=== PATIENT | male | born 1950 | race Caucasian/White ===

== ENCOUNTER 2021-05-08 11:34 | Outpatient (REF) | payer MEDICARE, SELFPAY ==
--- NOTE | ~2021-05-08 | XR_ITS ---
EXAMINATION: XR CHEST CLINICAL INFORMATION: COPD COMPARISON: None TECHNIQUE: 2 views of the chest were obtained. FINDINGS: The lungs are hypoexpanded with bandlike atelectasis in both midlungs. No acute pneumonic process seen. The heart size and pulmonary vascularity is normal. No gross bony abnormality seen. XR/XR chest 2V IMPRESSION: Bilateral bandlike atelectasis in both midlung regions.
== END 2021-05-08 11:35 | disposition home or self-care (01) ==
LOC: HO.HMGCX 11:34
PROVIDERS: PCP Internal Medicine; Visit Provider Internal Medicine
DX: J44.9 Chronic obstructive pulmonary disease, unspecified (principal)
CPT/HCPCS: 71046

== ENCOUNTER 2021-05-10 18:28 | Emergency (ER) | payer MEDICARE, SELFPAY ==
--- NOTE | ~2021-05-10 | XR_ITS ---
EXAMINATION: PORTABLE CHEST 1 VIEW CLINICAL INFORMATION: cough . COMPARISON: 05/08/2021. TECHNIQUE: Portable frontal view of the chest was obtained. FINDINGS: The lungs are well expanded. Minimal dependent atelectasis but no superimposed focal infiltrate, effusion, edema, or pneumothorax. Cardiac and mediastinal silhouettes are within normal limits for technique. No acute bony abnormality seen. XR/XR chest 1V IMPRESSION: Minimal atelectasis improved from the prior study.
[2021-05-10 19:08] VITALS: BP 122/78; PULSE 65; RESP 18; TEMP 36.8; O2SAT 89; BMI 34.8
[2021-05-10 19:39] LABS: MANUAL DIFF FLAG NO
[2021-05-10 19:40] LABS: Basophils Absolute Auto 0.1 X10*3/uL (0.0-0.2); Basophils Percent Auto 0.8 % (0-2); Eosinophils Absolute Auto 0.6 X10*3/uL (0.0-0.4); Hematocrit 49.2 % (42-52); Hemoglobin 16.2 g/dl (14.0-18.0); Imm Gran Abs Auto 0.02 X10*3/uL (0.00-0.03); Imm Gran Pct Auto 0.2 % (0.0-0.4); Lymphocytes Absolute Auto 3.2 X10*3/uL (1.2-4.9); Lymphocytes Percent Auto 31.8 % (20-40); Mean Corpuscular HGB Conc 32.9 g/dl (31.0-36.0); Mean Corpuscular Hemoglobin 29.3 pg (27.0-33.0); Mean Platelet Volume 9.4 fL (9.4-12.4); Monocytes Absolute Auto 1.1 X10*3/uL (0.1-1.2); Monocytes Percent Auto 10.3 % (2-11); Neutrophils Absolute Auto 5.2 X10*3/uL (2.0-8.3); Neutrophils Percent Auto 50.9 % (45-73); Platelet Count 360 X10*3/uL (160-400); Red Blood Count 5.53 X10*6/uL (4.60-5.80); Red Cell Distribution Width 17.1 % (11.0-16.0); White Blood Count 10.2 X10*3/uL (4.8-10.8)
[2021-05-10 19:55] LABS: COVID-19 Test Negative (Negative)
[2021-05-10 19:56] LABS: Alanine Aminotransferase 23 U/L (0-40); Albumin Level 4.1 g/dL (3.5-5.0); Alkaline Phosphatase 96 U/L (39-117); Anion Gap 14 (12-20); Aspartate Amino Transferase 18 U/L (5-37); Bilirubin Total 0.4 mg/dL (0.0-1.0); Blood Urea Nitrogen 28 mg/dL (9-16); Calcium 9.3 mg/dL (8.4-10.2); Carbon Dioxide 27 mmol/L (22-29); Chloride 107 mmol/L (96-108); Creatinine Clr Calc Pharmacy 73.1; Estimated Glomerular Filt Rate 59; Glucose Random 180 mg/dL (60-115); Potassium 4.5 mmol/L (3.3-5.1); Sodium 143 mmol/L (135-145); Total Protein 7.2 g/dL (6.5-8.0)
[2021-05-10] MEDS: Albuterol Sulfate (0.083%) 2.5 MG/3 ML VIAL.NEB 10 MG INHALE (22:01)
--- NOTE | 2021-05-10 22:18 | ED.SOB ---
HPI - SOB/Dyspnea General Chief Complaint: Dyspnea Stated Complaint: pneumonia? Time Seen by Provider: 05/10/21 21:34 Source: patient Mode of arrival: ambulatory Limitations: no limitations History of Present Illness HPI Narrative: Patient comes to emergency room complaining of shortness of breath. Patient states that he went to urgent care 2 days ago, diagnosed with bronchitis, sent home with Bactrim. Patient states that he still have dyspnea and cough. Patient has history of both, asthma and COPD. Patient denies fever chills, occasional dry cough. Patient denies chest pain, abdominal pain, nausea vomiting. Related Data Home Medications Medication Instructions Recorded Confirmed albuterol sulfate mg INHALATION Q6H PRN 06/23/20 04/30/21 albuterol sulfate 90 mcg/actuation INHALATION 06/23/20 04/30/21 aerosol inhaler aspirin 81 mg tablet,delayed 81 mg PO DAILY 06/23/20 04/30/21 release (Adult Low Dose Aspirin) docusate sodium 100 mg capsule 100 mg PO DAILY 06/23/20 04/30/21 (Stool Softener) fluticasone propionate 50 1 spray INTRANASAL DAILY 06/23/20 04/30/21 mcg/actuation nasal spray,suspension metoprolol succinate 50 mg 50 mg PO DAILY 06/23/20 04/30/21 tablet,extended release 24 hr oxybutynin chloride 10 mg 20 mg PO QAM 06/23/20 04/30/21 tablet,extended release 24 hr polyethylene glycol 3350 17 17 g PO DAILY 06/23/20 04/30/21 gram/dose oral powder (Miralax) revefenacin 175 mcg/3 mL solution mcg INHALATION 06/23/20 04/30/21 for nebulization valsartan 40 mg tablet 40 mg PO BID 06/23/20 04/30/21 amiodarone 200 mg tablet 200 mg PO BID 03/28/21 04/30/21 Previous Rx's Medication Instructions Recorded furosemide 40 mg tablet 40 mg PO QAM #90 tab 09/15/20 omeprazole 40 mg capsule,delayed 40 mg PO DAILY #90 cap 03/16/21 release sulfamethoxazole 800 1 tab PO BID 7 Days #14 tab 05/08/21 mg-trimethoprim 160 mg tablet (Bactrim DS) cefuroxime axetil 250 mg tablet 250 mg PO BID #14 tab 05/11/21 prednisone 50 mg tablet 50 mg PO DAILY #5 tab 05/11/21 Allergies Allergy/AdvReac Type Severity Reaction Status Date / Time fish derived [FISH] Allergy Unknown ANGIOEDEMA Verified 05/10/21 19:07 tamsulosin [Flomax] Allergy Unknown Unknown Verified 05/10/21 19:07 Review of Systems Review of Systems: Constitutional : No Weight loss, No Fever, No Chills, No Night Sweats, No Fatigue, No Malaise ENT/Mouth : No Hearing loss, No Ear Pain, No Nasal Congestion, No Sinus Pain, No Hoarseness, No sore throat, No Rhinorrhea, No Swallowing Difficulty Eyes: No Eye Pain, No Swelling, No Redness, No Foreign Body, No Discharge, No Vision Changes Cardiovascular : No Chest Pain, complaining of chest tightness, No SOB, No Dyspnea on Exertion, No Orthopnea, No Edema, No Palpitations Respiratory : Patient complaining of dry No Sputum, complaining of wheezing and dyspnea Gastrointestinal : No Nausea, No Vomiting, No Diarrhea, No Constipation, No abdominal Pain, No Hematochezia, No Melena Genitourinary : no irregular bleeding, No Dysuria, No Urinary Frequency, No Hematuria, No Urinary Incontinence, No Urgency, No Flank Pain, No Urinary Flow Changes, No Hesitancy Musculoskeletal : No joint pain, No Myalgias, No Joint Swelling Skin : No Skin Lesions, No rash Neuro : No Weakness, No Numbness, No Paresthesias, No Loss of Consciousness, No Dizziness, No Headache Psych : No Anxiety/Panic, No Depression, No SI/HI/AH/VH, No Social Issues, Heme/Lymph: No Bruising, No Bleeding,No Lymphadenopathy Endocrine : No Polyuria, No Polydipsia, No Temperature Intolerance [facility] Past Medical History Medical History Asthma Cardiomyopathy COVID-19 Hypertension Obesity Surgical History History of colonoscopy History of cystoscopy History of eye surgery History of surgery History of tonsillectomy History of transurethral resection of prostate Status post orchiopexy Family History Family History Father Heart disease Mother Colon cancer Brother No problems noted. Brother No problems noted. Sister No problems noted. Social History Social History Housing: House Alcohol intake: current Alcohol intake frequency: holidays/special occasions only Patient Tobacco Use Status: Former Tobacco user Tobacco use type: Cigarette Years Smoked: 50 e-Cigarette/Vaping Use: Never Used Second Hand Smoke Exposure: Yes Advance Directives: No Advance Directives Information Provided: No service: No Current occupational status: employed and retired Physical Exam Vital Signs: Vital Signs: Last Vital Signs Temp 98.3 F 05/10/21 19:08 Pulse 57 05/10/21 22:41 Resp 16 05/10/21 22:41 BP 129/70 05/10/21 22:41 Pulse Ox 96 05/10/21 22:41 Body Mass Index 34.8 Const: Other: Appearance: Alert. Oriented X3. Mild respiratory distress Eyes: Pupils equal, round and reactive to light. ENT: Pharynx normal. Neck: Normal inspection. Neck supple. No lymph nodes noted. No crepitus CVS: Normal heart rate and rhythm. Pulses normal. Normal S1 and S2 Respiratory: Patient has mild respiratory distress, decreased air movement, wheezing, no crackles. Abdomen: Soft and nontender. No rigidity. No distention. Skin: Skin warm and dry. Normal skin color. Normal skin turgor. Extremities: No lower extremity edema. No lower extremity edema. No Lacerations. No Rash Neuro: Oriented X 3. No motor deficit. No sensory deficit. Moving all extermities. No slurred speech. Course Course Course Narrative: Patient has history of both, COPD and asthma. At this time, patient has significant wheezing, dry cough, no increased sputum production, chest x-ray does not show any infiltrates. Sepsis is not suspected at this time, patient is likely having an asthma exacerbation rather than a COPD exacerbation. However, given his history patient will be treated empirically with antibiotics. Patient was given a Zithromax, ceftriaxone, magnesium, Solu-Medrol, and an hour long albuterol treatment. Patient is COVID negative Patient's white blood cell count 10.2, lactic within normal limits, no fever, sepsis not suspected. After the above-mentioned treatment, patient states that he feels much better, breathing at baseline. Ambulation trial was done, patient was asymptomatic. Patient's oxygen saturation dropped to 89%. I discussed with the patient that ideally he should be admitted. Patient declined, states he feels really well, states his baseline is 90%. Patient sat down on his oxygen improved to 92%. Patient wants to go home, declined admission Patient states he has enough albuterol for his breathing treatments and albuterol palms, declined additional prescription MDM - SOB/Dyspnea Lab Data Result diagrams: 05/10/21 19:32 05/10/21 19:32 Labs: Lab Results 05/10/21 05/10/21 05/10/21 Range/Units 19:32 19:32 19:32 WBC 10.2 (4.8-10.8) X10*3/uL RBC 5.53 (4.60-5.80) X10*6/uL Hgb 16.2 (14.0-18.0) g/dl Hct 49.2 (42-52) % MCV 89.0 (80-98) fL MCH 29.3 (27.0-33.0) pg MCHC 32.9 (31.0-36.0) g/dl RDW 17.1 H (11.0-16.0) % Plt Count 360 (160-400) X10*3/uL MPV 9.4 (9.4-12.4) fL Immature Gran % (Auto) 0.2 (0.0-0.4) % Neut % (Auto) 50.9 (45-73) % Lymph % (Auto) 31.8 (20-40) % [place] % (Auto) 10.3 (2-11) % Eos % (Auto) 6.0 H (0-4) % Baso % (Auto) 0.8 (0-2) % Lymph # (Auto) 3.2 (1.2-4.9) X10*3/uL [place] # (Auto) 1.1 (0.1-1.2) X10*3/uL Eos # (Auto) 0.6 H (0.0-0.4) X10*3/uL Baso # (Auto) 0.1 (0.0-0.2) X10*3/uL Abs Immat Gran (auto) 0.02 (0.00-0.03) X10*3/uL Absolute Neuts (auto) 5.2 (2.0-8.3) X10*3/uL Absolute Nucleated RBC 0.000 (0.0-0.012) X10*3/uL Nucleated RBC % (auto) 0.0 (0.0-0.2) /100WBC Sodium 143 (135-145) mmol/L Potassium 4.5 (3.3-5.1) mmol/L Chloride 107 (96-108) mmol/L Carbon Dioxide 27 (22-29) mmol/L Anion Gap 14 (12-20) BUN 28 H (9-16) mg/dL Creatinine 1.22 (0.5-1.4) mg/dL Estim Creat Clear Calc 73.1 Estimated GFR 59 Random Glucose 180 H (60-115) mg/dL Lactic Acid (0.5-2.0) mmol/L Calcium 9.3 (8.4-10.2) mg/dL Total Bilirubin 0.4 (0.0-1.0) mg/dL AST 18 (5-37) U/L ALT 23 (0-40) U/L Alkaline Phosphatase 96 (39-117) U/L Troponin I High Sens (<3.5-35.0) ng/L Total Protein 7.2 (6.5-8.0) g/dL Albumin 4.1 (3.5-5.0) g/dL COVID-19 (ROSIE) Negative (Negative) COVID-19 Clin Com See Note 05/10/21 05/10/21 Range/Units 19:32 22:55 WBC (4.8-10.8) X10*3/uL RBC (4.60-5.80) X10*6/uL Hgb (14.0-18.0) g/dl Hct (42-52) % MCV (80-98) fL MCH (27.0-33.0) pg MCHC (31.0-36.0) g/dl RDW (11.0-16.0) % Plt Count (160-400) X10*3/uL MPV (9.4-12.4) fL Immature Gran % (Auto) (0.0-0.4) % Neut % (Auto) (45-73) % Lymph % (Auto) (20-40) % [place] % (Auto) (2-11) % Eos % (Auto) (0-4) % Baso % (Auto) (0-2) % Lymph # (Auto) (1.2-4.9) X10*3/uL [place] # (Auto) (0.1-1.2) X10*3/uL Eos # (Auto) (0.0-0.4) X10*3/uL Baso # (Auto) (0.0-0.2) X10*3/uL Abs Immat Gran (auto) (0.00-0.03) X10*3/uL Absolute Neuts (auto) (2.0-8.3) X10*3/uL Absolute Nucleated RBC (0.0-0.012) X10*3/uL Nucleated RBC % (auto) (0.0-0.2) /100WBC Sodium (135-145) mmol/L Potassium (3.3-5.1) mmol/L Chloride (96-108) mmol/L Carbon Dioxide (22-29) mmol/L Anion Gap (12-20) BUN (9-16) mg/dL Creatinine (0.5-1.4) mg/dL Estim Creat Clear Calc Estimated GFR Random Glucose (60-115) mg/dL Lactic Acid 1.6 (0.5-2.0) mmol/L Calcium (8.4-10.2) mg/dL Total Bilirubin (0.0-1.0) mg/dL AST (5-37) U/L ALT (0-40) U/L Alkaline Phosphatase (39-117) U/L Troponin I High Sens 4.9 (<3.5-35.0) ng/L Total Protein (6.5-8.0) g/dL Albumin (3.5-5.0) g/dL COVID-19 (ROSIE) (Negative) COVID-19 Clin Com Discharge Plan Discharge Clinical Impression: COPD (chronic obstructive pulmonary disease) Qualifiers: COPD type: unspecified COPD Qualified Code(s): J44.9 - Chronic obstructive pulmonary disease, unspecified Patient Disposition: Home, Self-Care Instructions: COPD (Chronic Obstructive Pulmonary Disease) (ED) Additional Instructions: Please follow-up with your primary care physician tomorrow. If you have any worsening or new symptoms, please return to the emergency room or call 911 Prescriptions: New cefuroxime axetil 250 mg tablet 250 mg PO BID Qty: 14 RF: 0 prednisone 50 mg tablet 50 mg PO DAILY Qty: 5 RF: 0 No Action furosemide 40 mg tablet 40 mg PO QAM Qty: 90 RF: 8 omeprazole 40 mg capsule,delayed release(DR/EC) 40 mg PO DAILY Qty: 90 RF: 8 albuterol sulfate 90 mcg/actuation HFA aerosol inhaler inhalation RF: 0 metoprolol succinate 50 mg tablet extended release 24 hr 50 mg PO DAILY RF: 0 albuterol sulfate 2.5 mg /3 mL (0.083 %) solution for nebulization inhalation Q6H PRN (Reason: wheezing) RF: 0 oxybutynin chloride 10 mg tablet extended release 24hr 20 mg PO QAM RF: 0 fluticasone propionate 50 mcg/actuation spray,suspension 1 spray intranasal DAILY RF: 0 valsartan 40 mg tablet 40 mg PO BID RF: 0 Yupelri 175 mcg/3 mL solution for nebulization inhalation RF: 0 aspirin [Adult Low Dose Aspirin] 81 mg tablet,delayed release (DR/EC) 81 mg PO DAILY RF: 0 docusate sodium [Stool Softener] 100 mg capsule 100 mg PO DAILY RF: 0 polyethylene glycol 3350 [Miralax] 17 gram/dose powder 17 g PO DAILY RF: 0 amiodarone 200 mg tablet 200 mg PO BID RF: 0 sulfamethoxazole-trimethoprim [Bactrim DS] 800-160 mg tablet 1 tab PO BID 7 Days Qty: 14 RF: 0
--- NOTE | 2021-05-10 22:21 | ECG_ITS ---
Test Reason : SOB Blood Pressure : / mmHG Vent. Rate : 056 BPM Atrial Rate : 056 BPM P-R Int : 180 ms QRS Dur : 150 ms QT Int : 506 ms P-R-T Axes : 054 006 124 degrees QTc Int : 488 ms Sinus bradycardia Left bundle branch block Abnormal ECG When compared with ECG of 17-SEP-2018 02:07, Premature supraventricular complexes are no longer Present Vent. rate has decreased BY 46 BPM Left bundle branch block is now Present Referred By: Janett Hart Electronically Signed By:HOMERO RICHARDSON MD
[2021-05-10 22:41] VITALS: BP 129/70; PULSE 57; RESP 16; O2SAT 96
[2021-05-10 22:49] LABS: Troponin-I High Sensitivity 4.9 ng/L (<3.5-35.0)
[2021-05-10] MEDS: methylPREDNISolone Sod Succ 125 MG/2 ML VIAL IVPUSH (22:59)
[2021-05-10] MEDS: Magnesium Sulfate/H2O 2 GM/50 ML PIGGYBACK IV (23:00)
[2021-05-10 23:14] LABS: Lactic Acid 1.6 mmol/L (0.5-2.0)
[2021-05-10] MEDS: Azithromycin 500 MG in 0.9 % Sodium Chloride 250 ML 125 MG IV (23:31)
[2021-05-11] VITALS: BP 122/77; PULSE 81; RESP 17; O2SAT 91
--- NOTE | 2021-05-11 00:32 | PC.NURSE ---
ambulatory pulse ox lowest was 89% on room air with a pulse of 86, steady gait
== END 2021-05-11 01:30 | disposition home or self-care (01) ==
PROVIDERS: Emergency Provider Emergency Medicine; PCP Internal Medicine
DX: J44.9 Chronic obstructive pulmonary disease, unspecified (principal); I10 Essential (primary) hypertension; Z20.822 Contact with and (suspected) exposure to COVID-19
CPT/HCPCS: 36415; 71045; 80053; 83605; 84484; 85025; 87040; 87635; 93005; 96365; 96366; 96367; 96375; 99284; J0456; J0696; J2930; J3475

== ENCOUNTER 2021-10-26 15:03 | Outpatient (REF) | payer MEDICARE, OTHER, SELFPAY ==
[2021-10-26 16:34] LABS: INTERNATIONAL NORM RATIO 2.5 (0.9-1.1); Prothrombin Time 28.9 SEC (9.9-13.0)
== END 2021-10-26 15:04 | disposition home or self-care (01) ==
LOC: HO.LAB 15:03
PROVIDERS: PCP Internal Medicine; Visit Provider Internal Medicine
DX: I26.99 Other pulmonary embolism without acute cor pulmonale (principal)
CPT/HCPCS: 36415; 85610

== ENCOUNTER → 2021-11-01 09:51 | Outpatient (BNVA) | payer MEDICARE, OTHER, SELFPAY | PROVIDERS: PCP Internal Medicine; Visit Provider Internal Medicine | DX: I26.99 Other pulmonary embolism without acute cor pulmonale (principal); Z51.81 Encounter for therapeutic drug level monitoring; Z79.01 Long term (current) use of anticoagulants | CPT/HCPCS: 85610; 99202 ==

== ENCOUNTER → 2021-11-08 09:36 | Outpatient (BNVA) | payer MEDICARE, OTHER, SELFPAY | PROVIDERS: PCP Internal Medicine; Visit Provider Internal Medicine | DX: I26.99 Other pulmonary embolism without acute cor pulmonale (principal); Z51.81 Encounter for therapeutic drug level monitoring; Z79.01 Long term (current) use of anticoagulants | CPT/HCPCS: 85610; 99211 ==

== ENCOUNTER → 2021-11-15 09:47 | Outpatient (BNVA) | payer MEDICARE, OTHER, SELFPAY | PROVIDERS: PCP Internal Medicine; Visit Provider Internal Medicine | DX: I26.99 Other pulmonary embolism without acute cor pulmonale (principal); Z79.01 Long term (current) use of anticoagulants; Z51.81 Encounter for therapeutic drug level monitoring | CPT/HCPCS: 85610; 99211 ==

== ENCOUNTER → 2021-11-22 09:50 | Outpatient (BNVA) | payer MEDICARE, OTHER, SELFPAY | PROVIDERS: PCP Internal Medicine; Visit Provider Internal Medicine | DX: I26.99 Other pulmonary embolism without acute cor pulmonale (principal); Z79.01 Long term (current) use of anticoagulants; Z51.81 Encounter for therapeutic drug level monitoring | CPT/HCPCS: 85610; 99211 ==

== ENCOUNTER → 2021-12-03 13:21 | Outpatient (BNVA) | payer MEDICARE, OTHER, SELFPAY | PROVIDERS: PCP Internal Medicine; Visit Provider Internal Medicine | DX: I26.99 Other pulmonary embolism without acute cor pulmonale (principal); Z79.01 Long term (current) use of anticoagulants; Z51.81 Encounter for therapeutic drug level monitoring | CPT/HCPCS: 85610; 99211 ==

== ENCOUNTER → 2021-12-13 09:44 | Outpatient (BNVA) | payer MEDICARE, OTHER, SELFPAY | PROVIDERS: PCP Internal Medicine; Visit Provider Internal Medicine | DX: I26.99 Other pulmonary embolism without acute cor pulmonale (principal); Z79.01 Long term (current) use of anticoagulants; Z51.81 Encounter for therapeutic drug level monitoring | CPT/HCPCS: 85610; 99211 ==

== ENCOUNTER 2021-12-14 06:08 | Outpatient (REF) | payer MEDICARE, OTHER, SELFPAY ==
[2021-12-14 06:19] LABS: MANUAL DIFF FLAG NO
[2021-12-14 07:22] LABS: Basophils Absolute Auto 0.1 X10*3/uL (0.0-0.2); Eosinophils Absolute Auto 0.4 X10*3/uL (0.0-0.4); Eosinophils Percent Auto 3.2 % (0-4); Hematocrit 48.1 % (42.0-52.0); Hemoglobin 15.7 g/dl (14.0-18.0); Imm Gran Abs Auto 0.03 X10*3/uL (0.00-0.03); Imm Gran Pct Auto 0.3 % (0.0-0.4); Lymphocytes Absolute Auto 4.7 X10*3/uL (1.2-4.9); Lymphocytes Percent Auto 41.9 % (20-40); Mean Corpuscular HGB Conc 32.6 g/dl (31.0-36.0); Mean Corpuscular Hemoglobin 29.7 pg (27.0-33.0); Mean Corpuscular Volume 90.9 fL (80.0-98.0); Mean Platelet Volume 9.3 fL (9.4-12.4); Monocytes Absolute Auto 1.4 X10*3/uL (0.1-1.2); Monocytes Percent Auto 12.3 % (2-11); Neutrophils Absolute Auto 4.6 x10*3/uL (2.0-8.3); Neutrophils Percent Auto 41.3 % (45-73); Platelet Count 489 X10*3/uL (160-400); Red Blood Count 5.29 X10*6/uL (4.60-5.80); Red Cell Distribution Width 15.7 % (11.0-16.0); White Blood Count 11.1 X10*3/uL (4.8-10.8)
[2021-12-14 07:31] LABS: Estimated Average Glucose 169 mg/dL; Hemoglobin A1c % 7.5 %
[2021-12-14 07:37] LABS: Alanine Aminotransferase 17 U/L (0-40); Albumin Level 3.9 g/dL (3.5-5.0); Alkaline Phosphatase 94 U/L (39-117); Anion Gap 14 (12-20); Aspartate Amino Transferase 15 U/L (5-37); Bilirubin Total 0.6 mg/dL (0.0-1.0); Blood Urea Nitrogen 27 mg/dL (9-16); Calcium 9.5 mg/dL (8.4-10.2); Carbon Dioxide 25 mmol/L (22-29); Chloride 108 mmol/L (96-108); Cholesterol 183 mg/dL; Estimated Glomerular Filt Rate > 60; Glucose Fasting 98 mg/dL (60-99); HDL Cholesterol 37 mg/dL; LDL Cholesterol Calculated 131 mg/dl; Potassium 4.7 mmol/L (3.3-5.1); Sodium 142 mmol/L (135-145); Total Protein 7.2 g/dL (6.5-8.0); Triglycerides 78 mg/dL
== END 2021-12-14 06:09 | disposition home or self-care (01) ==
LOC: HO.LAB 06:08
PROVIDERS: PCP Internal Medicine; Visit Provider Internal Medicine
DX: Z00.00 Encounter for general adult medical examination without abnormal findings (principal); E11.65 Type 2 diabetes mellitus with hyperglycemia; Z13.220 Encounter for screening for lipoid disorders
CPT/HCPCS: 36415; 80053; 80061; 83036; 85025

== ENCOUNTER → 2021-12-27 09:45 | Outpatient (BNVA) | payer MEDICARE, OTHER, SELFPAY | PROVIDERS: PCP Internal Medicine; Visit Provider Internal Medicine | DX: I26.99 Other pulmonary embolism without acute cor pulmonale (principal); Z79.01 Long term (current) use of anticoagulants; Z51.81 Encounter for therapeutic drug level monitoring | CPT/HCPCS: 85610; 99211 ==

== ENCOUNTER → 2022-01-10 09:47 | Outpatient (BNVA) | payer MEDICARE, OTHER, SELFPAY | PROVIDERS: PCP Internal Medicine; Visit Provider Internal Medicine | DX: I26.99 Other pulmonary embolism without acute cor pulmonale (principal); Z79.01 Long term (current) use of anticoagulants; Z51.81 Encounter for therapeutic drug level monitoring | CPT/HCPCS: 85610; 99211 ==

== ENCOUNTER → 2022-01-18 09:51 | Outpatient (BNVA) | payer MEDICARE, OTHER, SELFPAY | PROVIDERS: PCP Internal Medicine; Visit Provider Internal Medicine | DX: I26.99 Other pulmonary embolism without acute cor pulmonale (principal); Z79.01 Long term (current) use of anticoagulants; Z51.81 Encounter for therapeutic drug level monitoring | CPT/HCPCS: 85610; 99211 ==

== ENCOUNTER → 2022-01-31 13:13 | Outpatient (BNVA) | payer MEDICARE, OTHER, SELFPAY | PROVIDERS: PCP Internal Medicine; Visit Provider Internal Medicine | DX: I26.99 Other pulmonary embolism without acute cor pulmonale (principal); Z51.81 Encounter for therapeutic drug level monitoring; Z79.01 Long term (current) use of anticoagulants | CPT/HCPCS: 85610; 99211 ==

== ENCOUNTER → 2022-02-14 10:15 | Outpatient (BNVA) | payer MEDICARE, OTHER, SELFPAY | PROVIDERS: PCP Internal Medicine; Visit Provider Internal Medicine | DX: I26.99 Other pulmonary embolism without acute cor pulmonale (principal); Z51.81 Encounter for therapeutic drug level monitoring; Z79.01 Long term (current) use of anticoagulants | CPT/HCPCS: 85610; 99211 ==

== ENCOUNTER → 2022-02-28 13:05 | Outpatient (BNVA) | payer MEDICARE, OTHER, SELFPAY | PROVIDERS: PCP Internal Medicine; Visit Provider Internal Medicine | DX: I26.99 Other pulmonary embolism without acute cor pulmonale (principal); Z79.01 Long term (current) use of anticoagulants; Z51.81 Encounter for therapeutic drug level monitoring | CPT/HCPCS: 85610; 99211 ==

== ENCOUNTER → 2022-03-04 08:38 | Outpatient (BNVA) | payer MEDICARE, OTHER, SELFPAY | PROVIDERS: PCP Internal Medicine; Visit Provider Internal Medicine | DX: I26.99 Other pulmonary embolism without acute cor pulmonale (principal); Z79.01 Long term (current) use of anticoagulants; Z51.81 Encounter for therapeutic drug level monitoring | CPT/HCPCS: 85610; 99211 ==

== ENCOUNTER → 2022-03-18 09:46 | Outpatient (BNVA) | payer MEDICARE, OTHER, SELFPAY | PROVIDERS: PCP Internal Medicine; Visit Provider Internal Medicine | DX: I26.99 Other pulmonary embolism without acute cor pulmonale (principal); Z79.01 Long term (current) use of anticoagulants; Z51.81 Encounter for therapeutic drug level monitoring | CPT/HCPCS: 85610; 99211 ==

== ENCOUNTER → 2022-03-26 15:28 | Outpatient (BNVA) | payer MEDICARE, OTHER, SELFPAY | PROVIDERS: PCP Internal Medicine; Visit Provider Internal Medicine | DX: I26.99 Other pulmonary embolism without acute cor pulmonale (principal); Z51.81 Encounter for therapeutic drug level monitoring; Z79.01 Long term (current) use of anticoagulants | CPT/HCPCS: 85610; 99211 ==

== ENCOUNTER 2022-03-27 10:36 | Emergency (ER) | payer MEDICARE, OTHER, SELFPAY ==
--- NOTE | ~2022-03-27 | CT_ITS ---
EXAMINATION: CT ABDOMEN AND PELVIS WITHOUT CONTRAST CLINICAL INFORMATION: Left lower quadrant abdominal pain and hematuria. COMPARISON: None TECHNIQUE: Multidetector volumetric imaging was performed from the superior aspect of the liver through the pubic symphysis. Sagittal and coronal reformatted images were obtained on the technologist's workstation. This CT examination was performed using dose optimization techniques as appropriate, variously including the following: *Automated exposure control *Adjustment of mA and/or kV according to patient size (this includes techniques or standardized protocols for targeted exams where dose is matched to indication/reason for exam; i.e. extremities or head) *Use of iterative reconstruction technique DLP: 772 mGy-cm FINDINGS: LUNG BASES: There are a few linear streaks of atelectasis in the visualized lung bases. No pulmonary consolidation or pleural effusion. LIVER: The liver has lobulated contour and normal parenchymal attenuation. No liver masses are identified on this noncontrast examination. GALLBLADDER AND BILIARY TREE: Gallbladder is surgically absent. Pneumobilia is present. Query if there is history of sphincterotomy. No dilated bile ducts. PANCREAS: No acute findings within the atrophied pancreas. SPLEEN: There are splenules in the left upper quadrant. ADRENAL GLANDS: Normal. RIGHT KIDNEY AND URETER: The kidney has normal size and cortical attenuation. Small simple-appearing cortical cyst of the mid right kidney. No renal imaging follow-up is recommended for a simple cyst. 0.5 cm calyceal stone of the upper pole and 0.3 cm calyceal stone of the lower pole. No ureteral stones. No hydroureteronephrosis. LEFT KIDNEY AND URETER: Mild hydronephrosis, proximal hydroureter and small volume perinephric fluid/edema are caused by a stone that measures up to 0.4 cm maximum dimension at the L4 level of the ureter. The distal ureter is unremarkable. BLADDER: Normal. No calculi or wall thickening. BOWEL AND PERITONEUM: No dilated bowel loops. Prior surgery along the gastrointestinal tract with suture seen along the distal stomach, intact proximal small bowel anastomosis, and partial right hemicolectomy. The sigmoid colon has an elongated, redundant appearance. Large amount of fecal material is present in the nondilated colon. Findings are suggestive of constipation. No focal bowel wall thickening. No abdominal free fluid or free air. ABDOMINAL WALL: Large body habitus. There is diastases of rectus abdominis muscles. A small, shallow fat-containing ventral abdominal wall hernia is present in the epigastric region. There is mild protrusion of bowel between the diastatic muscles in the periumbilical region. There is a fat-containing right inguinal hernia. VASCULATURE: Atherosclerotic calcification of the abdominal aorta and iliac arteries without aneurysm. LYMPH NODES: No pathologic sized lymph nodes in the abdomen or pelvis. No inguinal lymphadenopathy. PELVIC VISCERA: Mildly enlarged prostate gland. No pelvic free fluid. A somewhat U-shaped density in the midline of the lower pelvis travels around the rectosigmoid junction; this could represent a remotely placed sling. SKELETAL: No acute findings in the degenerated thoracolumbar spine. Mild vacuum disc degenerative change at L2-L3 and L5-S1. Bone island of the posterior right iliac bone. CT/CT abdomen pelvis wo con IMPRESSION: * Mild left hydronephrosis and perinephric edema are caused by a stone at the L4 level of the left ureter. * There are nonobstructing stones of the right kidney. No right-sided hydronephrosis. * Large amount fecal material material is present in the nondilated colon; this suggests presence of constipation. * Chronic diastases of rectus abdominis muscles, mild protrusion of small bowel between diastatic muscles, and shallow fat-containing ventral abdominal wall hernia. Fat-containing right inguinal hernia is noted, as well. * The finding of pneumobilia is likely secondary to a remote sphincterotomy. No dilated bile ducts.
[2022-03-27 10:40] VITALS: BP 164/102; PULSE 75; RESP 18; TEMP 36.9; O2SAT 94; BMI 35.2
--- NOTE | 2022-03-27 10:45 | ECG_ITS ---
Test Reason : sob Blood Pressure : / mmHG Vent. Rate : 069 BPM Atrial Rate : 069 BPM P-R Int : 172 ms QRS Dur : 142 ms QT Int : 458 ms P-R-T Axes : 075 -05 097 degrees QTc Int : 490 ms Normal sinus rhythm with sinus arrhythmia Left bundle branch block Abnormal ECG When compared with ECG of 10-MAY-2021 22:47, No significant change was found Referred By: Generic ED Physician Electronically Signed By:KAYLYNN HOLT
[2022-03-27 11:14] LABS: MANUAL DIFF FLAG NO
[2022-03-27 11:20] LABS: Appearance Urine Clear; Color Urine Yellow; Glucose Urine UA Negative (Negative); Leukocyte Esterase Urine Negative (Negative); Nitrite Urine Negative (Negative); PH 5.5 (5.0-8.0); Urine Blood Large (3+) (Negative); Urine Ketones Trace mg/dL (Negative); Urine Protein Trace mg/dL (Neg-Trace)
[2022-03-27 11:21] LABS: Basophils Absolute Auto 0.1 X10*3/uL (0.0-0.2); Basophils Percent Auto 0.5 % (0-2); Eosinophils Percent Auto 0.1 % (0-4); Hematocrit 48.5 % (42.0-52.0); Hemoglobin 16.1 g/dl (14.0-18.0); Imm Gran Abs Auto 0.08 X10*3/uL (0.00-0.03); Imm Gran Pct Auto 0.5 % (0.0-0.4); Lymphocytes Absolute Auto 1.9 X10*3/uL (1.2-4.9); Lymphocytes Percent Auto 11.8 % (20-40); Mean Corpuscular HGB Conc 33.2 g/dl (31.0-36.0); Mean Corpuscular Hemoglobin 29.5 pg (27.0-33.0); Mean Platelet Volume 9.3 fL (9.4-12.4); Monocytes Absolute Auto 1.5 X10*3/uL (0.1-1.2); Neutrophils Absolute Auto 12.8 x10*3/uL (2.0-8.3); Neutrophils Percent Auto 78.1 % (45-73); Platelet Count 408 X10*3/uL (160-400); Red Blood Count 5.45 X10*6/uL (4.60-5.80); Red Cell Distribution Width 16.2 % (11.0-16.0); White Blood Count 16.4 X10*3/uL (4.8-10.8)
[2022-03-27 11:22] LABS: INTERNATIONAL NORM RATIO 1.5 (0.9-1.1); Prothrombin Time 17.3 SEC (10.0-13.1)
[2022-03-27 11:23] LABS: Bacteria Urine None Seen (None Seen); Hyaline Casts Urine 0-2 /LPF (0-2); RBC Urine >20 /HPF (0-2); Squamous Epithelial Cell Urine 0-2 /HPF (0-2); WBC Urine 0-5 /HPF (0-5)
[2022-03-27 11:28] LABS: Anion Gap 17 (12-20); Blood Urea Nitrogen 29 mg/dL (9-16); Calcium 8.8 mg/dL (8.4-10.2); Carbon Dioxide 20 mmol/L (22-29); Chloride 108 mmol/L (96-108); Creatinine Clr Calc Pharmacy 80.1; Estimated Glomerular Filt Rate > 60; Glucose Random 124 mg/dL (60-115); Potassium 4.2 mmol/L (3.3-5.1); Sodium 141 mmol/L (135-145)
[2022-03-27] MEDS: Ondansetron ODT 4 MG TAB.RAPDIS TRANSLINGU (12:04)
== END 2022-03-27 19:35 | disposition left against medical advice (07) ==
PROVIDERS: Emergency Provider Emergency Medicine; PCP Internal Medicine
DX: R06.02 Shortness of breath (principal); R10.32 Left lower quadrant pain; Z79.899 Other long term (current) drug therapy
CPT/HCPCS: 36415; 74176; 80048; 81001; 85025; 85610; 93005; 99282; 99284

== ENCOUNTER 2022-03-28 06:56 | Emergency (ER) | payer MEDICARE, OTHER, SELFPAY ==
--- NOTE | ~2022-03-28 | US_ITS ---
EXAMINATION: US RENAL LEFT CLINICAL INFORMATION: New acute renal insufficiency. Evaluate hydronephrosis.. COMPARISON: Abdomen CT from 03/27/2022. TECHNIQUE: Abdomen CT from 03/27/2022. FINDINGS: Left kidney has normal cortical thickness and cortical echotexture. The kidney measures 13.4 x 6.8 x 6.5 cm (sag x AP x trans dimension). A focal parenchymal lesion. No evidence of renal stone. There is mild caliectasis without pelviectasis. This represents improvement in the hydronephrosis observed on CT exam of 03/27/2022. At the urinary bladder, a left ureteral jet is visualized. No bladder wall thickening or bladder calculus. US/US renal LT IMPRESSION: Interval improvement compared to 03/27/2022. There is mild residual caliectasis without pelviectasis of the left kidney, and a left ureteral jet is visualized. The improvement suggests possibility that there has been decreased obstructive effect or passage of the previously observed ureteral stone.
--- NOTE | ~2022-03-28 | XR_ITS ---
EXAMINATION: XR CHEST CLINICAL INFORMATION: Hypoxia COMPARISON: Chest radiograph from 05/10/2021 TECHNIQUE: 2 views of the chest were obtained. FINDINGS: Chronic interstitial lung markings. Increased prominence of the pulmonary vasculature. Bibasilar atelectasis versus scarring. No pneumothorax. Trachea is midline. Cardiomediastinal silhouette is stable. Aorta demonstrates tortuosity. No large pleural effusion. Degenerative changes of the thoracolumbar spine. Soft tissues are unremarkable. XR/XR chest 2V IMPRESSION: 1. Chronic interstitial lung markings. 2. Increased prominence of the pulmonary vasculature. 3. Bibasilar atelectasis versus scarring.
[2022-03-28 07:13] VITALS: BP 147/89; PULSE 65; RESP 18; TEMP 36.9; O2SAT 92; BMI 35.2
[2022-03-28] MEDS: Ondansetron ODT 4 MG TAB.RAPDIS TRANSLINGU (07:17)
[2022-03-28 11:23] LABS: MANUAL DIFF FLAG NO
[2022-03-28 11:25] LABS: Basophils Absolute Auto 0.1 X10*3/uL (0.0-0.2); Basophils Percent Auto 0.4 % (0-2); Eosinophils Percent Auto 0.1 % (0-4); Hematocrit 50.7 % (42.0-52.0); Hemoglobin 16.8 g/dl (14.0-18.0); Imm Gran Abs Auto 0.06 X10*3/uL (0.00-0.03); Imm Gran Pct Auto 0.4 % (0.0-0.4); Lymphocytes Percent Auto 12.4 % (20-40); Mean Corpuscular HGB Conc 33.1 g/dl (31.0-36.0); Mean Corpuscular Hemoglobin 29.8 pg (27.0-33.0); Mean Corpuscular Volume 89.9 fL (80.0-98.0); Monocytes Absolute Auto 1.3 X10*3/uL (0.1-1.2); Monocytes Percent Auto 8.3 % (2-11); Neutrophils Absolute Auto 12.4 x10*3/uL (2.0-8.3); Neutrophils Percent Auto 78.4 % (45-73); Platelet Count 405 X10*3/uL (160-400); Red Blood Count 5.64 X10*6/uL (4.60-5.80); Red Cell Distribution Width 16.3 % (11.0-16.0); White Blood Count 15.7 X10*3/uL (4.8-10.8)
[2022-03-28 11:28] VITALS: BP 158/94; PULSE 71; RESP 18; TEMP 37.1; O2SAT 90
--- NOTE | 2022-03-28 11:28 | ED.ABDPAIN ---
HPI - Abdominal Pain General Chief Complaint: Abdominal Pain Stated Complaint: abd pain Time Seen by Provider: 03/28/22 11:07 Source: patient Mode of arrival: ambulatory Limitations: no limitations History of Present Illness HPI narrative: 71-year-old male with history of CHF, COPD, GERD, obesity, history of PE in October 2021 in the setting of COVID-19, on Coumadin who presents to the ER for evaluation of left lower quadrant pain that started yesterday. He reports the pain started out of nowhere in is severe, sharp in nature. It is constant. He has had dry heaving and is unable to tolerate p.o.. He reports increased urinary frequency but denies any blood in his urine or dysuria. He denies any fever or chills. He denies any back pain. He denies any history of kidney stones in the past. Patient came to the ER yesterday when the pain started however he had to leave after his workup was complete, prior to seeing a provider because he was unable to drive in the dark. Pain persisted and he was dry heaving this morning, prompting re-evaluation this morning. MD elicited complaint: abdominal pain Pertinent past history: none Onset (ago): day(s) (1) Pain Consistency: constant Location: LLQ Severity: severe Quality: stabbing Radiation: none Migration to: no migration Exacerbating factors: movement Relieving factors: nothing Associated symptoms: nausea and vomiting Related Data Home Medications Medication Instructions Recorded Confirmed albuterol sulfate 2.5 mg/3 mL mg inhalation Q6H PRN wheezing 06/23/20 03/26/22 (0.083 %) solution for nebulization albuterol sulfate 90 mcg/actuation inhalation 06/23/20 03/26/22 aerosol inhaler aspirin 81 mg tablet,delayed 81 mg PO DAILY 06/23/20 03/26/22 release (Adult Low Dose Aspirin) docusate sodium 100 mg capsule 100 mg PO DAILY 06/23/20 03/26/22 (Stool Softener) metoprolol succinate 50 mg 50 mg PO DAILY 06/23/20 03/26/22 tablet,extended release 24 hr oxybutynin chloride 10 mg 20 mg PO QAM 06/23/20 03/26/22 tablet,extended release 24 hr polyethylene glycol 3350 17 17 g PO DAILY 11/20/20 08/23/22 gram/dose oral powder (Miralax) valsartan 40 mg tablet 40 mg PO BID 06/23/20 03/26/22 fluticasone fur. 100 mcg-umeclid 1 ea inhalation DAILY 11/22/21 03/26/22 62.5 mcg-vilant 25 mcg inhalat.powder (Trelegy Ellipta) blood sugar diagnostic (FreeStyle #10 ea 11/27/21 03/26/22 Lite Strips) blood-glucose meter (FreeStyle #1 ea 11/27/21 03/26/22 [place] Lite kit) lancets 28 gauge (FreeStyle #100 ea 11/27/21 03/26/22 Lancets) triamcinolone acetonide 0.1 % 1 appl topical BID-TID 12/13/21 03/26/22 topical cream hydrocortisone 2.5 % topical cream appl topical 01/18/22 03/26/22 Previous Rx's Medication Instructions Recorded omeprazole 40 mg capsule,delayed 40 mg PO DAILY #90 caps 03/16/21 release furosemide 40 mg tablet 40 mg PO QAM #90 tabs 10/23/21 warfarin 7.5 mg tablet 7.5 mg PO DAILY #90 tabs 11/08/21 metformin 1,000 mg tablet 1,000 mg PO BID #180 tabs 11/15/21 fluticasone propionate 50 1 spray intranasal DAILY #16 grams 12/10/21 mcg/actuation nasal spray,suspension glimepiride 1 mg tablet 1 mg PO DAILY #90 tabs 12/10/21 ondansetron 4 mg disintegrating 4 mg PO Q8H PRN nausea and 03/28/22 tablet vomiting #6 tabs oxycodone 5 mg tablet 5 mg PO Q8H PRN severe pain (scale 03/28/22 score 7-10) #5 tabs prednisone 50 mg tablet 50 mg PO DAILY #5 tabs 03/28/22 Allergies Allergy/AdvReac Type Severity Reaction Status Date / Time nicotine Allergy Intermediate Rash Verified 03/26/22 15:28 fish derived [FISH] Allergy Unknown ANGIOEDEMA Verified 03/26/22 15:28 tamsulosin [Flomax] AdvReac Intermediate nightmares Verified 03/26/22 15:28 Review of Systems Review of Systems Constitutional: No Fever, No Chills ENT/Mouth: No sore throat, No Rhinorrhea, No Swallowing Difficulty Eyes: No Eye Pain, No Swelling, No Redness Cardiovascular: No Chest Pain, No SOB, No Orthopnea, No Edema Respiratory: No Cough, No Sputum, No Wheezing, No dyspnea Gastrointestinal: + Nausea, + Vomiting, No Diarrhea, + abdominal Pain, No Hematochezia, No Melena Genitourinary: No Dysuria, + Urinary Frequency, No Hematuria Musculoskeletal: No joint pain, No Myalgias Skin: No Skin Lesions, No rash Neuro: + Weakness, No Numbness, No Dizziness, No Headache Psych: No Anxiety/Panic, No Depression Heme/Lymph: No Bruising, No Lymphadenopathy Endocrine: No Polyuria, No Polydipsia [facility] Past Medical History Medical History Asthma Cardiomyopathy COVID-19 Hypertension Obesity Surgical History History of colonoscopy History of cystoscopy History of eye surgery History of surgery History of tonsillectomy History of transurethral resection of prostate Status post orchiopexy Family History Family History Father Heart disease Mother Colon cancer Brother No problems noted. Brother No problems noted. Sister No problems noted. Social History Social History Housing: House Alcohol intake: current Alcohol intake frequency: holidays/special occasions only Patient Tobacco Use Status: Former Tobacco user Tobacco use type: Cigarette Years Smoked: 50 e-Cigarette/Vaping Use: Never Used Second Hand Smoke Exposure: Yes Advance Directives: Yes Advance Directives Information Provided: No Advance Directives on File: No service: No Current occupational status: employed and retired Current occupation: retired Cognitive needs: No Hearing needs: No Vision needs: Yes Physical Exam ED Vital Signs: Vital Signs - 24 hr 03/28/22 07:13 03/28/22 11:28 03/28/22 11:34 Temperature 98.4 F 98.8 F Pulse Rate 65 71 Respiratory Rate 18 18 18 Blood Pressure 147/89 H 158/94 H Pulse Oximetry 92 90 L Oxygen Delivery Method Room Air Room Air 03/28/22 14:15 Temperature 98.3 F Pulse Rate 78 Respiratory Rate 18 Blood Pressure 135/80 Pulse Oximetry 89 L Oxygen Delivery Method Room Air BMI result Body Mass Index 35.2 Appearance: Alert. Oriented X3. No acute distress. Eyes: Pupils equal, round and reactive to light. ENT: Pharynx normal. Neck: Normal inspection. Neck supple. CVS: Normal heart rate and rhythm. Pulses normal. Respiratory: No respiratory distress. Breath sounds normal. Abdomen: Rotund, obese, Soft with LLQ tenderness with rebound. normal +BS x4. No CVA tenderness Skin: Skin warm and dry. Normal skin color. Normal skin turgor. No rashes. Extremities: No lower extremity edema. Neuro: Oriented X 3. No motor deficit. No sensory deficit. Course Course Course Narrative: 71-year-old male with a history of CHF, COPD, GERD, PE on Coumadin who presents to the ER for evaluation of left lower quadrant pain, nausea, vomiting that started yesterday. He also has urinary frequency. He came to the ER yesterday for evaluation but ended up leaving without being seen because he could not drive at night. His labs yesterday showed a leukocytosis with white blood cell count [id number]. He also had a CT scan of his abdomen that is showing left-sided hydronephrosis with a 4 mm kidney stone. His urinalysis showed blood but no infection. On arrival to the ER today patient is uncomfortable appearing. He has tenderness in his left lower quadrant. No CVA tenderness. He is afebrile, but saturating 90% on room air. He reports this is his baseline because he has a history of COPD. He is not short of breath. Will plan to repeat his lab workup today, repeat UA. Will start an IV, give him IV fluids, pain control. Hopefully he can pass the stone on his own, he is on Coumadin. Will need to check INR. Patient updated on plan of care. Disposition pending results and improvement. Reevaluation(s) Reevaluation #1: Patient found to be hypoxic to 82% on room air, good +waveform. He is not short of breath or symptomatic. Placed on 2 L nasal cannula, will get chest x-ray and BNP for further evaluation. Reevaluation #2: Labs showing white blood cell count improved slightly to 15.7. He has a new TONY with creatinine of 1.61 from 1.07 yesterday. Will get ultrasound of the left kidney to see if there is worsening hydronephrosis on that side. Pain is improved with morphine and steroids. IV fluids infusing. Patient maintaining saturation 88% and sleeping comfortably on 2 L nasal cannula. Reevaluation #3: Patient has been weaned off of oxygen. He is saturating 90%. He is asymptomatic and reports this is his baseline. Repeat urinalysis today showing blood, no evidence of infection. Renal ultrasound done showing improvement in hydronephrosis. He is feeling much better. He is tolerating p.o.. At this time comfortable with discharge home, plan to give him a course of steroids for ureteral swelling to allow passage of the stone. He does not tolerate Flomax due to nightmares, listed as an allergy. Will also give Zofran and oxycodone for severe pain. Unable to do NSAIDs because he is on Coumadin. He has urologist in [place] he will follow up with. He was given strict return precautions and is stable for discharge home with outpatient follow-up. MDM - Abdominal Pain Lab Data Result diagrams: 03/28/22 11:19 03/28/22 11:19 Labs: Lab Results 03/28/22 03/28/22 03/28/22 Range/Units 11:19 11:19 11:19 WBC 15.7 H (4.8-10.8) X10*3/uL RBC 5.64 (4.60-5.80) X10*6/uL Hgb 16.8 (14.0-18.0) g/dl Hct 50.7 (42.0-52.0) % MCV 89.9 (80.0-98.0) fL MCH 29.8 (27.0-33.0) pg MCHC 33.1 (31.0-36.0) g/dl RDW 16.3 H (11.0-16.0) % Plt Count 405 H (160-400) X10*3/uL MPV 9.0 L (9.4-12.4) fL Immature Gran % (Auto) 0.4 (0.0-0.4) % Neut % (Auto) 78.4 H (45-73) % Lymph % (Auto) 12.4 L (20-40) % [place] % (Auto) 8.3 (2-11) % Eos % (Auto) 0.1 (0-4) % Baso % (Auto) 0.4 (0-2) % Lymph # (Auto) 2.0 (1.2-4.9) X10*3/uL [place] # (Auto) 1.3 H (0.1-1.2) X10*3/uL Eos # (Auto) 0.0 (0.0-0.4) X10*3/uL Baso # (Auto) 0.1 (0.0-0.2) X10*3/uL Abs Immat Gran (auto) 0.06 H (0.00-0.03) X10*3/uL Absolute Neuts (auto) 12.4 H (2.0-8.3) x10*3/uL Absolute Nucleated RBC 0.000 (0.0-0.012) X10*3/uL Nucleated RBC % (auto) 0.0 (0.0-0.2) /100WBC PT 25.8 H (10.0-13.1) SEC INR 2.2 H (0.9-1.1) Sodium 142 (135-145) mmol/L Potassium 4.3 (3.3-5.1) mmol/L Chloride 104 (96-108) mmol/L Carbon Dioxide 25 (22-29) mmol/L Anion Gap 17 (12-20) BUN 31 H (9-16) mg/dL Creatinine 1.61 H (0.5-1.4) mg/dL Estim Creat Clear Calc 53.2 Estimated GFR 43 Random Glucose 116 H (60-115) mg/dL Calcium 8.7 (8.4-10.2) mg/dL B-Natriuretic Peptide (<100) pg/mL Urine Color Urine Appearance Urine pH (5.0-8.0) Ur Specific [place] (1.005-1.025) Urine Protein (Neg-Trace) mg/dL Urine Glucose (UA) (Negative) mg/dL Urine Ketones (Negative) mg/dL Urine Blood (Negative) Urine Nitrite (Negative) Ur Leukocyte Esterase (Negative) Urine RBC (0-2) /HPF Urine WBC (0-5) /HPF Ur Squamous Epith Cells (0-2) /HPF Urine Bacteria (None Seen) Hyaline Casts 03/28/22 03/28/22 Range/Units 11:19 14:21 WBC (4.8-10.8) X10*3/uL RBC (4.60-5.80) X10*6/uL Hgb (14.0-18.0) g/dl Hct (42.0-52.0) % MCV (80.0-98.0) fL MCH (27.0-33.0) pg MCHC (31.0-36.0) g/dl RDW (11.0-16.0) % Plt Count (160-400) X10*3/uL MPV (9.4-12.4) fL Immature Gran % (Auto) (0.0-0.4) % Neut % (Auto) (45-73) % Lymph % (Auto) (20-40) % [place] % (Auto) (2-11) % Eos % (Auto) (0-4) % Baso % (Auto) (0-2) % Lymph # (Auto) (1.2-4.9) X10*3/uL [place] # (Auto) (0.1-1.2) X10*3/uL Eos # (Auto) (0.0-0.4) X10*3/uL Baso # (Auto) (0.0-0.2) X10*3/uL Abs Immat Gran (auto) (0.00-0.03) X10*3/uL Absolute Neuts (auto) (2.0-8.3) x10*3/uL Absolute Nucleated RBC (0.0-0.012) X10*3/uL Nucleated RBC % (auto) (0.0-0.2) /100WBC PT (10.0-13.1) SEC INR (0.9-1.1) Sodium (135-145) mmol/L Potassium (3.3-5.1) mmol/L Chloride (96-108) mmol/L Carbon Dioxide (22-29) mmol/L Anion Gap (12-20) BUN (9-16) mg/dL Creatinine (0.5-1.4) mg/dL Estim Creat Clear Calc Estimated GFR Random Glucose (60-115) mg/dL Calcium (8.4-10.2) mg/dL B-Natriuretic Peptide 375 H (<100) pg/mL Urine Color Yellow Urine Appearance Clear Urine pH 5.5 (5.0-8.0) Ur Specific [place] 1.020 (1.005-1.025) Urine Protein Negative (Neg-Trace) mg/dL Urine Glucose (UA) Negative (Negative) mg/dL Urine Ketones Negative (Negative) mg/dL Urine Blood Moderate (2+) H (Negative) Urine Nitrite Negative (Negative) Ur Leukocyte Esterase Negative (Negative) Urine RBC 11-20 H (0-2) /HPF Urine WBC 0-5 (0-5) /HPF Ur Squamous Epith Cells 0-2 (0-2) /HPF Urine Bacteria None Seen (None Seen) Hyaline Casts Not Reportable Critical Care Time Critical Care Time Critical Care Time: Yes Total Critical Care Time: 35 Attestation: I have personally provided critical care time exclusive of time spent on separately billable procedures. Time includes review of lab data, radiology results, frequent bedside reassessments, and monitoring for potential decompensation. Intervention performed as documented. Discharge Plan Discharge Clinical Impression: Kidney stone on left side, TONY (acute kidney injury) Patient Disposition: Home, Self-Care Instructions: Kidney Stones (ED), How to Strain Your Urine (ED), Hydronephrosis (ED) Additional Instructions: Your lab workup today showed evidence of mild dehydration. Make sure you are drinking of plenty of fluids. Your ultrasound showed that dilation of your kidney is improved, this means that your passing the kidney stone and the level of obstruction is improving. Take all the medications as prescribed. Recommend following up with your urologist for follow-up. If you develop new or worsening symptoms call 911 or come back to the ER for further evaluation. Prescriptions: New ondansetron 4 mg tablet,disintegrating 4 mg PO Q8H PRN (Reason: nausea and vomiting) Qty: 6 0RF prednisone 50 mg tablet 50 mg PO DAILY Qty: 5 0RF oxycodone 5 mg tablet 5 mg PO Q8H PRN (Reason: severe pain (scale score 7-10)) Qty: 5 0RF Rx Instructions: Partial Fill upon patient request. No Action omeprazole 40 mg capsule,delayed release(DR/EC) 40 mg PO DAILY Qty: 90 8RF furosemide 40 mg tablet 40 mg PO QAM Qty: 90 8RF warfarin 7.5 mg tablet 7.5 mg PO DAILY Qty: 90 8RF Protocol: Dose Management Condition: Friday (Week One) Dose/Route: 11.25 mg Instruction: 1.5 x 7.5 mg tablets Condition: Friday Dose/Route: 7.5 mg Instruction: 1 x 7.5 mg tablet Condition: Friday Dose/Route: 15 mg Instruction: 2 x 7.5 mg tablets Condition: Friday Dose/Route: 11.25 mg Instruction: 1.5 x 7.5 mg tablets Condition: Dose/Route: 7.5 mg Instruction: 1 x 7.5 mg tablet Condition: Friday Dose/Route: 11.25 mg Instruction: 1.5 x 7.5 mg tablets Condition: Friday Dose/Route: 7.5 mg Instruction: 1 x 7.5 mg tablet Condition: Friday (Week Two) Dose/Route: 11.25 mg Instruction: 1.5 x 7.5 mg tablets Condition: Friday Dose/Route: 7.5 mg Instruction: 1 x 7.5 mg tablet Condition: Friday Dose/Route: 11.25 mg Instruction: 1.5 x 7.5 mg tablets Condition: Friday Dose/Route: 7.5 mg Instruction: 1 x 7.5 mg tablet Condition: Dose/Route: 11.25 mg Instruction: 1.5 x 7.5 mg tablets Condition: Friday Dose/Route: 7.5 mg Instruction: 1 x 7.5 mg tablet Condition: Friday Dose/Route: 11.25 mg Instruction: 1.5 x 7.5 mg tablets Protocol Text: Adjustment Start Date: Friday03/26/22 INR Value: 1.5 INR Date: 03/26/22 Recheck Date: 03/29/22 Additional Instructions: avoid greens today and tomorrow metformin 1,000 mg tablet 1,000 mg PO BID Qty: 180 8RF fluticasone propionate 50 mcg/actuation spray,suspension 1 spray intranasal DAILY Qty: 16 8RF glimepiride 1 mg tablet 1 mg PO DAILY Qty: 90 0RF albuterol sulfate 90 mcg/actuation HFA aerosol inhaler inhalation metoprolol succinate 50 mg tablet extended release 24 hr 50 mg PO DAILY albuterol sulfate 2.5 mg /3 mL (0.083 %) solution for nebulization inhalation Q6H PRN (Reason: wheezing) oxybutynin chloride 10 mg tablet extended release 24hr 20 mg PO QAM valsartan 40 mg tablet 40 mg PO BID aspirin [Adult Low Dose Aspirin] 81 mg tablet,delayed release (DR/EC) 81 mg PO DAILY docusate sodium [Stool Softener] 100 mg capsule 100 mg PO DAILY polyethylene glycol 3350 [Miralax] 17 gram/dose powder 17 g PO DAILY (DME) blood-glucose meter [FreeStyle [place] Lite] Kit See Rx Instructions .ROUTE DAILY Qty: 1 Rx Instructions: As directed (DME) lancets [FreeStyle Lancets] 28 gauge misc See Rx Instructions .ROUTE DAILY Qty: 100 Rx Instructions: As directed (DME) FreeStyle Lite Strips Strip See Rx Instructions .ROUTE DAILY Qty: 10 Rx Instructions: As directed Trelegy Ellipta 100-62.5-25 mcg blister with device 1 ea inhalation DAILY triamcinolone acetonide 0.1 % cream 1 appl topical BID-TID hydrocortisone 2.5 % cream topical
--- NOTE | 2022-03-28 11:32 | PC.NURSE ---
Addendum entered by Tam Burdick 03/28/22 11:56: Patient refused flomax Original Note: Provider ordered to give tamsulosin despite on allergy list
[2022-03-28 11:34] VITALS: RESP 18
[2022-03-28] MEDS: Morphine Sulfate 4 MG/ML CARTRIDGE IVPUSH (11:34)
[2022-03-28] MEDS: ondansetron HCL 4 MG/2 ML VIAL IVPUSH (11:34)
[2022-03-28] MEDS: dexAMETHasone sod phosphate 10 MG/ML VIAL 8 MG IVPUSH (11:34)
[2022-03-28] MEDS: 0.9 % Sodium Chloride 1,000 ML 999 ML IVCONT (11:35)
[2022-03-28 11:36] LABS: INTERNATIONAL NORM RATIO 2.2 (0.9-1.1); Prothrombin Time 25.8 SEC (10.0-13.1)
[2022-03-28 11:45] LABS: Anion Gap 17 (12-20); Blood Urea Nitrogen 31 mg/dL (9-16); Calcium 8.7 mg/dL (8.4-10.2); Carbon Dioxide 25 mmol/L (22-29); Chloride 104 mmol/L (96-108); Creatinine Clr Calc Pharmacy 53.2; Estimated Glomerular Filt Rate 43; Glucose Random 116 mg/dL (60-115); Potassium 4.3 mmol/L (3.3-5.1); Sodium 142 mmol/L (135-145)
--- NOTE | 2022-03-28 11:56 | PC.NURSE ---
Patient sating in mid 80s. Provider made aware. Ordered to put on 2L Nasal cannula.
[2022-03-28 12:27] LABS: B Type Natriuretic Peptide 375 pg/mL (<100)
[2022-03-28 14:15] VITALS: BP 135/80; PULSE 78; RESP 18; TEMP 36.8; O2SAT 89
[2022-03-28 14:39] LABS: Appearance Urine Clear; Color Urine Yellow; Glucose Urine UA Negative (Negative); Leukocyte Esterase Urine Negative (Negative); Nitrite Urine Negative (Negative); PH 5.5 (5.0-8.0); Urine Blood Moderate (2+) (Negative); Urine Ketones Negative (Negative); Urine Protein Negative (Neg-Trace)
[2022-03-28 15:06] LABS: Bacteria Urine None Seen (None Seen); Squamous Epithelial Cell Urine 0-2 /HPF (0-2); WBC Urine 0-5 /HPF (0-5)
[2022-03-28 16:21] VITALS: O2SAT 90
== END 2022-03-28 16:54 | disposition home or self-care (01) ==
PROVIDERS: Physician Assistant; Emergency Provider Emergency Medicine Emergency Medical Services; PCP Internal Medicine
DX: N17.9 Acute kidney failure, unspecified (principal); N20.0 Calculus of kidney; R10.32 Left lower quadrant pain; R09.02 Hypoxemia; I11.0 Hypertensive heart disease with heart failure; I50.9 Heart failure, unspecified; E66.01 Morbid (severe) obesity due to excess calories; Z68.35 Body mass index [BMI] 35.0-35.9, adult; Z86.711 Personal history of pulmonary embolism; Z79.01 Long term (current) use of anticoagulants
CPT/HCPCS: 36415; 71046; 76775; 80048; 81001; 83880; 85025; 85610; 96361; 96374; 96375; 99283; 99284; J1100; J2270; J2405

== ENCOUNTER → 2022-03-29 15:20 | Outpatient (BNVA) | payer MEDICARE, OTHER, SELFPAY | PROVIDERS: PCP Internal Medicine; Visit Provider Internal Medicine | DX: I26.99 Other pulmonary embolism without acute cor pulmonale (principal); Z51.81 Encounter for therapeutic drug level monitoring; Z79.01 Long term (current) use of anticoagulants | CPT/HCPCS: 85610; 99211 ==

== ENCOUNTER → 2022-04-05 15:20 | Outpatient (BNVA) | payer MEDICARE, OTHER, SELFPAY | PROVIDERS: PCP Internal Medicine; Visit Provider Internal Medicine | DX: I26.99 Other pulmonary embolism without acute cor pulmonale (principal); Z79.01 Long term (current) use of anticoagulants; Z51.81 Encounter for therapeutic drug level monitoring | CPT/HCPCS: 85610; 99211 ==

== ENCOUNTER → 2022-04-12 15:26 | Outpatient (BNVA) | payer MEDICARE, OTHER, SELFPAY | PROVIDERS: PCP Internal Medicine; Visit Provider Internal Medicine | DX: I26.99 Other pulmonary embolism without acute cor pulmonale (principal); Z79.01 Long term (current) use of anticoagulants; Z51.81 Encounter for therapeutic drug level monitoring | CPT/HCPCS: 85610; 99211 ==

== ENCOUNTER → 2022-04-19 15:26 | Outpatient (BNVA) | payer MEDICARE, OTHER, SELFPAY | PROVIDERS: PCP Internal Medicine; Visit Provider Internal Medicine | DX: I26.99 Other pulmonary embolism without acute cor pulmonale (principal); Z79.01 Long term (current) use of anticoagulants; Z51.81 Encounter for therapeutic drug level monitoring | CPT/HCPCS: 85610; 99211 ==

== ENCOUNTER 2022-04-20 07:19 | Outpatient (REF) | payer MEDICARE, OTHER, SELFPAY ==
[2022-04-20 08:35] LABS: Estimated Average Glucose 123 mg/dL; Hemoglobin A1c % 5.9 %
[2022-04-20 08:39] LABS: Alanine Aminotransferase 18 U/L (0-40); Albumin Level 4.1 g/dL (3.5-5.0); Alkaline Phosphatase 86 U/L (39-117); Anion Gap 16 (12-20); Aspartate Amino Transferase 15 U/L (5-37); Bilirubin Total 0.5 mg/dL (0.0-1.0); Blood Urea Nitrogen 28 mg/dL (9-16); Calcium 9.5 mg/dL (8.4-10.2); Carbon Dioxide 27 mmol/L (22-29); Chloride 105 mmol/L (96-108); Cholesterol 191 mg/dL; Estimated Glomerular Filt Rate > 60; Glucose Fasting 110 mg/dL (60-99); HDL Cholesterol 42 mg/dL; LDL Cholesterol Calculated 136 mg/dl; Potassium 4.5 mmol/L (3.3-5.1); Sodium 143 mmol/L (135-145); Total Protein 7.1 g/dL (6.5-8.0); Triglycerides 65 mg/dL
== END 2022-04-20 07:20 | disposition home or self-care (01) ==
LOC: HO.LAB 07:19
PROVIDERS: PCP Internal Medicine; Visit Provider Internal Medicine
DX: I10 Essential (primary) hypertension (principal); E78.5 Hyperlipidemia, unspecified; E11.9 Type 2 diabetes mellitus without complications
CPT/HCPCS: 36415; 80053; 80061; 83036

== ENCOUNTER → 2022-05-03 15:19 | Outpatient (BNVA) | payer MEDICARE, OTHER, SELFPAY | PROVIDERS: PCP Internal Medicine; Visit Provider Internal Medicine | DX: I26.99 Other pulmonary embolism without acute cor pulmonale (principal); Z79.01 Long term (current) use of anticoagulants; Z51.81 Encounter for therapeutic drug level monitoring | CPT/HCPCS: 85610; 99211 ==

== ENCOUNTER → 2022-05-17 15:17 | Outpatient (BNVA) | payer MEDICARE, OTHER, SELFPAY | PROVIDERS: PCP Internal Medicine; Visit Provider Internal Medicine | DX: I26.99 Other pulmonary embolism without acute cor pulmonale (principal); Z79.01 Long term (current) use of anticoagulants; Z51.81 Encounter for therapeutic drug level monitoring | CPT/HCPCS: 85610; 99211 ==

== ENCOUNTER → 2022-05-31 15:17 | Outpatient (BNVA) | payer MEDICARE, OTHER, SELFPAY | PROVIDERS: PCP Internal Medicine; Visit Provider Internal Medicine | DX: I26.99 Other pulmonary embolism without acute cor pulmonale (principal); Z79.01 Long term (current) use of anticoagulants; Z51.81 Encounter for therapeutic drug level monitoring | CPT/HCPCS: 85610; 99211 ==

== ENCOUNTER → 2022-06-21 15:26 | Outpatient (BNVA) | payer MEDICARE, OTHER, SELFPAY | PROVIDERS: PCP Internal Medicine; Visit Provider Internal Medicine | DX: I26.99 Other pulmonary embolism without acute cor pulmonale (principal); Z79.01 Long term (current) use of anticoagulants; Z51.81 Encounter for therapeutic drug level monitoring | CPT/HCPCS: 85610; 99211 ==

== ENCOUNTER → 2022-06-26 09:14 | Outpatient (BNVA) | payer MEDICARE, OTHER, SELFPAY | PROVIDERS: PCP Internal Medicine; Visit Provider Internal Medicine | DX: I26.99 Other pulmonary embolism without acute cor pulmonale (principal); Z79.01 Long term (current) use of anticoagulants; Z51.81 Encounter for therapeutic drug level monitoring | CPT/HCPCS: 85610; 99211 ==

== ENCOUNTER → 2022-07-04 08:48 | Outpatient (BNVA) | payer MEDICARE, OTHER, SELFPAY | PROVIDERS: PCP Internal Medicine; Visit Provider Internal Medicine | DX: I26.99 Other pulmonary embolism without acute cor pulmonale (principal); Z79.01 Long term (current) use of anticoagulants; Z51.81 Encounter for therapeutic drug level monitoring | CPT/HCPCS: 85610; 99211 ==

== ENCOUNTER → 2022-07-19 08:50 | Outpatient (BNVA) | payer MEDICARE, OTHER, SELFPAY | PROVIDERS: PCP Internal Medicine; Visit Provider Internal Medicine | DX: I26.99 Other pulmonary embolism without acute cor pulmonale (principal); Z79.01 Long term (current) use of anticoagulants; Z51.81 Encounter for therapeutic drug level monitoring | CPT/HCPCS: 85610; 99211 ==

== ENCOUNTER → 2022-08-02 09:02 | Outpatient (BNVA) | payer MEDICARE, OTHER, SELFPAY | PROVIDERS: PCP Internal Medicine; Visit Provider Internal Medicine | DX: I26.99 Other pulmonary embolism without acute cor pulmonale (principal); Z79.01 Long term (current) use of anticoagulants; Z51.81 Encounter for therapeutic drug level monitoring | CPT/HCPCS: 85610; 99211 ==

== ENCOUNTER → 2022-08-16 08:48 | Outpatient (BNVA) | payer MEDICARE, OTHER, SELFPAY | PROVIDERS: PCP Internal Medicine; Visit Provider Internal Medicine | DX: I26.99 Other pulmonary embolism without acute cor pulmonale (principal); Z79.01 Long term (current) use of anticoagulants; Z51.81 Encounter for therapeutic drug level monitoring | CPT/HCPCS: 85610; 99211 ==

== ENCOUNTER → 2022-09-06 08:48 | Outpatient (BNVA) | payer MEDICARE, OTHER, SELFPAY | PROVIDERS: PCP Internal Medicine; Visit Provider Internal Medicine | DX: I26.99 Other pulmonary embolism without acute cor pulmonale (principal); Z79.01 Long term (current) use of anticoagulants; Z51.81 Encounter for therapeutic drug level monitoring | CPT/HCPCS: 85610; 99211 ==

== ENCOUNTER → 2022-09-27 08:44 | Outpatient (BNVA) | payer MEDICARE, OTHER, SELFPAY | PROVIDERS: PCP Internal Medicine; Visit Provider Internal Medicine | DX: I26.99 Other pulmonary embolism without acute cor pulmonale (principal); Z79.01 Long term (current) use of anticoagulants; Z51.81 Encounter for therapeutic drug level monitoring | CPT/HCPCS: 85610; 99211 ==

== ENCOUNTER 2022-10-02 06:45 | Outpatient (REF) | payer MEDICARE, OTHER, SELFPAY ==
[2022-10-02 06:52] LABS: MANUAL DIFF FLAG NO
[2022-10-02 07:35] LABS: Basophils Absolute Auto 0.1 X10*3/uL (0.0-0.2); Basophils Percent Auto 1.1 % (0-2); Eosinophils Absolute Auto 0.3 X10*3/uL (0.0-0.4); Eosinophils Percent Auto 2.8 % (0-4); Hematocrit 47.8 % (42.0-52.0); Hemoglobin 15.5 g/dl (14.0-18.0); Imm Gran Abs Auto 0.02 X10*3/uL (0.00-0.03); Imm Gran Pct Auto 0.2 % (0.0-0.4); Lymphocytes Absolute Auto 4.5 X10*3/uL (1.2-4.9); Lymphocytes Percent Auto 44.9 % (20-40); Mean Corpuscular HGB Conc 32.4 g/dl (31.0-36.0); Mean Corpuscular Hemoglobin 29.2 pg (27.0-33.0); Mean Platelet Volume 9.5 fL (9.4-12.4); Monocytes Absolute Auto 1.1 X10*3/uL (0.1-1.2); Monocytes Percent Auto 11.2 % (2-11); Neutrophils Percent Auto 39.8 % (45-73); Platelet Count 399 X10*3/uL (160-400); Red Blood Count 5.31 X10*6/uL (4.60-5.80); Red Cell Distribution Width 15.9 % (11.0-16.0); White Blood Count 10.1 X10*3/uL (4.8-10.8)
[2022-10-02 07:46] LABS: Estimated Average Glucose 128 mg/dL; Hemoglobin A1c % 6.1 %
[2022-10-02 08:11] LABS: Alanine Aminotransferase 28 U/L (0-40); Alkaline Phosphatase 99 U/L (39-117); Anion Gap 13 (12-20); Aspartate Amino Transferase 22 U/L (5-37); Bilirubin Total 0.8 mg/dL (0.0-1.0); Blood Urea Nitrogen 32 mg/dL (9-16); Calcium 9.3 mg/dL (8.4-10.2); Carbon Dioxide 26 mmol/L (22-29); Chloride 111 mmol/L (96-108); Cholesterol 190 mg/dL; Estimated Glomerular Filt Rate > 60; Glucose Fasting 104 mg/dL (60-99); HDL Cholesterol 42 mg/dL; LDL Cholesterol Calculated 136 mg/dl; Potassium 4.5 mmol/L (3.3-5.1); Sodium 145 mmol/L (135-145); Triglycerides 60 mg/dL
[2022-10-02 08:39] LABS: Folate 15.8 ng/mL (> or = 4.0); Vitamin B12 779 pg/mL (200-900)
== END 2022-10-02 06:46 | disposition home or self-care (01) ==
LOC: HO.LAB 06:45
PROVIDERS: PCP Internal Medicine; Visit Provider Internal Medicine
DX: I10 Essential (primary) hypertension (principal); E11.9 Type 2 diabetes mellitus without complications; E78.5 Hyperlipidemia, unspecified; E53.8 Deficiency of other specified B group vitamins; Z13.0 Encounter for screening for diseases of the blood and blood-forming organs and certain disorders involving the immune mechanism
CPT/HCPCS: 36415; 80053; 80061; 82607; 82746; 83036; 85025

== ENCOUNTER → 2022-10-11 15:25 | Outpatient (BNVA) | payer MEDICARE, OTHER, SELFPAY | PROVIDERS: PCP Internal Medicine; Visit Provider Internal Medicine | DX: I26.99 Other pulmonary embolism without acute cor pulmonale (principal); Z79.01 Long term (current) use of anticoagulants; Z51.81 Encounter for therapeutic drug level monitoring | CPT/HCPCS: 85610; 99211 ==

== ENCOUNTER → 2022-11-06 15:17 | Outpatient (BNVA) | payer MEDICARE, OTHER, SELFPAY | PROVIDERS: PCP Internal Medicine; Visit Provider Internal Medicine | DX: I26.99 Other pulmonary embolism without acute cor pulmonale (principal); Z79.01 Long term (current) use of anticoagulants; Z51.81 Encounter for therapeutic drug level monitoring | CPT/HCPCS: 85610; 99211 ==

== ENCOUNTER → 2022-11-15 16:00 | Outpatient (BNVA) | payer MEDICARE, OTHER, SELFPAY | PROVIDERS: PCP Internal Medicine; Visit Provider Internal Medicine | DX: I26.99 Other pulmonary embolism without acute cor pulmonale (principal); Z79.01 Long term (current) use of anticoagulants; Z51.81 Encounter for therapeutic drug level monitoring | CPT/HCPCS: 85610; 99212 ==

== ENCOUNTER 2022-11-18 09:07 | Outpatient (REF) | payer MEDICARE, OTHER, SELFPAY ==
[2022-11-18 10:46] LABS: Estimated Average Glucose 123 mg/dL; Hemoglobin A1c % 5.9 %
[2022-11-18 11:06] LABS: Cholesterol 202 mg/dL; Glucose Fasting 102 mg/dL (60-99); HDL Cholesterol 42 mg/dL; LDL Cholesterol Calculated 141 mg/dl; Triglycerides 96 mg/dL
== END 2022-11-18 09:08 | disposition home or self-care (01) ==
LOC: HO.LAB 09:07
PROVIDERS: PCP Internal Medicine; Visit Provider Internal Medicine
DX: E78.5 Hyperlipidemia, unspecified (principal); R73.9 Hyperglycemia, unspecified
CPT/HCPCS: 36415; 80061; 82947; 83036

== ENCOUNTER → 2022-11-20 15:21 | Outpatient (BNVA) | payer MEDICARE, OTHER, SELFPAY | PROVIDERS: PCP Internal Medicine; Visit Provider Internal Medicine | DX: I26.99 Other pulmonary embolism without acute cor pulmonale (principal); Z79.01 Long term (current) use of anticoagulants; Z51.81 Encounter for therapeutic drug level monitoring | CPT/HCPCS: 85610; 99211 ==

== ENCOUNTER → 2022-11-25 15:18 | Outpatient (BNVA) | payer MEDICARE, OTHER, SELFPAY | PROVIDERS: PCP Internal Medicine; Visit Provider Internal Medicine | DX: I26.99 Other pulmonary embolism without acute cor pulmonale (principal); Z79.01 Long term (current) use of anticoagulants; Z51.81 Encounter for therapeutic drug level monitoring | CPT/HCPCS: 85610; 99211 ==

== ENCOUNTER → 2022-11-29 15:25 | Outpatient (BNVA) | payer MEDICARE, OTHER, SELFPAY | PROVIDERS: PCP Internal Medicine; Visit Provider Internal Medicine | DX: I26.99 Other pulmonary embolism without acute cor pulmonale (principal); Z79.01 Long term (current) use of anticoagulants; Z51.81 Encounter for therapeutic drug level monitoring | CPT/HCPCS: 85610; 99211 ==

== ENCOUNTER → 2022-12-06 15:21 | Outpatient (BNVA) | payer MEDICARE, OTHER, SELFPAY | PROVIDERS: PCP Internal Medicine; Visit Provider Internal Medicine | DX: I26.99 Other pulmonary embolism without acute cor pulmonale (principal); Z79.01 Long term (current) use of anticoagulants; Z51.81 Encounter for therapeutic drug level monitoring | CPT/HCPCS: 85610; 99211 ==

== ENCOUNTER → 2022-12-20 15:29 | Outpatient (BNVA) | payer MEDICARE, OTHER, SELFPAY | PROVIDERS: PCP Internal Medicine; Visit Provider Internal Medicine | DX: I26.99 Other pulmonary embolism without acute cor pulmonale (principal); Z79.01 Long term (current) use of anticoagulants; Z51.81 Encounter for therapeutic drug level monitoring | CPT/HCPCS: 85610; 99211 ==

== ENCOUNTER → 2022-12-26 15:17 | Outpatient (BNVA) | payer MEDICARE, OTHER, SELFPAY | PROVIDERS: PCP Internal Medicine; Visit Provider Internal Medicine | DX: I26.99 Other pulmonary embolism without acute cor pulmonale (principal); Z79.01 Long term (current) use of anticoagulants; Z51.81 Encounter for therapeutic drug level monitoring | CPT/HCPCS: 85610; 99211 ==

== ENCOUNTER → 2023-01-07 15:20 | Outpatient (BNVA) | payer MEDICARE, OTHER, SELFPAY | PROVIDERS: PCP Internal Medicine; Visit Provider Internal Medicine | DX: I26.99 Other pulmonary embolism without acute cor pulmonale (principal); Z79.01 Long term (current) use of anticoagulants; Z51.81 Encounter for therapeutic drug level monitoring | CPT/HCPCS: 85610; 99211 ==

== ENCOUNTER → 2023-01-16 15:18 | Outpatient (BNVA) | payer MEDICARE, OTHER, SELFPAY | PROVIDERS: PCP Internal Medicine; Visit Provider Internal Medicine | DX: I26.99 Other pulmonary embolism without acute cor pulmonale (principal); Z79.01 Long term (current) use of anticoagulants; Z51.81 Encounter for therapeutic drug level monitoring | CPT/HCPCS: 85610; 99211 ==

== ENCOUNTER → 2023-01-22 15:20 | Outpatient (BNVA) | payer MEDICARE, OTHER, SELFPAY | PROVIDERS: PCP Internal Medicine; Visit Provider Internal Medicine | DX: I26.99 Other pulmonary embolism without acute cor pulmonale (principal); Z79.01 Long term (current) use of anticoagulants; Z51.81 Encounter for therapeutic drug level monitoring | CPT/HCPCS: 85610; 99211 ==

== ENCOUNTER → 2023-01-29 15:18 | Outpatient (BNVA) | payer MEDICARE, OTHER, SELFPAY | PROVIDERS: PCP Internal Medicine; Visit Provider Internal Medicine | DX: I26.99 Other pulmonary embolism without acute cor pulmonale (principal); Z79.01 Long term (current) use of anticoagulants; Z51.81 Encounter for therapeutic drug level monitoring | CPT/HCPCS: 85610; 99211 ==

== ENCOUNTER 2023-02-10 06:24 | Outpatient (REF) | payer MEDICARE, OTHER, SELFPAY | END 2023-02-10 06:25 | disposition home or self-care (01) | LOC: HO.LAB 06:24 | PROVIDERS: PCP Internal Medicine; Visit Provider Internal Medicine | DX: N28.9 Disorder of kidney and ureter, unspecified (principal); R73.9 Hyperglycemia, unspecified; E78.5 Hyperlipidemia, unspecified | CPT/HCPCS: 36415; 80053; 80061; 83036 ==

== ENCOUNTER 2023-02-11 15:20 | Outpatient (AMB) | payer MEDICARE, OTHER, SELFPAY ==
--- NOTE | 2023-02-11 15:26 | MHC.OFFVISCO ---
Intake Intake Visit Reasons: Anticoagulation Allergies nicotine Allergy (Intermediate, Verified 02/11/23 15:22) Rash fish derived [FISH] Allergy (Unknown, Verified 02/11/23 15:22) ANGIOEDEMA tamsulosin [Flomax] Adverse Reaction (Intermediate, Verified 02/11/23 15:22) nightmares Medication List - Last Reconciled 02/11/23 by Olimpia Enriquez RN albuterol sulfate mg inhalation Q6H PRN albuterol sulfate 90 mcg/actuation inhalation blood sugar diagnostic (FreeStyle Lite Strips) daily blood-glucose meter (FreeStyle [place] Lite kit) As directed [custom heat molded multidensity innersoles wear 3 pairs of custom heat molded multidensity innersoles wear] docusate sodium (Stool Softener) 100 mg PO DAILY [extra depth orthopedic shoes with 3 pairs of custom heat molded multidensity innersoles wear] fluticasone propionate 50 mcg/actuation 1 spray intranasal DAILY kvnsdpohrfe-axiddtltt-thcnfhkz 100-62.5-25 mcg (Trelegy Ellipta) 1 ea inhalation DAILY furosemide 40 mg PO QAM glimepiride 1 mg PO DAILY hydrocortisone 2.5% appl topical lancets (FreeStyle Lancets) test daily metformin 1,000 mg PO BID metoprolol succinate ER 50 mg PO DAILY omeprazole 40 mg PO DAILY oxybutynin chloride ER 20 mg PO QAM polyethylene glycol 3350 (Miralax) 17 grams PO DAILY triamcinolone acetonide 0.1% 1 appl topical BID-TID valsartan 40 mg PO BID vitamins A,C,U-iqqv-nfdrjo 2,148 mcg-113 mg-45 mg-17.4mg (PreserVision AREDS) 1 tab PO BID warfarin 7.5 mg See Protocol PO DAILY MDD 1.5 tablets daily Nursing Note INR 1.8- out of therapeutic range- denies missed dose Medications and supplements reviewed Patient status: no c.o Medications or supplements: no changes Diet: appetite is fair Denies any signs and symptoms of bleeding or clotting or unusual bruising Bleeding, bruising, clotting discussed Nutritional guidance given: no greens for 2 days, eat reds to raise Dose: increase tomm dose to 11.25 then cont reg 7.5mg x 2, 11.25mg x 5 F/U INR Date : 2 weeks?? Patient verbalizing understanding of instructions given. Anti-Coag Initial Assessment Social Hx Patient Tobacco Use Status: Former Tobacco user Tobacco use type: Cigarette alcohol intake: current Alcohol intake frequency: holidays/special occasions only Cardiovascular Hx: HTN, CHF and Cardiomyopathy Lung Disease HX: Asthma, COPD and DVT/PE Endocrine Hx: Diabetes Blood Disorder Hx: Other GI Hx: Other Cancer HX: No Coding Level of Care Code Est Patient Level 1 Diagnoses Current use of anticoagulant therapy Z79.01 Results AMB INR Fingerstick AMB INR Fingerstick 1.8 Last Edit by Olimpia Enriquez RN on 02/11/23 15:28 Assessment & Plan Assessment & Plan (1) Current use of anticoagulant therapy: Code(s): Z79.01 - senior living (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
[2023-02-11 15:40] LABS: Prothrombin Time Whole Bld POC 21.7 sec (11.1-13.5); ~PT, ~INR - Anti Coag Clinic 1.8 (0.9-1.1)
== END 2023-02-11 15:35 | disposition home or self-care (01) ==
LOC: HO.ACS 15:20
PROVIDERS: PCP Internal Medicine; Visit Provider Internal Medicine
DX: Z79.01 Long term (current) use of anticoagulants (principal)

== ENCOUNTER → 2023-02-11 15:20 | Outpatient (BNVA) | payer MEDICARE, OTHER, SELFPAY | PROVIDERS: PCP Internal Medicine; Visit Provider Internal Medicine | DX: I26.99 Other pulmonary embolism without acute cor pulmonale (principal); Z79.01 Long term (current) use of anticoagulants; Z51.81 Encounter for therapeutic drug level monitoring | CPT/HCPCS: 85610; 99211 ==

== ENCOUNTER 2023-02-25 15:19 | Outpatient (AMB) | payer MEDICARE, OTHER, SELFPAY ==
--- NOTE | 2023-02-25 15:26 | MHC.OFFVISCO ---
Intake Intake Visit Reasons: Anticoagulation Allergies nicotine Allergy (Intermediate, Verified 02/25/23 15:22) Rash fish derived [FISH] Allergy (Unknown, Verified 02/25/23 15:22) ANGIOEDEMA tamsulosin [Flomax] Adverse Reaction (Intermediate, Verified 02/25/23 15:22) nightmares Medication List - Last Reconciled 02/25/23 by Olimpia Enriquez RN albuterol sulfate mg inhalation Q6H PRN albuterol sulfate 90 mcg/actuation inhalation blood sugar diagnostic (FreeStyle Lite Strips) daily blood-glucose meter (FreeStyle [place] Lite kit) As directed [custom heat molded multidensity innersoles wear 3 pairs of custom heat molded multidensity innersoles wear] docusate sodium (Stool Softener) 100 mg PO DAILY [extra depth orthopedic shoes with 3 pairs of custom heat molded multidensity innersoles wear] fluticasone propionate 50 mcg/actuation 1 spray intranasal DAILY buogswvcczk-ffnfsbwst-bldihgaw 100-62.5-25 mcg (Trelegy Ellipta) 1 ea inhalation DAILY furosemide 40 mg PO QAM glimepiride 1 mg PO DAILY hydrocortisone 2.5% appl topical lancets (FreeStyle Lancets) test daily metformin 1,000 mg PO BID metoprolol succinate ER 50 mg PO DAILY omeprazole 40 mg PO DAILY oxybutynin chloride ER 20 mg PO QAM polyethylene glycol 3350 (Miralax) 17 grams PO DAILY triamcinolone acetonide 0.1% 1 appl topical BID-TID valsartan 40 mg PO BID vitamins A,C,F-trae-jidgie 2,148 mcg-113 mg-45 mg-17.4mg (PreserVision AREDS) 1 tab PO BID warfarin 7.5 mg See Protocol PO DAILY MDD 1.5 tablets daily Nursing Note INR: 2.4- in therapeutic range Medications and supplements reviewed- no changes No changes in health, diet, medications, or supplements, Denies any signs and symptoms of bleeding or bruising or clotting. Bleeding, bruising, clotting discussed Nutritional guidance given Dose: 7.5mg x 2, 11.25mg x 5 F/U INR: 2 weeks Patient verbalizes understanding of instructions given Anti-Coag Initial Assessment Social Hx Patient Tobacco Use Status: Former Tobacco user Tobacco use type: Cigarette alcohol intake: current Alcohol intake frequency: holidays/special occasions only Cardiovascular Hx: HTN, CHF and Cardiomyopathy Lung Disease HX: Asthma, COPD and DVT/PE Endocrine Hx: Diabetes Blood Disorder Hx: Other GI Hx: Other Cancer HX: No Coding Level of Care Code Est Patient Level 1 Diagnoses Current use of anticoagulant therapy Z79.01 Results AMB INR Fingerstick AMB INR Fingerstick 2.4 Last Edit by Olimpia Enriquez RN on 02/25/23 15:28 Assessment & Plan Assessment & Plan (1) Current use of anticoagulant therapy: Code(s): Z79.01 - [facility] (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
[2023-02-25 15:28] LABS: Prothrombin Time Whole Bld POC 28.7 sec (11.1-13.5); ~PT, ~INR - Anti Coag Clinic 2.4 (0.9-1.1)
== END 2023-02-25 15:32 | disposition home or self-care (01) ==
LOC: HO.ACS 15:19
PROVIDERS: PCP Internal Medicine; Visit Provider Internal Medicine
DX: Z79.01 Long term (current) use of anticoagulants (principal)

== ENCOUNTER → 2023-02-25 15:19 | Outpatient (BNVA) | payer MEDICARE, OTHER, SELFPAY | PROVIDERS: PCP Internal Medicine; Visit Provider Internal Medicine | DX: I26.99 Other pulmonary embolism without acute cor pulmonale (principal); Z79.01 Long term (current) use of anticoagulants; Z51.81 Encounter for therapeutic drug level monitoring | CPT/HCPCS: 85610; 99211 ==

== ENCOUNTER 2023-03-11 15:19 | Outpatient (AMB) | payer MEDICARE, OTHER, SELFPAY ==
--- NOTE | 2023-03-11 15:25 | MHC.OFFVISCO ---
Intake Intake Visit Reasons: Anticoagulation Allergies nicotine Allergy (Intermediate, Verified 03/11/23 15:20) Rash fish derived [FISH] Allergy (Unknown, Verified 03/11/23 15:20) ANGIOEDEMA tamsulosin [Flomax] Adverse Reaction (Intermediate, Verified 03/11/23 15:20) nightmares Medication List - Last Reconciled 03/11/23 by Olimpia Enriquez RN albuterol sulfate mg inhalation Q6H PRN albuterol sulfate 90 mcg/actuation inhalation blood sugar diagnostic (FreeStyle Lite Strips) daily blood-glucose meter (FreeStyle [place] Lite kit) As directed [custom heat molded multidensity innersoles wear 3 pairs of custom heat molded multidensity innersoles wear] docusate sodium (Stool Softener) 100 mg PO DAILY [extra depth orthopedic shoes with 3 pairs of custom heat molded multidensity innersoles wear] fluticasone propionate 50 mcg/actuation 1 spray intranasal DAILY posydeapngj-hzopvwsiv-ezrxgxfg 100-62.5-25 mcg (Trelegy Ellipta) 1 ea inhalation DAILY furosemide 40 mg PO QAM glimepiride 1 mg PO DAILY hydrocortisone 2.5% appl topical lancets (FreeStyle Lancets) test daily metformin 1,000 mg PO BID metoprolol succinate ER 50 mg PO DAILY omeprazole 40 mg PO DAILY oxybutynin chloride ER 20 mg PO QAM polyethylene glycol 3350 (Miralax) 17 grams PO DAILY triamcinolone acetonide 0.1% 1 appl topical BID-TID valsartan 40 mg PO BID vitamins A,C,I-gree-okxfac 2,148 mcg-113 mg-45 mg-17.4mg (PreserVision AREDS) 1 tab PO BID warfarin 7.5 mg See Protocol PO DAILY MDD 1.5 tablets daily Nursing Note INR: 2.4- in therapeutic range Medications and supplements reviewed No changes in health, diet, medications, or supplements, Denies any signs and symptoms of bleeding or bruising or clotting. Bleeding, bruising, clotting discussed- occ small bruising on arms Nutritional guidance given Dose: 7.5mg x 2, 11.25mg x 5 F/U INR: 3 weeks Patient verbalizes understanding of instructions given Anti-Coag Initial Assessment Social Hx Patient Tobacco Use Status: Former Tobacco user Tobacco use type: Cigarette alcohol intake: current Alcohol intake frequency: holidays/special occasions only Cardiovascular Hx: HTN, CHF and Cardiomyopathy Lung Disease HX: Asthma, COPD and DVT/PE Endocrine Hx: Diabetes Blood Disorder Hx: Other GI Hx: Other Cancer HX: No Coding Level of Care Code Est Patient Level 1 Diagnoses Current use of anticoagulant therapy Z79.01 Assessment & Plan Assessment & Plan (1) Current use of anticoagulant therapy: Code(s): Z79.01 - skilled nursing (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
[2023-03-11 15:26] LABS: Prothrombin Time Whole Bld POC 29.2 sec (11.1-13.5); ~PT, ~INR - Anti Coag Clinic 2.4 (0.9-1.1)
== END 2023-03-11 15:42 | disposition home or self-care (01) ==
LOC: HO.ACS 15:19
PROVIDERS: PCP Internal Medicine; Visit Provider Internal Medicine
DX: Z79.01 Long term (current) use of anticoagulants (principal)

== ENCOUNTER → 2023-03-11 15:19 | Outpatient (BNVA) | payer MEDICARE, OTHER, SELFPAY | PROVIDERS: PCP Internal Medicine; Visit Provider Internal Medicine | DX: I26.99 Other pulmonary embolism without acute cor pulmonale (principal); Z79.01 Long term (current) use of anticoagulants; Z51.81 Encounter for therapeutic drug level monitoring | CPT/HCPCS: 85610; 99211 ==

== ENCOUNTER 2023-04-01 15:15 | Outpatient (AMB) | payer MEDICARE, OTHER, SELFPAY ==
--- NOTE | 2023-04-01 15:20 | MHC.OFFVISCO ---
Intake Intake Visit Reasons: Anticoagulation Allergies nicotine Allergy (Intermediate, Verified 04/01/23 15:16) Rash fish derived [FISH] Allergy (Unknown, Verified 04/01/23 15:16) ANGIOEDEMA tamsulosin [Flomax] Adverse Reaction (Intermediate, Verified 04/01/23 15:16) nightmares Medication List - Last Reconciled 04/01/23 by Olimpia Enriquez RN albuterol sulfate mg inhalation Q6H PRN albuterol sulfate 90 mcg/actuation inhalation blood sugar diagnostic (FreeStyle Lite Strips) daily blood-glucose meter (FreeStyle [place] Lite kit) As directed [custom heat molded multidensity innersoles wear 3 pairs of custom heat molded multidensity innersoles wear] docusate sodium (Stool Softener) 100 mg PO DAILY [extra depth orthopedic shoes with 3 pairs of custom heat molded multidensity innersoles wear] fluticasone propionate 50 mcg/actuation 1 spray intranasal DAILY jssenxousdr-lpcsyrnwr-qjerxkqz 100-62.5-25 mcg (Trelegy Ellipta) 1 ea inhalation DAILY furosemide 40 mg PO QAM glimepiride 1 mg PO DAILY hydrocortisone 2.5% appl topical lancets (FreeStyle Lancets) test daily metformin 1,000 mg PO BID metoprolol succinate ER 50 mg PO DAILY omeprazole 40 mg PO DAILY oxybutynin chloride ER 20 mg PO QAM polyethylene glycol 3350 (Miralax) 17 grams PO DAILY triamcinolone acetonide 0.1% 1 appl topical BID-TID valsartan 40 mg PO BID vitamins A,C,T-lgvl-ckcgps 2,148 mcg-113 mg-45 mg-17.4mg (PreserVision AREDS) 1 tab PO BID warfarin 7.5 mg See Protocol PO DAILY MDD 1.5 tablets daily Nursing Note INR: 2.9- in therapeutic range Medications and supplements reviewed No changes in health, diet, medications, or supplements, Denies any signs and symptoms of bleeding or bruising or clotting. Bleeding, bruising, clotting discussed Nutritional guidance given Dose: 7.5mg x 2, 11.25mg x 5 F/U INR: 3 weeks Patient verbalizes understanding of instructions given pt states multiple bee stings while painting his porch on friday. 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
[2023-04-01 15:21] LABS: Prothrombin Time Whole Bld POC 34.6 sec (11.1-13.5); ~PT, ~INR - Anti Coag Clinic 2.9 (0.9-1.1)
== END 2023-04-01 15:26 | disposition home or self-care (01) ==
LOC: HO.ACS 15:15
PROVIDERS: PCP Internal Medicine; Visit Provider Internal Medicine
DX: Z79.01 Long term (current) use of anticoagulants (principal)

== ENCOUNTER → 2023-04-01 15:15 | Outpatient (BNVA) | payer MEDICARE, OTHER, SELFPAY | PROVIDERS: PCP Internal Medicine; Visit Provider Internal Medicine | DX: I26.99 Other pulmonary embolism without acute cor pulmonale (principal); Z79.01 Long term (current) use of anticoagulants; Z51.81 Encounter for therapeutic drug level monitoring | CPT/HCPCS: 85610; 99211 ==

== ENCOUNTER 2023-04-02 08:23 | Outpatient (AMB) | payer MEDICARE, OTHER, SELFPAY ==
[2023-04-02 08:39] VITALS: BP 110/60; PULSE 63; O2SAT 98; BMI 35.2
--- NOTE | 2023-04-02 08:39 | MHC.PC.OV ---
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 Allergies nicotine Allergy (Intermediate, Verified 04/02/23 08:40) Rash fish derived [FISH] Allergy (Unknown, Verified 04/02/23 08:40) ANGIOEDEMA tamsulosin [Flomax] Adverse Reaction (Intermediate, Verified 04/02/23 08:40) nightmares Medication List - Last Reconciled 04/02/23 by Jonathan Campoverde MD albuterol sulfate mg inhalation Q6H PRN albuterol sulfate 90 mcg/actuation inhalation blood sugar diagnostic (FreeStyle Lite Strips) daily blood-glucose meter (FreeStyle [place] Lite kit) As directed [custom heat molded multidensity innersoles wear 3 pairs of custom heat molded multidensity innersoles wear] docusate sodium (Stool Softener) 100 mg PO DAILY [extra depth orthopedic shoes with 3 pairs of custom heat molded multidensity innersoles wear] fluticasone propionate 50 mcg/actuation 1 spray intranasal DAILY hkpwzkufrgf-gcgmvnkau-refgblxc 100-62.5-25 mcg (Trelegy Ellipta) 1 ea inhalation DAILY furosemide 40 mg PO QAM glimepiride 1 mg PO DAILY hydrocortisone 2.5% appl topical lancets (FreeStyle Lancets) test daily metformin 1,000 mg PO BID metoprolol succinate ER 50 mg PO DAILY omeprazole 40 mg PO DAILY oxybutynin chloride ER 20 mg PO QAM polyethylene glycol 3350 (Miralax) 17 grams PO DAILY triamcinolone acetonide 0.1% 1 appl topical BID-TID valsartan 40 mg PO BID vitamins A,C,U-bykv-tjfdok 2,148 mcg-113 mg-45 mg-17.4mg (PreserVision AREDS) 1 tab PO BID warfarin 7.5 mg See Protocol PO DAILY MDD 1.5 tablets daily Tobacco use date assessed: 10/11/22 Fall risk assessment: No Falls in past year Dental Screening Dental Screen Date: 04/02/23 Did you have a dental visit in the last 12 months?: No Did you have a dental problem in the last 6 months where you did not have access to dental care?: No Was dental information given to patient?: Patient has dentist HPI Swelling of left foot/SOB HPI Details stung by bees both legs 3 days ago; swelling both lower legs PFSH Medical History Asthma Cardiomyopathy COVID-19 Hypertension Obesity Screening for diabetes mellitus Severe obesity (BMI 35.0-35.9 with comorbidity) Surgical History History of colonoscopy History of cystoscopy History of eye surgery History of surgery History of tonsillectomy History of transurethral resection of prostate Status post orchiopexy Family History Father Heart disease Mother Colon cancer Brother No problems noted. Brother No problems noted. Sister No problems noted. Social History Housing: House Alcohol intake: current Alcohol intake frequency: holidays/special occasions only Patient Tobacco Use Status: Former Tobacco user Tobacco use type: Cigarette Years Smoked: 50 e-Cigarette/Vaping Use: Never Used Second Hand Smoke Exposure: Yes service: No Current occupational status: employed and retired Current occupation: retired Cognitive needs: No Hearing needs: No Vision needs: Yes Questionnaire PHQ-9 Over the last 2 weeks, how often have you been bothered by any of the following problems? 1. Little interest or pleasure in doing things: not at all 2. Feeling down, depressed, or hopeless: not at all 3. Trouble falling or staying asleep, or sleeping too much: not at all 4. Feeling tired or having little energy: not at all 5. Poor appetite or overeating: not at all 6. Feeling bad about yourself - or that you are a failure or have let yourself or your family down: not at all 7. Trouble concentrating on things, such as reading the newspaper or watching television: not at all 8. Moving or speaking so slowly that other people could have noticed. Or the opposite - being so fidgety or restless that you have been moving around a lot more than usual: not at all 9. Thoughts that you would be better off or of hurting yourself in some way: not at all Total score: 0 Depression Screening Interpretation: Negative Source: Developed by Drs. Arnoldo Sarah, Julita Uriostegui, Vega Miller and colleagues, with an educational marisa from [employer]. Thrive Questionnaire Date Thrive assessed: 10/11/22 AUDIT C Alcohol Use Questionnaire (AUDIT-C) 1. How often do you have a drink containing alcohol?: Monthly or less 2. How many drinks containing alcohol do you have on a typical day when you are drinking?: 1 or 2 3. How often do you have six or more drinks on one occasion?: Never Total Score: 1 Score Reviewed/Action Taken: No CAYDEN-7 AMB Questionnaire CAYDEN-7 Date CAYDEN - 7 assessed: 10/11/22 Source: Developed by Drs. Arnoldo Sarah, Julita Uriostegui, Vega iMller and colleagues, with an educational marisa from [employer]. Review of Systems Const Denies chills, Denies headache(s) and Denies weight loss ENT Denies headache(s) Card Denies chest pain, Denies syncope, Denies irregular heart rhythm and Denies dyspnea Resp Denies chest congestion, Denies cough and Denies dyspnea GI Denies abdominal pain, Denies change in stool character, Denies nausea and Denies vomiting Musc Denies deformity and Denies joint swelling Neuro Denies syncope and Denies headache(s) Physical exam (Primary Care) Vital Signs: Last Vital Signs Pulse 63 04/02/23 08:39 BP 110/60 04/02/23 08:39 Pulse Ox 98 04/02/23 08:39 Oxygen Delivery Method Room Air 04/02/23 08:39 BMI result Body Mass Index 35.2 Tobacco/Smoking Status: Tobacco use Status Tobacco use date assessed 10/11/22 04/02/23 08:46 Patient Tobacco Use Status Former Tobacco user 04/02/23 08:46 Tobacco use type Cigarette 04/02/23 08:46 e-Cigarette/Vaping Use Never Used 04/02/23 08:46 PHQ-9: PHQ-9 Score PHQ-9: Total score 0 04/02/23 09:00 Depression Screening Interpretation: Negative Thrive Assessment: Date of Thrive Assessment Date Thrive assessed 10/11/22 04/02/23 08:46 Const General: cooperative, comfortable and no acute distress HENMT Head: Yes normal to inspection Resp Effort & Inspection: normal respiratory effort Auscultation: clear to auscultation bilaterally Percussion: percussion normal Cardio Jugular venous distension: no JVD Rate: regular rate Rhythm: regular rhythm Extrem Other: 1-2+ edema both lower legs Assessment and Plan Assessment & Plan (1) Bee sting reaction: Code(s): T63.441A - Toxic effect of venom of bees, accidental (unintentional), initial encounter Plan: increase Lasix to 2/d for 3 days Coding Level of Care Code Est Pt Level 3 (29146) Diagnoses Bee sting reaction T63.441A
== END 2023-04-02 09:40 | disposition home or self-care (01) ==
PROVIDERS: PCP Internal Medicine; Visit Provider Internal Medicine
DX: T63.441A Toxic effect of venom of bees, accidental (unintentional), initial encounter (principal)
CPT/HCPCS: 99213

== ENCOUNTER 2023-04-22 15:22 | Outpatient (AMB) | payer MEDICARE, OTHER, SELFPAY ==
--- NOTE | 2023-04-22 15:28 | MHC.OFFVISCO ---
Intake Intake Visit Reasons: Anticoagulation Allergies nicotine Allergy (Intermediate, Verified 04/22/23 15:23) Rash fish derived [FISH] Allergy (Unknown, Verified 04/22/23 15:23) ANGIOEDEMA tamsulosin [Flomax] Adverse Reaction (Intermediate, Verified 04/22/23 15:23) nightmares Medication List - Last Reconciled 04/22/23 by Olimpia Enriquez RN albuterol sulfate mg inhalation Q6H PRN albuterol sulfate 90 mcg/actuation inhalation blood sugar diagnostic (FreeStyle Lite Strips) daily blood-glucose meter (FreeStyle [place] Lite kit) As directed [custom heat molded multidensity innersoles wear 3 pairs of custom heat molded multidensity innersoles wear] docusate sodium (Stool Softener) 100 mg PO DAILY [extra depth orthopedic shoes with 3 pairs of custom heat molded multidensity innersoles wear] fluticasone propionate 50 mcg/actuation 1 spray intranasal DAILY pqzeskpkhwg-celbicsos-iwvcdxgm 100-62.5-25 mcg (Trelegy Ellipta) 1 ea inhalation DAILY furosemide 40 mg PO QAM glimepiride 1 mg PO DAILY hydrocortisone 2.5% appl topical lancets (FreeStyle Lancets) test daily metformin 1,000 mg PO BID metoprolol succinate ER 50 mg PO DAILY omeprazole 40 mg PO DAILY oxybutynin chloride ER 20 mg PO QAM polyethylene glycol 3350 (Miralax) 17 grams PO DAILY triamcinolone acetonide 0.1% 1 appl topical BID-TID valsartan 40 mg PO BID vitamins A,C,E-lupj-mnpmcr 2,148 mcg-113 mg-45 mg-17.4mg (PreserVision AREDS) 1 tab PO BID warfarin 7.5 mg See Protocol PO DAILY MDD 1.5 tablets daily Nursing Note INR: 2.7- in therapeutic range Medications and supplements reviewed No changes in health, diet, medications, or supplements, Denies any signs and symptoms of bleeding or bruising or clotting. Bleeding, bruising, clotting discussed Nutritional guidance given Dose: 7.5mg x 2, 11.25mg x 5 F/U INR: pt req 4 weeks Patient verbalizes understanding of instructions given Anti-Coag Initial Assessment Social Hx Patient Tobacco Use Status: Former Tobacco user Tobacco use type: Cigarette alcohol intake: current Alcohol intake frequency: holidays/special occasions only Cardiovascular Hx: HTN, CHF and Cardiomyopathy Lung Disease HX: Asthma, COPD and DVT/PE Endocrine Hx: Diabetes Blood Disorder Hx: Other GI Hx: Other Cancer HX: No Coding Level of Care Code Est Patient Level 1 Diagnoses Current use of anticoagulant therapy Z79.01 Results AMB INR Fingerstick AMB INR Fingerstick 2.7 Last Edit by Olimpia Enriquez RN on 04/22/23 15:30 Assessment & Plan Assessment & Plan (1) Current use of anticoagulant therapy: Code(s): Z79.01 - snf (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
[2023-04-23 08:06] LABS: Prothrombin Time Whole Bld POC 32.3 sec (11.1-13.5); ~PT, ~INR - Anti Coag Clinic 2.7 (0.9-1.1)
== END 2023-04-22 15:34 | disposition home or self-care (01) ==
LOC: HO.ACS 15:22
PROVIDERS: PCP Internal Medicine; Visit Provider Internal Medicine
DX: Z79.01 Long term (current) use of anticoagulants (principal)

== ENCOUNTER → 2023-04-22 15:22 | Outpatient (BNVA) | payer MEDICARE, OTHER, SELFPAY | PROVIDERS: PCP Internal Medicine; Visit Provider Internal Medicine | DX: I26.99 Other pulmonary embolism without acute cor pulmonale (principal); Z79.01 Long term (current) use of anticoagulants; Z51.81 Encounter for therapeutic drug level monitoring | CPT/HCPCS: 85610; 99211 ==

== ENCOUNTER 2023-04-23 08:17 | Outpatient (AMB) | payer MEDICARE, OTHER, SELFPAY ==
[2023-04-23 08:33] VITALS: BP 106/58; PULSE 68; O2SAT 95; BMI 34.7
--- NOTE | 2023-04-23 08:33 | MHC.PC.OV ---
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 Accompanied by: Self / Same As Patient Allergies nicotine Allergy (Intermediate, Verified 04/23/23 08:34) Rash fish derived [FISH] Allergy (Unknown, Verified 04/23/23 08:34) ANGIOEDEMA tamsulosin [Flomax] Adverse Reaction (Intermediate, Verified 04/23/23 08:34) nightmares Medication List - Last Reconciled 04/23/23 by Jonathan Campoverde MD albuterol sulfate mg inhalation Q6H PRN albuterol sulfate 90 mcg/actuation inhalation blood sugar diagnostic (FreeStyle Lite Strips) daily blood-glucose meter (FreeStyle [place] Lite kit) As directed [custom heat molded multidensity innersoles wear 3 pairs of custom heat molded multidensity innersoles wear] docusate sodium (Stool Softener) 100 mg PO DAILY [extra depth orthopedic shoes with 3 pairs of custom heat molded multidensity innersoles wear] fluticasone propionate 50 mcg/actuation 1 spray intranasal DAILY byzhnkeddgx-tqupixfqm-hjboqizq 100-62.5-25 mcg (Trelegy Ellipta) 1 ea inhalation DAILY furosemide 40 mg PO QAM glimepiride 1 mg PO DAILY hydrocortisone 2.5% appl topical lancets (FreeStyle Lancets) test daily metformin 1,000 mg PO BID metoprolol succinate ER 50 mg PO DAILY omeprazole 40 mg PO DAILY oxybutynin chloride ER 20 mg PO QAM polyethylene glycol 3350 (Miralax) 17 grams PO DAILY triamcinolone acetonide 0.1% 1 appl topical BID-TID valsartan 40 mg PO BID vitamins A,C,H-czdg-txxvgh 2,148 mcg-113 mg-45 mg-17.4mg (PreserVision AREDS) 1 tab PO BID warfarin 7.5 mg See Protocol PO DAILY MDD 1.5 tablets daily Tobacco use date assessed: 10/11/22 Fall risk assessment: No Falls in past year Last assessed Fall Risk: 04/23/23 Dental Screening Dental Screen Date: 04/23/23 Did you have a dental visit in the last 12 months?: No Did you have a dental problem in the last 6 months where you did not have access to dental care?: No Was dental information given to patient?: Patient has dentist HPI 3 Month F/Up HPI Details DM HTN and asthma; doing well; BS controlled [facility] Medical History Severe obesity (BMI 35.0-35.9 with comorbidity) Screening for diabetes mellitus Obesity Hypertension Cardiomyopathy COVID-19 Asthma Surgical History History of surgery History of colonoscopy History of transurethral resection of prostate History of cystoscopy Status post orchiopexy History of eye surgery History of tonsillectomy Family History Father Heart disease Mother Colon cancer Brother No problems noted. Brother No problems noted. Sister No problems noted. Social History Housing: House Alcohol intake: current Alcohol intake frequency: holidays/special occasions only Patient Tobacco Use Status: Former Tobacco user Tobacco use type: Cigarette Years Smoked: 50 e-Cigarette/Vaping Use: Never Used Second Hand Smoke Exposure: Yes service: No Current occupational status: employed and retired Current occupation: retired Cognitive needs: No Hearing needs: No Vision needs: Yes Questionnaire PHQ-9 Over the last 2 weeks, how often have you been bothered by any of the following problems? 1. Little interest or pleasure in doing things: not at all 2. Feeling down, depressed, or hopeless: not at all 3. Trouble falling or staying asleep, or sleeping too much: not at all 4. Feeling tired or having little energy: not at all 5. Poor appetite or overeating: not at all 6. Feeling bad about yourself - or that you are a failure or have let yourself or your family down: not at all 7. Trouble concentrating on things, such as reading the newspaper or watching television: not at all 8. Moving or speaking so slowly that other people could have noticed. Or the opposite - being so fidgety or restless that you have been moving around a lot more than usual: not at all 9. Thoughts that you would be better off or of hurting yourself in some way: not at all Total score: 0 Depression Screening Interpretation: Negative 30852 - PHQ-9 Billing: Yes Source: Developed by Drs. Arnoldo Sarah, Julita Uriostegui, Vega Miller and colleagues, with an educational marisa from [employer]. Thrive Questionnaire Date Thrive assessed: 10/11/22 AUDIT C Alcohol Use Questionnaire (AUDIT-C) 1. How often do you have a drink containing alcohol?: Monthly or less 2. How many drinks containing alcohol do you have on a typical day when you are drinking?: 1 or 2 3. How often do you have six or more drinks on one occasion?: Never Total Score: 1 Score Reviewed/Action Taken: Yes CAYDEN-7 AMB Questionnaire CAYDEN-7 Date CAYDEN - 7 assessed: 10/11/22 Source: Developed by Drs. Arnoldo Sarah, Julita Uriostegui, Vega Miller and colleagues, with an educational marisa from [employer]. Review of Systems Const Denies chills, Denies headache(s) and Denies weight loss ENT Denies headache(s) Card Denies chest pain, Denies syncope, Denies irregular heart rhythm and Denies dyspnea Resp Denies chest congestion, Denies cough and Denies dyspnea GI Denies abdominal pain, Denies change in stool character, Denies nausea and Denies vomiting Musc Denies deformity and Denies joint swelling Neuro Denies syncope and Denies headache(s) Physical exam (Primary Care) Vital Signs: Last Vital Signs Pulse 68 04/23/23 08:33 BP 106/58 L 04/23/23 08:33 Pulse Ox 95 04/23/23 08:33 Oxygen Delivery Method Room Air 04/23/23 08:33 BMI result Body Mass Index 34.7 Tobacco/Smoking Status: Tobacco use Status Tobacco use date assessed 10/11/22 04/23/23 08:38 Patient Tobacco Use Status Former Tobacco user 04/23/23 08:38 Tobacco use type Cigarette 04/23/23 08:38 e-Cigarette/Vaping Use Never Used 04/23/23 08:38 PHQ-9: PHQ-9 Score PHQ-9: Total score 0 04/23/23 08:38 Depression Screening Interpretation: Negative Thrive Assessment: Date of Thrive Assessment Date Thrive assessed 10/11/22 04/23/23 08:38 Const General: cooperative, comfortable, no acute distress and alert Neck Neck: Yes no lymphadenopathy Thyroid: Thyroid normal Resp Effort & Inspection: normal respiratory effort Auscultation: clear to auscultation bilaterally Percussion: percussion normal Cardio Jugular venous distension: no JVD Palpation: normal PMI Rate: regular rate Rhythm: regular rhythm Heart sounds: S1 normal heart sound present and S2 normal heart sound present GI Inspection: Yes normal to inspection Palpation (GI): No hepatosplenomegaly present Skin General skin exam: no rashes or lesions noted Extrem General: Yes no clubbing, cyanosis or edema Assessment and Plan Assessment & Plan (1) Diabetes mellitus with coincident hypertension: Code(s): E11.9 - Type 2 diabetes mellitus without complications; I10 - Essential (primary) hypertension Plan: stable; do labs (2) Hypertension: Code(s): I10 - Essential (primary) hypertension Plan: stable; same rx (3) Asthma: Code(s): J45.909 - Unspecified asthma, uncomplicated Plan: doing well; same rx Orders: Orders Lipid Panel Today E78.5 - Hyperlipidemia, unspecified Complete Blood Count Auto Diff Today D64.9 - Anemia, unspecified Hemoglobin A1c Today R73.9 - Hyperglycemia, unspecified Microalbumin, Random (w Creat) Today E11.69 - Type 2 diabetes mellitus with other specified complication, E66.01 - Morbid (severe) obesity due to excess calories Comprehensive [place]. Panel Fast Today N28.9 - Disorder of kidney and ureter, unspecified Coding Level of Care Code Est Pt Level 4 (37936) Diagnoses Diabetes mellitus with coincident hypertension E11.9; I10 Hypertension I10 Asthma J45.909
== END 2023-04-23 08:44 | disposition home or self-care (01) ==
PROVIDERS: PCP Internal Medicine; Visit Provider Internal Medicine
DX: E11.9 Type 2 diabetes mellitus without complications (principal); I10 Essential (primary) hypertension; J45.909 Unspecified asthma, uncomplicated
CPT/HCPCS: 99214

== ENCOUNTER 2023-05-20 15:19 | Outpatient (AMB) | payer MEDICARE, OTHER, SELFPAY ==
--- NOTE | 2023-05-20 15:24 | MHC.OFFVISCO ---
Intake Intake Visit Reasons: Anticoagulation Allergies nicotine Allergy (Intermediate, Verified 05/20/23 15:19) Rash fish derived [FISH] Allergy (Unknown, Verified 05/20/23 15:19) ANGIOEDEMA tamsulosin [Flomax] Adverse Reaction (Intermediate, Verified 05/20/23 15:19) nightmares Medication List - Last Reconciled 05/20/23 by Olimpia Enriquez RN albuterol sulfate mg inhalation Q6H PRN albuterol sulfate 90 mcg/actuation inhalation blood sugar diagnostic (FreeStyle Lite Strips) daily blood-glucose meter (FreeStyle [place] Lite kit) As directed [custom heat molded multidensity innersoles wear 3 pairs of custom heat molded multidensity innersoles wear] docusate sodium (Stool Softener) 100 mg PO DAILY [extra depth orthopedic shoes with 3 pairs of custom heat molded multidensity innersoles wear] fluticasone propionate 50 mcg/actuation 1 spray intranasal DAILY faiozvcoazv-pylyxugeo-cbrpwahw 100-62.5-25 mcg (Trelegy Ellipta) 1 ea inhalation DAILY furosemide 40 mg PO QAM glimepiride 1 mg PO DAILY hydrocortisone 2.5% appl topical lancets (FreeStyle Lancets) test daily metformin 1,000 mg PO BID metoprolol succinate ER 50 mg PO DAILY omeprazole 40 mg PO DAILY oxybutynin chloride ER 20 mg PO QAM polyethylene glycol 3350 (Miralax) 17 grams PO DAILY triamcinolone acetonide 0.1% 1 appl topical BID-TID valsartan 40 mg PO BID vitamins A,C,S-tyzp-pyzneg 2,148 mcg-113 mg-45 mg-17.4mg (PreserVision AREDS) 1 tab PO BID warfarin 7.5 mg See Protocol PO DAILY MDD 1.5 tablets daily Nursing Note INR 3.6-?? out of therapeutic range Medications and supplements reviewed Patient status: no c.o, some stress, appetite less Medications or supplements: no changes, had flu shot approx one week ago Diet: eating less Denies any signs and symptoms of bleeding or clotting or unusual bruising Bleeding, bruising, clotting discussed Nutritional guidance given: eat greens for 2 days, no reds for 2 days Dose: 7.5mg today and tomm, then cont reg 11.25mg x 5, 7.5mg x 2 F/U INR Date : 2 weeks?? Patient verbalizing understanding of instructions given. 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
[2023-05-20 15:25] LABS: Prothrombin Time Whole Bld POC 43.6 sec (11.1-13.5); ~PT, ~INR - Anti Coag Clinic 3.6 (0.9-1.1)
== END 2023-05-20 15:33 | disposition home or self-care (01) ==
LOC: HO.ACS 15:19
PROVIDERS: PCP Internal Medicine; Visit Provider Internal Medicine
DX: Z79.01 Long term (current) use of anticoagulants (principal)

== ENCOUNTER → 2023-05-20 15:19 | Outpatient (BNVA) | payer MEDICARE, OTHER, SELFPAY | PROVIDERS: PCP Internal Medicine; Visit Provider Internal Medicine | DX: I26.99 Other pulmonary embolism without acute cor pulmonale (principal); Z79.01 Long term (current) use of anticoagulants; Z51.81 Encounter for therapeutic drug level monitoring | CPT/HCPCS: 85610; 99211 ==

== ENCOUNTER 2023-06-03 15:22 | Outpatient (AMB) | payer MEDICARE, OTHER, SELFPAY ==
--- NOTE | 2023-06-03 15:26 | MHC.OFFVISCO ---
Intake Intake Visit Reasons: Anticoagulation Allergies nicotine Allergy (Intermediate, Verified 06/03/23 15:23) Rash fish derived [FISH] Allergy (Unknown, Verified 06/03/23 15:23) ANGIOEDEMA tamsulosin [Flomax] Adverse Reaction (Intermediate, Verified 06/03/23 15:23) nightmares Medication List - Last Reconciled 06/03/23 by Olimpia Enriquez RN albuterol sulfate mg inhalation Q6H PRN albuterol sulfate 90 mcg/actuation inhalation blood sugar diagnostic (FreeStyle Lite Strips) daily blood-glucose meter (FreeStyle [place] Lite kit) As directed [custom heat molded multidensity innersoles wear 3 pairs of custom heat molded multidensity innersoles wear] docusate sodium (Stool Softener) 100 mg PO DAILY [extra depth orthopedic shoes with 3 pairs of custom heat molded multidensity innersoles wear] fluticasone propionate 50 mcg/actuation 1 spray intranasal DAILY mckdhdotnsf-umdlrihcl-qtzmglwd 100-62.5-25 mcg (Trelegy Ellipta) 1 ea inhalation DAILY furosemide 40 mg PO QAM glimepiride 1 mg PO DAILY hydrocortisone 2.5% appl topical lancets (FreeStyle Lancets) test daily metformin 1,000 mg PO BID metoprolol succinate ER 50 mg PO DAILY omeprazole 40 mg PO DAILY oxybutynin chloride ER 20 mg PO QAM polyethylene glycol 3350 (Miralax) 17 grams PO DAILY triamcinolone acetonide 0.1% 1 appl topical BID-TID valsartan 40 mg PO BID vitamins A,C,D-ohoa-azqufg 2,148 mcg-113 mg-45 mg-17.4mg (PreserVision AREDS) 1 tab PO BID warfarin 7.5 mg See Protocol PO DAILY MDD 1.5 tablets daily Nursing Note INR: 2.6- in therapeutic range 2-3 Medications and supplements reviewed No changes in health, diet, medications, or supplements, Denies any signs and symptoms of bleeding or bruising or clotting. Bleeding, bruising, clotting discussed Nutritional guidance given Dose: 11.25mg x 5, 7.5mg x 2 F/U INR: 3 weeks Patient verbalizes understanding of instructions given gel injection right knee weekly x 3 laser surgery to left eye 06/20/23 hearing aids Anti-Coag Initial Assessment Social Hx Patient Tobacco Use Status: Former Tobacco user Tobacco use type: Cigarette alcohol intake: current Alcohol intake frequency: holidays/special occasions only Cardiovascular Hx: HTN, CHF and Cardiomyopathy Lung Disease HX: Asthma, COPD and DVT/PE Endocrine Hx: Diabetes Blood Disorder Hx: Other GI Hx: Other Cancer HX: No Coding Level of Care Code Est Patient Level 1 Diagnoses Current use of anticoagulant therapy Z79.01 Results AMB INR Fingerstick AMB INR Fingerstick 2.6 Last Edit by Olimpia Enriquez RN on 06/03/23 15:29 Assessment & Plan Assessment & Plan (1) Current use of anticoagulant therapy: Code(s): 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
[2023-06-03 15:37] LABS: Prothrombin Time Whole Bld POC 31.2 sec (11.1-13.5); ~PT, ~INR - Anti Coag Clinic 2.6 (0.9-1.1)
== END 2023-06-03 15:33 | disposition home or self-care (01) ==
LOC: HO.ACS 15:22
PROVIDERS: PCP Internal Medicine; Visit Provider Internal Medicine
DX: Z79.01 Long term (current) use of anticoagulants (principal)

== ENCOUNTER → 2023-06-03 15:22 | Outpatient (BNVA) | payer MEDICARE, OTHER, SELFPAY | PROVIDERS: PCP Internal Medicine; Visit Provider Internal Medicine | DX: I26.99 Other pulmonary embolism without acute cor pulmonale (principal); Z79.01 Long term (current) use of anticoagulants; Z51.81 Encounter for therapeutic drug level monitoring | CPT/HCPCS: 85610; 99211 ==

== ENCOUNTER 2023-06-24 08:49 | Outpatient (AMB) | payer MEDICARE, OTHER, SELFPAY ==
--- NOTE | 2023-06-24 09:00 | MHC.OFFVISCO ---
Intake Intake Visit Reasons: Anticoagulation Allergies nicotine Allergy (Intermediate, Verified 06/24/23 08:56) Rash fish derived [FISH] Allergy (Unknown, Verified 06/24/23 08:56) ANGIOEDEMA tamsulosin [Flomax] Adverse Reaction (Intermediate, Verified 06/24/23 08:56) nightmares Medication List - Last Reconciled 06/24/23 by Olimpia Enriquez RN albuterol sulfate mg inhalation Q6H PRN albuterol sulfate 90 mcg/actuation inhalation blood sugar diagnostic (FreeStyle Lite Strips) daily blood-glucose meter (FreeStyle [place] Lite kit) As directed [custom heat molded multidensity innersoles wear 3 pairs of custom heat molded multidensity innersoles wear] docusate sodium (Stool Softener) 100 mg PO DAILY [extra depth orthopedic shoes with 3 pairs of custom heat molded multidensity innersoles wear] fluticasone propionate 50 mcg/actuation 1 spray intranasal DAILY kjfbkvirrlx-cnyhnwgls-heiconyi 100-62.5-25 mcg (Trelegy Ellipta) 1 ea inhalation DAILY furosemide 40 mg PO QAM glimepiride 1 mg PO DAILY hydrocortisone 2.5% appl topical lancets (FreeStyle Lancets) test daily metformin 1,000 mg PO BID metoprolol succinate ER 50 mg PO DAILY omeprazole 40 mg PO DAILY oxybutynin chloride ER 20 mg PO QAM polyethylene glycol 3350 (Miralax) 17 grams PO DAILY triamcinolone acetonide 0.1% 1 appl topical BID-TID valsartan 40 mg PO BID vitamins A,C,A-bawk-dhgxsk 2,148 mcg-113 mg-45 mg-17.4mg (PreserVision AREDS) 1 tab PO BID warfarin 7.5 mg See Protocol PO DAILY MDD 1.5 tablets daily Nursing Note INR 3.1-? out of therapeutic range Medications and supplements reviewed Patient status: pt with c.o congestion, no fever Medications or supplements: no changes, took cold capsules over the weekend but none now Diet: same Denies any signs and symptoms of bleeding or clotting or unusual bruising Bleeding, bruising, clotting discussed Nutritional guidance given: eat greens for 2 days, no reds for 2-3 days Dose: 7.5mg x 2, 11.25mg x 5 F/U INR Date : 2 weeks? Patient verbalizing understanding of instructions given. Anti-Coag Initial Assessment Social Hx Patient Tobacco Use Status: Former Tobacco user Tobacco use type: Cigarette alcohol intake: current Alcohol intake frequency: holidays/special occasions only Cardiovascular Hx: HTN, CHF and Cardiomyopathy Lung Disease HX: Asthma, COPD and DVT/PE Endocrine Hx: Diabetes Blood Disorder Hx: Other GI Hx: Other Cancer HX: No Coding Level of Care Code Est Patient Level 1
[2023-06-24 09:01] LABS: Prothrombin Time Whole Bld POC 37.5 sec (11.1-13.5); ~PT, ~INR - Anti Coag Clinic 3.1 (0.9-1.1)
== END 2023-06-24 09:06 | disposition home or self-care (01) ==
LOC: HO.ACS 08:49
PROVIDERS: PCP Internal Medicine; Visit Provider Internal Medicine
DX: Z79.01 Long term (current) use of anticoagulants (principal)

== ENCOUNTER → 2023-06-24 08:49 | Outpatient (BNVA) | payer MEDICARE, OTHER, SELFPAY | PROVIDERS: PCP Internal Medicine; Visit Provider Internal Medicine | DX: I26.99 Other pulmonary embolism without acute cor pulmonale (principal); Z51.81 Encounter for therapeutic drug level monitoring; Z79.01 Long term (current) use of anticoagulants | CPT/HCPCS: 85610; 99211 ==

== ENCOUNTER 2023-07-08 08:45 | Outpatient (AMB) | payer MEDICARE, OTHER, SELFPAY ==
[2023-07-08 08:50] LABS: Prothrombin Time Whole Bld POC 38.3 sec (11.1-13.5); ~PT, ~INR - Anti Coag Clinic 3.2 (0.9-1.1)
--- NOTE | 2023-07-08 08:50 | MHC.OFFVISCO ---
Intake Intake Visit Reasons: Anticoagulation Allergies nicotine Allergy (Intermediate, Verified 07/08/23 08:46) Rash fish derived [FISH] Allergy (Unknown, Verified 07/08/23 08:46) ANGIOEDEMA tamsulosin [Flomax] Adverse Reaction (Intermediate, Verified 07/08/23 08:46) nightmares Medication List - Last Reconciled 07/08/23 by Olimpia Enriquez RN albuterol sulfate mg inhalation Q6H PRN albuterol sulfate 90 mcg/actuation inhalation blood sugar diagnostic (FreeStyle Lite Strips) daily blood-glucose meter (FreeStyle [place] Lite kit) As directed [custom heat molded multidensity innersoles wear 3 pairs of custom heat molded multidensity innersoles wear] docusate sodium (Stool Softener) 100 mg PO DAILY [extra depth orthopedic shoes with 3 pairs of custom heat molded multidensity innersoles wear] fluticasone propionate 50 mcg/actuation 1 spray intranasal DAILY iddkxnonnhn-unwwuntwi-dpldnwrk 100-62.5-25 mcg (Trelegy Ellipta) 1 ea inhalation DAILY furosemide 40 mg PO QAM glimepiride 1 mg PO DAILY hydrocortisone 2.5% appl topical lancets (FreeStyle Lancets) test daily metformin 1,000 mg PO BID metoprolol succinate ER 50 mg PO DAILY omeprazole 40 mg PO DAILY oxybutynin chloride ER 20 mg PO QAM polyethylene glycol 3350 (Miralax) 17 grams PO DAILY triamcinolone acetonide 0.1% 1 appl topical BID-TID valsartan 40 mg PO BID vitamins A,C,C-gxqn-hjpbre 2,148 mcg-113 mg-45 mg-17.4mg (PreserVision AREDS) 1 tab PO BID warfarin 7.5 mg See Protocol PO DAILY MDD 1.5 tablets daily Nursing Note INR 3.2-?? out of therapeutic range of 2-3 Medications and supplements reviewed Patient status: no c.o Medications or supplements: no changes Diet: same Denies any signs and symptoms of bleeding or clotting or unusual bruising Bleeding, bruising, clotting discussed Nutritional guidance given: eat greens to lower, no reds for 2 days Dose: decrease weekly dosing sl, 7.5mg x 3, 11.25mg x 4 F/U INR Date : 2 weeks?? Patient verbalizing understanding of instructions given. 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
== END 2023-07-08 08:57 | disposition home or self-care (01) ==
LOC: HO.ACS 08:45
PROVIDERS: PCP Internal Medicine; Visit Provider Internal Medicine
DX: Z79.01 Long term (current) use of anticoagulants (principal)

== ENCOUNTER → 2023-07-08 08:45 | Outpatient (BNVA) | payer MEDICARE, OTHER, SELFPAY | PROVIDERS: PCP Internal Medicine; Visit Provider Internal Medicine | DX: I26.99 Other pulmonary embolism without acute cor pulmonale (principal); Z79.01 Long term (current) use of anticoagulants; Z51.81 Encounter for therapeutic drug level monitoring | CPT/HCPCS: 85610; 99211 ==

== ENCOUNTER 2023-07-19 07:03 | Outpatient (REF) | payer MEDICARE, OTHER, SELFPAY ==
[2023-07-19 07:22] LABS: MANUAL DIFF FLAG NO
[2023-07-19 08:12] LABS: Basophils Absolute Auto 0.1 X10*3/uL (0.0-0.2); Basophils Percent Auto 0.4 % (0-2); Eosinophils Absolute Auto 0.1 X10*3/uL (0.0-0.4); Eosinophils Percent Auto 0.6 % (0-4); Hematocrit 46.2 % (42.0-52.0); Hemoglobin 15.2 g/dl (14.0-18.0); Imm Gran Abs Auto 0.04 X10*3/uL (0.00-0.03); Imm Gran Pct Auto 0.3 % (0.0-0.4); Lymphocytes Absolute Auto 3.4 X10*3/uL (1.2-4.9); Mean Corpuscular HGB Conc 32.9 g/dl (31.0-36.0); Mean Corpuscular Hemoglobin 29.3 pg (27.0-33.0); Mean Platelet Volume 9.5 fL (9.4-12.4); Monocytes Absolute Auto 1.3 X10*3/uL (0.1-1.2); Monocytes Percent Auto 10.9 % (2-11); Neutrophils Absolute Auto 7.2 x10*3/uL (2.0-8.3); Neutrophils Percent Auto 59.8 % (45-73); Platelet Count 344 X10*3/uL (160-400); Red Blood Count 5.19 X10*6/uL (4.60-5.80); Red Cell Distribution Width 16.8 % (11.0-16.0)
[2023-07-19 08:18] LABS: Estimated Average Glucose 123 mg/dL; Hemoglobin A1c % 5.9 % (<6.0)
[2023-07-19 08:29] LABS: Alanine Aminotransferase 21 U/L (0-40); Albumin Level 3.8 g/dL (3.5-5.0); Alkaline Phosphatase 101 U/L (39-117); Anion Gap 15 (12-20); Aspartate Amino Transferase 18 U/L (5-37); Bilirubin Total 0.5 mg/dL (0.0-1.0); Blood Urea Nitrogen 26 mg/dL (9-16); Calcium 9.4 mg/dL (8.4-10.2); Carbon Dioxide 25 mmol/L (22-29); Chloride 108 mmol/L (96-108); Cholesterol 174 mg/dL (<200); Estimated Glomerular Filt Rate > 60; Glucose Fasting 100 mg/dL (60-99); HDL Cholesterol 42 mg/dL (>40); LDL Cholesterol Calculated 118 mg/dL (<100); Potassium 3.8 mmol/L (3.3-5.1); Sodium 144 mmol/L (135-145); Total Protein 7.3 g/dL (6.5-8.0); Triglycerides 70 mg/dL (<150)
[2023-07-19 09:21] LABS: Creatinine Urine 148.58 mg/dL; Microalbum/Creatinine Ratio Ur 23.5 ug/mg cr (<30)
== END 2023-07-19 07:04 | disposition home or self-care (01) ==
LOC: HO.LAB 07:03
PROVIDERS: PCP Internal Medicine; Visit Provider Internal Medicine
DX: E11.69 Type 2 diabetes mellitus with other specified complication (principal); E11.65 Type 2 diabetes mellitus with hyperglycemia; E66.01 Morbid (severe) obesity due to excess calories; E78.5 Hyperlipidemia, unspecified; N28.9 Disorder of kidney and ureter, unspecified; D64.9 Anemia, unspecified
CPT/HCPCS: 36415; 80053; 80061; 82043; 82570; 83036; 85025

== ENCOUNTER 2023-07-22 09:09 | Outpatient (AMB) | payer MEDICARE, OTHER, SELFPAY ==
[2023-07-22 09:27] LABS: Prothrombin Time Whole Bld POC 32.2 sec (11.1-13.5); ~PT, ~INR - Anti Coag Clinic 2.7 (0.9-1.1)
--- NOTE | 2023-07-22 09:32 | MHC.OFFVISCO ---
Intake Intake Visit Reasons: Anticoagulation Allergies nicotine Allergy (Intermediate, Verified 07/22/23 09:22) Rash fish derived [FISH] Allergy (Unknown, Verified 07/22/23 09:22) ANGIOEDEMA tamsulosin [Flomax] Adverse Reaction (Intermediate, Verified 07/22/23 09:22) nightmares Medication List - Last Reconciled 07/22/23 by Yakelin Jenkins RN albuterol sulfate mg inhalation Q6H PRN albuterol sulfate 90 mcg/actuation inhalation azithromycin 250 mg PO DIRECTED blood sugar diagnostic (FreeStyle Lite Strips) daily blood-glucose meter (FreeStyle [place] Lite kit) As directed [custom heat molded multidensity innersoles wear 3 pairs of custom heat molded multidensity innersoles wear] docusate sodium (Stool Softener) 100 mg PO DAILY [extra depth orthopedic shoes with 3 pairs of custom heat molded multidensity innersoles wear] fluticasone propionate 50 mcg/actuation 1 spray intranasal DAILY qzhifallxry-fjabecyqi-dsvyutwz 100-62.5-25 mcg (Trelegy Ellipta) 1 ea inhalation DAILY furosemide 40 mg PO QAM glimepiride 1 mg PO DAILY hydrocortisone 2.5% appl topical lancets (FreeStyle Lancets) test daily metformin 1,000 mg PO BID metoprolol succinate ER 50 mg PO DAILY omeprazole 40 mg PO DAILY oxybutynin chloride ER 20 mg PO QAM polyethylene glycol 3350 (Miralax) 17 grams PO DAILY prednisone mg PO triamcinolone acetonide 0.1% 1 appl topical BID-TID valsartan 40 mg PO BID vitamins A,C,D-nivg-uhquzi 2,148 mcg-113 mg-45 mg-17.4mg (PreserVision AREDS) 1 tab PO BID warfarin 7.5 mg See Protocol PO DAILY MDD 1.5 tablets daily Nursing Note INR: 2.7 in therapeutic range COMPLETING ANTBX - HAS 1 MORE DAY LEFT HE HAD A DECREASED DOSE LAST WEEK, WILL RESUME USUAL DOSE, EAT AN EXTRA GREEN NEXT WEEK DUE LINGER EFECT OF ANTBX RAISNG INR Medications and supplements reviewed No changes in health, diet, medications, or supplements, Denies any signs and symptoms of bleeding or bruising or clotting. Bleeding, bruising, clotting discussed Nutritional guidance given -EXTRA GREEN NEXT WEEK Dose: RESUME 7.5MG X 3 DAYS/ 11.25MG X 4 DAYS F/U INR: 3 WEEKS PER PT REQUEST Patient verbalizes understanding of instructions given Anti-Coag Initial Assessment Social Hx Patient Tobacco Use Status: Former Tobacco user Tobacco use type: Cigarette alcohol intake: current Alcohol intake frequency: holidays/special occasions only Cardiovascular Hx: HTN, CHF and Cardiomyopathy Lung Disease HX: Asthma, COPD and DVT/PE Endocrine Hx: Diabetes Blood Disorder Hx: Other GI Hx: Other Cancer HX: No Coding Level of Care Code Est Patient Level 1 Diagnoses Current use of anticoagulant therapy Z79.01 Assessment & Plan Assessment & Plan (1) Current use of anticoagulant therapy: Code(s): Z79.01 - jail (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
== END 2023-07-22 09:36 | disposition home or self-care (01) ==
LOC: HO.ACS 09:09
PROVIDERS: PCP Internal Medicine; Visit Provider Internal Medicine
DX: Z79.01 Long term (current) use of anticoagulants (principal)

== ENCOUNTER → 2023-07-22 09:09 | Outpatient (BNVA) | payer MEDICARE, OTHER, SELFPAY | PROVIDERS: PCP Internal Medicine; Visit Provider Internal Medicine | DX: I26.99 Other pulmonary embolism without acute cor pulmonale (principal); Z79.01 Long term (current) use of anticoagulants; Z51.81 Encounter for therapeutic drug level monitoring | CPT/HCPCS: 85610; 99211 ==

== ENCOUNTER 2023-07-25 08:30 | Outpatient (AMB) | payer MEDICARE, OTHER, SELFPAY ==
[2023-07-25 08:40] VITALS: BP 108/70; PULSE 70; O2SAT 96; BMI 34.1
--- NOTE | 2023-07-25 08:40 | A.OFFPC_ITS ---
Vital Signs 07/25/23 08:40 Height 5 ft 10 in Weight 238 lb BMI 34.1 BP 108/70 Blood Pressure Location Lt brachial Position Sitting Pulse 70 Pulse Source Pulse Oximeter Pulse Oximetry (%) 96 Oxygen Delivery Method Room Air Intake Visit Reasons: 3mth f/u [employer] Nurse Required: No Dice Table Operator: Not Required per policy Accompanied by: Self / Same As Patient Allergies nicotine Allergy (Intermediate, Verified 07/25/23 08:41) Rash fish derived [FISH] Allergy (Unknown, Verified 07/25/23 08:41) ANGIOEDEMA tamsulosin [Flomax] Adverse Reaction (Intermediate, Verified 07/25/23 08:41) nightmares Medication List - Last Reconciled 07/25/23 by Jonathan Campoverde MD albuterol sulfate mg inhalation Q6H PRN albuterol sulfate 90 mcg/actuation inhalation azithromycin 250 mg PO DIRECTED blood sugar diagnostic (FreeStyle Lite Strips) daily blood-glucose meter (FreeStyle [place] Lite kit) As directed [custom heat molded multidensity innersoles wear 3 pairs of custom heat molded multidensity innersoles wear] docusate sodium (Stool Softener) 100 mg PO DAILY [extra depth orthopedic shoes with 3 pairs of custom heat molded multidensity innersoles wear] fluticasone propionate 50 mcg/actuation 1 spray intranasal DAILY oipabcstjvt-edrycnfge-akatpegy 100-62.5-25 mcg (Trelegy Ellipta) 1 ea inhalation DAILY furosemide 40 mg PO QAM glimepiride 1 mg PO DAILY hydrocortisone 2.5% appl topical lancets (FreeStyle Lancets) test daily metformin 1,000 mg PO BID metoprolol succinate ER 50 mg PO DAILY omeprazole 40 mg PO DAILY oxybutynin chloride ER 20 mg PO QAM polyethylene glycol 3350 (Miralax) 17 grams PO DAILY prednisone mg PO triamcinolone acetonide 0.1% 1 appl topical BID-TID valsartan 40 mg PO BID vitamins A,C,J-pngd-qtqabi 2,148 mcg-113 mg-45 mg-17.4mg (PreserVision AREDS) 1 tab PO BID warfarin 7.5 mg See Protocol PO DAILY MDD 1.5 tablets daily Tobacco use date assessed: 10/11/22 Fall risk assessment: No Falls in past year Last assessed Fall Risk: 07/25/23 Dental Screening Dental Screen Date: 07/25/23 Did you have a dental visit in the last 12 months?: Yes Did you have a dental problem in the last 6 months where you did not have access to dental care?: No Was dental information given to patient?: Patient has dentist HPI 3mth f/u HPI Details DM HTN and asthma; stable and doing well; compliant [facility] Medical History Severe obesity (BMI 35.0-35.9 with comorbidity) Screening for diabetes mellitus Obesity Hypertension Cardiomyopathy COVID-19 Asthma Surgical History History of surgery History of colonoscopy History of transurethral resection of prostate History of cystoscopy Status post orchiopexy History of eye surgery History of tonsillectomy Family History Father Heart disease Mother Colon cancer Brother No problems noted. Brother No problems noted. Sister No problems noted. Social History Housing: House Alcohol intake: current Alcohol intake frequency: holidays/special occasions only Patient Tobacco Use Status: Former Tobacco user Tobacco use type: Cigarette Years Smoked: 50 e-Cigarette/Vaping Use: Never Used Second Hand Smoke Exposure: Yes service: No Current occupational status: employed and retired Current occupation: retired Cognitive needs: No Hearing needs: No Vision needs: Yes Questionnaire Thrive Questionnaire Date Thrive assessed: 10/11/22 CAYDEN-7 AMB Questionnaire CAYDEN-7 Date CAYDEN - 7 assessed: 10/11/22 Source: Developed by Drs. Arnoldo Sarah, Julita Uriostegui, Vega Miller and colleagues, with an educational marisa from [employer]. Review of Systems Const Denies chills, Denies headache(s) and Denies weight loss ENT Denies headache(s) Card Denies chest pain, Denies syncope, Denies irregular heart rhythm and Denies dyspnea Resp Denies chest congestion, Denies cough and Denies dyspnea GI Denies abdominal pain, Denies change in stool character, Denies nausea and Denies vomiting Musc Denies deformity and Denies joint swelling Neuro Denies syncope and Denies headache(s) Physical exam (Primary Care) Vital Signs: Last Vital Signs Pulse 70 07/25/23 08:40 BP 108/70 07/25/23 08:40 Pulse Ox 96 07/25/23 08:40 Oxygen Delivery Method Room Air 07/25/23 08:40 BMI result Body Mass Index 34.1 Tobacco/Smoking Status: Tobacco use Status Tobacco use date assessed 10/11/22 07/25/23 08:45 Patient Tobacco Use Status Former Tobacco user 07/25/23 08:45 Tobacco use type Cigarette 07/25/23 08:45 e-Cigarette/Vaping Use Never Used 07/25/23 08:45 Thrive Assessment: Date of Thrive Assessment Date Thrive assessed 10/11/22 07/25/23 08:45 Const General: cooperative, comfortable, no acute distress and alert Neck Neck: Yes no lymphadenopathy Thyroid: Thyroid normal Resp Effort & Inspection: normal respiratory effort Auscultation: clear to auscultation bilaterally Percussion: percussion normal Cardio Jugular venous distension: no JVD Palpation: normal PMI Rate: regular rate Rhythm: regular rhythm Heart sounds: S1 normal heart sound present and S2 normal heart sound present GI Inspection: Yes normal to inspection Palpation (GI): No hepatosplenomegaly present Skin General skin exam: no rashes or lesions noted Extrem General: Yes no clubbing, cyanosis or edema Assessment and Plan Assessment & Plan (1) Diabetes mellitus with coincident hypertension: Code(s): E11.9 - Type 2 diabetes mellitus without complications; I10 - Essential (primary) hypertension Plan: stable; same rx (2) Hypertension: Code(s): I10 - Essential (primary) hypertension Plan: stable; same rx (3) Asthma: Code(s): J45.909 - Unspecified asthma, uncomplicated Plan: stable same rx Orders: Orders Hemoglobin A1c Today R73.9 - Hyperglycemia, unspecified Lipid Panel Today E78.5 - Hyperlipidemia, unspecified Glucose Fasting Today R73.9 - Hyperglycemia, unspecified Medications: Refilled glimepiride 1 mg PO DAILY 90 tabs 7RF Coding Level of Care Code Est Pt Level 4 (38036) Diagnoses Diabetes mellitus with coincident hypertension E11.9; I10 Hypertension I10 Asthma J45.909
== END 2023-07-25 09:00 | disposition home or self-care (01) ==
PROVIDERS: PCP Internal Medicine; Visit Provider Internal Medicine
DX: E11.9 Type 2 diabetes mellitus without complications (principal); I10 Essential (primary) hypertension; J45.909 Unspecified asthma, uncomplicated
CPT/HCPCS: 99214

== ENCOUNTER 2023-08-12 15:14 | Outpatient (AMB) | payer MEDICARE, OTHER, SELFPAY ==
--- NOTE | 2023-08-12 15:22 | MHC.OFFVISCO ---
Intake Intake Visit Reasons: Anticoagulation Allergies nicotine Allergy (Intermediate, Verified 08/12/23 15:17) Rash fish derived [FISH] Allergy (Unknown, Verified 08/12/23 15:17) ANGIOEDEMA tamsulosin [Flomax] Adverse Reaction (Intermediate, Verified 08/12/23 15:17) nightmares Medication List - Last Reconciled 08/12/23 by Olimpia Enriquez RN albuterol sulfate mg inhalation Q6H PRN albuterol sulfate 90 mcg/actuation inhalation azithromycin 250 mg PO DIRECTED blood sugar diagnostic (FreeStyle Lite Strips) daily blood-glucose meter (FreeStyle [place] Lite kit) As directed [custom heat molded multidensity innersoles wear 3 pairs of custom heat molded multidensity innersoles wear] docusate sodium (Stool Softener) 100 mg PO DAILY [extra depth orthopedic shoes with 3 pairs of custom heat molded multidensity innersoles wear] fluticasone propionate 50 mcg/actuation 1 spray intranasal DAILY yrnvztylfew-caiilcpjg-wlqikmdu 100-62.5-25 mcg (Trelegy Ellipta) 1 ea inhalation DAILY furosemide 40 mg PO QAM glimepiride 1 mg PO DAILY hydrocortisone 2.5% appl topical lancets (FreeStyle Lancets) test daily metformin 1,000 mg PO BID metoprolol succinate ER 50 mg PO DAILY omeprazole 40 mg PO DAILY oxybutynin chloride ER 20 mg PO QAM polyethylene glycol 3350 (Miralax) 17 grams PO DAILY prednisone mg PO triamcinolone acetonide 0.1% 1 appl topical BID-TID valsartan 40 mg PO BID vitamins A,C,U-deqz-qdakzr 2,148 mcg-113 mg-45 mg-17.4mg (PreserVision AREDS) 1 tab PO BID warfarin 7.5 mg See Protocol PO DAILY MDD 1.5 tablets daily Nursing Note INR 3.4-? out of therapeutic range of 2-3 Medications and supplements reviewed Patient status: pt with c.o bilat knee pain Medications or supplements: no changes, taking prn tylenol pt aware large amounts of tylenol will raise inr, to increase greens Diet: same Denies any signs and symptoms of bleeding or clotting or unusual bruising Bleeding, bruising, clotting discussed Nutritional guidance given: eat greens to lower, no reds for 2 days Dose: 7.5mg today and tomm then cont reg 7.5mg x 3, 11.25mg x 4 F/U INR Date : ? 2 weeks Patient verbalizing understanding of instructions given. Anti-Coag Initial Assessment Social Hx Patient Tobacco Use Status: Former Tobacco user Tobacco use type: Cigarette alcohol intake: current Alcohol intake frequency: holidays/special occasions only Cardiovascular Hx: HTN, CHF and Cardiomyopathy Lung Disease HX: Asthma, COPD and DVT/PE Endocrine Hx: Diabetes Blood Disorder Hx: Other GI Hx: Other Cancer HX: No Coding Level of Care Code Est Patient Level 1 Diagnoses Current use of anticoagulant therapy Z79.01 Assessment & Plan Assessment & Plan (1) Current use of anticoagulant therapy: Code(s): Z79.01 - alf (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
[2023-08-12 15:23] LABS: Prothrombin Time Whole Bld POC 41.1 sec (11.1-13.5); ~PT, ~INR - Anti Coag Clinic 3.4 (0.9-1.1)
== END 2023-08-12 15:31 | disposition home or self-care (01) ==
LOC: HO.ACS 15:14
PROVIDERS: PCP Internal Medicine; Visit Provider Internal Medicine
DX: Z79.01 Long term (current) use of anticoagulants (principal)

== ENCOUNTER → 2023-08-12 15:14 | Outpatient (BNVA) | payer MEDICARE, OTHER, SELFPAY | PROVIDERS: PCP Internal Medicine; Visit Provider Internal Medicine | DX: I26.99 Other pulmonary embolism without acute cor pulmonale (principal); Z79.01 Long term (current) use of anticoagulants; Z51.81 Encounter for therapeutic drug level monitoring | CPT/HCPCS: 85610; 99211 ==

== ENCOUNTER 2023-08-26 15:20 | Outpatient (AMB) | payer MEDICARE, OTHER, SELFPAY ==
--- NOTE | 2023-08-26 15:23 | MHC.OFFVISCO ---
Intake Intake Visit Reasons: Anticoagulation Allergies nicotine Allergy (Intermediate, Verified 08/26/23 15:21) Rash fish derived [FISH] Allergy (Unknown, Verified 08/26/23 15:21) ANGIOEDEMA tamsulosin [Flomax] Adverse Reaction (Intermediate, Verified 08/26/23 15:21) nightmares Medication List - Last Reconciled 08/26/23 by Olimpia Enriquez RN albuterol sulfate mg inhalation Q6H PRN albuterol sulfate 90 mcg/actuation inhalation azithromycin 250 mg PO DIRECTED blood sugar diagnostic (FreeStyle Lite Strips) daily blood-glucose meter (FreeStyle [place] Lite kit) As directed [custom heat molded multidensity innersoles wear 3 pairs of custom heat molded multidensity innersoles wear] docusate sodium (Stool Softener) 100 mg PO DAILY [extra depth orthopedic shoes with 3 pairs of custom heat molded multidensity innersoles wear] fluticasone propionate 50 mcg/actuation 1 spray intranasal DAILY uiteiowredt-hrhasgpjl-ufqpfgcz 100-62.5-25 mcg (Trelegy Ellipta) 1 ea inhalation DAILY furosemide 40 mg PO QAM glimepiride 1 mg PO DAILY hydrocortisone 2.5% appl topical lancets (FreeStyle Lancets) test daily metformin 1,000 mg PO BID metoprolol succinate ER 50 mg PO DAILY omeprazole 40 mg PO DAILY oxybutynin chloride ER 20 mg PO QAM polyethylene glycol 3350 (Miralax) 17 grams PO DAILY prednisone mg PO triamcinolone acetonide 0.1% 1 appl topical BID-TID valsartan 40 mg PO BID vitamins A,C,O-vfqv-eruolk 2,148 mcg-113 mg-45 mg-17.4mg (PreserVision AREDS) 1 tab PO BID warfarin 7.5 mg See Protocol PO DAILY MDD 1.5 tablets daily Nursing Note INR: 2.7- in therapeutic range of 2-3 Medications and supplements reviewed- no changes No changes in health, diet, medications, or supplements, Denies any signs and symptoms of bleeding or bruising or clotting. Bleeding, bruising, clotting discussed Nutritional guidance given Dose: 7.5mg x 3, 11.25mg x 4 F/U INR: 2 weeks Patient verbalizes understanding of instructions given Anti-Coag Initial Assessment Social Hx Patient Tobacco Use Status: Former Tobacco user Tobacco use type: Cigarette alcohol intake: current Alcohol intake frequency: holidays/special occasions only Cardiovascular Hx: HTN, CHF and Cardiomyopathy Lung Disease HX: Asthma, COPD and DVT/PE Endocrine Hx: Diabetes Blood Disorder Hx: Other GI Hx: Other Cancer HX: No Coding Level of Care Code Est Patient Level 1 Diagnoses Current use of anticoagulant therapy Z79.01 Assessment & Plan Assessment & Plan (1) Current use of anticoagulant therapy: Code(s): Z79.01 - 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
[2023-08-26 15:24] LABS: Prothrombin Time Whole Bld POC 32.2 sec (11.1-13.5); ~PT, ~INR - Anti Coag Clinic 2.7 (0.9-1.1)
== END 2023-08-26 15:29 | disposition home or self-care (01) ==
LOC: HO.ACS 15:20
PROVIDERS: PCP Internal Medicine; Visit Provider Internal Medicine
DX: Z79.01 Long term (current) use of anticoagulants (principal)

== ENCOUNTER → 2023-08-26 15:20 | Outpatient (BNVA) | payer MEDICARE, OTHER, SELFPAY | PROVIDERS: PCP Internal Medicine; Visit Provider Internal Medicine | DX: I26.99 Other pulmonary embolism without acute cor pulmonale (principal); Z79.01 Long term (current) use of anticoagulants; Z51.81 Encounter for therapeutic drug level monitoring | CPT/HCPCS: 85610; 99211 ==

== ENCOUNTER 2023-09-09 15:14 | Outpatient (AMB) | payer MEDICARE, OTHER, SELFPAY ==
--- NOTE | 2023-09-09 15:25 | MHC.OFFVISCO ---
Intake Intake Visit Reasons: Anticoagulation Allergies nicotine Allergy (Intermediate, Verified 09/09/23 15:15) Rash fish derived [FISH] Allergy (Unknown, Verified 09/09/23 15:15) ANGIOEDEMA tamsulosin [Flomax] Adverse Reaction (Intermediate, Verified 09/09/23 15:15) nightmares Medication List - Last Reconciled 09/09/23 by Marie Pollock RN albuterol sulfate mg inhalation Q6H PRN albuterol sulfate 90 mcg/actuation inhalation blood sugar diagnostic (FreeStyle Lite Strips) daily blood-glucose meter (FreeStyle [place] Lite kit) As directed [custom heat molded multidensity innersoles wear 3 pairs of custom heat molded multidensity innersoles wear] docusate sodium (Stool Softener) 100 mg PO DAILY [extra depth orthopedic shoes with 3 pairs of custom heat molded multidensity innersoles wear] fluticasone propionate 50 mcg/actuation 1 spray intranasal DAILY rwawziiagyf-wbpudhgtc-uevzhdhd 100-62.5-25 mcg (Trelegy Ellipta) 1 ea inhalation DAILY furosemide 40 mg PO QAM glimepiride 1 mg PO DAILY hydrocortisone 2.5% appl topical lancets (FreeStyle Lancets) test daily metformin 1,000 mg PO BID metoprolol succinate ER 50 mg PO DAILY omeprazole 40 mg PO DAILY oxybutynin chloride ER 20 mg PO QAM polyethylene glycol 3350 (Miralax) 17 grams PO DAILY triamcinolone acetonide 0.1% 1 appl topical BID-TID valsartan 40 mg PO BID vitamins A,C,M-toua-ppwpni 2,148 mcg-113 mg-45 mg-17.4mg (PreserVision AREDS) 1 tab PO BID warfarin 7.5 mg See Protocol PO DAILY MDD 1.5 tablets daily Nursing Note Amb to ACS feeling well Medications and supplements reviewed No changes in health, diet, medications, or supplements Denies any unusual signs and symptoms of bruising, bleeding Denies any new Chest pain, SOB, or clotting INR: 2.9 in therapeutic range Nutritional guidance given: balance greens and reds in diet, be consistent Dose: continue usual dosing; 7.5mg x 3 days and 11.25mg x 4 days F/U INR: 3 weeks Patient verbalizes understanding of instructions given with accurate read back/ teach back of dosing Anti-Coag Initial Assessment Social Hx Patient Tobacco Use Status: Former Tobacco user Tobacco use type: Cigarette alcohol intake: current Alcohol intake frequency: holidays/special occasions only Cardiovascular Hx: HTN, CHF and Cardiomyopathy Lung Disease HX: Asthma, COPD and DVT/PE Endocrine Hx: Diabetes Blood Disorder Hx: Other GI Hx: Other Cancer HX: No Questionnaires HAS-BLED Does the patient had uncontrolled Hypertension?: No Does the patient have renal disease?: No Does the patient have liver disease?: Yes Does the patient have a history of stroke?: No Has the patient had major bleeding or predisposition to bleeding?: No Does the patient have labile INRs?: No Is the patient over 65 years of age?: Yes Is the patient on medications that gives them a predisposition to bleeding?: Yes Does the patient use alcohol?: Yes HAS-BLED Score: 4 CHADSVASC Age: 66-74 Gender: Male Does the patient have a history of CHF?: Yes Does the patient have a history of Hypertension?: Yes Does the patient have a history of Stroke/TIA/Thromboembolism?: Yes Does the patient have a history of Vascular Disease (prior CA, PAD or aortic plaque)?: No Does the patient have a history of Diabetes?: Yes CHADS VACS Score: 6 Darwin Prediction Score Rsk VTE Active Cancer: No Previous VTE, excluding superficial vein thrombosis: Yes Reduced mobility: No Already known Thrombophilic Condition: Yes With-in last month Trauma and/or Surgery: No Elderly 70 year or older: Yes Heart and/or Respiratory Failure: No Acute Myocardial infarction and/or Ischemic Stroke: No Acute Infection and/or Rheumatologic Disorder: No Obesity (BMI 30 or greater): No Ongoing Hormonal Treatment: No Score: 7 Darwin Score less than 4; Low Risk of VTE Darwin Score 4 or greater; High Risk of VTE Coding Level of Care Code Est Patient Level 1 Diagnoses Current use of anticoagulant therapy Z79.01 Time Spent (min) 15 Results AMB INR Fingerstick AMB INR Fingerstick 2.9 Last Edit by Marie Pollock RN on 09/09/23 15:24 interface failure Assessment & Plan Assessment & Plan (1) Current use of anticoagulant therapy: Code(s): Z79.01 - [facility] (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
[2023-09-10 08:16] LABS: Prothrombin Time Whole Bld POC 34.8 sec (11.1-13.5); ~PT, ~INR - Anti Coag Clinic 2.9 (0.9-1.1)
== END 2023-09-09 16:24 | disposition home or self-care (01) ==
LOC: HO.ACS 15:14
PROVIDERS: PCP Internal Medicine; Visit Provider Internal Medicine
DX: Z79.01 Long term (current) use of anticoagulants (principal)

== ENCOUNTER → 2023-09-09 15:14 | Outpatient (BNVA) | payer MEDICARE, OTHER, SELFPAY | PROVIDERS: PCP Internal Medicine; Visit Provider Internal Medicine | DX: I26.99 Other pulmonary embolism without acute cor pulmonale (principal); Z79.01 Long term (current) use of anticoagulants; Z51.81 Encounter for therapeutic drug level monitoring | CPT/HCPCS: 85610; 99211 ==

== ENCOUNTER 2023-09-23 15:12 | Outpatient (AMB) | payer MEDICARE, OTHER, SELFPAY ==
[2023-09-23 15:18] LABS: Prothrombin Time Whole Bld POC 35.5 sec (11.1-13.5)
--- NOTE | 2023-09-23 15:20 | MHC.OFFVISCO ---
Intake Intake Visit Reasons: Anticoagulation Allergies nicotine Allergy (Intermediate, Verified 09/23/23 15:12) Rash fish derived [FISH] Allergy (Unknown, Verified 09/23/23 15:12) ANGIOEDEMA tamsulosin [Flomax] Adverse Reaction (Intermediate, Verified 09/23/23 15:12) nightmares Medication List - Last Reconciled 09/23/23 by Marie Shaver, RN albuterol sulfate mg inhalation Q6H PRN albuterol sulfate 90 mcg/actuation inhalation blood sugar diagnostic (FreeStyle Lite Strips) daily blood-glucose meter (FreeStyle [place] Lite kit) As directed [custom heat molded multidensity innersoles wear 3 pairs of custom heat molded multidensity innersoles wear] docusate sodium (Stool Softener) 100 mg PO DAILY [extra depth orthopedic shoes with 3 pairs of custom heat molded multidensity innersoles wear] fluticasone propionate 50 mcg/actuation 1 spray intranasal DAILY iepybuuahuq-tmwwynzaj-qddnikln 100-62.5-25 mcg (Trelegy Ellipta) 1 ea inhalation DAILY furosemide 40 mg PO QAM glimepiride 1 mg PO DAILY hydrocortisone 2.5% appl topical lancets (FreeStyle Lancets) test daily metformin 1,000 mg PO BID metoprolol succinate ER 50 mg PO DAILY omeprazole 40 mg PO DAILY oxybutynin chloride ER 20 mg PO QAM polyethylene glycol 3350 (Miralax) 17 grams PO DAILY triamcinolone acetonide 0.1% 1 appl topical BID-TID valsartan 40 mg PO BID vitamins A,C,I-yggr-hzkymm 2,148 mcg-113 mg-45 mg-17.4mg (PreserVision AREDS) 1 tab PO BID warfarin 7.5 mg See Protocol PO DAILY MDD 1.5 tablets daily Nursing Note INR: 3.0 in therapeutic range OF 2-3 Medications and supplements reviewed COMPLETED Z-JOHNIE YESTERDAY, CONTINUE ON PREDNISONE TAPER, WILL COMPLETE TOMORROW (FOR COPD EXAC) No other changes in health, diet, medications, or supplements, Denies any signs and symptoms of bleeding or unusual bruising or clotting. Bleeding, bruising, clotting discussed Nutritional guidance given, have a serving of greens today Dose: decrease tomorrow's dose to 7.5mg (from 11.25mg) and then resume usual dose of 7.5mg X3days and 11.25mg X4days. dose decreased this week for potential rise in INR from delayed response from z-johnie and prednisone F/U INR: 1 week Patient verbalizes understanding of instructions given Anti-Coag Initial Assessment Social Hx Patient Tobacco Use Status: Former Tobacco user Tobacco use type: Cigarette alcohol intake: current Alcohol intake frequency: holidays/special occasions only Cardiovascular Hx: HTN, CHF and Cardiomyopathy Lung Disease HX: Asthma, COPD and DVT/PE Endocrine Hx: Diabetes Blood Disorder Hx: Other GI Hx: Other Cancer HX: No Coding Level of Care Code Est Patient Level 1 Diagnoses Current use of anticoagulant therapy Z79.01 Results AMB INR Fingerstick AMB INR Fingerstick 3.0 Last Edit by Marie Shaver RN on 09/23/23 15:18 INTERFACE DELAY Assessment & Plan Assessment & Plan (1) Current use of anticoagulant therapy: Code(s): Z79.01 - halfway (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
== END 2023-09-23 15:29 | disposition home or self-care (01) ==
LOC: HO.ACS 15:12
PROVIDERS: PCP Internal Medicine; Visit Provider Internal Medicine
DX: Z79.01 Long term (current) use of anticoagulants (principal)

== ENCOUNTER → 2023-09-23 15:12 | Outpatient (BNVA) | payer MEDICARE, OTHER, SELFPAY | PROVIDERS: PCP Internal Medicine; Visit Provider Internal Medicine | DX: I26.99 Other pulmonary embolism without acute cor pulmonale (principal); Z79.01 Long term (current) use of anticoagulants; Z51.81 Encounter for therapeutic drug level monitoring | CPT/HCPCS: 85610; 99211 ==

== ENCOUNTER 2023-09-30 15:19 | Outpatient (AMB) | payer MEDICARE, OTHER, SELFPAY ==
[2023-09-30 15:32] LABS: Prothrombin Time Whole Bld POC 34.1 sec (11.1-13.5); ~PT, ~INR - Anti Coag Clinic 2.8 (0.9-1.1)
--- NOTE | 2023-09-30 15:37 | MHC.OFFVISCO ---
Intake Intake Visit Reasons: Anticoagulation Allergies nicotine Allergy (Intermediate, Verified 09/30/23 15:34) Rash fish derived [FISH] Allergy (Unknown, Verified 09/30/23 15:34) ANGIOEDEMA tamsulosin [Flomax] Adverse Reaction (Intermediate, Verified 09/30/23 15:34) nightmares Medication List - Last Reconciled 09/30/23 by Marie Shaver RN albuterol sulfate mg inhalation Q6H PRN albuterol sulfate 90 mcg/actuation inhalation blood sugar diagnostic (FreeStyle Lite Strips) daily blood-glucose meter (FreeStyle [place] Lite kit) As directed [custom heat molded multidensity innersoles wear 3 pairs of custom heat molded multidensity innersoles wear] docusate sodium (Stool Softener) 100 mg PO DAILY [extra depth orthopedic shoes with 3 pairs of custom heat molded multidensity innersoles wear] fluticasone propionate 50 mcg/actuation 1 spray intranasal DAILY lqbwmwmpokl-wyblsgcin-tvugihrt 100-62.5-25 mcg (Trelegy Ellipta) 1 ea inhalation DAILY furosemide 40 mg PO QAM glimepiride 1 mg PO DAILY hydrocortisone 2.5% appl topical lancets (FreeStyle Lancets) test daily metformin 1,000 mg PO BID metoprolol succinate ER 50 mg PO DAILY omeprazole 40 mg PO DAILY oxybutynin chloride ER 20 mg PO QAM polyethylene glycol 3350 (Miralax) 17 grams PO DAILY triamcinolone acetonide 0.1% 1 appl topical BID-TID valsartan 40 mg PO BID vitamins A,C,C-lctx-pxxoxa 2,148 mcg-113 mg-45 mg-17.4mg (PreserVision AREDS) 1 tab PO BID warfarin 7.5 mg See Protocol PO DAILY MDD 1.5 tablets daily Nursing Note INR: 2.8 in therapeutic range of 2-3 Medications and supplements reviewed No changes in health, diet, medications, or supplements. Pt states he feels well. Denies any signs and symptoms of bleeding or bruising or clotting. Bleeding, bruising, clotting discussed Nutritional guidance given, cont to balance greens and reds. Dose: continue usual dose of 7.5mg X3 days and 11.25mg X4 days F/U INR: 2 weeks Patient verbalizes understanding of instructions given Anti-Coag Initial Assessment Social Hx Patient Tobacco Use Status: Former Tobacco user Tobacco use type: Cigarette alcohol intake: current Alcohol intake frequency: holidays/special occasions only Cardiovascular Hx: HTN, CHF and Cardiomyopathy Lung Disease HX: Asthma, COPD and DVT/PE Endocrine Hx: Diabetes Blood Disorder Hx: Other GI Hx: Other Cancer HX: No Coding Level of Care Code Est Patient Level 1 Diagnoses Current use of anticoagulant therapy Z79.01 Results AMB INR Fingerstick AMB INR Fingerstick 2.8 Last Edit by Marie Shaver RN on 09/30/23 15:27 interface delay Assessment & Plan Assessment & Plan (1) Current use of anticoagulant therapy: Code(s): Z79.01 - snf (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
== END 2023-09-30 15:39 | disposition home or self-care (01) ==
LOC: HO.ACS 15:19
PROVIDERS: PCP Internal Medicine; Visit Provider Internal Medicine
DX: Z79.01 Long term (current) use of anticoagulants (principal)

== ENCOUNTER → 2023-09-30 15:19 | Outpatient (BNVA) | payer MEDICARE, OTHER, SELFPAY | PROVIDERS: PCP Internal Medicine; Visit Provider Internal Medicine | DX: I26.99 Other pulmonary embolism without acute cor pulmonale (principal); Z79.01 Long term (current) use of anticoagulants; Z51.81 Encounter for therapeutic drug level monitoring | CPT/HCPCS: 85610; 99211 ==

== ENCOUNTER 2023-10-17 08:48 | Outpatient (AMB) | payer MEDICARE, OTHER, SELFPAY ==
[2023-10-17 09:02] LABS: Prothrombin Time Whole Bld POC 40.9 sec (11.1-13.5); ~PT, ~INR - Anti Coag Clinic 3.4 (0.9-1.1)
--- NOTE | 2023-10-17 09:07 | MHC.OFFVISCO ---
Intake Intake Visit Reasons: Anticoagulation Allergies nicotine Allergy (Intermediate, Verified 10/17/23 08:56) Rash fish derived [FISH] Allergy (Unknown, Verified 10/17/23 08:56) ANGIOEDEMA tamsulosin [Flomax] Adverse Reaction (Intermediate, Verified 10/17/23 08:56) nightmares Medication List - Last Reconciled 10/17/23 by Yakelin Jenkins RN albuterol sulfate mg inhalation Q6H PRN albuterol sulfate 90 mcg/actuation inhalation azithromycin 250 mg PO DIRECTED blood sugar diagnostic (FreeStyle Lite Strips) daily blood-glucose meter (FreeStyle [place] Lite kit) As directed [custom heat molded multidensity innersoles wear 3 pairs of custom heat molded multidensity innersoles wear] docusate sodium (Stool Softener) 100 mg PO DAILY [extra depth orthopedic shoes with 3 pairs of custom heat molded multidensity innersoles wear] fluticasone propionate 50 mcg/actuation 1 spray intranasal DAILY owsbjumgfrh-tdqjwyzxs-gthrxucy 100-62.5-25 mcg (Trelegy Ellipta) 1 ea inhalation DAILY furosemide 40 mg PO QAM glimepiride 1 mg PO DAILY hydrocortisone 2.5% appl topical lancets (FreeStyle Lancets) test daily metformin 1,000 mg PO BID metoprolol succinate ER 50 mg PO DAILY omeprazole 40 mg PO DAILY oxybutynin chloride ER 20 mg PO QAM polyethylene glycol 3350 (Miralax) 17 grams PO DAILY prednisone mg PO triamcinolone acetonide 0.1% 1 appl topical BID-TID valsartan 40 mg PO BID vitamins A,C,O-qixf-iesmwc 2,148 mcg-113 mg-45 mg-17.4mg (PreserVision AREDS) 1 tab PO BID warfarin 7.5 mg See Protocol PO DAILY MDD 1.5 tablets daily Nursing Note INR: 3.4 ALMOST therapeutic range Medications and supplements reviewed No changes in health, diet, medications, or supplements, Denies any signs and symptoms of bleeding or bruising or clotting. Bleeding, bruising, clotting discussed Nutritional guidance given- REVIEW FOOD LIST WEEKLY - MAKE SURE TO EAT GREENS WEEKLY Dose: 7.5MG X 3DAYS/ 5MG X 4 DAYS F/U INR: 2 WEEKS Patient verbalizes understanding of instructions given Anti-Coag Initial Assessment Social Hx Patient Tobacco Use Status: Former Tobacco user Tobacco use type: Cigarette alcohol intake: current Alcohol intake frequency: holidays/special occasions only Cardiovascular Hx: HTN, CHF and Cardiomyopathy Lung Disease HX: Asthma, COPD and DVT/PE Endocrine Hx: Diabetes Blood Disorder Hx: Other GI Hx: Other Cancer HX: No Coding Level of Care Code Est Patient Level 1 Diagnoses Current use of anticoagulant therapy Z79.01 Assessment & Plan Assessment & Plan (1) Current use of anticoagulant therapy: Code(s): Z79.01 - retirement (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
== END 2023-10-17 09:09 | disposition home or self-care (01) ==
LOC: HO.ACS 08:48
PROVIDERS: PCP Internal Medicine; Visit Provider Internal Medicine
DX: Z79.01 Long term (current) use of anticoagulants (principal)

== ENCOUNTER → 2023-10-17 08:48 | Outpatient (BNVA) | payer MEDICARE, OTHER, SELFPAY | PROVIDERS: PCP Internal Medicine; Visit Provider Internal Medicine | DX: I26.99 Other pulmonary embolism without acute cor pulmonale (principal); Z79.01 Long term (current) use of anticoagulants; Z51.81 Encounter for therapeutic drug level monitoring | CPT/HCPCS: 85610; 99211 ==

== ENCOUNTER 2023-10-24 08:37 | Outpatient (AMB) | payer MEDICARE, OTHER, SELFPAY ==
[2023-10-24 08:41] VITALS: BP 122/60; PULSE 70; O2SAT 96; BMI 34.3
--- NOTE | 2023-10-24 08:41 | MHC.PC.OV ---
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: No Pie Filling Mixer: Not Required per policy Accompanied by: Self / Same As Patient Allergies nicotine Allergy (Intermediate, Verified 10/24/23 08:42) Rash fish derived [FISH] Allergy (Unknown, Verified 10/24/23 08:42) ANGIOEDEMA tamsulosin [Flomax] Adverse Reaction (Intermediate, Verified 10/24/23 08:42) nightmares Medication List - Last Reconciled 10/24/23 by Jonathan Campoverde MD albuterol sulfate mg inhalation Q6H PRN albuterol sulfate 90 mcg/actuation inhalation blood sugar diagnostic (FreeStyle Lite Strips) daily blood-glucose meter (FreeStyle [place] Lite kit) As directed [custom heat molded multidensity innersoles wear 3 pairs of custom heat molded multidensity innersoles wear] docusate sodium (Stool Softener) 100 mg PO DAILY [extra depth orthopedic shoes with 3 pairs of custom heat molded multidensity innersoles wear] fluticasone propionate 50 mcg/actuation 1 spray intranasal DAILY bwncrysycfz-sflkqaxjh-zzsahbqg 100-62.5-25 mcg (Trelegy Ellipta) 1 ea inhalation DAILY furosemide 40 mg PO QAM glimepiride 1 mg PO DAILY hydrocortisone 2.5% appl topical lancets (FreeStyle Lancets) test daily metformin 1,000 mg PO BID metoprolol succinate ER 50 mg PO DAILY omeprazole 40 mg PO DAILY oxybutynin chloride ER 20 mg PO QAM polyethylene glycol 3350 (Miralax) 17 grams PO DAILY prednisone mg PO triamcinolone acetonide 0.1% 1 appl topical BID-TID valsartan 40 mg PO BID vitamins A,C,W-dxjy-nlqser 2,148 mcg-113 mg-45 mg-17.4mg (PreserVision AREDS) 1 tab PO BID warfarin 7.5 mg See Protocol PO DAILY MDD 1.5 tablets daily Tobacco use date assessed: 10/24/23 Fall risk assessment: No Falls in past year Last assessed Fall Risk: 10/24/23 Dental Screening Dental Screen Date: 10/24/23 Did you have a dental visit in the last 12 months?: Yes Did you have a dental problem in the last 6 months where you did not have access to dental care?: No Was dental information given to patient?: Patient has dentist HPI 3mth f/u HPI Details DM HTN and asthmac on rx; compliant and doing well [facility] Medical History Severe obesity (BMI 35.0-35.9 with comorbidity) Screening for diabetes mellitus Obesity Hypertension Cardiomyopathy COVID-19 Asthma Surgical History History of surgery History of colonoscopy History of transurethral resection of prostate History of cystoscopy Status post orchiopexy History of eye surgery History of tonsillectomy Family History Father Heart disease Mother Colon cancer Brother No problems noted. Brother No problems noted. Sister No problems noted. Social History Housing: House Alcohol intake: current Alcohol intake frequency: holidays/special occasions only Patient Tobacco Use Status: Former Tobacco user Tobacco use type: Cigarette Years Smoked: 50 e-Cigarette/Vaping Use: Never Used Second Hand Smoke Exposure: Yes service: No Current occupational status: employed and retired Current occupation: retired Cognitive needs: No Hearing needs: No Vision needs: Yes Questionnaire PHQ-9 Over the last 2 weeks, how often have you been bothered by any of the following problems? 1. Little interest or pleasure in doing things: not at all 2. Feeling down, depressed, or hopeless: not at all 3. Trouble falling or staying asleep, or sleeping too much: not at all 4. Feeling tired or having little energy: not at all 5. Poor appetite or overeating: not at all 6. Feeling bad about yourself - or that you are a failure or have let yourself or your family down: not at all 7. Trouble concentrating on things, such as reading the newspaper or watching television: not at all 8. Moving or speaking so slowly that other people could have noticed. Or the opposite - being so fidgety or restless that you have been moving around a lot more than usual: not at all 9. Thoughts that you would be better off or of hurting yourself in some way: not at all Total score: 0 Depression Screening Interpretation: Negative Depression Screening Done: Yes 03458 - PHQ-9 Billing: Yes Source: Developed by Drs. Arnoldo Sarah, Julita Uriostegui, Vega Miller and colleagues, with an educational marisa from [employer]. Thrive Questionnaire Date Thrive assessed: 10/24/23 I am a: Patient What is your living situation today?: I have a steady place to live Within the past 12 months, did the food you bought not last and you didn't have the money to get more?: Never true Within the past 12 months, did you worry whether your food would run out before you got money to buy more?: Never true Do you have trouble paying for medicines?: No Do you have trouble getting transportation to medical appointments?: No Do you have trouble paying your heating and electricity bill?: No Do you have trouble taking care of your child, family member or friend?: No Do you have trouble with day-to-day activities such as bathing, preparing meals, shopping, managing finances, etc.?: No Are you currently unemployed and looking for a job?: No Are you interested in more education?: No Please select the resources that you would like help with: None THRIVE Score: 0 AUDIT C Alcohol Use Questionnaire (AUDIT-C) 1. How often do you have a drink containing alcohol?: Monthly or less 2. How many drinks containing alcohol do you have on a typical day when you are drinking?: 1 or 2 3. How often do you have six or more drinks on one occasion?: Never Total Score: 1 Score Reviewed/Action Taken: Yes CAYDEN-7 AMB Questionnaire CAYDEN-7 Date CAYDEN - 7 assessed: 10/24/23 Feeling nervous, anxious, or on edge: 0 = Not at all Not being able to stop or control worryin = Not at all Worrying too much about different things: 0 = Not at all Trouble relaxin = Not at all Being so restless that it is hard to sit still: 0 = Not at all Becoming easily annoyed or irritable: 0 = Not at all Feeling afraid as if something awful might happen: 0 = Not at all Total CAYDEN-7 score (0-4 normal; 5-9 mild; 10-14 moderate; 15-21 severe): 0 Source: Developed by Drs. Arnoldo Sarah, Julita Uriostegui, Vega Miller and colleagues, with an educational marisa from [employer]. CAYDEN-7 Assessment Billing CAYDEN-7 Assessment Tool: CAYDEN-7 Assessment 42495 Review of Systems Const Denies chills, Denies headache(s) and Denies weight loss ENT Denies headache(s) Card Denies chest pain, Denies syncope, Denies irregular heart rhythm and Denies dyspnea Resp Denies chest congestion, Denies cough and Denies dyspnea GI Denies abdominal pain, Denies change in stool character, Denies nausea and Denies vomiting Musc Denies deformity and Denies joint swelling Neuro Denies syncope and Denies headache(s) Physical exam (Primary Care) Vital Signs: Last Vital Signs Pulse 70 10/24/23 08:41 BP 122/60 10/24/23 08:41 Pulse Ox 96 10/24/23 08:41 Oxygen Delivery Method Room Air 10/24/23 08:41 BMI result Body Mass Index 34.3 Tobacco/Smoking Status: Tobacco use Status Tobacco use date assessed 10/24/23 10/24/23 08:43 Patient Tobacco Use Status Former Tobacco user 10/24/23 08:43 Tobacco use type Cigarette 10/24/23 08:43 e-Cigarette/Vaping Use Never Used 10/24/23 08:43 PHQ-9: PHQ-9 Score PHQ-9: Total score 0 10/24/23 08:55 Depression Screening Interpretation: Negative Thrive Assessment: Date of Thrive Assessment Date Thrive assessed 10/24/23 10/24/23 08:43 Const General: cooperative, comfortable, no acute distress and alert Neck Neck: Yes no lymphadenopathy Thyroid: Thyroid normal Resp Effort & Inspection: normal respiratory effort Auscultation: clear to auscultation bilaterally Percussion: percussion normal Cardio Jugular venous distension: no JVD Palpation: normal PMI Rate: regular rate Rhythm: regular rhythm Heart sounds: S1 normal heart sound present and S2 normal heart sound present GI Inspection: Yes normal to inspection Palpation (GI): No hepatosplenomegaly present Skin General skin exam: no rashes or lesions noted Extrem General: Yes no clubbing, cyanosis or edema Results AMB Hemoglobin A1c AMB Hemoglobin A1c 6.3 % Last Edit by MALCOM Lemus on 10/24/23 08:56 Results Reviewed Results Reviewed: Laboratory Last Values Hgb A1c (Clinic) 6.3 % (4.0-6.0) H 10/24/23 08:43 Assessment and Plan Assessment & Plan (1) Hypertension: Code(s): I10 - Essential (primary) hypertension Plan: stable; samew rx (2) Diabetes mellitus with coincident hypertension: Code(s): E11.9 - Type 2 diabetes mellitus without complications; I10 - Essential (primary) hypertension Plan: stable; do labs (3) COPD (chronic obstructive pulmonary disease): Code(s): J44.9 - Chronic obstructive pulmonary disease, unspecified Qualifiers: COPD type: unspecified COPD Qualified Code(s): J44.9 - Chronic obstructive pulmonary disease, unspecified Plan: stable; same rx Orders: Orders AMB Hemoglobin A1c Today E11.9 - Type 2 diabetes mellitus without complications Glucose Fasting Today R73.9 - Hyperglycemia, unspecified Hemoglobin A1c Today R73.9 - Hyperglycemia, unspecified Lipid Panel Today E78.5 - Hyperlipidemia, unspecified Coding Level of Care Code Est Pt Level 4 (51110) Diagnoses Hypertension I10 Diabetes mellitus with coincident hypertension E11.9; I10 COPD (chronic obstructive pulmonary disease) J44.9 COPD type: unspecified COPD Additional Codes CAYDEN-7 Assessment Billing - CAYDEN-7 Assessment Tool: CAYDEN-7 Assessment [id number] ([id number])
== END 2023-10-24 09:24 | disposition home or self-care (01) ==
PROVIDERS: PCP Internal Medicine; Visit Provider Internal Medicine
DX: I10 Essential (primary) hypertension (principal); E11.9 Type 2 diabetes mellitus without complications; J44.9 Chronic obstructive pulmonary disease, unspecified; Z68.34 Body mass index [BMI] 34.0-34.9, adult
CPT/HCPCS: 83036; 99214

== ENCOUNTER 2023-10-31 08:46 | Outpatient (AMB) | payer MEDICARE, OTHER, SELFPAY ==
[2023-10-31 08:54] LABS: Prothrombin Time Whole Bld POC 36.6 sec (11.1-13.5); ~PT, ~INR - Anti Coag Clinic 3.1 (0.9-1.1)
--- NOTE | 2023-10-31 09:01 | MHC.OFFVISCO ---
Intake Intake Visit Reasons: Anticoagulation Allergies nicotine Allergy (Intermediate, Verified 10/31/23 08:47) Rash fish derived [FISH] Allergy (Unknown, Verified 10/31/23 08:47) ANGIOEDEMA tamsulosin [Flomax] Adverse Reaction (Intermediate, Verified 10/31/23 08:47) nightmares Medication List - Last Reconciled 10/31/23 by Marie Shaver, RN albuterol sulfate mg inhalation Q6H PRN albuterol sulfate 90 mcg/actuation inhalation blood sugar diagnostic (FreeStyle Lite Strips) daily blood-glucose meter (FreeStyle [place] Lite kit) As directed [custom heat molded multidensity innersoles wear 3 pairs of custom heat molded multidensity innersoles wear] docusate sodium (Stool Softener) 100 mg PO DAILY [extra depth orthopedic shoes with 3 pairs of custom heat molded multidensity innersoles wear] fluticasone propionate 50 mcg/actuation 1 spray intranasal DAILY wtloavnvvbu-reucczedy-teywelnp 100-62.5-25 mcg (Trelegy Ellipta) 1 ea inhalation DAILY furosemide 40 mg PO QAM glimepiride 1 mg PO DAILY hydrocortisone 2.5% appl topical lancets (FreeStyle Lancets) test daily metformin 1,000 mg PO BID metoprolol succinate ER 50 mg PO DAILY omeprazole 40 mg PO DAILY oxybutynin chloride ER 20 mg PO QAM polyethylene glycol 3350 (Miralax) 17 grams PO DAILY prednisone mg PO triamcinolone acetonide 0.1% 1 appl topical BID-TID valsartan 40 mg PO BID vitamins A,C,E-yjkv-zatxzr 2,148 mcg-113 mg-45 mg-17.4mg (PreserVision AREDS) 1 tab PO BID warfarin 7.5 mg See Protocol PO DAILY MDD 1.5 tablets daily Nursing Note INR: 3.1 out of therapeutic range of 2-3 Medications and supplements reviewed Pt states has been under increased stress at work No changes in health, medications, or supplements, Pt states his INR as been high and has been struggling to keep having greens. Denies any signs and symptoms of bleeding or bruising or clotting. Bleeding, bruising, clotting discussed Nutritional guidance given to have greens today then balance Dose: weekly dose decreased to 7.5mg X4 days and 11.25mg X3 days F/U INR: 2 weeks Patient verbalizes understanding of instructions given Anti-Coag Initial Assessment Social Hx Patient Tobacco Use Status: Former Tobacco user Tobacco use type: Cigarette alcohol intake: current Alcohol intake frequency: holidays/special occasions only Cardiovascular Hx: HTN, CHF and Cardiomyopathy Lung Disease HX: Asthma, COPD and DVT/PE Endocrine Hx: Diabetes Blood Disorder Hx: Other GI Hx: Other Cancer HX: No Coding Level of Care Code Est Patient Level 1 Diagnoses Current use of anticoagulant therapy Z79.01 Assessment & Plan Assessment & Plan (1) Current use of anticoagulant therapy: Code(s): Z79.01 - snf (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
== END 2023-10-31 09:13 | disposition home or self-care (01) ==
LOC: HO.ACS 08:46
PROVIDERS: PCP Internal Medicine; Visit Provider Internal Medicine
DX: Z79.01 Long term (current) use of anticoagulants (principal)

== ENCOUNTER → 2023-10-31 08:46 | Outpatient (BNVA) | payer MEDICARE, OTHER, SELFPAY | PROVIDERS: PCP Internal Medicine; Visit Provider Internal Medicine | DX: I26.99 Other pulmonary embolism without acute cor pulmonale (principal); Z79.01 Long term (current) use of anticoagulants; Z51.81 Encounter for therapeutic drug level monitoring | CPT/HCPCS: 85610; 99211 ==

== ENCOUNTER 2023-11-11 08:52 | Outpatient (AMB) | payer MEDICARE, OTHER, SELFPAY ==
--- NOTE | 2023-11-11 08:57 | MHC.OFFVISCO ---
Intake Intake Visit Reasons: Anticoagulation Allergies nicotine Allergy (Intermediate, Verified 11/11/23 08:53) Rash fish derived [FISH] Allergy (Unknown, Verified 11/11/23 08:53) ANGIOEDEMA tamsulosin [Flomax] Adverse Reaction (Intermediate, Verified 11/11/23 08:53) nightmares Medication List - Last Reconciled 11/11/23 by Olimpia Enriquez RN albuterol sulfate mg inhalation Q6H PRN albuterol sulfate 90 mcg/actuation inhalation blood sugar diagnostic (FreeStyle Lite Strips) daily blood-glucose meter (FreeStyle [place] Lite kit) As directed [custom heat molded multidensity innersoles wear 3 pairs of custom heat molded multidensity innersoles wear] docusate sodium (Stool Softener) 100 mg PO DAILY [extra depth orthopedic shoes with 3 pairs of custom heat molded multidensity innersoles wear] fluticasone propionate 50 mcg/actuation 1 spray intranasal DAILY mpsgxevykaj-ybuqhgfgi-bbmgflcr 100-62.5-25 mcg (Trelegy Ellipta) 1 ea inhalation DAILY furosemide 40 mg PO QAM glimepiride 1 mg PO DAILY hydrocortisone 2.5% appl topical lancets (FreeStyle Lancets) test daily metformin 1,000 mg PO BID metoprolol succinate ER 50 mg PO DAILY omeprazole 40 mg PO DAILY oxybutynin chloride ER 20 mg PO QAM polyethylene glycol 3350 (Miralax) 17 grams PO DAILY prednisone mg PO triamcinolone acetonide 0.1% 1 appl topical BID-TID valsartan 40 mg PO BID vitamins A,C,E-mwki-ipxezp 2,148 mcg-113 mg-45 mg-17.4mg (PreserVision AREDS) 1 tab PO BID warfarin 7.5 mg See Protocol PO DAILY MDD 1.5 tablets daily Nursing Note INR 3.2-?? out of therapeutic range of 2-3 Medications and supplements reviewed Patient status: pt with increased stress from work Medications or supplements: no changes Diet: same Denies any signs and symptoms of bleeding or clotting or unusual bruising Bleeding, bruising, clotting discussed Nutritional guidance given: eat greens to lower, no reds for 2 days pt feels he can lower with dietary management Dose: recent lowering of weekly dosing- 11.25mg x 3, 7.5mg x 4 F/U INR Date : 2 weeks?? Patient verbalizing understanding of instructions given. 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
[2023-11-11 08:58] LABS: ~PT, ~INR - Anti Coag Clinic 3.2 (0.9-1.1)
== END 2023-11-11 09:04 | disposition home or self-care (01) ==
LOC: HO.ACS 08:52
PROVIDERS: PCP Internal Medicine; Visit Provider Internal Medicine
DX: Z79.01 Long term (current) use of anticoagulants (principal)

== ENCOUNTER → 2023-11-11 08:52 | Outpatient (BNVA) | payer MEDICARE, OTHER, SELFPAY | PROVIDERS: PCP Internal Medicine; Visit Provider Internal Medicine | DX: I26.99 Other pulmonary embolism without acute cor pulmonale (principal); Z79.01 Long term (current) use of anticoagulants; Z51.81 Encounter for therapeutic drug level monitoring | CPT/HCPCS: 85610; 99211 ==

== ENCOUNTER → 2023-11-25 08:43 | Outpatient (BNVA) | payer MEDICARE, OTHER, SELFPAY | PROVIDERS: PCP Internal Medicine; Visit Provider Internal Medicine | DX: I26.99 Other pulmonary embolism without acute cor pulmonale (principal); Z51.81 Encounter for therapeutic drug level monitoring; Z79.01 Long term (current) use of anticoagulants | CPT/HCPCS: 85610; 99211 ==

== ENCOUNTER 2023-12-02 08:49 | Outpatient (AMB) | payer MEDICARE, OTHER, SELFPAY ==
--- NOTE | 2023-12-02 08:55 | MHC.OFFVISCO ---
Intake Intake Visit Reasons: Anticoagulation Allergies nicotine Allergy (Intermediate, Verified 12/02/23 08:51) Rash fish derived [FISH] Allergy (Unknown, Verified 12/02/23 08:51) ANGIOEDEMA tamsulosin [Flomax] Adverse Reaction (Intermediate, Verified 12/02/23 08:51) nightmares Medication List - Last Reconciled 12/02/23 by Olimpia Enriquez RN albuterol sulfate mg inhalation Q6H PRN albuterol sulfate 90 mcg/actuation inhalation blood sugar diagnostic (FreeStyle Lite Strips) daily blood-glucose meter (FreeStyle [place] Lite kit) As directed [custom heat molded multidensity innersoles wear 3 pairs of custom heat molded multidensity innersoles wear] docusate sodium (Stool Softener) 100 mg PO DAILY [extra depth orthopedic shoes with 3 pairs of custom heat molded multidensity innersoles wear] fluticasone propionate 50 mcg/actuation 1 spray intranasal DAILY yopmwulurjg-ipbrlhppe-ozfjnanz 100-62.5-25 mcg (Trelegy Ellipta) 1 ea inhalation DAILY furosemide 40 mg PO QAM glimepiride 1 mg PO DAILY hydrocortisone 2.5% appl topical lancets (FreeStyle Lancets) test daily metformin 1,000 mg PO BID metoprolol succinate ER 50 mg PO DAILY omeprazole 40 mg PO DAILY oxybutynin chloride ER 20 mg PO QAM polyethylene glycol 3350 (Miralax) 17 grams PO DAILY triamcinolone acetonide 0.1% 1 appl topical BID-TID valsartan 40 mg PO BID vitamins A,C,W-meyp-lbqtic 2,148 mcg-113 mg-45 mg-17.4mg (PreserVision AREDS) 1 tab PO BID warfarin 7.5 mg See Protocol PO DAILY MDD 1.5 tablets daily Nursing Note INR: 2.4- in therapeutic range of 2-3 Medications and supplements reviewed No changes in health, diet, medications, or supplements, Denies any signs and symptoms of bleeding or bruising or clotting. Bleeding, bruising, clotting discussed Nutritional guidance given Dose: 7.5mg x 4, 11.25mg x 3 F/U INR: 2 weeks Patient verbalizes understanding of instructions given Anti-Coag Initial Assessment Social Hx Patient Tobacco Use Status: Former Tobacco user Tobacco use type: Cigarette alcohol intake: current Alcohol intake frequency: holidays/special occasions only Cardiovascular Hx: HTN, CHF and Cardiomyopathy Lung Disease HX: Asthma, COPD and DVT/PE Endocrine Hx: Diabetes Blood Disorder Hx: Other GI Hx: Other Cancer HX: No Coding Level of Care Code Est Patient Level 1 Diagnoses Current use of anticoagulant therapy Z79.01 Assessment & Plan Assessment & Plan (1) Current use of anticoagulant therapy: Code(s): 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
[2023-12-02 08:56] LABS: Prothrombin Time Whole Bld POC 29.2 sec (11.1-13.5); ~PT, ~INR - Anti Coag Clinic 2.4 (0.9-1.1)
== END 2023-12-02 09:12 | disposition home or self-care (01) ==
LOC: HO.ACS 08:49
PROVIDERS: PCP Internal Medicine; Visit Provider Internal Medicine
DX: Z79.01 Long term (current) use of anticoagulants (principal)

== ENCOUNTER → 2023-12-02 08:49 | Outpatient (BNVA) | payer MEDICARE, OTHER, SELFPAY | PROVIDERS: PCP Internal Medicine; Visit Provider Internal Medicine | DX: I26.99 Other pulmonary embolism without acute cor pulmonale (principal); Z51.81 Encounter for therapeutic drug level monitoring; Z79.01 Long term (current) use of anticoagulants | CPT/HCPCS: 85610; 99211 ==

== ENCOUNTER 2023-12-16 11:21 | Outpatient (AMB) | payer MEDICARE, OTHER, SELFPAY ==
--- NOTE | 2023-12-16 11:32 | MHC.OFFVISCO ---
Intake Intake Visit Reasons: Anticoagulation Allergies nicotine Allergy (Intermediate, Verified 12/16/23 11:21) Rash fish derived [FISH] Allergy (Unknown, Verified 12/16/23 11:21) ANGIOEDEMA tamsulosin [Flomax] Adverse Reaction (Intermediate, Verified 12/16/23 11:21) nightmares Medication List - Last Reconciled 12/16/23 by Marie Shaver, RN albuterol sulfate mg inhalation Q6H PRN albuterol sulfate 90 mcg/actuation inhalation blood sugar diagnostic (FreeStyle Lite Strips) daily blood-glucose meter (FreeStyle [place] Lite kit) As directed [custom heat molded multidensity innersoles wear 3 pairs of custom heat molded multidensity innersoles wear] docusate sodium (Stool Softener) 100 mg PO DAILY [extra depth orthopedic shoes with 3 pairs of custom heat molded multidensity innersoles wear] fluticasone propionate 50 mcg/actuation 1 spray intranasal DAILY hycycuyzalg-rkiupkhlm-hajnugqd 100-62.5-25 mcg (Trelegy Ellipta) 1 ea inhalation DAILY furosemide 40 mg PO QAM glimepiride 1 mg PO DAILY hydrocortisone 2.5% appl topical lancets (FreeStyle Lancets) test daily metformin 1,000 mg PO BID metoprolol succinate ER 50 mg PO DAILY omeprazole 40 mg PO DAILY polyethylene glycol 3350 (Miralax) 17 grams PO DAILY triamcinolone acetonide 0.1% 1 appl topical BID-TID valsartan 40 mg PO BID vitamins A,C,J-pjgi-coopug 2,148 mcg-113 mg-45 mg-17.4mg (PreserVision AREDS) 1 tab PO BID warfarin 7.5 mg See Protocol PO DAILY MDD 1.5 tablets daily Nursing Note INR: 2.3 in therapeutic range of 2-3 Medications and supplements reviewed: no changes No changes in health, diet, medications, or supplements, Denies any signs and symptoms of bleeding or bruising or clotting. Bleeding, bruising, clotting discussed Nutritional guidance given to continue to balance greens and reds Dose: 7.5mg X 4 days and 11.25mg X 3 days F/U INR: 2 weeks Patient verbalizes understanding of instructions given Anti-Coag Initial Assessment Social Hx Patient Tobacco Use Status: Former Tobacco user Tobacco use type: Cigarette alcohol intake: current Alcohol intake frequency: holidays/special occasions only Cardiovascular Hx: HTN, CHF and Cardiomyopathy Lung Disease HX: Asthma, COPD and DVT/PE Endocrine Hx: Diabetes Blood Disorder Hx: Other GI Hx: Other Cancer HX: No Coding Level of Care Code Est Patient Level 1 Diagnoses Current use of anticoagulant therapy Z79.01 Results AMB INR Fingerstick AMB INR Fingerstick 2.3 Last Edit by Marie Shaver RN on 12/16/23 11:33 Assessment & Plan Assessment & Plan (1) Current use of anticoagulant therapy: Code(s): 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
[2023-12-16 11:40] LABS: Prothrombin Time Whole Bld POC 27.2 sec (11.1-13.5); ~PT, ~INR - Anti Coag Clinic 2.3 (0.9-1.1)
== END 2023-12-16 11:43 | disposition home or self-care (01) ==
LOC: HO.ACS 11:21
PROVIDERS: PCP Internal Medicine; Visit Provider Internal Medicine
DX: Z79.01 Long term (current) use of anticoagulants (principal)

== ENCOUNTER → 2023-12-16 11:21 | Outpatient (BNVA) | payer MEDICARE, OTHER, SELFPAY | PROVIDERS: PCP Internal Medicine; Visit Provider Internal Medicine | DX: I26.99 Other pulmonary embolism without acute cor pulmonale (principal); Z51.81 Encounter for therapeutic drug level monitoring; Z79.01 Long term (current) use of anticoagulants | CPT/HCPCS: 85610; 99211 ==

== ENCOUNTER → 2023-12-30 11:06 | Outpatient (BNVA) | payer MEDICARE, OTHER, SELFPAY | PROVIDERS: PCP Internal Medicine; Visit Provider Internal Medicine | DX: I26.99 Other pulmonary embolism without acute cor pulmonale (principal); Z79.01 Long term (current) use of anticoagulants; Z51.81 Encounter for therapeutic drug level monitoring | CPT/HCPCS: 85610; 99211 ==

== ENCOUNTER → 2024-01-13 09:45 | Outpatient (BNVA) | payer MEDICARE, OTHER, SELFPAY | PROVIDERS: PCP Internal Medicine; Visit Provider Internal Medicine | DX: I26.99 Other pulmonary embolism without acute cor pulmonale (principal); Z79.01 Long term (current) use of anticoagulants; Z51.81 Encounter for therapeutic drug level monitoring | CPT/HCPCS: 85610; 99211 ==

== ENCOUNTER 2024-01-23 06:54 | Outpatient (REF) | payer MEDICARE, OTHER, SELFPAY ==
[2024-01-23 07:49] LABS: Estimated Average Glucose 126 mg/dL
[2024-01-23 08:30] LABS: Cholesterol 191 mg/dL (<200); Glucose Fasting 107 mg/dL (60-99); HDL Cholesterol 41 mg/dL (>40); LDL Cholesterol Calculated 137 mg/dL (<100); Triglycerides 68 mg/dL (<150)
== END 2024-01-23 06:55 | disposition home or self-care (01) ==
LOC: HO.LAB 06:54
PROVIDERS: PCP Internal Medicine; Visit Provider Internal Medicine
DX: R73.9 Hyperglycemia, unspecified (principal); E78.5 Hyperlipidemia, unspecified; I26.99 Other pulmonary embolism without acute cor pulmonale; Z51.81 Encounter for therapeutic drug level monitoring; Z79.01 Long term (current) use of anticoagulants
CPT/HCPCS: 36415; 80061; 82947; 83036; 85610; 99211

== ENCOUNTER 2024-01-23 08:01 | Outpatient (AMB) | payer MEDICARE, OTHER, SELFPAY ==
[2024-01-23 08:31] LABS: Prothrombin Time Whole Bld POC 26.3 sec (11.1-13.5); ~PT, ~INR - Anti Coag Clinic 2.2 (0.9-1.1)
--- NOTE | 2024-01-23 08:39 | MHC.OFFVISCO ---
Intake Intake Visit Reasons: Anticoagulation Allergies nicotine Allergy (Intermediate, Verified 01/23/24 08:25) Rash fish derived [FISH] Allergy (Unknown, Verified 01/23/24 08:25) ANGIOEDEMA tamsulosin [Flomax] Adverse Reaction (Intermediate, Verified 01/23/24 08:25) nightmares Medication List - Last Reconciled 01/23/24 by Marie Shaver, RN albuterol sulfate mg inhalation Q6H PRN albuterol sulfate 90 mcg/actuation inhalation blood sugar diagnostic (FreeStyle Lite Strips) daily blood-glucose meter (FreeStyle [place] Lite kit) As directed [custom heat molded multidensity innersoles wear 3 pairs of custom heat molded multidensity innersoles wear] docusate sodium (Stool Softener) 100 mg PO DAILY [extra depth orthopedic shoes with 3 pairs of custom heat molded multidensity innersoles wear] fluticasone propionate 50 mcg/actuation 1 spray intranasal DAILY hxvjadlpmhw-sijlrhjod-zhwbkzgm 100-62.5-25 mcg (Trelegy Ellipta) 1 ea inhalation DAILY furosemide 40 mg PO QAM glimepiride 1 mg PO DAILY hydrocortisone 2.5% appl topical lancets (FreeStyle Lancets) test daily metformin 1,000 mg PO BID metoprolol succinate ER 50 mg PO DAILY omeprazole 40 mg PO DAILY polyethylene glycol 3350 (Miralax) 17 grams PO DAILY solifenacin 10 mg PO DAILY triamcinolone acetonide 0.1% 1 appl topical BID-TID valsartan 40 mg PO BID vitamins A,C,F-frcm-yridcr 2,148 mcg-113 mg-45 mg-17.4mg (PreserVision AREDS) 1 tab PO BID warfarin 7.5 mg See Protocol PO DAILY MDD 1.5 tablets daily Nursing Note INR: 2.2 in therapeutic range of 2-3 Medications and supplements reviewed No changes in health, diet, medications, or supplements, Denies any signs and symptoms of bleeding or bruising or clotting. Bleeding, bruising, clotting discussed Nutritional guidance given to hold greens today and have a serving of foods from the list that raises the INR. Food list reviewed. Dose: 7.5mg X 4 days and 11.25mg X 3 days F/U INR: 2 weeks Patient verbalizes understanding of instructions given Anti-Coag Initial Assessment Social Hx Patient Tobacco Use Status: Former Tobacco user Tobacco use type: Cigarette alcohol intake: current Alcohol intake frequency: holidays/special occasions only Cardiovascular Hx: HTN, CHF and Cardiomyopathy Lung Disease HX: Asthma, COPD and DVT/PE Endocrine Hx: Diabetes Blood Disorder Hx: Other GI Hx: Other Cancer HX: No Coding Level of Care Code Est Patient Level 1 Diagnoses Current use of anticoagulant therapy Z79.01 Assessment & Plan Assessment & Plan (1) Current use of anticoagulant therapy: Code(s): Z79.01 - 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
== END 2024-01-23 08:42 | disposition home or self-care (01) ==
PROVIDERS: PCP Internal Medicine; Visit Provider Internal Medicine
DX: Z79.01 Long term (current) use of anticoagulants (principal)

== ENCOUNTER 2024-01-26 08:22 | Outpatient (AMB) | payer MEDICARE, OTHER, SELFPAY ==
[2024-01-26 08:39] VITALS: BP 130/62; PULSE 70; O2SAT 96; BMI 35.7
--- NOTE | 2024-01-26 08:39 | MHC.PC.OV ---
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 Supervisor: Not Required per policy Accompanied by: Self / Same As Patient Allergies nicotine Allergy (Intermediate, Verified 01/26/24 08:39) Rash fish derived [FISH] Allergy (Unknown, Verified 01/26/24 08:39) ANGIOEDEMA tamsulosin [Flomax] Adverse Reaction (Intermediate, Verified 01/26/24 08:39) nightmares Medication List - Last Reconciled 01/26/24 by Jonathan Campoverde MD albuterol sulfate mg inhalation Q6H PRN albuterol sulfate 90 mcg/actuation inhalation blood sugar diagnostic (FreeStyle Lite Strips) daily blood-glucose meter (FreeStyle [place] Lite kit) As directed [custom heat molded multidensity innersoles wear 3 pairs of custom heat molded multidensity innersoles wear] docusate sodium (Stool Softener) 100 mg PO DAILY [extra depth orthopedic shoes with 3 pairs of custom heat molded multidensity innersoles wear] fluticasone propionate 50 mcg/actuation 1 spray intranasal DAILY ehlzkgkkuhp-xqxhrdksa-mhrsvome 100-62.5-25 mcg (Trelegy Ellipta) 1 ea inhalation DAILY furosemide 40 mg PO QAM glimepiride 1 mg PO DAILY hydrocortisone 2.5% appl topical lancets (FreeStyle Lancets) test daily metformin 1,000 mg PO BID metoprolol succinate ER 50 mg PO DAILY omeprazole 40 mg PO DAILY polyethylene glycol 3350 (Miralax) 17 grams PO DAILY solifenacin 10 mg PO DAILY triamcinolone acetonide 0.1% 1 appl topical BID-TID valsartan 40 mg PO BID vitamins A,C,K-ihhc-kkyxqp 2,148 mcg-113 mg-45 mg-17.4mg (PreserVision AREDS) 1 tab PO BID warfarin 7.5 mg See Protocol PO DAILY MDD 1.5 tablets daily Tobacco use date assessed: 10/24/23 Fall risk assessment: No Falls in past year Last assessed Fall Risk: 01/26/24 Dental Screening Dental Screen Date: 10/24/23 HPI 3mth f/u HPI Details COPD; sees pulmonary and referred to rehab [facility] Medical History Severe obesity (BMI 35.0-35.9 with comorbidity) Screening for diabetes mellitus Obesity Hypertension Cardiomyopathy COVID-19 Asthma Surgical History History of surgery History of colonoscopy History of transurethral resection of prostate History of cystoscopy Status post orchiopexy History of eye surgery History of tonsillectomy Family History Father Heart disease Mother Colon cancer Brother No problems noted. Brother No problems noted. Sister No problems noted. Social History Housing: House Alcohol intake: current Alcohol intake frequency: holidays/special occasions only Patient Tobacco Use Status: Former Tobacco user Tobacco use type: Cigarette Years Smoked: 50 e-Cigarette/Vaping Use: Never Used Second Hand Smoke Exposure: Yes service: No Current occupational status: employed and retired Current occupation: retired Cognitive needs: No Hearing needs: No Vision needs: Yes Questionnaire Thrive Questionnaire Date Thrive assessed: 10/24/23 CAYDEN-7 AMB Questionnaire CAYDEN-7 Date CAYDEN - 7 assessed: 10/24/23 Source: Developed by Drs. Arnoldo Sarah, Julita Uriostegui, Vega Miller and colleagues, with an educational marisa from [employer]. Review of Systems Const Denies chills, Denies headache(s) and Denies weight loss ENT Denies headache(s) Card Denies chest pain, Denies syncope and Denies irregular heart rhythm GI Denies abdominal pain, Denies change in stool character, Denies nausea and Denies vomiting Musc Denies deformity and Denies joint swelling Neuro Denies syncope and Denies headache(s) Physical exam (Primary Care) Vital Signs: Last Vital Signs Pulse 70 01/26/24 08:39 BP 130/62 01/26/24 08:39 Pulse Ox 96 01/26/24 08:39 Oxygen Delivery Method Room Air 01/26/24 08:39 BMI result Body Mass Index 35.7 Tobacco/Smoking Status: Tobacco use Status Tobacco use date assessed 10/24/23 01/26/24 08:39 Patient Tobacco Use Status Former Tobacco user 01/26/24 08:39 Tobacco use type Cigarette 01/26/24 08:39 e-Cigarette/Vaping Use Never Used 01/26/24 08:39 Thrive Assessment: Date of Thrive Assessment Date Thrive assessed 10/24/23 01/26/24 08:39 Const General: cooperative, comfortable, no acute distress and alert Neck Neck: Yes no lymphadenopathy Thyroid: Thyroid normal Resp Effort & Inspection: normal respiratory effort Auscultation: clear to auscultation bilaterally Percussion: percussion normal Cardio Jugular venous distension: no JVD Palpation: normal PMI Rate: regular rate Rhythm: regular rhythm Heart sounds: S1 normal heart sound present and S2 normal heart sound present GI Inspection: Yes normal to inspection Palpation (GI): No hepatosplenomegaly present Skin General skin exam: no rashes or lesions noted Extrem General: Yes no clubbing, cyanosis or edema Assessment and Plan Assessment & Plan (1) COPD (chronic obstructive pulmonary disease): Code(s): J44.9 - Chronic obstructive pulmonary disease, unspecified Qualifiers: COPD type: unspecified COPD Qualified Code(s): J44.9 - Chronic obstructive pulmonary disease, unspecified Plan: as per pulmonary Orders: Orders Comprehensive [place]. Panel Fast Today Z13.9 - Encounter for screening, unspecified Hemoglobin A1c Today R73.9 - Hyperglycemia, unspecified Lipid Panel Today Z13.220 - Encounter for screening for lipoid disorders Coding Level of Care Code Est Pt Level 3 (18507) Diagnoses COPD (chronic obstructive pulmonary disease) J44.9 COPD type: unspecified COPD
== END 2024-01-26 09:04 | disposition home or self-care (01) ==
PROVIDERS: PCP Internal Medicine; Visit Provider Internal Medicine
DX: J44.9 Chronic obstructive pulmonary disease, unspecified (principal)
CPT/HCPCS: 99213

== ENCOUNTER 2024-02-03 11:17 | Outpatient (AMB) | payer MEDICARE, OTHER, SELFPAY ==
[2024-02-03 11:23] LABS: Prothrombin Time Whole Bld POC 25.4 sec (11.1-13.5); ~PT, ~INR - Anti Coag Clinic 2.1 (0.9-1.1)
--- NOTE | 2024-02-03 11:29 | MHC.OFFVISCO ---
Intake Intake Visit Reasons: Anticoagulation Allergies nicotine Allergy (Intermediate, Verified 02/03/24 11:17) Rash fish derived [FISH] Allergy (Unknown, Verified 02/03/24 11:17) ANGIOEDEMA tamsulosin [Flomax] Adverse Reaction (Intermediate, Verified 02/03/24 11:17) nightmares Medication List - Last Reconciled 02/03/24 by Marie Shaver, RN albuterol sulfate mg inhalation Q6H PRN albuterol sulfate 90 mcg/actuation inhalation blood sugar diagnostic (FreeStyle Lite Strips) daily blood-glucose meter (FreeStyle [place] Lite kit) As directed [custom heat molded multidensity innersoles wear 3 pairs of custom heat molded multidensity innersoles wear] docusate sodium (Stool Softener) 100 mg PO DAILY [extra depth orthopedic shoes with 3 pairs of custom heat molded multidensity innersoles wear] fluticasone propionate 50 mcg/actuation 1 spray intranasal DAILY jtlxfuvpmbh-glwmgdegj-bbqqauxr 100-62.5-25 mcg (Trelegy Ellipta) 1 ea inhalation DAILY furosemide 40 mg PO QAM glimepiride 1 mg PO DAILY hydrocortisone 2.5% appl topical lancets (FreeStyle Lancets) test daily metformin 1,000 mg PO BID metoprolol succinate ER 50 mg PO DAILY omeprazole 40 mg PO DAILY polyethylene glycol 3350 (Miralax) 17 grams PO DAILY solifenacin 10 mg PO DAILY triamcinolone acetonide 0.1% 1 appl topical BID-TID valsartan 40 mg PO BID vitamins A,C,S-jfig-fekyjp 2,148 mcg-113 mg-45 mg-17.4mg (PreserVision AREDS) 1 tab PO BID warfarin 7.5 mg See Protocol PO DAILY MDD 1.5 tablets daily Nursing Note INR: 2.1 in therapeutic range of 2-3 Medications and supplements reviewed No changes in health, diet, medications, or supplements, Denies any signs and symptoms of bleeding or bruising or clotting. Bleeding, bruising, clotting discussed Nutritional guidance given to avoid greens today and tomorrow and to have a serving of foods from the list that raises the INR. Food list reviewed with pt. Dose: 7.5mg X 4 days and 11.25mg X 3 days F/U INR: 2 weeks Patient verbalizes understanding of instructions given Anti-Coag Initial Assessment Social Hx Patient Tobacco Use Status: Former Tobacco user Tobacco use type: Cigarette alcohol intake: current Alcohol intake frequency: holidays/special occasions only Cardiovascular Hx: HTN, CHF and Cardiomyopathy Lung Disease HX: Asthma, COPD and DVT/PE Endocrine Hx: Diabetes Blood Disorder Hx: Other GI Hx: Other Cancer HX: No Coding Level of Care Code Est Patient Level 1 Diagnoses Current use of anticoagulant therapy Z79.01 Assessment & Plan Assessment & Plan (1) Current use of anticoagulant therapy: Code(s): Z79.01 - correction (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
== END 2024-02-03 11:31 | disposition home or self-care (01) ==
LOC: HO.ACS 11:17
PROVIDERS: PCP Internal Medicine; Visit Provider Internal Medicine
DX: Z79.01 Long term (current) use of anticoagulants (principal)

== ENCOUNTER → 2024-02-03 11:17 | Outpatient (BNVA) | payer MEDICARE, OTHER, SELFPAY | PROVIDERS: PCP Internal Medicine; Visit Provider Internal Medicine | DX: I26.99 Other pulmonary embolism without acute cor pulmonale (principal); Z51.81 Encounter for therapeutic drug level monitoring; Z79.01 Long term (current) use of anticoagulants | CPT/HCPCS: 85610; 99211 ==

== ENCOUNTER 2024-02-17 10:53 | Outpatient (AMB) | payer MEDICARE, OTHER, SELFPAY ==
[2024-02-17 11:06] LABS: Prothrombin Time Whole Bld POC 18.7 sec (11.1-13.5); ~PT, ~INR - Anti Coag Clinic 1.6 (0.9-1.1)
--- NOTE | 2024-02-17 11:17 | MHC.OFFVISCO ---
Intake Intake Visit Reasons: Anticoagulation Allergies nicotine Allergy (Intermediate, Verified 02/17/24 11:01) Rash fish derived [FISH] Allergy (Unknown, Verified 02/17/24 11:01) ANGIOEDEMA tamsulosin [Flomax] Adverse Reaction (Intermediate, Verified 02/17/24 11:01) nightmares Medication List - Last Reconciled 02/17/24 by Marie Shaver RN albuterol sulfate mg inhalation Q6H PRN albuterol sulfate 90 mcg/actuation inhalation blood sugar diagnostic (FreeStyle Lite Strips) daily blood-glucose meter (FreeStyle [place] Lite kit) As directed [custom heat molded multidensity innersoles wear 3 pairs of custom heat molded multidensity innersoles wear] docusate sodium (Stool Softener) 100 mg PO DAILY [extra depth orthopedic shoes with 3 pairs of custom heat molded multidensity innersoles wear] fluticasone propionate 50 mcg/actuation 1 spray intranasal DAILY ahecrkmwbji-jhzsurkzo-ffwgvmem 100-62.5-25 mcg (Trelegy Ellipta) 1 ea inhalation DAILY furosemide 40 mg PO QAM glimepiride 1 mg PO DAILY hydrocortisone 2.5% appl topical lancets (FreeStyle Lancets) test daily metformin 1,000 mg PO BID metoprolol succinate ER 50 mg PO DAILY omeprazole 40 mg PO DAILY polyethylene glycol 3350 (Miralax) 17 grams PO DAILY solifenacin 10 mg PO DAILY triamcinolone acetonide 0.1% 1 appl topical BID-TID valsartan 40 mg PO BID vitamins A,C,L-vkjw-oxjuyh 2,148 mcg-113 mg-45 mg-17.4mg (PreserVision AREDS) 1 tab PO BID warfarin 7.5 mg See Protocol PO DAILY MDD 1.5 tablets daily Nursing Note INR 1.6 out of therapeutic range of 2-3 Pt missed a dose of 7.5mg 2 days ago Medications and supplements reviewed Patient status: states he has to use his inhaler more with the high humidity States he gets SOB w/exertion and had to park far. No difficulty breathing at [facility]. Pt able to speak full sentences. States his inhaler is in the car and he will stop and take breaks while walking back to his car. Medications or supplements: no changes Diet: usual diet but more cold foods not to cook with the hot and humid weather Denies any signs and symptoms of bleeding or clotting or unusual bruising but has several small bruises on arms Bleeding, bruising, clotting discussed Nutritional guidance given: to avoid greens today Dose: today's dose increased to 11.25mg (7.5mg) then resume usual dose of 7.5mg X 4 days and 11.25mg X 3 days F/U INR Date : 2 weeks?? Patient verbalizing understanding of instructions given. Anti-Coag Initial Assessment Social Hx Patient Tobacco Use Status: Former Tobacco user Tobacco use type: Cigarette alcohol intake: current Alcohol intake frequency: holidays/special occasions only Cardiovascular Hx: HTN, CHF and Cardiomyopathy Lung Disease HX: Asthma, COPD and DVT/PE Endocrine Hx: Diabetes Blood Disorder Hx: Other GI Hx: Other Cancer HX: No Coding Level of Care Code Est Patient Level 1 Diagnoses Current use of anticoagulant therapy Z79.01 Assessment & Plan Assessment & Plan (1) Current use of anticoagulant therapy: Code(s): Z79.01 - longterm (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
== END 2024-02-17 11:25 | disposition home or self-care (01) ==
LOC: HO.ACS 10:53
PROVIDERS: PCP Internal Medicine; Visit Provider Internal Medicine
DX: Z79.01 Long term (current) use of anticoagulants (principal)

== ENCOUNTER → 2024-02-17 10:53 | Outpatient (BNVA) | payer MEDICARE, OTHER, SELFPAY | PROVIDERS: PCP Internal Medicine; Visit Provider Internal Medicine | DX: I26.99 Other pulmonary embolism without acute cor pulmonale (principal); Z79.01 Long term (current) use of anticoagulants; Z51.81 Encounter for therapeutic drug level monitoring | CPT/HCPCS: 85610; 99211 ==

== ENCOUNTER → 2024-02-26 14:47 | Outpatient (BNVA) | payer MEDICARE, OTHER, SELFPAY | PROVIDERS: PCP Internal Medicine; Visit Provider Internal Medicine ==

== ENCOUNTER 2024-02-27 09:40 | Outpatient (AMB) | payer MEDICARE, OTHER, SELFPAY ==
[2024-02-27 09:51] LABS: ~PT, ~INR - Anti Coag Clinic 1.3 (0.9-1.1)
--- NOTE | 2024-02-27 10:19 | MHC.OFFVISCO ---
Intake Intake Visit Reasons: Anticoagulation Allergies nicotine Allergy (Intermediate, Verified 02/27/24 09:45) Rash fish derived [FISH] Allergy (Unknown, Verified 02/27/24 09:45) ANGIOEDEMA tamsulosin [Flomax] Adverse Reaction (Intermediate, Verified 02/27/24 09:45) nightmares Nursing Note INR 1.3?out of therapeutic range of 2-3 Medications and supplements reviewed Patient status: Pt was at [facility] 02/23/24- for right side pain and was diagnosed with a 7 cm kidney stone. Warfarin was on hold for 3 days and restarted yesterday. Pt comes in today and states he will be having a precedure for kidney stone and stent removal on Fri03/03/24. He was informed to hold warfarin for 5 days which means no warfarin today (day 1 of hold). Medications or supplements: no changes Diet: usual Denies any signs and symptoms of bleeding or clotting or unusual bruising Bleeding, bruising, clotting discussed Nutritional guidance given: hold greens after the procedure until seen in [facility] on 03/08/24 Dose: HOLD F/U INR Date : 03/08/24?? Patient verbalizing understanding of instructions given. Message to Dr Santiago to see if lovenox required. Anti-Coag Initial Assessment Social Hx Patient Tobacco Use Status: Former Tobacco user Tobacco use type: Cigarette alcohol intake: current Alcohol intake frequency: holidays/special occasions only Cardiovascular Hx: HTN, CHF and Cardiomyopathy Lung Disease HX: Asthma, COPD and DVT/PE Endocrine Hx: Diabetes Blood Disorder Hx: Other GI Hx: Other Cancer HX: No Coding Level of Care Code Est Patient Level 2 Diagnoses Current use of anticoagulant therapy Z79.01 Assessment & Plan Assessment & Plan (1) Current use of anticoagulant therapy: Code(s): Z79.01 - joint terminal attack controller (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
== END 2024-02-27 10:27 | disposition home or self-care (01) ==
LOC: HO.ACS 09:40
PROVIDERS: PCP Internal Medicine; Visit Provider Internal Medicine
DX: Z79.01 Long term (current) use of anticoagulants (principal)

== ENCOUNTER → 2024-02-27 09:40 | Outpatient (BNVA) | payer MEDICARE, OTHER, SELFPAY | PROVIDERS: PCP Internal Medicine; Visit Provider Internal Medicine | DX: I26.99 Other pulmonary embolism without acute cor pulmonale (principal); Z79.01 Long term (current) use of anticoagulants; Z51.81 Encounter for therapeutic drug level monitoring | CPT/HCPCS: 85610; 99212 ==

== ENCOUNTER 2024-03-08 11:23 | Outpatient (AMB) | payer MEDICARE, OTHER, SELFPAY ==
--- NOTE | 2024-03-08 11:31 | MHC.OFFVISCO ---
Intake Intake Visit Reasons: Anticoagulation Allergies nicotine Allergy (Intermediate, Verified 03/08/24 11:25) Rash fish derived [FISH] Allergy (Unknown, Verified 03/08/24 11:25) ANGIOEDEMA tamsulosin [Flomax] Adverse Reaction (Intermediate, Verified 03/08/24 11:25) nightmares Medication List - Last Reconciled 03/08/24 by Olimpia Enriquez RN albuterol sulfate mg inhalation Q6H PRN albuterol sulfate 90 mcg/actuation inhalation blood sugar diagnostic (FreeStyle Lite Strips) daily blood-glucose meter (FreeStyle [place] Lite kit) As directed [custom heat molded multidensity innersoles wear 3 pairs of custom heat molded multidensity innersoles wear] docusate sodium (Stool Softener) 100 mg PO DAILY [extra depth orthopedic shoes with 3 pairs of custom heat molded multidensity innersoles wear] fluticasone propionate 50 mcg/actuation 1 spray intranasal DAILY czcsaxpvtxq-zwoxaoxex-zbbzfyvq 100-62.5-25 mcg (Trelegy Ellipta) 1 ea inhalation DAILY furosemide 40 mg PO QAM glimepiride 1 mg PO DAILY hydrocortisone 2.5% appl topical lancets (FreeStyle Lancets) test daily metformin 1,000 mg PO BID metoprolol succinate ER 50 mg PO DAILY omeprazole 40 mg PO DAILY polyethylene glycol 3350 (Miralax) 17 grams PO DAILY solifenacin 10 mg PO DAILY triamcinolone acetonide 0.1% 1 appl topical BID-TID valsartan 40 mg PO BID vitamins A,C,T-hhfp-ylxuab 2,148 mcg-113 mg-45 mg-17.4mg (PreserVision AREDS) 1 tab PO BID warfarin 7.5 mg See Protocol PO DAILY MDD 1.5 tablets daily Nursing Note INR 1.9-?? out of therapeutic range of 2-3 Medications and supplements reviewed Patient status: [facility] temp 105. pt states was admitted with uti pt d/c from hosp yesterday pt states received IV antibiotics Medications or supplements: pt starting antibiotic today- will call acs with name of med Diet: same Denies any signs and symptoms of bleeding or clotting or unusual bruising Bleeding, bruising, clotting discussed Nutritional guidance given: no greens today Dose: cont reg dosing 11.25mg x 3, 7.5mg x 4 F/U INR Date : 1 week?? Patient verbalizing understanding of instructions given. pt states stent removal on friday this week and does not need to hold warfarin per urologist, pt will ? inr prior Anti-Coag Initial Assessment Social Hx Patient Tobacco Use Status: Former Tobacco user Tobacco use type: Cigarette alcohol intake: current Alcohol intake frequency: holidays/special occasions only Cardiovascular Hx: HTN, CHF and Cardiomyopathy Lung Disease HX: Asthma, COPD and DVT/PE Endocrine Hx: Diabetes Blood Disorder Hx: Other GI Hx: Other Cancer HX: No Coding Level of Care Code Est Patient Level 1 Diagnoses Current use of anticoagulant therapy Z79.01 Assessment & Plan Assessment & Plan (1) Current use of anticoagulant therapy: Code(s): Z79.01 - residential (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
[2024-03-08 11:32] LABS: Prothrombin Time Whole Bld POC 23.2 sec (11.1-13.5); ~PT, ~INR - Anti Coag Clinic 1.9 (0.9-1.1)
== END 2024-03-08 11:40 | disposition home or self-care (01) ==
LOC: HO.ACS 11:23
PROVIDERS: PCP Internal Medicine; Visit Provider Internal Medicine
DX: Z79.01 Long term (current) use of anticoagulants (principal)

== ENCOUNTER → 2024-03-08 11:23 | Outpatient (BNVA) | payer MEDICARE, OTHER, SELFPAY | PROVIDERS: PCP Internal Medicine; Visit Provider Internal Medicine | DX: I26.99 Other pulmonary embolism without acute cor pulmonale (principal); Z79.01 Long term (current) use of anticoagulants; Z51.81 Encounter for therapeutic drug level monitoring | CPT/HCPCS: 85610; 99211 ==

== ENCOUNTER → 2024-03-12 10:19 | Outpatient (BNVA) | payer MEDICARE, OTHER, SELFPAY | PROVIDERS: PCP Internal Medicine; Visit Provider Internal Medicine | DX: I26.99 Other pulmonary embolism without acute cor pulmonale (principal); Z79.01 Long term (current) use of anticoagulants; Z51.81 Encounter for therapeutic drug level monitoring | CPT/HCPCS: 85610; 99211 ==

== ENCOUNTER 2024-03-26 10:45 | Outpatient (AMB) | payer MEDICARE, OTHER, SELFPAY ==
[2024-03-26 11:02] LABS: Prothrombin Time Whole Bld POC 28.5 sec (11.1-13.5); ~PT, ~INR - Anti Coag Clinic 2.4 (0.9-1.1)
--- NOTE | 2024-03-26 11:08 | MHC.OFFVISCO ---
Intake Intake Visit Reasons: Anticoagulation Allergies nicotine Allergy (Intermediate, Verified 03/26/24 10:57) Rash fish derived [FISH] Allergy (Unknown, Verified 03/26/24 10:57) ANGIOEDEMA tamsulosin [Flomax] Adverse Reaction (Intermediate, Verified 03/26/24 10:57) nightmares Medication List - Last Reconciled 03/26/24 by Marie Shaver RN albuterol sulfate mg inhalation Q6H PRN albuterol sulfate 90 mcg/actuation inhalation blood sugar diagnostic (FreeStyle Lite Strips) daily blood-glucose meter (FreeStyle [place] Lite kit) As directed [custom heat molded multidensity innersoles wear 3 pairs of custom heat molded multidensity innersoles wear] docusate sodium (Stool Softener) 100 mg PO DAILY [extra depth orthopedic shoes with 3 pairs of custom heat molded multidensity innersoles wear] fluticasone propionate 50 mcg/actuation 1 spray intranasal DAILY hfpfxvwlccr-wiqaoonqz-imigqjuq 100-62.5-25 mcg (Trelegy Ellipta) 1 ea inhalation DAILY furosemide 40 mg PO QAM glimepiride 1 mg PO DAILY hydrocortisone 2.5% appl topical lancets (FreeStyle Lancets) test daily metformin 1,000 mg PO BID metoprolol succinate ER 50 mg PO DAILY omeprazole 40 mg PO DAILY polyethylene glycol 3350 (Miralax) 17 grams PO DAILY solifenacin 10 mg PO DAILY triamcinolone acetonide 0.1% 1 appl topical BID-TID valsartan 40 mg PO BID vitamins A,C,S-kqjr-bslpiw 2,148 mcg-113 mg-45 mg-17.4mg (PreserVision AREDS) 1 tab PO BID warfarin 7.5 mg See Protocol PO DAILY MDD 1.5 tablets daily Nursing Note INR: 2.4 in therapeutic range of 2-3 Medications and supplements reviewed No changes in health, diet, medications, or supplements, Denies any signs and symptoms of bleeding or bruising or clotting. Bleeding, bruising, clotting discussed Nutritional guidance given Dose: 11.25mg X3 days and 7.5mg X 4 days F/U INR: 2 weeks Patient verbalizes understanding of instructions given Anti-Coag Initial Assessment Social Hx Patient Tobacco Use Status: Former Tobacco user Tobacco use type: Cigarette alcohol intake: current Alcohol intake frequency: holidays/special occasions only Cardiovascular Hx: HTN, CHF and Cardiomyopathy Lung Disease HX: Asthma, COPD and DVT/PE Endocrine Hx: Diabetes Blood Disorder Hx: Other GI Hx: Other Cancer HX: No Coding Level of Care Code Est Patient Level 1 Diagnoses Current use of anticoagulant therapy Z79.01 Assessment & Plan Assessment & Plan (1) Current use of anticoagulant therapy: Code(s): Z79.01 - nursing home (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
== END 2024-03-26 11:20 | disposition home or self-care (01) ==
LOC: HO.ACS 10:45
PROVIDERS: PCP Internal Medicine; Visit Provider Internal Medicine
DX: Z79.01 Long term (current) use of anticoagulants (principal)

== ENCOUNTER → 2024-03-26 10:45 | Outpatient (BNVA) | payer MEDICARE, OTHER, SELFPAY | PROVIDERS: PCP Internal Medicine; Visit Provider Internal Medicine | DX: I26.99 Other pulmonary embolism without acute cor pulmonale (principal); Z79.01 Long term (current) use of anticoagulants; Z51.81 Encounter for therapeutic drug level monitoring | CPT/HCPCS: 85610; 99211 ==

== ENCOUNTER 2024-04-08 11:01 | Outpatient (AMB) | payer MEDICARE, OTHER, SELFPAY ==
--- NOTE | 2024-04-08 11:12 | MHC.OFFVISCO ---
Intake Intake Visit Reasons: Anticoagulation Allergies nicotine Allergy (Intermediate, Verified 04/08/24 11:08) Rash fish derived [FISH] Allergy (Unknown, Verified 04/08/24 11:08) ANGIOEDEMA tamsulosin [Flomax] Adverse Reaction (Intermediate, Verified 04/08/24 11:08) nightmares Medication List - Last Reconciled 04/08/24 by Olimpia Enriquez RN albuterol sulfate mg inhalation Q6H PRN albuterol sulfate 90 mcg/actuation inhalation blood sugar diagnostic (FreeStyle Lite Strips) daily blood-glucose meter (FreeStyle [place] Lite kit) As directed [custom heat molded multidensity innersoles wear 3 pairs of custom heat molded multidensity innersoles wear] docusate sodium (Stool Softener) 100 mg PO DAILY [extra depth orthopedic shoes with 3 pairs of custom heat molded multidensity innersoles wear] fluticasone propionate 50 mcg/actuation 1 spray intranasal DAILY qswpcngbshq-suinymtta-unxradmj 100-62.5-25 mcg (Trelegy Ellipta) 1 ea inhalation DAILY furosemide 40 mg PO QAM glimepiride 1 mg PO DAILY hydrocortisone 2.5% appl topical lancets (FreeStyle Lancets) test daily metformin 1,000 mg PO BID metoprolol succinate ER 50 mg PO DAILY omeprazole 40 mg PO DAILY polyethylene glycol 3350 (Miralax) 17 grams PO DAILY solifenacin 10 mg PO DAILY triamcinolone acetonide 0.1% 1 appl topical BID-TID valsartan 40 mg PO BID vitamins A,C,M-wffk-ndgvjy 2,148 mcg-113 mg-45 mg-17.4mg (PreserVision AREDS) 1 tab PO BID warfarin 7.5 mg See Protocol PO DAILY MDD 1.5 tablets daily Nursing Note INR: 2.1- in therapeutic range of 2-3 Medications and supplements reviewed- no changes No changes in health, diet, medications, or supplements, Denies any signs and symptoms of bleeding or bruising or clotting. Bleeding, bruising, clotting discussed Nutritional guidance given Dose: 11.25mg x 3, 7.5mg x 4 F/U INR: 3 weeks Patient verbalizes understanding of instructions given upcoming ct scan and labs/prostate Anti-Coag Initial Assessment Social Hx Patient Tobacco Use Status: Former Tobacco user Tobacco use type: Cigarette alcohol intake: current Alcohol intake frequency: holidays/special occasions only Cardiovascular Hx: HTN, CHF and Cardiomyopathy Lung Disease HX: Asthma, COPD and DVT/PE Endocrine Hx: Diabetes Blood Disorder Hx: Other GI Hx: Other Cancer HX: No Coding Level of Care Code Est Patient Level 1 Diagnoses Current use of anticoagulant therapy Z79.01 Assessment & Plan Assessment & Plan (1) Current use of anticoagulant therapy: Code(s): Z79.01 - salvage determiner (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
[2024-04-08 11:14] LABS: Prothrombin Time Whole Bld POC 25.6 sec (11.1-13.5); ~PT, ~INR - Anti Coag Clinic 2.1 (0.9-1.1)
== END 2024-04-08 11:21 | disposition home or self-care (01) ==
LOC: HO.ACS 11:01
PROVIDERS: PCP Internal Medicine; Visit Provider Internal Medicine
DX: Z79.01 Long term (current) use of anticoagulants (principal)

== ENCOUNTER → 2024-04-08 11:01 | Outpatient (BNVA) | payer MEDICARE, OTHER, SELFPAY | PROVIDERS: PCP Internal Medicine; Visit Provider Internal Medicine | DX: I26.99 Other pulmonary embolism without acute cor pulmonale (principal); Z79.01 Long term (current) use of anticoagulants; Z51.81 Encounter for therapeutic drug level monitoring | CPT/HCPCS: 85610; 99211 ==

== ENCOUNTER 2024-04-20 09:33 | Outpatient (AMB) | payer MEDICARE, OTHER, SELFPAY ==
--- NOTE | 2024-04-20 09:40 | MHC.OFFVISCO ---
Intake Intake Visit Reasons: Anticoagulation Allergies nicotine Allergy (Intermediate, Verified 04/20/24 09:34) Rash fish derived [FISH] Allergy (Unknown, Verified 04/20/24 09:34) ANGIOEDEMA tamsulosin [Flomax] Adverse Reaction (Intermediate, Verified 04/20/24 09:34) nightmares Medication List - Last Reconciled 04/20/24 by Olimpia Enriquez RN albuterol sulfate mg inhalation Q6H PRN albuterol sulfate 90 mcg/actuation inhalation blood sugar diagnostic (FreeStyle Lite Strips) daily blood-glucose meter (FreeStyle [place] Lite kit) As directed [custom heat molded multidensity innersoles wear 3 pairs of custom heat molded multidensity innersoles wear] docusate sodium (Stool Softener) 100 mg PO DAILY [extra depth orthopedic shoes with 3 pairs of custom heat molded multidensity innersoles wear] fluticasone propionate 50 mcg/actuation 1 spray intranasal DAILY ovbdeleuzbh-ffrxoudmj-qyzehgrp 100-62.5-25 mcg (Trelegy Ellipta) 1 ea inhalation DAILY furosemide 40 mg PO QAM glimepiride 1 mg PO DAILY hydrocortisone 2.5% appl topical lancets (FreeStyle Lancets) test daily levofloxacin 750 mg PO DAILY metformin 1,000 mg PO BID metoprolol succinate ER 50 mg PO DAILY omeprazole 40 mg PO DAILY polyethylene glycol 3350 (Miralax) 17 grams PO DAILY solifenacin 10 mg PO DAILY sulfamethoxazole-trimethoprim 800-160 mg 1 tab PO BID triamcinolone acetonide 0.1% 1 appl topical BID-TID valsartan 40 mg PO BID vitamins A,C,L-osop-wsybpl 2,148 mcg-113 mg-45 mg-17.4mg (PreserVision AREDS) 1 tab PO BID warfarin 7.5 mg See Protocol PO DAILY MDD 1.5 tablets daily Nursing Note INR 4.0-?? out of therapeutic range of 2-3 Medications and supplements reviewed Patient status: pt with recent inpatient stay [facility]- discharged friday04/17/24 - pt states UTI and stool infection pt states took warfarin 7.5mg 7.5mg x 04/15/24, 04/16/24, 04/17/24, 04/18/24, 11.25mg on 04/19/14 Medications or supplements: pt on bactrim ds bid for 5 days, levofloxacin 750mg dly x 10 days- pt states started on friday04/18/24- both can raise inr per micromedex Diet: appetite is good pt states loose stool this am- instructed to report to pcp if nec Denies any signs and symptoms of bleeding or clotting or unusual bruising Bleeding, bruising, clotting discussed Nutritional guidance given: eat dark cooked greens while on antibiotics Dose: hold today- reduce tomm to 7.5mg and thur reduce to 3.75mg F/U INR Date : fri04/23/24? Patient verbalizing understanding of instructions given. Anti-Coag Initial Assessment Social Hx Patient Tobacco Use Status: Former Tobacco user Tobacco use type: Cigarette alcohol intake: current Alcohol intake frequency: holidays/special occasions only Cardiovascular Hx: HTN, CHF and Cardiomyopathy Lung Disease HX: Asthma, COPD and DVT/PE Endocrine Hx: Diabetes Blood Disorder Hx: Other GI Hx: Other Cancer HX: No Coding Level of Care Code Est Patient Level 2 Diagnoses Current use of anticoagulant therapy Z79.01 Assessment & Plan Assessment & Plan (1) Current use of anticoagulant therapy: Code(s): Z79.01 - FDC (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
[2024-04-20 09:41] LABS: Prothrombin Time Whole Bld POC 47.6 sec (11.1-13.5)
== END 2024-04-20 09:59 | disposition home or self-care (01) ==
LOC: HO.ACS 09:33
PROVIDERS: PCP Internal Medicine; Visit Provider Internal Medicine
DX: Z79.01 Long term (current) use of anticoagulants (principal)

== ENCOUNTER → 2024-04-20 09:33 | Outpatient (BNVA) | payer MEDICARE, OTHER, SELFPAY | PROVIDERS: PCP Internal Medicine; Visit Provider Internal Medicine | DX: I26.99 Other pulmonary embolism without acute cor pulmonale (principal); Z79.01 Long term (current) use of anticoagulants; Z51.81 Encounter for therapeutic drug level monitoring | CPT/HCPCS: 85610; 99212 ==

== ENCOUNTER 2024-04-23 11:03 | Outpatient (AMB) | payer MEDICARE, OTHER, SELFPAY ==
[2024-04-23 11:28] LABS: Prothrombin Time Whole Bld POC 19.2 sec (11.1-13.5); ~PT, ~INR - Anti Coag Clinic 1.6 (0.9-1.1)
--- NOTE | 2024-04-23 11:33 | MHC.OFFVISCO ---
Intake Intake Visit Reasons: Anticoagulation Allergies nicotine Allergy (Intermediate, Verified 04/23/24 11:12) Rash fish derived [FISH] Allergy (Unknown, Verified 04/23/24 11:12) ANGIOEDEMA tamsulosin [Flomax] Adverse Reaction (Intermediate, Verified 04/23/24 11:12) nightmares Medication List - Last Reconciled 04/23/24 by Marie Shaver RN albuterol sulfate mg inhalation Q6H PRN albuterol sulfate 90 mcg/actuation inhalation blood sugar diagnostic (FreeStyle Lite Strips) daily blood-glucose meter (FreeStyle [place] Lite kit) As directed [custom heat molded multidensity innersoles wear 3 pairs of custom heat molded multidensity innersoles wear] docusate sodium (Stool Softener) 100 mg PO DAILY [extra depth orthopedic shoes with 3 pairs of custom heat molded multidensity innersoles wear] fluticasone propionate 50 mcg/actuation 1 spray intranasal DAILY oqlbxkqyjta-ltgtmrvxe-mypbazgj 100-62.5-25 mcg (Trelegy Ellipta) 1 ea inhalation DAILY furosemide 40 mg PO QAM glimepiride 1 mg PO DAILY hydrocortisone 2.5% appl topical lancets (FreeStyle Lancets) test daily levofloxacin 750 mg PO DAILY metformin 1,000 mg PO BID metoprolol succinate ER 50 mg PO DAILY omeprazole 40 mg PO DAILY polyethylene glycol 3350 (Miralax) 17 grams PO DAILY solifenacin 10 mg PO DAILY sulfamethoxazole-trimethoprim 800-160 mg 1 tab PO BID triamcinolone acetonide 0.1% 1 appl topical BID-TID valsartan 40 mg PO BID vitamins A,C,R-uykq-zbjcvs 2,148 mcg-113 mg-45 mg-17.4mg (PreserVision AREDS) 1 tab PO BID warfarin 7.5 mg See Protocol PO DAILY MDD 1.5 tablets daily Nursing Note INR: 1.6 out of therapeutic range of 2-3 Medications and supplements reviewed: Bactrim finished yesterday and lovofloxacin continues for 4 more days No changes in health, diet, medications, or supplements, Denies any signs and symptoms of bleeding or bruising or clotting. Bleeding, bruising, clotting discussed Nutritional guidance given to avoid greens today and to have a serving of foods that raise the INR. Food list reviewed Dose: resume usual dose of 11.25mg today and increase tomorrow's dose from 7.5mg to 11.25mg then usual dose of 7.5mg X 4 days and 11.25mg X 3 days F/U INR: 1 week Patient verbalizes understanding of instructions given Anti-Coag Initial Assessment Social Hx Patient Tobacco Use Status: Former Tobacco user Tobacco use type: Cigarette alcohol intake: current Alcohol intake frequency: holidays/special occasions only Cardiovascular Hx: HTN, CHF and Cardiomyopathy Lung Disease HX: Asthma, COPD and DVT/PE Endocrine Hx: Diabetes Blood Disorder Hx: Other GI Hx: Other Cancer HX: No Coding Diagnoses Current use of anticoagulant therapy Z79.01 Assessment & Plan Assessment & Plan (1) Current use of anticoagulant therapy: Code(s): Z79.01 - group home (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
--- NOTE | 2024-06-15 11:11 | MHC.OFFVISCO ---
Intake Intake Visit Reasons: Anticoagulation Allergies nicotine Allergy (Intermediate, Verified 06/03/24 11:23) Rash fish derived [FISH] Allergy (Unknown, Verified 06/03/24 11:23) ANGIOEDEMA tamsulosin [Flomax] Adverse Reaction (Intermediate, Verified 06/03/24 11:23) nightmares Medication List - Last Reconciled 04/23/24 by Marie Shaver RN albuterol sulfate mg inhalation Q6H PRN albuterol sulfate 90 mcg/actuation inhalation blood sugar diagnostic (FreeStyle Lite Strips) daily blood-glucose meter (FreeStyle [place] Lite kit) As directed [custom heat molded multidensity innersoles wear 3 pairs of custom heat molded multidensity innersoles wear] docusate sodium (Stool Softener) 100 mg PO DAILY [extra depth orthopedic shoes with 3 pairs of custom heat molded multidensity innersoles wear] fluticasone propionate 50 mcg/actuation 1 spray intranasal DAILY wvdbpaswigq-dvsgtqsjy-kavyjlig 100-62.5-25 mcg (Trelegy Ellipta) 1 ea inhalation DAILY furosemide 40 mg PO QAM glimepiride 1 mg PO DAILY hydrocortisone 2.5% appl topical lancets (FreeStyle Lancets) test daily levofloxacin 750 mg PO DAILY metformin 1,000 mg PO BID metoprolol succinate ER 50 mg PO DAILY omeprazole 40 mg PO DAILY polyethylene glycol 3350 (Miralax) 17 grams PO DAILY solifenacin 10 mg PO DAILY sulfamethoxazole-trimethoprim 800-160 mg 1 tab PO BID triamcinolone acetonide 0.1% 1 appl topical BID-TID valsartan 40 mg PO BID vitamins A,C,F-lqsr-rpxpvl 2,148 mcg-113 mg-45 mg-17.4mg (PreserVision AREDS) 1 tab PO BID warfarin 7.5 mg See Protocol PO DAILY MDD 1.5 tablets daily Nursing Note This note is being re-entered for the date of 04/23/24 in order to enter a code charged that was missed. The code charge should be Est Patient Level 1 Otis Mullen Male : 1950 MedRec# [id number] 04/23/24 11:33 - Nursing Note by Marie Shaver RN Acct Num: [id number] : 1950 Patient Age: 73 Intake Intake Visit Reasons: Anticoagulation Allergies nicotine Allergy (Intermediate, Verified 04/23/24 11:12) Rashfish derived [FISH] Allergy (Unknown, Verified 04/23/24 11:12) ANGIOEDEMAtamsulosin [Flomax] Adverse Reaction (Intermediate, Verified 04/23/24 11:12) nightmares Medication List - Last Reconciled 04/23/24 by Marie Shaver RN albuterol sulfate mg inhalation Q6H PRN albuterol sulfate 90 mcg/actuation inhalation blood sugar diagnostic (FreeStyle Lite Strips) daily blood-glucose meter (FreeStyle [place] Lite kit) As directed [custom heat molded multidensity innersoles wear 3 pairs of custom heat molded multidensity innersoles wear] docusate sodium (Stool Softener) 100 mg PO DAILY [extra depth orthopedic shoes with 3 pairs of custom heat molded multidensity innersoles wear] fluticasone propionate 50 mcg/actuation 1 spray intranasal DAILY yjvwamumzpf-abyfsemqp-kmczaxiq 100-62.5-25 mcg (Trelegy Ellipta) 1 ea inhalation DAILY furosemide 40 mg PO QAM glimepiride 1 mg PO DAILY hydrocortisone 2.5% appl topical lancets (FreeStyle Lancets) test daily levofloxacin 750 mg PO DAILY metformin 1,000 mg PO BID metoprolol succinate ER 50 mg PO DAILY omeprazole 40 mg PO DAILY polyethylene glycol 3350 (Miralax) 17 grams PO DAILY solifenacin 10 mg PO DAILY sulfamethoxazole-trimethoprim 800-160 mg 1 tab PO BID triamcinolone acetonide 0.1% 1 appl topical BID-TID valsartan 40 mg PO BID vitamins A,C,C-afot-knhdrg 2,148 mcg-113 mg-45 mg-17.4mg (PreserVision AREDS) 1 tab PO BID warfarin 7.5 mg See Protocol PO DAILY MDD 1.5 tablets daily Nursing Note INR: 1.6 out of therapeutic range of 2-3 Medications and supplements reviewed: Bactrim finished yesterday and lovofloxacin continues for 4 more days No changes in health, diet, medications, or supplements, Denies any signs and symptoms of bleeding or bruising or clotting. Bleeding, bruising, clotting discussed Nutritional guidance given to avoid greens today and to have a serving of foods that raise the INR. Food list reviewed Dose: resume usual dose of 11.25mg today and increase tomorrow's dose from 7.5mg to 11.25mg then usual dose of 7.5mg X 4 days and 11.25mg X 3 days F/U INR: 1 week Patient verbalizes understanding of instructions given Anti-Coag Initial Assessment Social Hx Patient Tobacco Use Status: Former Tobacco user Tobacco use type: Cigarette alcohol intake: current Alcohol intake frequency: holidays/special occasions only Cardiovascular Hx: HTN, CHF and Cardiomyopathy Lung Disease HX: Asthma, COPD and DVT/PE Endocrine Hx: Diabetes Blood Disorder Hx: Other GI Hx: Other Cancer HX: No Coding Diagnoses Current use of anticoagulant therapy Z79.01 Assessment & Plan Assessment & Plan (1) Current use of anticoagulant therapy: 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 Initialized on 04/23/24 11:33 - END OF NOTE Anti-Coag Initial Assessment Social Hx Patient Tobacco Use Status: Former Tobacco user Tobacco use type: Cigarette alcohol intake: current Alcohol intake frequency: holidays/special occasions only Cardiovascular Hx: HTN, CHF and Cardiomyopathy Lung Disease HX: Asthma, COPD and DVT/PE Endocrine Hx: Diabetes Blood Disorder Hx: Other GI Hx: Other Cancer HX: No Coding Level of Care Code Est Patient Level 1 Diagnoses Current use of anticoagulant therapy Z79.01 Comment for the date of 04/23/24 Results AMB INR Fingerstick AMB INR Fingerstick 1.6 Last Edit by Marie Shaver RN on 04/23/24 11:38 interface delay Assessment & Plan Assessment & Plan (1) Current use of anticoagulant therapy: Code(s): Z79.01 - prison (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
== END 2024-04-23 11:53 | disposition home or self-care (01) ==
LOC: HO.ACS 11:03
PROVIDERS: PCP Internal Medicine; Visit Provider Internal Medicine
DX: Z79.01 Long term (current) use of anticoagulants (principal)

== ENCOUNTER → 2024-04-23 11:03 | Outpatient (BNVA) | payer MEDICARE, OTHER, SELFPAY | PROVIDERS: PCP Internal Medicine; Visit Provider Internal Medicine | DX: I26.99 Other pulmonary embolism without acute cor pulmonale (principal); Z79.01 Long term (current) use of anticoagulants; Z51.81 Encounter for therapeutic drug level monitoring | CPT/HCPCS: 85610; 99211 ==

== ENCOUNTER 2024-04-24 07:10 | Outpatient (REF) | payer MEDICARE, OTHER, SELFPAY ==
[2024-04-24 07:56] LABS: Estimated Average Glucose 123 mg/dL; Hemoglobin A1c % 5.9 % (<6.0); Total Hemoglobin (HGBA1C) 3563.9899 umol/L
[2024-04-24 08:11] LABS: Alanine Aminotransferase 27 U/L (0-40); Albumin Level 3.8 g/dL (3.5-5.0); Alkaline Phosphatase 90 U/L (39-117); Anion Gap 12 (12-20); Aspartate Amino Transferase 17 U/L (5-37); Bilirubin Total 0.5 mg/dL (0.0-1.0); Blood Urea Nitrogen 23 mg/dL (9-16); Calcium 8.8 mg/dL (8.4-10.2); Carbon Dioxide 25 mmol/L (22-29); Chloride 108 mmol/L (96-108); Cholesterol 151 mg/dL (<200); Estimated Glomerular Filt Rate > 60; Glucose Fasting 90 mg/dL (60-99); HDL Cholesterol 37 mg/dL (>40); LDL Cholesterol Calculated 105 mg/dL (<100); Potassium 3.8 mmol/L (3.3-5.1); Sodium 141 mmol/L (135-145); Total Protein 7.3 g/dL (6.5-8.0); Triglycerides 49 mg/dL (<150)
== END 2024-04-24 07:11 | disposition home or self-care (01) ==
LOC: HO.LAB 07:10
PROVIDERS: PCP Internal Medicine; Visit Provider Internal Medicine
DX: R73.9 Hyperglycemia, unspecified (principal); Z13.9 Encounter for screening, unspecified; Z13.220 Encounter for screening for lipoid disorders
CPT/HCPCS: 36415; 80053; 80061; 83036

== ENCOUNTER 2024-04-28 08:36 | Outpatient (AMB) | payer MEDICARE, OTHER, SELFPAY ==
[2024-04-28 08:39] VITALS: BP 126/78; PULSE 73; O2SAT 93; BMI 35.0
--- NOTE | 2024-04-28 08:39 | MHC.PC.OV ---
Vital Signs 04/28/24 08:39 Height 5 ft 10 in Weight 244 lb BMI 35.0 BP 126/78 Blood Pressure Location Lt brachial Position Sitting Pulse 73 Pulse Source Pulse Oximeter Pulse Oximetry (%) 93 Oxygen Delivery Method Room Air Intake Visit Reasons: 3 Month F/U Intake Note: Pt reports being in [facility] from 04/12-04/17 for a UTI and some sort of bacteria in his stool from not washing his fruit. He was told to stop his metoprolol but would like to discuss that further today. 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 Required: No Accompanied by: Self / Same As Patient Allergies nicotine Allergy (Intermediate, Verified 04/28/24 08:43) Rash fish derived [FISH] Allergy (Unknown, Verified 04/28/24 08:43) ANGIOEDEMA tamsulosin [Flomax] Adverse Reaction (Intermediate, Verified 04/28/24 08:43) nightmares Medication List - Last Reconciled 04/28/24 by Jonathan Campoverde MD albuterol sulfate mg inhalation Q6H PRN albuterol sulfate 90 mcg/actuation inhalation blood sugar diagnostic (FreeStyle Lite Strips) daily blood-glucose meter (FreeStyle [place] Lite kit) As directed [custom heat molded multidensity innersoles wear 3 pairs of custom heat molded multidensity innersoles wear] docusate sodium (Stool Softener) 100 mg PO DAILY [extra depth orthopedic shoes with 3 pairs of custom heat molded multidensity innersoles wear] fluticasone propionate 50 mcg/actuation 1 spray intranasal DAILY prhucavaxnx-qeaeitcbs-olzpukyx 100-62.5-25 mcg (Trelegy Ellipta) 1 ea inhalation DAILY furosemide 40 mg PO QAM glimepiride 1 mg PO DAILY hydrocortisone 2.5% appl topical lancets (FreeStyle Lancets) test daily levofloxacin 750 mg PO DAILY metformin 1,000 mg PO BID metoprolol succinate ER 50 mg PO DAILY omeprazole 40 mg PO DAILY polyethylene glycol 3350 (Miralax) 17 grams PO DAILY solifenacin 10 mg PO DAILY sulfamethoxazole-trimethoprim 800-160 mg 1 tab PO BID triamcinolone acetonide 0.1% 1 appl topical BID-TID valsartan 40 mg PO BID vitamins A,C,N-bbmp-ehtyen 2,148 mcg-113 mg-45 mg-17.4mg (PreserVision AREDS) 1 tab PO BID warfarin 7.5 mg See Protocol PO DAILY MDD 1.5 tablets daily Tobacco use date assessed: 10/24/23 Fall risk assessment: No Falls in past year Last assessed Fall Risk: 04/28/24 Dental Screening Dental Screen Date: 10/24/23 HPI 3 Month F/U HPI Details copd on rx; doing well and compliant [facility] Medical History Severe obesity (BMI 35.0-35.9 with comorbidity) Screening for diabetes mellitus Obesity Hypertension Cardiomyopathy COVID-19 Asthma Surgical History History of surgery History of colonoscopy History of transurethral resection of prostate History of cystoscopy Status post orchiopexy History of eye surgery History of tonsillectomy Family History Father Heart disease Mother Colon cancer Brother No problems noted. Brother No problems noted. Sister No problems noted. Social History Housing: House Alcohol intake: current Alcohol intake frequency: holidays/special occasions only Patient Tobacco Use Status: Former Tobacco user Tobacco use type: Cigarette Years Smoked: 50 e-Cigarette/Vaping Use: Never Used Second Hand Smoke Exposure: Yes service: No Current occupational status: employed and retired Current occupation: retired Cognitive needs: No Hearing needs: No Vision needs: Yes Questionnaire PHQ-9 Over the last 2 weeks, how often have you been bothered by any of the following problems? 1. Little interest or pleasure in doing things: not at all 2. Feeling down, depressed, or hopeless: not at all 3. Trouble falling or staying asleep, or sleeping too much: not at all 4. Feeling tired or having little energy: not at all 5. Poor appetite or overeating: not at all 6. Feeling bad about yourself - or that you are a failure or have let yourself or your family down: not at all 7. Trouble concentrating on things, such as reading the newspaper or watching television: not at all 8. Moving or speaking so slowly that other people could have noticed. Or the opposite - being so fidgety or restless that you have been moving around a lot more than usual: not at all 9. Thoughts that you would be better off or of hurting yourself in some way: not at all Total score: 0 Depression Screening Interpretation: Negative Depression Screening Done: Yes 20677 - PHQ-9 Billing: Yes Source: Developed by Drs. Arnoldo Sarah, Julita Uriostegui, Vega Miller and colleagues, with an educational marisa from [employer] Thrive Questionnaire Date Thrive assessed: 10/24/23 AUDIT C Alcohol Use Questionnaire (AUDIT-C) 1. How often do you have a drink containing alcohol?: Monthly or less 2. How many drinks containing alcohol do you have on a typical day when you are drinking?: 1 or 2 3. How often do you have six or more drinks on one occasion?: Never Total Score: 1 Score Reviewed/Action Taken: Yes CAYDEN-7 AMB Questionnaire CAYDEN-7 Date CAYDEN - 7 assessed: 10/24/23 Source: Developed by Drs. Arnoldo Sarah, Julita Uriostegui, Vega Miller and colleagues, with an educational marisa from [employer] Review of Systems Const Denies chills, Denies headache(s) and Denies weight loss ENT Denies headache(s) Card Denies chest pain, Denies syncope, Denies irregular heart rhythm and Denies dyspnea Resp Denies chest congestion, Denies cough and Denies dyspnea GI Denies abdominal pain, Denies change in stool character, Denies nausea and Denies vomiting Musc Denies deformity and Denies joint swelling Neuro Denies syncope and Denies headache(s) Physical exam (Primary Care) Vital Signs: Last Vital Signs Pulse 73 04/28/24 08:39 BP 126/78 04/28/24 08:39 Pulse Ox 93 04/28/24 08:39 Oxygen Delivery Method Room Air 04/28/24 08:39 BMI result Body Mass Index 35.0 Tobacco/Smoking Status: Tobacco use Status Tobacco use date assessed 10/24/23 04/28/24 08:46 Patient Tobacco Use Status Former Tobacco user 04/28/24 08:46 Tobacco use type Cigarette 04/28/24 08:46 e-Cigarette/Vaping Use Never Used 04/28/24 08:46 PHQ-9: PHQ-9 Score PHQ-9: Total score 0 04/28/24 08:46 Depression Screening Interpretation: Negative Thrive Assessment: Date of Thrive Assessment Date Thrive assessed 10/24/23 04/28/24 08:46 Const General: cooperative, comfortable, no acute distress and alert Neck Neck: Yes no lymphadenopathy Thyroid: Thyroid normal Resp Effort & Inspection: normal respiratory effort Auscultation: clear to auscultation bilaterally Percussion: percussion normal Cardio Jugular venous distension: no JVD Palpation: normal PMI Rate: regular rate Rhythm: regular rhythm Heart sounds: S1 normal heart sound present and S2 normal heart sound present GI Inspection: Yes normal to inspection Palpation (GI): No hepatosplenomegaly present Skin General skin exam: no rashes or lesions noted Extrem General: Yes no clubbing, cyanosis or edema Assessment and Plan Assessment & Plan (1) COPD (chronic obstructive pulmonary disease): Code(s): J44.9 - Chronic obstructive pulmonary disease, unspecified Qualifiers: COPD type: unspecified COPD Qualified Code(s): J44.9 - Chronic obstructive pulmonary disease, unspecified Plan: stable; same rx Orders: Orders Lipid Panel Today Z13.220 - Encounter for screening for lipoid disorders Comprehensive [place]. Panel Fast Today Z13.9 - Encounter for screening, unspecified Complete Blood Count Auto Diff Today Z13.0 - Encounter for screening for diseases of the blood and blood-forming organs and certain disorders involving the immune mechanism Hemoglobin A1c Today R73.9 - Hyperglycemia, unspecified Coding Level of Care Code Est Pt Level 3 (39311) Diagnoses COPD (chronic obstructive pulmonary disease) J44.9 COPD type: unspecified COPD
== END 2024-04-28 08:59 | disposition home or self-care (01) ==
PROVIDERS: PCP Internal Medicine; Visit Provider Internal Medicine
DX: J44.9 Chronic obstructive pulmonary disease, unspecified (principal)

== ENCOUNTER → 2024-04-28 08:36 | Outpatient (BNVA) | payer MEDICARE, OTHER, SELFPAY | PROVIDERS: PCP Internal Medicine; Visit Provider Internal Medicine | DX: J44.9 Chronic obstructive pulmonary disease, unspecified (principal) | CPT/HCPCS: 99212 ==

== ENCOUNTER 2024-04-29 11:03 | Outpatient (AMB) | payer MEDICARE, OTHER, SELFPAY ==
[2024-04-29 11:15] LABS: Prothrombin Time Whole Bld POC 27.3 sec (11.1-13.5); ~PT, ~INR - Anti Coag Clinic 2.3 (0.9-1.1)
--- NOTE | 2024-04-29 11:26 | MHC.OFFVISCO ---
Intake Intake Visit Reasons: Anticoagulation Allergies nicotine Allergy (Intermediate, Verified 04/29/24 11:09) Rash fish derived [FISH] Allergy (Unknown, Verified 04/29/24 11:09) ANGIOEDEMA tamsulosin [Flomax] Adverse Reaction (Intermediate, Verified 04/29/24 11:09) nightmares Medication List - Last Reconciled 04/29/24 by Marie Shaver, RN albuterol sulfate mg inhalation Q6H PRN albuterol sulfate 90 mcg/actuation inhalation blood sugar diagnostic (FreeStyle Lite Strips) daily blood-glucose meter (FreeStyle [place] Lite kit) As directed [custom heat molded multidensity innersoles wear 3 pairs of custom heat molded multidensity innersoles wear] docusate sodium (Stool Softener) 100 mg PO DAILY [extra depth orthopedic shoes with 3 pairs of custom heat molded multidensity innersoles wear] fluticasone propionate 50 mcg/actuation 1 spray intranasal DAILY duapttqtcyv-tydxklvvd-ypzfrfqq 100-62.5-25 mcg (Trelegy Ellipta) 1 ea inhalation DAILY furosemide 40 mg PO QAM glimepiride 1 mg PO DAILY hydrocortisone 2.5% appl topical lancets (FreeStyle Lancets) test daily levofloxacin 750 mg PO DAILY metformin 1,000 mg PO BID metoprolol succinate ER 50 mg PO DAILY omeprazole 40 mg PO DAILY polyethylene glycol 3350 (Miralax) 17 grams PO DAILY solifenacin 10 mg PO DAILY sulfamethoxazole-trimethoprim 800-160 mg 1 tab PO BID triamcinolone acetonide 0.1% 1 appl topical BID-TID valsartan 40 mg PO BID vitamins A,C,U-vrnv-phovpk 2,148 mcg-113 mg-45 mg-17.4mg (PreserVision AREDS) 1 tab PO BID warfarin 7.5 mg See Protocol PO DAILY MDD 1.5 tablets daily Nursing Note INR: 2.3 in therapeutic range of 2-3 Medications and supplements reviewed: completed levofloxacin for UTI on Friday 4 days ago No changes in health, diet, or supplements, Denies any signs and symptoms of bleeding or bruising or clotting. Bleeding, bruising, clotting discussed Nutritional guidance given Dose: resume usual dose of 7.5mg X 4 days and 11.25mg X 3 days F/U INR: 1 week due to potential delayed effect to increase INR from antibx Patient verbalizes understanding of instructions given Anti-Coag Initial Assessment Social Hx Patient Tobacco Use Status: Former Tobacco user Tobacco use type: Cigarette alcohol intake: current Alcohol intake frequency: holidays/special occasions only Cardiovascular Hx: HTN, CHF and Cardiomyopathy Lung Disease HX: Asthma, COPD and DVT/PE Endocrine Hx: Diabetes Blood Disorder Hx: Other GI Hx: Other Cancer HX: No Coding Level of Care Code Est Patient Level 1 Diagnoses Current use of anticoagulant therapy Z79.01 Assessment & Plan Assessment & Plan (1) Current use of anticoagulant therapy: Code(s): Z79.01 - 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
== END 2024-04-29 11:29 | disposition home or self-care (01) ==
LOC: HO.ACS 11:03
PROVIDERS: PCP Internal Medicine; Visit Provider Internal Medicine
DX: Z79.01 Long term (current) use of anticoagulants (principal)

== ENCOUNTER → 2024-04-29 11:03 | Outpatient (BNVA) | payer MEDICARE, OTHER, SELFPAY | PROVIDERS: PCP Internal Medicine; Visit Provider Internal Medicine | DX: I26.99 Other pulmonary embolism without acute cor pulmonale (principal); Z79.01 Long term (current) use of anticoagulants; Z51.81 Encounter for therapeutic drug level monitoring | CPT/HCPCS: 85610; 99211 ==

== ENCOUNTER 2024-05-06 11:12 | Outpatient (AMB) | payer MEDICARE, OTHER, SELFPAY ==
--- NOTE | 2024-05-06 11:33 | MHC.OFFVISCO ---
Intake Intake Visit Reasons: Anticoagulation Allergies nicotine Allergy (Intermediate, Verified 05/06/24 11:22) Rash fish derived [FISH] Allergy (Unknown, Verified 05/06/24 11:22) ANGIOEDEMA tamsulosin [Flomax] Adverse Reaction (Intermediate, Verified 05/06/24 11:22) nightmares Medication List - Last Reconciled 05/06/24 by Yakelin Jenkins RN albuterol sulfate mg inhalation Q6H PRN albuterol sulfate 90 mcg/actuation inhalation blood sugar diagnostic (FreeStyle Lite Strips) daily blood-glucose meter (FreeStyle [place] Lite kit) As directed [custom heat molded multidensity innersoles wear 3 pairs of custom heat molded multidensity innersoles wear] docusate sodium (Stool Softener) 100 mg PO DAILY [extra depth orthopedic shoes with 3 pairs of custom heat molded multidensity innersoles wear] fluticasone propionate 50 mcg/actuation 1 spray intranasal DAILY qmfjccvtcut-xtdaitpmq-rnvyehgg 100-62.5-25 mcg (Trelegy Ellipta) 1 ea inhalation DAILY furosemide 40 mg PO QAM glimepiride 1 mg PO DAILY hydrocortisone 2.5% appl topical lancets (FreeStyle Lancets) test daily metformin 1,000 mg PO BID metoprolol succinate ER 50 mg PO DAILY omeprazole 40 mg PO DAILY polyethylene glycol 3350 (Miralax) 17 grams PO DAILY solifenacin 10 mg PO DAILY triamcinolone acetonide 0.1% 1 appl topical BID-TID valsartan 40 mg PO BID vitamins A,C,I-emuu-xihaom 2,148 mcg-113 mg-45 mg-17.4mg (PreserVision AREDS) 1 tab PO BID warfarin 7.5 mg See Protocol PO DAILY MDD 1.5 tablets daily Nursing Note INR: 3.0 in therapeutic range Medications and supplements reviewed PT COMPLETED ANTBXS AND JUST RECENTLY HAD FLU VACCINE - BOTH MAY HAVE CONTRIBUTED TO INR RAISE Denies any signs and symptoms of bleeding or bruising or clotting. Bleeding, bruising, clotting discussed Nutritional guidance given - EAT A MIX OF FRUITS AND VEGETABLES - [place] TODAY Dose: KEEP THE SAME DOSE FOR NOW 11.25MG X 3 DAYS / 7.5MG X 4 DAYS F/U INR: 2 WEEKS DUE ANTB X AND FLU VACCINE AND RECENT ADMISSION THEN GO TO 3WEEKS X1 THEN MONTHLY Patient verbalizes understanding of instructions given Anti-Coag Initial Assessment Social Hx Patient Tobacco Use Status: Former Tobacco user Tobacco use type: Cigarette alcohol intake: current Alcohol intake frequency: holidays/special occasions only Cardiovascular Hx: HTN, CHF and Cardiomyopathy Lung Disease HX: Asthma, COPD and DVT/PE Endocrine Hx: Diabetes Blood Disorder Hx: Other GI Hx: Other Cancer HX: No Coding Level of Care Code Est Patient Level 1 Diagnoses Current use of anticoagulant therapy Z79.01 Results AMB INR Fingerstick AMB INR Fingerstick 3.0 Last Edit by Yakelin Jenkins RN on 05/06/24 11:31 MANUAL ENTRY Assessment & Plan Assessment & Plan (1) Current use of anticoagulant therapy: Code(s): Z79.01 - 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
[2024-05-06 12:20] LABS: Prothrombin Time Whole Bld POC 35.7 sec (11.1-13.5)
== END 2024-05-06 11:36 | disposition home or self-care (01) ==
LOC: HO.ACS 11:12
PROVIDERS: PCP Internal Medicine; Visit Provider Internal Medicine
DX: Z79.01 Long term (current) use of anticoagulants (principal)

== ENCOUNTER → 2024-05-06 11:12 | Outpatient (BNVA) | payer MEDICARE, OTHER, SELFPAY | PROVIDERS: PCP Internal Medicine; Visit Provider Internal Medicine | DX: I26.99 Other pulmonary embolism without acute cor pulmonale (principal); Z79.01 Long term (current) use of anticoagulants; Z51.81 Encounter for therapeutic drug level monitoring | CPT/HCPCS: 85610; 99211 ==

== ENCOUNTER 2024-05-20 11:24 | Outpatient (AMB) | payer MEDICARE, OTHER, SELFPAY ==
[2024-05-20 11:42] LABS: Prothrombin Time Whole Bld POC 39.3 sec (11.1-13.5); ~PT, ~INR - Anti Coag Clinic 3.3 (0.9-1.1)
--- NOTE | 2024-05-20 11:49 | MHC.OFFVISCO ---
Intake Intake Visit Reasons: Anticoagulation Allergies nicotine Allergy (Intermediate, Verified 05/20/24 11:35) Rash fish derived [FISH] Allergy (Unknown, Verified 05/20/24 11:35) ANGIOEDEMA tamsulosin [Flomax] Adverse Reaction (Intermediate, Verified 05/20/24 11:35) nightmares Medication List - Last Reconciled 05/20/24 by Yakelin Jenkins RN albuterol sulfate mg inhalation Q6H PRN albuterol sulfate 90 mcg/actuation inhalation blood sugar diagnostic (FreeStyle Lite Strips) daily blood-glucose meter (FreeStyle [place] Lite kit) As directed [custom heat molded multidensity innersoles wear 3 pairs of custom heat molded multidensity innersoles wear] docusate sodium (Stool Softener) 100 mg PO DAILY [extra depth orthopedic shoes with 3 pairs of custom heat molded multidensity innersoles wear] fluticasone propionate 50 mcg/actuation 1 spray intranasal DAILY uvfjbhsmezv-afooyhybv-accivozh 100-62.5-25 mcg (Trelegy Ellipta) 1 ea inhalation DAILY furosemide 40 mg PO QAM glimepiride 1 mg PO DAILY hydrocortisone 2.5% appl topical lancets (FreeStyle Lancets) test daily metformin 1,000 mg PO BID metoprolol succinate ER 50 mg PO DAILY omeprazole 40 mg PO DAILY polyethylene glycol 3350 (Miralax) 17 grams PO DAILY solifenacin 10 mg PO DAILY triamcinolone acetonide 0.1% 1 appl topical BID-TID vitamins A,C,T-jrct-hpvxtt 2,148 mcg-113 mg-45 mg-17.4mg (PreserVision AREDS) 1 tab PO BID warfarin 7.5 mg See Protocol PO DAILY MDD 1.5 tablets daily Nursing Note INR: 3.3 ALMOST therapeutic range- COMPLETED ANTBX ABOUT 1 MONTH AGO- HAS ONLY EATEN PEAS OVER THE PAST WEEK- HAS HAD A LOT OF WINTER SQUASH LAST WEEK NO OTHER CHANGES -STATES HE FEELS WELL Medications and supplements reviewed No changes in health, diet, medications, or supplements, Denies any signs and symptoms of bleeding or bruising or clotting. Bleeding, bruising, clotting discussed Nutritional guidance given - ADD 1 SERVING OF BROCCOLI / WEEK PLUS SOME BLUEBERRIES ( HE LIKES THEM) Dose: KEEP SAME 11.25MG MWF/ 7.5MG X 4 DAYS F/U INR: 2 WEEKS Patient verbalizes understanding of instructions given Anti-Coag Initial Assessment Social Hx Patient Tobacco Use Status: Former Tobacco user Tobacco use type: Cigarette alcohol intake: current Alcohol intake frequency: holidays/special occasions only Cardiovascular Hx: HTN, CHF and Cardiomyopathy Lung Disease HX: Asthma, COPD and DVT/PE Endocrine Hx: Diabetes Blood Disorder Hx: Other GI Hx: Other Cancer HX: No Coding Level of Care Code Est Patient Level 1 Diagnoses Current use of anticoagulant therapy Z79.01 Results AMB INR Fingerstick AMB INR Fingerstick 3.3 Last Edit by Yakelin Jenkins RN on 05/20/24 11:44 MANUAL ENTRY Assessment & Plan Assessment & Plan (1) Current use of anticoagulant therapy: Code(s): Z79.01 - care home (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
== END 2024-05-20 11:52 | disposition home or self-care (01) ==
LOC: HO.ACS 11:24
PROVIDERS: PCP Internal Medicine; Visit Provider Internal Medicine
DX: Z79.01 Long term (current) use of anticoagulants (principal)

== ENCOUNTER → 2024-05-20 11:24 | Outpatient (BNVA) | payer MEDICARE, OTHER, SELFPAY | PROVIDERS: PCP Internal Medicine; Visit Provider Internal Medicine | DX: I26.99 Other pulmonary embolism without acute cor pulmonale (principal); Z79.01 Long term (current) use of anticoagulants; Z51.81 Encounter for therapeutic drug level monitoring | CPT/HCPCS: 85610; 99211 ==

== ENCOUNTER 2024-06-03 11:21 | Outpatient (AMB) | payer MEDICARE, OTHER, SELFPAY ==
[2024-06-03 11:30] LABS: ~PT, ~INR - Anti Coag Clinic 2.2 (0.9-1.1)
--- NOTE | 2024-06-03 11:33 | MHC.OFFVISCO ---
Intake Intake Visit Reasons: Anticoagulation Allergies nicotine Allergy (Intermediate, Verified 06/03/24 11:23) Rash fish derived [FISH] Allergy (Unknown, Verified 06/03/24 11:23) ANGIOEDEMA tamsulosin [Flomax] Adverse Reaction (Intermediate, Verified 06/03/24 11:23) nightmares Medication List - Last Reconciled 06/03/24 by Marie Pollock RN albuterol sulfate mg inhalation Q6H PRN albuterol sulfate 90 mcg/actuation inhalation blood sugar diagnostic (FreeStyle Lite Strips) daily blood-glucose meter (FreeStyle [place] Lite kit) As directed [custom heat molded multidensity innersoles wear 3 pairs of custom heat molded multidensity innersoles wear] docusate sodium (Stool Softener) 100 mg PO DAILY [extra depth orthopedic shoes with 3 pairs of custom heat molded multidensity innersoles wear] fluticasone propionate 50 mcg/actuation 1 spray intranasal DAILY tpfuygoxlbc-tenmpckgi-wpwlqqiw 100-62.5-25 mcg (Trelegy Ellipta) 1 ea inhalation DAILY furosemide 40 mg PO QAM glimepiride 1 mg PO DAILY hydrocortisone 2.5% appl topical lancets (FreeStyle Lancets) test daily metformin 1,000 mg PO BID metoprolol succinate ER 50 mg PO DAILY omeprazole 40 mg PO DAILY polyethylene glycol 3350 (Miralax) 17 grams PO DAILY solifenacin 10 mg PO DAILY triamcinolone acetonide 0.1% 1 appl topical BID-TID vitamins A,C,C-jvej-ftmfsa 2,148 mcg-113 mg-45 mg-17.4mg (PreserVision AREDS) 1 tab PO BID warfarin 7.5 mg See Protocol PO DAILY MDD 1.5 tablets daily Nursing Note Amb to [facility] feeling well Medications and supplements reviewed, sts he started on a supplement for prostate, forgot name will bring next visit No other changes in health, diet, medications, or supplements, Denies any signs and symptoms of bleeding, bruising, or clotting. Bleeding, bruising, clotting discussed INR 2.2 in therapeutic range Dose: continue usual 11.25mg x 3 days and 7.5mg x 4 days balance greens and reds in diet, not a big green eater has added blueberry yogurt every other day as a green F/U INR: 3 weeks Patient verbalizes understanding of instructions given Anti-Coag Initial Assessment Social Hx Patient Tobacco Use Status: Former Tobacco user Tobacco use type: Cigarette alcohol intake: current Alcohol intake frequency: holidays/special occasions only Cardiovascular Hx: HTN, CHF and Cardiomyopathy Lung Disease HX: Asthma, COPD and DVT/PE Endocrine Hx: Diabetes Blood Disorder Hx: Other GI Hx: Other Cancer HX: No Coding Level of Care Code Est Patient Level 1 Diagnoses Current use of anticoagulant therapy Z79.01 Time Spent (min) 15 Assessment & Plan Assessment & Plan (1) Current use of anticoagulant therapy: Code(s): Z79.01 - retirement (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
== END 2024-06-03 13:28 | disposition home or self-care (01) ==
LOC: HO.ACS 11:21
PROVIDERS: PCP Internal Medicine; Visit Provider Internal Medicine
DX: Z79.01 Long term (current) use of anticoagulants (principal)

== ENCOUNTER → 2024-06-03 11:21 | Outpatient (BNVA) | payer MEDICARE, OTHER, SELFPAY | PROVIDERS: PCP Internal Medicine; Visit Provider Internal Medicine | DX: I26.99 Other pulmonary embolism without acute cor pulmonale (principal); Z79.01 Long term (current) use of anticoagulants; Z51.81 Encounter for therapeutic drug level monitoring | CPT/HCPCS: 85610; 99211 ==

== ENCOUNTER 2024-06-24 08:34 | Outpatient (AMB) | payer MEDICARE, OTHER, SELFPAY ==
[2024-06-24 08:52] LABS: Prothrombin Time Whole Bld POC 24.3 sec (11.1-13.5)
--- NOTE | 2024-06-24 08:58 | MHC.OFFVISCO ---
Intake Intake Visit Reasons: Anticoagulation Allergies nicotine Allergy (Intermediate, Verified 06/03/24 11:23) Rash fish derived [FISH] Allergy (Unknown, Verified 06/03/24 11:23) ANGIOEDEMA tamsulosin [Flomax] Adverse Reaction (Intermediate, Verified 06/03/24 11:23) nightmares Medication List - Last Reconciled 06/24/24 by Yakelin Jenkins RN albuterol sulfate mg inhalation Q6H PRN albuterol sulfate 90 mcg/actuation inhalation blood sugar diagnostic (FreeStyle Lite Strips) daily blood-glucose meter (FreeStyle [place] Lite kit) As directed [custom heat molded multidensity innersoles wear 3 pairs of custom heat molded multidensity innersoles wear] docusate sodium (Stool Softener) 100 mg PO DAILY [extra depth orthopedic shoes with 3 pairs of custom heat molded multidensity innersoles wear] fluticasone propionate 50 mcg/actuation 1 spray intranasal DAILY ahzjpvcpawb-uxpqmagzu-djuawtcf 100-62.5-25 mcg (Trelegy Ellipta) 1 ea inhalation DAILY furosemide 40 mg PO QAM glimepiride 1 mg PO DAILY hydrocortisone 2.5% appl topical lancets (FreeStyle Lancets) test daily metformin 1,000 mg PO BID metoprolol succinate ER 50 mg PO DAILY omeprazole 40 mg PO DAILY polyethylene glycol 3350 (Miralax) 17 grams PO DAILY solifenacin 10 mg PO DAILY triamcinolone acetonide 0.1% 1 appl topical BID-TID vitamins A,C,E-lmxr-rpgtdk 2,148 mcg-113 mg-45 mg-17.4mg (PreserVision AREDS) 1 tab PO BID warfarin 7.5 mg See Protocol PO DAILY MDD 1.5 tablets daily Nursing Note INR: 2.0 in therapeutic range Medications and supplements reviewed taking sunny rosa per urologist- this nurse researched med in [employer] and upt to date- both state it can raise the INR with delayed onset - he has been on it x 1 month now. has usual bruising - he was enc if he ever develops more than usual bruising or bleeding to call [facility] to have INR checked He stated that his check writer Dr Longo was asking him to transition to a DOAC - he stated he would discuss with Dr Campoverde Bleeding, bruising, clotting discussed - denies any unusual bruising Nutritional guidance given - cont to eat a mix of fruits and vegetables Dose: keep same 11.75mg mwf/ 7.5mg x 4 days F/U INR: 1 month Patient verbalizes understanding of instructions given Anti-Coag Initial Assessment Social Hx Patient Tobacco Use Status: Former Tobacco user Tobacco use type: Cigarette alcohol intake: current Alcohol intake frequency: holidays/special occasions only Cardiovascular Hx: HTN, CHF and Cardiomyopathy Lung Disease HX: Asthma, COPD and DVT/PE Endocrine Hx: Diabetes Blood Disorder Hx: Other GI Hx: Other Cancer HX: No Coding Level of Care Code Est Patient Level 1 Diagnoses Current use of anticoagulant therapy Z79.01 Results AMB INR Fingerstick AMB INR Fingerstick 2.0 Last Edit by Yakelin Jenkins RN on 06/24/24 08:55 manual entry Assessment & Plan Assessment & Plan (1) Current use of anticoagulant therapy: Code(s): Z79.01 - [facility] (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 Medications: New saw palmetto give with food (meal/snack) 450 mg PO BID
== END 2024-06-24 09:06 | disposition home or self-care (01) ==
LOC: HO.ACS 08:34
PROVIDERS: PCP Internal Medicine; Visit Provider Internal Medicine
DX: Z79.01 Long term (current) use of anticoagulants (principal)

== ENCOUNTER → 2024-06-24 08:34 | Outpatient (BNVA) | payer MEDICARE, OTHER, SELFPAY | PROVIDERS: PCP Internal Medicine; Visit Provider Internal Medicine | DX: I26.99 Other pulmonary embolism without acute cor pulmonale (principal); Z79.01 Long term (current) use of anticoagulants; Z51.81 Encounter for therapeutic drug level monitoring | CPT/HCPCS: 85610; 99211 ==

== ENCOUNTER 2024-07-16 13:02 | Outpatient (AMB) | payer MEDICARE, OTHER, SELFPAY ==
--- OUTSIDE RECORDS SUMMARY | 2024-07-16 13:05 | XMS_ITS | Continuity of Care Document ---
Author Organization [facility] ter Address [address] [place] [address]- Care Team Providers Care Medical Social Consultant Name Role Phone Gilles THOMPSON, Jonathan Neumann Primary Care Physician Encounter [facility] Date(s): 01/27/24 - 07/08/24 [facility] [address], [place] [address] Encounter Diagnosis Chronic obstructive pulmonary disease, unspecified(Final) - Discharge Disposition: A-D/C Home Attending Physician: Jordan Arauz MD Admitting Physician: Jordan Arauz MD Referring Physician: Regina Thomas MD Encounter Type: Disch Recurring OP Allergies, Adverse Reactions, Alerts Substance Criticality Severity Reaction Reaction Severity Status Flomax insomnia Active Nicotine Patch rash,itching Ac tive Magnevist Low criticality Mild patient felt sick/weak after injection Resolved Fish SOB, swelling Active Immunizations Given and Recorded Vaccine Date Status Refusal Reason RSV vaccine preF3, recombinant 10/27/23 Recorded pneumococcal 20-valent conjugate vaccine 08/06/22 Recorded [id number] 12y+ bivalent booster vax 08/06/22 Recorded SARS-CoV-2 mRNA ([id number]) vax 11/29/21 Recorded SARS-CoV-2 (COVID-19) mRNA BNT-162b2 vac 07/09/21 Recorded SARS-CoV-2 (COVID-19) mRNA BNT-162b2 vac 11/09/20 Recorded SARS-CoV-2 (COVID-19) mRNA BNT-162b2 vac 10/19/20 Recorded influenza virus vaccine, inactivated 04/25/21 Octavio rded influenza virus vaccine, inactivated 05/19/19 Octavio rded influenza virus vaccine, inactivated 05/11/18 Octavio rded influenza virus vaccine, inactivated 05/14/17 Octavio rded influenza virus vaccine, inactivated 05/06/16 Octavio rded pneumococcal 23-valent vaccine 03/28/17 Recorded pneumococcal 23-valent vaccine 02/07/10 Given Medications albuterol 0.083% inhalation solution 3 mL, Inhalation, Every 6 hours, PRN NEEDED FOR WHEEZING, # 375 mL, 5 Refills, Maintenance, 06/22/24 4:21:00 PM EST, [id number], 179, cm, 06/10/24 8:17:00 EST, Height, 111, kg, 04/14/24 7:24:00 EDT, Dry Weight Start Date: 06/22/24 Status: Ordered Quantity: 375.0 Unit: mL Repeat number: 1 Alcohol Wipes See Instructions, # 60 Unknown, Refills 2, Tot. Refills 2, Maintenance, clean skin each time beforepricking to check blood sugar levels Code: E11.9 Take Blood Sugar Once A day, 10/23/21 3:24:00 PM EDT, Supply, 180, cm, 10/22/21 6:34:00 EDT, Height, 116, kg, 10/13/21 20:36:00 EST, Dry Weight Start Date: 10/23/21 Status: Ordered Quantity: 60.0 Unit: Unknown Repeat number: 3 aspirin 81 mg oral delayed release tablet 81 mg, 1, tablet, By Mouth, Daily, # 30 tablet, Refills 0, Maintenance, 04/12/24 2:54:00 PM EDT, Partial fill upon patient request if the prescription is for a schedule II opioid drug. Start Date: 04/12/24 Status: Ordered Quantity: 30.0 Unit: tablet Repeat number: 1 dicyclomine 10 mg oral capsule 1 capsule = 10 mg, By Mouth, 4 times a day, PRN abdominal cramping, # 40 capsule, 1 Refills, Maintenance, 06/01/24 9:42:00 AM EDT, Capsule, [id number], Partial fill upon patient request if the prescription is for a schedule II opioid drug., 179, cm, 06/01/24 9:28:00 EDT, Height, 111, kg, 04/14/24 7:24:00 EDT, Dry Weight Start Date: 06/01/24 Status: Ordered Quantity: 40.0 Unit: capsule Repeat number: 2 Indication: Constipation, unspecified fluticasone 50 mcg/inh nasal spray 0 Refills, Maintenance, 01/23/21 7:46:00 AM EDT, Partial fill upon patient request if the prescription is for a schedule II opioid drug. Start Date: 01/23/21 Status: Ordered Repeat number: 1 Freestyle Flash Glucose Meter See Instructions, # 1 each, Refills 5, Tot. Refills 5, Maintenance, use as directed for Type 2 Diabetes Mellitus Code: E11.9 Take Blood Sugar Once A day, 10/23/21 3:24:00 PM EDT, Supply, 180, cm, 10/22/21 6:34:00 EDT, Height, 116, kg, 10/13/21 20:36:00 EST, Dry Weight Start Date: 10/23/21 Stop Date: 04/21/22 Status: Ordered Quantity: 1.0 Unit: each Repeat number: 6 Freestyle Lite Lancets See Instructions, # 200 each, Refills 5, Tot. Refills 5, Maintenance, use as directed for Type 2 Diabetes Mellitus Code: E11.9 Take Blood Sugar Once A day, 10/23/21 3:25:00 PM EDT, Supply, 180, cm, 10/22/21 6:34:00 EDT, Height, 116, kg, 10/13/21 20:36:00 EST, Dry Weight Start Date: 10/23/21 Stop Date: 04/21/22 Status: Ordered Quantity: 200.0 Unit: each Repeat number: 6 Freestyle Lite Monitor See Instructions, # 1 Unknown, Maintenance, Code: E11.9 Take Blood Sugar Once A day May be substituted, 10/24/21 8:56:00 AM EDT, Supply, 180, cm, 10/22/21 6:34:00 EDT, Height, 116, kg, 10/13/21 20:36:00 EST, Dry Weight Start Date: 10/24/21 Status: Ordered Quantity: 1.0 Unit: Unknown Repeat number: 1 Freestyle Lite Test Strips See Instructions, # 200 each, Maintenance, use as directed for Type 2 Diabetes Mellitus Code: E11.9Take Blood Sugar Once A day, 10/23/21 3:25:00 PM EDT, Supply, 180, cm, 10/22/21 6:34:00 EDT, Height,116, kg, 10/13/21 20:36:00 EST, Dry Weight Start Date: 10/23/21 Stop Date: 11/22/21 Status: Ordered Quantity: 200.0 Unit: each Repeat number: 1 furosemide 40 mg oral tablet TAKE 1 TABLET BY MOUTH EVERY DAY IN THE MORNING Start Date: 07/17/20 Status: Ordered Repeat number: 1 glimepiride 1 mg oral tablet See Instructions, Take in AM and PM, # 60 tablet, 0 Refills, Maintenance, 10/22/21 10:29:00 AM EDT, [facility], Partial fill upon patient request if the prescription is for a schedule IIopioid drug., 180, cm, 10/22/21 6:34:00 EDT, Height, 116, kg, 10/13/21 20:36:00 EST, Dry Weight Start Date: 10/22/21 Status: Ordered Quantity: 60.0 Unit: tablet Repeat number: 1 Home Blood Pressure Monitor See Instructions, # 1 each, Maintenance, ICD l10 and I50.9, 03/18/19 10:44:42 AM EDT, Compound Start Date: 03/18/19 Status: Ordered Quantity: 1.0 Unit: each Repeat number: 1 metFORMIN 1000 mg oral tablet 1 tablet = 1,000 mg, By Mouth, 2 times a day, # 60 tablet, 0 Refills, Maintenance, 10/23/21 3:23:00 PM EDT, Tablet, [facility] #[id number], Partial fill upon patient request if the prescription is for a schedule II opioid drug., 180, cm, 10/22/21 6:34:00 EDT, Height, 116, kg, 10/13/21 20:36:00 EST, Dry Weight Start Date: 10/23/21 Status: Ordered Quantity: 60.0 Unit: tablet Repeat number: 1 metoprolol succinate 50 mg oral capsule, extended release 1 capsule = 50 mg, By Mouth, Daily, # 90 capsule, 3 Refills, Maintenance, 07/18/23 12:27:00 PM EST,ER Capsule, [id number], Partial fill upon patient request if the prescription is for a schedule II opioid drug., 178, cm, 06/19/23 7:47:00 EST, Height, 109.5, kg, 06/23/22 13:47:00 EST, Dry Weight Start Date: 07/18/23 Status: Ordered Quantity: 90.0 Unit: capsule Repeat number: 4 Nebulizer supplies Nebulizer supplies, See Instructions, # 1 each, Refills 11, Tot. Refills 11, Maintenance, NebulizerSupplies A7003 Neb Disp Set A7014 Neb non-Disp Filter A7005 Neb Non-Disp set A7015 Aerosol Mask A7013 Neb Disp Filter Dx: J44.9 Length of need lifetime 99 month, 11/08/19 12:52:00 PM EDT, Supply Start Date: 11/08/19 Status: Ordered Quantity: 1.0 Unit: each Repeat number: 12 Nebulizer/Compressor See Instructions, # 1 each, Refills 11, Tot. Refills 11, Maintenance, E0570 Nebulizer A7003 Neb Disp Set A7014 Neb non-Disp Filter A7005 Neb Non-Disp set A7015 Aerosol Mask A7013 Neb Disp Filter length of need lifetime 99 months for home use, 12/22/23 3:08:00 PM EDT, Supply Start Date: 12/22/23 Status: Ordered Quantity: 1.0 Unit: each Repeat number: 12 omeprazole 40 mg oral enteric coated capsule 1 capsule = 40 mg, By Mouth, Daily, # 90 capsule, 2 Refills, Maintenance, 05/10/20 12:15:00 PM EDT, EC Capsule, [facility]/pharm[facility] #[id number], 180, cm, 03/25/20 12:53:00 EDT, Height, 114, kg, 03/25/20 12:55:00 EDT, Dry Weight Start Date: 05/10/20 Stop Date: 02/04/21 Status: Ordered Quantity: 90.0 Unit: capsule Repeat number: 3 PreserVision AREDS oral capsule By Mouth, 2 times a day, 0 Refills, Maintenance, 11/17/23 3:06:00 AM EDT, Partial fill upon patient request if the prescription is for a schedule II opioid drug. Start Date: 11/17/23 Status: Ordered Repeat number: 1 solifenacin 10 mg oral tablet 1 tablet = 10 mg, By Mouth, Daily, # 90 tablet, 0 Refills, Maintenance, 12/11/23 10:39:00 AM EDT, Tablet, Partial fill upon patient request if the prescription is for a schedule II opioid drug. Start Date: 12/11/23 Status: Ordered Quantity: 90.0 Unit: tablet Repeat number: 1 Suprep Bowel Prep Kit oral liquid 177 mL, By Mouth, Once, Take the first 6 oz bottle the evening before colonoscopy, and the second 6oz bottle the morning of colonoscopy., # 354 mL, 0 Refills, Soft Stop, 06/01/24 9:47:00 AM EDT, [facility]/pharmacy #[id number], Partial fill upon patient request if the prescription is for a schedule II opioid drug., 177 mL By Mouth Once,Instr:Take the first 6 oz bottle the evening before colonoscopy, and the second 6 oz bottle the morning of colonoscopy., 179, cm, 06/01/24 9:28:00 EDT, Height, 111, kg, 04/14/24 7:24:00 EDT, Dry Weight Start Date: 06/01/24 Status: Ordered Quantity: 354.0 Unit: mL Repeat number: 1 Indication: Encounter for screening for malignant neoplasm of colon Trelegy Ellipta inhalation powder 1 puffs, Inhalation, Daily, # 60 Unknown, 6 Refills, Maintenance, 01/13/24 4:40:00 PM EDT, [facility], 180, cm, 12/11/23 10:39:00 EDT, Height, 109.5, kg, 11/17/23 2:39:00 EDT, Dry Weight Start Date: 01/13/24 Status: Ordered Quantity: 60.0 Unit: Unknown Repeat number: 1 valsartan 40 mg oral tablet 1, tablet, By Mouth, 2 times a day, # 180 tablet, Refills 1, Maintenance, 06/14/24 7:26:00 AM EST, Route to Pharmacy Electronically, [id number], 179, cm, 06/10/24 8:17:00 EST, Height, 111, kg, 04/14/24 7:24:00 EDT, Dry Weight Start Date: 06/14/24 Status: Ordered Quantity: 180.0 Unit: tablet Repeat number: 1 Vitamin C = 1,000 mg, By Mouth, Daily, 0 Refills, Maintenance, 08/16/20 5:16:00 PM EST, Partial fill upon patient request if the prescription is for a schedule II opioid drug. Start Date: 08/16/20 Status: Ordered Repeat number: 1 warfarin 7.5 mg oral tablet 1 tablet = 7.5 mg, By Mouth, Daily, # 30 tablet, 0 Refills, Maintenance, 10/22/21 10:11:00 AM EDT, Tablet, [facility], Partial fill upon patient request if the prescription is for a schedule II opioid drug., 180, cm, 10/22/21 6:34:00 EDT, Height, 116, kg, 10/13/21 20:36:00 EST, Dry Weight Start Date: 10/22/21 Status: Ordered Quantity: 30.0 Unit: tablet Repeat number: 1 Problem List Condition Confirmation Course Effective Dates Status Health St atus Informant Central sleep apnea Confirmed Active Congestive heart failure Confirmed Active Enlarged prostate Confirmed Active Nocturnal hypoxemia Confirmed Active Moderate COPD (chronic obstructive pulmonary disease) Confirmed Active Pulmonary nodules Confirmed Active Obese class I Confirmed Active Sleep apnea Confirmed Active History of tobacco use Confirmed Active Type 2 diabetes mellitus with peripheral angiopathy Confirmed Active Social History Social History Type Response Tobacco Use: Former Smoker. Sex Sex Representation Male (finding) Patient Care team information Care Team Personnel Name: Gilda Atkinson RN Position: [facility] RN Member Role: Primary Care Nurse Name: Rina Stringer RN Position: [facility] RN Member Role: Primary Care Nurse Name: Natalya Yost RN Position: [facility] RN Member Role: Primary Care Nurse Name: Emily Tapia RN Position: S RN Member Role: Primary Care Nurse Name: Estela Lugo RN Position: [facility] RN Member Role: Primary Care Nurse Name: Matthew Cueto RN Position: S RN Member Role: Primary Care Nurse Name: Haley Irene RN Position: [facility] RN Member Role: Primary Care Nurse Name: Kaley Feng RN Position: S RN Member Role: Primary Care Nurse Name: Natalya Davis RN Position: S RN Member Role: Primary Care Nurse Name: Jonathan Campoverde MD Position: Reference Physician Member Role: PCP Address: [address] [place] [address] Telecom: Name: Kaylene Reid RN Position: S RN Member Role: Primary Care Nurse Name: Cedric Dodson RN Position: [facility] RN Member Role: Primary Care Nurse Name: Cory Zhou RN Position: [facility] RN Member Role: Primary Care Nurse Name: Deni Gramajo MD Position: [facility] Outreach Member Role: Lifetime Consulting Physician Address: [address] [facility] [place], [place] [address] Telecom: Name: Brenda Mackenzie RN Position: [facility] RN Member Role: Primary Care Nurse Name: Elsa Hawkins RN Position: [facility] RN Member Role: Primary Care Nurse Name: Malathi Borges RN Position: [facility] RN Member Role: Primary Care Nurse Name: Riley Urias MD Position: [facility] Renal MD Member Role: Lifetime Consulting Physician Address: [address] [facility] [place], [place] [address] Telecom: Name: Heide Carrero RN Position: [facility] RN Member Role: Primary Care Nurse Name: Janett Venegas RN Position: [facility] AMB Nurse Member Role: Primary Care Nurse Name: Jorgito Kim RN Position: [facility] RN Member Role: Primary Care Nurse Name: Alberta Doherty RN Position: [facility] SN RN Member Role: Primary Care Nurse Name: Caprice Hinds RN Position: [facility] RN Member Role: Primary Care Nurse Name: Gillian Uriostegui RN Position: [facility] Hospital Manufacturing Shift Supervisor Member Role: Primary Care Nurse Name: Heide Soriano RN Position: [facility] RN Member Role: Primary Care Nurse Name: Carie Geiger RN Position: [facility] RN Member Role: Primary Care Nurse Care Team Related Persons Name: ALEXANDER DELFINA Name: ANMOL MUNOZ Insurance Providers Guarantor name: MATHIEU MUNOZ Health Plan Information #: 1 Payer: MEDICARE PART B OUTPT Member Number: [id number] Policy Number: NA Group Number: NA Health Plan Information #: 2 Payer: JENNIFER CHAIDEZ Member Number: [id number] Policy Number: NA Group Number: NA
--- OUTSIDE RECORDS SUMMARY | 2024-07-16 13:05 | XMS_ITS ---
Author Organization [facility] Address [address] [place] [address] Care Team Providers Care Body Service Team Member Name Role Phone Gilles THOMPSON, Jonathan Primary Care Provider Sandeep Diallo Unavailable [phone] Allergies Allergen (clinical drug ingredient) Drug/Non Drug Allergy documented on EMR Reaction Allergy Type Onset Date Status povidone-iodine Betadine anaphylaxis- any Fish Drug Allergy Active tamsulosin Flomax nightmares Drug Allergy Activ e REASON FOR VISIT At Risk Footcare, Painful Nail(s) aggrevated by shoes and causing difficulty standing/walking, Wart(s) Medications Medication SIG (Take, Route, Frequency, Duration) Notes Start Date End Date Status Coumadin Active Furosemide Active Flovent HFA Active metFORMIN HCl Active Glimepiride Active Aspir-81 Not-Taking oxyBUTYnin Not-Takin g Valsartan Not-Taking Aspirin 325 MG Orally Not-T aking amLODIPine Besylate 10 MG TAKE 1 TABLET BY MOUTH EVERY DAY Oral for 15 Not-Taking Extra Depth Orthopedic Shoes, (1) Pair With (3) Pair Custom Heat Molded Multidensity Innersoles Dx: 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), Hammertoe Foot Deformity(M20.41,M20.42) , Preulcerative Skin Lesion(s)(L85.1) Wear Daily for 365 days 10/27/2023 Active Solifenacin Succinate 10 MG 1 tablet Once a day Active PreserVision AREDS 2 Active Trelegy Ellipta Acti ve ProAir HFA 108 (90 Base) MCG/ACT INHALE 2 PUFFS BY MOUTH EVERY 4 HOURS NEEDED Inhalation for 16 Active Omeprazole Active Social History Tobacco Use: Social History Observation Description Date Details (start date - stop date) Former Smoker NA - 05/22/2015 Tobacco Use/Smoking Question Answer Notes Are you a: former smoker When did you stop smoking? 05/22/2015 Additional Findings: Tobacco Non-User Cu rrent non-smoker,Ex-very heavy cigarette smoker (40+/day) Alcohol Screen Question Answer Notes Did you have a drink containing alcohol in the p ast year? No Points 0 Interpretation Negative Tobacco use other than smoking: Question Answer Notes Are you an other tobacco user? No Vital Signs Height 5ft 10 in in 04/27/2024 Weight 237 lbs 04/27/2024 BMI 34 kg/m2 04/27/2024 Procedures Procedure Date Ordered Date Performed Result Body Sit e 58061-FHKIZZJ NAIL, 6 OR MORE 04/27/2024 N/A 18312-Xcvi Destruction, 1-14 04/27/2024 N/A 40043-GGYR SKIN LESIONS, 2 TO 4 04/27/2024 N/A Encounters Encounter Location Date Provider Diagnosis [facility] [address] [address] 04/27/2024 Sandeep Buckley Type 2 diabetes mellitus with diabetic peripheral angiopathy without gangrene E11.51 ; Plantar wart B07.0 ; Tinea unguium B35.1 ; Pain in right toe(s) M79.674 ; Pain in left toe(s) M79.675 ; Pain in right foot M79.671 and Pain in left foot M79.672 Assessments Encounter Date Diagnosis (ICD Code) Assessment Notes Treatment Notes Treatment Clinical Notes Section Notes 04/27/2024 Type 2 diabetes mellitus with diabetic peripheral angiopathy without gangrene (ICD-10 - E11.51) 04/27/2024 Plantar wart (ICD-10 - B07.0) 04/27/2024 Tinea unguium (ICD-10 - B35.1) 04/27/2024 Pain in right toe(s) (ICD-10 - M79.674) 04/27/2024 Pain in left toe(s) (ICD-10 - M79.675) 04/27/2024 Pain in right foot (ICD-10 - M79.671) 04/27/2024 Pain in left foot (ICD-10 - M79.672) Plan Of Treatment Pending Test Test Name Order Date 43301-ODIYMOD NAIL, 6 OR MORE 04/27/2024 77330-Riph Destruction, 1-14 04/27/2024 64995-OMFZ SKIN LESIONS, 2 TO 4 04/27/20 Next Appt Details Follow Up: prn, Reason: Provider Name:Sandeep Buckley , 08/12/2024 08:30:00 AM, [address], [address], [place], [address], Procedure Notes * Category Sub-Category Detail Notes Wart Treatment Procedure Verrucae were de brided to pin-point bleeding margins with sterile 15 surgical blade, silver nitrate chemocautery applied, recomm. immune-boosting meds such as zinc, recomm. follow up with topical chemosurgical agents, Pt defers any other forms of tx - 56562 Debride Nail 6-10 Nail debridement Performance o f this nail treatment by a nonprofessional would put this patients foot and overall health at risk. Therefore, nail debridement was performed extensively to reduce/remove overall nail length, girth, thickness, subungual debris, and necrotic tissue, by manual and/or electrical means through the use of a nail nipper and/or dremel-type fiberglass grinder, to a more viable healthy nail plate or bed tissue 6-10. Silver nitrate used for any petechial bleeding as necessary. Definitive antifungal treatment options have been reviewed and discussed with the patient. The patient chooses, no pharmaceutical tx - 47657 Keratoma Treatment Parring or Cutting o f Benign Hyperkeratotic Lesion(s) (-56) 2-4 Lesions - The Benign hyperkeratotic lesions, as described above were pared, and/or cut utilizing a sterile 15 blade, tissue nippers, and/or dremel - 41738 , Q8 Progress Notes * Otis MUNOZDOB: [birth year] (73 yo M)Acc No.[id number]:04/27/2024 Progress Notes Patient:?Sonjapolo Otis Choi Provider:?Sandeep Buckley DPM :1950???Age:73 Y???Sex:Male Adolfo e:04/27/2024 Address: [facility], [id number] Pcp:Jonathan Campoverde MD Subjective: * Chief Complaints: * ???At Risk FootcarePainful N ail(s) aggrevated by shoes and causing difficulty standing/walkingWart(s) * HPI: ???At Risk footcare:?Pt States Last PCP Visit:?Date?01/16/2024 * ROS:?General/Constitutional:?Nausea?denies.?Vomiting?denies.?Hunger Thirst?denies.?Loss appetite?denies.?Chills?denies.?Fatigue?denies.?Fever?denies.?Night Sweats?denies.?Unexplained weight loss?denies.?Unexplained weight gain?denies.?HEENTM:?Dentures?admits.?Dizziness?denies.?Glasses/contacts?admits.?Retinopathy?de nies.?Blurred/double vision?denies.?TMJ?denies.?Discharge/drainage?denies.?Implants?denies.?Sore throat?denies.?Dental implants?denies.?Hard of hearing ?admits.?Difficulty chewing/swallowing/speaking?denies.?Nose bleeds?denies.?Sore mouth?denies.?Respiratory:?On Oxygen?denies.?Pneumonia/pleurisy?denies.?Bronchitis?denies.?Emphysema?denies.?C oughing?admits.?Cough blood?denies.?Shortness of breath?admits.?Wheezing?admits.?Cardiovascular:?Pacemaker?denies.?MVP?denies.?WPW?denies.?CHF?denies.?Heart attack?denies.?Septal defect?denies.?Rapid beat?denies.?Chest pain ?denies.?Atrial Fib.?denies.?Murmur/Palpitations?denies.?Gastrointestinal:?Hemorrhoids?denies.?Stomach/Abdominal pain?denies.?Dark blood stool?denies.?Irritable bowel ?denies.?Constipation?denies.?Diarrhea?denies.?Hematology:?Swelling?denies.?Clots?denies.?Varicose Veins?denies.?Bruising?admits, on aspirin.?Bleeding problem?admits, on anticoagulants.?Genitourinary:?Blood urine?denies.?Frequent/Painfu/urination/bladder control?denies.?Kidney stones?denies.?Infection (UTI)?denies.?Nephropathy?denies.?sex trans dis (STD)?denies.?Prostate?denies.?Musculoskeletal:?Hammertoes?admits.?Bunions?admits.?Back Pain?denies.?Muscle Cramps/ Resting?denies.?Muscle cramps / walking?denies.?Generalized aches and pains?denies.?Weakness?denies.?Integ.:?Her?denies.?Scars?denies.?Corns/calluses?admits.?Ingrown nails?admits.?Painful nails?admits.?Open Sores?denies.?Rashes?denies.?Neurologic:?Difficulty sleeping?denies.?Brain disorder?denies.?Numbness?denies.?Balance trouble?denies.?Confusion?denies.?Fainting/blackouts?denies.?Tingling?denies.?Tr emors?denies.? * Medical History:? * Surgical History:?rj pr ocedure 01/2004colon 03/22/2015cataract surgery 06/2018biopsy prostate 11/2022lasik 06/20/23 * Hospitalization/Major Diagno stic Procedure:?[facility] 01/07/18-01/10/18[facility] Dehydration 05/21/18 & 05/22/18Cellulitis on lt leg 09/16/2018-09/18/2018[facility]- [place] [place] [place] - [place] 3 day stay - Kidney Stones 03/04/24-03/07[place] [place] * Family History:?Mother: dece ased, diagnosed with Diabetic - NIDDM, Other malignant neoplasm of unspecified site.?Father: .? * Social History:?Tobacco Use:?Tobacco Use/Smoking?Are you a:?former smoker ?When did you stop smoking??05/22/2015 ?Additional Findings: Tobacco Non-User?Current non-smoker,Ex-very heavy cigarette smoker (40+/day) ?Tobacco use other than smoking?Are you an other tobacco user??No ???Drugs/Alcohol:?Drugs?Have you used drugs other than those for medical reasons in the past 12 months??No ?Alcohol Screen?Did you have a drink containing alcohol in the past year??No ?Points?0 ?Interpretation?Negative ???Miscellaneous:?Caffeine: yes, frequency:. ?no Children. ?no Exercise. ?Marital status: single. ?Occupation: Retired. * Medications:?TakingCoumadin Flovent HFA Furosemide Glimepiride metFORMIN HCl Omeprazole PreserVision AREDS 2 Solifenacin Succinate 10 MG Tablet 1 tablet Once a dayProAir HFA 108 (90 Base) MCG/ACT Aerosol Solution INHALE 2 PUFFS BY MOUTH EVERY 4 HOURS NEEDED Inhalation Trelegy Ellipta Extra Depth Orthopedic Shoes, (1) Pair With (3) Pair Custom Heat Molded Multidensity Innersoles . Dx: 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), Hammertoe Foot Deformity(M20.41,M20.42), Preulcerative Skin Lesion(s)(L85.1) Wear DailyTaking Coumadin Taking Flovent HFA Taking Furosemide Taking Glimepiride Taking metFORMIN HCl Taking Omeprazole Taking PreserVision AREDS 2 Taking Solifenacin Succinate 10 MG Tablet 1 tablet Once a dayTaking ProAir HFA 108 (90 Base) MCG/ACT Aerosol Solution INHALE 2 PUFFS BY MOUTH EVERY 4 HOURS NEEDED Inhalation Taking Trelegy Ellipta Taking Extra Depth Orthopedic Shoes, (1) Pair With (3) Pair Custom Heat Molded Multidensity Innersoles . Dx: 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), Hammertoe Foot Deformity(M20.41,M20.42), Preulcerative Skin Lesion(s)(L85.1) Wear DailyNot-Taking/PRNAspir-81 Valsartan oxyBUTYnin amLODIPine Besylate 10 MG Tablet TAKE 1 TABLET BY MOUTH EVERY DAY Oral Aspirin 325 MG Tablet Orally Medication List reviewed and reconciled with the patientNot-Taking/PRN Aspir-81 Not-Taking/PRN Valsartan Not-Taking/PRN oxyBUTYnin Not-Taking/PRN amLODIPine Besylate 10 MG Tablet TAKE 1 TABLET BY MOUTH EVERY DAY Oral Not-Taking/PRN Aspirin 325 MG Tablet Orally Medication List reviewed and reconciled with the patient * Allergies:?Betadine: anaphyl axis- any FishFlomax: nightmaresyes[Allergies Verified] Objective: * Vitals:?Ht:5ft 10 in, Wt:237 , BMI:34, Shoe size:10E, BS:125, Ht-cm: 177.8 cm, Wt-k.5 kg. * ???Past Orders: ???Lab:HEMOGLOBIN A1C (GLYCO HEMOGLOBIN) (Order Date - 01/12/2024) (Collection Date - 01/12/2024) ? Value Reference Range ?HEMOGLOBIN A1C % (HH) 6 * Examination: ???Vascular: ?DP PULSES(B):? 0/4, LEFT, 1/4, RIGHT.?PT PULSES(B):? 0/4, B/L.?CAPILLARY FILL TIME:? delayed, all digits, B/L.?TROPHIC CONDITION-TEXTURE/ELASTICITY/TURGOR/HAIR GROWTH(B):? decreased, with sparse to absent hair growth, B/L.?TEMPERTURE GRADIENT(C):? decreased, cool to cool, proximal to distal, B/L.?PIGMENTATION:? rubrous, B/L.?EDEMA(C):? 2/4, non-pitting, without aching pain, B/L, Leg(s), Ankle(s), Feet.?CLAUDICATION(C):?denies, B/L.?REST PAIN:?denies, B/L.?Nails: ?NAILS are:?Elongated, overgrown, dystrophic, lytic, greater than 3mm thick, discolored and friable with crumbly malodorous subungual debris, with pain on palpation , T1, T2, T3, T4, T6, T7, T8, T9.?Dermatologic: ?SKIN FINDINGS:?Skin exam reveals Keratotic lesion(s) located at, Medial plantar, IPJ, TA, Medial plantar, IPJ, T5, SUB MTH (s), 1, B/L .?VERRUCA:?STILL, reveals Multiple ( 10), multi-loculated , mosaic, round, raised, flat-topped, petechial bleeding papulae(s), with cauliflower appearance and interrruption of skin lines, with pain to lateral compression, and size estimated at 3-4mm diameter, plantar Forefoot, Midfoot, Heel, B/L .? Assessment: * Assessment: 1.?Type 2 diabetes mellitus with diabetic peripheral angiopathy without gangrene - E11.51?2.?Plantar wart - B07.0 (Primary), B/L?3.?Tinea unguium - B35.1?4.?Pain in right toe(s) - M79.674?5.?Pain in left toe(s) - M79.675?6.?Pain in right foot - M79.671?7.?Pain in left foot - M79.672? Plan: * Treatment: 2.?Type 2 diabetes mellitus with diabetic peripheral angiopathy without gangrene?Procedure: 73512-TYII SKIN LESIONS, 2 TO 4 3.?Tinea unguium?Procedure: 02818-YQGEAPU NAIL, 6 OR MORE * Procedures:?Debride Nail 6-10:?Nail debridement?Performance of this nail treatment by a nonprofessional would put this patients foot and overall health at risk. Therefore, nail debridement was performed extensively to reduce/remove overall nail length, girth, thickness, subungual debris, and necrotic tissue, by manual and/or electrical means through the use of a nail nipper and/or dremel-type fiberglass grinder, to a more viable healthy nail plate or bed tissue 6-10. Silver nitrate used for any petechial bleeding as necessary. Definitive antifungal treatment options have been reviewed and discussed with the patient. The patient chooses, no pharmaceutical tx - 63002.?Keratoma Treatment:?Parring or Cutting of Benign Hyperkeratotic Lesion(s)?(-56) 2-4 Lesions - The Benign hyperkeratotic lesions, as described above were pared, and/or cut utilizing a sterile 15 blade, tissue nippers, and/or dremel - 60960 , Q8.?Wart Treatment:?Procedure?Verrucae were debrided to pin-point bleeding margins with sterile 15 surgical blade, silver nitrate chemocautery applied, recomm. immune-boosting meds such as zinc, recomm. follow up with topical chemosurgical agents, Pt defers any other forms of tx - 49471.? * Procedure Codes:?63795 DEBRI DE NAIL, 6 OR MORE, Modifiers: XS 22528 Wart Destruction, 1-14, Modifiers: XS 58673 TRIM SKIN LESIONS, 2 TO 4, Modifiers: XS , Q8 * Follow Up:?prn * Images: * Sign off status: Completed true * Provider:?Sandeep Buckley DPM Date:?2023 Generated for Shekhar mata/Adelaide/Jerord on:?07/16/2024 01:05 PM EST History and Physical Notes * HPI (History of Present Illness) Category Sub-Category Detail Notes Category Not es At Risk footcare Pt States Last PCP Visit: Date: Examination Category Sub-Category Detail Notes Category Not es Dermatologic SKIN FINDINGS: Skin exam reveal s Keratotic lesion(s) located at, Medial plantar, IPJ, TA, Medial plantar, IPJ, T5, SUB MTH (s), 1, B/L VERRUCA: STILL, reveals Multi ple ( 10), multi-loculated , mosaic, round, raised, flat-topped, petechial bleeding papulae(s), with cauliflower appearance and interrruption of skin lines, with pain to lateral compression, and size estimated at 3-4mm diameter, plantar Forefoot, Midfoot, Heel, B/L Vascular DP PULSES(B): 0/4, LEFT, 1/4, RIGHT PT PULSES(B): 0/4, B/L CAPILLARY FILL TIME: delayed, all digits , B/L TEMPERTURE GRADIENT(C): decreased, cool to cool, proximal to distal, B/L TROPHIC CONDITION-TEXTURE/ELASTICITY/TURGOR/HAIR GROWTH(B): decreased, with sparse to absent hair gr owth, B/L EDEMA(C): 2/4, non-pitting, wi thout aching pain, B/L, Leg(s), Ankle(s), Feet CLAUDICATION(C): denies, B/L REST PAIN: denies, B/L PIGMENTATION: rubrous, B/L Nails NAILS are: Elongated, overg rown, dystrophic, lytic, greater than 3mm thick, discolored and friable with crumbly malodorous subungual debris, with pain on palpation , T1, T2, T3, T4, T6, T7, T8, T9
--- OUTSIDE RECORDS SUMMARY | 2024-07-16 13:05 | XMS_ITS ---
Author Organization [facility] Address [address] [place] [address] Care Team Providers Care Manager Of Network Name Role Phone Gilles THOMPSON, Jonathan Primary Care Provider Sandeep Diallo Unavailable [phone] Allergies Allergen (clinical drug ingredient) Drug/Non Drug Allergy documented on EMR Reaction Allergy Type Onset Date Status povidone-iodine Betadine anaphylaxis- any Fish Drug Allergy Active tamsulosin Flomax nightmares Drug Allergy Activ e REASON FOR VISIT Wart(s) Medications Medication SIG (Take, Route, Frequency, Duration) Notes Start Date End Date Status ProAir HFA 108 (90 Base) MCG/ACT INHALE 2 PUFFS BY MOUTH EVERY 4 HOURS NEEDED Inhalation for 16 Active Solifenacin Succinate 10 MG 1 tablet Once a day Active metFORMIN HCl Active PreserVision AREDS 2 Active Omeprazole Active Flovent HFA Active Coumadin Active Aspirin 325 MG Orally Not-T aking Glimepiride Active Furosemide Active Aspir-81 Not-Taking Extra Depth Orthopedic Shoes, (1) Pair With (3) Pair Custom Heat Molded Multidensity Innersoles Dx: 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), Hammertoe Foot Deformity(M20.41,M20.42) , Preulcerative Skin Lesion(s)(L85.1) Wear Daily for 365 days 10/27/2023 Active amLODIPine Besylate 10 MG TAKE 1 TABLET BY MOUTH EVERY DAY Oral for 15 Not-Taking oxyBUTYnin Not-Takin g Valsartan Not-Taking Trelegy Ellipta Acti ve Social History Tobacco Use: Social History Observation [...] Vital Signs Height 5ft 10 in in 06/04/2024 Weight 237 lbs 06/04/2024 BMI 34 kg/m2 06/04/2024 Procedures Procedure Date Ordered Date Performed Result Body Sit e 57758-Jkiy Destruction, 1-14 06/04/2024 N/A Encounters Encounter Location Date Provider Diagnosis [facility] [address] [address] 06/04/2024 Sandeep Buckley Right foot pain M79.671 ; Plantar wart B07.0 and Left foot pain M79.672 Assessments Encounter Date Diagnosis (ICD Code) Assessment Notes Treatment Notes Treatment Clinical Notes Section Notes 06/04/2024 Right foot pain (ICD-10 - M79.671) 06/04/2024 Plantar wart (ICD-10 - B07.0) 06/04/2024 Left foot pain (ICD-10 - M79.672) Plan Of Treatment Pending Test Test Name Order Date 77507-Gjrb Destruction, 1-06/04/2024 Next Appt Details Follow Up: prn, Reason: Provider Name:Sandeep Buckley , 08/12/2024 08:30:00 AM, [address] , [address], [place], [address], Procedure Notes * Category Sub-Category Detail Notes Wart Treatment Procedure Verruca were phan rided to pin-point bleeding margins with sterile 15 surgical blade, silver nitrate chemocautery applied, recomm. immune-boosting meds such as zinc, recomm. follow up with topical chemosurgical agents, Pt defers any other forms of tx - 15279 , DIABETES: Any more invasive procedure to wart deferred due to diabetes risk Progress Notes * Otis MUNOZDOB: [birth year] (73 yo M)Acc No.[id number]:06/04/2024 Progress Notes Patient:?Otis Munoz Provider:?Sandeep Buckley DPM :1950???Age:73 Y???Sex:Male Adolfo e:06/04/2024 Address:[address] [place], [place] [id number] Pcp:Jonathan Campoverde MD Subjective: * Chief Complaints: * ???Wart(s) * HPI: ???Skin problems:?Pt States PCP Visit: ?DATE?01/16/2024 * ROS:?General/Constitutional:?Nausea?denies.?Vomiting?denies.?Hunger Thirst?denies.?Loss appetite?denies.?Chills?denies.?Fatigue?denies.?Fever?denies.?Night Sweats?denies.?Unexplained weight loss?denies.?Unexplained [...] trouble?denies.?Confusion?denies.?Fainting/blackouts?denies.?Tingling?denies.?Tr emors?denies.? * Medical History:? * Surgical History:?whipple pr ocedure 01/2004colon 03/22/2015cataract surgery 06/2018biopsy prostate 11/2022lasik 06/20/23 * Hospitalization/Major Diagno stic Procedure:?[facility] 01/07/18-01/10/18[facility] Dehydration 05/21/18 & 05/22/18Cellulitis on lt leg 09/16/2018-09/18/2018[facility]- covid 07/17-08[facility] 10[facility] [place] - pneumonia, 3 day stay - Kidney Stones 03/04/24[place]03[place]07[place] [place] * Family History:?Mother: dece [...] 10 in, Wt:237 , BMI:34, Shoe size:10E, BS:104, Ht-cm: 177.8 cm, Wt-k.5 kg. * Examination: ???Dermatologic: ?VERRUCA:?STILL, reveals Multiple ( 10), multi-loculated , mosaic, round, raised, flat-topped, petechial bleeding papulae(s), with cauliflower appearance and interrruption of skin lines, with pain to lateral compression, and size estimated at 3-4mm diameter, plantar Forefoot, Midfoot, Heel, B/L.? Assessment: * Assessment: 1.?Plantar wart - B07.0 (Gretchen sharif), B/L, Chronic?2.?Right foot pain - M79.671?3.?Left foot pain - M79.672? Plan: * Treatment: * Procedures:?Wart Treatment:?Procedure?Verruca were debrided to pin-point bleeding margins with sterile 15 surgical blade, silver nitrate chemocautery applied, recomm. immune-boosting meds such as zinc, recomm. follow up with topical chemosurgical agents, Pt defers any other forms of tx - 42983 , DIABETES: Any more invasive procedure to wart deferred due to diabetes risk.? * Procedure Codes:?72910 Wart Destruction, 1-14 * Follow Up:?prn * Images: * Sign off status: Completed true * Provider:?Sandeep Buckley DPM Date:?2023 Generated for Shekhar mata/Adelaide/Jerrod on:?07/16/2024 01:04 PM EST History and Physical Notes * HPI (History of Present Illness) Category Sub-Category Detail Notes Category Not es Skin problems Pt States PCP Visit: DATE: 01/16/2024 Examination Category Sub-Category Detail Notes Category Not es Dermatologic VERRUCA: STILL, reveals M ultiple ( 10), multi-loculated , mosaic, round, raised, flat-topped, petechial bleeding papulae(s), with cauliflower appearance and interrruption of skin lines, with pain to lateral compression, and size estimated at 3-4mm diameter, plantar Forefoot, Midfoot, Heel, B/L
--- OUTSIDE RECORDS SUMMARY | 2024-07-16 13:05 | XMS_ITS | Continuity of Care Document ---
Author Organization [facility] Address [facility] [place] [address]- Care Team Providers Care Installers Mechanical Name Role Phone Gilles THOMPSON, Jonathan Neumann Primary Care Physician Encounter [facility] Date(s): 06/10/24 - 07/10/24 [facility] [address] [place] [address]- Attending Physician: Alejandro Dunaway Admitting Physician: Alejandro Dunaway Referring Physician: Alejandro Dunaway Encounter Type: Triage Allergies, Adverse Reactions, Alerts Substance Criticality Severity Reaction Reaction Severity Status Flomax insomnia Active Magnevist Low criticality Mild patient felt sick/weak after injection Resolved Fish SOB, swelling Active Nicotine Patch rash,itching Ac tive Immunizations Given and Recorded Vaccine Date Status Refusal Reason RSV vaccine preF3, recombinant 10/27/23 Recorded pneumococcal 20-valent conjugate vaccine 08/06/22 Recorded [id number] 12y+ bivalent booster vax 08/06/22 Recorded SARS-CoV-2 mRNA ([id number]) vax 11/29/21 Recorded SARS-CoV-2 (COVID-19) mRNA BNT-162b2 vac 07/09/21 Recorded SARS-CoV-2 (COVID-19) mRNA BNT-162b2 vac 11/09/20 Recorded SARS-CoV-2 (COVID-19) mRNA BNT-162b2 vac 10/19/20 Recorded influenza virus vaccine, inactivated 04/25/21 Octavio rded influenza virus vaccine, inactivated 05/19/19 Octavio rded influenza virus vaccine, inactivated 05/11/18 Octavio rded influenza virus vaccine, inactivated 05/14/17 Octavio rded influenza virus vaccine, inactivated 10/3/16 Octavio rded pneumococcal 23-valent vaccine 03/28/17 Recorded pneumococcal 23-valent vaccine 02/07/10 Given Medications albuterol 0.083% inhalation solution 3 mL, Inhalation, Every 6 hours, PRN NEEDED FOR WHEEZING, # 375 mL, 5 Refills, Maintenance, 06/22/24 4:21:00 PM EST, [id number], 179, cm, 06/10/24 8:17:00 EST, Height, 111, [...] Refills, Maintenance, 06/01/24 9:42:00 AM EDT, Capsule, [facility]/pharmacy #[id number], Partial fill upon patient request if the prescription is for a schedule II opioid drug., 179, cm, 06/01/24 9:28:00 EDT, Height, 111, kg, 04/14/24 7:24:00 EDT, Dry Weight Start Date: 06/01/24 Status: Ordered Quantity: 40.0 Unit: capsule Repeat number: 2 Indication: Constipation, unspecified fluticasone 50 mcg/inh nasal spray 0 Refills, Maintenance, 6/22/21 7:46:00 AM EDT, Partial fill upon patient [...] 0 Refills, Maintenance, 10/22/21 10:29:00 AM EDT, [facility], Partial fill upon patient request if [...] Refills, Maintenance, 10/23/21 3:23:00 PM EDT, Tablet, [facility]/pharmacy #[id number], Partial fill upon patient request if [...] Refills, Maintenance, 07/18/23 12:27:00 PM EST,ER Capsule, [facility]/pharmacy #[id number], Partial fill upon patient request if [...] Maintenance, 05/10/20 12:15:00 PM EDT, EC Capsule, [facility]/pharmacy #[id number], 180, cm, 03/25/20 12:53:00 EDT, Height, [...] Refills, Soft Stop, 06/01/24 9:47:00 AM EDT, [facility]/pharmacy #[id number], Partial fill upon patient request if [...] 6 Refills, Maintenance, 01/13/24 4:40:00 PM EDT, [facility], 180, cm, 12/11/23 10:39:00 EDT, Height, 109.5, kg, 11/17/23 2:39:00 EDT, Dry Weight Start Date: 01/13/24 Status: Ordered Quantity: 60.0 Unit: Unknown Repeat number: 1 valsartan 40 mg oral tablet 1, tablet, By Mouth, 2 times a day, # 180 tablet, Refills 1, Maintenance, 06/14/24 7:26:00 AM EST, Route to Pharmacy Electronically, [id number], 179, cm, 06/10/24 8:17:00 EST, Height, 111, [...] Refills, Maintenance, 10/22/21 10:11:00 AM EDT, Tablet, [facility], Partial fill upon patient request [...] diabetes mellitus with peripheral angiopathy Confirmed Active Vital Signs Most recent to oldest [Reference Range]: 1 2 3 Height 180 cm (05/10/19 4:01 PM) 180 cm (04/22/19 11:25 AM) 180 cm (03/17/19 9:44 AM) Weight 113.5 kg (05/10/19 4:01 PM) 114.0 kg (04/22/19 11:25 AM) 113.16 kg (03/17/19 9:44 AM) Social History Social History Type Response Tobacco Use: Former Smoker. Sex Sex Representation Male (finding) EKG study * Event Display: EKG Authored Date: Cardiology * Event Display: Cardiology Office Note, Non-BH Authored Date: * Event Display: Non Cardiovascular Results Authored Date: Patient Care team information Care Team Personnel Name: Gilda Atkinson RN Position: [facility] RN Member Role: Primary Care Nurse Name: Rina Stringer RN Position: S RN Member Role: Primary Care Nurse Name: Natalya Yost RN Position: S RN Member Role: Primary Care Nurse Name: Emily Tapia RN Position: S RN Member Role: Primary Care Nurse Name: Estela Lugo RN Position: S RN Member Role: Primary Care Nurse Name: Matthew Cueto RN Position: S RN Member Role: Primary Care Nurse Name: Haley Irene RN Position: [facility] RN Member Role: Primary Care Nurse Name: Kaley Feng RN Position: [facility] RN Member Role: Primary Care Nurse Name: Natalya Davis RN Position: [facility] RN Member Role: Primary Care Nurse Name: Jonathan Campoverde MD Position: Reference Physician Member Role: PCP Address: [address] [place] [address] Telecom: Name: Kaylene Reid RN Position: [facility] RN Member Role: Primary Care Nurse Name: Cedric Dodson RN Position: [facility] RN Member Role: Primary Care Nurse Name: Cory Zhou RN Position: [facility] RN Member Role: Primary Care Nurse Name: Deni Gramajo MD Position: [facility] Outreach Member Role: Lifetime Consulting Physician Address: [facility] [address] [facility] [place], [place] [address] Telecom: Name: Brenda Mackenzie RN Position: [facility] RN Member Role: Primary Care Nurse Name: Elsa Hawkins RN Position: [facility] RN Member Role: Primary Care Nurse Name: Malathi Borges RN Position: [facility] RN Member Role: Primary Care Nurse Name: Riley Urias MD Position: [facility] Renal MD Member Role: Lifetime Consulting Physician Address: [address] [place] [address] [address] [facility] [place], [place] [address] Telecom: Name: Heide Carrero RN Position: [facility] RN Member Role: Primary Care Nurse Name: Janett Venegas RN Position: [facility] AMB Nurse Member Role: Primary Care Nurse Name: Jorgito Kim RN Position: [facility] RN Member Role: Primary Care Nurse Name: Alberta Doherty RN Position: [facility] SN RN Member Role: Primary Care Nurse Name: Caprice Hinds RN Position: [facility] RN Member Role: Primary Care Nurse Name: Gillian Uriostegui RN Position: [facility] Hospital Distribution Center Manager Member Role: Primary Care Nurse Name: Heide Soriano RN Position: [facility] RN Member Role: Primary Care Nurse Name: Carie Geiger RN Position: [facility] RN Member Role: Primary Care Nurse Care Team Related Persons Name: DELFINA MUNOZ Name: ANMOL MUNOZ Insurance Providers Guarantor name: MATHIEU MUNOZ Health Plan Information #: 1 Payer: MEDICARE PART B OUTPT Member Number: NA Policy Number: NA Group Number: NA Health Plan Information #: 2 Payer: JENNIFER CHAIDEZ Member Number: NA Policy Number: NA Group Number: NA
--- OUTSIDE RECORDS SUMMARY | 2024-07-16 13:05 | XMS_ITS ---
Author Organization [facility] Address [address] [place] [address] Care Team Providers Care Bicycle Courier Name Role Phone Gilles THOMPSON, Jonathan Primary Care Provider Sandeep Diallo Unavailable [phone] Allergies Allergen (clinical drug ingredient) Drug/Non Drug [...] 4 HOURS NEEDED Inhalation for 16 Active PreserVision AREDS 2 Active Solifenacin Succinate 10 MG 1 tablet Once a day Active metFORMIN HCl Active Omeprazole Active Furosemide Active Glimepiride Active Coumadin Active Flovent HFA Active Aspirin 325 MG Orally Not-T aking oxyBUTYnin Not-Takin g amLODIPine Besylate 10 MG TAKE 1 TABLET BY MOUTH EVERY DAY Oral for 15 Not-Taking Aspir-81 Not-Taking Valsartan Not-Taking Extra Depth Orthopedic Shoes, (1) Pair With (3) Pair Custom Heat Molded Multidensity Innersoles Dx: 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), Hammertoe Foot Deformity(M20.41,M20.42) , Preulcerative Skin Lesion(s)(L85.1) Wear Daily for 365 days 10/27/2023 Active Trelegy Ellipta Acti ve Social History Tobacco [...] tobacco user? No Vital Signs Height 5ft 10in in 07/08/2024 Weight 237 lbs 07/08/2024 BMI 34 kg/m2 07/08/2024 Procedures Procedure Date Ordered Date Performed Result Body Sit e 80011-RZWNIXF NAIL, 6 OR MORE 07/08/2024 N/A 60900-Dqan Destruction, 1-14 07/08/2024 N/A 36338-ZXZN SKIN LESIONS, 2 TO 4 07/08/2024 N/A Encounters Encounter Location Date Provider Diagnosis [facility] [place] [address] [place] [id number] 07/08/2024 Sandeep Buckley Type 2 diabetes mellitus with diabetic peripheral angiopathy without gangrene E11.51 ; Plantar wart B07.0 ; Tinea unguium B35.1 ; Pain in right toe(s) M79.674 ; Pain in left toe(s) M79.675 ; Pain in right foot M79.671 and Pain in left foot M79.672 Assessments Encounter Date Diagnosis (ICD Code) Assessment Notes Treatment Notes Treatment Clinical Notes Section Notes 07/08/2024 Type 2 diabetes mellitus with diabetic peripheral angiopathy without gangrene (ICD-10 - E11.51) 07/08/2024 Plantar wart (ICD-10 - B07.0) 07/08/2024 Tinea unguium (ICD-10 - B35.1) 07/08/2024 Pain in right toe(s) (ICD-10 - M79.674) 07/08/2024 Pain in left toe(s) (ICD-10 - M79.675) 07/08/2024 Pain in right foot (ICD-10 - M79.671) 07/08/2024 Pain in left foot (ICD-10 - M79.672) Plan Of Treatment Pending Test Test Name Order Date 45070-DTGTDBV NAIL, 6 OR MORE 07/08/2024 04550-Avvu Destruction, 1-14 07/08/2024 83993-NVQX SKIN LESIONS, 2 TO 4 07/08/20 24 Next Appt Details Follow Up: prn, Reason: Provider Name:Sandeep V Ina , 08/12/2024 08:30:00 AM, [address], [place], [address], Procedure Notes * Category Sub-Category Detail Notes Wart Treatment Procedure Verruca, as desc ribed in exam, were debrided to pin-point bleeding margins with sterile 15 surgical blade, silver nitrate chemocautery applied, recomm. immune-boosting meds such as zinc, recomm. follow up with topical chemosurgical agents, Pt defers any other forms of tx - 83834 Debride Nail 6-10 Nail debridement Performance o f this nail treatment by a nonprofessional would put this patients foot and overall health at risk. Therefore, debridement to affected nail(s), as described in exam, was performed extensively to reduce/remove overall nail length, girth, thickness, subungual debris, and necrotic tissue, by manual and/or electrical means through the use of a nail nipper and/or dremel-type salt grinder, to a more viable healthy nail plate or bed tissue 6-10 nails in total. Silver nitrate was used for any petechial bleeding as necessary. Definitive antifungal treatment options, both pharmaceutical and surgical, have been reviewed and discussed with the patient. The patient solely prefers the use of intermittent/as needed professional debridement services for their nail condition and understands the need for additional periodic treatments to maintain effectiveness in symptomatic relief - 35444 Keratoma Treatment Parring or Cutting o f Benign Hyperkeratotic Lesion(s) (-56) 2-4 Lesions - The Benign hyperkeratotic lesions, ( 4) in total, locations as stated and described in exam, were pared, and/or cut utilizing a sterile 15 blade, tissue nippers, and/or power dremel instrumentation - 34607, Q8 Progress Notes * Otis MULLENDOB: [birth year] (73 yo M)Acc No.[id number]:07/08/2024 Progress Note Patient:Otis HOPE Provider:?Sandeep Buckley DPM :1950???Age:73 Y???Sex:Male Adolfo e:07/08/2024 Address:[address] [place], [place] [id number] Pcp:Jonathan Campoverde MD Subjective: * Chief Complaints: * ???At Risk FootcarePainful N ail(s) aggrevated by shoes and causing difficulty standing/walkingWart(s) * HPI: ???At Risk footcare:?Pt States Last PCP Visit:?Date?04/21/2024 * ROS:?General/Constitutional:?Nausea?denies.?Vomiting?denies.?Hunger Thirst?denies.?Loss appetite?denies.?Chills?denies.?Fatigue?denies.?Fever?denies.?Night Sweats?denies.?Unexplained weight loss?denies.?Unexplained [...] 09/16/2018-09/18/2018[facility]- covid 07/17-08/03BM admitted for nine days 10/2021[facility] [place]- kidney stone - pneumonia, 3 day stay - Kidney Stones 03/04/24-03/07[place] [place] * Family History:?Mother: dece ased, diagnosed with Other malignant neoplasm of unspecified site, Diabetic - NIDDM.?Father: .? * Social History:?Tobacco Use:?Tobacco Use/Smoking?Are you [...] past year??No ?Points?0 ?Interpretation?Negative ???Miscellaneous:?Caffeine: yes, frequency:. ?Children: no. ?Exercise: no. ?Marital status: single. ?Occupation: Retired. * Medications:?TakingCoumadin Flovent HFA Furosemide Glimepiride metFORMIN HCl Omeprazole PreserVision AREDS 2 Solifenacin Succinate 10 MG Tablet 1 tablet Once a day ProAir HFA 108 (90 Base) MCG/ACT Aerosol Solution INHALE 2 PUFFS BY MOUTH EVERY 4 HOURS NEEDED Inhalation Trelegy Ellipta Extra Depth Orthopedic Shoes, (1) Pair With (3) Pair Custom Heat Molded Multidensity Innersoles . Dx: 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), Hammertoe Foot Deformity(M20.41,M20.42), Preulcerative Skin Lesion(s)(L85.1) Wear Daily Taking Coumadin Taking Flovent HFA Taking Furosemide Taking Glimepiride Taking metFORMIN HCl Taking Omeprazole Taking PreserVision AREDS 2 Taking Solifenacin Succinate 10 MG Tablet 1 tablet Once a day Taking ProAir HFA 108 (90 Base) MCG/ACT Aerosol Solution INHALE 2 PUFFS BY MOUTH EVERY 4 HOURS NEEDED Inhalation Taking Trelegy Ellipta Taking Extra Depth Orthopedic Shoes, (1) Pair With (3) Pair Custom Heat Molded Multidensity Innersoles . Dx: 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), Hammertoe Foot Deformity(M20.41,M20.42), Preulcerative Skin Lesion(s)(L85.1) Wear Daily Not-Taking/PRNAspir-81 Valsartan oxyBUTYnin amLODIPine Besylate 10 MG Tablet [...] axis- any FishFlomax: nightmaresyes[Allergies Verified] Objective: * Vitals:?Ht: 5ft 10in, Wt:237 , BMI:34, Shoe size: 10E, BS: 110, Ht-cm: 177.8 cm, Wt-k.5 kg. * ???Past Orders: ???Lab:HEMOGLOBIN A1C (GLYCO HEMOGLOBIN) (Order Date - 07/08/2024) (Collection Date & Time - 07/08/2024 08:35 AM) ? Value Reference Range ?TOTAL HEMOGLOBIN (HGBA1C) 5.7 * Examination: ???Vascular: ?DP PULSES(B):? 0/4, LEFT, [...] Forefoot, Midfoot, Heel, B/L.? Assessment: * Assessment: 1.?Type 2 diabetes mellitus with diabetic peripheral angiopathy without gangrene - E11.51???2.?Plantar wart - B07.0 (Primary)???Specify :B/L???3.?Tinea unguium - B35.1???4.?Pain in right toe(s) - M79.674???5.?Pain in left toe(s) - M79.675???6.?Pain in right foot - M79.671???7.?Pain in left foot - M79.672??? Plan: * Treatment: 2.?Type 2 diabetes mellitus with diabetic peripheral angiopathy without gangrene?Procedure: 39789-IXLC SKIN LESIONS, 2 TO 4 3.?Tinea unguium?Procedure: 61153-SUAWFEZ NAIL, 6 OR MORE * Procedures:?Debride Nail 6-10:?Nail debridement?Performance of this nail treatment by a nonprofessional would put this patients foot and overall health at risk. Therefore, debridement to affected nail(s), as described in exam, was performed extensively to reduce/remove overall nail length, girth, thickness, subungual debris, and necrotic tissue, by manual and/or electrical means through the use of a nail nipper and/or dremel-type salt grinder, to a more viable healthy nail plate or bed tissue 6-10 nails in total. Silver nitrate was used for any petechial bleeding as necessary. Definitive antifungal treatment options, both pharmaceutical and surgical, have been reviewed and discussed with the patient. The patient solely prefers the use of intermittent/as needed professional debridement services for their nail condition and understands the need for additional periodic treatments to maintain effectiveness in symptomatic relief - 24898.?Keratoma Treatment:?Parring or Cutting of Benign Hyperkeratotic Lesion(s)?(-56) 2-4 Lesions - The Benign hyperkeratotic lesions, ( 4) in total, locations as stated and described in exam, were pared, and/or cut utilizing a sterile 15 blade, tissue nippers, and/or power dremel instrumentation - 17787, Q8.?Wart Treatment:?Procedure?Verruca, as described in exam, were debrided to pin-point bleeding margins with sterile 15 surgical blade, silver nitrate chemocautery applied, recomm. immune-boosting meds such as zinc, recomm. follow up with topical chemosurgical agents, Pt defers any other forms of tx - 70276.? * Procedure Codes:?40795 DEBRI DE NAIL, 6 OR MORE, Modifiers: XS 47325 Wart Destruction, 1-14, Modifiers: XS 36131 TRIM SKIN LESIONS, 2 TO 4, Modifiers: XS , Q8 * Follow Up:?prn * Images: * Sign off status: Completed true * Provider:?Sandeep Buckley DPM Date:?2023 Generated for Shekhar mata/Adelaide/eTlindasmamy on:?07/16/2024 01:04 PM EST History and Physical Notes * HPI (History of Present Illness) Category Sub-Category Detail Notes Category Not es At Risk footcare Pt States Last PCP Visit: Date: 4 Examination Category Sub-Category Detail Notes Category Not [...]
--- OUTSIDE RECORDS SUMMARY | 2024-07-16 13:05 | XMS_ITS | Patient Health Record ---
Author Organization [facility] Address [address] [place] [address] Care Team Providers Care Garage Attendant Name Role Phone Gilles THOMPSON, Jonathan Primary Care Provider Sandeep Diallo Unavailable [phone] Allergies Allergen (clinical drug ingredient) Drug/Non Drug Allergy documented on EMR Reaction Allergy Type Onset Date Status povidone-iodine Betadine anaphylaxis- any Fish Drug Allergy Active tamsulosin Flomax nightmares Drug Allergy Activ e Results Component Value Reference Range Notes HEMOGLOBIN A1C (GLYCOHEMOGLO BIN) Reviewed date:07/30/2023 08:30:30 AM Interpretation: Performing Lab: Notes/Report: HEMOGLOBIN A1C % (HH) 5.9 HEMOGLOBIN A1C (GLYCOHEMOGLO BIN) Reviewed date:10/27/2023 08:33:54 AM Interpretation: Performing Lab: Notes/Report: HEMOGLOBIN A1C % (HH) 6.1 HEMOGLOBIN A1C (GLYCOHEMOGLO BIN) Reviewed date:02/16/2024 10:22:24 AM Interpretation: Performing Lab: Notes/Report: HEMOGLOBIN A1C % (HH) 6 HEMOGLOBIN A1C (GLYCOHEMOGLO BIN) Reviewed date:07/08/2024 08:35:36 AM Interpretation: Performing Lab: Notes/Report: TOTAL HEMOGLOBIN (HGBA1C) 5.7 Reason For Referral No Information Medications Medication SIG (Take, Route, Frequency, Duration) Notes Start Date End Date Status Furosemide Active oxyBUTYnin Not-Takin g Glimepiride Active amLODIPine Besylate 10 MG TAKE 1 TABLET BY MOUTH EVERY DAY Oral for 15 Not-Taking Coumadin Active Aspir-81 Not-Taking Flovent HFA Active Valsartan Not-Taking Trelegy Ellipta Acti ve Extra Depth Orthopedic Shoes, (1) Pair With (3) Pair Custom Heat Molded Multidensity Innersoles Dx: 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), Hammertoe Foot Deformity(M20.41,M20.42) , Preulcerative Skin Lesion(s)(L85.1) Wear Daily for 365 days 10/27/2023 Active ProAir HFA 108 (90 Base) MCG/ACT INHALE 2 PUFFS BY MOUTH EVERY 4 HOURS NEEDED Inhalation for 16 Active PreserVision AREDS 2 Active Solifenacin Succinate 10 MG 1 tablet Once a day Active metFORMIN HCl Active Aspirin 325 MG Orally Not-T aking Omeprazole Active Immunizations Vaccine Route Administration Date Status Comme nts COVID-19 Pfizer BioNTech Vaccine Unknown 10/19/2020 Adm inistered #2 11/09/20 Influenza Unknown 05/11/2019 Administered Social History Tobacco Use: Social History Observation [...] Are you an other tobacco user? No Problems Problem Type SNOMED Code ICD Code Onset Dates Problem Status W/U Status Risk Notes Problem Acquired hammer toe of right foot (5770809689596 105) Other hammer toe(s) (acquired), right foot (M20.41) Active confirmed Response to treatment,I mprovement Problem Type 2 diabetes mellitus with peripheral angiopathy (103109902) Type 2 diabetes mellitus with diabetic peripheral angiopathy without gangrene (E11.51) Active confirmed Problem Acquired hammer toe of left foot (8757653240845 103) Other hammer toe(s) (acquired), left foot (M20.42) Active confirmed Response to treatment,I mprovement Problem Plantar wart (70019221) Plantar wart (B07.0) Active confirmed Chronic Vital Signs Height 5ft 10in in 07/08/2024 Weight 237 lbs 07/08/2024 BMI 34 kg/m2 07/08/2024 Procedures Procedure Date Ordered Date Performed Result Body Sit e 82054-Aaqv Destruction, 1-14 07/30/2023 N/A 76834-RBOUEBV NAIL, 6 OR MORE 09/03/2023 N/A 69881-Xair Destruction, 1-14 09/03/2023 N/A 54271-YQAY SKIN LESIONS, 2 TO 4 09/03/2023 N/A 30779-Khaq Destruction, 1-14 10/27/2023 N/A 68242-SKWXVAU NAIL, 6 OR MORE 12/01/2023 N/A 25669-Gpjx Destruction, 1-14 12/01/2023 N/A 50028-SPMG SKIN LESIONS, 2 TO 4 12/01/2023 N/A 56802-Mdio Destruction, 1-14 01/12/2024 N/A 15697-TPJGQNF NAIL, 6 OR MORE 02/16/2024 N/A 46796-Nand Destruction, 1-14 02/16/2024 N/A 35555-MMAR SKIN LESIONS, 2 TO 4 02/16/2024 N/A 17371-Crxz Destruction, 1-14 03/18/2024 N/A 20549-UVXHTQA NAIL, 6 OR MORE 04/27/2024 N/A 16472-Qhcy Destruction, 1-14 04/27/2024 N/A 70539-IVFY SKIN LESIONS, 2 TO 4 04/27/2024 N/A 90231-Kthc Destruction, 1-14 06/04/2024 N/A 68407-CHUUTQS NAIL, 6 OR MORE 07/08/2024 N/A 79806-Qtii Destruction, 1-14 07/08/2024 N/A 95420-MOOU SKIN LESIONS, 2 TO 4 07/08/2024 N/A Encounters Encounter Location Date Provider Diagnosis [facility] [address] 07/30/2023 Sandeep Buckley Plantar wart B07.0 ; Pain in right foot M79.671 and Pain in left foot M79.[address] [facility] [address] 09/03/2023 Sandeep Ina Type 2 diabetes mellitus with diabetic peripheral angiopathy without gangrene E11.51 ; Plantar wart B07.0 ; Tinea unguium B35.1 ; Pain in right toe(s) M79.674 ; Pain in left toe(s) M79.675 ; Pain in right foot M79.671 and Pain in left foot M79.[address] [address] 10/27/2023 Sandeep Ina Right foot pain M79.671 ; Plantar wart B07.0 ; Left foot pain M79.672 ; Other hammer toe(s) (acquired), right foot M20.41 and Other hammer toe(s) (acquired), left foot M20.[address] [address] 12/01/2023 Sandeep Buckley Type 2 diabetes mellitus with diabetic peripheral angiopathy without gangrene E11.51 ; Plantar wart B07.0 ; Tinea unguium B35.1 ; Pain in right toe(s) M79.674 ; Pain in left toe(s) M79.675 ; Pain in right foot M79.671 and Pain in left foot M79.[address] [address] 01/12/2024 Sandeep Buckley Right foot pain M79.671 ; Plantar wart B07.0 and Left foot pain M79.[address] [address] 02/16/2024 Sandeep Buckley Type 2 diabetes mellitus with diabetic peripheral angiopathy without gangrene E11.51 ; Plantar wart B07.0 ; Tinea unguium B35.1 ; Pain in right toe(s) M79.674 ; Pain in left toe(s) M79.675 ; Pain in right foot M79.671 ; Pain in left foot M79.672 ; Other hammer toe(s) (acquired), right foot M20.41 and Other hammer toe(s) (acquired), left foot M20.[address] [place] [address] 03/18/2024 Sandeep Ina Right foot pain M79.671 ; Plantar wart B07.0 and Left foot pain M79.[address] [address] 04/27/2024 Sandeep Ina Type 2 diabetes mellitus with diabetic peripheral angiopathy without gangrene E11.51 ; Plantar wart B07.0 ; Tinea unguium B35.1 ; Pain in right toe(s) M79.674 ; Pain in left toe(s) M79.675 ; Pain in right foot M79.671 and Pain in left foot M79.[address] [address] 06/04/2024 Sandeep Ina Right foot pain M79.671 ; Plantar wart B07.0 and Left foot pain M79.[address] [address] 07/08/2024 Sandeep Buckley Type 2 diabetes mellitus with diabetic peripheral angiopathy without gangrene E11.51 ; Plantar wart B07.0 ; Tinea unguium B35.1 ; Pain in right toe(s) M79.674 ; Pain in left toe(s) M79.675 ; Pain in right foot M79.671 and Pain in left foot M79.672 Assessments Encounter Date Diagnosis (ICD Code) Assessment Notes Treatment Notes Treatment Clinical Notes Section Notes 07/30/2023 Pain in right foot (ICD-10 - M79.671) 07/30/2023 Plantar wart (ICD-10 - B07.0) 09/03/2023 Type 2 diabetes mellitus with diabetic peripheral angiopathy without gangrene (ICD-10 - E11.51) 09/03/2023 Plantar wart (ICD-10 - B07.0) 10/27/2023 Plantar wart (ICD-10 - B07.0) 10/27/2023 Right foot pain (ICD-10 - M79.671) 12/01/2023 Type 2 diabetes mellitus with diabetic peripheral angiopathy without gangrene (ICD-10 - E11.51) 01/12/2024 Plantar wart (ICD-10 - B07.0) 01/12/2024 Right foot pain (ICD-10 - M79.671) 12/01/2023 Plantar wart (ICD-10 - B07.0) 02/16/2024 Type 2 diabetes mellitus with diabetic peripheral angiopathy without gangrene (ICD-10 - E11.51) 02/16/2024 Plantar wart (ICD-10 - B07.0) 03/18/2024 Plantar wart (ICD-10 - B07.0) 03/18/2024 Right foot pain (ICD-10 - M79.671) 04/27/2024 Type 2 diabetes mellitus with diabetic peripheral angiopathy without gangrene (ICD-10 - E11.51) 04/27/2024 Plantar wart (ICD-10 - B07.0) 06/04/2024 Plantar wart (ICD-10 - B07.0) 06/04/2024 Right foot pain (ICD-10 - M79.671) 07/08/2024 Type 2 diabetes mellitus with diabetic peripheral angiopathy without gangrene (ICD-10 - E11.51) 07/08/2024 Plantar wart (ICD-10 - B07.0) 07/08/2024 Tinea unguium (ICD-10 - B35.1) 06/04/2024 Left foot pain (ICD-10 - M79.672) 04/27/2024 Tinea unguium (ICD-10 - B35.1) 03/18/2024 Left foot pain (ICD-10 - M79.672) 02/16/2024 Tinea unguium (ICD-10 - B35.1) 12/01/2023 Tinea unguium (ICD-10 - B35.1) 01/12/2024 Left foot pain (ICD-10 - M79.672) 10/27/2023 Left foot pain (ICD-10 - M79.672) 09/03/2023 Tinea unguium (ICD-10 - B35.1) 07/30/2023 Pain in left foot (ICD-10 - M79.672) 09/03/2023 Pain in right toe(s) (ICD-10 - M79.674) 10/27/2023 Other hammer toe(s) (acquired), right foot (ICD-10 - M20.41) Patient Educated with: DIABETIC FOOT CARE INSTRUCTIONS.p df (DIABETIC FOOT CARE INSTRUCTIONS.p df) 12/01/2023 Pain in right toe(s) (ICD-10 - M79.674) 02/16/2024 Pain in right toe(s) (ICD-10 - M79.674) 04/27/2024 Pain in right toe(s) (ICD-10 - M79.674) 07/08/2024 Pain in right toe(s) (ICD-10 - M79.674) 07/08/2024 Pain in left toe(s) (ICD-10 - M79.675) 02/16/2024 Pain in left toe(s) (ICD-10 - M79.675) 04/27/2024 Pain in left toe(s) (ICD-10 - M79.675) 10/27/2023 Other hammer toe(s) (acquired), left foot (ICD-10 - M20.42) 09/03/2023 Pain in left toe(s) (ICD-10 - M79.675) 12/01/2023 Pain in left toe(s) (ICD-10 - M79.675) 09/03/2023 Pain in right foot (ICD-10 - M79.671) 12/01/2023 Pain in right foot (ICD-10 - M79.671) 04/27/2024 Pain in right foot (ICD-10 - M79.671) 07/08/2024 Pain in right foot (ICD-10 - M79.671) 02/16/2024 Pain in right foot (ICD-10 - M79.671) 02/16/2024 Pain in left foot (ICD-10 - M79.672) 07/08/2024 Pain in left foot (ICD-10 - M79.672) 04/27/2024 Pain in left foot (ICD-10 - M79.672) 12/01/2023 Pain in left foot (ICD-10 - M79.672) 09/03/2023 Pain in left foot (ICD-10 - M79.672) 02/16/2024 Other hammer toe(s) (acquired), right foot (ICD-10 - M20.41) Response to treatment,Impro vement 02/16/2024 Other hammer toe(s) (acquired), left foot (ICD-10 - M20.42) Response to treatment,Impro vement Plan Of Treatment Pending Test Test Name Order Date 10766-XPRGKYV NAIL, 6 OR MORE 08/21/2017 40341-LXSREHX NAIL, 6 OR MORE 10/27/2017 91641-ZEENLIA NAIL, 6 OR MORE 01/15/2018 89039-EBOXOED NAIL, 6 OR MORE 04/13/2018 93088-UYZFKMU NAIL, 6 OR MORE 07/06/2018 30887-OTPOSPT NAIL, 6 OR MORE 2018 94704-SSAFLJE NAIL, 6 OR MORE 12/31/2018 82255-WFGGQXM NAIL, 6 OR MORE 03/18/2019 53575-MJVATYN NAIL, 6 OR MORE 05/27/2019 41153-VQHVHIY NAIL, 6 OR MORE 08/16/2019 59717-MIIVZSC NAIL, 6 OR MORE 10/28/2019 34416-ITYOFEX NAIL, 6 OR MORE 01/17/2020 01771-RJOLLCI NAIL, 6 OR MORE 04/19/2020 26445-VRKRCMJ NAIL, 6 OR MORE 07/05/2020 60907-LDSEKIN NAIL, 6 OR MORE 09/21/2020 32392-OEBUEIN NAIL, 6 OR MORE 12/04/2020 93535-OMQODDI NAIL, 6 OR MORE 02/15/2021 91436-KMQVLYE NAIL, 6 OR MORE 04/25/2021 46238-YZAXIJF NAIL, 6 OR MORE 07/05/2021 21180-PPSEOLN NAIL, 6 OR MORE 09/20/2021 56865-SKTMRVQ NAIL, 6 OR MORE 01/09/2022 63899-SSHCYDN NAIL, 6 OR MORE 04/15/2022 63741-ZIXTGJT NAIL, 6 OR MORE 07/11/2022 34340-KVSVZWT NAIL, 6 OR MORE 10/03/2022 18342-NOFTSRZ NAIL, 6 OR MORE 01/09/2023 07027-XCBDAVE NAIL, 6 OR MORE 03/27/2023 00850-CVEQJDG NAIL, 6 OR MORE 06/23/2023 84296-LJMVLMF NAIL, 6 OR MORE 09/03/2023 68407-FCLUSCJ NAIL, 6 OR MORE 12/01/2023 08417-TGRTOQI NAIL, 6 OR MORE 02/16/2024 98580-MNFQXMK NAIL, 6 OR MORE 04/27/2024 79517-KQPDPAY NAIL, 6 OR MORE 07/08/2024 19829-Hryw Destruction, 1-14 07/08/2024 42541-Txwu Destruction, 1-14 04/27/2024 40507-Vpku Destruction, -14 02/16/2024 13941-Zhec Destruction, -14 01/12/2024 11182-Tgmc Destruction, -14 03/18/2024 03350-Lrep Destruction, 1-14 12/01/2023 78823-Kxaw Destruction, -14 07/30/2023 70666-Vgnd Destruction, -14 10/27/2023 45956-Jasg Destruction, -14 09/03/2023 63033-Rsle Destruction, -14 06/23/2023 47904-Ozhh Destruction, -14 06/04/2024 62835-Xurt Destruction, -14 03/27/2023 20098-Qyer Destruction, -14 02/20/2023 34900-Vwpd Destruction, -14 05/05/2023 89229-Fmjz Destruction, -14 01/09/2023 41314-Hcxl Destruction, -14 08/22/2022 22730-Qgaw Destruction, -14 11/18/2022 97849-Nkjx Destruction, -14 10/03/2022 50007-Mill Destruction, -14 07/11/2022 03144-Udxe Destruction, -14 04/15/2022 41761-Ocha Destruction, -14 05/30/2022 46596-Txgo Destruction, -14 02/21/2022 47675-Srgl Destruction, -14 09/20/2021 91527-Fufj Destruction, -14 10/29/2021 12748-Vzux Destruction, 08-1712/05/2021 70149-Gyyl Destruction, 08-1701/09/2022 49834-Enln Destruction, 08-1707/05/2021 59308-Kvxn Destruction, 08-1704/25/2021 12198-Lkrh Destruction, 08-1705/31/2021 68827-Jjwq Destruction, 08-1702/15/2021 20875-Sumr Destruction, 08-1703/21/2021 52253-Kats Destruction, 08-1712/04/2020 43692-Iwyc Destruction, 08-1701/11/2021 31352-Wxig Destruction, 08-1709/21/2020 28699-Sanq Destruction, 08-1710/30/2020 93035-Lqmn Destruction, 08-1707/05/2020 44719-Frvu Destruction, 08-1708/14/2020 96079-Wmtp Destruction, 08-1704/19/2020 77007-Nneo Destruction, 08-1706/05/2020 00651-Unjv Destruction, 08-1701/17/2020 63839-Oovm Destruction, 08-1703/09/2020 99420-Pglw Destruction, 08-1710/28/2019 21810-Dqgm Destruction, 08-1712/09/2019 01964-Zjef Destruction, 08-1708/16/2019 88411-Rgjy Destruction, 08-1709/22/2019 74389-Qwrl Destruction, 08-1705/27/2019 24328-Lbqi Destruction, 08-1706/24/2019 25523-Fwcd Destruction, 08-1707/14/2019 78837-Rlqp Destruction, 08-1703/18/2019 37060-Jslw Destruction, 08-1704/19/2019 63548-Qbtx Destruction, 08-1712/31/2018 35091-Myjl Destruction, 08-1702/15/2019 15785-Fwuh Destruction, 08-1709/28/2018 11766-Szkc Destruction, 08-1711/19/2018 42621-Emsz Destruction, 08-1708/17/2018 77672-Ksjo Destruction, 08-1705/25/2018 53081-Fivd Destruction, 08-1707/06/2018 07327-Pdvj Destruction, 1-14 04/13/2018 78003-Hmje Destruction, 1-14 10/27/2017 19326-Efmk Destruction, -14 08/21/2017 39215-Nriv Destruction, 1-14 01/15/2018 29074- Debride <25 sq cm 12/24/2017 30662- Debride <25 sq cm 12/31/2017 03970-QRZK SKIN LESIONS, 2 TO 4 07/11/20 75535-DWBH SKIN LESIONS, 2 TO 4 10/04/19 23 79757-BFVL SKIN LESIONS, 2 TO 4 01/10/20 55121-CHRR SKIN LESIONS, 2 TO 4 03/27/20 14950-ONPG SKIN LESIONS, 2 TO 4 06/23/20 38130-DFCX SKIN LESIONS, 2 TO 4 09/03/19 24 88200-FXML SKIN LESIONS, 2 TO 4 12/01/19 24 15051-VQXW SKIN LESIONS, 2 TO 4 02/16/20 24 13428-JIDW SKIN LESIONS, 2 TO 4 04/27/20 24 18676-HHGD SKIN LESIONS, 2 TO 4 07/08/20 24 65269 - TENOTOMY, OPEN, EXTENSOR 018 Next Appt Details Provider Name:Sandeep Steele Ina , 08/12/2024 08:30:00 AM, [address] [facility], [facility] [address], [place], [address], Insurance Providers Payer Name Payer Address Payer Phone Subscriber Number Group Number Insured Name Patient Relationship to Insured Coverage Start Date Coverage End Date Medicare [employer] [address] [place] [address] [id number] Otis Mullen Self - patient is the insured [address] [place] [address] SATH[place] Meyer [phone] [id number] Otis Mullen Self - patient is the insured Medical (General) History Medical History History ICD Code asthma Chicken pox Hypertension Measles Mumps Reflux Surgical History Surgery Date(Month/Year) whipple procedure 01/2004 colon 03/22/2015 cataract surgery 06/2018 biopsy prostate 11/2022 lasik 06/20/23 Hospitalization History Reason Date(Month/Year) [facility] - Infection 03/12/24 [facility]- Kidney Stones 03/04/24-03/07/24 [facility]- pneumonia, 3 day stay 11/2023 [facility]- kidney stone 03/2022 [facility] admitted for nine days 10/2021 [facility]- covid 07/17-08/03 Cellulitis on lt leg 09/16/2018-09/18/19 19 [facility] Dehydration 05/21/18 & 05/22/18 [facility] 01/07/18-01/10/18
[2024-07-16 13:19] LABS: Prothrombin Time Whole Bld POC 26.6 sec (11.1-13.5); ~PT, ~INR - Anti Coag Clinic 2.2 (0.9-1.1)
--- NOTE | 2024-07-16 13:22 | MHC.OFFVISCO ---
Intake Intake Visit Reasons: Anticoagulation Allergies nicotine Allergy (Intermediate, Verified 07/16/24 13:05) Rash fish derived [FISH] Allergy (Unknown, Verified 07/16/24 13:05) ANGIOEDEMA tamsulosin [Flomax] Adverse Reaction (Intermediate, Verified 07/16/24 13:05) nightmares Medication List - Last Reconciled 07/16/24 by Marie Shaver, RN albuterol sulfate mg inhalation Q6H PRN albuterol sulfate 90 mcg/actuation inhalation blood sugar diagnostic (FreeStyle Lite Strips) daily blood-glucose meter (FreeStyle [place] Lite kit) As directed [custom heat molded multidensity innersoles wear 3 pairs of custom heat molded multidensity innersoles wear] docusate sodium (Stool Softener) 100 mg PO DAILY [extra depth orthopedic shoes with 3 pairs of custom heat molded multidensity innersoles wear] fluticasone propionate 50 mcg/actuation 1 spray intranasal DAILY kwxgcamztex-amujwxemc-igkcnkrw 100-62.5-25 mcg (Trelegy Ellipta) 1 ea inhalation DAILY furosemide 40 mg PO QAM glimepiride 1 mg PO DAILY hydrocortisone 2.5% appl topical lancets (FreeStyle Lancets) test daily metformin 1,000 mg PO BID metoprolol succinate ER 50 mg PO DAILY omeprazole 40 mg PO DAILY polyethylene glycol 3350 (Miralax) 17 grams PO DAILY saw palmetto 450 mg PO BID solifenacin 10 mg PO DAILY triamcinolone acetonide 0.1% 1 appl topical BID-TID vitamins A,C,X-uwjo-gebocz 2,148 mcg-113 mg-45 mg-17.4mg (PreserVision AREDS) 1 tab PO BID warfarin 7.5 mg See Protocol PO DAILY MDD 1.5 tablets daily Nursing Note INR: 2.2 in therapeutic range of 2-3 Pt has UTI and started Cipro 07/13/24 (can raise INR) Medications and supplements reviewed No changes in diet Denies any signs and symptoms of bleeding or bruising or clotting. Bleeding, bruising, clotting discussed Nutritional guidance given Dose: keep same dose but decrease one day next week to 7.5mg (11.25mg) Usual dose: 7.5mg X 4 days and 11.25mg X 3 days F/U INR: 1 week Patient verbalizes understanding of instructions given Anti-Coag Initial Assessment Social Hx Patient Tobacco Use Status: Former Tobacco user Tobacco use type: Cigarette alcohol intake: current Alcohol intake frequency: holidays/special occasions only Cardiovascular Hx: HTN, CHF and Cardiomyopathy Lung Disease HX: Asthma, COPD and DVT/PE Endocrine Hx: Diabetes Blood Disorder Hx: Other GI Hx: Other Cancer HX: No Coding Level of Care Code Est Patient Level 1 Diagnoses Current use of anticoagulant therapy Z79.01 Results AMB INR Fingerstick AMB INR Fingerstick 2.2 Last Edit by Marie Shaver RN on 07/16/24 13:14 interface delay Assessment & Plan Assessment & Plan (1) Current use of anticoagulant therapy: Code(s): Z79.01 - termination clerk (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
== END 2024-07-16 13:25 | disposition home or self-care (01) ==
LOC: HO.ACS 13:02
PROVIDERS: PCP Internal Medicine; Visit Provider Internal Medicine
DX: Z79.01 Long term (current) use of anticoagulants (principal)

== ENCOUNTER → 2024-07-16 13:02 | Outpatient (BNVA) | payer MEDICARE, OTHER, SELFPAY | PROVIDERS: PCP Internal Medicine; Visit Provider Internal Medicine | DX: I26.99 Other pulmonary embolism without acute cor pulmonale (principal); Z79.01 Long term (current) use of anticoagulants; Z51.81 Encounter for therapeutic drug level monitoring | CPT/HCPCS: 85610; 99211 ==

== ENCOUNTER 2024-07-22 09:00 | Outpatient (AMB) | payer MEDICARE, OTHER, SELFPAY ==
[2024-07-22 09:11] LABS: Prothrombin Time Whole Bld POC 28.6 sec (11.1-13.5); ~PT, ~INR - Anti Coag Clinic 2.4 (0.9-1.1)
--- OUTSIDE RECORDS SUMMARY | 2024-07-22 09:14 | XMS_ITS ---
Author Organization [facility] Address [address] [place] [address] Care Team Providers Care Coat Operator Name Role Phone Gilles THOMPSON, Jonathan Primary Care Provider Sandeep Diallo Unavailable [phone] Allergies Allergen (clinical drug ingredient) Drug/Non Drug [...] Ordered Date Performed Result Body Sit e 87675-UPPQQUZ NAIL, 6 OR MORE 07/08/2024 N/A 47778-Almz Destruction, 1-14 07/08/2024 N/A 71232-OEOK SKIN LESIONS, 2 TO 4 07/08/2024 N/A Encounters Encounter Location Date Provider Diagnosis [facility] [place] [address] [place] [address] 07/08/2024 Sandeep Buckley Type 2 diabetes mellitus [...] Treatment Pending Test Test Name Order Date 69222-DPVZMED NAIL, 6 OR MORE 07/08/2024 95586-Oupj Destruction, 1-14 07/08/2024 62538-MUMO SKIN LESIONS, 2 TO 4 07/08/20 24 Next Appt Details Follow Up: prn, Reason: Provider Name:Sandeep V Ina , 08/12/2024 08:30:00 AM, [address], [place], [address], Procedure Notes * Category Sub-Category Detail Notes Wart Treatment Procedure Verruca, as desc ribed in exam, were debrided to pin-point bleeding margins with sterile 15 surgical blade, silver nitrate chemocautery applied, recomm. immune-boosting meds such as zinc, recomm. follow up with topical chemosurgical agents, Pt defers any other forms of tx - 77485 Debride Nail 6-10 Nail debridement Performance o f this nail treatment by a nonprofessional would put this patients foot and overall health at risk. Therefore, debridement to affected nail(s), as described in exam, was performed extensively to reduce/remove overall nail length, girth, thickness, subungual debris, and necrotic tissue, by manual and/or electrical means through the use of a nail nipper and/or dremel-type lens grinder rough, to a more viable healthy nail plate [...] to maintain effectiveness in symptomatic relief - 16388 Keratoma Treatment Parring or Cutting o f Benign Hyperkeratotic Lesion(s) (-56) 2-4 Lesions - The Benign hyperkeratotic lesions, ( 4) in total, locations as stated and described in exam, were pared, and/or cut utilizing a sterile 15 blade, tissue nippers, and/or power dremel instrumentation - 05250, Q8 Progress Notes * Otis MULLENDOB: [birth year] (73 yo M)Acc No.[id number]:07/08/2024 Progress Note Patient:Otis HOPE Provider:?Sandeep Buckley DPM :1950???Age:73 Y???Sex:Male Adolfo e:07/08/2024 Address:[address] [place], [place] [id number] Pcp:Jonathan Campoverde MD Subjective: * Chief Complaints: [...] 09/16/2018-09/18/2018[facility]- covid 07/17-08/03[facility] admitted for nine days 10/2021[facility]- kidney stone - pneumonia, 3 day stay - Kidney Stones 03/04/24-03/07/24[facility] - Infection 03/12/24 * Family History:?Mother: dece [...] mellitus with diabetic peripheral angiopathy without gangrene?Procedure: 18096-QLEK SKIN LESIONS, 2 TO 4 3.?Tinea unguium?Procedure: 03233-HRIDKRZ NAIL, 6 OR MORE * Procedures:?Debride Nail [...] use of a nail nipper and/or dremel-type lens grinder rough, to a more viable healthy nail plate [...] to maintain effectiveness in symptomatic relief - 67961.?Keratoma Treatment:?Parring or Cutting of Benign Hyperkeratotic Lesion(s)?(-56) 2-4 Lesions - The Benign hyperkeratotic lesions, ( 4) in total, locations as stated and described in exam, were pared, and/or cut utilizing a sterile 15 blade, tissue nippers, and/or power dremel instrumentation - 19997, Q8.?Wart Treatment:?Procedure?Verruca, as described in exam, were debrided to pin-point bleeding margins with sterile 15 surgical blade, silver nitrate chemocautery applied, recomm. immune-boosting meds such as zinc, recomm. follow up with topical chemosurgical agents, Pt defers any other forms of tx - 76898.? * Procedure Codes:?50292 DEBRI DE NAIL, 6 OR MORE, Modifiers: XS 28804 Wart Destruction, 1-14, Modifiers: XS 21744 TRIM SKIN LESIONS, 2 TO 4, Modifiers: XS , Q8 * Follow Up:?prn * Images: * Sign off status: Completed true * Provider:?Sandeep Buckley DPM Date:?2023 Generated for Shekhar mata/Adelaide/eTransmitting on:?07/22/2024 09:14 AM EST History and Physical Notes * HPI [...] plantar Forefoot, Midfoot, Heel, B/L Vascular DP PULSES (B): 0/4, LEFT, 1/4, RIGHT PT PULSES (B): 0/4, B/L CAPILLARY FILL TIME: delayed, all digits , B/L TEMPERTURE GRADIENT (C): decreased, cool to cool, proximal to distal, B/L TROPHIC CONDITION-TEXTURE/ELASTICITY/TURGOR/HAIR GROWTH (B): decreased, with sparse to absent hair gr owth, B/L EDEMA (C): 2/4, non-pitting, wi thout aching pain, B/L, Leg(s), Ankle(s), Feet CLAUDICATION (C): denies, B/L REST PAIN: denies, B/L PIGMENTATION: rubrous, B/L Nails NAILS are: Elongated, overg rown, dystrophic, lytic, greater than 3mm thick, discolored and friable with crumbly malodorous subungual debris, with pain on palpation , T1, T2, T3, T4, T6, T7, T8, T9
--- OUTSIDE RECORDS SUMMARY | 2024-07-22 09:14 | XMS_ITS ---
Author Organization [facility] Address [address] [place] [address] Care Team Providers Care Nutritional Services Host Name Role Phone Gilles THOMPSON, Jonathan Primary Care Provider Sandeep Diallo Unavailable [phone] Allergies Allergen (clinical drug ingredient) Drug/Non Drug [...] Ordered Date Performed Result Body Sit e 65837-OPUICFP NAIL, 6 OR MORE 04/27/2024 N/A 86348-Lccp Destruction, 1-14 04/27/2024 N/A 44992-GWDO SKIN LESIONS, 2 TO 4 04/27/2024 N/A Encounters Encounter Location Date Provider Diagnosis [facility] [address] [address] 04/27/2024 Sandeep Buckley Type 2 diabetes mellitus [...] Treatment Pending Test Test Name Order Date 38371-HOSKBWR NAIL, 6 OR MORE 04/27/2024 70560-Khta Destruction, 1-14 04/27/2024 42787-CPWB SKIN LESIONS, 2 TO 4 04/27/20 Next Appt Details Follow Up: prn, Reason: Provider Name:Sandeep Buckley , 08/12/2024 08:30:00 AM, [address], [address], [place], [address], Procedure Notes * Category Sub-Category Detail Notes Wart Treatment Procedure Verrucae were de brided to pin-point bleeding margins with sterile 15 surgical blade, silver nitrate chemocautery applied, recomm. immune-boosting meds such as zinc, recomm. follow up with topical chemosurgical agents, Pt defers any other forms of tx - 93090 Debride Nail 6-10 Nail debridement Performance o f this nail treatment by a nonprofessional would put this patients foot and overall health at risk. Therefore, nail debridement was performed extensively to reduce/remove overall nail length, girth, thickness, subungual debris, and necrotic tissue, by manual and/or electrical means through the use of a nail nipper and/or dremel-type billet grinder, to a more viable healthy nail plate or bed tissue 6-10. Silver nitrate used for any petechial bleeding as necessary. Definitive antifungal treatment options have been reviewed and discussed with the patient. The patient chooses, no pharmaceutical tx - 08121 Keratoma Treatment Parring or Cutting o f Benign Hyperkeratotic Lesion(s) (-56) 2-4 Lesions - The Benign hyperkeratotic lesions, as described above were pared, and/or cut utilizing a sterile 15 blade, tissue nippers, and/or dremel - 83884 , Q8 Progress Notes * Otis MUNOZDOB: [birth year] (73 yo M)Acc No.[id number]:04/27/2024 Progress Notes Patient:?Sonjapolo Otis Choi Provider:?Sandeep Buckley DPM :1950???Age:73 Y???Sex:Male Adolfo e:04/27/2024 Address: [facility], [id number] Pcp:Jonathan Campoverde MD Subjective: * Chief Complaints: [...] & 05/22/18Cellulitis on lt leg 09/16/2018-09/18/2018[facility]- [facility] 07/17-08[facility] [place]/2021[facility] [place] - pneumonia, 3 day stay - Kidney Stones 03/04/24-03/07/24[facility] [place] - Infection 03/12/24 * Family History:?Mother: dece [...] mellitus with diabetic peripheral angiopathy without gangrene?Procedure: 58629-EEGG SKIN LESIONS, 2 TO 4 3.?Tinea unguium?Procedure: 17598-FEDGYNU NAIL, 6 OR MORE * Procedures:?Debride Nail 6-10:?Nail debridement?Performance of this nail treatment by a nonprofessional would put this patients foot and overall health at risk. Therefore, nail debridement was performed extensively to reduce/remove overall nail length, girth, thickness, subungual debris, and necrotic tissue, by manual and/or electrical means through the use of a nail nipper and/or dremel-type billet grinder, to a more viable healthy nail plate or bed tissue 6-10. Silver nitrate used for any petechial bleeding as necessary. Definitive antifungal treatment options have been reviewed and discussed with the patient. The patient chooses, no pharmaceutical tx - 01949.?Keratoma Treatment:?Parring or Cutting of Benign Hyperkeratotic Lesion(s)?(-56) 2-4 Lesions - The Benign hyperkeratotic lesions, as described above were pared, and/or cut utilizing a sterile 15 blade, tissue nippers, and/or dremel - 87096 , Q8.?Wart Treatment:?Procedure?Verrucae were debrided to pin-point bleeding margins with sterile 15 surgical blade, silver nitrate chemocautery applied, recomm. immune-boosting meds such as zinc, recomm. follow up with topical chemosurgical agents, Pt defers any other forms of tx - 20665.? * Procedure Codes:?83477 DEBRI DE NAIL, 6 OR MORE, Modifiers: XS 67516 Wart Destruction, 1-14, Modifiers: XS 23175 TRIM SKIN LESIONS, 2 TO 4, Modifiers: XS , Q8 * Follow Up:?prn * Images: * Sign off status: Completed true * Provider:?Sandeep Buckley DPM Date:?2023 Generated for Shekhar mata/Adelaide/Jerrod on:?07/22/2024 09:14 AM EST History and Physical [...]
--- OUTSIDE RECORDS SUMMARY | 2024-07-22 09:14 | XMS_ITS | Patient Health Record ---
Author Organization [facility] Address [address] [place] [address] Care Team Providers Care Director Park Name Role Phone Gilles THOMPSON, Jonathan Primary Care Provider Sandeep Diallo Unavailable [phone] Allergies Allergen (clinical drug ingredient) Drug/Non Drug [...] Problem Acquired hammer toe of right foot (4621991280523 105) Other hammer toe(s) (acquired), right foot (M20.41) Active confirmed Response to treatment,I mprovement Problem Type 2 diabetes mellitus with peripheral angiopathy (371061744) Type 2 diabetes mellitus with diabetic peripheral angiopathy without gangrene (E11.51) Active confirmed Problem Acquired hammer toe of left foot (0739090664987 103) Other hammer toe(s) (acquired), left foot (M20.42) Active confirmed Response to treatment,I mprovement Problem Plantar wart (50661801) Plantar wart (B07.0) Active confirmed Chronic Vital Signs Height 5ft 10in in 07/08/2024 Weight 237 lbs 07/08/2024 BMI 34 kg/m2 07/08/2024 Procedures Procedure Date Ordered Date Performed Result Body Sit e 95546-Ripf Destruction, 1-14 07/30/2023 N/A 16431-ROFTNSU NAIL, 6 OR MORE 09/03/2023 N/A 77900-Mmka Destruction, 1-14 09/03/2023 N/A 61371-NDEB SKIN LESIONS, 2 TO 4 09/03/2023 N/A 00152-Kass Destruction, 1-14 10/27/2023 N/A 38692-RLZKQAV NAIL, 6 OR MORE 12/01/2023 N/A 40378-Gheb Destruction, 1-14 12/01/2023 N/A 29038-XURC SKIN LESIONS, 2 TO 4 12/01/2023 N/A 86096-Ukxy Destruction, 1-14 01/12/2024 N/A 02487-IEURHHC NAIL, 6 OR MORE 02/16/2024 N/A 48199-Qtdx Destruction, 1-14 02/16/2024 N/A 87679-NBAA SKIN LESIONS, 2 TO 4 02/16/2024 N/A 45995-Kbcw Destruction, 1-14 03/18/2024 N/A 05475-FTNKEWB NAIL, 6 OR MORE 04/27/2024 N/A 55058-Mrgh Destruction, 1-14 04/27/2024 N/A 35495-BGEQ SKIN LESIONS, 2 TO 4 04/27/2024 N/A 53418-Tbzi Destruction, 1-14 06/04/2024 N/A 12107-VIPZXQE NAIL, 6 OR MORE 07/08/2024 N/A 24144-Wgkt Destruction, 1-14 07/08/2024 N/A 38789-EUNA SKIN LESIONS, 2 TO 4 07/08/2024 N/A Encounters Encounter Location Date Provider Diagnosis [facility] [address] 07/30/2023 Sandeep uBckley Plantar wart B07.0 ; Pain in right foot M79.671 and Pain in left foot M79.[address] [facility] [address] 09/03/2023 Sandeep Ina Type 2 diabetes mellitus with diabetic peripheral angiopathy without gangrene E11.51 ; Plantar wart B07.0 ; Tinea unguium B35.1 ; Pain in right toe(s) M79.674 ; Pain in left toe(s) M79.675 ; Pain in right foot M79.671 and Pain in left foot M79.[address] [address] 10/27/2023 Sandeep Ina Right foot pain M79.671 ; Plantar wart B07.0 ; Left foot pain M79.672 ; Other hammer toe(s) (acquired), right foot M20.41 and Other hammer toe(s) (acquired), left foot M20.[address] [address] 12/01/2023 Sandeep Buckley Type 2 diabetes mellitus with diabetic peripheral angiopathy without gangrene E11.51 ; Plantar wart B07.0 ; Tinea unguium B35.1 ; Pain in right toe(s) M79.674 ; Pain in left toe(s) M79.675 ; Pain in right foot M79.671 and Pain in left foot M79.[address] [address] 01/12/2024 Sandeep Buckley Right foot pain M79.671 ; Plantar wart B07.0 and Left foot pain M79.[address] [address] 02/16/2024 Sandeep Buckley Type 2 diabetes mellitus with diabetic peripheral angiopathy without gangrene E11.51 ; Plantar wart B07.0 ; Tinea unguium B35.1 ; Pain in right toe(s) M79.674 ; Pain in left toe(s) M79.675 ; Pain in right foot M79.671 ; Pain in left foot M79.672 ; Other hammer toe(s) (acquired), right foot M20.41 and Other hammer toe(s) (acquired), left foot M20.[address] [place] [address] 03/18/2024 Sandeep Ina Right foot pain M79.671 ; Plantar wart B07.0 and Left foot pain M79.[address] [address] 04/27/2024 Sandeep Ina Type 2 diabetes mellitus with diabetic peripheral angiopathy without gangrene E11.51 ; Plantar wart B07.0 ; Tinea unguium B35.1 ; Pain in right toe(s) M79.674 ; Pain in left toe(s) M79.675 ; Pain in right foot M79.671 and Pain in left foot M79.[address] [address] 06/04/2024 Sandeep Ina Right foot pain M79.671 ; Plantar wart B07.0 and Left foot pain M79.[address] [address] 07/08/2024 Sandeep Buckley Type 2 diabetes mellitus [...] Treatment Pending Test Test Name Order Date 86795-IFPLHJG NAIL, 6 OR MORE 08/21/2017 40353-WTUYJOM NAIL, 6 OR MORE 10/27/2017 89664-JDCDVXT NAIL, 6 OR MORE 01/15/2018 04969-ZFDJPLH NAIL, 6 OR MORE 04/13/2018 26390-KJNYGNH NAIL, 6 OR MORE 07/06/2018 76420-LCYEOFH NAIL, 6 OR MORE 2018 17224-JVDQXMF NAIL, 6 OR MORE 12/31/2018 34605-IJVUJHX NAIL, 6 OR MORE 03/18/2019 81179-DIYBWSF NAIL, 6 OR MORE 05/27/2019 01182-BLAWSZF NAIL, 6 OR MORE 08/16/2019 82137-HTEQLOV NAIL, 6 OR MORE 10/28/2019 62270-ZWNRNMR NAIL, 6 OR MORE 01/17/2020 84945-CBTMEVQ NAIL, 6 OR MORE 04/19/2020 99455-CVCYXZZ NAIL, 6 OR MORE 07/05/2020 55097-VMVRFVR NAIL, 6 OR MORE 09/21/2020 91684-CVDJFSX NAIL, 6 OR MORE 12/04/2020 72705-LJYUVGT NAIL, 6 OR MORE 02/15/2021 16025-HQLGIML NAIL, 6 OR MORE 04/25/2021 08853-CPQTCCW NAIL, 6 OR MORE 07/05/2021 42467-QNKIKME NAIL, 6 OR MORE 09/20/2021 33423-AOJERPT NAIL, 6 OR MORE 01/09/2022 04013-MZITHGH NAIL, 6 OR MORE 04/15/2022 88559-JZTJKYI NAIL, 6 OR MORE 07/11/2022 04142-LKOOEFJ NAIL, 6 OR MORE 10/03/2022 63785-PBLCTAZ NAIL, 6 OR MORE 01/09/2023 30807-PHJSMOH NAIL, 6 OR MORE 03/27/2023 15430-DZJTGII NAIL, 6 OR MORE 06/23/2023 45872-EFBIZCA NAIL, 6 OR MORE 09/03/2023 32721-DIUOOWU NAIL, 6 OR MORE 12/01/2023 72681-WZQFNVA NAIL, 6 OR MORE 02/16/2024 73696-QEDCWTS NAIL, 6 OR MORE 04/27/2024 14270-OTJSJYK NAIL, 6 OR MORE 07/08/2024 74099-Ffsj Destruction, 1-14 07/08/2024 77089-Obgr Destruction, 1-14 04/27/2024 62241-Uqqg Destruction, -14 02/16/2024 65451-Qftr Destruction, -14 01/12/2024 25742-Vylj Destruction, -14 03/18/2024 31424-Saef Destruction, 1-14 12/01/2023 11888-Hkix Destruction, -14 07/30/2023 14507-Ihyb Destruction, -14 10/27/2023 57753-Pvti Destruction, -14 09/03/2023 53903-Bkgb Destruction, -14 06/23/2023 21257-Qksl Destruction, -14 06/04/2024 99954-Qeeg Destruction, -14 03/27/2023 14652-Affy Destruction, -14 02/20/2023 03665-Txcc Destruction, -14 05/05/2023 73608-Cixg Destruction, -14 01/09/2023 99432-Kxqm Destruction, -14 08/22/2022 06744-Ivio Destruction, -14 11/18/2022 16142-Jxfx Destruction, -14 10/03/2022 36172-Irew Destruction, -14 07/11/2022 92694-Lumd Destruction, -14 04/15/2022 07813-Urvw Destruction, -14 05/30/2022 86766-Coox Destruction, -14 02/21/2022 00977-Ofem Destruction, -14 09/20/2021 50166-Vqao Destruction, -14 10/29/2021 85311-Jfyd Destruction, 08-1712/05/2021 94196-Rjii Destruction, 08-1701/09/2022 43805-Utfi Destruction, 08-1707/05/2021 71352-Rqdc Destruction, 08-1704/25/2021 13972-Dmpu Destruction, 08-1705/31/2021 28360-Tvbk Destruction, 08-1702/15/2021 02301-Anxq Destruction, 08-1703/21/2021 20925-Ojmf Destruction, 08-1712/04/2020 03216-Hria Destruction, 08-1701/11/2021 13707-Pvne Destruction, 08-1709/21/2020 83839-Mihq Destruction, 08-1710/30/2020 59660-Lasy Destruction, 08-1707/05/2020 03166-Xtrw Destruction, 08-1708/14/2020 36643-Zplq Destruction, 08-1704/19/2020 27738-Jjtw Destruction, 08-1706/05/2020 55744-Rbue Destruction, 08-1701/17/2020 59327-Wsdf Destruction, 08-1703/09/2020 78684-Pgng Destruction, 08-1710/28/2019 48559-Jqsg Destruction, 08-1712/09/2019 53872-Yihb Destruction, 08-1708/16/2019 93051-Lwva Destruction, 08-1709/22/2019 01189-Ywjy Destruction, 08-1705/27/2019 85293-Ccci Destruction, 08-1706/24/2019 92480-Hgsq Destruction, 08-1707/14/2019 61633-Irdk Destruction, 08-1703/18/2019 06952-Ldlz Destruction, 08-1704/19/2019 74022-Ofea Destruction, 08-1712/31/2018 11928-Fjbf Destruction, 08-1702/15/2019 48332-Khja Destruction, 08-1709/28/2018 48324-Wqxn Destruction, 08-1711/19/2018 55639-Hjqj Destruction, 08-1708/17/2018 71688-Ppjg Destruction, 08-1705/25/2018 54706-Pgvo Destruction, 08-1707/06/2018 81670-Hjfl Destruction, 1-14 04/13/2018 51320-Ypda Destruction, 1-14 10/27/2017 41486-Lqby Destruction, -14 08/21/2017 00591-Lzwk Destruction, 1-14 01/15/2018 87347- Debride <25 sq cm 12/24/2017 93736- Debride <25 sq cm 12/31/2017 28751-CREE SKIN LESIONS, 2 TO 4 07/11/20 53705-QDLS SKIN LESIONS, 2 TO 4 10/04/19 23 13293-VBRG SKIN LESIONS, 2 TO 4 01/10/20 12880-VSGL SKIN LESIONS, 2 TO 4 03/27/20 19526-LFDC SKIN LESIONS, 2 TO 4 06/23/20 26231-KLCF SKIN LESIONS, 2 TO 4 09/03/19 24 04564-WDJL SKIN LESIONS, 2 TO 4 12/01/19 24 13327-RVLO SKIN LESIONS, 2 TO 4 02/16/20 24 72160-TJMN SKIN LESIONS, 2 TO 4 04/27/20 24 05785-QVXZ SKIN LESIONS, 2 TO 4 07/08/20 24 88798 - TENOTOMY, OPEN, EXTENSOR 018 Next Appt Details Provider Name:Sandeep Steele Ina , 08/12/2024 08:30:00 AM, [address] [facility], [facility] [address], [place], [address], Insurance Providers Payer Name Payer Address Payer Phone Subscriber Number Group Number Insured Name Patient Relationship to Insured Coverage Start Date Coverage End Date Medicare [employer] [address] [place] [address] [id number] Otis Mullen Self - patient is the insured [address] SATHISH Meyer [phone] [id number] Otis Mullen Self - patient is the insured Medical (General) History Medical History History ICD Code asthma Chicken pox Hypertension Measles Mumps Reflux Surgical History Surgery Date(Month/Year) whipple procedure 01/2004 colon 03/22/2015 cataract surgery 06/2018 biopsy prostate 11/2022 lasik 06/20/23 Hospitalization History Reason Date(Month/Year) [facility] [place] - Infection 03/12/24 [facility]- Kidney Stones 03/04/24-03/07/24 [facility]- pneumonia, 3 day stay 11/2023 [facility] [place]- kidney stone 03/2022 [facility] [place] admitted for nine days 10/2021 [facility]- covid 07/17-08/03 Cellulitis on lt leg 09/16/2018-09/18/19 19 [facility] Dehydration 05/21/18 & 05/22/18 [facility] 01/07/18-01/10/18
--- OUTSIDE RECORDS SUMMARY | 2024-07-22 09:14 | XMS_ITS ---
Author Organization [facility] Address [address] [place] [address] Care Team Providers Care Inspector Filter Tip Name Role Phone Gilles THOMPSON, Jonathan Primary Care Provider Sandeep Diallo Unavailable [phone] Allergies Allergen (clinical drug ingredient) Drug/Non Drug [...] Ordered Date Performed Result Body Sit e 32873-Yzwf Destruction, 1-14 06/04/2024 N/A Encounters Encounter Location Date Provider Diagnosis [facility] [address] [address] 06/04/2024 Sandeep Buckley Right foot pain M79.671 ; Plantar wart B07.0 and Left foot pain M79.672 Assessments Encounter Date Diagnosis (ICD Code) Assessment Notes Treatment Notes Treatment Clinical Notes Section Notes 06/04/2024 Right foot pain (ICD-10 - M79.671) 06/04/2024 Plantar wart (ICD-10 - B07.0) 06/04/2024 Left foot pain (ICD-10 - M79.672) Plan Of Treatment Pending Test Test Name Order Date 52498-Dpwt Destruction, 1-06/04/2024 Next Appt Details Follow Up: prn, Reason: Provider Name:Sandeep Buckley , 08/12/2024 08:30:00 AM, [address], [place], [address], Procedure Notes * Category Sub-Category Detail Notes Wart Treatment Procedure Verruca were phan rided to pin-point bleeding margins with sterile 15 surgical blade, silver nitrate chemocautery applied, recomm. immune-boosting meds such as zinc, recomm. follow up with topical chemosurgical agents, Pt defers any other forms of tx - 20423 , DIABETES: Any more invasive procedure to wart deferred due to diabetes risk Progress Notes * Otis MUNOZDOB: [birth year] (73 yo M)Acc No.[id number]:06/04/2024 Progress Notes Patient:?Otis Munoz Provider:?Sandeep Buckley DPM :1950???Age:73 Y???Sex:Male Adolfo e:06/04/2024 Address:[address] [place], [place] [address] Pcp:Jonathan Campoverde MD Subjective: * Chief Complaints: [...] 09/16/2018-09/18/2018[facility]- covid 07/17-08/03[facility] admitted for nine days 10/2021[facility] [place] kidney stone - pneumonia, 3 day stay - Kidney Stones 03/04/24-03/07/[place] [place] * Family History:?Mother: dece [...] defers any other forms of tx - 89174 , DIABETES: Any more invasive procedure to wart deferred due to diabetes risk.? * Procedure Codes:?30966 Wart Destruction, 1-14 * Follow Up:?prn * [...]
--- NOTE | 2024-07-22 09:19 | MHC.OFFVISCO ---
Intake Intake Visit Reasons: Anticoagulation Allergies nicotine Allergy (Intermediate, Verified 07/22/24 09:01) Rash fish derived [FISH] Allergy (Unknown, Verified 07/22/24 09:01) ANGIOEDEMA tamsulosin [Flomax] Adverse Reaction (Intermediate, Verified 07/22/24 09:01) nightmares Medication List - Last Reconciled 07/22/24 by Marie Pollock RN albuterol sulfate mg inhalation Q6H PRN albuterol sulfate 90 mcg/actuation inhalation blood sugar diagnostic (FreeStyle Lite Strips) daily blood-glucose meter (FreeStyle Dawn Lite kit) As directed ciprofloxacin HCl (Cipro) 500 mg PO BID [custom heat molded multidensity innersoles wear 3 pairs of custom heat molded multidensity innersoles wear] docusate sodium (Stool Softener) 100 mg PO DAILY [extra depth orthopedic shoes with 3 pairs of custom heat molded multidensity innersoles wear] fluticasone propionate 50 mcg/actuation 1 spray intranasal DAILY pyqpnuajsbe-jtummzxmb-gbfyfefk 100-62.5-25 mcg (Trelegy Ellipta) 1 ea inhalation DAILY furosemide 40 mg PO QAM glimepiride 1 mg PO DAILY hydrocortisone 2.5% appl topical lancets (FreeStyle Lancets) test daily metformin 1,000 mg PO BID metoprolol succinate ER 50 mg PO DAILY omeprazole 40 mg PO DAILY polyethylene glycol 3350 (Miralax) 17 grams PO DAILY saw palmetto 450 mg PO BID solifenacin 10 mg PO DAILY triamcinolone acetonide 0.1% 1 appl topical BID-TID vitamins A,C,W-ohkd-dytrzc 2,148 mcg-113 mg-45 mg-17.4mg (PreserVision AREDS) 1 tab PO BID warfarin 7.5 mg See Protocol PO DAILY MDD 1.5 tablets daily Nursing Note Amb to [facility] feeling well, sts he is going to be on Cipro for another week (raises INR delayed response) Medications and supplements reviewed No other changes in health, diet, medications, or supplements, Denies any signs and symptoms of bleeding, bruising, or clotting. Bleeding, bruising, clotting discussed INR 2.4 in therapeutic range (warfarin dosing decreased last week) Dose: take 7.5mg today, usual 11.25mg tomorrow then 7.5mg Friday through Friday, (7.5mg on friday vs usual 11.25mg) usual 11.25mg Friday, 7.5mg and recheck on Friday instructed to increase greens over the weekend and to be aware of the reds over the Holidays that can raise (etoh, cranberry sauce, squash and pumpkin pie) F/U INR: 1 week Patient verbalizes understanding of instructions given Anti-Coag Initial Assessment Social Hx Patient Tobacco Use Status: Former Tobacco user Tobacco use type: Cigarette alcohol intake: current Alcohol intake frequency: holidays/special occasions only Cardiovascular Hx: HTN, CHF and Cardiomyopathy Lung Disease HX: Asthma, COPD and DVT/PE Endocrine Hx: Diabetes Blood Disorder Hx: Other GI Hx: Other Cancer HX: No Coding Level of Care Code Est Patient Level 1 Diagnoses Current use of anticoagulant therapy Z79.01 Time Spent (min) 15 Assessment & Plan Assessment & Plan (1) Current use of anticoagulant therapy: Code(s): Z79.01 - rodent exterminator (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
== END 2024-07-22 09:30 | disposition home or self-care (01) ==
LOC: HO.ACS 09:00
PROVIDERS: PCP Internal Medicine; Visit Provider Internal Medicine
DX: Z79.01 Long term (current) use of anticoagulants (principal)

== ENCOUNTER → 2024-07-22 09:00 | Outpatient (BNVA) | payer MEDICARE, OTHER, SELFPAY | PROVIDERS: PCP Internal Medicine; Visit Provider Internal Medicine | DX: I26.99 Other pulmonary embolism without acute cor pulmonale (principal); Z79.01 Long term (current) use of anticoagulants; Z51.81 Encounter for therapeutic drug level monitoring | CPT/HCPCS: 85610; 99211 ==

== ENCOUNTER 2024-07-29 07:53 | Outpatient (REF) | payer MEDICARE, OTHER, SELFPAY ==
--- OUTSIDE RECORDS SUMMARY | 2024-07-29 07:55 | XMS_ITS ---
Author Organization [facility] Address [address] [place] [address] Care Team Providers Care Cloth Presser Name Role Phone Gilles THOMPSON, Jonathan Primary Care Provider Sandeep Diallo Unavailable [phone] Allergies Allergen (clinical drug ingredient) Drug/Non Drug [...] Ordered Date Performed Result Body Sit e 19521-MSRUORN NAIL, 6 OR MORE 04/27/2024 N/A 22171-Tfsy Destruction, 1-14 04/27/2024 N/A 09796-TLQM SKIN LESIONS, 2 TO 4 04/27/2024 N/A Encounters Encounter Location Date Provider Diagnosis [facility] [address] [address] 04/27/2024 Sandeep Buckley Type 2 diabetes mellitus [...] Treatment Pending Test Test Name Order Date 07587-YTALRUJ NAIL, 6 OR MORE 04/27/2024 45728-Htqs Destruction, 1-14 04/27/2024 60377-HIUX SKIN LESIONS, 2 TO 4 04/27/20 Next Appt Details Follow Up: prn, Reason: Provider Name:Sandeep Buckley , 08/12/2024 08:30:00 AM, [address], [address], [place], [address], Procedure Notes * Category Sub-Category Detail Notes Wart Treatment Procedure Verrucae were de brided to pin-point bleeding margins with sterile 15 surgical blade, silver nitrate chemocautery applied, recomm. immune-boosting meds such as zinc, recomm. follow up with topical chemosurgical agents, Pt defers any other forms of tx - 99472 Debride Nail 6-10 Nail debridement Performance o f this nail treatment by a nonprofessional would put this patients foot and overall health at risk. Therefore, nail debridement was performed extensively to reduce/remove overall nail length, girth, thickness, subungual debris, and necrotic tissue, by manual and/or electrical means through the use of a nail nipper and/or dremel-type head grinder, to a more viable healthy nail plate or bed tissue 6-10. Silver nitrate used for any petechial bleeding as necessary. Definitive antifungal treatment options have been reviewed and discussed with the patient. The patient chooses, no pharmaceutical tx - 99896 Keratoma Treatment Parring or Cutting o f Benign Hyperkeratotic Lesion(s) (-56) 2-4 Lesions - The Benign hyperkeratotic lesions, as described above were pared, and/or cut utilizing a sterile 15 blade, tissue nippers, and/or dremel - 51912 , Q8 Progress Notes * Otis MUNOZDOB: [birth year] (73 yo M)Acc No.[id number]:04/27/2024 Progress Notes Patient:?Sonjapolo Otis Choi Provider:?Sandeep Buckley DPM :1950???Age:73 Y???Sex:Male Adolfo e:04/27/2024 Address: [address] [facility], [id number] Pcp:Jonathan Campoverde MD Subjective: * Chief Complaints: [...] & 05/22/18Cellulitis on lt leg 09/16/2018-09/18/2018[facility]- covid 07/17-08/03[facility] [place] [facility] [place] [place] - [place], 3 day stay - Kidney Stones 03/04/24-03/07/24[facility] - Infection 03/12/24 * Family History:?Mother: dece [...] mellitus with diabetic peripheral angiopathy without gangrene?Procedure: 79369-QPWJ SKIN LESIONS, 2 TO 4 3.?Tinea unguium?Procedure: 25121-UYHOHQN NAIL, 6 OR MORE * Procedures:?Debride Nail 6-10:?Nail debridement?Performance of this nail treatment by a nonprofessional would put this patients foot and overall health at risk. Therefore, nail debridement was performed extensively to reduce/remove overall nail length, girth, thickness, subungual debris, and necrotic tissue, by manual and/or electrical means through the use of a nail nipper and/or dremel-type head grinder, to a more viable healthy nail plate or bed tissue 6-10. Silver nitrate used for any petechial bleeding as necessary. Definitive antifungal treatment options have been reviewed and discussed with the patient. The patient chooses, no pharmaceutical tx - 85597.?Keratoma Treatment:?Parring or Cutting of Benign Hyperkeratotic Lesion(s)?(-56) 2-4 Lesions - The Benign hyperkeratotic lesions, as described above were pared, and/or cut utilizing a sterile 15 blade, tissue nippers, and/or dremel - 50630 , Q8.?Wart Treatment:?Procedure?Verrucae were debrided to pin-point bleeding margins with sterile 15 surgical blade, silver nitrate chemocautery applied, recomm. immune-boosting meds such as zinc, recomm. follow up with topical chemosurgical agents, Pt defers any other forms of tx - 71519.? * Procedure Codes:?19136 DEBRI DE NAIL, 6 OR MORE, Modifiers: XS 61849 Wart Destruction, 1-14, Modifiers: XS 15321 TRIM SKIN LESIONS, 2 TO 4, Modifiers: XS , Q8 * Follow Up:?prn * Images: * Sign off status: Completed true * Provider:?Sandeep Buckley DPM Date:?2023 Generated for Shekhar mata/Adelaide/Jerrod on:?07/29/2024 07:55 AM EST History and Physical Notes * [...]
--- OUTSIDE RECORDS SUMMARY | 2024-07-29 07:55 | XMS_ITS ---
Author Organization [facility] Address [address] [place] [address] Care Team Providers Care World Travel Counselor Name Role Phone Gilles THOMPSON, Jonathan Primary Care Provider Sandeep Diallo Unavailable [phone] Allergies Allergen (clinical drug ingredient) Drug/Non Drug [...] Ordered Date Performed Result Body Sit e 77626-Ofbw Destruction, 1-14 06/04/2024 N/A Encounters Encounter Location Date Provider Diagnosis [facility] [address] [address] 06/04/2024 Sandeep Buckley Right foot pain M79.671 ; Plantar wart B07.0 and Left foot pain M79.672 Assessments Encounter Date Diagnosis (ICD Code) Assessment Notes Treatment Notes Treatment Clinical Notes Section Notes 06/04/2024 Right foot pain (ICD-10 - M79.671) 06/04/2024 Plantar wart (ICD-10 - B07.0) 06/04/2024 Left foot pain (ICD-10 - M79.672) Plan Of Treatment Pending Test Test Name Order Date 61535-Lhah Destruction, 1-06/04/2024 Next Appt Details Follow Up: prn, Reason: Provider Name:Sandeep Buckley , 08/12/2024 08:30:00 AM, [address], [place], [address], Procedure Notes * Category Sub-Category Detail Notes Wart Treatment Procedure Verruca were phan rided to pin-point bleeding margins with sterile 15 surgical blade, silver nitrate chemocautery applied, recomm. immune-boosting meds such as zinc, recomm. follow up with topical chemosurgical agents, Pt defers any other forms of tx - 37153 , DIABETES: Any more invasive procedure to wart deferred due to diabetes risk Progress Notes * Otis MUNOZDOB: [birth year] (73 yo M)Acc No.[id number]:06/04/2024 Progress Notes Patient:?Otis Munoz Provider:?Sandeep Buckley DPM :1950???Age:73 Y???Sex:Male Adolfo e:06/04/2024 Address:[address] [place], [place] [id number] Pcp:Jonathan Campoverde MD Subjective: * Chief Complaints: [...] 09/16/2018-09/18/2018[facility]- covid 07/17-08/03[facility] for nine days 10[place]20[place] [place] - pneumonia, 3 day stay - Kidney Stones 03/04/24-03/07/24[facility] [place]12[place] * Family History:?Mother: dece [...] defers any other forms of tx - 00532 , DIABETES: Any more invasive procedure to wart deferred due to diabetes risk.? * Procedure Codes:?96785 Wart Destruction, 1-14 * Follow Up:?prn * [...]
--- OUTSIDE RECORDS SUMMARY | 2024-07-29 07:55 | XMS_ITS ---
Author Organization [facility] Address [address] [place] [address] Care Team Providers Care As400 Developer Name Role Phone Gilles THOMPSON, Jonathan Primary Care Provider Sandeep Diallo Unavailable [phone] Allergies Allergen (clinical drug ingredient) Drug/Non Drug [...] Ordered Date Performed Result Body Sit e 97521-VEZNSFY NAIL, 6 OR MORE 07/08/2024 N/A 96915-Trcd Destruction, 1-14 07/08/2024 N/A 80597-FKQV SKIN LESIONS, 2 TO 4 07/08/2024 N/A Encounters Encounter Location Date Provider Diagnosis [facility] [place] [address] [place] [id number] 07/08/2024 Sandeep Buckley Type 2 diabetes mellitus [...] Treatment Pending Test Test Name Order Date 27824-SDPLISY NAIL, 6 OR MORE 07/08/2024 63171-Wxsz Destruction, 1-14 07/08/2024 07436-WCWQ SKIN LESIONS, 2 TO 4 07/08/20 24 Next Appt Details Follow Up: prn, Reason: Provider Name:Sandeep V Ina , 08/12/2024 08:30:00 AM, [address], [place], [address], Procedure Notes * Category Sub-Category Detail Notes Wart Treatment Procedure Verruca, as desc ribed in exam, were debrided to pin-point bleeding margins with sterile 15 surgical blade, silver nitrate chemocautery applied, recomm. immune-boosting meds such as zinc, recomm. follow up with topical chemosurgical agents, Pt defers any other forms of tx - 97792 Debride Nail 6-10 Nail debridement Performance o f this nail treatment by a nonprofessional would put this patients foot and overall health at risk. Therefore, debridement to affected nail(s), as described in exam, was performed extensively to reduce/remove overall nail length, girth, thickness, subungual debris, and necrotic tissue, by manual and/or electrical means through the use of a nail nipper and/or dremel-type color grinder, to a more viable healthy nail [...] to maintain effectiveness in symptomatic relief - 95818 Keratoma Treatment Parring or Cutting o f Benign Hyperkeratotic Lesion(s) (-56) 2-4 Lesions - The Benign hyperkeratotic lesions, ( 4) in total, locations as stated and described in exam, were pared, and/or cut utilizing a sterile 15 blade, tissue nippers, and/or power dremel instrumentation - 45282, Q8 Progress Notes * Otis MULLENDOB: [birth year] (73 yo M)Acc No.[id number]:07/08/2024 Progress Note Patient:Otis HOPE Provider:?Sandeep Buckley DPM :1950???Age:73 Y???Sex:Male Adolfo e:07/08/2024 Address:[address] [place], [place] [id number] Pcp:Jonathan Campoverde MD Subjective: * Chief Complaints: [...] 09/16/2018-09/18/2018[facility]- cov[facility] 07/17-08/03[facility] admitted for nine days 10/2021[facility] [place]- kidney stone - pneumonia, 3 day stay - Kidney Stones 03/04/24-03/07/24[facility] [place] 03/12/24 * [...] mellitus with diabetic peripheral angiopathy without gangrene?Procedure: 40401-SNRC SKIN LESIONS, 2 TO 4 3.?Tinea unguium?Procedure: 77318-WRONBIL NAIL, 6 OR MORE * Procedures:?Debride Nail [...] use of a nail nipper and/or dremel-type color grinder, to a more viable healthy nail [...] to maintain effectiveness in symptomatic relief - 06245.?Keratoma Treatment:?Parring or Cutting of Benign Hyperkeratotic Lesion(s)?(-56) 2-4 Lesions - The Benign hyperkeratotic lesions, ( 4) in total, locations as stated and described in exam, were pared, and/or cut utilizing a sterile 15 blade, tissue nippers, and/or power dremel instrumentation - 60554, Q8.?Wart Treatment:?Procedure?Verruca, as described in exam, were debrided to pin-point bleeding margins with sterile 15 surgical blade, silver nitrate chemocautery applied, recomm. immune-boosting meds such as zinc, recomm. follow up with topical chemosurgical agents, Pt defers any other forms of tx - 48530.? * Procedure Codes:?69573 DEBRI DE NAIL, 6 OR MORE, Modifiers: XS 74715 Wart Destruction, 1-14, Modifiers: XS 27105 TRIM SKIN LESIONS, 2 TO 4, Modifiers: XS , Q8 * Follow Up:?prn * Images: * Sign off status: Completed true * Provider:?Sandeep Buckley DPM Date:?2023 Generated for Shekhar mata/Adelaide/eTransmitting on:?07/29/2024 07:55 AM EST History and Physical [...]
--- OUTSIDE RECORDS SUMMARY | 2024-07-29 07:55 | XMS_ITS | Continuity of Care Document ---
Author Organization [facility] Address [address] [place] [address]- Care Team Providers Care Training Generalist Name Role Phone Gilles THOMPSON, Jonathan Neumann Primary Care Physician Encounter 07/16/24 - 07/23/24 [facility] [address], [address] [place] [address]- Attending Physician: Kori Art Admitting Physician: Kori Art Referring Physician: Kori Art Encounter Type: OutPatient One Time Allergies, Adverse Reactions, Alerts Substance Criticality Severity Reaction Reaction Severity Status Flomax insomnia Active Nicotine Patch rash,itching Ac tive Magnevist Low criticality Mild patient felt sick/weak after injection Resolved Fish SOB, swelling Active Immunizations Given and Recorded Vaccine Date Status Refusal Reason RSV vaccine preF3, recombinant 10/27/23 Recorded pneumococcal 20-valent conjugate vaccine 08/06/22 Recorded [id number] 12y+ bivalent booster vax 08/06/22 Recorded SARS-CoV-2 mRNA (ilmyukt-ddry-khopz) vax 11/29/21 Recorded SARS-CoV-2 (COVID-19) mRNA BNT-162b2 [...] Maintenance, 06/22/24 4:21:00 PM EST, [facility], 179, cm, 06/10/24 8:17:00 EST, Height, 111, [...] Refills, Maintenance, 06/01/24 9:42:00 AM EDT, Capsule, [facility]/pharmacy #[id number], Partial fill upon patient [...] 0 Refills, Maintenance, 10/22/21 10:29:00 AM EDT, [facility], Partial fill upon patient request if [...] Refills, Maintenance, 10/23/21 3:23:00 PM EDT, Tablet, [facility]/pharmacy #[id number], Partial fill upon patient [...] Maintenance, 05/10/20 12:15:00 PM EDT, EC Capsule, [facility]/pharmacy #[id number], 180, cm, 03/25/20 12:53:00 [...] Refills, Soft Stop, 06/01/24 9:47:00 AM EDT, [facility]/pharmacy #[id number], Partial fill upon patient [...] 6 Refills, Maintenance, 01/13/24 4:40:00 PM EDT, [facility], 180, cm, 12/11/23 10:39:00 EDT, Height, 109.5, kg, 11/17/23 2:39:00 EDT, Dry Weight Start Date: 01/13/24 Status: Ordered Quantity: 60.0 Unit: Unknown Repeat number: 1 valsartan 40 mg oral tablet 1, tablet, By Mouth, 2 times a day, # 180 tablet, Refills 1, Maintenance, 06/14/24 7:26:00 AM EST, Route to Pharmacy Electronically, [id number], 179, cm, 06/10/24 8:17:00 EST, Height, 111, [...] Refills, Maintenance, 10/22/21 10:11:00 AM EDT, Tablet, [facility], Partial fill upon patient [...] diabetes mellitus with peripheral angiopathy Confirmed Active Results Radiology Reports * Exam Date Time Procedure Performing Provider Status 07/16/24 12:51 PM US Pelvic Doppler Comp Do william Uriostegui; Gloria (Verified) Notes: (US Pelvic Doppler Comp) Reason For Exam: Epididymo-Orchitis RESULT: US Pelvic Doppler Comp US Scrotum and Contents, US Pelvic Doppler Comp Reason: Epididymo-Orchitis COMPARISON: 04/12/2024 TECHNIQUE: High-resolution sonography with grayscale, color and spectral Doppler analysis. FINDINGS: Please note that the imaging is suboptimal due to lack of cine images and lack of venous color flow documentation in the testicles. No radiologist was present at the time of the study acquisition. RIGHT: Right testicle size: 4.1 x 1.9 x 2.4 cm (10.5 cc). Previously was 28.2 cc Mild diffuse heterogenous echotexture of the right testes. Previously noted focal hypoechoic lesionin the right testes is not visualized on the given images.. Normal arterial waveforms. No definite venous waveforms documented. Slightly thickened right epididymal head, measuring approximately 1.8 x 0.9 cm. Several epididymal head cysts noted, the largest one measuring up to 1.1 cm. There is an apparent focal mixed echogenicity lesion noted in the inferior right epididymis as seen on images 4, 5 and 16, with no significanthyperemia, which is probably related to resolving epididymitis. No significant hydrocele or varicocele. LEFT: Left testicle size: 3.1 x 1.1 x 2.4 cm (4.6 cc). Previously was 6.4 cc Slight diffuse heterogenous echotexture of the left testes with no focal lesion. Normal arterial waveforms. No definite venous waveforms documented.. Few epididymal head cysts noted measuring up to 7 mm. The left epididymal head measures up to 6 mm. No significant hydrocele or varicocele. Mild diffuse thickening of the scrotal wall again noted. IMPRESSION: Limited study, as described above Improvement in the previously noted right-sided epididymo-l orchitis. Right testes is smaller in size, compared to the prior study. Previously noted focal hypoechoic region in the right testes is notclearly seen on the given images. However please note that evaluation is limited due to lack of cine images. Focal prominent area of mixed echogenicity in the region of the inferior right epididymis with no definite vascularity, may be related to resolving epididymitis. Please note if patient has persistent symptoms may consider short interval follow-up ultrasound at [facility] with a radiologist present.. WSN: [id number] Ordering Physician: Kori Decker Dictated By: Sharla Vargas MD Dictated Date/Time: 07/16/24 2:00 pm Reviewed By: Sharla Vargas MD Signed By: Sharla Vargas MD Signed Date/Time: 07/16/24 2:00 pm Transcribed By: ALONZO Transcribed Date/Time: 07/16/24 1:49 pm * Exam Date Time Procedure Performing Provider Status 07/16/24 12:49 PM US Scrotum and Contents Mar Uriostegui; Auth (Verified) Notes: (US Scrotum and Contents) Reason For Exam: Epididymo-Orchitis RESULT: US Scrotum and Contents US Scrotum and Contents, US Pelvic Doppler Comp Reason: Epididymo-Orchitis COMPARISON: 04/12/2024 TECHNIQUE: High-resolution sonography with grayscale, color and spectral Doppler analysis. FINDINGS: Please note that the imaging is suboptimal due to lack of cine images and lack of venous color flow documentation in the testicles. No radiologist was present at the time of the study acquisition. RIGHT: Right testicle size: 4.1 x 1.9 x 2.4 cm (10.5 cc). Previously was 28.2 cc Mild diffuse heterogenous echotexture of the right testes. Previously noted focal hypoechoic lesionin the right testes is not visualized on the given images.. Normal arterial waveforms. No definite venous waveforms documented. Slightly thickened right epididymal head, measuring approximately 1.8 x 0.9 cm. Several epididymal head cysts noted, the largest one measuring up to 1.1 cm. There is an apparent focal mixed echogenicity lesion noted in the inferior right epididymis as seen on images 4, 5 and 16, with no significanthyperemia, which is probably related to resolving epididymitis. No significant hydrocele or varicocele. LEFT: Left testicle size: 3.1 x 1.1 x 2.4 cm (4.6 cc). Previously was 6.4 cc Slight diffuse heterogenous echotexture of the left testes with no focal lesion. Normal arterial waveforms. No definite venous waveforms documented.. Few epididymal head cysts noted measuring up to 7 mm. The left epididymal head measures up to 6 mm. No significant hydrocele or varicocele. Mild diffuse thickening of the scrotal wall again noted. IMPRESSION: Limited study, as described above Improvement in the previously noted right-sided epididymo-l orchitis. Right testes is smaller in size, compared to the prior study. Previously noted focal hypoechoic region in the right testes is notclearly seen on the given images. However please note that evaluation is limited due to lack of cine images. Focal prominent area of mixed echogenicity in the region of the inferior right epididymis with no definite vascularity, may be related to resolving epididymitis. Please note if patient has persistent symptoms may consider short interval follow-up ultrasound at [facility] with a radiologist present.. WSN: [id number] Ordering Physician: Kori Decker Dictated By: Sharla Vargas MD Dictated Date/Time: 07/16/24 2:00 pm Reviewed By: Sharla Vargas MD Signed By: Sharla Vargas MD Signed Date/Time: 07/16/24 2:00 pm Transcribed By: ALONZO Transcribed Date/Time: 07/16/24 1:49 pm Social History Social History Type Response Tobacco Use: Former Smoker. Sex Sex Representation Male (finding) Patient Care team information Care Team Personnel Name: Gilda Atkinson RN Position: S RN Member Role: Primary Care Nurse Name: Rina Stringer RN Position: S RN Member Role: Primary Care Nurse Name: Natalya Yost RN Position: [facility] RN Member Role: Primary Care Nurse Name: Emily Tapia RN Position: [facility] RN Member Role: Primary Care Nurse Name: Estela Lugo RN Position: [facility] RN Member Role: Primary Care Nurse Name: Matthew Cueto RN Position: [facility] RN Member Role: Primary Care Nurse Name: Haley Irene RN Position: [facility] RN Member Role: Primary Care Nurse Name: Kaley Feng RN Position: [facility] RN Member Role: Primary Care Nurse Name: Natalya Davis RN Position: [facility] RN Member Role: Primary Care Nurse Name: Jonathan Campoverde MD Position: Reference Physician Member Role: PCP Address: [address] [place] [address] [address] Tele[employer]: Name: Kaylene Reid RN Position: [facility] RN Member Role: Primary Care Nurse Name: Cedric Dodson RN Position: [facility] RN Member Role: Primary Care Nurse Name: Cory Zhou RN Position: [facility] RN Member Role: Primary Care Nurse Name: Deni Gramajo MD Position: [facility] Outreach Member Role: Lifetime Consulting Physician Address: [address] [facility] [place], [place] [address] Telecom: Name: Brenda Mackenzie RN Position: [facility] RN Member Role: Primary Care Nurse Name: Elsa Hawkins RN Position: [facility] RN Member Role: Primary Care Nurse Name: Malathi Borges RN Position: [facility] RN Member Role: Primary Care Nurse Name: Riley Urias MD Position: [facility] Renal MD Member Role: Lifetime Consulting Physician Address: [address] [facility] [place] [address]- Telecom: Name: Heide Carrero RN Position: [facility] RN Member Role: Primary Care Nurse Name: Janett Venegas RN Position: [facility] AMB Nurse Member Role: Primary Care Nurse Name: Jorgito Kim RN Position: [facility] RN Member Role: Primary Care Nurse Name: Alberta Doherty RN Position: [facility] SN RN Member Role: Primary Care Nurse Name: Caprice Hinds RN Position: [facility] RN Member Role: Primary Care Nurse Name: Gillian Uriostegui RN Position: [facility] Hospital Adult Psychiatrist Member Role: Primary Care Nurse Name: Bo PYLE, Heide Vidal Position: [facility] RN Member Role: Primary Care Nurse Name: Carie Geiger RN Position: [facility] RN Member Role: Primary Care Nurse Care Team Related Persons Name: ALEXANDER DELFINA Name: ANMOL MUNOZ Insurance Providers Guarantor name: MATHIEU [facility] Health Plan Information #: 2 Payer: JENNIFER LAR[employer] [facility] Member Number: [id number] Policy Number: NA Group Number: NA Health Plan Information #: 1 Payer: MEDICARE PART B OUTPT Member Number: [id number] Policy Number: NA Group Number: NA
--- OUTSIDE RECORDS SUMMARY | 2024-07-29 07:56 | XMS_ITS | Patient Health Record ---
Author Organization [facility] Address [address] [place] [address] Care Team Providers Care Blanching Machine Operator Name Role Phone Gilles THOMPSON, Jonathan Primary Care Provider Sandeep Diallo Unavailable [phone] Allergies Allergen (clinical drug ingredient) Drug/Non Drug Allergy documented on EMR Reaction Allergy Type Onset Date Status povidone-iodine Betadine anaphylaxis- any Fish Drug Allergy Active tamsulosin Flomax nightmares Drug Allergy Activ e Results Component Value Reference Range Notes HEMOGLOBIN A1C (GLYCOHEMOGLO BIN) Reviewed date:07/30/2023 08:30:30 AM Interpretation: Performing Lab: Notes/Report: HEMOGLOBIN A1C % (HH) 5.9 HEMOGLOBIN A1C (GLYCOHEMOGLO BIN) Reviewed date:02/16/2024 10:22:24 AM Interpretation: Performing Lab: Notes/Report: HEMOGLOBIN A1C % (HH) 6 HEMOGLOBIN A1C (GLYCOHEMOGLO BIN) Reviewed date:07/08/2024 08:35:36 AM Interpretation: Performing Lab: Notes/Report: TOTAL HEMOGLOBIN (HGBA1C) 5.7 HEMOGLOBIN A1C (GLYCOHEMOGLO BIN) Reviewed date:10/27/2023 08:33:54 AM Interpretation: Performing Lab: Notes/Report: HEMOGLOBIN A1C % (HH) 6.1 Reason For Referral No Information Medications Medication [...] Problem Acquired hammer toe of right foot (4048380988045 105) Other hammer toe(s) (acquired), right foot (M20.41) Active confirmed Response to treatment,I mprovement Problem Type 2 diabetes mellitus with peripheral angiopathy (397783860) Type 2 diabetes mellitus with diabetic peripheral angiopathy without gangrene (E11.51) Active confirmed Problem Acquired hammer toe of left foot (2068039252323 103) Other hammer toe(s) (acquired), left foot (M20.42) Active confirmed Response to treatment,I mprovement Problem Plantar wart (95726647) Plantar wart (B07.0) Active confirmed Chronic Vital Signs Height 5ft 10in in 07/08/2024 Weight 237 lbs 07/08/2024 BMI 34 kg/m2 07/08/2024 Procedures Procedure Date Ordered Date Performed Result Body Sit e 40944-Pkzj Destruction, 1-14 07/30/2023 N/A 50120-EXXGSTX NAIL, 6 OR MORE 09/03/2023 N/A 31682-Xoom Destruction, 1-14 09/03/2023 N/A 87797-SEEL SKIN LESIONS, 2 TO 4 09/03/2023 N/A 31713-Zeql Destruction, 1-14 10/27/2023 N/A 05603-PGIYWBK NAIL, 6 OR MORE 12/01/2023 N/A 72206-Tkoh Destruction, 1-14 12/01/2023 N/A 05556-SWQD SKIN LESIONS, 2 TO 4 12/01/2023 N/A 40376-Unbj Destruction, 1-14 01/12/2024 N/A 18872-DGRMSPR NAIL, 6 OR MORE 02/16/2024 N/A 23165-Warb Destruction, 1-14 02/16/2024 N/A 19377-JZJB SKIN LESIONS, 2 TO 4 02/16/2024 N/A 13234-Nphp Destruction, 1-14 03/18/2024 N/A 25728-QFOVMVX NAIL, 6 OR MORE 04/27/2024 N/A 74596-Szfi Destruction, 1-14 04/27/2024 N/A 29742-JUDR SKIN LESIONS, 2 TO 4 04/27/2024 N/A 18596-Rryk Destruction, 1-14 06/04/2024 N/A 77813-HKMFVZC NAIL, 6 OR MORE 07/08/2024 N/A 06148-Zfkv Destruction, 1-14 07/08/2024 N/A 14294-TKDS SKIN LESIONS, 2 TO 4 07/08/2024 N/A Encounters Encounter Location Date Provider Diagnosis [facility] [address] 07/30/2023 Sandeep Buckley Plantar wart B07.0 ; Pain in right foot M79.671 and Pain in left foot M79.[address] [facility] [address] 09/03/2023 Sandeep Ina Type 2 diabetes mellitus with diabetic peripheral angiopathy without gangrene E11.51 ; Plantar wart B07.0 ; Tinea unguium B35.1 ; Pain in right toe(s) M79.674 ; Pain in left toe(s) M79.675 ; Pain in right foot M79.671 and Pain in left foot M79.[address] [address] 10/27/2023 Sandeep Ina Right foot pain M79.671 ; Plantar wart B07.0 ; Left foot pain M79.672 ; Other hammer toe(s) (acquired), right foot M20.41 and Other hammer toe(s) (acquired), left foot M20.[address] [address] 12/01/2023 Sandeep Buckley Type 2 diabetes mellitus with diabetic peripheral angiopathy without gangrene E11.51 ; Plantar wart B07.0 ; Tinea unguium B35.1 ; Pain in right toe(s) M79.674 ; Pain in left toe(s) M79.675 ; Pain in right foot M79.671 and Pain in left foot M79.[address] [address] 01/12/2024 Sandeep Buckley Right foot pain M79.671 ; Plantar wart B07.0 and Left foot pain M79.[address] [address] 02/16/2024 Sandeep Buckley Type 2 diabetes mellitus with diabetic peripheral angiopathy without gangrene E11.51 ; Plantar wart B07.0 ; Tinea unguium B35.1 ; Pain in right toe(s) M79.674 ; Pain in left toe(s) M79.675 ; Pain in right foot M79.671 ; Pain in left foot M79.672 ; Other hammer toe(s) (acquired), right foot M20.41 and Other hammer toe(s) (acquired), left foot M20.[address] [place] [address] 03/18/2024 Sandeep Ina Right foot pain M79.671 ; Plantar wart B07.0 and Left foot pain M79.[address] [address] 04/27/2024 Sandeep Ina Type 2 diabetes mellitus with diabetic peripheral angiopathy without gangrene E11.51 ; Plantar wart B07.0 ; Tinea unguium B35.1 ; Pain in right toe(s) M79.674 ; Pain in left toe(s) M79.675 ; Pain in right foot M79.671 and Pain in left foot M79.[address] [address] 06/04/2024 Sandeep Ina Right foot pain M79.671 ; Plantar wart B07.0 and Left foot pain M79.[address] [address] 07/08/2024 Sandeep Buckley Type 2 diabetes mellitus [...] Treatment Pending Test Test Name Order Date 33999-FSKQNMC NAIL, 6 OR MORE 08/21/2017 60666-TCWRAWD NAIL, 6 OR MORE 10/27/2017 70579-UPXQXLR NAIL, 6 OR MORE 01/15/2018 54766-VHHODQW NAIL, 6 OR MORE 04/13/2018 29572-RFFHBOC NAIL, 6 OR MORE 07/06/2018 95693-TVSEHIS NAIL, 6 OR MORE 2018 21719-IRFBSJZ NAIL, 6 OR MORE 12/31/2018 81975-WUEHURS NAIL, 6 OR MORE 03/18/2019 90116-IKIBQMT NAIL, 6 OR MORE 05/27/2019 00839-OEGNLQS NAIL, 6 OR MORE 08/16/2019 07120-NEVOLKR NAIL, 6 OR MORE 10/28/2019 93423-TCYZHVR NAIL, 6 OR MORE 01/17/2020 03485-BXCEDCH NAIL, 6 OR MORE 04/19/2020 99657-QRLSDBN NAIL, 6 OR MORE 07/05/2020 80875-XVWXZYN NAIL, 6 OR MORE 09/21/2020 68644-YLZRSDV NAIL, 6 OR MORE 12/04/2020 94762-UWWJVAF NAIL, 6 OR MORE 02/15/2021 74898-SJWIHCZ NAIL, 6 OR MORE 04/25/2021 26612-CHPSKDA NAIL, 6 OR MORE 07/05/2021 88857-NOHTBYV NAIL, 6 OR MORE 09/20/2021 42657-EOWEMLC NAIL, 6 OR MORE 01/09/2022 31583-FINSZKB NAIL, 6 OR MORE 04/15/2022 86669-XHLPWRX NAIL, 6 OR MORE 07/11/2022 11054-UFUTYOG NAIL, 6 OR MORE 10/03/2022 20513-LDEPODB NAIL, 6 OR MORE 01/09/2023 02359-CJOGRDF NAIL, 6 OR MORE 03/27/2023 21749-JVGRIWA NAIL, 6 OR MORE 06/23/2023 88505-OTZEPQR NAIL, 6 OR MORE 09/03/2023 66945-QNWWAGQ NAIL, 6 OR MORE 12/01/2023 60333-JEERGYZ NAIL, 6 OR MORE 02/16/2024 22967-SFXCFJT NAIL, 6 OR MORE 04/27/2024 75219-WQTJYEI NAIL, 6 OR MORE 07/08/2024 32019-Qvco Destruction, 1-14 07/08/2024 40290-Xjox Destruction, 1-14 04/27/2024 34828-Kkmj Destruction, -14 02/16/2024 51899-Iuoh Destruction, -14 01/12/2024 63440-Zkma Destruction, -14 03/18/2024 33522-Ompf Destruction, 1-14 12/01/2023 52088-Mtyu Destruction, -14 07/30/2023 17230-Dsin Destruction, -14 10/27/2023 21735-Vuoi Destruction, -14 09/03/2023 22603-Tozn Destruction, -14 06/23/2023 02365-Phzq Destruction, -14 06/04/2024 30568-Jeyv Destruction, -14 03/27/2023 93056-Zqtf Destruction, -14 02/20/2023 71306-Mxog Destruction, -14 05/05/2023 81653-Xydl Destruction, -14 01/09/2023 88719-Ewmz Destruction, -14 08/22/2022 76764-Bwan Destruction, -14 11/18/2022 57082-Thdr Destruction, -14 10/03/2022 97921-Enbr Destruction, -14 07/11/2022 11870-Carr Destruction, -14 04/15/2022 49800-Icur Destruction, -14 05/30/2022 26983-Tuyx Destruction, -14 02/21/2022 03079-Omrp Destruction, -14 09/20/2021 66295-Jxsw Destruction, -14 10/29/2021 79490-Hjmp Destruction, 08-1712/05/2021 66875-Cgkz Destruction, 08-1701/09/2022 52362-Whrp Destruction, 08-1707/05/2021 84926-Isco Destruction, 08-1704/25/2021 15861-Gluv Destruction, 08-1705/31/2021 77198-Fxra Destruction, 08-1702/15/2021 02287-Uhfu Destruction, 08-1703/21/2021 09160-Pwmh Destruction, 08-1712/04/2020 40807-Etxn Destruction, 08-1701/11/2021 47920-Buqx Destruction, 08-1709/21/2020 88991-Rhfx Destruction, 08-1710/30/2020 80412-Jqji Destruction, 08-1707/05/2020 16439-Kknn Destruction, 08-1708/14/2020 08886-Nmos Destruction, 08-1704/19/2020 44309-Dhxv Destruction, 08-1706/05/2020 76101-Rmqz Destruction, 08-1701/17/2020 55667-Dxaw Destruction, 08-1703/09/2020 67498-Ouxk Destruction, 08-1710/28/2019 59590-Nmis Destruction, 08-1712/09/2019 60314-Jdia Destruction, 08-1708/16/2019 77502-Mxgr Destruction, 08-1709/22/2019 60064-Caun Destruction, 08-1705/27/2019 32625-Nqmt Destruction, 08-1706/24/2019 83257-Wxeu Destruction, 08-1707/14/2019 83360-Kqpu Destruction, 08-1703/18/2019 40734-Htog Destruction, 08-1704/19/2019 07591-Pfoc Destruction, 08-1712/31/2018 61474-Dniq Destruction, 08-1702/15/2019 10622-Fpdd Destruction, 08-1709/28/2018 08272-Sdkd Destruction, 08-1711/19/2018 41937-Yvfw Destruction, 08-1708/17/2018 89156-Vflf Destruction, 08-1705/25/2018 69938-Xdka Destruction, 08-1707/06/2018 86085-Vzwp Destruction, 1-14 04/13/2018 41809-Kozk Destruction, 1-14 10/27/2017 58364-Xvxq Destruction, -14 08/21/2017 42460-Evur Destruction, 1-14 01/15/2018 05119- Debride <25 sq cm 12/24/2017 76583- Debride <25 sq cm 12/31/2017 07013-DHDT SKIN LESIONS, 2 TO 4 07/11/20 80377-ZAJA SKIN LESIONS, 2 TO 4 10/04/19 23 25601-UCUF SKIN LESIONS, 2 TO 4 01/10/20 99832-UXVO SKIN LESIONS, 2 TO 4 03/27/20 57898-SQJF SKIN LESIONS, 2 TO 4 06/23/20 60224-OLDM SKIN LESIONS, 2 TO 4 09/03/19 24 21582-FZFU SKIN LESIONS, 2 TO 4 12/01/19 24 04234-SCEH SKIN LESIONS, 2 TO 4 02/16/20 24 12932-ZNZT SKIN LESIONS, 2 TO 4 04/27/20 24 93615-PPLB SKIN LESIONS, 2 TO 4 07/08/20 24 12321 - TENOTOMY, OPEN, EXTENSOR 018 Next Appt Details Provider Name:Sandeep Steele Ina , 08/12/2024 08:30:00 AM, [address] [facility], [facility] [address], [place], [address], Insurance Providers Payer Name Payer Address Payer Phone Subscriber Number Group Number Insured Name Patient Relationship to Insured Coverage Start Date Coverage End Date Medicare National [employer] [address] [place] [address] [id number] Otis Mullen Self - patient is the insured [address] [facility] [place] [address] SATHISH Meyer [phone] [id number] Otis Mullen Self - patient is the insured Medical (General) History Medical History History ICD Code asthma Chicken pox Hypertension Measles Mumps Reflux Surgical History Surgery Date(Month/Year) whipple procedure 01/2004 colon 03/22/2015 cataract surgery 06/2018 biopsy prostate 11/2022 lasik 06/20/23 Hospitalization History Reason Date(Month/Year) [facility] [place]12/24 [facility]- Kidney Stones 03/04/24-03/07/24 [facility]- pneumonia, 3 day stay 11/2023 [facility] [place] 03/2022 [facility] [place] for nine days 10/2021 [facility]- covid 07/17-08/03 Cellulitis on lt leg 09/16/2018-09/18/19 19 [facility] Dehydration 05/21/18 & 05/22/18 [facility] 01/07/18-01/10/18
[2024-07-29 08:06] LABS: MANUAL DIFF FLAG NO
[2024-07-29 08:42] LABS: Basophils Absolute Auto 0.1 X10*3/uL (0.0-0.2); Basophils Percent Auto 1.1 % (0-2); Eosinophils Absolute Auto 0.2 X10*3/uL (0.0-0.4); Eosinophils Percent Auto 1.8 % (0-4); Hematocrit 46.5 % (42.0-52.0); Hemoglobin 15.2 g/dl (14.0-18.0); Imm Gran Abs Auto 0.02 X10*3/uL (0.00-0.03); Imm Gran Pct Auto 0.2 % (0.0-0.4); Lymphocytes Absolute Auto 2.8 X10*3/uL (1.2-4.9); Lymphocytes Percent Auto 33.7 % (20-40); Mean Corpuscular HGB Conc 32.7 g/dl (31.0-36.0); Mean Corpuscular Hemoglobin 28.7 pg (27.0-33.0); Mean Corpuscular Volume 87.7 fL (80.0-98.0); Mean Platelet Volume 9.6 fL (9.4-12.4); Monocytes Absolute Auto 1.1 X10*3/uL (0.1-1.2); Monocytes Percent Auto 12.9 % (2-11); Neutrophils Absolute Auto 4.2 x10*3/uL (2.0-8.3); Neutrophils Percent Auto 50.3 % (45-73); Platelet Count 427 X10*3/uL (160-400); Red Cell Distribution Width 16.1 % (11.0-16.0); White Blood Count 8.3 X10*3/uL (4.8-10.8)
[2024-07-29 08:54] LABS: Estimated Average Glucose 134 mg/dL; Hemoglobin A1C 173.8413 umol/L; Hemoglobin A1c % 6.3 % (<6.0); Total Hemoglobin (HGBA1C) 3804.7287 umol/L
[2024-07-29 09:12] LABS: Alanine Aminotransferase 21 U/L (0-40); Alkaline Phosphatase 103 U/L (39-117); Anion Gap 11 (12-20); Aspartate Amino Transferase 23 U/L (5-37); Bilirubin Total 0.7 mg/dL (0.0-1.0); Blood Urea Nitrogen 29 mg/dL (9-16); Calcium 8.9 mg/dL (8.4-10.2); Carbon Dioxide 28 mmol/L (22-29); Chloride 106 mmol/L (96-108); Cholesterol 178 mg/dL (<200); Estimated Glomerular Filt Rate > 60; Glucose Fasting 99 mg/dL (60-99); HDL Cholesterol 44 mg/dL (>40); LDL Cholesterol Calculated 119 mg/dL (<100); Potassium 3.9 mmol/L (3.3-5.1); Sodium 141 mmol/L (135-145); Total Protein 7.6 g/dL (6.5-8.0); Triglycerides 77 mg/dL (<150)
== END 2024-07-29 07:54 | disposition home or self-care (01) ==
LOC: HO.LAB 07:53
PROVIDERS: PCP Internal Medicine; Visit Provider Internal Medicine
DX: Z13.220 Encounter for screening for lipoid disorders (principal); Z13.0 Encounter for screening for diseases of the blood and blood-forming organs and certain disorders involving the immune mechanism; Z13.6 Encounter for screening for cardiovascular disorders; R73.9 Hyperglycemia, unspecified
CPT/HCPCS: 36415; 80053; 80061; 83036; 85025

== ENCOUNTER 2024-07-30 08:53 | Outpatient (AMB) | payer MEDICARE, OTHER, SELFPAY ==
--- OUTSIDE RECORDS SUMMARY | 2024-07-30 09:08 | XMS_ITS ---
Author Organization [facility] Address [address] [place] [address] Care Team Providers Care Crystalizer Tender Name Role Phone Gilles THOMPSON, Jonathan Primary Care Provider Sandeep Diallo Unavailable [phone] Allergies Allergen (clinical drug ingredient) Drug/Non Drug [...] Ordered Date Performed Result Body Sit e 79621-UJXSFBX NAIL, 6 OR MORE 07/08/2024 N/A 59089-Iate Destruction, 1-14 07/08/2024 N/A 89925-ADSO SKIN LESIONS, 2 TO 4 07/08/2024 N/A Encounters Encounter Location Date Provider Diagnosis [facility] [place] [address] [place] [address] 07/08/2024 Sandeep Buckley Type 2 diabetes mellitus [...] Treatment Pending Test Test Name Order Date 04550-EMBMMOQ NAIL, 6 OR MORE 07/08/2024 60019-Ewzw Destruction, 1-14 07/08/2024 52550-UCPM SKIN LESIONS, 2 TO 4 07/08/20 24 Next Appt Details Follow Up: prn, Reason: Provider Name:Sandeep V Ina , 08/12/2024 08:30:00 AM, [address], [place], [address], Procedure Notes * Category Sub-Category Detail Notes Wart Treatment Procedure Verruca, as desc ribed in exam, were debrided to pin-point bleeding margins with sterile 15 surgical blade, silver nitrate chemocautery applied, recomm. immune-boosting meds such as zinc, recomm. follow up with topical chemosurgical agents, Pt defers any other forms of tx - 86914 Debride Nail 6-10 Nail debridement Performance o f this nail treatment by a nonprofessional would put this patients foot and overall health at risk. Therefore, debridement to affected nail(s), as described in exam, was performed extensively to reduce/remove overall nail length, girth, thickness, subungual debris, and necrotic tissue, by manual and/or electrical means through the use of a nail nipper and/or dremel-type ink grinder, to a more viable healthy nail [...] to maintain effectiveness in symptomatic relief - 08383 Keratoma Treatment Parring or Cutting o f Benign Hyperkeratotic Lesion(s) (-56) 2-4 Lesions - The Benign hyperkeratotic lesions, ( 4) in total, locations as stated and described in exam, were pared, and/or cut utilizing a sterile 15 blade, tissue nippers, and/or power dremel instrumentation - 40692, Q8 Progress Notes * Otis MULLENDOB: [birth year] (73 yo M)Acc No.[id number]:07/08/2024 Progress Note Patient:Otis HOPE Provider:?Sandeep Buckley DPM :1950???Age:73 Y???Sex:Male Adolfo e:07/08/2024 Address:[address] [place], [place] [address] Pcp:Jonathan Campoverde MD Subjective: * Chief Complaints: [...] admitted for nine days 10/2021[facility] [place]- kidney stone - pneumonia, 3 day stay - Kidney Stones 03/04/24-03/07/24[facility] [place] - Infection 03/12/24 * Family [...] mellitus with diabetic peripheral angiopathy without gangrene?Procedure: 68275-ZCDM SKIN LESIONS, 2 TO 4 3.?Tinea unguium?Procedure: 29854-ZPTQELB NAIL, 6 OR MORE * Procedures:?Debride Nail [...] use of a nail nipper and/or dremel-type ink grinder, to a more viable healthy nail [...] to maintain effectiveness in symptomatic relief - 55809.?Keratoma Treatment:?Parring or Cutting of Benign Hyperkeratotic Lesion(s)?(-56) 2-4 Lesions - The Benign hyperkeratotic lesions, ( 4) in total, locations as stated and described in exam, were pared, and/or cut utilizing a sterile 15 blade, tissue nippers, and/or power dremel instrumentation - 80247, Q8.?Wart Treatment:?Procedure?Verruca, as described in exam, were debrided to pin-point bleeding margins with sterile 15 surgical blade, silver nitrate chemocautery applied, recomm. immune-boosting meds such as zinc, recomm. follow up with topical chemosurgical agents, Pt defers any other forms of tx - 02460.? * Procedure Codes:?98963 DEBRI DE NAIL, 6 OR MORE, Modifiers: XS 30788 Wart Destruction, 1-14, Modifiers: XS 92084 TRIM SKIN LESIONS, 2 TO 4, Modifiers: XS , Q8 * Follow Up:?prn * Images: * Sign off status: Completed true * Provider:?Sandeep Buckley DPM Date:?2023 Generated for Shekhar mata/Adelaide/eTransmitting on:?07/30/2024 09:08 AM EST History and Physical Notes * [...]
--- OUTSIDE RECORDS SUMMARY | 2024-07-30 09:09 | XMS_ITS ---
Author Organization [facility] Address [address] [place] [address] Care Team Providers Care Interlocking Pavement Installer Name Role Phone Gilles THOMPSON, Jonathan Primary Care Provider Sandeep Diallo Unavailable [phone] Allergies Allergen (clinical drug ingredient) Drug/Non Drug [...] Ordered Date Performed Result Body Sit e 47148-Kvtn Destruction, 1-14 06/04/2024 N/A Encounters Encounter Location Date Provider Diagnosis [facility] [address] [address] 06/04/2024 Sandeep Buckley Right foot pain M79.671 ; Plantar wart B07.0 and Left foot pain M79.672 Assessments Encounter Date Diagnosis (ICD Code) Assessment Notes Treatment Notes Treatment Clinical Notes Section Notes 06/04/2024 Right foot pain (ICD-10 - M79.671) 06/04/2024 Plantar wart (ICD-10 - B07.0) 06/04/2024 Left foot pain (ICD-10 - M79.672) Plan Of Treatment Pending Test Test Name Order Date 90816-Khow Destruction, 1-06/04/2024 Next Appt Details Follow Up: prn, Reason: Provider Name:Sandeep Buckley , 08/12/2024 08:30:00 AM, [address] , [address], [place], [address], Procedure Notes * Category Sub-Category Detail Notes Wart Treatment Procedure Verruca were phan rided to pin-point bleeding margins with sterile 15 surgical blade, silver nitrate chemocautery applied, recomm. immune-boosting meds such as zinc, recomm. follow up with topical chemosurgical agents, Pt defers any other forms of tx - 58532 , DIABETES: Any more invasive procedure to wart deferred due to diabetes risk Progress Notes * Otis MUNOZDOB: [birth year] (73 yo M)Acc No.[id number]:06/04/2024 Progress Notes Patient:?Otis Munoz Provider:?Sandeep Buckley DPM :1950???Age:73 Y???Sex:Male Adolfo e:06/04/2024 Address:[address] [place], [place] [address] Pcp:Jonathan Campoverde MD Subjective: * Chief Complaints: [...] 09/16/2018-09/18/2018[facility]- [facility] 07/17-08/03[facility] admitted for nine days 10/2021[facility] [place] kidney stone - pneumonia, 3 day stay - Kidney Stones 03/04/24-03/07/24[facility] [place] - Infection 03/12/24 * Family History:?Mother: dece [...] defers any other forms of tx - 55322 , DIABETES: Any more invasive procedure to wart deferred due to diabetes risk.? * Procedure Codes:?72756 Wart Destruction, 1-14 * Follow Up:?prn * Images: * Sign off status: Completed true * Provider:?Sandeep Buckley DPM Date:?2023 Generated for Shekhar mata/Adelaide/Jerrod on:?07/30/2024 09:08 AM EST History and Physical [...]
--- OUTSIDE RECORDS SUMMARY | 2024-07-30 09:09 | XMS_ITS ---
Author Organization [facility] Address [address] [place] [address] Care Team Providers Care Pig Furnace Operator Name Role Phone Gilles THOMPSON, Jonathan Primary Care Provider Sandeep Diallo Unavailable [phone] Allergies Allergen (clinical drug ingredient) Drug/Non Drug [...] Ordered Date Performed Result Body Sit e 23169-MGEUYZX NAIL, 6 OR MORE 04/27/2024 N/A 72667-Dmhf Destruction, 1-14 04/27/2024 N/A 41376-SZAA SKIN LESIONS, 2 TO 4 04/27/2024 N/A Encounters Encounter Location Date Provider Diagnosis [facility] [address] [address] 04/27/2024 Sandeep Buckley Type 2 diabetes mellitus [...] Treatment Pending Test Test Name Order Date 71426-HJGHOIF NAIL, 6 OR MORE 04/27/2024 62002-Rahj Destruction, 1-14 04/27/2024 15236-ETWG SKIN LESIONS, 2 TO 4 04/27/20 Next Appt Details Follow Up: prn, Reason: Provider Name:Sandeep Buckley , 08/12/2024 08:30:00 AM, [address], [address], [place], [address], Procedure Notes * Category Sub-Category Detail Notes Wart Treatment Procedure Verrucae were de brided to pin-point bleeding margins with sterile 15 surgical blade, silver nitrate chemocautery applied, recomm. immune-boosting meds such as zinc, recomm. follow up with topical chemosurgical agents, Pt defers any other forms of tx - 01641 Debride Nail 6-10 Nail debridement Performance o f this nail treatment by a nonprofessional would put this patients foot and overall health at risk. Therefore, nail debridement was performed extensively to reduce/remove overall nail length, girth, thickness, subungual debris, and necrotic tissue, by manual and/or electrical means through the use of a nail nipper and/or dremel-type crystal grinder, to a more viable healthy nail plate or bed tissue 6-10. Silver nitrate used for any petechial bleeding as necessary. Definitive antifungal treatment options have been reviewed and discussed with the patient. The patient chooses, no pharmaceutical tx - 18610 Keratoma Treatment Parring or Cutting o f Benign Hyperkeratotic Lesion(s) (-56) 2-4 Lesions - The Benign hyperkeratotic lesions, as described above were pared, and/or cut utilizing a sterile 15 blade, tissue nippers, and/or dremel - 03162 , Q8 Progress Notes * Otis MUNOZDOB: [birth year] (73 yo M)Acc No.[id number]:04/27/2024 Progress Notes Patient:?Sonjapolo Otis Choi Provider:?Sandeep Buckley DPM :1950???Age:73 Y???Sex:Male Adolfo e:04/27/2024 Address: [address] [facility], [place] Pcp:Jonathan Campoverde MD Subjective: * Chief Complaints: [...] & 05/22/18Cellulitis on lt leg 09/16/2018-09/18/2018[facility] 07/[facility]08/03[facility] [place] [facility] for [facility] 10/2021[facility] [place] kidney stone - pneumonia, 3 day stay - Kidney Stones 03/04/24-03/07/24[facility] [place] - Infection 03/12/24 * Family History:?Mother: dece [...] mellitus with diabetic peripheral angiopathy without gangrene?Procedure: 35030-IWUW SKIN LESIONS, 2 TO 4 3.?Tinea unguium?Procedure: 52065-UDLJNHL NAIL, 6 OR MORE * Procedures:?Debride Nail 6-10:?Nail debridement?Performance of this nail treatment by a nonprofessional would put this patients foot and overall health at risk. Therefore, nail debridement was performed extensively to reduce/remove overall nail length, girth, thickness, subungual debris, and necrotic tissue, by manual and/or electrical means through the use of a nail nipper and/or dremel-type crystal grinder, to a more viable healthy nail plate or bed tissue 6-10. Silver nitrate used for any petechial bleeding as necessary. Definitive antifungal treatment options have been reviewed and discussed with the patient. The patient chooses, no pharmaceutical tx - 11381.?Keratoma Treatment:?Parring or Cutting of Benign Hyperkeratotic Lesion(s)?(-56) 2-4 Lesions - The Benign hyperkeratotic lesions, as described above were pared, and/or cut utilizing a sterile 15 blade, tissue nippers, and/or dremel - 30848 , Q8.?Wart Treatment:?Procedure?Verrucae were debrided to pin-point bleeding margins with sterile 15 surgical blade, silver nitrate chemocautery applied, recomm. immune-boosting meds such as zinc, recomm. follow up with topical chemosurgical agents, Pt defers any other forms of tx - 54176.? * Procedure Codes:?64306 DEBRI DE NAIL, 6 OR MORE, Modifiers: XS 14676 Wart Destruction, 1-14, Modifiers: XS 15562 TRIM SKIN LESIONS, 2 TO 4, Modifiers: [...]
--- OUTSIDE RECORDS SUMMARY | 2024-07-30 09:09 | XMS_ITS | Patient Health Record ---
Author Organization [facility] Address [address] [place] [address] Care Team Providers Care [facility] Associate Professor Name Role Phone Gilles THOMPSON, Jonathan Primary Care Provider Sandeep Diallo Unavailable [phone] Allergies Allergen (clinical drug ingredient) Drug/Non Drug [...] Problem Acquired hammer toe of right foot (4568809158157 105) Other hammer toe(s) (acquired), right foot (M20.41) Active confirmed Response to treatment,I mprovement Problem Type 2 diabetes mellitus with peripheral angiopathy (057585216) Type 2 diabetes mellitus with diabetic peripheral angiopathy without gangrene (E11.51) Active confirmed Problem Acquired hammer toe of left foot (2180211933274 103) Other hammer toe(s) (acquired), left foot (M20.42) Active confirmed Response to treatment,I mprovement Problem Plantar wart (55471711) Plantar wart (B07.0) Active confirmed Chronic Vital Signs Height 5ft 10in in 07/08/2024 Weight 237 lbs 07/08/2024 BMI 34 kg/m2 07/08/2024 Procedures Procedure Date Ordered Date Performed Result Body Sit e 88607-Qrrt Destruction, 1-14 07/30/2023 N/A 71570-SKYIONG NAIL, 6 OR MORE 09/03/2023 N/A 72791-Kyzj Destruction, 1-14 09/03/2023 N/A 69732-WPFX SKIN LESIONS, 2 TO 4 09/03/2023 N/A 14371-Kcqo Destruction, 1-14 10/27/2023 N/A 81335-QMEXKIR NAIL, 6 OR MORE 12/01/2023 N/A 78305-Hwta Destruction, 1-14 12/01/2023 N/A 45140-TSYM SKIN LESIONS, 2 TO 4 12/01/2023 N/A 97431-Xcaf Destruction, 1-14 01/12/2024 N/A 53015-UJZRFON NAIL, 6 OR MORE 02/16/2024 N/A 61301-Jixn Destruction, 1-14 02/16/2024 N/A 77295-SXTV SKIN LESIONS, 2 TO 4 02/16/2024 N/A 14335-Bava Destruction, 1-14 03/18/2024 N/A 64437-JYHXSQG NAIL, 6 OR MORE 04/27/2024 N/A 16501-Icgx Destruction, 1-14 04/27/2024 N/A 27557-PBFS SKIN LESIONS, 2 TO 4 04/27/2024 N/A 20560-Obea Destruction, 1-14 06/04/2024 N/A 39117-EMYQPLC NAIL, 6 OR MORE 07/08/2024 N/A 38457-Nrvh Destruction, 1-14 07/08/2024 N/A 64138-JRIW SKIN LESIONS, 2 TO 4 07/08/2024 N/A Encounters Encounter Location Date Provider Diagnosis [facility] [address] 07/30/2023 Sandeep Buckley Plantar wart B07.0 ; Pain in right foot M79.671 and Pain in left foot M79.[address] [facility] [address] 09/03/2023 Sandeep Ina Type 2 diabetes mellitus with diabetic peripheral angiopathy without gangrene E11.51 ; Plantar wart B07.0 ; Tinea unguium B35.1 ; Pain in right toe(s) M79.674 ; Pain in left toe(s) M79.675 ; Pain in right foot M79.671 and Pain in left foot M79.[address] [address] 10/27/2023 Sandeep Ina Right foot pain M79.671 ; Plantar wart B07.0 ; Left foot pain M79.672 ; Other hammer toe(s) (acquired), right foot M20.41 and Other hammer toe(s) (acquired), left foot M20.[address] [address] 12/01/2023 Sandeep Buckley Type 2 diabetes mellitus with diabetic peripheral angiopathy without gangrene E11.51 ; Plantar wart B07.0 ; Tinea unguium B35.1 ; Pain in right toe(s) M79.674 ; Pain in left toe(s) M79.675 ; Pain in right foot M79.671 and Pain in left foot M79.[address] [address] 01/12/2024 Sandeep Buckley Right foot pain M79.671 ; Plantar wart B07.0 and Left foot pain M79.[address] [address] 02/16/2024 Sandeep Buckley Type 2 diabetes mellitus with diabetic peripheral angiopathy without gangrene E11.51 ; Plantar wart B07.0 ; Tinea unguium B35.1 ; Pain in right toe(s) M79.674 ; Pain in left toe(s) M79.675 ; Pain in right foot M79.671 ; Pain in left foot M79.672 ; Other hammer toe(s) (acquired), right foot M20.41 and Other hammer toe(s) (acquired), left foot M20.[address] [place] [address] 03/18/2024 Sandeep Ina Right foot pain M79.671 ; Plantar wart B07.0 and Left foot pain M79.[address] [address] 04/27/2024 Sandeep Ina Type 2 diabetes mellitus with diabetic peripheral angiopathy without gangrene E11.51 ; Plantar wart B07.0 ; Tinea unguium B35.1 ; Pain in right toe(s) M79.674 ; Pain in left toe(s) M79.675 ; Pain in right foot M79.671 and Pain in left foot M79.[address] [address] 06/04/2024 Sandeep Ina Right foot pain M79.671 ; Plantar wart B07.0 and Left foot pain M79.[address] [address] 07/08/2024 Sandeep Buckley Type 2 diabetes mellitus [...] Treatment Pending Test Test Name Order Date 22583-KKXXNCX NAIL, 6 OR MORE 08/21/2017 50007-ZKGMKAZ NAIL, 6 OR MORE 10/27/2017 34332-VUBOLLD NAIL, 6 OR MORE 01/15/2018 70955-BRDONUZ NAIL, 6 OR MORE 04/13/2018 25832-CNQWQMT NAIL, 6 OR MORE 07/06/2018 07370-ZASLENP NAIL, 6 OR MORE 2018 43349-KMRAOQQ NAIL, 6 OR MORE 12/31/2018 77822-CWEAVXE NAIL, 6 OR MORE 03/18/2019 58504-ACFHJIQ NAIL, 6 OR MORE 05/27/2019 53310-HZXISXV NAIL, 6 OR MORE 08/16/2019 89017-VOYEOWZ NAIL, 6 OR MORE 10/28/2019 78829-VTQGBPT NAIL, 6 OR MORE 01/17/2020 62974-XUAVVYF NAIL, 6 OR MORE 04/19/2020 98815-YYCBRBA NAIL, 6 OR MORE 07/05/2020 10135-BRDJUVC NAIL, 6 OR MORE 09/21/2020 28519-JJFVWSX NAIL, 6 OR MORE 12/04/2020 42695-CDHXONV NAIL, 6 OR MORE 02/15/2021 32364-XELXBTQ NAIL, 6 OR MORE 04/25/2021 73652-TYJTYNL NAIL, 6 OR MORE 07/05/2021 14216-UADNOZW NAIL, 6 OR MORE 09/20/2021 20305-YZREGNL NAIL, 6 OR MORE 01/09/2022 57564-OWPWUIE NAIL, 6 OR MORE 04/15/2022 59424-CHQPFKY NAIL, 6 OR MORE 07/11/2022 59713-PRSGKTF NAIL, 6 OR MORE 10/03/2022 77559-NZASGOZ NAIL, 6 OR MORE 01/09/2023 76713-HWBSUQP NAIL, 6 OR MORE 03/27/2023 69902-ZXSGHSI NAIL, 6 OR MORE 06/23/2023 29091-KWOAZSI NAIL, 6 OR MORE 09/03/2023 93252-HXDLRMK NAIL, 6 OR MORE 12/01/2023 64572-OFYLJQQ NAIL, 6 OR MORE 02/16/2024 54094-BPXFBHH NAIL, 6 OR MORE 04/27/2024 89996-RCLPTNF NAIL, 6 OR MORE 07/08/2024 93548-Pzxo Destruction, 1-14 07/08/2024 81934-Qlma Destruction, 1-14 04/27/2024 32909-Gops Destruction, -14 02/16/2024 22362-Usag Destruction, -14 01/12/2024 53695-Epib Destruction, -14 03/18/2024 44672-Cgsy Destruction, 1-14 12/01/2023 15857-Wfcm Destruction, -14 07/30/2023 31736-Ajpx Destruction, -14 10/27/2023 47061-Wmfb Destruction, -14 09/03/2023 12925-Rhjd Destruction, -14 06/23/2023 97651-Haoj Destruction, -14 06/04/2024 10032-Rvzk Destruction, -14 03/27/2023 05828-Aavq Destruction, -14 02/20/2023 10880-Uzih Destruction, -14 05/05/2023 28538-Jdbv Destruction, -14 01/09/2023 81174-Idhg Destruction, -14 08/22/2022 76939-Bffn Destruction, -14 11/18/2022 32550-Mrjk Destruction, -14 10/03/2022 17486-Sols Destruction, -14 07/11/2022 71599-Uppf Destruction, -14 04/15/2022 72254-Grzb Destruction, -14 05/30/2022 64133-Looj Destruction, -14 02/21/2022 29257-Jcmj Destruction, -14 09/20/2021 75187-Bmkc Destruction, -14 10/29/2021 79329-Xhrg Destruction, 08-1712/05/2021 98052-Zmau Destruction, 08-1701/09/2022 07351-Xpdi Destruction, 08-1707/05/2021 31177-Donc Destruction, 08-1704/25/2021 06540-Viiu Destruction, 08-1705/31/2021 51559-Nocs Destruction, 08-1702/15/2021 13291-Qmxo Destruction, 08-1703/21/2021 36916-Qpnm Destruction, 08-1712/04/2020 96917-Lnyt Destruction, 08-1701/11/2021 16144-Ifjo Destruction, 08-1709/21/2020 78016-Bepd Destruction, 08-1710/30/2020 92223-Wowk Destruction, 08-1707/05/2020 53799-Hzeq Destruction, 08-1708/14/2020 62555-Ufpx Destruction, 08-1704/19/2020 18016-Bdbi Destruction, 08-1706/05/2020 36294-Qerq Destruction, 08-1701/17/2020 90765-Nina Destruction, 08-1703/09/2020 61731-Silt Destruction, 08-1710/28/2019 21517-Llmm Destruction, 08-1712/09/2019 08321-Gvic Destruction, 08-1708/16/2019 75276-Xibj Destruction, 08-1709/22/2019 23191-Ppat Destruction, 08-1705/27/2019 27071-Ksnr Destruction, 08-1706/24/2019 15185-Pkdz Destruction, 08-1707/14/2019 10689-Cbju Destruction, 08-1703/18/2019 31499-Lyxj Destruction, 08-1704/19/2019 64257-Njmz Destruction, 08-1712/31/2018 72870-Mkhp Destruction, 08-1702/15/2019 02796-Qhrq Destruction, 08-1709/28/2018 53429-Bvod Destruction, 08-1711/19/2018 46251-Omsg Destruction, 08-1708/17/2018 75879-Bphk Destruction, 08-1705/25/2018 92528-Syec Destruction, 08-1707/06/2018 21072-Mjbc Destruction, 1-14 04/13/2018 68353-Wbqc Destruction, 1-14 10/27/2017 25467-Yqnj Destruction, -14 08/21/2017 51871-Drlq Destruction, 1-14 01/15/2018 91674- Debride <25 sq cm 12/24/2017 52645- Debride <25 sq cm 12/31/2017 09432-LVYM SKIN LESIONS, 2 TO 4 07/11/20 48372-RDZU SKIN LESIONS, 2 TO 4 10/04/19 23 27479-DSKG SKIN LESIONS, 2 TO 4 01/10/20 20893-UDYF SKIN LESIONS, 2 TO 4 03/27/20 25674-VXSP SKIN LESIONS, 2 TO 4 06/23/20 48772-BFNH SKIN LESIONS, 2 TO 4 09/03/19 24 84507-KXRG SKIN LESIONS, 2 TO 4 12/01/19 24 69970-IPEP SKIN LESIONS, 2 TO 4 02/16/20 24 81254-LWJD SKIN LESIONS, 2 TO 4 04/27/20 24 18467-AFSE SKIN LESIONS, 2 TO 4 07/08/20 24 42734 - TENOTOMY, OPEN, EXTENSOR 018 Next Appt Details Provider Name:Sandeep Steele Ina , 08/12/2024 08:30:00 AM, [address] [facility], [facility] [address], [place], [address], Insurance Providers Payer Name Payer Address Payer Phone Subscriber Number Group Number Insured Name Patient Relationship to Insured Coverage Start Date Coverage End Date Medicare National [employer] [address] [place] [address] [id number] Otis Mullen Self - patient is the insured [address] [address] SATH[place] Meyer [phone] [id number] Otis Mullen Self - patient is the insured Medical (General) History Medical History History ICD Code asthma Chicken pox Hypertension Measles Mumps Reflux Surgical History Surgery Date(Month/Year) whipple procedure 01/2004 colon 03/22/2015 cataract surgery 06/2018 biopsy prostate 11/2022 lasik 06/20/23 Hospitalization History Reason Date(Month/Year) [facility] [place]fection 03/12/24 [facility]- Kidney Stones 03/04/24-03/07/24 [facility]- pneumonia, 3 day stay 11/2023 [facility] [place] 03/2022 [facility] [place] admitted for nine days 10/2021 [facility]- covid 07/17-08/03 Cellulitis on lt leg 09/16/2018-09/18/19 19 [facility] Dehydration 05/21/18 & 05/22/18 [facility] 01/07/18-01/10/18
[2024-07-30 09:23] LABS: Prothrombin Time Whole Bld POC 22.2 sec (11.1-13.5); ~PT, ~INR - Anti Coag Clinic 1.9 (0.9-1.1)
--- NOTE | 2024-07-30 09:27 | MHC.OFFVISCO ---
Intake Intake Visit Reasons: Anticoagulation Allergies nicotine Allergy (Intermediate, Verified 07/30/24 09:17) Rash fish derived [FISH] Allergy (Unknown, Verified 07/30/24 09:17) ANGIOEDEMA tamsulosin [Flomax] Adverse Reaction (Intermediate, Verified 07/30/24 09:17) nightmares Medication List - Last Reconciled 07/30/24 by Marie Pollock RN albuterol sulfate mg inhalation Q6H PRN albuterol sulfate 90 mcg/actuation inhalation blood sugar diagnostic (FreeStyle Lite Strips) daily blood-glucose meter (FreeStyle [place] Lite kit) As directed [custom heat molded multidensity innersoles wear 3 pairs of custom heat molded multidensity innersoles wear] docusate sodium (Stool Softener) 100 mg PO DAILY [extra depth orthopedic shoes with 3 pairs of custom heat molded multidensity innersoles wear] fluticasone propionate 50 mcg/actuation 1 spray intranasal DAILY tpsokdxatsh-dxcxjuiiy-ulxesyxi 100-62.5-25 mcg (Trelegy Ellipta) 1 ea inhalation DAILY furosemide 40 mg PO QAM glimepiride 1 mg PO DAILY hydrocortisone 2.5% appl topical lancets (FreeStyle Lancets) test daily metformin 1,000 mg PO BID metoprolol succinate ER 50 mg PO DAILY omeprazole 40 mg PO DAILY polyethylene glycol 3350 (Miralax) 17 grams PO DAILY saw palmetto 450 mg PO BID solifenacin 10 mg PO DAILY triamcinolone acetonide 0.1% 1 appl topical BID-TID vitamins A,C,U-ypox-nponkr 2,148 mcg-113 mg-45 mg-17.4mg (PreserVision AREDS) 1 tab PO BID warfarin 7.5 mg See Protocol PO DAILY MDD 1.5 tablets daily Nursing Note Amb to [facility] feeling well, sts took last cipro this morning Medications and supplements reviewed No other changes in health, diet, medications, or supplements, Denies any signs and symptoms of bleeding, bruising, or clotting. Bleeding, bruising, clotting discussed INR: 1.9 below range, had dose adjustment previous week anticipating rise from Cipro and has been consuming more greens as instructed Dose: continue usual dosing 11.25mg x 3 days and 7.5mg x 4 days, no greens tonight then balance greens and reds in diet F/U INR: 1 week Patient verbalizes understanding of instructions given Anti-Coag Initial Assessment Social Hx Patient Tobacco Use Status: Former Tobacco user Tobacco use type: Cigarette alcohol intake: current Alcohol intake frequency: holidays/special occasions only Cardiovascular Hx: HTN, CHF and Cardiomyopathy Lung Disease HX: Asthma, COPD and DVT/PE Endocrine Hx: Diabetes Blood Disorder Hx: Other GI Hx: Other Cancer HX: No Coding Level of Care Code Est Patient Level 1 Diagnoses Current use of anticoagulant therapy Z79.01 Time Spent (min) 15 Assessment & Plan Assessment & Plan (1) Current use of anticoagulant therapy: Code(s): Z79.01 - [facility] (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
== END 2024-07-30 10:02 | disposition home or self-care (01) ==
LOC: HO.ACS 08:53
PROVIDERS: PCP Internal Medicine; Visit Provider Internal Medicine
DX: Z79.01 Long term (current) use of anticoagulants (principal)

== ENCOUNTER → 2024-07-30 08:53 | Outpatient (BNVA) | payer MEDICARE, OTHER, SELFPAY | PROVIDERS: PCP Internal Medicine; Visit Provider Internal Medicine | DX: I26.99 Other pulmonary embolism without acute cor pulmonale (principal); Z79.01 Long term (current) use of anticoagulants; Z51.81 Encounter for therapeutic drug level monitoring | CPT/HCPCS: 85610; 99211 ==

== ENCOUNTER 2024-08-02 08:13 | Outpatient (AMB) | payer MEDICARE, OTHER, SELFPAY ==
--- OUTSIDE RECORDS SUMMARY | 2024-08-02 08:16 | XMS_ITS ---
[facility] Address [address] [place] [address] Care Team Providers Care Field Cane Scaler Name Role Phone Gilles THOMPSON, Jonathan Primary Care Provider Sandeep Diallo Unavailable [phone] Allergies Allergen (clinical drug ingredient) Drug/Non Drug [...] Ordered Date Performed Result Body Sit e 34702-Wprf Destruction, 1-14 06/04/2024 N/A Encounters Encounter Location Date Provider Diagnosis [facility] [address] [address] 06/04/2024 Sandeep Buckley Right foot pain M79.671 ; Plantar wart B07.0 and Left foot pain M79.672 Assessments Encounter Date Diagnosis (ICD Code) Assessment Notes Treatment Notes Treatment Clinical Notes Section Notes 06/04/2024 Right foot pain (ICD-10 - M79.671) 06/04/2024 Plantar wart (ICD-10 - B07.0) 06/04/2024 Left foot pain (ICD-10 - M79.672) Plan Of Treatment Pending Test Test Name Order Date 67586-Rgvo Destruction, 1-06/04/2024 Next Appt Details Follow Up: prn, Reason: Provider Name:Sandeep Buckley , 08/12/2024 08:30:00 AM, [address], [place], [address], Procedure Notes * Category Sub-Category Detail Notes Wart Treatment Procedure Verruca were phan rided to pin-point bleeding margins with sterile 15 surgical blade, silver nitrate chemocautery applied, recomm. immune-boosting meds such as zinc, recomm. follow up with topical chemosurgical agents, Pt defers any other forms of tx - 01700 , DIABETES: Any more invasive procedure to wart deferred due to diabetes risk Progress Notes * Otis MUNOZDOB: [birth year] (73 yo M)Acc No.[id number]:06/04/2024 Progress Notes Patient:?Otis Munoz Provider:?Sandeep Buckley DPM :1950???Age:73 Y???Sex:Male Adolfo e:06/04/2024 Address:[address] [place], [place] [address] Pcp:Jonathan Campoverde MD Subjective: * Chief Complaints: [...] 09/16/2018-09/18/2018[facility]- covid 07/17-08/03[facility] admitted for nine days 10/2021[facility] [place]- kidney stone - pneumonia, 3 day stay - Kidney Stones 03/04/24-03/07/24[facility] [place] - [place]fection 03/12/24 * Family History:?Mother: dece [...] defers any other forms of tx - 51344 , DIABETES: Any more invasive procedure to wart deferred due to diabetes risk.? * Procedure Codes:?82801 Wart Destruction, 1-14 * Follow Up:?prn * Images: * Sign off status: Completed true * Provider:?Sandeep Buckley DPM Date:?2023 Generated for Shekhar mata/Adelaide/Jerrod on:?08/02/2024 08:16 AM EST History and Physical Notes * [...]
--- OUTSIDE RECORDS SUMMARY | 2024-08-02 08:16 | XMS_ITS | Patient Health Record ---
Author Organization [facility] Address [address] [place] [address] Care Team Providers Care Form Setter Supervisor Name Role Phone Gilles THOMPSON, Jonathan Primary Care Provider Sandeep Diallo Unavailable [phone] Allergies Allergen (clinical drug ingredient) Drug/Non Drug Allergy documented on EMR Reaction Allergy Type Onset Date Status povidone-iodine Betadine anaphylaxis- any Fish Drug Allergy Active tamsulosin Flomax nightmares Drug Allergy Activ e Results Component Value Reference Range Notes HEMOGLOBIN A1C (GLYCOHEMOGLO BIN) Reviewed date:10/27/2023 08:33:54 AM Interpretation: Performing Lab: Notes/Report: HEMOGLOBIN A1C % (HH) 6.1 HEMOGLOBIN A1C (GLYCOHEMOGLO BIN) Reviewed date:07/08/2024 08:35:36 AM Interpretation: Performing Lab: Notes/Report: TOTAL HEMOGLOBIN (HGBA1C) 5.7 HEMOGLOBIN A1C (GLYCOHEMOGLO BIN) Reviewed date:02/16/2024 10:22:24 AM Interpretation: Performing Lab: Notes/Report: HEMOGLOBIN A1C % (HH) 6 Reason For Referral No Information Medications Medication [...] Custom Heat Molded Multidensity Innersoles Dx: 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), Liz Foot Deformity(M20.41,M20.42) , Preulcerative Skin Lesion(s)(L85.1) Wear [...] Problem Acquired hammer toe of right foot (9362636098990 105) Other hammer toe(s) (acquired), right foot (M20.41) Active confirmed Response to treatment,I mprovement Problem Type 2 diabetes mellitus with peripheral angiopathy (655349828) Type 2 diabetes mellitus with diabetic peripheral angiopathy without gangrene (E11.51) Active confirmed Problem Acquired hammer toe of left foot (1972114375584 103) Other hammer toe(s) (acquired), left foot (M20.42) Active confirmed Response to treatment,I mprovement Problem Plantar wart (28936347) Plantar wart (B07.0) Active confirmed Chronic Vital Signs Height 5ft 10in in 07/08/2024 Weight 237 lbs 07/08/2024 BMI 34 kg/m2 07/08/2024 Procedures Procedure Date Ordered Date Performed Result Body Sit e 50147-PVOVIRK NAIL, 6 OR MORE 09/03/2023 N/A 87125-Afaf Destruction, 1-14 09/03/2023 N/A 50584-JBJP SKIN LESIONS, 2 TO 4 09/03/2023 N/A 46601-Jzdh Destruction, 1-14 10/27/2023 N/A 92326-MRTCULC NAIL, 6 OR MORE 12/01/2023 N/A 58115-Qnht Destruction, 1-14 12/01/2023 N/A 23596-PJRE SKIN LESIONS, 2 TO 4 12/01/2023 N/A 22443-Apqr Destruction, 1-14 01/12/2024 N/A 23193-BFZVMTG NAIL, 6 OR MORE 02/16/2024 N/A 92757-Ungm Destruction, 1-14 02/16/2024 N/A 35084-BYGI SKIN LESIONS, 2 TO 4 02/16/2024 N/A 65341-Gilf Destruction, 1-14 03/18/2024 N/A 29502-PYBTVXP NAIL, 6 OR MORE 04/27/2024 N/A 78438-Fdkt Destruction, 1-14 04/27/2024 N/A 70436-PDJG SKIN LESIONS, 2 TO 4 04/27/2024 N/A 87233-Nkmg Destruction, 1-14 06/04/2024 N/A 44426-CTJUVYR NAIL, 6 OR MORE 07/08/2024 N/A 10000-Tbeb Destruction, 1-14 07/08/2024 N/A 29023-UKIQ SKIN LESIONS, 2 TO 4 07/08/2024 N/A Encounters Encounter Location Date Provider Diagnosis [facility] [address] 09/03/2023 Sandeep Buckley Type 2 diabetes mellitus with diabetic peripheral angiopathy without gangrene E11.51 ; Plantar wart B07.0 ; Tinea unguium B35.1 ; Pain in right toe(s) M79.674 ; Pain in left toe(s) M79.675 ; Pain in right foot M79.671 and Pain in left foot M79.[address] [address] 10/27/2023 Sandeep Buckley Right foot pain M79.671 ; Plantar wart B07.0 ; Left foot pain M79.672 ; Other hammer toe(s) (acquired), right foot M20.41 and Other hammer toe(s) (acquired), left foot M20.[address] [address] 12/01/2023 Sandeep Castunier Type 2 diabetes mellitus with diabetic peripheral angiopathy without gangrene E11.51 ; Plantar wart B07.0 ; Tinea unguium B35.1 ; Pain in right toe(s) M79.674 ; Pain in left toe(s) M79.675 ; Pain in right foot M79.671 and Pain in left foot M79.[address] [address] 01/12/2024 Sandeepsanjana CastIna Right foot pain M79.671 ; Plantar wart B07.0 and Left foot pain M79.[address] [address] 02/16/2024 Sandeep Castunier Type 2 diabetes mellitus with diabetic peripheral angiopathy without gangrene E11.51 ; Plantar wart B07.0 ; Tinea unguium B35.1 ; Pain in right toe(s) M79.674 ; Pain in left toe(s) M79.675 ; Pain in right foot M79.671 ; Pain in left foot M79.672 ; Other hammer toe(s) (acquired), right foot M20.41 and Other hammer toe(s) (acquired), left foot M20.[address] [address] 03/18/2024 Sandeep Ina Right foot pain M79.671 ; Plantar wart B07.0 and Left foot pain M79.[address] [address] 04/27/2024 Sandeepsanjana CastIna Type 2 diabetes mellitus with diabetic peripheral angiopathy without gangrene E11.51 ; Plantar wart B07.0 ; Tinea unguium B35.1 ; Pain in right toe(s) M79.674 ; Pain in left toe(s) M79.675 ; Pain in right foot M79.671 and Pain in left foot M79.672 [facility] [place] [address] [place] [address] 06/04/2024 Sandeep Buckley Right foot pain M79.671 ; Plantar wart B07.0 and Left foot pain M79.672 [facility] [address] 07/08/2024 Sandeep Buckley Type 2 diabetes mellitus with diabetic peripheral angiopathy without gangrene E11.51 ; Plantar wart B07.0 ; Tinea unguium B35.1 ; Pain in right toe(s) M79.674 ; Pain in left toe(s) M79.675 ; Pain in right foot M79.671 and Pain in left foot M79.672 Assessments Encounter Date Diagnosis (ICD Code) Assessment Notes Treatment Notes Treatment Clinical Notes Section Notes 09/03/2023 Type 2 diabetes mellitus with diabetic [...] M79.672) 09/03/2023 Tinea unguium (ICD-10 - B35.1) 09/03/2023 Pain in right toe(s) (ICD-10 - [...] Treatment Pending Test Test Name Order Date 91198-KJXTZWI NAIL, 6 OR MORE 08/21/2017 24102-EEFLKEC NAIL, 6 OR MORE 10/27/2017 74384-CFPFYGL NAIL, 6 OR MORE 01/15/2018 25344-WQETIJT NAIL, 6 OR MORE 04/13/2018 77947-IXGYWOL NAIL, 6 OR MORE 07/06/2018 96528-WOKZXFF NAIL, 6 OR MORE 2018 74162-NVVCNUZ NAIL, 6 OR MORE 12/31/2018 27624-OKAYTKT NAIL, 6 OR MORE 03/18/2019 34622-HIQDVAG NAIL, 6 OR MORE 05/27/2019 73529-QXXRBSU NAIL, 6 OR MORE 08/16/2019 36385-JLSULJX NAIL, 6 OR MORE 10/28/2019 50153-JGKIDRF NAIL, 6 OR MORE 01/17/2020 20770-LUTNKIE NAIL, 6 OR MORE 04/19/2020 32923-BENCOPA NAIL, 6 OR MORE 07/05/2020 99530-WJYUSBU NAIL, 6 OR MORE 09/21/2020 28710-NGYQDJD NAIL, 6 OR MORE 12/04/2020 09482-SPZQGUW NAIL, 6 OR MORE 02/15/2021 76158-DTPPNPW NAIL, 6 OR MORE 04/25/2021 67147-IFSJRGO NAIL, 6 OR MORE 07/05/2021 61145-UEVZVTP NAIL, 6 OR MORE 09/20/2021 90648-DSFRAUZ NAIL, 6 OR MORE 01/09/2022 53304-NFAFZNW NAIL, 6 OR MORE 04/15/2022 45356-KLFXQSG NAIL, 6 OR MORE 07/11/2022 05208-OIQHMPC NAIL, 6 OR MORE 10/03/2022 87612-UPCZEXI NAIL, 6 OR MORE 01/09/2023 47703-INFFBKH NAIL, 6 OR MORE 03/27/2023 61978-UWCIDNS NAIL, 6 OR MORE 06/23/2023 08834-LGESLUY NAIL, 6 OR MORE 09/03/2023 73626-NANRJAV NAIL, 6 OR MORE 12/01/2023 77171-YNKJART NAIL, 6 OR MORE 02/16/2024 03303-CPBVTML NAIL, 6 OR MORE 04/27/2024 08739-QHMPJAJ NAIL, 6 OR MORE 07/08/2024 33792-Uvkp Destruction, 1-07/08/2024 66261-Gpug Destruction, 1-04/27/2024 80386-Hmeq Destruction, 1-02/16/2024 94527-Lgpt Destruction, 1-14 01/12/2024 69394-Xqmp Destruction, 1-03/18/2024 17053-Tlzj Destruction, -12/01/2023 48687-Qeji Destruction, -14 07/30/2023 63190-Cane Destruction, 14 10/27/2023 65125-Izkp Destruction, 14 09/03/2023 36456-Xskv Destruction, 08-1706/23/2023 38717-Pkkl Destruction, 08-1706/04/2024 45900-Ankp Destruction, 08-1703/27/2023 85157-Rjdq Destruction, 08-1702/20/2023 00176-Schn Destruction, 08-1705/05/2023 80171-Ilkh Destruction, 08-1701/09/2023 90518-Sjav Destruction, 08-1708/22/2022 52582-Bnzt Destruction, 08-1711/18/2022 65842-Etuj Destruction, 08-1710/03/2022 46929-Rvxh Destruction, 08-1707/11/2022 81672-Mayn Destruction, 08-1704/15/2022 18555-Vqgu Destruction, 08-1705/30/2022 89555-Khxc Destruction, 08-1702/21/2022 74153-Pnbr Destruction, 08-1709/20/2021 29701-Siay Destruction, 08-1710/29/2021 44980-Saii Destruction, 08-1712/05/2021 70225-Zrhv Destruction, 08-1701/09/2022 77336-Ptlh Destruction, 08-1707/05/2021 81630-Kiak Destruction, 08-1704/25/2021 95414-Ophu Destruction, 08-1705/31/2021 26091-Ykmy Destruction, 08-1702/15/2021 30111-Uheo Destruction, 08-1703/21/2021 61806-Tqvw Destruction, 08-1712/04/2020 21052-Tqps Destruction, 08-1701/11/2021 19274-Wkkk Destruction, 08-1709/21/2020 01016-Tcta Destruction, 08-1710/30/2020 67282-Wqgb Destruction, 08-1707/05/2020 09676-Hgbt Destruction, 08-1708/14/2020 91700-Dtuk Destruction, 08-1704/19/2020 96814-Onvl Destruction, 08-1706/05/2020 52700-Wryz Destruction, 08-1701/17/2020 82677-Gsvs Destruction, 08-1703/09/2020 14620-Owbe Destruction, 08-1710/28/2019 94415-Ihpo Destruction, 08-1712/09/2019 90682-Icrp Destruction, 08-1708/16/2019 59425-Wbti Destruction, 08-1709/22/2019 10275-Dduw Destruction, 08-1705/27/2019 93263-Zbfo Destruction, 08-1706/24/2019 36218-Izsi Destruction, 08-1707/14/2019 99158-Fnqe Destruction, 08-1703/18/2019 33306-Kfex Destruction, 08-1704/19/2019 54180-Vjvv Destruction, 08-1712/31/2018 36652-Giia Destruction, 08-1702/15/2019 08196-Ugpq Destruction, 08-1709/28/2018 31845-Tkzm Destruction, 08-1711/19/2018 97883-Nuwv Destruction, 08-1708/17/2018 29219-Ukvn Destruction, 08-1705/25/2018 04154-Fcfu Destruction, 08-1707/06/2018 68339-Isoj Destruction, 08-1704/13/2018 89764-Cfaa Destruction, 08-1710/27/2017 56890-Tzvi Destruction, 08-1708/21/2017 31053-Qpmv Destruction, 08-1701/15/2018 79228- Debride <25 sq cm 12/24/2017 34765- Debride <25 sq cm 12/31/2017 80362-WLQZ SKIN LESIONS, 2 TO 4 07/11/20 79014-VHAL SKIN LESIONS, 2 TO 4 10/04/19 95874-CJHI SKIN LESIONS, 2 TO 4 01/10/20 85528-NQYH SKIN LESIONS, 2 TO 4 03/27/20 13746-PBBK SKIN LESIONS, 2 TO 4 06/23/20 54405-MYKG SKIN LESIONS, 2 TO 4 09/03/19 37704-AKQM SKIN LESIONS, 2 TO 4 12/01/19 78707-DVQH SKIN LESIONS, 2 TO 4 02/16/20 51525-FWWZ SKIN LESIONS, 2 TO 4 04/27/20 72500-FKSV SKIN LESIONS, 2 TO 4 07/08/20 95086 - TENOTOMY, OPEN, EXTENSOR 018 Next Appt Details Provider Name:Sandeep Buckley , 08/12/2024 08:30:00 AM, [address], [address], [place], [address], Insurance Providers Payer Name Payer Address Payer Phone Subscriber Number Group Number Insured Name Patient Relationship to Insured Coverage Start Date Coverage End Date Medicare National Govt [facility] [address] [place] [address] [id number] Otis Mullen Self - patient is the insured [address] [place] [employer] [address] [place] [phone] [id number] Otis Mullen Self - patient is the insured Medical (General) History Medical History History ICD Code asthma Chicken pox Hypertension Measles Mumps Reflux Surgical History Surgery Date(Month/Year) whipple procedure 01/2004 colon 03/22/2015 cataract surgery 06/2018 biopsy prostate 11/2022 lasik 06/20/23 Hospitalization History Reason Date(Month/[facility]) [facility] 03[facility]12[facility]24 [facility] Kidney Stones 03/04[facility]24-03/07/24 [facility] pneumonia, 3 day stay [place] [facility] [place]22 [facility] 10[facility]2021 [facility]- covid 07/17-08/03 Cellulitis on lt leg 09/16/2018-09/18/19 19 [facility] Dehydration 05/21/18 & 05/22/18 [facility] 01/07/18-01/10/18
--- OUTSIDE RECORDS SUMMARY | 2024-08-02 08:16 | XMS_ITS ---
Author Organization [facility] Address [address] [place] [address] Care Team Providers Care Dye House Supervisor Name Role Phone Gilles THOMPSON, Jonathan Primary Care Provider Sandeep Diallo Unavailable [phone] Allergies Allergen (clinical drug ingredient) Drug/Non Drug [...] Ordered Date Performed Result Body Sit e 61489-KWHKARN NAIL, 6 OR MORE 07/08/2024 N/A 96559-Fscq Destruction, 1-14 07/08/2024 N/A 45469-CJCZ SKIN LESIONS, 2 TO 4 07/08/2024 N/A Encounters Encounter Location Date Provider Diagnosis [facility] [place] [address] [place] [address] 07/08/2024 Sandeep Buckley Type 2 diabetes mellitus [...] Treatment Pending Test Test Name Order Date 14144-ECSNGGR NAIL, 6 OR MORE 07/08/2024 63898-Tdoo Destruction, 1-14 07/08/2024 24253-XRHY SKIN LESIONS, 2 TO 4 07/08/20 24 Next Appt Details Follow Up: prn, Reason: Provider Name:Sandeep V Ina , 08/12/2024 08:30:00 AM, [address], [place], [address], Procedure Notes * Category Sub-Category Detail Notes Wart Treatment Procedure Verruca, as desc ribed in exam, were debrided to pin-point bleeding margins with sterile 15 surgical blade, silver nitrate chemocautery applied, recomm. immune-boosting meds such as zinc, recomm. follow up with topical chemosurgical agents, Pt defers any other forms of tx - 12277 Debride Nail 6-10 Nail debridement Performance o f this nail treatment by a nonprofessional would put this patients foot and overall health at risk. Therefore, debridement to affected nail(s), as described in exam, was performed extensively to reduce/remove overall nail length, girth, thickness, subungual debris, and necrotic tissue, by manual and/or electrical means through the use of a nail nipper and/or dremel-type automatic corn grinder operator, to a more viable healthy nail plate [...] to maintain effectiveness in symptomatic relief - 36690 Keratoma Treatment Parring or Cutting o f Benign Hyperkeratotic Lesion(s) (-56) 2-4 Lesions - The Benign hyperkeratotic lesions, ( 4) in total, locations as stated and described in exam, were pared, and/or cut utilizing a sterile 15 blade, tissue nippers, and/or power dremel instrumentation - 19704, Q8 Progress Notes * Otis MULLENDOB: [birth year] (73 yo M)Acc No.[id number]:07/08/2024 Progress Note Patient:Otis HOPE Provider:?Sandeep Buckley DPM :1950???Age:73 Y???Sex:Male Adolfo e:07/08/2024 Address:[address] [place], [place] [address] Pcp:Jonathan Campoverde MD Subjective: * Chief Complaints: [...] 09/16/2018-09/18/2018[facility]- [facility] 07/17-08/03[facility] for nine days 10[place]20[place] [place] pneumonia, 3 day stay - Kidney Stones 03/04/24-03/07/24[facility] [place] 03/12/24 * Family History:?Mother: dece [...] mellitus with diabetic peripheral angiopathy without gangrene?Procedure: 46395-HGHW SKIN LESIONS, 2 TO 4 3.?Tinea unguium?Procedure: 88900-DFTDTBK NAIL, 6 OR MORE * Procedures:?Debride Nail [...] use of a nail nipper and/or dremel-type automatic corn grinder operator, to a more viable healthy nail plate [...] to maintain effectiveness in symptomatic relief - 94418.?Keratoma Treatment:?Parring or Cutting of Benign Hyperkeratotic Lesion(s)?(-56) 2-4 Lesions - The Benign hyperkeratotic lesions, ( 4) in total, locations as stated and described in exam, were pared, and/or cut utilizing a sterile 15 blade, tissue nippers, and/or power dremel instrumentation - 79098, Q8.?Wart Treatment:?Procedure?Verruca, as described in exam, were debrided to pin-point bleeding margins with sterile 15 surgical blade, silver nitrate chemocautery applied, recomm. immune-boosting meds such as zinc, recomm. follow up with topical chemosurgical agents, Pt defers any other forms of tx - 52591.? * Procedure Codes:?16295 DEBRI DE NAIL, 6 OR MORE, Modifiers: XS 59566 Wart Destruction, 1-14, Modifiers: XS 02621 TRIM SKIN LESIONS, 2 TO 4, Modifiers: XS , Q8 * Follow Up:?prn * Images: * Sign off status: Completed true * Provider:?Sandeep Buckley DPM Date:?2023 Generated for Shekhar mata/[place]elaide/eTransmitting on:?08/02/2024 08:16 AM EST History and Physical [...]
--- OUTSIDE RECORDS SUMMARY | 2024-08-02 08:16 | XMS_ITS ---
Author Organization [facility] Address [address] [place] [address] Care Team Providers Care Community Health Advocate Name Role Phone Gilles THOMPSON, Jonathan Primary Care Provider Sandeep Diallo Unavailable [phone] Allergies Allergen (clinical drug ingredient) Drug/Non Drug [...] Ordered Date Performed Result Body Sit e 97593-FYREGUF NAIL, 6 OR MORE 04/27/2024 N/A 10416-Qugk Destruction, 1-14 04/27/2024 N/A 31884-ZEKG SKIN LESIONS, 2 TO 4 04/27/2024 N/A Encounters Encounter Location Date Provider Diagnosis [facility] [address] [address] 04/27/2024 Sandeep Buckley Type 2 diabetes mellitus [...] Treatment Pending Test Test Name Order Date 84225-EPCZYHL NAIL, 6 OR MORE 04/27/2024 01222-Pncc Destruction, 1-14 04/27/2024 15211-OAKI SKIN LESIONS, 2 TO 4 04/27/20 Next Appt Details Follow Up: prn, Reason: Provider Name:Sandeep Buckley , 08/12/2024 08:30:00 AM, [address], [address], [place], [address], Procedure Notes * Category Sub-Category Detail Notes Wart Treatment Procedure Verrucae were de brided to pin-point bleeding margins with sterile 15 surgical blade, silver nitrate chemocautery applied, recomm. immune-boosting meds such as zinc, recomm. follow up with topical chemosurgical agents, Pt defers any other forms of tx - 33371 Debride Nail 6-10 Nail debridement Performance o f this nail treatment by a nonprofessional would put this patients foot and overall health at risk. Therefore, nail debridement was performed extensively to reduce/remove overall nail length, girth, thickness, subungual debris, and necrotic tissue, by manual and/or electrical means through the use of a nail nipper and/or dremel-type corn grinder, to a more viable healthy nail plate or bed tissue 6-10. Silver nitrate used for any petechial bleeding as necessary. Definitive antifungal treatment options have been reviewed and discussed with the patient. The patient chooses, no pharmaceutical tx - 15413 Keratoma Treatment Parring or Cutting o f Benign Hyperkeratotic Lesion(s) (-56) 2-4 Lesions - The Benign hyperkeratotic lesions, as described above were pared, and/or cut utilizing a sterile 15 blade, tissue nippers, and/or dremel - 74936 , Q8 Progress Notes * Otis MUNOZDOB: [birth year] (73 yo M)Acc No.[id number]:04/27/2024 Progress Notes Patient:?Sonjapolo Otis Choi Provider:?Sandeep Buckley DPM :1950???Age:73 Y???Sex:Male Adolfo e:04/27/2024 Address: [address] [facility], [place] Pcp:Jonathan Campoverde MD Subjective: * Chief Complaints: [...] & 05/22/18Cellulitis on lt leg 09/16/2018-09/18/2018[facility] 07[place] [place]- kidney stone - pneumonia, 3 day stay - Kidney Stones 03/04/24-03/07/[place] [place] * Family History:?Mother: dece [...] mellitus with diabetic peripheral angiopathy without gangrene?Procedure: 57506-YFJN SKIN LESIONS, 2 TO 4 3.?Tinea unguium?Procedure: 27690-PKSUPMP NAIL, 6 OR MORE * Procedures:?Debride Nail 6-10:?Nail debridement?Performance of this nail treatment by a nonprofessional would put this patients foot and overall health at risk. Therefore, nail debridement was performed extensively to reduce/remove overall nail length, girth, thickness, subungual debris, and necrotic tissue, by manual and/or electrical means through the use of a nail nipper and/or dremel-type corn grinder, to a more viable healthy nail plate or bed tissue 6-10. Silver nitrate used for any petechial bleeding as necessary. Definitive antifungal treatment options have been reviewed and discussed with the patient. The patient chooses, no pharmaceutical tx - 05133.?Keratoma Treatment:?Parring or Cutting of Benign Hyperkeratotic Lesion(s)?(-56) 2-4 Lesions - The Benign hyperkeratotic lesions, as described above were pared, and/or cut utilizing a sterile 15 blade, tissue nippers, and/or dremel - 85289 , Q8.?Wart Treatment:?Procedure?Verrucae were debrided to pin-point bleeding margins with sterile 15 surgical blade, silver nitrate chemocautery applied, recomm. immune-boosting meds such as zinc, recomm. follow up with topical chemosurgical agents, Pt defers any other forms of tx - 50929.? * Procedure Codes:?56662 DEBRI DE NAIL, 6 OR MORE, Modifiers: XS 29663 Wart Destruction, 1-14, Modifiers: XS 57238 TRIM SKIN LESIONS, 2 TO 4, Modifiers: [...]
--- NOTE | 2024-08-02 08:30 | MHC.PC.OV ---
Vital Signs 08/02/24 08:31 Height 5 ft 10 in Weight 246 lb 6 oz BMI 35.3 BP 110/74 Blood Pressure Location Lt brachial Position Sitting Pulse 59 Pulse Source Pulse Oximeter Pulse Oximetry (%) 97 Oxygen Delivery Method Room Air Intake Visit Reasons: 3mth f/u Intake Note: Patient is here to follow up on DM, CHF, COPD, HTN. Reference Library Assistant Required: No Archives Director: Not Required per policy Accompanied by: Self / Same As Patient Allergies nicotine Allergy (Intermediate, Verified 08/02/24 08:30) Rash fish derived [FISH] Allergy (Unknown, Verified 08/02/24 08:30) ANGIOEDEMA tamsulosin [Flomax] Adverse Reaction (Intermediate, Verified 08/02/24 08:30) nightmares Medication List - Last Reconciled 08/02/24 by Jonathan Campoverde MD albuterol sulfate mg inhalation Q6H PRN albuterol sulfate 90 mcg/actuation inhalation blood sugar diagnostic (FreeStyle Lite Strips) daily blood-glucose meter (FreeStyle [place] Lite kit) As directed [custom heat molded multidensity innersoles wear 3 pairs of custom heat molded multidensity innersoles wear] docusate sodium (Stool Softener) 100 mg PO DAILY [extra depth orthopedic shoes with 3 pairs of custom heat molded multidensity innersoles wear] fluticasone propionate 50 mcg/actuation 1 spray intranasal DAILY zmngegzmuhn-sfhidvetl-quqvspig 100-62.5-25 mcg (Trelegy Ellipta) 1 ea inhalation DAILY furosemide 40 mg PO QAM glimepiride 1 mg PO DAILY hydrocortisone 2.5% appl topical lancets (FreeStyle Lancets) test daily metformin 1,000 mg PO BID metoprolol succinate ER 50 mg PO DAILY omeprazole 40 mg PO DAILY polyethylene glycol 3350 (Miralax) 17 grams PO DAILY saw palmetto 450 mg PO BID solifenacin 10 mg PO DAILY triamcinolone acetonide 0.1% 1 appl topical BID-TID vitamins A,C,L-kttv-vfpcax 2,148 mcg-113 mg-45 mg-17.4mg (PreserVision AREDS) 1 tab PO BID warfarin 7.5 mg See Protocol PO DAILY MDD 1.5 tablets daily Tobacco use date assessed: 08/02/24 Fall risk assessment: No Falls in past year Last assessed Fall Risk: 12/30/24 Dental Screening Dental Screen Date: 10/24/23 HPI 3mth f/u HPI Details DM; stable; compliant [facility] Medical History Severe obesity (BMI 35.0-35.9 with comorbidity) Screening for diabetes mellitus Obesity Hypertension Cardiomyopathy COVID-19 Asthma Surgical History History of surgery History of colonoscopy History of transurethral resection of prostate History of cystoscopy Status post orchiopexy History of eye surgery History of tonsillectomy Family History Father Heart disease Mother Colon cancer Brother No problems noted. Brother No problems noted. Sister No problems noted. Social History Housing: House Alcohol intake: current Alcohol intake frequency: holidays/special occasions only Patient Tobacco Use Status: Former Tobacco user Tobacco use type: Cigarette Years Smoked: 50 e-Cigarette/Vaping Use: Never Used Second Hand Smoke Exposure: Yes service: No Current occupational status: employed and retired Current occupation: retired Cognitive needs: No Hearing needs: No Vision needs: Yes Questionnaire Thrive Questionnaire Date Thrive assessed: 10/24/23 CAYDEN-7 AMB Questionnaire CAYDEN-7 Date CAYDEN - 7 assessed: 10/24/23 Source: Developed by Drs. Arnoldo Sarah, Julita Uriostegui, Vega Miller and colleagues, with an educational marisa from [employer]. Review of Systems Const Denies chills, Denies headache(s) and Denies weight loss ENT Denies headache(s) Card Denies chest pain, Denies syncope, Denies irregular heart rhythm and Denies dyspnea Resp Denies chest congestion, Denies cough and Denies dyspnea GI Denies abdominal pain, Denies change in stool character, Denies nausea and Denies vomiting Musc Denies deformity and Denies joint swelling Neuro Denies syncope and Denies headache(s) Physical exam (Primary Care) Vital Signs: Last Vital Signs Pulse 59 08/02/24 08:31 BP 110/74 12/30/24 08:31 Pulse Ox 97 08/02/24 08:31 Oxygen Delivery Method Room Air 08/02/24 08:31 BMI result Body Mass Index 35.3 Tobacco/Smoking Status: Tobacco use Status Tobacco use date assessed 08/02/24 08/02/24 08:34 Patient Tobacco Use Status Former Tobacco user 08/02/24 08:34 Tobacco use type Cigarette 08/02/24 08:34 e-Cigarette/Vaping Use Never Used 08/02/24 08:34 Thrive Assessment: Date of Thrive Assessment Date Thrive assessed 10/24/23 08/02/24 08:34 Const General: cooperative, comfortable, no acute distress and alert Neck Neck: Yes no lymphadenopathy Thyroid: Thyroid normal Resp Effort & Inspection: normal respiratory effort Auscultation: clear to auscultation bilaterally Percussion: percussion normal Cardio Jugular venous distension: no JVD Palpation: normal PMI Rate: regular rate Rhythm: regular rhythm Heart sounds: S1 normal heart sound present and S2 normal heart sound present GI Inspection: Yes normal to inspection Palpation (GI): No hepatosplenomegaly present Skin General skin exam: no rashes or lesions noted Extrem General: Yes no clubbing, cyanosis or edema Coding Level of Care Code Est Pt Level 3 (63647) Diagnoses Diabetes type 2, controlled E11.9 Assessment & Plan Assessment & Plan (1) Diabetes type 2, controlled: Code(s): E11.9 - Type 2 diabetes mellitus without complications Category: Medical Plan: stable; same rx Orders: Orders Hemoglobin A1c Today R73.9 - Hyperglycemia, unspecified Lipid Panel Today Z13.220 - Encounter for screening for lipoid disorders Glucose Fasting Today R73.9 - Hyperglycemia, unspecified
[2024-08-02 08:31] VITALS: BP 110/74; PULSE 59; O2SAT 97; BMI 35.3
== END 2024-08-02 08:54 | disposition home or self-care (01) ==
PROVIDERS: PCP Internal Medicine; Visit Provider Internal Medicine
DX: E11.9 Type 2 diabetes mellitus without complications (principal)

== ENCOUNTER → 2024-08-02 08:13 | Outpatient (BNVA) | payer MEDICARE, OTHER, SELFPAY | PROVIDERS: PCP Internal Medicine; Visit Provider Internal Medicine | DX: E11.9 Type 2 diabetes mellitus without complications (principal) | CPT/HCPCS: 99212 ==

== ENCOUNTER 2024-08-06 08:50 | Outpatient (AMB) | payer MEDICARE, OTHER, SELFPAY ==
--- NOTE | 2024-08-06 09:04 | MHC.OFFVISCO ---
Intake Intake Visit Reasons: Anticoagulation Allergies nicotine Allergy (Intermediate, Verified 08/06/24 08:57) Rash fish derived [FISH] Allergy (Unknown, Verified 08/06/24 08:57) ANGIOEDEMA tamsulosin [Flomax] Adverse Reaction (Intermediate, Verified 08/06/24 08:57) nightmares Medication List - Last Reconciled 08/06/24 by Marie Shaver, RN albuterol sulfate mg inhalation Q6H PRN albuterol sulfate 90 mcg/actuation inhalation blood sugar diagnostic (FreeStyle Lite Strips) daily blood-glucose meter (FreeStyle [place] Lite kit) As directed [custom heat molded multidensity innersoles wear 3 pairs of custom heat molded multidensity innersoles wear] docusate sodium (Stool Softener) 100 mg PO DAILY [extra depth orthopedic shoes with 3 pairs of custom heat molded multidensity innersoles wear] fluticasone propionate 50 mcg/actuation 1 spray intranasal DAILY tncqypzaymn-vmfllwepz-qwfmyczs 100-62.5-25 mcg (Trelegy Ellipta) 1 ea inhalation DAILY furosemide 40 mg PO QAM glimepiride 1 mg PO DAILY hydrocortisone 2.5% appl topical lancets (FreeStyle Lancets) test daily metformin 1,000 mg PO BID metoprolol succinate ER 50 mg PO DAILY omeprazole 40 mg PO DAILY polyethylene glycol 3350 (Miralax) 17 grams PO DAILY saw palmetto 450 mg PO BID solifenacin 10 mg PO DAILY triamcinolone acetonide 0.1% 1 appl topical BID-TID vitamins A,C,E-nlex-uwqiek 2,148 mcg-113 mg-45 mg-17.4mg (PreserVision AREDS) 1 tab PO BID warfarin 7.5 mg See Protocol PO DAILY MDD 1.5 tablets daily Nursing Note INR: 3.3?out of therapeutic range of 2-3 Medications and supplements reviewed Patient status: well Medications or supplements: no change Diet: as usual Denies any signs and symptoms of bleeding or clotting or unusual bruising Bleeding, bruising, clotting discussed Nutritional guidance given: to have a serving of greens today Dose: decrease today's dose to 7.5mg (11.25mg) then usual dose of 7.5mg X 4 days and 11.25mg X 3 days (Mon, Wed & Fri) F/U INR Date : 2 weeks?? Patient verbalizing understanding of instructions given. Anti-Coag Initial Assessment Social Hx Patient Tobacco Use Status: Former Tobacco user Tobacco use type: Cigarette alcohol intake: current Alcohol intake frequency: holidays/special occasions only Cardiovascular Hx: HTN, CHF and Cardiomyopathy Lung Disease HX: Asthma, COPD and DVT/PE Endocrine Hx: Diabetes Blood Disorder Hx: Other GI Hx: Other Cancer HX: No Coding Level of Care Code Est Patient Level 1 Diagnoses Current use of anticoagulant therapy Z79.01 Results AMB INR Fingerstick AMB INR Fingerstick 3.3 Last Edit by Marie Shaver RN on 08/06/24 09:10 interface delay Assessment & Plan Assessment & Plan (1) Current use of anticoagulant therapy: 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
[2024-08-06 09:11] LABS: ~PT, ~INR - Anti Coag Clinic 3.3 (0.9-1.1)
== END 2024-08-06 09:15 | disposition home or self-care (01) ==
LOC: HO.ACS 08:50
PROVIDERS: PCP Internal Medicine; Visit Provider Internal Medicine
DX: Z79.01 Long term (current) use of anticoagulants (principal)

== ENCOUNTER → 2024-08-06 08:50 | Outpatient (BNVA) | payer MEDICARE, OTHER, SELFPAY | PROVIDERS: PCP Internal Medicine; Visit Provider Internal Medicine | DX: I26.99 Other pulmonary embolism without acute cor pulmonale (principal); Z79.01 Long term (current) use of anticoagulants; Z51.81 Encounter for therapeutic drug level monitoring | CPT/HCPCS: 85610; 99211 ==

== ENCOUNTER 2024-08-20 08:39 | Outpatient (AMB) | payer MEDICARE, OTHER, SELFPAY ==
[2024-08-20 09:03] LABS: Prothrombin Time Whole Bld POC 32.3 sec (11.1-13.5); ~PT, ~INR - Anti Coag Clinic 2.7 (0.9-1.1)
--- NOTE | 2024-08-20 09:16 | MHC.OFFVISCO ---
Intake Intake Visit Reasons: Anticoagulation Allergies nicotine Allergy (Intermediate, Verified 08/20/24 08:57) Rash fish derived [FISH] Allergy (Unknown, Verified 08/20/24 08:57) ANGIOEDEMA tamsulosin [Flomax] Adverse Reaction (Intermediate, Verified 08/20/24 08:57) nightmares Medication List - Last Reconciled 08/20/24 by Yakelin Jenkins RN albuterol sulfate mg inhalation Q6H PRN albuterol sulfate 90 mcg/actuation inhalation blood sugar diagnostic (FreeStyle Lite Strips) daily blood-glucose meter (FreeStyle [place] Lite kit) As directed [custom heat molded multidensity innersoles wear 3 pairs of custom heat molded multidensity innersoles wear] docusate sodium (Stool Softener) 100 mg PO DAILY [extra depth orthopedic shoes with 3 pairs of custom heat molded multidensity innersoles wear] fluticasone propionate 50 mcg/actuation 1 spray intranasal DAILY cqqvoqyjvpi-qbkqjhlzd-myrruxqu 100-62.5-25 mcg (Trelegy Ellipta) 1 ea inhalation DAILY furosemide 40 mg PO QAM glimepiride 1 mg PO DAILY hydrocortisone 2.5% appl topical lancets (FreeStyle Lancets) test daily metformin 1,000 mg PO BID metoprolol succinate ER 50 mg PO DAILY omeprazole 40 mg PO DAILY polyethylene glycol 3350 (Miralax) 17 grams PO DAILY saw palmetto 450 mg PO BID solifenacin 10 mg PO DAILY triamcinolone acetonide 0.1% 1 appl topical BID-TID vitamins A,C,O-vthz-aovyxw 2,148 mcg-113 mg-45 mg-17.4mg (PreserVision AREDS) 1 tab PO BID warfarin 7.5 mg See Protocol PO DAILY MDD 1.5 tablets daily Nursing Note INR: 2.7 in therapeutic range Medications and supplements reviewed Pt recovering from URI and is on Zpack and tappering dose of prednisone he started 08/18/24 Wed this week- both can raise the INR - warfarin dose decrased last night to 3.75mg He is feeling much better Denies any signs and symptoms of bleeding or bruising or clotting. Bleeding, bruising, clotting discussed Nutritional guidance given- resume usual diet - make sure to eat your usual greens next week Dose: decreased dose for next week 11.25mg x 2 days instead of 3days/ 7.5mg x 5 days F/U INR: 08/27/24Friday Patient verbalizes understanding of instructions given with read back Anti-Coag Initial Assessment Social Hx Patient Tobacco Use Status: Former Tobacco user Tobacco use type: Cigarette alcohol intake: current Alcohol intake frequency: holidays/special occasions only Cardiovascular Hx: HTN, CHF and Cardiomyopathy Lung Disease HX: Asthma, COPD and DVT/PE Endocrine Hx: Diabetes Blood Disorder Hx: Other GI Hx: Other Cancer HX: No Coding Level of Care Code Est Patient Level 1 Diagnoses Current use of anticoagulant therapy Z79.01 Results AMB INR Fingerstick AMB INR Fingerstick 2.7 Last Edit by Yakelin Jenkins RN on 08/20/24 09:03 manual entry Assessment & Plan Assessment & Plan (1) Current use of anticoagulant therapy: Code(s): Z79.01 - prison (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
== END 2024-08-20 09:21 | disposition home or self-care (01) ==
LOC: HO.ACS 08:39
PROVIDERS: PCP Internal Medicine; Visit Provider Internal Medicine
DX: Z79.01 Long term (current) use of anticoagulants (principal)

== ENCOUNTER → 2024-08-20 08:39 | Outpatient (BNVA) | payer MEDICARE, OTHER, SELFPAY | PROVIDERS: PCP Internal Medicine; Visit Provider Internal Medicine | DX: I26.99 Other pulmonary embolism without acute cor pulmonale (principal); Z79.01 Long term (current) use of anticoagulants; Z51.81 Encounter for therapeutic drug level monitoring | CPT/HCPCS: 85610; 99211 ==

== ENCOUNTER → 2024-09-10 08:38 | Outpatient (AMB) | payer MEDICARE, OTHER, SELFPAY ==
[2024-09-10 08:59] LABS: Prothrombin Time Whole Bld POC 39.5 sec (11.1-13.5); ~PT, ~INR - Anti Coag Clinic 3.3 (0.9-1.1)
== END | disposition home or self-care (01) ==
PROVIDERS: PCP Internal Medicine; Visit Provider Internal Medicine

== ENCOUNTER → 2024-09-10 08:38 | Outpatient (BNVA) | payer MEDICARE, OTHER, SELFPAY | PROVIDERS: PCP Internal Medicine; Visit Provider Internal Medicine | DX: I26.99 Other pulmonary embolism without acute cor pulmonale (principal); Z79.01 Long term (current) use of anticoagulants; Z51.81 Encounter for therapeutic drug level monitoring | CPT/HCPCS: 85610; 99211 ==

== ENCOUNTER 2024-09-24 08:47 | Outpatient (AMB) | payer MEDICARE, OTHER, SELFPAY ==
[2024-09-24 08:59] LABS: Prothrombin Time Whole Bld POC 25.1 sec (11.1-13.5); ~PT, ~INR - Anti Coag Clinic 2.1 (0.9-1.1)
--- NOTE | 2024-09-24 09:02 | MHC.OFFVISCO ---
Intake Intake Visit Reasons: Anticoagulation Allergies nicotine Allergy (Intermediate, Verified 09/24/24 08:53) Rash fish derived [FISH] Allergy (Unknown, Verified 09/24/24 08:53) ANGIOEDEMA tamsulosin [Flomax] Adverse Reaction (Intermediate, Verified 09/24/24 08:53) nightmares Medication List - Last Reconciled 09/24/24 by Marie Shaver, RN albuterol sulfate mg inhalation Q6H PRN albuterol sulfate 90 mcg/actuation inhalation blood sugar diagnostic (FreeStyle Lite Strips) daily blood-glucose meter (FreeStyle [place] Lite kit) As directed [custom heat molded multidensity innersoles wear 3 pairs of custom heat molded multidensity innersoles wear] docusate sodium (Stool Softener) 100 mg PO DAILY [extra depth orthopedic shoes with 3 pairs of custom heat molded multidensity innersoles wear] fluticasone propionate 50 mcg/actuation 1 spray intranasal DAILY iqkbsnzuxgp-guopvkhdr-xumvcjeh 100-62.5-25 mcg (Trelegy Ellipta) 1 ea inhalation DAILY furosemide 40 mg PO QAM glimepiride 1 mg PO DAILY hydrocortisone 2.5% appl topical lancets (FreeStyle Lancets) test daily metformin 1,000 mg PO BID metoprolol succinate ER 50 mg PO DAILY omeprazole 40 mg PO DAILY polyethylene glycol 3350 (Miralax) 17 grams PO DAILY saw palmetto 450 mg PO BID solifenacin 10 mg PO DAILY triamcinolone acetonide 0.1% 1 appl topical BID-TID vitamins A,C,N-tkwm-ajpexr 2,148 mcg-113 mg-45 mg-17.4mg (PreserVision AREDS) 1 tab PO BID warfarin 7.5 mg See Protocol PO DAILY MDD 1.5 tablets daily Nursing Note INR: 2.1 in therapeutic range of 2-3 Medications and supplements reviewed No changes in health, diet, medications, or supplements, Denies any signs and symptoms of bleeding or bruising or clotting. Bleeding, bruising, clotting discussed Nutritional guidance given Dose: 7.5mg X 4 days and 11.25mg X 3 days (Mon, Wed & Fri) F/U INR: 2 weeks Patient verbalizes understanding of instructions given Anti-Coag Initial Assessment Social Hx Patient Tobacco Use Status: Former Tobacco user Tobacco use type: Cigarette alcohol intake: current Alcohol intake frequency: holidays/special occasions only Cardiovascular Hx: HTN, CHF and Cardiomyopathy Lung Disease HX: Asthma, COPD and DVT/PE Endocrine Hx: Diabetes Blood Disorder Hx: Other GI Hx: Other Cancer HX: No Questionnaires HAS-BLED Does the patient had uncontrolled Hypertension?: No Does the patient have renal disease?: No Does the patient have liver disease?: No Does the patient have a history of stroke?: No Has the patient had major bleeding or predisposition to bleeding?: No Does the patient have labile INRs?: No Is the patient over 65 years of age?: Yes Is the patient on medications that gives them a predisposition to bleeding?: Yes Does the patient use alcohol?: Yes HAS-BLED Score: 3 CHADSVASC Age: 66-74 Gender: Male Does the patient have a history of CHF?: Yes Does the patient have a history of Hypertension?: Yes Does the patient have a history of Stroke/TIA/Thromboembolism?: Yes Does the patient have a history of Vascular Disease (prior AK, PAD or aortic plaque)?: No Does the patient have a history of Diabetes?: Yes CHADS VACS Score: 6 Darwin Prediction Score Rsk VTE Active Cancer: Yes Previous VTE, excluding superficial vein thrombosis: Yes Reduced mobility: No Already known Thrombophilic Condition: No With-in last month Trauma and/or Surgery: No Elderly 70 year or older: Yes Heart and/or Respiratory Failure: Yes Acute Myocardial infarction and/or Ischemic Stroke: No Acute Infection and/or Rheumatologic Disorder: No Obesity (BMI 30 or greater): Yes Ongoing Hormonal Treatment: No Score: 9 Darwin Score less than 4; Low Risk of VTE Darwin Score 4 or greater; High Risk of VTE Coding Level of Care Code Est Patient Level 1 Diagnoses Current use of anticoagulant therapy Z79.01 Results AMB INR Fingerstick AMB INR Fingerstick 2.1 Last Edit by Marie Shaver RN on 09/24/24 09:02 interface delay Assessment & Plan Assessment & Plan (1) Current use of anticoagulant therapy: Code(s): Z79.01 - [facility] (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
--- OUTSIDE RECORDS SUMMARY | 2024-09-24 09:08 | XMS_ITS ---
Author Organization [facility] Address [address] [place] [address] Care Team Providers Care Real Estate Photographer Name Role Phone Gilles THOMPSON, Jonathan Primary Care Provider Sandeep Diallo Unavailable [phone] Allergies Allergen (clinical drug ingredient) Drug/Non Drug Allergy documented on EMR Reaction Allergy Type Onset Date Status povidone-iodine Betadine anaphylaxis- any Fish Drug Allergy Active tamsulosin Flomax nightmares Drug Allergy Activ e REASON FOR VISIT Wart(s), Toe Irritation Medications Medication SIG (Take, Route, Frequency, Duration) Notes Start Date End Date Status amLODIPine Besylate 10 MG TAKE 1 TABLET BY MOUTH EVERY DAY Oral for 15 Not-Taking Aspir-81 Not-Taking Valsartan Not-Taking oxyBUTYnin Not-Takin g Trelegy Ellipta Acti ve Omeprazole Active PreserVision AREDS 2 Active Solifenacin Succinate 10 MG 1 tablet Once a day Active Extra Depth Orthopedic Shoes, (1) Pair With (3) Pair Custom Heat Molded Multidensity Innersoles Dx: 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 No Points 0 Interpretation Negative Tobacco use other than smoking: Question Answer Notes Are you an other tobacco user? No Tobacco Control (Standard) Question Answer Notes Tobacco use: Nonsmoker Additional Findings: Tobacco non-user Current no nsmoker Vital Signs Height 5ft 10in in 08/12/2024 Weight 237 lbs 08/12/2024 BMI 34 kg/m2 08/12/2024 Blood pressure systolic 120 mm Hg 08/12/19 25 Blood pressure diastolic 70 mm Hg 025 Procedures Procedure Date Ordered Date Performed Result Body Sit e 04273-Zkjd Destruction, 1-14 08/12/2024 N/A Encounters Encounter Location Date Provider Diagnosis [facility] [place] [address] [place] [id number] 08/12/2024 Sandeep Buckley Right foot pain M79.671 ; Plantar wart B07.0 ; Left foot pain M79.672 ; Other hammer toe(s) (acquired), right foot M20.41 and Other hammer toe(s) (acquired), left foot M20.42 Assessments Encounter Date Diagnosis (ICD Code) Assessment Notes Treatment Notes Treatment Clinical Notes Section Notes 08/12/2024 Right foot pain (ICD-10 - M79.671) 08/12/2024 Plantar wart (ICD-10 - B07.0) 08/12/2024 Left foot pain (ICD-10 - M79.672) 08/12/2024 Other hammer toe(s) (acquired), right foot (ICD-10 - M20.41) Patient Educated with: DIABETIC FOOT CARE INSTRUCTIONS.p df (DIABETIC FOOT CARE INSTRUCTIONS.p df) 08/12/2024 Other hammer toe(s) (acquired), left foot (ICD-10 - M20.42) Plan Of Treatment Medication Medication Name Sig Start Date Stop Date Notes Extra Depth Orthopedic Shoes , (1) Pair With (3) Pair Custom Heat Molded Multidensity Innersoles Dx: 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), Hammertoe Foot Deformity(M20.41,M20.42), Preulcerative Skin Lesion(s)(L85.1) Wear Daily for 365 days Treatment Notes Assessment Notes Other hammer toe(s) (acquired), right fo ot Patient Educated with: DIABETIC FOOT CARE INSTRUCTIONS.pdf (DIABETIC FOOT CARE INSTRUCTIONS.pdf) Pending Test Test Name Order Date [id number] Destruction, 1-14 08/12/2024 Next Appt Details Follow Up: prn, Reason: Provider Name:Sandeep V Ina , 10/21/2024 08:30:00 AM, [address] , [address] [facility], [place], [address], Provider Name:Sandeep Buckley , 11/25/2024 08:30:00 AM, [address] , [address] [facility], [place], [address], Procedure Notes * Category Sub-Category Detail Notes Wart Treatment Procedure Verruca, as desc ribed in exam, were debrided to pin- point bleeding margins with sterile 15 surgical blade, silver nitrate chemocautery applied, recomm. immune-boosting meds such as zinc, recomm. follow up with topical chemosurgical agents, Pt defers any other forms of tx - 29186 Progress Notes * Otis MULLENDOB: [birth year] (73 yo M)Acc No.[id number]:08/12/2024 Progress Notes Patient:?SONJAPOLO Otis Choi Provider:?Sandeep Buckley DPM :1950???Age:73 Y???Sex:Male Adolfo e:08/12/2024 Address:[address] [place] [id number] Pcp:Jonathan Campoverde MD Subjective: * Chief Complaints: * ???Wart(s)Toe Irritation * HPI: ???Skin problems:?Pt States PCP Visit: ?DATE?08/02/2024 ???Toe pain:?Location:?B/L feet.?Duration:?several years.?Course:?worse.?Aggravated by:?shoes, any pressure.?Treatments:?change in shoes.? * ROS:?General/Constitutional:?Nausea?denies.?Vomiting?denies.?Hunger Thirst?denies.?Loss appetite?denies.?Chills?denies.?Fatigue?denies.?Fever?denies.?Night Sweats?denies.?Unexplained weight loss?denies.?Unexplained weight gain?denies.?HEENTM:?Dentures?admits.?Dizziness?denies.?Glasses/contacts?admits.?Retinopathy?den ies.?Blurred/double vision?denies.?TMJ?denies.?Discharge/drainage?denies.?Implants?denies.?Sore throat?denies.?Dental implants?denies.?Hard of hearing ?admits.?Difficulty chewing/swallowing/speaking?denies.?Nose bleeds?denies.?Sore mouth?denies.?Respiratory:?On O xygen?denies.?Pneumonia/pleurisy?denies.?Bronchitis?denies.?Emphysema?denies.?Co ughing?admits.?Cough blood?denies.?Shortness of breath?admits.?Wheezing?admits.?Cardiovascular:?Pacemaker?denies.?MVP?denies.?WPW?denies.?CHF?denies.?Heart attack?denies.?Septal defect?denies.?Rapid beat?denies.?Chest pain ?denies.?Atrial Fib.?denies.?Murmur/Palpitations?denies.?Gastrointestinal:?Hemorrhoids?denies.?Stomach/Abdominal pain?denies.?Dark blood stool?denies.?Irritable bowel ?denies.?Constipation?denies.?Diarrhea?denies.?Hematology:?Swelling?denies.?Clots?denies.?Varicose Veins?denies.?Bruising?admits, on aspirin.?Bleeding problem?admits, on anticoagulants.?Genitourinary:?Blood urine?denies.?Frequent/Painfu/urination/bladder control?denies.?Kidney stones?denies.?Infection (UTI)?denies.?Nephropathy?denies.?sex trans dis (STD)?denies.?Prostate?denies.?Musculoskeletal:?Hammertoes?admits.?Bunions?admits.?Back Pain?denies.?Muscle Cramps/ Resting?denies.?Muscle cramps / walking?denies.?Generalized aches and pains?denies.?Weakness?denies.?Integ.:?Her?denies.?Scars?denies.?Corns/calluses?admits.?Ingrown nails?admits.?Painful nails?admits.?Open Sores?denies.?Rashes?denies.?Neurologic:?Difficulty sleeping?denies.?Brain disorder?denies.?Numbness?denies.?Balance t rouble?denies.?Confusion?denies.?Fainting/blackouts?denies.?Tingling?denies.?Luis M mors?denies.? * Medical History:? * Surgical History:?whipple pr ocedure 01/2004colon 03/22/2015cataract surgery 06/2018biopsy prostate 11/2022lasik 06/20/23 * Hospitalization/Major Diagno stic Procedure:?[facility] 01/07/18-01/10/18[facility] Dehydration 05/21/18 & 05/22/18Cellulitis on lt leg 09/16/2018-09/18/2018[facility]- covid 07/17-08/03[facility] [place] admitted for nine days 10/2021[facility] [place] [place]- kidney stone - pneumonia, 3 day stay - Kidney Stones 03/04/24-03/07/24[facility] - Infection 03/12/24 * Family History:?Mother: dece ased, diagnosed with Other malignant neoplasm of unspecified site, Diabetic - NIDDM.?Father: .? * Social History:?Tobacco Use:?Tobacco use other than smoking?Are you an other tobacco user??No ?Tobacco Control (Standard)?Tobacco use:?Nonsmoker ?Additional Findings: Tobacco non-user?Current nonsmoker ???Drugs/Alcohol:?Drugs?Have you used drugs other than those [...] 10in, Wt:237 , BMI:34, Shoe size: 10E, BP:120/70mm Hg, BS: 105, Ht-cm: 177.8 cm, Wt-k.5 kg. * ???Past Orders: ???Lab:HEMOGLOBIN A1C (GLYCO HEMOGLOBIN) (Order Date - 07/29/2024) (Collection Date & Time - 07/29/2024 08:29 AM) ? Value Reference Range ?HEMOGLOBIN A1C % (HH) 6.3 * Examination: ???Ophthalmology Referral: ?DIABETES EYE EXAM?Dermatologic: ?SKIN FINDINGS:?Skin exam reveals Keratotic lesion(s) located at, Medial plantar, IPJ, TA, Medial plantar, IPJ, T5, SUB MTH (s), 1, B/L .?VERRUCA:?STILL, reveals Multiple ( 10), multi-loculated , mosaic, round, raised, flat-topped, petechial bleeding papulae(s), with cauliflower appearance and interrruption of skin lines, with pain to lateral compression, and size estimated at 3-4mm diameter, plantar Forefoot, Midfoot, Heel, B/L.?Vascular: ?DP PULSES (B):? 0/4, LEFT, 1/4, RIGHT.?PT PULSES (B):? 0/4, B/L.?CAPILLARY FILL TIME:? delayed, all digits, B/L.?TROPHIC CONDITION-TEXTURE/ELASTICITY/TURGOR/HAIR GROWTH (B):? decreased, B/L.?TEMPERTURE GRADIENT (C):? decreased, cool to cool, proximal to distal, B/L.?PIGMENTATION:? rubrous, B/L.?EDEMA (C):? 2/4, non-pitting, without aching pain, B/L, Leg(s), Ankle(s), Feet.?CLAUDICATION (C):?denies, B/L.?REST PAIN:?denies, B/L.?Nails: ?NAILS are:?Elongated, overgrown, dystrophic, lytic, greater than 3mm thick, discolored and friable with crumbly malodorous subungual debris, with pain on palpation , T1, T2, T3, T4, T6, T7, T8, T9.?Orthopedic: ?MUSCLE STRENGTH:?5/5 all groups in a symmetrical fashion , B/L.?DIGITAL DEFORMITIES:?Digital contracture, PIPJ, 2-5 B/L, incompl-reducible with WB, or to push-up test, no over, nor underlapping,?with evidence of shoe producing skin irritation.?FOOTWEAR:?worn, OT were inspected and noted to be severely worn , in poor condition not giving proper support at the present time, shoe gear properties exacerbate patient's foot/toe deformity .?Neurological: ?SENSORY:?Neurological exam reveals intact sensorium, pain sensation normal, vibration sensation intact, pinprick sensation is normal in the lower extremities, 5.07 monofilament test performed at plantar aspects of 5 varied sites per foot shows sensation, normal, B/L, Pt denies, anesthesia, burning, paresthesia, tingling, B/L.?General Examination: ?GENERAL APPEARANCE:?Reveals a pleasant, alert, well nourished, well- developed, well hydrated individual, who demonstrates proper attention to hygiene/body habitus, and is in no acute distress, Pt serves as own historian for office visit today.?ORIENTED:?person, place, and time.?FOOT EXAM:?Footwear Evaluation? Assessment: * Assessment: 1.?Plantar wart - B07.0 (Gretchen sharif)???Specify :B/L???2.?Right foot pain - M79.671???3.?Left foot pain - M79.672???4.?Other hammer toe(s) (acquired), right foot - M20.41???Specify :Chronic problem, Worse (4),Rx Management (4)???5.?Other hammer toe(s) (acquired), left foot - M20.42???Specify :Chronic problem, Worse (4),Rx Management (4)??? Plan: * Treatment: 2.?Other hammer toe(s) (acqu ired), right foot? 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 Notes: Patient Educated with: DIABETIC FOOT CARE INSTRUCTIONS.pdf (DIABETIC FOOT CARE INSTRUCTIONS.pdf)?? * Procedures:?Wart Treatment:?Procedure?Verruca, as described in exam, were debrided to pin-point bleeding margins with sterile 15 surgical blade, silver nitrate chemocautery applied, recomm. immune-boosting meds such as zinc, recomm. follow up with topical chemosurgical agents, Pt defers any other forms of tx - 62811.? * Procedure Codes:?56112 Wart Destruction, 1-14 * Preventive Medicine:? ??Counseling:?Discussion:?-14: Office or other outpatient visit for the evaluation and management of an established patient, which required a medically appropriate history and/or examination and MODERATE level of DECISION MAKING for: 1 OR MORE CHRONIC PROBLEM(S) THATS WORSENING, 2 STABLE CHRONIC PROBLEMS, A NEWLY DIAGNOSED PROBLEM WITH UNCERTAIN PROGNOSIS, AN ACUTE COMPLICATED INJURY WITH MULTIPLE TREATMENT OPTIONS, OR AN ACUTE PROBLEM WITH ACCOMPANYING SYSTEMIC SYMPTOMS, THAT POSE(S) A MODERATE RISK OF MORBIDITY. THIS CONDITION MAY ALSO INCLUDE RX DRUG MANAGEMENT, OR A DECISON FOR MINOR SURGERY. The visit on the day of the encounter encompassed interpreting the data and educating the patient as to the nature of their condition, treatment options available according to their individual PMH, meds, allergies, and overall health/living conditions, as well as any potential risks or complications that may occur from a failure to adhere to, and participate in, the recommended course of therapy. The discussion included a complete verbal, and/or written explanation of the examination results, any x-rays taken, the proposed diagnosis, and outline of the treatment plan. A schedule for future care needs was also explained. The patient verbalized an understanding of the instructions at this time and agreed to be an active participant in their treatment. If the patient should think of any questions or concerns after the visit, I have encouraged the patient to call the office.?Digital Surgery:?Digital surgery was discussed with the patient, We elected to try conservative treatment at the present time, due to the patients medical history and increased asssociated post-operative risks.?Digital Treatment:?HT- I explained to the patient the possible etiologies of Hammertoes, including genetics/foot type/shoegear/activity level/exercise routine and the risks/benefits of all the different treatment options for their pain including: No treatment at all, Rest, Ice, New/supportive/wider/deeper Shoegear, Digital Padding/Strapping/Taping/Bracing/Gel protective sleeves, Foot/Ankle AFO Bracing, Stretching exercises, Deep Tissue Massage, Arch support/shoe inserts with splay metatarsal padding, and Custom orthoses. I insisted that any digital devices be removed daily and not worn overnight for safety. The patient is to carefully examine the toes daily for any skin irritation while using any splinting or padding device. The advantages and disadvantages of each option were discussed and the patients questions re: shoegear, padding, custom vs prefabricated inserts, activity level, and consistency in home treatment regimens for optimal success were answered to their verbally confirmed satisfaction.?Shoe Gear Counseling:?SHOE Rx - The patient was counseled in great detail on their muscoloskeletal foot and toe deformities which coincided with the dermatological presentations visualized on exam. We discussed how their deformities put the integrity of their feet at risk for potential pedal complications which makes the accomidative diabetic shoes and cutomizable inserts medically necessary. We discussed the different shoe and insert treatment types and options, as well as the important advantages for adhering to regularly wearing these accomidative devices daily. The patient was made aware of the fact that a failure to abide by these recommedations may be deleterious to their foot health as they are able to prevent many pedal complications such as skin irritation, skin ulceration, infection, and even loss of toe/foot/leg/or life. Time was also spent with the patient dispensing and discussing proper diabetic footcare techniques including daily skin moisturization, daily foot inspection for any interruption in skin integrity including open lesions, or sign of infection such as redness/malodor/drainage/swelling. Also discussed and recommended were procedures regarding daily shoe inspection for the presence of internal foreign bodies as well as any visualized irregular shoe or insert wear. Patient questions re: shoes, inserts, and self foot inspections were answered to their satisfaction as the patient verbally confirmed a full understanding of the above information. A Rx for Extra Depth Orthopedic Shoes with 3 pair of custom heat-molded inserts was dispensed.? ??Screening/Special Tests:?Fall Risk?Screening:?No falls in the past year ?FALLS: Screening for Future Fall Risk?Have you had any falls with injury in the past year??No * Follow Up:?prn * Images: * Sign off status: Completed true * Provider:?Sandeep Buckley DPM Date:?2024 Generated for Shekhar mata/Adelaide/Jerrod on:?09/24/2024 09:07 AM EST History and Physical Notes * HPI (History of Present Illness) Category Sub-Category Detail Notes Category Not es Toe pain Location: B/L feet Duration: several years Course: worse Aggravated by: shoes, any pressure Treatments: change in shoes Skin problems Pt States PCP Visit: DATE: 08/02/2024 Examination Category Sub-Category Detail Notes Category Not es Neurological SENSORY: Neurological exa m reveals intact sensorium, pain sensation normal, vibration sensation intact, pinprick sensation is normal in the lower extremities, 5.07 monofilament test performed at plantar aspects of 5 varied sites per foot shows sensation, normal, B/L, Pt denies, anesthesia, burning, paresthesia, tingling, B/L Dermatologic SKIN FINDINGS: Skin exam reveal s [...] 3-4mm diameter, plantar Forefoot, Midfoot, Heel, B/L Orthopedic FOOTWEAR: worn, OT were in spected and noted to be severely worn , in poor condition not giving proper support at the present time, shoe gear properties exacerbate patient's foot/toe deformity DIGITAL DEFORMITIES: Digital contracture , PIPJ, 2-5 B/L, incompl-reducible with WB, or to push-up test, no over, nor underlapping, with evidence of shoe producing skin irritation MUSCLE STRENGTH: 5/5 all groups in a symmetrical fashion , B/L General Examination GENERAL APPEARANCE: Reveals a pleasant, alert, well nourished, well-developed, well hydrated individual, who demonstrates proper attention to hygiene/body habitus, and is in no acute distress, Pt serves as own historian for office visit today FOOT EXAM: Lower Extremity Neurological Exa m performed:: Yes Visual exam of foot performed:: Yes Date: 08/12/2024 ORIENTED: person, place, and t rangel Footwear Evaluation Footwear Evaluation performe d:: Yes Ophthalmology Referral DIABETES EYE EXAM Procedure Perform ed:: Yes ?Date of Exam Performed: 08/29/2023 Next appt is in Jan Findings of Diabetic Eye Exam:: no retin opathy Vascular DP PULSES (B): 0/4, LEFT, 1/4, RIGHT PT PULSES (B): 0/4, B/L CAPILLARY FILL TIME: delayed, all digits , B/L TEMPERTURE GRADIENT (C): decreased, cool to cool, proximal to distal, B/L TROPHIC CONDITION-TEXTURE/ELASTICITY/TURGOR/HAIR GROWTH (B): decreased, B/L EDEMA (C): 2/4, non-pitting, wi thout [...]
--- OUTSIDE RECORDS SUMMARY | 2024-09-24 09:08 | XMS_ITS ---
Author Organization [facility] Address [address] [place] [address] Care Team Providers Care Advanced Manufacturing Technician Name Role Phone Gilles THOMPSON, Jonathan Primary Care Provider Sandeep Diallo Unavailable [phone] Allergies Allergen (clinical drug ingredient) Drug/Non Drug [...] Ordered Date Performed Result Body Sit e 59910-BBFETMN NAIL, 6 OR MORE 07/08/2024 N/A 16477-Uwpc Destruction, 1-14 07/08/2024 N/A 19723-SFNU SKIN LESIONS, 2 TO 4 07/08/2024 N/A Encounters Encounter Location Date Provider Diagnosis [facility] [place] [address] [place] [id number] 07/08/2024 Sandeep Buckley Type 2 diabetes mellitus [...] Treatment Pending Test Test Name Order Date 37497-XMAEMAG NAIL, 6 OR MORE 07/08/2024 93970-Cgbc Destruction, 1-14 07/08/2024 85236-YDRP SKIN LESIONS, 2 TO 4 07/08/20 Next Appt Details Follow Up: prn, Reason: Provider Name:Sandeep Buckley , 10/21/2024 08:30:00 AM, [address] [facility], [address], [place], [address], Provider Name:Sandeep Buckley , 11/25/2024 08:30:00 AM, [address] [facility], [address], [place], [phone], Procedure Notes * Category Sub-Category Detail Notes Wart Treatment Procedure Verruca, as desc ribed in exam, were debrided to pin-point bleeding margins with sterile 15 surgical blade, silver nitrate chemocautery applied, recomm. immune-boosting meds such as zinc, recomm. follow up with topical chemosurgical agents, Pt defers any other forms of tx - 73927 Debride Nail 6-10 Nail debridement Due to the cl inical pathology outlined in the exam findings, performance of this nail treatment is medically necessary as its management by an unskilled/untrained nonprofessional would put this patients foot and overall health at risk. Therefore, debridement to affected nail(s), as described in exam ( T1, T2, T3, T4, T6, T7, T8, T9), was performed exclusively by the physician of record to reduce/remove overall nail length, girth, thickness, subungual debris, and necrotic tissue, by manual and/or electrical means through the use of a nail nipper and/or dremel-type shear grinder operator, to a more viable healthy [...] to maintain effectiveness in symptomatic relief - Keratoma Treatment Parring or Cutting o f Benign Hyperkeratotic Lesion(s) (-56) 2-4 Lesions - Due to the at risk nature of the patients medical condition as documented in the exam findings, performance of this keratoderma treatment is medically necessary as its management by an unskilled/untrained nonprofessional would put this patients foot and overall health at risk. Therefore, the benign hyperkeratotic lesions, ( 4) in total, locations as stated and described in the exam ( Medial plantar, IPJ, TA, Medial plantar, IPJ, T5, SUB MTH (s), 1, B/L), were pared, and/or cut utilizing a sterile 15 blade, tissue nippers, and/or power dremel instrumentation by the physician of record - 78576, Q8 Progress Notes * Otis MUNOZDOB: [birth year] (73 yo M)Acc No.[id number]:07/08/2024 Progress Note Patient:?JOSIAHLYDIA Otis Choi Provider:?Sandeep Buckley DPM :1950???Age:73 Y???Sex:Male Adolfo e:07/08/2024 Address:[address] [place], [place] [id number] Pcp:Jonathan Campoverde MD Subjective: * Chief Complaints: [...] trouble?denies.?Confusion?denies.?Fainting/blackouts?denies.?Tingling?denies.?Tr emors?denies.? * Medical History:? * Surgical History:?whippjeramy pr ocedure 01/2004colon 03/22/2015cataract surgery 06/2018biopsy prostate 11/2022lasik 06/20/23 * Hospitalization/Major Diagno stic Procedure:?[facility] 01/07/18-01/10/18[facility] Dehydration 05/21/18 & 05/22/18Cellulitis on lt leg 09/16/2018-09/18/2018[facility]- covid 07/17-08/03[facility] admitted for nine days 10/2021[facility] [place] - pneumonia, 3 day stay [...] HEMOGLOBIN (HGBA1C) 5.7 * Examination: ???Vascular: ?DP PULSES (B):? 0/4, LEFT, 1/4, RIGHT.?PT PULSES (B):? 0/4, B/L.?CAPILLARY FILL TIME:? delayed, all digits, B/L.?TROPHIC CONDITION-TEXTURE/ELASTICITY/TURGOR/HAIR GROWTH (B):? decreased, with sparse to absent hair growth, B/L.?TEMPERTURE GRADIENT (C):? decreased, cool to cool, proximal to distal, B/L.?PIGMENTATION:? rubrous, B/L.?EDEMA (C):? 2/4, non-pitting, without aching pain, B/L, Leg(s), Ankle(s), Feet.?CLAUDICATION (C):?denies, B/L.?REST PAIN:?denies, B/L.?Nails: ?NAILS are:?Elongated, overgrown, dystrophic, lytic, greater than 3mm thick, discolored and friable with crumbly malodorous subungual debris, with pain on palpation , T1, T2, T3, T4, T6, T7, T8, T9, all other nails not described with characteristics as possessing mycosis are elongated, overgrown, and dystrophic.?Dermatologic: ?SKIN FINDINGS:?Skin exam reveals Keratotic lesion(s) located [...] mellitus with diabetic peripheral angiopathy without gangrene?Procedure: 05118-SWAU SKIN LESIONS, 2 TO 4 3.?Tinea unguium?Procedure: 80663-SDUIATX NAIL, 6 OR MORE * Procedures:?Debride Nail 6-10:?Nail debridement?Due to the clinical pathology outlined in the exam findings, performance of this nail treatment is medically necessary as its management by an unskilled/untrained nonprofessional would put this patients foot and overall health at risk. Therefore, debridement to affected nail(s), as described in exam (?T1,?T2,?T3,?T4,?T6,?T7,?T8,?T9), was performed exclusively by the physician of record to reduce/remove overall nail length, girth, thickness, subungual debris, and necrotic tissue, by manual and/or electrical means through the use of a nail nipper and/or dremel-type shear grinder operator, to a more viable healthy nail plate or bed tissue 6- 10 nails in total. Silver nitrate was used for any petechial bleeding as necessary. Definitive antifungal treatment options, both pharmaceutical and surgical, have been reviewed and discussed with the patient. The patient solely prefers the use of intermittent/as needed professional debridement services for their nail condition and understands the need for additional periodic treatments to maintain effectiveness in symptomatic relief - 10591.?Keratoma Treatment:?Parring or Cutting of Benign Hyperkeratotic Lesion(s)?(-56) 2-4 Lesions - Due to the at risk nature of the patients medical condition as documented in the exam findings, performance of this keratoderma treatment is medically necessary as its management by an unskilled/untrained nonprofessional would put this patients foot and overall health at risk. Therefore, the benign hyperkeratotic lesions, ( 4) in total, locations as stated and described in the exam (?Medial plantar,?IPJ,?TA,?Medial plantar,?IPJ,?T5,?SUB MTH (s),?1,?B/L), were pared, and/or cut utilizing a sterile 15 blade, tissue nippers, and/or power dremel instrumentation by the physician of record - 35895, Q8.?Wart Treatment:?Procedure?Verruca, as described in exam, were debrided to pin-point bleeding margins with sterile 15 surgical blade, silver nitrate chemocautery applied, recomm. immune-boosting meds such as zinc, recomm. follow up with topical chemosurgical agents, Pt defers any other forms of tx - 61566.? * Procedure Codes:?83829 DEBRI DE NAIL, 6 OR MORE, Modifiers: XS 46029 Wart Destruction, 1-14, Modifiers: XS 82848 TRIM SKIN LESIONS, 2 TO 4, Modifiers: XS , Q8 * Follow Up:?prn * Images: * Sign off status: Completed true * Provider:Joshua Buckley DPM Date:?2023 Generated for Shekhar mata/Adelaide/Jerrod on:?09/24/2024 09:08 AM EST History and Physical Notes [...] T1, T2, T3, T4, T6, T7, T8, T9, all other nails not described with characteristics as possessing mycosis are elongated, overgrown, and dystrophic
--- OUTSIDE RECORDS SUMMARY | 2024-09-24 09:08 | XMS_ITS | Continuity of Care Document ---
Author Organization [facility] Address [address] [place] [address]- Care Team Providers Care Cost Manager Name Role Phone Gilles THOMPSON, Jonathan Neumann Primary Care Physician Encounter [facility] Date(s): 08/18/24 - 09/17/24 [facility] [address] [place], [place] [address] Encounter Type: Triage Allergies, Adverse Reactions, Alerts Substance Criticality Severity Reaction Reaction Severity Status Flomax insomnia Active Nicotine Patch rash,itching Ac tive Magnevist Low criticality Mild patient felt sick/weak after injection Resolved Fish SOB, swelling Active Immunizations Given and Recorded Vaccine Date Status Refusal Reason RSV vaccine preF3, recombinant 10/27/23 Recorded pneumococcal 20-valent conjugate vaccine 08/06/22 Recorded [id number] 12y+ bivalent booster vax 08/06/22 Recorded SARS-CoV-2 mRNA ([id number]) vax 11/29/21 Recorded SARS-CoV-2 (COVID-19) mRNA BNT-162b2 [...] Maintenance, 06/22/24 4:21:00 PM EST, [id number], 179, cm, 06/10/24 8:17:00 EST, Height, 111, [...] Refills, Maintenance, 06/01/24 9:42:00 AM EDT, Capsule, [facility]/pharmacy #[id number], Partial fill upon patient request [...] 0 Refills, Maintenance, 10/22/21 10:29:00 AM EDT, [facility], Partial fill upon patient [...] Refills, Maintenance, 10/23/21 3:23:00 PM EDT, Tablet, [facility]/pharmacy #[id number], Partial fill upon patient request if the prescription is for a schedule II opioid drug., 180, cm, 10/22/21 6:34:00 EDT, Height, 116, kg, 10/13/21 20:36:00 EST, Dry Weight Start Date: 10/23/21 Status: Ordered Quantity: 60.0 Unit: tablet Repeat number: 1 Metoprolol Succinate ER 50 mg oral tablet, extended release 1, tablet, By Mouth, Daily, # 90 tablet, Refills 3, Maintenance, 08/24/24 7:32:00 AM EST, Route to Pharmacy Electronically, [id number], 179, cm, 06/10/24 8:17:00 EST, Height, 111, kg, 04/14/24 7:24:00 EDT, Dry Weight Start Date: 08/24/24 Status: Ordered Quantity: 90.0 Unit: tablet Repeat number: 1 Nebulizer supplies Nebulizer supplies, See Instructions, # [...] Maintenance, 05/10/20 12:15:00 PM EDT, EC Capsule, [facility]/pharmacy #[id number], 180, cm, 03/25/20 12:53:00 EDT, [...] Refills, Soft Stop, 06/01/24 9:47:00 AM EDT, [facility]/pharmacy #[id number], Partial fill upon patient request [...] for malignant neoplasm of colon Trelegy Ellipta 100 mcg-62.5 mcg-25 mcg/inh inhalation powder 1 puffs, Inhalation, Daily, # 60 Unknown, 6 Refills, Maintenance, 08/25/24 5:05:00 PM EST, [facility], 179, cm, 06/10/24 8:17:00 EST, Height, 111, kg, 04/14/24 7:24:00 EDT, Dry Weight Start Date: 08/25/24 Status: Ordered Quantity: 60.0 Unit: Unknown Repeat number: 1 valsartan 40 mg oral tablet 1, tablet, By Mouth, 2 times a day, # 180 tablet, Refills 1, Maintenance, 06/14/24 7:26:00 AM EST, Route to Pharmacy Electronically, [id number], 179, cm, 06/10/24 8:17:00 EST, Height, 111, [...] Refills, Maintenance, 10/22/21 10:11:00 AM EDT, Tablet, [facility], Partial fill upon patient [...] Team Personnel Name: Gilda Atkinson RN Position: [facility] RN Member Role: Primary Care Nurse Name: Rina Stringer RN Position: [facility] RN Member Role: Primary Care Nurse Name: Natalya Yost RN Position: [facility] RN Member Role: Primary Care Nurse Name: Emily Tapia RN Position: [facility] RN Member Role: Primary Care Nurse Name: Estela Lugo RN Position: [facility] RN Member Role: Primary Care Nurse Name: Matthew Cueto RN Position: [facility] RN Member Role: Primary Care Nurse Name: Haley Irene RN Position: [facility] RN Member Role: Primary Care Nurse Name: Kaley Feng RN Position: [facility] RN Member Role: Primary Care Nurse Name: Natalya Davis RN Position: [facility] RN Member Role: Primary Care Nurse Name: Jonathan Campoverde MD Position: Reference Physician Member Role: PCP Address: [address] [place] [address] Telecom: Name: Kaylene Reid RN Position: [facility] RN Member Role: Primary Care Nurse Name: Cedric Dodson RN Position: [facility] RN Member Role: Primary Care Nurse Name: Cory Zhou RN Position: S RN Member Role: Primary Care Nurse Name: Deni Gramajo MD Position: S Outreach Member Role: Lifetime Consulting Physician Address: [address] [facility], [place] [address] Telecom: Name: Brenda Mackenzie RN Position: [facility] RN Member Role: Primary Care Nurse Name: Elsa Hawkins RN Position: S RN Member Role: Primary Care Nurse Name: Malathi Borges RN Position: [facility] RN Member Role: Primary Care Nurse Name: Riley Urias MD Position: [facility] Renal MD Member Role: Lifetime Consulting Physician Address: [address] [facility] [place], [place] [address] Telecom: Name: Heide Carrero RN Position: [facility] RN Member Role: Primary Care Nurse Name: Janett Venegas RN Position: [facility] AMB Nurse Member Role: Primary Care Nurse Name: Jorgito Kim RN Position: [facility] RN Member Role: Primary Care Nurse Name: Alberta Doherty RN Position: [facility] SN RN Member Role: Primary Care Nurse Name: Caprice Hinds RN Position: [facility] RN Member Role: Primary Care Nurse Name: Gillian Uriostegui RN Position: [facility] Parts Sales Manager Member Role: Primary Care Nurse Name: Heide Soriano RN Position: [facility] RN Member Role: Primary Care Nurse Name: Carie Geiger RN Position: [facility] RN Member Role: Primary Care Nurse Care [...]
--- OUTSIDE RECORDS SUMMARY | 2024-09-24 09:08 | XMS_ITS | Clinical Summary ---
Author Organization [facility] ity Address [address] [place] [address] Care Team Providers Care Equipment Application Specialist Name Role Phone Unavailable Primary Care Provider Unavailabl e Social History Tobacco Use Types Packs/Day Years Used Date Smoking Tobacco: Never Assessed Sex and Gender Information Value Date Recorded Sex Assigned at Not on file Legal Sex Male 6:32 AM EST Gender Identity Not on file Sexual Orientation Not on file Plan of Treatment Health Maintenance Due Date Last Done Comments DTaP,Tdap,and Td Vaccines (1 - Tdap) 1970 Pneumococcal Vaccine: 50+ Ye ars (1 of 1 - PCV) 2001 Zoster Vaccines (1 of 2) 2001 COVID-19 Vaccine ( - 2023-2 5 season) 2024 Influenza Vaccine (#1) 2024 RSV Immunization Patients 60 + Years Old (1 - 1-dose 75+ series) 2026 HIB Vaccines Aged Out No longer eligi ble based on patient's age to complete this topic HPV Vaccines Aged Out No longer eligi ble based on patient's age to complete this topic Hepatitis A Vaccines Aged Out No long er eligible based on patient's age to complete this topic Hepatitis B Vaccines Aged Out No long er eligible based on patient's age to complete this topic IPV Vaccines Aged Out No longer eligi ble based on patient's age to complete this topic MMR Vaccines Aged Out No longer eligi ble based on patient's age to complete this topic Meningococcal ACWY Vaccine Aged Out N o longer eligible based on patient's age to complete this topic Meningococcal B Vacine Aged Out No lo nger eligible based on patient's age to complete this topic RSV Immunization Patients Un linda 20 months Aged Out No longer eligible b ased on patient's age to complete this topic Varicella Vaccines Aged Out No longer eligible based on patient's age to complete this topic
--- OUTSIDE RECORDS SUMMARY | 2024-09-24 09:08 | XMS_ITS ---
Author Organization [facility] Address [address] [place] [address] Care Team Providers Care Director Of Analytical Development Name Role Phone Gilles THOMPSON, Jonathan Primary Care Provider Sandeep Diallo Unavailable [phone] Allergies Allergen (clinical drug ingredient) Drug/Non Drug Allergy documented on EMR Reaction Allergy Type Onset Date Status povidone-iodine Betadine anaphylaxis- any Fish Drug Allergy Active tamsulosin Flomax nightmares Drug Allergy Activ e REASON FOR VISIT At Risk Footcare, Painful Nail(s) aggrevated by shoes and causing difficulty standing/walking, Wart(s), Toe Irritation Medications Medication SIG (Take, Route, Frequency, Duration) Notes Start Date End Date Status oxyBUTYnin Not-Takin g Flovent HFA Active Coumadin Active Aspirin 325 MG Orally Not-T aking amLODIPine Besylate 10 MG TAKE 1 TABLET BY MOUTH EVERY DAY Oral for 15 Not-Taking Valsartan Not-Taking Aspir-81 Not-Taking Extra Depth Orthopedic Shoes, (1) Pair With (3) Pair Custom Heat Molded Multidensity Innersoles Dx: 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), Hammertoe Foot Deformity(M20.41,M20.42) , Preulcerative Skin Lesion(s)(L85.1) Wear Daily for 365 days Active Trelegy Ellipta Acti ve ProAir HFA 108 (90 Base) MCG/ACT INHALE 2 PUFFS BY MOUTH EVERY 4 HOURS NEEDED Inhalation for 16 Active Solifenacin Succinate 10 MG 1 tablet Once a day Active PreserVision AREDS 2 Active Omeprazole Active metFORMIN HCl Active Glimepiride Active Furosemide Active Social History Tobacco Use: Social History Observation Description Date Details (start date - stop date) Never Smoker NA - NA Tobacco use other than smoking: Question Answer Notes Are you an other tobacco user? No Tobacco Control (Standard) Question Answer Notes Tobacco use: Nonsmoker Additional Findings: Tobacco non-user Current no nsmoker AUDIT-C (Standard) Question Answer Notes Did you have a drink containing alcohol in the p ast year? No Points 0 Interpretation Negative Vital Signs Height 5ft 10in in 09/16/2024 Weight 237 lbs 09/16/2024 BMI 34 kg/m2 09/16/2024 Blood pressure systolic 120 mm Hg 09/16/19 25 Blood pressure diastolic 71 mm Hg 025 Procedures Procedure Date Ordered Date Performed Result Body Sit e 29113-CIZTVOW NAIL, 6 OR MORE 09/16/2024 N/A 88098-Rxtw Destruction, 1-14 09/16/2024 N/A 74093-AWRX SKIN LESIONS, 2 TO 4 09/16/2024 N/A Encounters Encounter Location Date Provider Diagnosis [facility] [place] [address] [place] [address] 09/16/2024 Sandeep Buckley Type 2 diabetes mellitus with [...] Treatment Notes Treatment Clinical Notes Section Notes 09/16/2024 Type 2 diabetes mellitus with diabetic peripheral angiopathy without gangrene (ICD-10 - E11.51) 09/16/2024 Plantar wart (ICD-10 - B07.0) 09/16/2024 Tinea unguium (ICD-10 - B35.1) 09/16/2024 Pain in right toe(s) (ICD-10 - M79.674) 09/16/2024 Pain in left toe(s) (ICD-10 - M79.675) 09/16/2024 Pain in right foot (ICD-10 - M79.671) 09/16/2024 Pain in left foot (ICD-10 - M79.672) 09/16/2024 Other hammer toe(s) (acquired), right foot (ICD-10 - M20.41) Response to treatment,Impro vement 09/16/2024 Other hammer toe(s) (acquired), left foot (ICD-10 - M20.42) Response to treatment,Impro vement Plan Of Treatment Pending Test Test Name Order Date 13157-WEKRAXU NAIL, 6 OR MORE 09/16/2024 04729-Ylqn Destruction, 1-14 09/16/2024 78854-NLLZ SKIN LESIONS, 2 TO 4 09/16/19 25 Next Appt Details Follow Up: prn, Reason: Provider Name:Sandeep Buckley , 10/21/2024 08:30:00 AM, [facility], [address], [address], Provider Name:Sandeep Buckley , 11/25/2024 08:30:00 AM, [address] [facility], [address], [address], Procedure Notes * Category Sub-Category Detail Notes Wart Treatment Procedure Verruca, as desc ribed in exam, were debrided to pin-point bleeding margins with sterile 15 surgical blade, silver nitrate chemocautery applied, recomm. immune-boosting meds such as zinc, recomm. follow up with topical chemosurgical agents, Pt defers any other forms of tx - 50644 Debride Nail 6-10 Nail debridement Due to [...] use of a nail nipper and/or dremel-type universal grinder operator, to a more viable healthy [...] to maintain effectiveness in symptomatic relief - 59466 Keratoma Treatment Parring or Cutting o f [...] instrumentation by the physician of record - 25798, Q8 Progress Notes * ALEXANDER Otis ChoiDOB: [birth year] (73 yo M)Acc No.[id number]:09/16/2024 Progress Notes Patient:?Otis MULLEN Provider:?Sandeep Buckley DPM :1950???Age:73 Y???Sex:Male Adolfo e:09/16/2024 Address:[address] [place] [phone] Pcp:Jonathan Campoverde MD Subjective: * Chief Complaints: * ???At Risk FootcarePainful N ail(s) aggrevated by shoes and causing difficulty standing/walkingWart(s)Toe Irritation * HPI: ???At Risk footcare:?Pt States Last PCP Visit:?Date?08/02/2024 ???Toe pain:?Treatments:?Rx shoes .? * ROS:?General/Constitutional:?Nausea?denies.?Vomiting?denies.?Hunger Thirst?denies.?Loss appetite?denies.?Chills?denies.?Fatigue?denies.?Fever?denies.?Night Sweats?denies.?Unexplained weight loss?denies.?Unexplained [...] M mors?denies.? * Medical History:? * Surgical History:?rj white ocedure 01/2004colon 03/22/2015cataract surgery 06/2018biopsy prostate 11/2022lasik 06/20/23 * Hospitalization/Major Diagno stic Procedure:?[facility] 01/07/18-01/10/18[facility] Dehydration 05/21/18 & 05/22/18Cellulitis on lt leg 09/16/2018-09/18/2018[facility]- covid 07/17-08/03[facility] admitted for [facility] days 10/2021[facility]- kidney stone - pneumonia, 3 day stay - Kidney Stones 03/04/24-03/07/24[facility] - Infection 03/12/24 * Family History:?Mother: dece ased, diagnosed with Other malignant neoplasm of unspecified site, Diabetic - NIDDM.?Father: .? * Social History:?Tobacco Use:?Tobacco use other than smoking?Are you an other tobacco user??No ?Tobacco Control (Standard)?Tobacco use:?Nonsmoker ?Additional Findings: Tobacco non-user?Current nonsmoker ???Drugs/Alcohol:?Drugs?Have you used drugs other than those for medical reasons in the past 12 months??No ???Miscellaneous:?Caffeine: yes, frequency:. ?Children: no. ?Exercise: no. ?Marital status: single. ?Occupation: Retired. ???Drug/Alcohol:?AUDIT-C (Standard)?Did you have a drink containing alcohol in the past year??No ?Points?0 ?Interpretation?Negative * Medications:?TakingCoumadin Flovent HFA Furosemide Glimepiride metFORMIN [...] any FishFlomax: nightmaresyes[Allergies Verified] Objective: * Vitals:?Ht:5ft 10in, Wt:237, BMI:34, Shoe size:10E, BP:120/71mm Hg, BS:108, Ht- cm: 177.8 cm, Wt-k.5 kg. * ???Past Orders: [...] T1, T2, T3, T4, T6, T7, T8, T9,Absent nail plate, TA, and T5.?Orthopedic: ?MUSCLE STRENGTH:?5/5 all groups in a symmetrical fashion , B/L.?DIGITAL DEFORMITIES:?Digital contracture, PIPJ, 2-5 B/L, incompl-reducible with WB, or to push-up test, no over, nor underlapping, no longer, with evidence of shoe producing skin irritation.?FOOTWEAR:?good condition, exhibit proper fit and accommodation for pedal deformities. OT were inspected and noted to be worn, but in good condition giving proper support at the present time.?Neurological: ?SENSORY:?Neurological exam reveals intact sensorium, pain sensation [...] and time.?FOOT EXAM:?Footwear Evaluation? Assessment: * Assessment: 1.?Type 2 diabetes mellitus with diabetic peripheral angiopathy without gangrene - E11.51???2.?Plantar wart - B07.0 (Primary)???Specify :B/L???3.?Tinea unguium - B35.1???4.?Pain in right toe(s) - M79.674???5.?Pain in left toe(s) - M79.675???6.?Pain in right foot - M79.671???7.?Pain in left foot - M79.672???8.?Other hammer toe(s) (acquired), right foot - M20.41???Specify :Chronic problem, Stable (1=3,2=4)???Notes :Response to treatment,Improvement???9.?Other hammer toe(s) (acquired), left foot - M20.42???Specify :Chronic problem, Stable (1=3,2=4)???Notes :Response to treatment,Improvement??? Plan: * Treatment: 2.?Type 2 diabetes mellitus with diabetic peripheral angiopathy without gangrene?Procedure: 78049-SAZJ SKIN LESIONS, 2 TO 4 3.?Tinea unguium?Procedure: 52825-FFHTIJS NAIL, 6 OR MORE * Procedures:?Debride Nail [...] use of a nail nipper and/or dremel-type universal grinder operator, to a more viable healthy [...] to maintain effectiveness in symptomatic relief - 09770.?Keratoma Treatment:?Parring or Cutting of Benign Hyperkeratotic Lesion(s)?(-56) [...] instrumentation by the physician of record - 12250, Q8.?Wart Treatment:?Procedure?Verruca, as described in exam, were debrided to pin-point bleeding margins with sterile 15 surgical blade, silver nitrate chemocautery applied, recomm. immune-boosting meds such as zinc, recomm. follow up with topical chemosurgical agents, Pt defers any other forms of tx - 37795.? * Procedure Codes:?70079 DEBRI DE NAIL, 6 OR MORE, Modifiers: XS 09575 Wart Destruction, 1-14, Modifiers: XS 26909 TRIM SKIN LESIONS, 2 TO 4, Modifiers: XS , Q8 * Preventive Medicine:? ??Counseling:?Discussion:?-13: Office or other outpatient visit for the evaluation and management of an established patient, which required a medically appropriate history and/or examination and LOW level of DECISION MAKING for: 1 STABLE ACUTE UNCOMPLICATED PROBLEM, 2 OR MORE MINOR PROBLEMS, OR 1 STABLE CHRONIC PROBLEM, THAT POSE(S) A LOW RISK FOR MORBIDITY/MORTALITY. The visit on the day of the [...] have encouraged the patient to call the office.?Shoe Gear Counseling:?A thorough inspection of the patients Rxed shoegear and inserts was performed and findings communicated. We reviewed the many important medical advantages for adhering to regularly wearing these shoe and insert accomidative devices daily as well as reviewed the fact that a failure in accepting these recommedations may be deleterious, unable to prevent, and disadvantagely result in, many pedal complications such as skin irritation, skin ulceration, infection, and even loss of toe/foot/leg/or even their life. Time was also spent reviewing the proper footcare techniques including daily skin moisturization, daily foot inspection for any interruption in skin integrity, open lesions, or sign of infection such as redness/malodor/drainage/swelling as well as daily shoe inspection for the presence of internal foreign bodies and shoe as well as insert wear. Patient questions re: shoes, inserts, and self foot inspections were answered to their satisfaction as the patient verbally confirmed a full understanding of the above information.? ??Screening/Special Tests:?Fall Risk?Screening:?No falls in the past year ?FALLS: Screening for Future Fall Risk?Have you had any falls with injury in the past year??No * Follow Up:?prn * Images: * Sign off status: Completed true * Provider:?Sandeep Buckley DPM Date:?2024 Generated for Shekhar mata/Adelaide/Jerrod on:?09/24/2024 09:08 AM EST History and Physical Notes * HPI (History of Present Illness) Category Sub-Category Detail Notes Category Not es Toe pain Treatments: Rx shoes At Risk footcare Pt States Last PCP [...] plantar Forefoot, Midfoot, Heel, B/L Orthopedic FOOTWEAR: good condition, exhibit proper fit and accommodation for pedal deformities. OT were inspected and noted to be worn, but in good condition giving proper support at the present time DIGITAL DEFORMITIES: Digital contracture , PIPJ, 2-5 B/L, incompl-reducible with WB, or to push-up test, no over, nor underlapping, no longer, with evidence of shoe producing skin irritation [...] Visual exam of foot performed:: Yes Date: 09/16/2024 ORIENTED: person, place, and t rangel Footwear Evaluation Footwear Evaluation performe d:: Yes Ophthalmology Referral DIABETES EYE EXAM Procedure Perform ed:: Yes ?Date of Exam Performed: 08/29/2023 Next appt is Sep 29 Diabetic Retinopathy Screening:: Yes Retinal Screening Performed:: Yes Findings of Diabetic Eye Exam:: no retin [...] T2, T3, T4, T6, T7, T8, T9, Absent nail plate, TA, and T5
== END 2024-09-24 09:19 | disposition home or self-care (01) ==
LOC: HO.ACS 08:47
PROVIDERS: PCP Internal Medicine; Visit Provider Internal Medicine
DX: Z79.01 Long term (current) use of anticoagulants (principal)

== ENCOUNTER → 2024-09-24 08:47 | Outpatient (BNVA) | payer MEDICARE, OTHER, SELFPAY | PROVIDERS: PCP Internal Medicine; Visit Provider Internal Medicine | DX: I26.99 Other pulmonary embolism without acute cor pulmonale (principal); Z79.01 Long term (current) use of anticoagulants; Z51.81 Encounter for therapeutic drug level monitoring | CPT/HCPCS: 85610; 99211 ==

== ENCOUNTER 2024-10-08 08:48 | Outpatient (AMB) | payer MEDICARE, OTHER, SELFPAY ==
--- NOTE | 2024-10-08 09:10 | MHC.OFFVISCO ---
Intake Intake Visit Reasons: Anticoagulation Allergies nicotine Allergy (Intermediate, Verified 10/08/24 08:58) Rash fish derived [FISH] Allergy (Unknown, Verified 10/08/24 08:58) ANGIOEDEMA tamsulosin [Flomax] Adverse Reaction (Intermediate, Verified 10/08/24 08:58) nightmares Medication List - Last Reconciled 10/08/24 by Marie Shaver, RN albuterol sulfate mg inhalation Q6H PRN albuterol sulfate 90 mcg/actuation inhalation blood sugar diagnostic (FreeStyle Lite Strips) daily blood-glucose meter (FreeStyle [place] Lite kit) As directed [custom heat molded multidensity innersoles wear 3 pairs of custom heat molded multidensity innersoles wear] docusate sodium (Stool Softener) 100 mg PO DAILY [extra depth orthopedic shoes with 3 pairs of custom heat molded multidensity innersoles wear] fluticasone propionate 50 mcg/actuation 1 spray intranasal DAILY tyedipkkntm-xpgswhuzm-vlyqxuzn 100-62.5-25 mcg (Trelegy Ellipta) 1 ea inhalation DAILY furosemide 40 mg PO QAM glimepiride 1 mg PO DAILY hydrocortisone 2.5% appl topical lancets (FreeStyle Lancets) test daily metformin 1,000 mg PO BID metoprolol succinate ER 50 mg PO DAILY omeprazole 40 mg PO DAILY polyethylene glycol 3350 (Miralax) 17 grams PO DAILY saw palmetto 450 mg PO BID solifenacin 10 mg PO DAILY triamcinolone acetonide 0.1% 1 appl topical BID-TID vitamins A,C,R-buwk-uypogs 2,148 mcg-113 mg-45 mg-17.4mg (PreserVision AREDS) 1 tab PO BID warfarin 7.5 mg See Protocol PO DAILY MDD 1.5 tablets daily Nursing Note INR: 2.2 in therapeutic range of 2-3 Medications and supplements reviewed No changes in health, diet, medications, or supplements, Denies any signs and symptoms of bleeding or bruising or clotting. Bleeding, bruising, clotting discussed Nutritional guidance given Dose: 7.5mg X 4 days and 11.25mg X 3 days (Mon, Wed & Fri) F/U INR: 2 weeks Patient verbalizes understanding of instructions given Anti-Coag Initial Assessment Social Hx Patient Tobacco Use Status: Former Tobacco user Tobacco use type: Cigarette alcohol intake: current Alcohol intake frequency: holidays/special occasions only Cardiovascular Hx: HTN, CHF and Cardiomyopathy Lung Disease HX: Asthma, COPD and DVT/PE Endocrine Hx: Diabetes Blood Disorder Hx: Other GI Hx: Other Cancer HX: No Coding Level of Care Code Est Patient Level 1 Diagnoses Current use of anticoagulant therapy Z79.01 Results AMB INR Fingerstick AMB INR Fingerstick 2.2 Last Edit by Marie Shaver RN on 10/08/24 09:04 interface delay Assessment & Plan Assessment & Plan (1) Current use of anticoagulant therapy: Code(s): Z79.01 - 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
[2024-10-08 09:12] LABS: Prothrombin Time Whole Bld POC 26.9 sec (11.1-13.5); ~PT, ~INR - Anti Coag Clinic 2.2 (0.9-1.1)
--- OUTSIDE RECORDS SUMMARY | 2024-10-08 09:20 | XMS_ITS ---
Author Organization [facility] Address [address] [place] [address] Care Team Providers Care Support Staff Name Role Phone Gilles THOMPSON, Jonathan Primary Care Provider Sandeep Diallo Unavailable [phone] Allergies Allergen (clinical drug ingredient) Drug/Non Drug [...] Ordered Date Performed Result Body Sit e 86649-Ieyd Destruction, 1-14 08/12/2024 N/A Encounters Encounter Location Date Provider Diagnosis [facility] [place] [address] [place] [phone] 08/12/2024 Sandeep Buckley Right foot pain M79.671 [...] INSTRUCTIONS.pdf) Pending Test Test Name Order Date 84218-Jghj Destruction, 1-14 08/12/2024 Next Appt Details Follow Up: prn, Reason: Provider Name:Sandeep V Ina , 10/21/2024 08:30:00 AM, [address] , [address] [facility], [place], [address], Provider Name:Sandeep Buckley , 11/25/2024 08:30:00 AM, [address] , [address] [facility], [place], [address], Procedure Notes * Category Sub-Category Detail Notes Wart Treatment Procedure Verruca, as desc ribed in exam, were debrided to pin- point bleeding margins with sterile 15 surgical blade, silver nitrate chemocautery applied, recomm. immune-boosting meds such as zinc, recomm. follow up with topical chemosurgical agents, Pt defers any other forms of tx - 92438 Progress Notes * Otis MULLENDOB: [birth year] (73 yo M)Acc No.[id number]:08/12/2024 Progress Notes Patient:?SONJAPOLO Otis Choi Provider:?Sandeep Buckley DPM :1950???Age:73 Y???Sex:Male Adolfo e:08/12/2024 Address:[address] [place] [phone] Pcp:Jonathan Campoverde MD Subjective: * Chief Complaints: [...] & 05/22/18Cellulitis on lt leg 09/16/2018-09/18/2018[facility]- covid 07/17-08/03[facility] admitted for nine days 10/2021[facility]- kidney stone - pneumonia, 3 day stay [...] 6.3 * Examination: ???Ophthalmology Referral: ?DIABETES EYE EXAM?Procedure Performed:?Yes ?Date of Exam Performed?08/29/2023 Next appt is in Jan ?Findings of Diabetic Eye Exam:?no retinopathy?Dermatologic: ?SKIN FINDINGS:?Skin exam reveals Keratotic lesion(s) located [...] for office visit today.?ORIENTED:?person, place, and time.?FOOT EXAM:?Lower Extremity Neurological Exam performed:?Yes ?Visual exam of foot performed:?Yes ?Date?08/12/2024 ?Footwear Evaluation?Footwear Evaluation performed:?Yes??? Assessment: * Assessment: 1.?Plantar wart - B07.0 [...] defers any other forms of tx - 90596.? * Procedure Codes:?04800 Wart Destruction, 1-14 * Preventive Medicine:? ??Counseling:?Discussion:?-14: [...] Buckley DPM Date:?2024 Generated for Shekhar mata/Adelaide/Jerrod on:?10/08/2024 09:20 AM EST History and Physical Notes * [...]
--- OUTSIDE RECORDS SUMMARY | 2024-10-08 09:21 | XMS_ITS ---
Author Organization [facility] Address [address] [place] [address] Care Team Providers Care Emissions Testing And Repair Technician Name Role Phone Gilles THOMPSON, Jonathan Primary Care Provider Sandeep Diallo Unavailable [phone] Allergies Allergen (clinical drug ingredient) Drug/Non Drug [...] Ordered Date Performed Result Body Sit e 18829-HNPEXVB NAIL, 6 OR MORE 09/16/2024 N/A 55095-Cpgf Destruction, 1-14 09/16/2024 N/A 09025-ALZI SKIN LESIONS, 2 TO 4 09/16/2024 N/A Encounters Encounter Location Date Provider Diagnosis [facility] [place] [address] [place] [phone] 09/16/2024 Sandeep Buckley Type 2 diabetes mellitus [...] Treatment Pending Test Test Name Order Date 20420-AYKCCIM NAIL, 6 OR MORE 09/16/2024 81824-Cvpw Destruction, 1-14 09/16/2024 60447-ROYH SKIN LESIONS, 2 TO 4 09/16/19 25 Next Appt Details Follow Up: prn, Reason: Provider Name:Sandeep Buckley , 10/21/2024 08:30:00 AM, [facility], [address], [address], Provider Name:Sandeep Buckley , 11/25/2024 08:30:00 AM, [address] [facility], [address], [address], Procedure Notes * Category Sub-Category Detail Notes Wart Treatment Procedure Verruca, as desc ribed in exam, were debrided to pin-point bleeding margins with sterile 15 surgical blade, silver nitrate chemocautery applied, recomm. immune-boosting meds such as zinc, recomm. follow up with topical chemosurgical agents, Pt defers any other forms of tx - 41697 Debride Nail 6-10 Nail debridement Due to [...] use of a nail nipper and/or dremel-type diamond grinder, to a more viable healthy nail [...] to maintain effectiveness in symptomatic relief - 94992 Keratoma Treatment Parring or Cutting o f [...] instrumentation by the physician of record - 51516, Q8 Progress Notes * ALEXANDER Otis ChoiDOB: [birth year] (73 yo M)Acc No.[id number]:09/16/2024 Progress Notes Patient:?Otis MULLEN Provider:?Sandeep Buckley DPM :1950???Age:73 Y???Sex:Male Adolfo e:09/16/2024 Address:[address] [place] [phone] Pcp:Jonathan Campoverde MD Subjective: * Chief Complaints: [...] & 05/22/18Cellulitis on lt leg 09/16/2018-09/18/2018[facility]- covid 07/17-08/03[place] admitted for nine days 10/2021[facility] [...] ?Date of Exam Performed?08/29/2023 Next appt is Sep 29 ?Diabetic Retinopathy Screening:?Yes ?Retinal Screening Performed:?Yes ?Findings of Diabetic Eye Exam:?no retinopathy?Dermatologic: ?SKIN [...] Exam performed:?Yes ?Visual exam of foot performed:?Yes ?Date?09/16/2024 ?Footwear Evaluation?Footwear Evaluation performed:?Yes??? Assessment: * Assessment: 1.?Type 2 diabetes mellitus [...] mellitus with diabetic peripheral angiopathy without gangrene?Procedure: 51802-LKNX SKIN LESIONS, 2 TO 4 3.?Tinea unguium?Procedure: 26763-MNWDLKN NAIL, 6 OR MORE * Procedures:?Debride Nail [...] use of a nail nipper and/or dremel-type diamond grinder, to a more viable healthy nail [...] to maintain effectiveness in symptomatic relief - 02127.?Keratoma Treatment:?Parring or Cutting of Benign Hyperkeratotic Lesion(s)?(-56) [...] instrumentation by the physician of record - 50319, Q8.?Wart Treatment:?Procedure?Verruca, as described in exam, were debrided to pin-point bleeding margins with sterile 15 surgical blade, silver nitrate chemocautery applied, recomm. immune-boosting meds such as zinc, recomm. follow up with topical chemosurgical agents, Pt defers any other forms of tx - 69138.? * Procedure Codes:?71875 DEBRI DE NAIL, 6 OR MORE, Modifiers: XS 75622 Wart Destruction, 1-14, Modifiers: XS 14091 TRIM SKIN LESIONS, 2 TO 4, Modifiers: [...] DPM Date:?2024 Generated for Shekhar mata/Adelaide/Jerrod on:?10/08/2024 09:21 AM EST History and Physical Notes * [...]
--- OUTSIDE RECORDS SUMMARY | 2024-10-08 09:21 | XMS_ITS | Patient Health Record ---
Author Organization [facility] Address [address] [place] [address] Care Team Providers Care Photograph Enlarger Name Role Phone Gilles THOMPSON, Jonathan Primary Care Provider Sandeep Diallo Unavailable [phone] Allergies Allergen (clinical drug ingredient) Drug/Non Drug [...] (HGBA1C) 5.7 HEMOGLOBIN A1C (GLYCOHEMOGLO BIN) Reviewed date:08/12/2024 08:30:35 AM Interpretation: Performing Lab: Notes/Report: HEMOGLOBIN A1C % (HH) 6.3 Reason For Referral No Information Medications Medication SIG (Take, Route, Frequency, Duration) Notes Start Date End Date Status Furosemide Active Flovent HFA Active Valsartan Not-Taking Coumadin Active Aspir-81 Not-Taking oxyBUTYnin Not-Takin g Extra Depth Orthopedic Shoes, (1) Pair With [...] 2 Active Omeprazole Active metFORMIN HCl Active Aspirin 325 MG Orally Not-T aking Glimepiride Active amLODIPine Besylate 10 MG TAKE 1 TABLET BY MOUTH EVERY DAY Oral for 15 Not-Taking Immunizations Vaccine Route Administration Date Status Comme [...] ast year? No Points 0 Interpretation Negative Problems Problem Type SNOMED Code ICD Code Onset Dates Problem Status W/U Status Risk Notes Problem Acquired hammer toe of right foot (9214163637770 105) Other hammer toe(s) (acquired), right foot (M20.41) Active confirmed Response to treatment,I mprovement Problem Type 2 diabetes mellitus with peripheral angiopathy (857385142) Type 2 diabetes mellitus with diabetic peripheral angiopathy without gangrene (E11.51) Active confirmed Problem Acquired hammer toe of left foot (6652770724240 103) Other hammer toe(s) (acquired), left foot (M20.42) Active confirmed Response to treatment,I mprovement Problem Plantar wart (36692131) Plantar wart (B07.0) Active confirmed Chronic Vital Signs Blood pressure diastolic 71 mm Hg 09/16/2024 Height 5ft 10in in 09/16/2024 Blood pressure systolic 120 mm Hg 09/16/2024 Weight 237 lbs 09/16/2024 BMI 34 kg/m2 09/16/2024 Procedures Procedure Date Ordered Date Performed Result Body Sit e 11822-Dsaw Destruction, 1-14 10/27/2023 N/A 41817-UDZMRHQ NAIL, 6 OR MORE 12/01/2023 N/A 35029-Bvnl Destruction, 1-14 12/01/2023 N/A 26562-VWMU SKIN LESIONS, 2 TO 4 12/01/2023 N/A 17532-Mqeb Destruction, 1-14 01/12/2024 N/A 24162-JIHBDKB NAIL, 6 OR MORE 02/16/2024 N/A 21346-Sjzm Destruction, 1-14 02/16/2024 N/A 52985-WORX SKIN LESIONS, 2 TO 4 02/16/2024 N/A 62555-Rjmy Destruction, 1-14 03/18/2024 N/A 05921-AEIYMYT NAIL, 6 OR MORE 04/27/2024 N/A 96122-Cjwv Destruction, 1-14 04/27/2024 N/A 03773-YWLM SKIN LESIONS, 2 TO 4 04/27/2024 N/A 83858-Usjv Destruction, 1-14 06/04/2024 N/A 91663-SWHOYGS NAIL, 6 OR MORE 07/08/2024 N/A 35726-Bkwr Destruction, 1-14 07/08/2024 N/A 93615-BUEH SKIN LESIONS, 2 TO 4 07/08/2024 N/A 87794-Cviv Destruction, 1-14 08/12/2024 N/A 86384-HYCPJCA NAIL, 6 OR MORE 09/16/2024 N/A 49474-Cmkj Destruction, 1-14 09/16/2024 N/A 09170-ILFL SKIN LESIONS, 2 TO 4 09/16/2024 N/A Encounters Encounter Location Date [facility] [address] [place] [address] 10/27/2023 Sandeep Buckley Right foot pain M79.671 ; Plantar wart B07.0 ; Left foot pain M79.672 ; Other hammer toe(s) (acquired), right foot M20.41 and Other hammer toe(s) (acquired), left foot M20.[address] [address] 12/01/2023 Sandeep Ina Type 2 diabetes mellitus with diabetic peripheral angiopathy without gangrene E11.51 ; Plantar wart B07.0 ; Tinea unguium B35.1 ; Pain in right toe(s) M79.674 ; Pain in left toe(s) M79.675 ; Pain in right foot M79.671 and Pain in left foot M79.[address] [address] 01/12/2024 Sandeep Ina Right foot pain M79.671 ; Plantar wart B07.0 and Left foot pain M79.[address] [address] 02/16/2024 Sandeepsanjana CastIna Type 2 diabetes mellitus with diabetic peripheral angiopathy without gangrene E11.51 ; Plantar wart B07.0 ; Tinea unguium B35.1 ; Pain in right toe(s) M79.674 ; Pain in left toe(s) M79.675 ; Pain in right foot M79.671 ; Pain in left foot M79.672 ; Other hammer toe(s) (acquired), right foot M20.41 and Other hammer toe(s) (acquired), left foot M20.[address] [address] 03/18/2024 Sandeep Ina Right foot pain M79.671 ; Plantar wart B07.0 and Left foot pain M79.[address] [address] 04/27/2024 Sandeepsanjana CastIna Type 2 diabetes mellitus with diabetic peripheral angiopathy without gangrene E11.51 ; Plantar wart B07.0 ; Tinea unguium B35.1 ; Pain in right toe(s) M79.674 ; Pain in left toe(s) M79.675 ; Pain in right foot M79.671 and Pain in left foot M79.[address] [address] 06/04/2024 Sandeepsanjana Buckley Right foot pain M79.671 ; Plantar wart B07.0 and Left foot pain M79.[address] [address] 07/08/2024 Sandeep Buckley Type 2 diabetes mellitus with diabetic peripheral angiopathy without gangrene E11.51 ; Plantar wart B07.0 ; Tinea unguium B35.1 ; Pain in right toe(s) M79.674 ; Pain in left toe(s) M79.675 ; Pain in right foot M79.671 and Pain in left foot M79.[address] [address] 08/12/2024 Sandeep Buckley Right foot pain M79.671 ; Plantar wart B07.0 ; Left foot pain M79.672 ; Other hammer toe(s) (acquired), right foot M20.41 and Other hammer toe(s) (acquired), left foot M20.[address] [address] 09/16/2024 Sandeep Buckley Type 2 diabetes mellitus [...] Treatment Notes Treatment Clinical Notes Section Notes 10/27/2023 Plantar wart (ICD-10 - B07.0) 10/27/2023 [...] E11.51) 07/08/2024 Plantar wart (ICD-10 - B07.0) 08/12/2024 Plantar wart (ICD-10 - B07.0) 08/12/2024 Right foot pain (ICD-10 - M79.671) 09/16/2024 Type 2 diabetes mellitus with diabetic peripheral angiopathy without gangrene (ICD-10 - E11.51) 09/16/2024 Plantar wart (ICD-10 - B07.0) 09/16/2024 Tinea unguium (ICD-10 - B35.1) 08/12/2024 Left foot pain (ICD-10 - M79.672) 07/08/2024 Tinea unguium (ICD-10 - B35.1) 06/04/2024 Left foot pain (ICD-10 - M79.672) 04/27/2024 Tinea unguium (ICD-10 - B35.1) 03/18/2024 Left foot pain (ICD-10 - M79.672) 02/16/2024 Tinea unguium (ICD-10 - B35.1) 12/01/2023 Tinea unguium (ICD-10 - B35.1) 01/12/2024 Left foot pain (ICD-10 - M79.672) 10/27/2023 Left foot pain (ICD-10 - M79.672) 10/27/2023 Other hammer toe(s) (acquired), right foot (ICD-10 - M20.41) Patient Educated with: DIABETIC FOOT CARE INSTRUCTIONS.p df (DIABETIC FOOT CARE INSTRUCTIONS.p df) 12/01/2023 Pain in right toe(s) (ICD-10 - M79.674) 02/16/2024 Pain in right toe(s) (ICD-10 - M79.674) 07/08/2024 Pain in right toe(s) (ICD-10 - M79.674) 08/12/2024 Other hammer toe(s) (acquired), right foot (ICD-10 - M20.41) Patient Educated with: DIABETIC FOOT CARE INSTRUCTIONS.p df (DIABETIC FOOT CARE INSTRUCTIONS.p df) 04/27/2024 Pain in right toe(s) (ICD-10 - M79.674) 09/16/2024 Pain in right toe(s) (ICD-10 - M79.674) 09/16/2024 Pain in left toe(s) (ICD-10 - M79.675) 08/12/2024 Other hammer toe(s) (acquired), left foot (ICD-10 - M20.42) 07/08/2024 Pain in left toe(s) (ICD-10 - M79.675) 02/16/2024 Pain in left toe(s) (ICD-10 - M79.675) 04/27/2024 Pain in left toe(s) (ICD-10 - M79.675) 10/27/2023 Other hammer toe(s) (acquired), left foot (ICD-10 - M20.42) 12/01/2023 Pain in left toe(s) (ICD-10 - M79.675) 12/01/2023 Pain in right foot (ICD-10 - M79.671) 04/27/2024 Pain in right foot (ICD-10 - M79.671) 07/08/2024 Pain in right foot (ICD-10 - M79.671) 02/16/2024 Pain in right foot (ICD-10 - M79.671) 09/16/2024 Pain in right foot (ICD-10 - M79.671) 09/16/2024 Pain in left foot (ICD-10 - M79.672) 02/16/2024 Pain in left foot (ICD-10 - M79.672) 07/08/2024 Pain in left foot (ICD-10 - M79.672) 04/27/2024 Pain in left foot (ICD-10 - M79.672) 12/01/2023 Pain in left foot (ICD-10 - M79.672) 02/16/2024 Other hammer toe(s) (acquired), right foot (ICD-10 - M20.41) Response to treatment,Impro vement 09/16/2024 Other hammer toe(s) (acquired), right foot (ICD-10 - M20.41) Response to treatment,Impro vement 09/16/2024 Other hammer toe(s) (acquired), left foot (ICD-10 - M20.42) Response to treatment,Impro vement 02/16/2024 Other hammer toe(s) (acquired), left foot (ICD-10 - M20.42) Response to treatment,Impro vement Plan Of Treatment Pending Test Test Name Order Date 07541-PLNUVHN NAIL, 6 OR MORE 08/21/2017 27052-CGFZFUU NAIL, 6 OR MORE 10/27/2017 53401-FDGRYZC NAIL, 6 OR MORE 01/15/2018 72761-NXGBUQT NAIL, 6 OR MORE 04/13/2018 17917-FYTJWUH NAIL, 6 OR MORE 07/06/2018 57268-QHUXHGH NAIL, 6 OR MORE 2018 76083-DVLNVNT NAIL, 6 OR MORE 12/31/2018 30694-JBMMUPP NAIL, 6 OR MORE 03/18/2019 49933-FZFHWXC NAIL, 6 OR MORE 05/27/2019 32515-VMKRNPG NAIL, 6 OR MORE 08/16/2019 67761-WJCIOFT NAIL, 6 OR MORE 10/28/2019 70297-VFBTMDL NAIL, 6 OR MORE 01/17/2020 06954-LFPTAMW NAIL, 6 OR MORE 04/19/2020 70895-VISKYFS NAIL, 6 OR MORE 07/05/2020 20225-WBBNFIZ NAIL, 6 OR MORE 09/21/2020 79769-YBWMMAW NAIL, 6 OR MORE 12/04/2020 58467-FDDPJAL NAIL, 6 OR MORE 02/15/2021 28652-ASMHFWA NAIL, 6 OR MORE 04/25/2021 17319-YXBOWAB NAIL, 6 OR MORE 07/05/2021 15963-MPOICYG NAIL, 6 OR MORE 09/20/2021 80268-VXLYUAI NAIL, 6 OR MORE 01/09/2022 59434-QJKWSWQ NAIL, 6 OR MORE 04/15/2022 11996-LWPFZLX NAIL, 6 OR MORE 07/11/2022 57155-FCRNYUD NAIL, 6 OR MORE 10/03/2022 64841-TYEZMHG NAIL, 6 OR MORE 01/09/2023 94621-EJYTZKI NAIL, 6 OR MORE 03/27/2023 87081-ZLNNHHM NAIL, 6 OR MORE 06/23/2023 45885-KURAESZ NAIL, 6 OR MORE 09/03/2023 37865-ZARPSET NAIL, 6 OR MORE 12/01/2023 96228-IYIHBIJ NAIL, 6 OR MORE 02/16/2024 92517-XBUONYT NAIL, 6 OR MORE 04/27/2024 56256-FWHFQZW NAIL, 6 OR MORE 07/08/2024 89280-EOUBLXA NAIL, 6 OR MORE 09/16/2024 93525-Oygu Destruction, -14 09/16/2024 67788-Rvbj Destruction, -14 06/04/2024 73697-Zvru Destruction, -14 08/12/2024 09509-Jxnu Destruction, -14 07/08/2024 73549-Qfbl Destruction, -14 04/27/2024 28535-Ttvh Destruction, -02/16/2024 25950-Xoth Destruction, -14 01/12/2024 03522-Aioe Destruction, -14 03/18/2024 18158-Pjrg Destruction, -14 12/01/2023 52027-Tafa Destruction, -14 07/30/2023 63351-Hatx Destruction, -10/27/2023 91116-Rkge Destruction, 08-1709/03/2023 83575-Amzi Destruction, 08-1706/23/2023 49420-Rzdd Destruction, 08-1703/27/2023 42086-Kxzu Destruction, 08-1702/20/2023 07656-Whyv Destruction, 08-1705/05/2023 84020-Xigm Destruction, 08-1701/09/2023 53733-Egwq Destruction, 08-1708/22/2022 86871-Pfhl Destruction, 08-1711/18/2022 72601-Mkxv Destruction, 08-1710/03/2022 46220-Gaud Destruction, 08-1707/11/2022 42605-Lrst Destruction, 08-1704/15/2022 34573-Hylk Destruction, 08-1705/30/2022 93535-Vvrc Destruction, 08-1702/21/2022 99108-Fvmf Destruction, 08-1709/20/2021 35480-Rubs Destruction, 08-1710/29/2021 24261-Byvk Destruction, 08-1712/05/2021 48967-Vwmh Destruction, 08-1701/09/2022 67494-Jbym Destruction, 08-1707/05/2021 87726-Jdwc Destruction, 08-1704/25/2021 37775-Eleq Destruction, 08-1705/31/2021 21241-Ugwl Destruction, 08-1702/15/2021 62085-Lhby Destruction, 08-1703/21/2021 87867-Jibt Destruction, 08-1712/04/2020 44102-Dhph Destruction, 08-1701/11/2021 81383-Wxsb Destruction, 08-1709/21/2020 04973-Ugwz Destruction, 08-1710/30/2020 45263-Tzls Destruction, 08-1707/05/2020 64363-Bvlc Destruction, 08-1708/14/2020 28294-Slnd Destruction, 08-1704/19/2020 81347-Zjee Destruction, 08-1706/05/2020 77179-Xpwr Destruction, 08-1701/17/2020 73947-Rksq Destruction, -03/09/2020 50492-Zfss Destruction, 08-1710/28/2019 30476-Kaqs Destruction, 08-1712/09/2019 15935-Qeka Destruction, 08-1708/16/2019 12228-Sano Destruction, 08-1709/22/2019 67298-Swmp Destruction, 08-1705/27/2019 92236-Nfmg Destruction, 08-1706/24/2019 24771-Ddiu Destruction, 08-1707/14/2019 66532-Yote Destruction, 08-1703/18/2019 48293-Llhm Destruction, 08-1704/19/2019 38804-Bkvz Destruction, 08-1712/31/2018 93752-Ryjq Destruction, 08-1702/15/2019 94268-Kubl Destruction, 08-1709/28/2018 24491-Icwq Destruction, 08-1711/19/2018 54735-Eahl Destruction, 08-1708/17/2018 25075-Iwbd Destruction, 08-1705/25/2018 53197-Rryw Destruction, 08-1707/06/2018 16571-Inov Destruction, 08-1704/13/2018 84729-Xdht Destruction, 08-1710/27/2017 09312-Satr Destruction, 08-1708/21/2017 45400-Kzjx Destruction, 08-1701/15/2018 72571- Debride <25 sq cm 12/24/2017 11815- Debride <25 sq cm 12/31/2017 77201-CAQE SKIN LESIONS, 2 TO 4 07/11/20 84934-OHUJ SKIN LESIONS, 2 TO 4 10/04/19 06636-KCLM SKIN LESIONS, 2 TO 4 01/10/20 07147-JZUJ SKIN LESIONS, 2 TO 4 03/27/20 27145-NAZM SKIN LESIONS, 2 TO 4 06/23/20 12708-HAMA SKIN LESIONS, 2 TO 4 09/03/19 35364-HGWT SKIN LESIONS, 2 TO 4 12/01/19 89469-SCLP SKIN LESIONS, 2 TO 4 02/16/20 23214-JTHU SKIN LESIONS, 2 TO 4 04/27/20 10691-VYRX SKIN LESIONS, 2 TO 4 07/08/20 38049-BDZP SKIN LESIONS, 2 TO 4 09/16/19 37088 - TENOTOMY, OPEN, EXTENSOR 018 Next Appt Details Provider Name:Sandeep Buckley , 10/21/2024 08:30:00 AM, [address] [facility], [place], [address], Provider Name:Sandeep Buckley , 11/25/2024 08:30:00 AM, [address] , [address], [place], [address], Insurance Providers Payer Name Payer Address Payer Phone Subscriber Number Group Number Insured Name Patient Relationship to Insured Coverage Start Date Coverage End Date Medicare National Govt [id number] [address] [place] [address] [id number] Otis Mullen Self - patient is the insured [address] [place] [address] SATH[place] Meyer [phone] [id number] Otis Mullen Self - patient is the insured Medical (General) History Medical History History ICD Code asthma Chicken pox Hypertension Measles Mumps Reflux Surgical History Surgery Date(Month/Year) whipple procedure 01/2004 colon 03/22/2015 cataract surgery 06/2018 biopsy prostate 11/2022 lasik 06/20/23 Hospitalization History Reason Date(Month/Year) [facility] - Infection 03/12/24 [facility]- Kidney Stones 03/04/24-03/07/24 [facility]- pneumonia, 3 day stay 11/2023 [facility] [place] kidney stone 03/2022 [facility] admitted for nine days 10/2021 [facility]- covid 07/17-08/03 Cellulitis on lt leg 09/16/2018-09/18/19 19 [facility] Dehydration 05/21/18 & 05/22/18 [facility] 01/07/18-01/10/18
--- OUTSIDE RECORDS SUMMARY | 2024-10-08 09:21 | XMS_ITS | Clinical Summary ---
Author Organization [facility] Address [address] [place] [address] Care Team Providers Care Window Machine Operator Name Role Phone Unavailable Primary Care Provider [...]
--- OUTSIDE RECORDS SUMMARY | 2024-10-08 09:21 | XMS_ITS ---
[facility] Organization [facility] Address [address] [place] [address] Care Team Providers Care Product Tester Name Role Phone Gilles THOMPSON, Jonathan Primary Care Provider Sandeep Diallo Unavailable [phone] Allergies Allergen (clinical drug ingredient) Drug/Non Drug [...] Ordered Date Performed Result Body Sit e 02458-KISOLQP NAIL, 6 OR MORE 07/08/2024 N/A 00043-Lcik Destruction, 1-14 07/08/2024 N/A 55919-RDKD SKIN LESIONS, 2 TO 4 07/08/2024 N/A Encounters Encounter Location Date Provider Diagnosis [facility] [place] [address] [place] [address] 07/08/2024 Sandeep Buckley Type 2 diabetes mellitus [...] Treatment Pending Test Test Name Order Date 77842-BIRAPQB NAIL, 6 OR MORE 07/08/2024 42522-Duwy Destruction, 1-14 07/08/2024 00051-YDES SKIN LESIONS, 2 TO 4 07/08/20 Next Appt Details Follow Up: prn, Reason: Provider Name:Sandeep Buckley , 10/21/2024 08:30:00 AM, [address] [facility], [address], [place], [address], Provider Name:Sandeep Buckley , 11/25/2024 08:30:00 AM, [address] [facility], [address], [place], [address], Procedure Notes * Category Sub-Category Detail Notes Wart Treatment Procedure Verruca, as desc ribed in exam, were debrided to pin-point bleeding margins with sterile 15 surgical blade, silver nitrate chemocautery applied, recomm. immune-boosting meds such as zinc, recomm. follow up with topical chemosurgical agents, Pt defers any other forms of tx - 16864 Debride Nail 6-10 Nail debridement Due to [...] use of a nail nipper and/or dremel-type liquor grinder mill operator, to a more viable healthy nail [...] instrumentation by the physician of record - 26042, Q8 Progress Notes * Otis MUNOZDOB: [birth year] (73 yo M)Acc No.[id number]:07/08/2024 Progress Note Patient:?JOSIAHLYDIA Otis Choi Provider:?Sandeep Buckley DPM :1950???Age:73 Y???Sex:Male Adolfo e:07/08/2024 Address:[address] [place], [place] [phone] Pcp:Jonathan Campoverde MD Subjective: * Chief Complaints: [...] 09/16/2018-09/18/2018[facility]- covid 07/17-08/03[facility] [place] for nine [place] [place] - pneumonia, 3 day stay [...] mellitus with diabetic peripheral angiopathy without gangrene?Procedure: 43461-JCWM SKIN LESIONS, 2 TO 4 3.?Tinea unguium?Procedure: 91789-ZULXCEE NAIL, 6 OR MORE * Procedures:?Debride Nail [...] use of a nail nipper and/or dremel-type liquor grinder mill operator, to a more viable healthy nail [...] to maintain effectiveness in symptomatic relief - 31945.?Keratoma Treatment:?Parring or Cutting of Benign Hyperkeratotic Lesion(s)?(-56) [...] instrumentation by the physician of record - 57440, Q8.?Wart Treatment:?Procedure?Verruca, as described in exam, were debrided to pin-point bleeding margins with sterile 15 surgical blade, silver nitrate chemocautery applied, recomm. immune-boosting meds such as zinc, recomm. follow up with topical chemosurgical agents, Pt defers any other forms of tx - 97713.? * Procedure Codes:?79898 DEBRI DE NAIL, 6 OR MORE, Modifiers: XS 10284 Wart Destruction, 1-14, Modifiers: XS 66134 TRIM SKIN LESIONS, 2 TO 4, Modifiers: XS , Q8 * Follow Up:?prn * Images: * Sign off status: Completed true * Provider:Joshua Buckley DPM Date:?2023 Generated for Shekhar mata/Adelaide/Jerrod on:?10/08/2024 09:21 AM [...]
== END 2024-10-08 09:11 | disposition home or self-care (01) ==
LOC: HO.ACS 08:48
PROVIDERS: PCP Internal Medicine; Visit Provider Internal Medicine
DX: Z79.01 Long term (current) use of anticoagulants (principal)

== ENCOUNTER → 2024-10-08 08:48 | Outpatient (BNVA) | payer MEDICARE, OTHER, SELFPAY | PROVIDERS: PCP Internal Medicine; Visit Provider Internal Medicine | DX: I26.99 Other pulmonary embolism without acute cor pulmonale (principal); Z79.01 Long term (current) use of anticoagulants; Z51.81 Encounter for therapeutic drug level monitoring | CPT/HCPCS: 85610; 99211 ==

== ENCOUNTER 2024-10-13 07:19 | Outpatient (REF) | payer MEDICARE, OTHER, SELFPAY ==
--- OUTSIDE RECORDS SUMMARY | 2024-10-13 07:22 | XMS_ITS | Patient Health Record ---
Author Organization [facility] Address [address] [place] [address] Care Team Providers Care Executive Director Of Marketing Name Role Phone Gilles THOMPSON, Jonathan Primary Care Provider Sandeep Diallo Unavailable [phone] Allergies Allergen (clinical drug ingredient) Drug/Non Drug Allergy documented on EMR Reaction Allergy Type Onset Date Status povidone-iodine Betadine anaphylaxis- any Fish Drug Allergy Active tamsulosin Flomax nightmares Drug Allergy Activ e Results Component Value Reference Range Notes HEMOGLOBIN A1C (GLYCOHEMOGLO BIN) Reviewed date:08/12/2024 08:30:35 AM Interpretation: Performing Lab: Notes/Report: HEMOGLOBIN A1C % (HH) 6.3 HEMOGLOBIN A1C (GLYCOHEMOGLO BIN) Reviewed date:07/08/2024 08:35:36 AM Interpretation: Performing Lab: Notes/Report: TOTAL HEMOGLOBIN (HGBA1C) 5.7 HEMOGLOBIN A1C (GLYCOHEMOGLO BIN) Reviewed date:02/16/2024 10:22:24 AM Interpretation: Performing Lab: Notes/Report: HEMOGLOBIN A1C % (HH) 6 HEMOGLOBIN A1C (GLYCOHEMOGLO BIN) Reviewed date:10/27/2023 08:33:54 [...] Problem Acquired hammer toe of right foot (6428513200452 105) Other hammer toe(s) (acquired), right foot (M20.41) Active confirmed Response to treatment,I mprovement Problem Type 2 diabetes mellitus with peripheral angiopathy (503275624) Type 2 diabetes mellitus with diabetic peripheral angiopathy without gangrene (E11.51) Active confirmed Problem Acquired hammer toe of left foot (3829828592413 103) Other hammer toe(s) (acquired), left foot (M20.42) Active confirmed Response to treatment,I mprovement Problem Plantar wart (00363759) Plantar wart (B07.0) Active confirmed Chronic Vital Signs Blood pressure diastolic 71 mm Hg 09/16/2024 Height 5ft 10in in 09/16/2024 Blood pressure systolic 120 mm Hg 09/16/2024 Weight 237 lbs 09/16/2024 BMI 34 kg/m2 09/16/2024 Procedures Procedure Date Ordered Date Performed Result Body Sit e 91788-Ehre Destruction, 1-14 10/27/2023 N/A 25049-IVYASPQ NAIL, 6 OR MORE 12/01/2023 N/A 66765-Izlk Destruction, 1-14 12/01/2023 N/A 28099-ELDZ SKIN LESIONS, 2 TO 4 12/01/2023 N/A 12707-Wmfo Destruction, 1-14 01/12/2024 N/A 38688-CXCIULX NAIL, 6 OR MORE 02/16/2024 N/A 79604-Hfdd Destruction, 1-14 02/16/2024 N/A 67404-LIEL SKIN LESIONS, 2 TO 4 02/16/2024 N/A 74955-Syvh Destruction, 1-14 03/18/2024 N/A 86858-ROKIOJC NAIL, 6 OR MORE 04/27/2024 N/A 38917-Njxa Destruction, 1-14 04/27/2024 N/A 41225-ZLUF SKIN LESIONS, 2 TO 4 04/27/2024 N/A 99299-Ojgd Destruction, 1-14 06/04/2024 N/A 19376-BJKMDQZ NAIL, 6 OR MORE 07/08/2024 N/A 51424-Crcn Destruction, 1-14 07/08/2024 N/A 09699-NWUM SKIN LESIONS, 2 TO 4 07/08/2024 N/A 16009-Pjmt Destruction, 1-14 08/12/2024 N/A 01307-DCVMHQZ NAIL, 6 OR MORE 09/16/2024 N/A 20190-Twzr Destruction, 1-14 09/16/2024 N/A 74297-QWGH SKIN LESIONS, 2 TO 4 09/16/2024 N/A Encounters Encounter Location Date [facility] [address] [place] [address] 10/27/2023 Sandeep Buckley Right foot pain M79.671 ; Plantar wart B07.0 ; Left foot pain M79.672 ; Other hammer toe(s) (acquired), right foot M20.41 and Other hammer toe(s) (acquired), left foot M20.[address] [address] 12/01/2023 Sandeep Ina Type 2 diabetes mellitus with diabetic peripheral angiopathy without gangrene E11.51 ; Plantar wart B07.0 ; Tinea unguium B35.1 ; Pain in right toe(s) M79.674 ; Pain in left toe(s) M79.675 ; Pain in right foot M79.671 and Pain in left foot M79.[address] [address] 01/12/2024 Sandeep Ina Right foot pain M79.671 ; Plantar wart B07.0 and Left foot pain M79.[address] [address] 02/16/2024 Sandeepsanjana CastIna Type 2 diabetes mellitus with diabetic peripheral angiopathy without gangrene E11.51 ; Plantar wart B07.0 ; Tinea unguium B35.1 ; Pain in right toe(s) M79.674 ; Pain in left toe(s) M79.675 ; Pain in right foot M79.671 ; Pain in left foot M79.672 ; Other hammer toe(s) (acquired), right foot M20.41 and Other hammer toe(s) (acquired), left foot M20.[address] [address] 03/18/2024 Sandeep Ina Right foot pain M79.671 ; Plantar wart B07.0 and Left foot pain M79.[address] [address] 04/27/2024 Sandeepsanjana CastIna Type 2 diabetes mellitus with diabetic peripheral angiopathy without gangrene E11.51 ; Plantar wart B07.0 ; Tinea unguium B35.1 ; Pain in right toe(s) M79.674 ; Pain in left toe(s) M79.675 ; Pain in right foot M79.671 and Pain in left foot M79.[address] [address] 06/04/2024 Sandeepsanjana Buckley Right foot pain M79.671 ; Plantar wart B07.0 and Left foot pain M79.[address] [address] 07/08/2024 Sandeep Buckley Type 2 diabetes mellitus with diabetic peripheral angiopathy without gangrene E11.51 ; Plantar wart B07.0 ; Tinea unguium B35.1 ; Pain in right toe(s) M79.674 ; Pain in left toe(s) M79.675 ; Pain in right foot M79.671 and Pain in left foot M79.[address] [address] 08/12/2024 Sandeep Buckley Right foot pain M79.671 ; Plantar wart B07.0 ; Left foot pain M79.672 ; Other hammer toe(s) (acquired), right foot M20.41 and Other hammer toe(s) (acquired), left foot M20.[address] [address] 09/16/2024 Sandeep Buckley Type 2 diabetes mellitus [...] Treatment Pending Test Test Name Order Date 95701-RJROUAT NAIL, 6 OR MORE 08/21/2017 63720-ZYPXDQB NAIL, 6 OR MORE 10/27/2017 11348-BPHIMCT NAIL, 6 OR MORE 01/15/2018 97834-DEULDUB NAIL, 6 OR MORE 04/13/2018 37663-HHIZXGW NAIL, 6 OR MORE 07/06/2018 71750-HHQBIYN NAIL, 6 OR MORE 2018 91577-BMKVXVD NAIL, 6 OR MORE 12/31/2018 52886-QOLFKBT NAIL, 6 OR MORE 03/18/2019 41484-ADYJYMW NAIL, 6 OR MORE 05/27/2019 58640-FYICJAM NAIL, 6 OR MORE 08/16/2019 36977-RDIOCHJ NAIL, 6 OR MORE 10/28/2019 92556-RXMQPZF NAIL, 6 OR MORE 01/17/2020 60157-YMMXKZS NAIL, 6 OR MORE 04/19/2020 68005-IAYVEJA NAIL, 6 OR MORE 07/05/2020 03842-UTAUFVX NAIL, 6 OR MORE 09/21/2020 91727-WCNVUKG NAIL, 6 OR MORE 12/04/2020 38407-NQRTUAI NAIL, 6 OR MORE 02/15/2021 65466-ORUIJVI NAIL, 6 OR MORE 04/25/2021 24712-RPWOFFM NAIL, 6 OR MORE 07/05/2021 07906-ZHKXUJB NAIL, 6 OR MORE 09/20/2021 36862-PYNOFNC NAIL, 6 OR MORE 01/09/2022 27916-MBFDNTN NAIL, 6 OR MORE 04/15/2022 15550-HWFWWDA NAIL, 6 OR MORE 07/11/2022 58136-IMIGHDH NAIL, 6 OR MORE 10/03/2022 37413-BWLBKKM NAIL, 6 OR MORE 01/09/2023 19028-VIBOYUG NAIL, 6 OR MORE 03/27/2023 46722-DRCMZWD NAIL, 6 OR MORE 06/23/2023 78321-GETDHRS NAIL, 6 OR MORE 09/03/2023 89740-XFLSGMR NAIL, 6 OR MORE 12/01/2023 75524-BCBGIRG NAIL, 6 OR MORE 02/16/2024 36309-ZPIXZYK NAIL, 6 OR MORE 04/27/2024 68382-UCZNXLJ NAIL, 6 OR MORE 07/08/2024 68336-YDKGPLB NAIL, 6 OR MORE 09/16/2024 46850-Qokj Destruction, -14 09/16/2024 76121-Zckt Destruction, -14 06/04/2024 23674-Nabt Destruction, -14 08/12/2024 99354-Skbw Destruction, -14 07/08/2024 38901-Kcya Destruction, -14 04/27/2024 68359-Hbma Destruction, -02/16/2024 47634-Pekq Destruction, -14 01/12/2024 01059-Emhw Destruction, -14 03/18/2024 54777-Mgoo Destruction, -14 12/01/2023 21848-Amit Destruction, -14 07/30/2023 89558-Oaiu Destruction, -10/27/2023 60259-Iflm Destruction, 08-1709/03/2023 50146-Qogw Destruction, 08-1706/23/2023 64122-Nsbe Destruction, 08-1703/27/2023 65450-Sfqs Destruction, 08-1702/20/2023 58454-Neqx Destruction, 08-1705/05/2023 44403-Vnbl Destruction, 08-1701/09/2023 90346-Tpqy Destruction, 08-1708/22/2022 81222-Yfyf Destruction, 08-1711/18/2022 61316-Cnab Destruction, 08-1710/03/2022 02880-Subq Destruction, 08-1707/11/2022 68349-Aayx Destruction, 08-1704/15/2022 34308-Stkc Destruction, 08-1705/30/2022 97599-Emev Destruction, 08-1702/21/2022 67769-Qfqw Destruction, 08-1709/20/2021 79558-Gtic Destruction, 08-1710/29/2021 06915-Brlw Destruction, 08-1712/05/2021 30931-Ukxv Destruction, 08-1701/09/2022 21974-Xbjq Destruction, 08-1707/05/2021 04519-Yqom Destruction, 08-1704/25/2021 15976-Krji Destruction, 08-1705/31/2021 45821-Zmiw Destruction, 08-1702/15/2021 96011-Zxtw Destruction, 08-1703/21/2021 35691-Blfx Destruction, 08-1712/04/2020 50527-Kjsx Destruction, 08-1701/11/2021 66459-Tevt Destruction, 08-1709/21/2020 43422-Sqpp Destruction, 08-1710/30/2020 09830-Wbck Destruction, 08-1707/05/2020 62977-Jhlp Destruction, 08-1708/14/2020 37619-Bpnn Destruction, 08-1704/19/2020 61262-Vlus Destruction, 08-1706/05/2020 48630-Ybgy Destruction, 08-1701/17/2020 10063-Nwqa Destruction, -03/09/2020 38615-Yhyf Destruction, 08-1710/28/2019 30413-Twnb Destruction, 08-1712/09/2019 06432-Vbyt Destruction, 08-1708/16/2019 50772-Uijk Destruction, 08-1709/22/2019 93678-Fjry Destruction, 08-1705/27/2019 21028-Itio Destruction, 08-1706/24/2019 14417-Bmnq Destruction, 08-1707/14/2019 11374-Tman Destruction, 08-1703/18/2019 05299-Lpsw Destruction, 08-1704/19/2019 32621-Oaby Destruction, 08-1712/31/2018 26171-Yalf Destruction, 08-1702/15/2019 43305-Pciu Destruction, 08-1709/28/2018 34969-Ntji Destruction, 08-1711/19/2018 83280-Zbea Destruction, 08-1708/17/2018 53976-Jmzc Destruction, 08-1705/25/2018 63211-Fzaq Destruction, 08-1707/06/2018 96879-Usnr Destruction, 08-1704/13/2018 91845-Taks Destruction, 08-1710/27/2017 21749-Spbh Destruction, 08-1708/21/2017 21311-Wvny Destruction, 08-1701/15/2018 63704- Debride <25 sq cm 12/24/2017 24043- Debride <25 sq cm 12/31/2017 62303-NZHN SKIN LESIONS, 2 TO 4 07/11/20 76211-QHEX SKIN LESIONS, 2 TO 4 10/04/19 21316-WREJ SKIN LESIONS, 2 TO 4 01/10/20 44222-OZPW SKIN LESIONS, 2 TO 4 03/27/20 91396-WVYI SKIN LESIONS, 2 TO 4 06/23/20 09724-JSRY SKIN LESIONS, 2 TO 4 09/03/19 75869-CYNS SKIN LESIONS, 2 TO 4 12/01/19 80003-ASBI SKIN LESIONS, 2 TO 4 02/16/20 79439-OTYT SKIN LESIONS, 2 TO 4 04/27/20 85270-NLIC SKIN LESIONS, 2 TO 4 07/08/20 35241-SGZZ SKIN LESIONS, 2 TO 4 09/16/19 89824 - TENOTOMY, OPEN, EXTENSOR 018 Next Appt Details Provider Name:Sandeep Buckley , 10/21/2024 08:30:00 AM, [address] [facility], [place], [address], Provider Name:Sandeep Buckley , 11/25/2024 08:30:00 AM, [address] , [address], [place], [address], Insurance Providers Payer Name Payer Address Payer Phone Subscriber Number Group Number Insured Name Patient Relationship to Insured Coverage Start Date Coverage End Date Medicare National Govt [employer] [address] [place] [address] [id number] Otis Mullen Self - patient is the insured [address] [employer] [address] SATHISH Meyer [phone] [id number] Otis Mullen Self - patient is the insured Medical (General) History Medical History History ICD Code asthma Chicken pox Hypertension Measles Mumps Reflux Surgical History Surgery Date(Month/Year) whipple procedure 01/2004 colon 03/22/2015 cataract surgery 06/2018 biopsy prostate 11/2022 lasik 06/20/23 Hospitalization History Reason Date(Month/[facility]) [facility] - [facility]fection 03[facility]12[facility]24 [facility]- Kidney Stones 03/04/24-03/07/24 [facility]- pneumonia, 3 day stay 11/2023 [facility] [place] 03/2022 [facility] admitted [facility] nine days 10/2021 [facility]- covid 07/17-08/03 Cellulitis on lt leg 09/16/2018-09/18/19 19 [facility] Dehydration 05/21/18 & 05/22/18 [facility] 01/07/18-01/10/18
--- OUTSIDE RECORDS SUMMARY | 2024-10-13 07:22 | XMS_ITS ---
Author Organization [facility] Address [address] [place] [address] Care Team Providers Care Mixed Livestock Farm Worker Name Role Phone Gilles THOMPSON, Jonathan Primary Care Provider Sandeep Diallo Unavailable [phone] Allergies Allergen (clinical drug ingredient) Drug/Non Drug Allergy documented on EMR Reaction Allergy Type Onset Date Status Betadine anaphylaxis- any Fish Drug Allergy Active Flomax nightmares Drug Allergy Active REASON FOR VISIT Wart(s), Toe Irritation Medications [...] Ordered Date Performed Result Body Sit e 70469-Kssx Destruction, 1-14 08/12/2024 N/A Encounters Encounter Location Date Provider Diagnosis [facility] [place] [address] [place] [address] 08/12/2024 Sandeep Buckley Right foot pain M79.671 [...] INSTRUCTIONS.pdf) Pending Test Test Name Order Date 79788-Lidr Destruction, 1-14 08/12/2024 Next Appt Details Follow Up: prn, Reason: Provider Name:Sandeep Steele Ina , 10/21/2024 08:30:00 AM, [address] [place] [address], [place], [address], Provider Name:Sandeep Buckley , 11/25/2024 08:30:00 AM, [address] , [address] [facility], [place], [address], Procedure Notes * Category Sub-Category Detail Notes Wart Treatment Procedure Verruca, as desc ribed in exam, were debrided to pin- point bleeding margins with sterile 15 surgical blade, silver nitrate chemocautery applied, recomm. immune-boosting meds such as zinc, recomm. follow up with topical chemosurgical agents, Pt defers any other forms of tx - 51834 Progress Notes * Otis MULLENDOB: [birth year] (73 yo M)Acc No.[id number]:08/12/2024 Progress Notes Patient:?Otis MULLEN Provider:?Sandeep Buckley DPM :1950???Age:73 Y???Sex:Male Adolfo e:08/12/2024 Address:[address] [place], [place] [address] Pcp:Jonathan Campoverde MD Subjective: * Chief Complaints: [...] mors?denies.? * Medical History:? * Surgical History:?rj pr ocedure 01/2004colon 03/22/2015cataract surgery 06/2018biopsy prostate 11/2022lasik 06/20/23 * Hospitalization/Major Diagno stic Procedure:?[facility] 01/07[facility]01[facility]10[facility]18[facility] Dehydration 05/21/18 & 05/22/18Cellulitis on lt leg 09/16/2018-09/18/2018[facility]- covid 07/17-08/03[facility] admitted for nine days 10/2021[facility] [place] stone - pneumonia, 3 day stay - Kidney Stones 03/04/24-03/07/24[facility] - Infection 03/12/24 * Family History:?Mother: dece [...] defers any other forms of tx - 03266.? * Procedure Codes:?90864 Wart Destruction, 1-14 * Preventive Medicine:? ??Counseling:?Discussion:?-14: [...] Buckley DPM Date:?2024 Generated for Shekhar mata/Adelaide/Jerrod on:?10/13/2024 07:22 AM EDT History and Physical Notes * HPI (History [...]
--- OUTSIDE RECORDS SUMMARY | 2024-10-13 07:22 | XMS_ITS ---
Author Organization [facility] Address [address] [place] [address] Care Team Providers Care Program Advocate Name Role Phone Gilles THOMPSON, Jonathan Primary Care Provider Sandeep Diallo Unavailable [phone] Allergies Allergen (clinical drug ingredient) Drug/Non Drug [...] Ordered Date Performed Result Body Sit e 58839-KGRQFST NAIL, 6 OR MORE 07/08/2024 N/A 71590-Tqwi Destruction, 1-14 07/08/2024 N/A 12873-BHIG SKIN LESIONS, 2 TO 4 07/08/2024 N/A Encounters Encounter Location Date Provider Diagnosis [facility] [place] [address] [place] [address] 07/08/2024 Sandeep Buckley Type 2 diabetes mellitus [...] Treatment Pending Test Test Name Order Date 03939-SWHDUEB NAIL, 6 OR MORE 07/08/2024 32959-Njgg Destruction, 1-14 07/08/2024 47482-KIGC SKIN LESIONS, 2 TO 4 07/08/20 Next Appt Details Follow Up: prn, Reason: Provider Name:Sandeep Buckley , 10/21/2024 08:30:00 AM, [address] [facility], [address], [place], [address], Provider Name:Sandeep Buckley , 11/25/2024 08:30:00 AM, [address] [facility], [address], [place], [address], Procedure Notes * Category Sub-Category Detail Notes Wart Treatment Procedure Verruca, as desc ribed in exam, were debrided to pin-point bleeding margins with sterile 15 surgical blade, silver nitrate chemocautery applied, recomm. immune-boosting meds such as zinc, recomm. follow up with topical chemosurgical agents, Pt defers any other forms of tx - 71019 Debride Nail 6-10 Nail debridement Due to [...] use of a nail nipper and/or dremel-type notch grinder, to a more viable healthy nail [...] instrumentation by the physician of record - 00330, Q8 Progress Notes * Otis MUNOZDOB: [birth year] (73 yo M)Acc No.[id number]:07/08/2024 Progress Note Patient:?JOSIAHLYDIA Otis Choi Provider:?Sandeep Buckley DPM :1950???Age:73 Y???Sex:Male Adolfo e:07/08/2024 Address:[address] [place], [place] [address] Pcp:Jonathan Campoverde MD Subjective: * Chief Complaints: [...] 09/16/2018-09/18/2018[facility]- covid 07/17-08/03[facility] admitted for nine days 10/2021[facility] [place] kidney stone - pneumonia, 3 day stay [...] mellitus with diabetic peripheral angiopathy without gangrene?Procedure: 59101-WOEE SKIN LESIONS, 2 TO 4 3.?Tinea unguium?Procedure: 99163-EHGCMYL NAIL, 6 OR MORE * Procedures:?Debride Nail [...] use of a nail nipper and/or dremel-type notch grinder, to a more viable healthy nail [...] to maintain effectiveness in symptomatic relief - 16848.?Keratoma Treatment:?Parring or Cutting of Benign Hyperkeratotic Lesion(s)?(-56) [...] instrumentation by the physician of record - 84233, Q8.?Wart Treatment:?Procedure?Verruca, as described in exam, were debrided to pin-point bleeding margins with sterile 15 surgical blade, silver nitrate chemocautery applied, recomm. immune-boosting meds such as zinc, recomm. follow up with topical chemosurgical agents, Pt defers any other forms of tx - 56833.? * Procedure Codes:?62551 DEBRI DE NAIL, 6 OR MORE, Modifiers: XS 15111 Wart Destruction, 1-14, Modifiers: XS 57590 TRIM SKIN LESIONS, 2 TO 4, Modifiers: XS , Q8 * Follow Up:?prn * Images: * Sign off status: Completed true * Provider:Joshua Buckley DPM Date:?2023 Generated for Shekhar mata/Adelaide/eTransravaniitting on:?10/13/2024 07:22 AM EDT History and Physical [...]
--- OUTSIDE RECORDS SUMMARY | 2024-10-13 07:22 | XMS_ITS | Continuity of Care Document ---
Author Organization [facility] Address [address] [place] [address]- Care Team Providers Care Truck Driving Instructor Name Role Phone Jonathan Campoverde MD Primary Care Physician Encounter [facility] [place] Date(s): 06/11/24 - 10/09/24 [facility] [address] [place], [place] [address] Attending Physician: Jordan Arauz MD Admitting Physician: Jordan Arauz MD Referring Physician: Jonathan Campoverde MD Encounter Type: Pre-OutPatient One Time Allergies, Adverse Reactions, Alerts Substance Criticality Severity Reaction Reaction Severity Status Flomax insomnia Active Magnevist Low criticality Mild patient felt sick/weak after injection Resolved Fish SOB, swelling Active Nicotine Patch rash,itching Ac tive Immunizations Given and Recorded Vaccine Date Status Refusal Reason RSV vaccine preF3, recombinant 10/27/23 Recorded pneumococcal 20-valent conjugate vaccine 08/06/22 Recorded QPST-TdY-[id number] 12y+ bivalent booster vax 08/06/22 Recorded SARS-CoV-2 mRNA (ztixrgs-ecgs-dwlqj) vax 11/29/21 Recorded SARS-CoV-2 (COVID-19) mRNA BNT-162b2 [...] Maintenance, 06/22/24 4:21:00 PM EST, [id number], 179, cm, 06/10/24 8:17:00 EST, Height, 111, [...] Refills, Maintenance, 06/01/24 9:42:00 AM EDT, Capsule, [facility] #[id number], Partial fill upon patient request [...] 0 Refills, Maintenance, 10/22/21 10:29:00 AM EDT, [facility], Partial fill upon patient [...] Refills, Maintenance, 10/23/21 3:23:00 PM EDT, Tablet, [facility]/pharmacy #[id number], Partial fill upon patient request [...] 7:32:00 AM EST, Route to Pharmacy Electronically, [id number], 179, cm, 06/10/24 8:17:00 EST, Height, 111, [...] Maintenance, 05/10/20 12:15:00 PM EDT, EC Capsule, [facility]/pharmacy #[id number], 180, cm, 03/25/20 12:53:00 EDT, [...] Refills, Soft Stop, 06/01/24 9:47:00 AM EDT, [facility]/pharm[facility] #[id number], Partial fill upon patient request [...] 6 Refills, Maintenance, 08/25/24 5:05:00 PM EST, [facility], 179, cm, 06/10/24 8:17:00 EST, Height, 111, kg, 04/14/24 7:24:00 EDT, Dry Weight Start Date: 08/25/24 Status: Ordered Quantity: 60.0 Unit: Unknown Repeat number: 1 valsartan 40 mg oral tablet 1, tablet, By Mouth, 2 times a day, # 180 tablet, Refills 1, Maintenance, 06/14/24 7:26:00 AM EST, Route to Pharmacy Electronically, [id number], 179, cm, 06/10/24 8:17:00 EST, Height, 111, kg, 04/14/24 7:24:00 EDT, Dry Weight Start Date: 06/14/24 Status: Ordered Quantity: 180.0 Unit: tablet Repeat number: 1 Vitamin C = 1,000 mg, By Mouth, Daily, 0 Refills, Maintenance, 08/16/20 5:16:00 PM EST, Partial fill upon patient request if the prescription is for a schedule II opioid drug. Start Date: 1/13/21 Status: Ordered Repeat number: 1 warfarin 7.5 mg oral tablet 1 tablet = 7.5 mg, By Mouth, Daily, # 30 tablet, 0 Refills, Maintenance, 10/22/21 10:11:00 AM EDT, Tablet, [facility], Partial fill upon patient [...] Team Personnel Name: Gilda Atkinson RN Position: [facility] RN Member Role: Primary Care Nurse Name: Rina Stringer RN Position: [facility] RN Member Role: Primary Care Nurse Name: Natalya Yost RN Position: [facility] RN Member Role: Primary Care Nurse Name: Emily Tapia RN Position: [facility] RN Member Role: Primary Care Nurse Name: Estela Lugo RN Position: [facility] RN Member Role: Primary Care Nurse Name: Matthew Cueto RN Position: [facility] RN Member Role: Primary Care Nurse Name: Haley Irene RN Position: [facility] RN Member Role: Primary Care Nurse Name: Kaley Feng RN Position: [facility] RN Member Role: Primary Care Nurse Name: Natalya Davis RN Position: [facility] RN Member Role: Primary Care Nurse Name: Jonathan Campoverde MD Position: Reference Physician Member Role: PCP Address: [address] [place] [address] Telecom: Name: Kaylene Reid RN Position: S RN Member Role: Primary Care Nurse Name: Cedric Dodson RN Position: S RN Member Role: Primary Care Nurse Name: Cory Zhou RN Position: [facility] RN Member Role: Primary Care Nurse Name: Deni Gramajo MD Position: S Outreach Member Role: Lifetime Consulting Physician Address: [address] [facility], [place], [place] [address] Telecom: Name: Brenda Mackenzie RN Position: S RN Member Role: Primary Care Nurse Name: Elsa Hawkins RN Position: [facility] RN Member Role: Primary Care Nurse Name: Malathi Borges RN Position: [facility] RN Member Role: Primary Care Nurse Name: Riley Urias MD Position: [facility] Renal MD Member Role: Lifetime Consulting Physician Address: [address] [facility] [place] [place] [address] Telecom: Name: Heide Carrero RN Position: [facility] RN Member Role: Primary Care Nurse Name: Janett Venegas RN Position: [facility] AMB Nurse Member Role: Primary Care Nurse Name: Jorgito Kim RN Position: [facility] RN Member Role: Primary Care Nurse Name: Alberta Doherty RN Position: [facility] SN RN Member Role: Primary Care Nurse Name: Caprice Hinds RN Position: [facility] RN Member Role: Primary Care Nurse Name: Gillian Uriostegui RN Position: [facility] Ladle Liner Helper Member Role: Primary Care Nurse Name: Heide Soriano RN Position: [facility] RN Member Role: Primary Care Nurse Name: Carie Geiger RN Position: [facility] RN Member Role: Primary Care Nurse Care Team Related Persons Name: DELFINA MUNOZ Name: ANMOL MUNOZ Insurance Providers Guarantor name: MATHIEU MUNOZ Health Plan Information #: 2 Payer: [employer]ENN[employer]AR[employer] SUP Member Number: [id number] Policy Number: NA Group Number: NA Health Plan Information #: 1 Payer: MEDICARE PART B OUTPT Member Number: [id number] Policy Number: NA Group Number: NA
--- OUTSIDE RECORDS SUMMARY | 2024-10-13 07:22 | XMS_ITS ---
Author Organization [facility] Address [address] [place] [address] Care Team Providers Care Financial Advocate Name Role Phone Gilles THOMPSON, Jonathan Primary Care Provider Sandeep Diallo Unavailable [phone] Allergies Allergen (clinical drug ingredient) Drug/Non Drug [...] Ordered Date Performed Result Body Sit e 48722-FRDSVGF NAIL, 6 OR MORE 09/16/2024 N/A 98184-Oyfu Destruction, 1-14 09/16/2024 N/A 67981-JTVC SKIN LESIONS, 2 TO 4 09/16/2024 N/A Encounters Encounter Location Date Provider Diagnosis [facility] [place] [address] [place] [id number] 09/16/2024 Sandeep Buckley Type 2 diabetes mellitus [...] Treatment Pending Test Test Name Order Date 21588-JEAKCRE NAIL, 6 OR MORE 09/16/2024 94775-Suer Destruction, 1-14 09/16/2024 93709-JWBJ SKIN LESIONS, 2 TO 4 09/16/19 25 Next Appt Details Follow Up: prn, Reason: Provider Name:Sandeep Buckley , 10/21/2024 08:30:00 AM, Critical access hospital0 [facility], [address], [address], Provider Name:Sandeep Buckley , 11/25/2024 08:30:00 AM, [address] [facility], [address], [address], Procedure Notes * Category Sub-Category Detail Notes Wart Treatment Procedure Verruca, as desc ribed in exam, were debrided to pin-point bleeding margins with sterile 15 surgical blade, silver nitrate chemocautery applied, recomm. immune-boosting meds such as zinc, recomm. follow up with topical chemosurgical agents, Pt defers any other forms of tx - 59122 Debride Nail 6-10 Nail debridement Due to [...] use of a nail nipper and/or dremel-type grinder set up operator thread, to a more viable healthy nail plate [...] to maintain effectiveness in symptomatic relief - 45033 Keratoma Treatment Parring or Cutting o f [...] instrumentation by the physician of record - 01113, Q8 Progress Notes * ALEXANDER Otis ChoiDOB: [birth year] (73 yo M)Acc No.[id number]:09/16/2024 Progress Notes Patient:?Otis MULLEN Provider:?Sandeep Buckley DPM :1950???Age:73 Y???Sex:Male Adolfo e:09/16/2024 Address:[address] [place] [id number] Pcp:Jonathan Campoverde MD Subjective: * Chief Complaints: [...] & 05/22/18Cellulitis on lt leg 09/16/2018-09/18/2018[facility]- covid 07/17-08/03[facility] [place] admitted for nine days 10/2021[facility] [place] - pneumonia, 3 day stay [...] mellitus with diabetic peripheral angiopathy without gangrene?Procedure: 52218-LIQN SKIN LESIONS, 2 TO 4 3.?Tinea unguium?Procedure: 74086-GCGWGWL NAIL, 6 OR MORE * Procedures:?Debride Nail [...] use of a nail nipper and/or dremel-type grinder set up operator thread, to a more viable healthy nail plate [...] to maintain effectiveness in symptomatic relief - 59843.?Keratoma Treatment:?Parring or Cutting of Benign Hyperkeratotic Lesion(s)?(-56) [...] instrumentation by the physician of record - 46661, Q8.?Wart Treatment:?Procedure?Verruca, as described in exam, were debrided to pin-point bleeding margins with sterile 15 surgical blade, silver nitrate chemocautery applied, recomm. immune-boosting meds such as zinc, recomm. follow up with topical chemosurgical agents, Pt defers any other forms of tx - 38611.? * Procedure Codes:?80591 DEBRI DE NAIL, 6 OR MORE, Modifiers: XS 69963 Wart Destruction, 1-14, Modifiers: XS 26477 TRIM SKIN LESIONS, 2 TO 4, Modifiers: [...]
--- OUTSIDE RECORDS SUMMARY | 2024-10-13 07:22 | XMS_ITS | Clinical Summary ---
Author Organization [facility] ity Address [address] [place] [address] Care Team Providers Care Ore Dryer Name Role Phone Unavailable Primary Care Provider [...]
[2024-10-13 08:24] LABS: Estimated Average Glucose 134 mg/dL; Hemoglobin A1c % 6.3 % (<6.0)
[2024-10-13 08:42] LABS: Cholesterol 171 mg/dL (<200); Glucose Fasting 107 mg/dL (60-99); HDL Cholesterol 40 mg/dL (>40); LDL Cholesterol Calculated 117 mg/dL (<100); Triglycerides 72 mg/dL (<150)
== END 2024-10-13 07:20 | disposition home or self-care (01) ==
LOC: HO.LAB 07:19
PROVIDERS: PCP Internal Medicine; Visit Provider Internal Medicine
DX: R73.9 Hyperglycemia, unspecified (principal); Z13.6 Encounter for screening for cardiovascular disorders
CPT/HCPCS: 36415; 80061; 82947; 83036

== ENCOUNTER 2024-10-18 09:12 | Outpatient (AMB) | payer MEDICARE, OTHER, SELFPAY ==
[2024-10-18 09:16] VITALS: BP 122/78; PULSE 56; O2SAT 97; BMI 34.2
--- NOTE | 2024-10-18 09:16 | MHC.PC.OV ---
Vital Signs 10/18/24 09:16 Height 5 ft 10 in Weight 238 lb 8 oz BMI 34.2 BP 122/78 Blood Pressure Location Lt brachial Position Sitting Pulse 56 Pulse Source Pulse Oximeter Pulse Oximetry (%) 97 Oxygen Delivery Method Room Air Intake Visit Reasons: 3 Month F/U Market Risk Manager Required: No Accompanied by: Self / Same As Patient Allergies nicotine Allergy (Intermediate, Verified 10/18/24 09:17) Rash fish derived [FISH] Allergy (Unknown, Verified 10/18/24 09:17) ANGIOEDEMA tamsulosin [Flomax] Adverse Reaction (Intermediate, Verified 10/18/24 09:17) nightmares Medication List - Last Reconciled 10/18/24 by Jonathan Campoverde MD albuterol sulfate mg inhalation Q6H PRN albuterol sulfate 90 mcg/actuation inhalation blood sugar diagnostic (FreeStyle Lite Strips) daily blood-glucose meter (FreeStyle Magnolia Lite kit) As directed [custom heat molded multidensity innersoles wear 3 pairs of custom heat molded multidensity innersoles wear] docusate sodium (Stool Softener) 100 mg PO DAILY [extra depth orthopedic shoes with 3 pairs of custom heat molded multidensity innersoles wear] fluticasone propionate 50 mcg/actuation 1 spray intranasal DAILY ggksoerqbpr-gnqutztph-lvhxhfxw 100-62.5-25 mcg (Trelegy Ellipta) 1 ea inhalation DAILY furosemide 40 mg PO QAM glimepiride 1 mg PO DAILY hydrocortisone 2.5% appl topical lancets (FreeStyle Lancets) test daily metformin 1,000 mg PO BID metoprolol succinate ER 50 mg PO DAILY omeprazole 40 mg PO DAILY polyethylene glycol 3350 (Miralax) 17 grams PO DAILY saw palmetto 450 mg PO BID solifenacin 10 mg PO DAILY triamcinolone acetonide 0.1% 1 appl topical BID-TID vitamins A,C,T-llsm-bkrmew 2,148 mcg-113 mg-45 mg-17.4mg (PreserVision AREDS) 1 tab PO BID warfarin 7.5 mg See Protocol PO DAILY MDD 1.5 tablets daily Tobacco use date assessed: 10/18/24 Fall risk assessment: No Falls in past year Last assessed Fall Risk: 10/18/24 Dental Screening Dental Screen Date: 03/17/25 Did you have a dental visit in the last 12 months?: No Did you have a dental problem in the last 6 months where you did not have access to dental care?: No Was dental information given to patient?: No HPI 3 Month F/U HPI Details DM copd and PE on warfarin; compliant and stable [facility] Medical History Severe obesity (BMI 35.0-35.9 with comorbidity) Screening for diabetes mellitus Obesity Hypertension Cardiomyopathy COVID-19 Asthma Surgical History History of surgery History of colonoscopy History of transurethral resection of prostate History of cystoscopy Status post orchiopexy History of eye surgery History of tonsillectomy Family History Father Heart disease Mother Colon cancer Brother No problems noted. Brother No problems noted. Sister No problems noted. Social History Housing: House Alcohol intake: current Alcohol intake frequency: holidays/special occasions only Patient Tobacco Use Status: Former Tobacco user Tobacco use type: Cigarette Years Smoked: 50 e-Cigarette/Vaping Use: Never Used Second Hand Smoke Exposure: Yes service: No Current occupational status: employed and retired Current occupation: retired Cognitive needs: No Hearing needs: No Vision needs: Yes Questionnaire PHQ-9 Over the last 2 weeks, how often have you been bothered by any of the following problems? 1. Little interest or pleasure in doing things: not at all 2. Feeling down, depressed, or hopeless: not at all 3. Trouble falling or staying asleep, or sleeping too much: not at all 4. Feeling tired or having little energy: not at all 5. Poor appetite or overeating: not at all 6. Feeling bad about yourself - or that you are a failure or have let yourself or your family down: not at all 7. Trouble concentrating on things, such as reading the newspaper or watching television: not at all 8. Moving or speaking so slowly that other people could have noticed. Or the opposite - being so fidgety or restless that you have been moving around a lot more than usual: not at all 9. Thoughts that you would be better off or of hurting yourself in some way: not at all Total score: 0 Depression Screening Interpretation: Negative Depression Screening Done: Yes 67838 - PHQ-9 Billing: Yes Source: Developed by Drs. Arnoldo Sarah, Julita Uriostegui, Vega Miller and colleagues, with an educational marisa from [employer] Thrive Questionnaire Date Thrive assessed: 10/18/24 I am a: Patient What is your living situation today?: I have a steady place to live Within the past 12 months, did the food you bought not last and you didn't have the money to get more?: Never true Within the past 12 months, did you worry whether your food would run out before you got money to buy more?: Never true Do you have trouble paying for medicines?: No Do you have trouble getting transportation to medical appointments?: No Do you have trouble paying your heating and electricity bill?: No Do you have trouble taking care of your child, family member or friend?: No Do you have trouble with day-to-day activities such as bathing, preparing meals, shopping, managing finances, etc.?: No Are you currently unemployed and looking for a job?: No Are you interested in more education?: No Please select the resources that you would like help with: None Currently or been in a relationship where the following occur: No concerns reported THRIVE Score: 0 AUDIT C Alcohol Use Questionnaire (AUDIT-C) 1. How often do you have a drink containing alcohol?: Monthly or less 2. How many drinks containing alcohol do you have on a typical day when you are drinking?: 1 or 2 3. How often do you have six or more drinks on one occasion?: Never Total Score: 1 CAYDEN-7 AMB Questionnaire CAYDEN-7 Date CAYDEN - 7 assessed: 10/18/24 Feeling nervous, anxious, or on edge: 0 = Not at all Not being able to stop or control worryin = Not at all Worrying too much about different things: 0 = Not at all Trouble relaxin = Not at all Being so restless that it is hard to sit still: 0 = Not at all Becoming easily annoyed or irritable: 0 = Not at all Feeling afraid as if something awful might happen: 0 = Not at all Total CAYDEN-7 score (0-4 normal; 5-9 mild; 10-14 moderate; 15-21 severe): 0 Source: Developed by Drs. Arnoldo Sarah, Julita Uriostegui, Vega Miller and colleagues, with an educational marisa from [employer] Review of Systems Const Denies chills, Denies headache(s) and Denies weight loss ENT Denies headache(s) Card Denies chest pain, Denies syncope, Denies irregular heart rhythm and Denies dyspnea Resp Denies chest congestion, Denies cough and Denies dyspnea GI Denies abdominal pain, Denies change in stool character, Denies nausea and Denies vomiting Musc Denies deformity and Denies joint swelling Neuro Denies syncope and Denies headache(s) Physical exam (Primary Care) Vital Signs: Last Vital Signs Pulse 56 10/18/24 09:16 BP 122/78 10/18/24 09:16 Pulse Ox 97 10/18/24 09:16 Oxygen Delivery Method Room Air 10/18/24 09:16 BMI result Body Mass Index 34.2 Tobacco/Smoking Status: Tobacco use Status Tobacco use date assessed 10/18/24 10/18/24 09:20 Patient Tobacco Use Status Former Tobacco user 10/18/24 09:20 Tobacco use type Cigarette 10/18/24 09:20 e-Cigarette/Vaping Use Never Used 10/18/24 09:20 PHQ-9: PHQ-9 Score PHQ-9: Total score 0 10/18/24 09:20 Depression Screening Interpretation: Negative Thrive Assessment: Date of Thrive Assessment Date Thrive assessed 10/18/24 10/18/24 09:20 Currently or been in a relationship where the following occur: No concerns reported Const General: cooperative, comfortable, no acute distress and alert Neck Neck: Yes no lymphadenopathy Thyroid: Thyroid normal Resp Effort & Inspection: normal respiratory effort Auscultation: clear to auscultation bilaterally Percussion: percussion normal Cardio Jugular venous distension: no JVD Palpation: normal PMI Rate: regular rate Rhythm: regular rhythm Heart sounds: S1 normal heart sound present and S2 normal heart sound present GI Inspection: Yes normal to inspection Palpation (GI): No hepatosplenomegaly present Skin General skin exam: no rashes or lesions noted Extrem General: Yes no clubbing, cyanosis or edema Coding Level of Care Code Tele Est Pt Level 4 (78521) Diagnoses Diabetes mellitus with coincident hypertension E11.9; I10 Pulmonary embolism I26.99 COPD (chronic obstructive pulmonary disease) J44.9 COPD type: unspecified COPD Additional Codes PHQ-9 - 53007 - PHQ-9 Billing: Yes ([id number]) Assessment & Plan Assessment & Plan (1) Diabetes mellitus with coincident hypertension: Code(s): E11.9 - Type 2 diabetes mellitus without complications; I10 - Essential (primary) hypertension Category: Medical Plan: stable; same rx (2) Pulmonary embolism: Code(s): I26.99 - Other pulmonary embolism without acute cor pulmonale Category: Medical Plan: stable; same rx (3) COPD (chronic obstructive pulmonary disease): Code(s): J44.9 - Chronic obstructive pulmonary disease, unspecified Category: Medical Qualifiers: COPD type: unspecified COPD Qualified Code(s): J44.9 - Chronic obstructive pulmonary disease, unspecified Plan: stable; same rx
== END 2024-10-18 09:35 | disposition home or self-care (01) ==
LOC: HO.HMCH 09:13
PROVIDERS: PCP Internal Medicine; Visit Provider Internal Medicine
DX: E11.9 Type 2 diabetes mellitus without complications (principal); I10 Essential (primary) hypertension; I26.99 Other pulmonary embolism without acute cor pulmonale; J44.9 Chronic obstructive pulmonary disease, unspecified

== ENCOUNTER → 2024-10-18 09:12 | Outpatient (BNVA) | payer MEDICARE, OTHER, SELFPAY | PROVIDERS: PCP Internal Medicine; Visit Provider Internal Medicine | DX: E11.9 Type 2 diabetes mellitus without complications (principal); I10 Essential (primary) hypertension; I26.99 Other pulmonary embolism without acute cor pulmonale; J44.9 Chronic obstructive pulmonary disease, unspecified | CPT/HCPCS: 96127; 99212 ==

== ENCOUNTER 2024-10-22 08:40 | Outpatient (AMB) | payer MEDICARE, OTHER, SELFPAY ==
[2024-10-22 08:50] LABS: ~PT, ~INR - Anti Coag Clinic 2.7 (0.9-1.1)
--- OUTSIDE RECORDS SUMMARY | 2024-10-22 08:54 | XMS_ITS | Patient Health Record ---
Author Organization [facility] Address [address] [place] [address] Care Team Providers Care Wharfmaster Name Role Phone Sandeep Buckley Unavailable [phone] Allergies Allergen (clinical drug ingredient) Drug/Non Drug [...] (HH) 6.3 HEMOGLOBIN A1C (GLYCOHEMOGLO BIN) Reviewed date:10/21/2024 08:30:36 AM Interpretation: Performing Lab: Notes/Report: HEMOGLOBIN A1C % (HH) 6.3 HEMOGLOBIN A1C (GLYCOHEMOGLO BIN) Reviewed date:02/16/2024 10:22:24 AM Interpretation: Performing Lab: Notes/Report: HEMOGLOBIN A1C % (HH) 6 Reason For Referral No Information Medications Medication SIG (Take, Route, Frequency, Duration) Notes Start Date End Date Status Flovent HFA Active Valsartan Not-Taking Coumadin Active Aspir-81 Not-Taking Extra Depth Orthopedic Shoes, (1) Pair With (3) Pair Custom Heat Molded Multidensity Innersoles Dx: 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), Hammertoe Foot Deformity(M20.41,M20.42) , Preulcerative Skin Lesion(s)(L85.1) Wear Daily for 365 days Active Trelegy Ellipta Acti ve Omeprazole Active metFORMIN HCl Active Aspirin 325 MG Orally Not-T aking Glimepiride Active amLODIPine Besylate 10 MG TAKE 1 TABLET BY MOUTH EVERY DAY Oral for 15 Not-Taking Furosemide Active oxyBUTYnin Not-Takin g ProAir HFA 108 (90 Base) MCG/ACT INHALE 2 PUFFS BY MOUTH EVERY 4 HOURS NEEDED Inhalation for 16 Active Solifenacin Succinate 10 MG 1 tablet Once a day Active PreserVision AREDS 2 Active Immunizations Vaccine Route Administration Date Status [...] Problem Acquired hammer toe of right foot (6111684748258 105) Other hammer toe(s) (acquired), right foot (M20.41) Active confirmed Response to treatment,I mprovement Problem Type 2 diabetes mellitus with peripheral angiopathy (129065674) Type 2 diabetes mellitus with diabetic peripheral angiopathy without gangrene (E11.51) Active confirmed Problem Acquired hammer toe of left foot (8141288753342 103) Other hammer toe(s) (acquired), left foot (M20.42) Active confirmed Response to treatment,I mprovement Problem Plantar wart (25918059) Plantar wart (B07.0) Active confirmed Chronic Vital Signs Blood pressure diastolic 70 mm Hg 10/21/2024 Height 5ft 10in in 10/21/2024 Blood pressure systolic 120 mm Hg 10/21/2024 Weight 237 lbs 10/21/2024 BMI 34 kg/m2 10/21/2024 Procedures Procedure Date Ordered Date Performed Result Body Sit e 47773-Kjbe Destruction, 1-14 10/27/2023 N/A 11366-CEPPWAY NAIL, 6 OR MORE 12/01/2023 N/A 52729-Tgjo Destruction, 1-14 12/01/2023 N/A 01361-TKCG SKIN LESIONS, 2 TO 4 12/01/2023 N/A 51886-Apff Destruction, 1-14 01/12/2024 N/A 28081-AYEJCLL NAIL, 6 OR MORE 02/16/2024 N/A 72560-Oung Destruction, 1-14 02/16/2024 N/A 53611-OPOA SKIN LESIONS, 2 TO 4 02/16/2024 N/A 66023-Dhbd Destruction, 1-14 03/18/2024 N/A 98554-RJFYWCM NAIL, 6 OR MORE 04/27/2024 N/A 16564-Dztt Destruction, 1-14 04/27/2024 N/A 00207-QRIL SKIN LESIONS, 2 TO 4 04/27/2024 N/A 99754-Ztfj Destruction, 1-14 06/04/2024 N/A 10941-YDDSMLE NAIL, 6 OR MORE 07/08/2024 N/A 88470-Wmqb Destruction, 1-14 07/08/2024 N/A 44093-ATGZ SKIN LESIONS, 2 TO 4 07/08/2024 N/A 17278-Ukid Destruction, 1-14 08/12/2024 N/A 55542-WPLAQVT NAIL, 6 OR MORE 09/16/2024 N/A 79702-Divz Destruction, 1-14 09/16/2024 N/A 31352-EYWX SKIN LESIONS, 2 TO 4 09/16/2024 N/A 30999-Hnjn Destruction, 1-14 10/21/2024 N/A Encounters Encounter Location Date Provider Diagnosis [facility] [address] [address] 10/27/2023 Sandeep Buckley Right foot pain M79.671 ; Plantar wart B07.0 ; Left foot pain M79.672 ; Other hammer toe(s) (acquired), right foot M20.41 and Other hammer toe(s) (acquired), left foot M20.[address] [address] 12/01/2023 Sandeep Castunier Type 2 diabetes mellitus with diabetic peripheral angiopathy without gangrene E11.51 ; Plantar wart B07.0 ; Tinea unguium B35.1 ; Pain in right toe(s) M79.674 ; Pain in left toe(s) M79.675 ; Pain in right foot M79.671 and Pain in left foot M79.[address] [address] 01/12/2024 Sandeepsanjana CastIna Right foot pain M79.671 ; Plantar wart B07.0 and Left foot pain M79.[address] [address] 02/16/2024 Sandeep Castunier Type 2 diabetes mellitus with diabetic peripheral angiopathy without gangrene E11.51 ; Plantar wart B07.0 ; Tinea unguium B35.1 ; Pain in right toe(s) M79.674 ; Pain in left toe(s) M79.675 ; Pain in right foot M79.671 ; Pain in left foot M79.672 ; Other hammer toe(s) (acquired), right foot M20.41 and Other hammer toe(s) (acquired), left foot M20.[address] [address] 03/18/2024 Sandeepsanjana CastIna Right foot pain M79.671 ; Plantar wart B07.0 and Left foot pain M79.[address] [address] 04/27/2024 Sandeepsanjana CastIna Type 2 diabetes mellitus with diabetic peripheral angiopathy without gangrene E11.51 ; Plantar wart B07.0 ; Tinea unguium B35.1 ; Pain in right toe(s) M79.674 ; Pain in left toe(s) M79.675 ; Pain in right foot M79.671 and Pain in left foot M79.672 [facility] [address] [place] [address] 06/04/2024 Sandeep Ina Right foot pain M79.671 ; Plantar wart B07.0 and Left foot pain M79.[address] [address] 07/08/2024 Sandeep Buckley Type 2 diabetes mellitus with diabetic peripheral angiopathy without gangrene E11.51 ; Plantar wart B07.0 ; Tinea unguium B35.1 ; Pain in right toe(s) M79.674 ; Pain in left toe(s) M79.675 ; Pain in right foot M79.671 and Pain in left foot M79.[address] [address] 08/12/2024 Sandeepsanjana CastIna Right foot pain M79.671 ; Plantar wart B07.0 ; Left foot pain M79.672 ; Other hammer toe(s) (acquired), right foot M20.41 and Other hammer toe(s) (acquired), left foot M20.[address] [address] 09/16/2024 Sandeep Buckley Type 2 diabetes mellitus with diabetic peripheral angiopathy without gangrene E11.51 ; Plantar wart B07.0 ; Tinea unguium B35.1 ; Pain in right toe(s) M79.674 ; Pain in left toe(s) M79.675 ; Pain in right foot M79.671 ; Pain in left foot M79.672 ; Other hammer toe(s) (acquired), right foot M20.41 and Other hammer toe(s) (acquired), left foot M20.[address] [address] 10/21/2024 Sandeep Ina Right foot pain M79.671 ; [...] E11.51) 09/16/2024 Plantar wart (ICD-10 - B07.0) 10/21/2024 Plantar wart (ICD-10 - B07.0) 10/21/2024 Right foot pain (ICD-10 - M79.671) 10/21/2024 Left foot pain (ICD-10 - M79.672) 09/16/2024 Tinea unguium (ICD-10 - B35.1) 08/12/2024 [...] (ICD-10 - M20.42) Response to treatment,Impro vement 10/21/2024 Other Plan Of Treatment Pending Test Test Name Order Date 55798-PXWLRSY NAIL, 6 OR MORE 08/21/2017 36651-LZQEATF NAIL, 6 OR MORE 10/27/2017 57831-QWZIZHZ NAIL, 6 OR MORE 01/15/2018 76814-KZTWOJY NAIL, 6 OR MORE 04/13/2018 78112-RQUGQHW NAIL, 6 OR MORE 07/06/2018 36598-PTSBRTC NAIL, 6 OR MORE 2018 77496-RFFXZSQ NAIL, 6 OR MORE 12/31/2018 41279-NYWDQOI NAIL, 6 OR MORE 03/18/2019 20564-BUSRXEF NAIL, 6 OR MORE 05/27/2019 05673-KYVXQPY NAIL, 6 OR MORE 08/16/2019 39767-IIGJYAE NAIL, 6 OR MORE 10/28/2019 02189-NQWJAKP NAIL, 6 OR MORE 01/17/2020 18447-UBIKKFF NAIL, 6 OR MORE 04/19/2020 04814-QEFOTFF NAIL, 6 OR MORE 07/05/2020 86198-UCWBMJM NAIL, 6 OR MORE 09/21/2020 72715-UBZBRZJ NAIL, 6 OR MORE 12/04/2020 41286-AWVTLOP NAIL, 6 OR MORE 02/15/2021 44887-TULODHA NAIL, 6 OR MORE 04/25/2021 94214-AAPPEFO NAIL, 6 OR MORE 07/05/2021 13297-DIEKGCC NAIL, 6 OR MORE 09/20/2021 28705-METMGEP NAIL, 6 OR MORE 01/09/2022 80670-MOOBCKS NAIL, 6 OR MORE 04/15/2022 99296-ITCAIJX NAIL, 6 OR MORE 07/11/2022 85046-JMMVXOO NAIL, 6 OR MORE 10/03/2022 04218-VWVUTXX NAIL, 6 OR MORE 01/09/2023 77226-EKGPPBV NAIL, 6 OR MORE 03/27/2023 53160-NRPHDNV NAIL, 6 OR MORE 06/23/2023 01510-LRLMRGY NAIL, 6 OR MORE 09/03/2023 72518-BNAPSMI NAIL, 6 OR MORE 12/01/2023 35025-MTJAVRI NAIL, 6 OR MORE 02/16/2024 70491-WHSHULT NAIL, 6 OR MORE 04/27/2024 98603-UHDXTTS NAIL, 6 OR MORE 07/08/2024 73639-UPQVDPG NAIL, 6 OR MORE 09/16/2024 85646-Magd Destruction, -14 09/16/2024 10423-Jpbs Destruction, 14 06/04/2024 50062-Ircc Destruction, 08-1708/12/2024 24158-Groh Destruction, 08-1710/21/2024 85701-Cjha Destruction, 08-1707/08/2024 95155-Btod Destruction, 08-1704/27/2024 40773-Cyof Destruction, 08-1702/16/2024 79746-Pflt Destruction, 08-1701/12/2024 27294-Vqwy Destruction, 08-1703/18/2024 32225-Xplw Destruction, 08-1712/01/2023 77421-Fgpw Destruction, 08-1707/30/2023 30028-Yvpm Destruction, 08-1710/27/2023 67200-Lttn Destruction, 08-1709/03/2023 01072-Oolr Destruction, 08-1706/23/2023 75704-Chmf Destruction, 08-1703/27/2023 38574-Qjma Destruction, 08-1702/20/2023 41104-Usce Destruction, 08-1705/05/2023 69881-Tqpk Destruction, 08-1701/09/2023 72440-Ttdf Destruction, 08-1708/22/2022 43550-Ustl Destruction, 08-1711/18/2022 45073-Xxaz Destruction, 08-1710/03/2022 33010-Lmxj Destruction, 08-1707/11/2022 90104-Tskk Destruction, 08-1704/15/2022 08270-Yxjz Destruction, 08-1705/30/2022 97456-Aafk Destruction, 08-1702/21/2022 54249-Ecsk Destruction, 08-1709/20/2021 28661-Bfjn Destruction, 08-1710/29/2021 39461-Vyks Destruction, 08-1712/05/2021 96476-Nees Destruction, 08-1701/09/2022 93936-Omjj Destruction, 08-1707/05/2021 77456-Ggcg Destruction, 08-1704/25/2021 23568-Gotf Destruction, 08-1705/31/2021 78687-Mgtu Destruction, 08-1702/15/2021 32650-Amuw Destruction, 08-1703/21/2021 58007-Bmfl Destruction, 08-1712/04/2020 06413-Nsrj Destruction, 08-1701/11/2021 26328-Xfkh Destruction, 08-1709/21/2020 97382-Xwwf Destruction, 08-1710/30/2020 64671-Exmr Destruction, 08-1707/05/2020 12166-Reyv Destruction, 08-1708/14/2020 07704-Hpmr Destruction, 08-1704/19/2020 09995-Erdl Destruction, 08-1706/05/2020 48041-Cyjo Destruction, 08-1701/17/2020 84601-Ocdz Destruction, 08-1703/09/2020 53564-Dawx Destruction, 08-1710/28/2019 21185-Qfnl Destruction, 08-1712/09/2019 97426-Yjxx Destruction, 08-1708/16/2019 50346-Vpgs Destruction, 08-1709/22/2019 23932-Jovy Destruction, 08-1705/27/2019 31912-Yggm Destruction, 08-1706/24/2019 99963-Xdzy Destruction, 08-1707/14/2019 54634-Dmaw Destruction, 08-1703/18/2019 75329-Sipn Destruction, 08-1704/19/2019 95357-Rcxe Destruction, 08-1712/31/2018 73480-Abtx Destruction, 08-1702/15/2019 20812-Llon Destruction, 08-1709/28/2018 13622-Pwoh Destruction, 08-1711/19/2018 52993-Gcsd Destruction, 08-1708/17/2018 61489-Ejda Destruction, 08-1705/25/2018 54441-Ecbz Destruction, 08-1707/06/2018 37954-Eosu Destruction, 08-1704/13/2018 40245-Qooi Destruction, 08-1710/27/2017 82212-Tzes Destruction, 08-1708/21/2017 66881-Vuvd Destruction, 08-1701/15/2018 92217- Debride <25 sq cm 12/24/2017 69359- Debride <25 sq cm 12/31/2017 99366-VHRF SKIN LESIONS, 2 TO 4 07/11/20 04707-GHNO SKIN LESIONS, 2 TO 4 10/04/19 07895-QMNM SKIN LESIONS, 2 TO 4 01/10/20 21866-AWQN SKIN LESIONS, 2 TO 4 03/27/20 82874-MNSN SKIN LESIONS, 2 TO 4 06/23/20 03545-PUVD SKIN LESIONS, 2 TO 4 09/03/19 44279-PRAT SKIN LESIONS, 2 TO 4 12/01/19 19472-XXHF SKIN LESIONS, 2 TO 4 02/16/20 66827-GSSB SKIN LESIONS, 2 TO 4 04/27/20 24533-GXMB SKIN LESIONS, 2 TO 4 07/08/20 42247-WUTG SKIN LESIONS, 2 TO 4 09/16/19 56217 - TENOTOMY, OPEN, EXTENSOR 018 Next Appt Details Provider Name:Sandeep Buckley , 11/25/2024 08:30:00 AM, [address] [facility], [address], [place], [address], Insurance Providers Payer Name Payer Address Payer Phone Subscriber Number Group Number Insured Name Patient Relationship to Insured Coverage Start Date Coverage End Date Medicare National Govt [employer] [address] [facility] [place] [address] [id number] Otis Mullen Self - patient is the insured [address] [place] [address] [place] [phone] [id number] Otis Mullen Self - patient is the insured Medical (General) History Medical History History ICD Code asthma Chicken pox Hypertension Measles Mumps Reflux Surgical History Surgery Date(Month/Year) whipple procedure 01/2004 colon 03/22/2015 cataract surgery 06/2018 biopsy prostate 11/2022 lasik 06/20/23 Hospitalization History Reason Date(Month/[facility]) [facility] - Infection 03[facility]12[facility]24 [facility]- Kidney Stones 03/04/24-03/07/24 [facility]- pneumonia, 3 day stay 11/2023 [facility]- kidney stone 03/2022 [facility] admitted [facility] nine days 10/2021 [facility]- covid 07/17-08/03 Cellulitis on lt leg 09/16/2018-09/18/19 19 [facility] Dehydration 05/21/18 & 05/22/18 [facility] 01/07/18-01/10/18
--- OUTSIDE RECORDS SUMMARY | 2024-10-22 08:54 | XMS_ITS ---
Author Organization [facility] Address [address] [place] [address] Care Team Providers Care Loop Machine Operator Name Role Phone Sandeep Buckley Unavailable [phone] Allergies Allergen (clinical drug ingredient) Drug/Non Drug Allergy documented on EMR Reaction Allergy Type Onset Date Status povidone-iodine Betadine anaphylaxis- any Fish Drug Allergy Active tamsulosin Flomax nightmares Drug Allergy Activ e REASON FOR VISIT Wart(s) Medications Medication SIG (Take, Route, Frequency, Duration) Notes Start Date End Date Status Valsartan Not-Taking Aspir-81 Not-Taking Aspirin 325 MG Orally Not-T aking amLODIPine Besylate 10 MG TAKE 1 TABLET BY MOUTH EVERY DAY Oral for 15 Not-Taking oxyBUTYnin Not-Takin g Extra Depth Orthopedic [...] a day Active PreserVision AREDS 2 Active Flovent HFA Active Omeprazole Active metFORMIN HCl Active Glimepiride Active Furosemide Active Coumadin Active Social History Tobacco Use: Social History [...] Negative Vital Signs Height 5ft 10in in 10/21/2024 Weight 237 lbs 10/21/2024 BMI 34 kg/m2 10/21/2024 Blood pressure systolic 120 mm Hg 10/22/19 Blood pressure diastolic 70 mm Hg 025 Procedures Procedure Date Ordered Date Performed Result Body Sit e 39441-Fhka Destruction, -10/21/2024 N/A Encounters Encounter Location Date Provider Diagnosis [facility] [place] [address] [place] [address] 10/21/2024 Sandeep Buckley Right foot pain M79.671 ; Plantar wart B07.0 and Left foot pain M79.672 Assessments Encounter Date Diagnosis (ICD Code) Assessment Notes Treatment Notes Treatment Clinical Notes Section Notes 10/21/2024 Right foot pain (ICD-10 - M79.671) 10/21/2024 Plantar wart (ICD-10 - B07.0) 10/21/2024 Left foot pain (ICD-10 - M79.672) 10/21/2024 Other Plan Of Treatment Pending Test Test Name Order Date 23488-Urwp Destruction, 08-1710/21/2024 Next Appt Details Follow Up: prn, Reason: Provider Name:Sandeep Castunier , 11/25/2024 08:30:00 AM, [address] [address], [place], [address], Procedure Notes * Category Sub-Category Detail Notes Wart Treatment Procedure Verruca, as desc ribed in exam, were debrided to pin- point bleeding margins with sterile 15 surgical blade, silver nitrate chemocautery applied, recomm. immune-boosting meds such as zinc, recomm. follow up with topical chemosurgical agents, Pt defers any other forms of tx - 78956 Progress Notes * Otis MUNOZ JDOB: [birth year] (74 yo M)Acc No.[id number]:10/21/2024 Progress Notes Patient:?Otis MUNOZ Provider:?Sandeep Buckley DPM :1950???Age:74 Y???Sex:Male Adolfo e:10/21/2024 Address:[address] [place], [place] [phone] Subjective: * Chief Complaints: * ???Wart(s) * HPI: ???Skin problems:?Pt States PCP Visit: ?DATE?10/04/2024 * ROS:?General/Constitutional:?Nausea?denies.?Vomiting?denies.?Hunger Thirst?denies.?Loss appetite?denies.?Chills?denies.?Fatigue?denies.?Fever?denies.?Night Sweats?denies.?Unexplained weight loss?denies.?Unexplained [...] * Hospitalization/Major Diagno stic Procedure:?[facility] 01[facility]07[facility]10[facility]18[facility] Dehydration 10/18/18 & 05/22/18Cellulitis on lt leg 09/16/2018-09/18/2018[facility]- covid 07/17-08/03[facility] admitted for nine days 10/2021[facility] [place]- kidney stone - pneumonia, 3 day stay - Kidney Stones 03/04/24-03/07/24[facility] - Infection 03/12/24 * Family History:?Mother: dece [...] * Vitals:?Ht:5ft 10in, Wt:237, BMI:34, Shoe size:10E, BP:120/70mm Hg, BS:116, Ht- cm: 177.8 cm, Wt-k.5 kg. * ???Past Orders: ???Lab:HEMOGLOBIN A1C (GLYCO HEMOGLOBIN) (Order Date - 10/04/2024) (Collection Date & Time - 10/18/2024 08:29 AM) ? Value Reference Range ?HEMOGLOBIN A1C % (HH) 6.3 * Examination: ???Ophthalmology Referral: ?DIABETES EYE EXAM?Procedure Performed:?Yes ?Date of Exam Performed?10/04/2024 ?Diabetic Retinopathy Screening:?Yes ?Retinal Screening Performed:?Yes ?Findings of Diabetic Eye Exam:?no retinopathy?Dermatologic: ?VERRUCA:?STILL, reveals Multiple ( 10 ), multi-loculated , mosaic, round, raised, flat-topped, petechial bleeding papulae(s), with cauliflower appearance and interrruption of skin lines, with pain to lateral compression, and size estimated at 3-4mm diameter, plantar Forefoot, Midfoot, Heel, B/L.? Assessment: * Assessment: 1.?Plantar wart - B07.0 (Gretchen sharif)???Specify :B/L???2.?Right foot pain - M79.671???3.?Left foot pain - M79.672??? Plan: * Treatment: * Procedures:?Wart Treatment:?Procedure?Verruca, as described in exam, were debrided to pin-point bleeding margins with sterile 15 surgical blade, silver nitrate chemocautery applied, recomm. immune-boosting meds such as zinc, recomm. follow up with topical chemosurgical agents, Pt defers any other forms of tx - 37757.? * Procedure Codes:?43639 Wart Destruction, 1-14 * Follow Up:?prn * Images: * Sign off status: Completed true * Provider:?Sandeep Buckley DPM Date:?2024 Generated for Shekhar mata/Adelaide/Jerrod on:?10/22/2024 08:54 AM EDT History and Physical Notes * HPI (History of Present Illness) Category Sub-Category Detail Notes Category Not es Skin problems Pt States PCP Visit: DATE: 10/04/2024 Examination Category Sub-Category Detail Notes Category Not es Dermatologic VERRUCA: STILL, reveals M ultiple ( 10 ), multi-loculated , mosaic, round, raised, flat-topped, petechial bleeding papulae(s), with cauliflower appearance and interrruption of skin lines, with pain to lateral compression, and size estimated at 3-4mm diameter, plantar Forefoot, Midfoot, Heel, B/L Ophthalmology Referral DIABETES EYE EXAM Procedu re Performed:: Yes ?Date of Exam Performed: 10/04/2024 Diabetic Retinopathy Screening:: Yes Retinal Screening Performed:: Yes Findings of Diabetic Eye Exam:: no retin opathy
--- OUTSIDE RECORDS SUMMARY | 2024-10-22 08:54 | XMS_ITS ---
Author Organization [facility] Address [address] [place] [address] Care Team Providers Care Leak Detector Name Role Phone Sandeep Buckley Unavailable [phone] Allergies Allergen (clinical drug ingredient) Drug/Non Drug [...] Ordered Date Performed Result Body Sit e 87391-Pkok Destruction, 1-14 08/12/2024 N/A Encounters Encounter Location Date Provider Diagnosis [facility] [place] [address] [place] [address] 08/12/2024 Sandeep Buckley Right foot pain M79.671 [...] INSTRUCTIONS.pdf) Pending Test Test Name Order Date 10190-Uxoe Destruction, 1-14 08/12/2024 Next Appt Details Follow Up: prn, Reason: Provider Name:Sandeep Ivette Buckley , 11/25/2024 08:30:00 AM, [address], [address], [place], [address], Procedure Notes * Category Sub-Category Detail Notes Wart Treatment Procedure Verruca, as desc ribed in exam, were debrided to pin- point bleeding margins with sterile 15 surgical blade, silver nitrate chemocautery applied, recomm. immune-boosting meds such as zinc, recomm. follow up with topical chemosurgical agents, Pt defers any other forms of tx - 16921 Progress Notes * Otis MUNOZDOB: [birth year] (73 yo M)Acc No.[id number]:08/12/2024 Progress Notes Patient:?Otis MUNOZ Provider:?Sandeep Buckley DPM :1950???Age:73 Y???Sex:Male Adolfo e:08/12/2024 Address:[address] [place] [phone] Pcp:Jonathan Campoverde MD Subjective: * Chief Complaints: [...] & 05/22/18Cellulitis on lt leg 09/16/2018-09/18/2018[facility]- covid 07/17-08/03[facility] [place] for nine days 10[place] - pneumonia, 3 day stay [...] defers any other forms of tx - 12954.? * Procedure Codes:?51524 Wart Destruction, 1-14 * Preventive Medicine:? ??Counseling:?Discussion:?-14: [...]
--- OUTSIDE RECORDS SUMMARY | 2024-10-22 08:54 | XMS_ITS | Clinical Summary ---
Author Organization [facility] Address [address] [place] [address] Care Team Providers Care Retirement Plan Counselor Name Role Phone Unavailable Primary Care Provider [...]
--- NOTE | 2024-10-22 08:55 | MHC.OFFVISCO ---
Intake Intake Visit Reasons: Anticoagulation Allergies nicotine Allergy (Intermediate, Verified 10/22/24 08:45) Rash fish derived [FISH] Allergy (Unknown, Verified 10/22/24 08:45) ANGIOEDEMA tamsulosin [Flomax] Adverse Reaction (Intermediate, Verified 10/22/24 08:45) nightmares Medication List - Last Reconciled 10/22/24 by Marie Shaver, RN albuterol sulfate mg inhalation Q6H PRN albuterol sulfate 90 mcg/actuation inhalation blood sugar diagnostic (FreeStyle Lite Strips) daily blood-glucose meter (FreeStyle [place] Lite kit) As directed [custom heat molded multidensity innersoles wear 3 pairs of custom heat molded multidensity innersoles wear] docusate sodium (Stool Softener) 100 mg PO DAILY [extra depth orthopedic shoes with 3 pairs of custom heat molded multidensity innersoles wear] fluticasone propionate 50 mcg/actuation 1 spray intranasal DAILY gvtjfphkmiy-xozdtlqss-sscrccma 100-62.5-25 mcg (Trelegy Ellipta) 1 ea inhalation DAILY furosemide 40 mg PO QAM glimepiride 1 mg PO DAILY hydrocortisone 2.5% appl topical lancets (FreeStyle Lancets) test daily metformin 1,000 mg PO BID metoprolol succinate ER 50 mg PO DAILY omeprazole 40 mg PO DAILY polyethylene glycol 3350 (Miralax) 17 grams PO DAILY saw palmetto 450 mg PO BID solifenacin 10 mg PO DAILY triamcinolone acetonide 0.1% 1 appl topical BID-TID vitamins A,C,W-qpig-igxmux 2,148 mcg-113 mg-45 mg-17.4mg (PreserVision AREDS) 1 tab PO BID warfarin 7.5 mg See Protocol PO DAILY MDD 1.5 tablets daily Nursing Note INR: 2.7 in therapeutic range of 2-3 Medications and supplements reviewed No changes in health, diet, medications, or supplements, Denies any signs and symptoms of bleeding or bruising or clotting. Bleeding, bruising, clotting discussed Nutritional guidance given Dose: 7.5mg X 4 days and 11.25mg X 3 days (Mon, Wed & Fri) F/U INR: 3 weeks Patient verbalizes understanding of instructions given Anti-Coag Initial Assessment Social Hx Patient Tobacco Use Status: Former Tobacco user Tobacco use type: Cigarette alcohol intake: current Alcohol intake frequency: holidays/special occasions only Cardiovascular Hx: HTN, CHF and Cardiomyopathy Lung Disease HX: Asthma, COPD and DVT/PE Endocrine Hx: Diabetes Blood Disorder Hx: Other GI Hx: Other Cancer HX: No Coding Level of Care Code Est Patient Level 1 Diagnoses Current use of anticoagulant therapy Z79.01 Assessment & Plan Assessment & Plan (1) Current use of anticoagulant therapy: Code(s): 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
--- OUTSIDE RECORDS SUMMARY | 2024-10-22 08:55 | XMS_ITS ---
Author Organization [facility] Address [address] [place] [address] Care Team Providers Care M48 M60 Armor Crewman Name Role Phone Sandeep Buckley Unavailable [phone] Allergies Allergen (clinical drug ingredient) Drug/Non Drug [...] Ordered Date Performed Result Body Sit e 23597-MRVRBZL NAIL, 6 OR MORE 09/16/2024 N/A 98455-Wuuy Destruction, 1-14 09/16/2024 N/A 35013-ZPYL SKIN LESIONS, 2 TO 4 09/16/2024 N/A Encounters Encounter Location Date Provider Diagnosis [facility] [address] [address] 09/16/2024 Sandeep Buckley Type 2 diabetes mellitus [...] Treatment Pending Test Test Name Order Date 01601-KUQNXAL NAIL, 6 OR MORE 09/16/2024 44399-Rouc Destruction, 1-14 09/16/2024 25313-PVIV SKIN LESIONS, 2 TO 4 09/16/19 25 Next Appt Details Follow Up: prn, Reason: Provider Name:Sandeep Buckley , 11/25/2024 08:30:00 AM, [address] [facility], [address], [place], [address], Procedure Notes * Category Sub-Category Detail Notes Wart Treatment Procedure Verruca, as desc ribed in exam, were debrided to pin-point bleeding margins with sterile 15 surgical blade, silver nitrate chemocautery applied, recomm. immune-boosting meds such as zinc, recomm. follow up with topical chemosurgical agents, Pt defers any other forms of tx - 91289 Debride Nail 6-10 Nail debridement Due to [...] use of a nail nipper and/or dremel-type ice grinder, to a more viable healthy nail [...] to maintain effectiveness in symptomatic relief - 59909 Keratoma Treatment Parring or Cutting o f [...] instrumentation by the physician of record - 20529, Q8 Progress Notes * Otis MUNOZDOB: [birth year] (73 yo M)Acc No.[id number]:09/16/2024 Progress Notes Patient:?Otis MUNOZ Provider:?Sandeep Buckley DPM :1950???Age:73 Y???Sex:Male Adolfo e:09/16/2024 Address:[address] [place], [place] [address] Pcp:Jonathan Campoverde MD Subjective: * Chief Complaints: [...] & 05/22/18Cellulitis on lt leg 09/16/2018-09/18/2018[facility]- covid 07/17-08/03[facility] [place] admitted for nine days 10/2021[facility] [place]- kidney stone - pneumonia, 3 day stay - Kidney Stones 03/04/24-03/07/24[facility] [place] - Infection 03/12/24 [...] mellitus with diabetic peripheral angiopathy without gangrene?Procedure: 63993-GEIN SKIN LESIONS, 2 TO 4 3.?Tinea unguium?Procedure: 77891-FDIDIOK NAIL, 6 OR MORE * Procedures:?Debride Nail [...] use of a nail nipper and/or dremel-type ice grinder, to a more viable healthy nail [...] to maintain effectiveness in symptomatic relief - 05326.?Keratoma Treatment:?Parring or Cutting of Benign Hyperkeratotic Lesion(s)?(-56) [...] instrumentation by the physician of record - 50733, Q8.?Wart Treatment:?Procedure?Verruca, as described in exam, were debrided to pin-point bleeding margins with sterile 15 surgical blade, silver nitrate chemocautery applied, recomm. immune-boosting meds such as zinc, recomm. follow up with topical chemosurgical agents, Pt defers any other forms of tx - 62348.? * Procedure Codes:?61067 DEBRI DE NAIL, 6 OR MORE, Modifiers: XS 89688 Wart Destruction, 1-14, Modifiers: XS 98525 TRIM SKIN LESIONS, 2 TO 4, Modifiers: [...]
== END 2024-10-22 08:58 | disposition home or self-care (01) ==
LOC: HO.ACS 08:40
PROVIDERS: PCP Internal Medicine; Visit Provider Internal Medicine Medical Oncology
DX: Z79.01 Long term (current) use of anticoagulants (principal)

== ENCOUNTER → 2024-10-22 08:40 | Outpatient (BNVA) | payer MEDICARE, OTHER, SELFPAY | PROVIDERS: PCP Internal Medicine; Visit Provider Internal Medicine Medical Oncology | DX: I26.99 Other pulmonary embolism without acute cor pulmonale (principal); Z79.01 Long term (current) use of anticoagulants; Z51.81 Encounter for therapeutic drug level monitoring | CPT/HCPCS: 85610; 99211 ==

== ENCOUNTER 2024-11-11 08:39 | Outpatient (AMB) | payer MEDICARE, OTHER, SELFPAY ==
--- OUTSIDE RECORDS SUMMARY | 2024-11-11 08:57 | XMS_ITS | Clinical Summary ---
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
[2024-11-11 09:03] LABS: Prothrombin Time Whole Bld POC 31.7 sec (11.1-13.5); ~PT, ~INR - Anti Coag Clinic 2.6 (0.9-1.1)
--- NOTE | 2024-11-11 09:10 | MHC.OFFVISCO ---
Intake Intake Visit Reasons: Anticoagulation Allergies nicotine Allergy (Intermediate, Verified 11/11/24 08:56) Rash fish derived [FISH] Allergy (Unknown, Verified 11/11/24 08:56) ANGIOEDEMA tamsulosin [Flomax] Adverse Reaction (Intermediate, Verified 11/11/24 08:56) nightmares Medication List - Last Reconciled 11/11/24 by Marie Shaver RN albuterol sulfate mg inhalation Q6H PRN albuterol sulfate 90 mcg/actuation inhalation blood sugar diagnostic (FreeStyle Lite Strips) daily blood-glucose meter (FreeStyle [place] Lite kit) As directed [custom heat molded multidensity innersoles wear 3 pairs of custom heat molded multidensity innersoles wear] docusate sodium (Stool Softener) 100 mg PO DAILY [extra depth orthopedic shoes with 3 pairs of custom heat molded multidensity innersoles wear] fluticasone propionate 50 mcg/actuation 1 spray intranasal DAILY vwqfdzwihhr-eoqihoaot-arhtryok 100-62.5-25 mcg (Trelegy Ellipta) 1 ea inhalation DAILY furosemide 40 mg PO QAM glimepiride 1 mg PO DAILY hydrocortisone 2.5% appl topical lancets (FreeStyle Lancets) test daily metformin 1,000 mg PO BID metoprolol succinate ER 50 mg PO DAILY omeprazole 40 mg PO DAILY polyethylene glycol 3350 (Miralax) 17 grams PO DAILY saw palmetto 450 mg PO BID solifenacin 10 mg PO DAILY triamcinolone acetonide 0.1% 1 appl topical BID-TID vitamins A,C,E-oykw-gfdara 2,148 mcg-113 mg-45 mg-17.4mg (PreserVision AREDS) 1 tab PO BID warfarin 7.5 mg See Protocol PO DAILY MDD 1.5 tablets daily Nursing Note INR: 2.6 in therapeutic range of 2-3 Pt states he has a cold with runny nose & congestion. Yesterday was having shortness of breath and notified his MD. He was prescribed Prednisone taper and azithromycin. This is day one of taking these meds both of which can raise the INR. Medications and supplements reviewed No changes in health, diet, medications, or supplements, Denies any signs and symptoms of bleeding or bruising or clotting. Bleeding, bruising, clotting discussed Nutritional guidance given to increase greens over the next week Dose: 7.5mg X 4 days and 11.25mg X 3 days (M/W/) but next week will lower the Friday dose from 11.25mg to 7.5mg. Pt will also increase his intake of greens over the next week. F/U INR: 1 week on 11/18/24 Patient verbalizes understanding of instructions given Anti-Coag Initial Assessment Social Hx Patient Tobacco Use Status: Former Tobacco user Tobacco use type: Cigarette alcohol intake: current Alcohol intake frequency: holidays/special occasions only Cardiovascular Hx: HTN, CHF and Cardiomyopathy Lung Disease HX: Asthma, COPD and DVT/PE Endocrine Hx: Diabetes Blood Disorder Hx: Other GI Hx: Other Cancer HX: No Coding Level of Care Code Est Patient Level 1 Diagnoses Current use of anticoagulant therapy Z79.01 Results AMB INR Fingerstick AMB INR Fingerstick 2.6 Last Edit by Marie Shaver RN on 11/11/24 09:02 interface delay Assessment & Plan Assessment & Plan (1) Current use of anticoagulant therapy: Code(s): 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
== END 2024-11-11 09:19 | disposition home or self-care (01) ==
LOC: HO.ACS 08:39
PROVIDERS: PCP Internal Medicine; Visit Provider Internal Medicine Medical Oncology
DX: Z79.01 Long term (current) use of anticoagulants (principal)

== ENCOUNTER → 2024-11-11 08:39 | Outpatient (BNVA) | payer MEDICARE, OTHER, SELFPAY | PROVIDERS: PCP Internal Medicine; Visit Provider Internal Medicine Medical Oncology | DX: I26.99 Other pulmonary embolism without acute cor pulmonale (principal); Z79.01 Long term (current) use of anticoagulants; Z51.81 Encounter for therapeutic drug level monitoring | CPT/HCPCS: 85610; 99211 ==

== ENCOUNTER 2024-11-18 08:15 | Outpatient (AMB) | payer MEDICARE, OTHER, SELFPAY ==
--- OUTSIDE RECORDS SUMMARY | 2024-11-18 08:28 | XMS_ITS | Clinical Summary ---
Author Organization [facility] ity Address [address] [place] [address] Care Team Providers Care Business Services Tech Name Role Phone Unavailable Primary Care Provider [...] - 2023-2 5 season) 2024 Influenza Vaccine (Season Ended) 2025 RSV Immunization Adult Patie nts (1 - [...]
--- NOTE | 2024-11-18 08:48 | MHC.OFFVISCO ---
Intake Intake Visit Reasons: Anticoagulation Allergies nicotine Allergy (Intermediate, Verified 11/18/24 08:36) Rash fish derived [FISH] Allergy (Unknown, Verified 11/18/24 08:36) ANGIOEDEMA tamsulosin [Flomax] Adverse Reaction (Intermediate, Verified 11/18/24 08:36) nightmares Medication List - Last Reconciled 11/18/24 by Marie Shaver, RN albuterol sulfate mg inhalation Q6H PRN albuterol sulfate 90 mcg/actuation inhalation blood sugar diagnostic (FreeStyle Lite Strips) daily blood-glucose meter (FreeStyle [place] Lite kit) As directed [custom heat molded multidensity innersoles wear 3 pairs of custom heat molded multidensity innersoles wear] docusate sodium (Stool Softener) 100 mg PO DAILY [extra depth orthopedic shoes with 3 pairs of custom heat molded multidensity innersoles wear] fluticasone propionate 50 mcg/actuation 1 spray intranasal DAILY rgygflmlodt-sjenjszel-ipcgqgsz 100-62.5-25 mcg (Trelegy Ellipta) 1 ea inhalation DAILY furosemide 40 mg PO QAM glimepiride 1 mg PO DAILY hydrocortisone 2.5% appl topical lancets (FreeStyle Lancets) test daily metformin 1,000 mg PO BID metoprolol succinate ER 50 mg PO DAILY omeprazole 40 mg PO DAILY polyethylene glycol 3350 (Miralax) 17 grams PO DAILY saw palmetto 450 mg PO BID solifenacin 10 mg PO DAILY triamcinolone acetonide 0.1% 1 appl topical BID-TID vitamins A,C,E-gtqo-ldjbpt 2,148 mcg-113 mg-45 mg-17.4mg (PreserVision AREDS) 1 tab PO BID warfarin 7.5 mg See Protocol PO DAILY MDD 1.5 tablets daily Nursing Note INR: 1.9?out of therapeutic range of 2-3 Pt increased greens intake while on antibiotics, azithromycin for URI. Also prednisone. completed course of antibx a couple days ago and last dose of prednisone today. Medications and supplements reviewed Patient status: feels better Medications or supplements: no other changes than above mentioned Diet: has had increased greens Denies any signs and symptoms of bleeding or clotting or unusual bruising Bleeding, bruising, clotting discussed Nutritional guidance given: resume usual diet Dose: usual dose of 7.5mg X 4 days and 11.25mg X 3 days (M/W/F) F/U INR Date: 1 week due to possible rise in INR due to antibiotics which could have a delayed effect on the INR?? Patient verbalizing understanding of instructions given. Anti-Coag Initial Assessment Social Hx Patient Tobacco Use Status: Former Tobacco user Tobacco use type: Cigarette alcohol intake: current Alcohol intake frequency: holidays/special occasions only Cardiovascular Hx: HTN, CHF and Cardiomyopathy Lung Disease HX: Asthma, COPD and DVT/PE Endocrine Hx: Diabetes Blood Disorder Hx: Other GI Hx: Other Cancer HX: No Coding Level of Care Code Est Patient Level 1 Diagnoses Current use of anticoagulant therapy Z79.01 Results AMB INR Fingerstick AMB INR Fingerstick 1.9 Last Edit by Marie Shaver RN on 11/18/24 08:47 interface delay Assessment & Plan Assessment & Plan (1) Current use of anticoagulant therapy: Code(s): 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
[2024-11-18 08:49] LABS: Prothrombin Time Whole Bld POC 22.5 sec (11.1-13.5); ~PT, ~INR - Anti Coag Clinic 1.9 (0.9-1.1)
== END 2024-11-18 08:55 | disposition home or self-care (01) ==
LOC: HO.ACS 08:15
PROVIDERS: PCP Internal Medicine; Visit Provider Internal Medicine Medical Oncology
DX: Z79.01 Long term (current) use of anticoagulants (principal)

== ENCOUNTER → 2024-11-18 08:15 | Outpatient (BNVA) | payer MEDICARE, OTHER, SELFPAY | PROVIDERS: PCP Internal Medicine; Visit Provider Internal Medicine Medical Oncology | DX: I26.99 Other pulmonary embolism without acute cor pulmonale (principal); Z79.01 Long term (current) use of anticoagulants; Z51.81 Encounter for therapeutic drug level monitoring | CPT/HCPCS: 85610; 99211 ==

== ENCOUNTER 2024-11-26 08:38 | Outpatient (AMB) | payer MEDICARE, OTHER, SELFPAY ==
--- OUTSIDE RECORDS SUMMARY | 2024-11-26 08:40 | XMS_ITS | Patient Health Record ---
Author Organization [facility] Address [address] [place] [address] Care Team Providers Care Recovery Room Nurse Name Role Phone Stan THOMPSON, [place] Primary Care Provider Sandeep Lees Unavailable [phone] Allergies Allergen (clinical drug ingredient) Drug/Non Drug Allergy documented on EMR Reaction Allergy Type Onset Date Status povidone-iodine Betadine anaphylaxis- any Fish Drug Allergy Active tamsulosin Flomax nightmares Drug Allergy Activ e Results Component Value Reference Range Notes HEMOGLOBIN A1C (GLYCOHEMOGLO BIN) Reviewed date:08/12/2024 08:30:35 AM Interpretation: Performing Lab: Notes/Report: HEMOGLOBIN A1C % (HH) 6.3 HEMOGLOBIN A1C (GLYCOHEMOGLO BIN) Reviewed date:11/25/2024 08:32:18 AM Interpretation: Performing Lab: Notes/Report: HEMOGLOBIN A1C [...] Duration) Notes Start Date End Date Status Solifenacin Succinate 10 MG 1 tablet Once a day Active ProAir HFA 108 (90 Base) MCG/ACT INHALE 2 PUFFS BY MOUTH EVERY 4 HOURS NEEDED Inhalation for 16 Active Trelegy Ellipta Acti ve Extra Depth Orthopedic Shoes, (1) Pair With (3) Pair Custom Heat Molded Multidensity Innersoles Dx: 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), Hammertoe Foot Deformity(M20.41,M20.42) , Preulcerative Skin Lesion(s)(L85.1) Wear Daily for 365 days Active Coumadin Active Aspir-81 Not-Taking Flovent HFA Active Valsartan Not-Taking Furosemide Active oxyBUTYnin Not-Takin g Glimepiride Active amLODIPine Besylate 10 MG TAKE 1 TABLET BY MOUTH EVERY DAY Oral for 15 Not-Taking metFORMIN HCl Active Aspirin 325 MG Orally Not-T aking Omeprazole Active PreserVision AREDS 2 Active Immunizations Vaccine [...] Problem Acquired hammer toe of right foot (7194794532010 105) Other hammer toe(s) (acquired), right foot (M20.41) Active confirmed Response to treatment,I mprovement Problem Type 2 diabetes mellitus with peripheral angiopathy (949404658) Type 2 diabetes mellitus with diabetic peripheral angiopathy without gangrene (E11.51) Active confirmed Problem Acquired hammer toe of left foot (5390347425801 103) Other hammer toe(s) (acquired), left foot (M20.42) Active confirmed Response to treatment,I mprovement Problem Plantar wart (55450694) Plantar wart (B07.0) Active confirmed Chronic Vital Signs Blood pressure diastolic 72 mm Hg 11/25/2024 Height 5ft 10in in 11/25/2024 Blood pressure systolic 127 mm Hg 11/25/2024 Weight 237 lbs 11/25/2024 BMI 34 kg/m2 11/25/2024 Procedures Procedure Date Ordered Date Performed Result Body Sit e 09863-KCZRFLF NAIL, 6 OR MORE 12/01/2023 N/A 46866-Sgkn Destruction, 1-14 12/01/2023 N/A 06729-SIZL SKIN LESIONS, 2 TO 4 12/01/2023 N/A 11384-Xsjf Destruction, 1-14 01/12/2024 N/A 66054-DLKYEMN NAIL, 6 OR MORE 02/16/2024 N/A 91606-Ejuc Destruction, 1-14 02/16/2024 N/A 11283-TQGX SKIN LESIONS, 2 TO 4 02/16/2024 N/A 16287-Pakq Destruction, 1-14 03/18/2024 N/A 08147-IEKLHIL NAIL, 6 OR MORE 04/27/2024 N/A 02955-Uadb Destruction, 1-14 04/27/2024 N/A 95401-FFEY SKIN LESIONS, 2 TO 4 04/27/2024 N/A 84952-Osqq Destruction, 1-14 06/04/2024 N/A 01682-WTFBFDE NAIL, 6 OR MORE 07/08/2024 N/A 66852-Mgep Destruction, 1-14 07/08/2024 N/A 11228-FLTB SKIN LESIONS, 2 TO 4 07/08/2024 N/A 24735-Salf Destruction, 1-14 08/12/2024 N/A 29666-OLMLSYO NAIL, 6 OR MORE 09/16/2024 N/A 20691-Jatm Destruction, 1-14 09/16/2024 N/A 82859-SJAW SKIN LESIONS, 2 TO 4 09/16/2024 N/A 04961-Qieh Destruction, 1-14 10/21/2024 N/A 07659-QEMKUCE NAIL, 6 OR MORE 11/25/2024 N/A 93912-Sktb Destruction, 1-14 11/25/2024 N/A 57358-ULMR SKIN LESIONS, 2 TO 4 11/25/2024 N/A Encounters Encounter Location Date Provider Diagnosis [address] [address] 12/01/2023 Sandeepsanjana CastIna Type 2 diabetes mellitus with diabetic peripheral angiopathy without gangrene E11.51 ; Plantar wart B07.0 ; Tinea unguium B35.1 ; Pain in right toe(s) M79.674 ; Pain in left toe(s) M79.675 ; Pain in right foot M79.671 and Pain in left foot M79.[address] [address] 01/12/2024 Sandeep Ina Right foot pain M79.671 ; Plantar wart B07.0 and Left foot pain M79.[address] [address] 02/16/2024 Sandeepsanjana CastIna Type 2 diabetes mellitus with diabetic peripheral angiopathy without gangrene E11.51 ; Plantar wart B07.0 ; Tinea unguium B35.1 ; Pain in right toe(s) M79.674 ; Pain in left toe(s) M79.675 ; Pain in right foot M79.671 ; Pain in left foot M79.672 ; Other hammer toe(s) (acquired), right foot M20.41 and Other hammer toe(s) (acquired), left foot M20.[address] [address] 03/18/2024 Sandeep Ina Right foot pain M79.671 ; Plantar wart B07.0 and Left foot pain M79.672 [facility] [address] [place] [address] 04/27/2024 Sandeepsanjana CastIna Type 2 diabetes mellitus with diabetic peripheral angiopathy without gangrene E11.51 ; Plantar wart B07.0 ; Tinea unguium B35.1 ; Pain in right toe(s) M79.674 ; Pain in left toe(s) M79.675 ; Pain in right foot M79.671 and Pain in left foot M79.672 [facility] [address] [place] [address] 06/04/2024 Sandeepsanjana CastIna Right foot pain M79.671 ; Plantar wart B07.0 and Left foot pain M79.[address] [address] 07/08/2024 Sandeep Buckley Type 2 diabetes mellitus with diabetic peripheral angiopathy without gangrene E11.51 ; Plantar wart B07.0 ; Tinea unguium B35.1 ; Pain in right toe(s) M79.674 ; Pain in left toe(s) M79.675 ; Pain in right foot M79.671 and Pain in left foot M79.[address] [address] 08/12/2024 Sandeepsanjana CastIna Right foot pain M79.671 ; Plantar wart B07.0 ; Left foot pain M79.672 ; Other hammer toe(s) (acquired), right foot M20.41 and Other hammer toe(s) (acquired), left foot M20.[address] [address] 09/16/2024 Sandeep Buckley Type 2 diabetes mellitus with diabetic peripheral angiopathy without gangrene E11.51 ; Plantar wart B07.0 ; Tinea unguium B35.1 ; Pain in right toe(s) M79.674 ; Pain in left toe(s) M79.675 ; Pain in right foot M79.671 ; Pain in left foot M79.672 ; Other hammer toe(s) (acquired), right foot M20.41 and Other hammer toe(s) (acquired), left foot M20.[address] [address] 10/21/2024 Sandeepsanjana Buckley Right foot pain M79.671 ; Plantar wart B07.0 and Left foot pain M79.[address] [address] 11/25/2024 Sandeep Buckley Type 2 diabetes mellitus with diabetic peripheral angiopathy without gangrene E11.51 ; Plantar wart B07.0 ; Tinea unguium B35.1 ; Pain in right toe(s) M79.674 ; Pain in left toe(s) M79.675 ; Pain in right foot M79.671 and Pain in left foot M79.672 Assessments Encounter Date Diagnosis (ICD Code) Assessment Notes Treatment Notes Treatment Clinical Notes Section Notes 12/01/2023 Type 2 diabetes mellitus with diabetic peripheral angiopathy without gangrene (ICD-10 - E11.51) 12/01/2023 Plantar wart (ICD-10 - B07.0) 01/12/2024 Plantar wart (ICD-10 - B07.0) 01/12/2024 Right foot pain (ICD-10 - M79.671) 02/16/2024 Type 2 diabetes mellitus with diabetic [...] 10/21/2024 Right foot pain (ICD-10 - M79.671) 11/25/2024 Type 2 diabetes mellitus with diabetic peripheral angiopathy without gangrene (ICD-10 - E11.51) 11/25/2024 Plantar wart (ICD-10 - B07.0) 11/25/2024 Tinea unguium (ICD-10 - B35.1) 10/21/2024 Left foot pain (ICD-10 - M79.672) 09/16/2024 Tinea unguium (ICD-10 - B35.1) 08/12/2024 Left foot pain (ICD-10 - M79.672) 07/08/2024 Tinea unguium (ICD-10 - B35.1) 06/04/2024 Left foot pain (ICD-10 - M79.672) 04/27/2024 Tinea unguium (ICD-10 - B35.1) 03/18/2024 Left foot pain (ICD-10 - M79.672) 02/16/2024 Tinea unguium (ICD-10 - B35.1) 01/12/2024 Left foot pain (ICD-10 - M79.672) 12/01/2023 Tinea unguium (ICD-10 - B35.1) 12/01/2023 Pain in right toe(s) (ICD-10 - M79.674) 02/16/2024 Pain in right toe(s) (ICD-10 - M79.674) 07/08/2024 Pain in right toe(s) (ICD-10 - M79.674) 08/12/2024 Other hammer toe(s) (acquired), right foot (ICD-10 - M20.41) Patient Educated with: DIABETIC FOOT CARE INSTRUCTIONS.p df (DIABETIC FOOT CARE INSTRUCTIONS.p df) 04/27/2024 Pain in right toe(s) (ICD-10 - M79.674) 09/16/2024 Pain in right toe(s) (ICD-10 - M79.674) 11/25/2024 Pain in right toe(s) (ICD-10 - M79.674) 11/25/2024 Pain in left toe(s) (ICD-10 - M79.675) 09/16/2024 Pain in left toe(s) (ICD-10 - M79.675) 08/12/2024 Other hammer toe(s) (acquired), left foot (ICD-10 - M20.42) 02/16/2024 Pain in left toe(s) (ICD-10 - M79.675) 04/27/2024 Pain in left toe(s) (ICD-10 - M79.675) 07/08/2024 Pain in left toe(s) (ICD-10 - M79.675) 12/01/2023 Pain in left toe(s) (ICD-10 - M79.675) 12/01/2023 Pain in right foot (ICD-10 - M79.671) 02/16/2024 Pain in right foot (ICD-10 - M79.671) 07/08/2024 Pain in right foot (ICD-10 - M79.671) 04/27/2024 Pain in right foot (ICD-10 - M79.671) 09/16/2024 Pain in right foot (ICD-10 - M79.671) 11/25/2024 Pain in right foot (ICD-10 - M79.671) 11/25/2024 Pain in left foot (ICD-10 - M79.672) 09/16/2024 Pain in left foot (ICD-10 - [...] Treatment Pending Test Test Name Order Date 06052-DAUZZRM NAIL, 6 OR MORE 08/21/2017 49403-LGXPBGP NAIL, 6 OR MORE 10/27/2017 70227-ZUIFTZN NAIL, 6 OR MORE 01/15/2018 95729-KNZXEMU NAIL, 6 OR MORE 04/13/2018 39623-SVXNSFP NAIL, 6 OR MORE 07/06/2018 21228-DBDTXAP NAIL, 6 OR MORE 2018 01223-LSNAZUX NAIL, 6 OR MORE 12/31/2018 89540-XUHRJKH NAIL, 6 OR MORE 03/18/2019 10764-MAPBPHV NAIL, 6 OR MORE 05/27/2019 49843-CRFTHCN NAIL, 6 OR MORE 08/16/2019 36639-RGPHEZZ NAIL, 6 OR MORE 10/28/2019 28007-VIHOOMX NAIL, 6 OR MORE 01/17/2020 99524-ABZNIMO NAIL, 6 OR MORE 04/19/2020 90197-SSUGYCY NAIL, 6 OR MORE 07/05/2020 75267-PPJUQJQ NAIL, 6 OR MORE 09/21/2020 96688-TZZTUHP NAIL, 6 OR MORE 12/04/2020 56782-WKYHZBU NAIL, 6 OR MORE 02/15/2021 97693-TYPZCIZ NAIL, 6 OR MORE 04/25/2021 53133-RUPKIXY NAIL, 6 OR MORE 07/05/2021 22208-CESKCIQ NAIL, 6 OR MORE 09/20/2021 50392-VVEQLBV NAIL, 6 OR MORE 01/09/2022 43342-VNWCDYY NAIL, 6 OR MORE 04/15/2022 28245-UEMXHAT NAIL, 6 OR MORE 07/11/2022 37128-WZZJWBT NAIL, 6 OR MORE 10/03/2022 93308-QGLGSKI NAIL, 6 OR MORE 01/09/2023 19860-OTETZOQ NAIL, 6 OR MORE 03/27/2023 07584-MUVMFYV NAIL, 6 OR MORE 06/23/2023 41943-NXVHAPS NAIL, 6 OR MORE 09/03/2023 66130-ZWVGFPT NAIL, 6 OR MORE 12/01/2023 88613-AMGFNHK NAIL, 6 OR MORE 02/16/2024 21648-SAQQVRV NAIL, 6 OR MORE 04/27/2024 26003-OSLKROW NAIL, 6 OR MORE 07/08/2024 50827-NDKTPYV NAIL, 6 OR MORE 09/16/2024 20506-FQLYAXS NAIL, 6 OR MORE 11/25/2024 91212-Tufo Destruction, 1-14 11/25/2024 59305-Mssx Destruction, -14 10/21/2024 04221-Wlkr Destruction, -14 09/16/2024 86036-Leob Destruction, -14 06/04/2024 40422-Sgub Destruction, -14 08/12/2024 38928-Tweb Destruction, -14 07/08/2024 20929-Rkro Destruction, -14 04/27/2024 75961-Mgck Destruction, -14 02/16/2024 19504-Tnrq Destruction, -14 01/12/2024 35339-Nngo Destruction, -14 03/18/2024 61573-Dbsd Destruction, -14 12/01/2023 00659-Vnes Destruction, -14 07/30/2023 80393-Uyiv Destruction, -14 10/27/2023 91857-Poyt Destruction, -14 09/03/2023 60056-Hlao Destruction, -14 06/23/2023 72476-Wvcl Destruction, -14 03/27/2023 80792-Wxsm Destruction, -14 02/20/2023 41654-Wvqd Destruction, -14 05/05/2023 11240-Gsda Destruction, -14 01/09/2023 11847-Brgh Destruction, -14 08/22/2022 71014-Motm Destruction, -11/18/2022 68885-Ncyz Destruction, -14 10/03/2022 51467-Zesg Destruction, -14 07/11/2022 17918-Xdth Destruction, -04/15/2022 87004-Ahco Destruction, 08-1705/30/2022 26859-Xorv Destruction, 08-1702/21/2022 88847-Ztml Destruction, 08-1709/20/2021 88590-Ueld Destruction, 08-1710/29/2021 54736-Puhg Destruction, 08-1712/05/2021 31793-Pmiy Destruction, 08-1701/09/2022 57924-Bvpe Destruction, 08-1707/05/2021 71543-Heiw Destruction, 08-1704/25/2021 89983-Mqpi Destruction, 08-1705/31/2021 51098-Lnxx Destruction, 08-1702/15/2021 98631-Gdiv Destruction, 08-1703/21/2021 79026-Olzy Destruction, 08-1712/04/2020 81465-Pvun Destruction, 08-1701/11/2021 44169-Hbim Destruction, 08-1709/21/2020 09265-Lemb Destruction, 08-1710/30/2020 05200-Txvr Destruction, 08-1707/05/2020 33247-Fjug Destruction, 08-1708/14/2020 01785-Zxzk Destruction, 08-1704/19/2020 97034-Gxlu Destruction, 08-1706/05/2020 09939-Bpia Destruction, 08-1701/17/2020 35791-Egof Destruction, 08-1703/09/2020 55320-Yyjd Destruction, 08-1710/28/2019 64924-Rysv Destruction, 08-1712/09/2019 54951-Asmw Destruction, 08-1708/16/2019 36154-Umpz Destruction, 08-1709/22/2019 15036-Nxzb Destruction, 08-1705/27/2019 67198-Jpnt Destruction, 08-1706/24/2019 24897-Vdne Destruction, 08-1707/14/2019 70758-Bmfn Destruction, 08-1703/18/2019 73057-Dbye Destruction, 08-1704/19/2019 47339-Hhvp Destruction, 08-1712/31/2018 65643-Jepk Destruction, 08-1702/15/2019 72342-Zheg Destruction, 08-1709/28/2018 06659-Nwss Destruction, 08-1711/19/2018 44266-Dsrv Destruction, 08-1708/17/2018 86459-Hxcb Destruction, 08-1705/25/2018 46915-Iiwj Destruction, 08-1707/06/2018 14301-Crvi Destruction, 08-1704/13/2018 26056-Hpaf Destruction, 08-1710/27/2017 28922-Nkrv Destruction, 08-1708/21/2017 38396-Inbt Destruction, 08-1701/15/2018 46829- Debride <25 sq cm 12/24/2017 71934- Debride <25 sq cm 12/31/2017 17212-QSWK SKIN LESIONS, 2 TO 4 07/11/20 78660-YTPH SKIN LESIONS, 2 TO 4 10/04/19 23 25970-CBPL SKIN LESIONS, 2 TO 4 01/10/20 23 04861-BPWU SKIN LESIONS, 2 TO 4 03/27/20 23 48260-LQJS SKIN LESIONS, 2 TO 4 06/23/20 23 57428-GBFW SKIN LESIONS, 2 TO 4 09/03/19 24 99301-ORTS SKIN LESIONS, 2 TO 4 12/01/19 24 91434-GUBD SKIN LESIONS, 2 TO 4 02/16/20 24 74139-BCNJ SKIN LESIONS, 2 TO 4 04/27/20 24 77799-CSDM SKIN LESIONS, 2 TO 4 07/08/20 24 46878-LLGF SKIN LESIONS, 2 TO 4 09/16/19 25 65148-ARFM SKIN LESIONS, 2 TO 4 11/26/19 25 80191 - TENOTOMY, OPEN, EXTENSOR 018 Next Appt Details Provider Name:Sandeep Buckley , 01/06/2025 08:30:00 AM, [facility], [address], [address], Provider Name:Sandeep Buckley , 02/10/2025 08:30:00 AM, [facility], [place] [address], [place], [address], Insurance Providers Payer Name Payer Address Payer Phone Subscriber Number Group Number Insured Name Patient Relationship to Insured Coverage Start Date Coverage End Date Medicare [employer] [address] [place] [address] [id number] Otis Mullen Self - patient is the insured [address] [place] [address] SATH[place] Meyer [phone] [id number] Otis Mullen Self - patient is the insured Medical (General) History Medical History History ICD Code asthma Chicken pox Hypertension Measles Mumps Reflux Surgical History Surgery Date(Month/Year) whipple procedure 01/2004 colon 03/22/2015 cataract surgery 06/2018 biopsy prostate 11/2022 lasik 06/20/23 Hospitalization History Reason Date(Month/Year) [facility] - Infection 03[facility]12[facility]24 [facility]- Kidney Stones 03/04/24-03/07/24 [facility]- pneumonia, 3 day stay 11/2023 [facility]- kidney stone 03/2022 [facility] nine days 10/2021 [facility]- covid 07/17-08/03 Cellulitis on lt leg 09/16/2018-09/18/19 19 [facility] Dehydration 05/21/18 & 05/22/18 [facility] 01/07/18-01/10/18
--- OUTSIDE RECORDS SUMMARY | 2024-11-26 08:40 | XMS_ITS ---
Author Organization [facility] Address [address] [place] [address] Care Team Providers Care Electronic Security Specialist Name Role Phone Stan THOMPSON, [place] Primary Care Provider Sandeep Lees Unavailable [phone] Allergies Allergen (clinical drug ingredient) Drug/Non Drug Allergy documented on EMR Reaction Allergy Type Onset Date Status povidone-iodine Betadine anaphylaxis- any Fish Drug Allergy Active tamsulosin Flomax nightmares Drug Allergy Activ e REASON FOR VISIT At Risk Footcare, Painful Nail(s) aggrevated by shoes and causing difficulty standing/walking, Wart(s) Medications Medication SIG (Take, Route, Frequency, Duration) Notes Start Date End Date Status Coumadin Active Flovent HFA Active Furosemide Active Glimepiride Active metFORMIN HCl Active Aspir-81 Not-Taking Valsartan Not-Taking oxyBUTYnin Not-Takin g amLODIPine Besylate 10 MG TAKE 1 TABLET BY MOUTH EVERY DAY Oral for 15 Not-Taking Aspirin 325 MG Orally Not-T aking Solifenacin Succinate 10 MG 1 tablet Once a day Active ProAir HFA 108 (90 Base) MCG/ACT INHALE 2 PUFFS BY MOUTH EVERY 4 HOURS NEEDED Inhalation for 16 Active Trelegy Ellipta Acti ve Extra Depth Orthopedic Shoes, (1) Pair With (3) Pair Custom Heat Molded Multidensity Innersoles Dx: 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), Hammertoe Foot Deformity(M20.41,M20.42) , Preulcerative Skin Lesion(s)(L85.1) Wear Daily for 365 days Active PreserVision AREDS 2 Active Omeprazole Active Social History Tobacco Use: [...] Negative Vital Signs Height 5ft 10in in 11/25/2024 Weight 237 lbs 11/25/2024 BMI 34 kg/m2 11/25/2024 Blood pressure systolic 127 mm Hg 11/26/19 25 Blood pressure diastolic 72 mm Hg 025 Procedures Procedure Date Ordered Date Performed Result Body Sit e 46850-NUWLERC NAIL, 6 OR MORE 11/25/2024 N/A 78642-Mvub Destruction, 1-14 11/25/2024 N/A 74513-QOED SKIN LESIONS, 2 TO 4 11/25/2024 N/A Encounters Encounter Location Date Provider Diagnosis [facility] [address] [address] 11/25/2024 Sanedep Buckley Type 2 diabetes mellitus with diabetic peripheral angiopathy without gangrene E11.51 ; Plantar wart B07.0 ; Tinea unguium B35.1 ; Pain in right toe(s) M79.674 ; Pain in left toe(s) M79.675 ; Pain in right foot M79.671 and Pain in left foot M79.672 Assessments Encounter Date Diagnosis (ICD Code) Assessment Notes Treatment Notes Treatment Clinical Notes Section Notes 11/25/2024 Type 2 diabetes mellitus with diabetic peripheral angiopathy without gangrene (ICD-10 - E11.51) 11/25/2024 Plantar wart (ICD-10 - B07.0) 11/25/2024 Tinea unguium (ICD-10 - B35.1) 11/25/2024 Pain in right toe(s) (ICD-10 - M79.674) 11/25/2024 Pain in left toe(s) (ICD-10 - M79.675) 11/25/2024 Pain in right foot (ICD-10 - M79.671) 11/25/2024 Pain in left foot (ICD-10 - M79.672) Plan Of Treatment Pending Test Test Name Order Date 80002-QBWEZAR NAIL, 6 OR MORE 11/25/2024 68159-Cwth Destruction, 1-14 11/25/2024 27752-MQWY SKIN LESIONS, 2 TO 4 11/26/19 25 Next Appt Details Follow Up: prn, Reason: Provider Name:Sandeep Buckley , 01/06/2025 08:30:00 AM, [address] [facility], [address] [facility], [place], [address], Provider Name:Sandeep Buckley , 02/10/2025 08:30:00 AM, [address] [facility], [place] [address], [place], [address], Procedure Notes * Category Sub-Category Detail Notes Wart Treatment Procedure Verruca, as desc ribed in exam, were debrided to pin-point bleeding margins with sterile 15 surgical blade, silver nitrate chemocautery applied, recomm. immune-boosting meds such as zinc, recomm. follow up with topical chemosurgical agents, Pt defers any other forms of tx - 93981 Debride Nail 6-10 Nail debridement Due to the cl inical pathology outlined in the exam findings, performance of this nail treatment is medically necessary as its management by an unskilled/untrained nonprofessional would put this patients foot and overall health at risk. Therefore, debridement to affected nail(s), as described in exam ( T1, T2, T3, T4, T6, T7, T8, T9 ), was performed exclusively by the physician of record to reduce/remove overall nail length, girth, thickness, subungual debris, and necrotic tissue, by manual and/or electrical means through the use of a nail nipper and/or dremel-type disk grinder, to a more viable healthy nail [...] at risk. Therefore, the benign hyperkeratotic lesions, (4) in total, locations as stated and described in the exam ( Medial plantar, IPJ, TA, Medial plantar, IPJ, T5, SUB MTH (s), 1, B/L ), were pared, and/or cut utilizing a sterile 15 blade, tissue nippers, and/or power dremel instrumentation by the physician of record - 31591, Q8 Progress Notes * Oits MUNOZDOB: [birth year] (74 yo M)Acc No.[id number]:11/25/2024 Progress Note Patient:?JOSIAHLYDIA Otis Jimbo Provider:?Sandeep Buckley DPM :1950???Age:74 Y???Sex:Male Adolfo e:11/25/2024 Address:[address] [place], [place] [id number] Pcp:Tito Pierce MD Subjective: * Chief Complaints: * ???At Risk FootcarePainful N ail(s) aggrevated by shoes and causing difficulty standing/walkingWart(s) * HPI: ???At Risk footcare:?Pt States Last PCP Visit:?Date?10/04/2024 * ROS:?General/Constitutional:?Nausea?denies.?Vomiting?denies.?Hunger Thirst?denies.?Loss appetite?denies.?Chills?denies.?Fatigue?denies.?Fever?denies.?Night Sweats?denies.?Unexplained weight loss?denies.?Unexplained [...] 09/16/2018-09/18/2018[facility]- [facility] 07/17-08[facility]03[facility] admitted for nine days 10/2021[facility]- kidney stone - pneumonia, 3 day stay [...] 10in, Wt:237 , BMI:34, Shoe size: 10E, BP:127/72mm Hg, BS: 117, Ht-cm: 177.8 cm, Wt-k.5 kg. * ???Past Orders: ???Lab:HEMOGLOBIN A1C (GLYCO HEMOGLOBIN) (Order Date - 10/02/2024) (Collection Date & Time - 10/05/2024 08:31 AM) ? Value Reference Range ?HEMOGLOBIN A1C % (HH) 6.3 * Examination: ???Ophthalmology Referral: ?DIABETES EYE EXAM?Procedure Performed:?Yes ?Date of Exam Performed?09/29/2024 ?Diabetic Retinopathy Screening:?Yes ?Retinal Screening Performed:?Yes ?Findings of Diabetic Eye Exam:?no retinopathy?Vascular: ?DP PULSES (B):? 0/4, LEFT, 1/4, RIGHT.?PT [...] T7, T8, T9,Absent nail plate, TA, and T5.?Dermatologic: ?SKIN FINDINGS:?Skin exam reveals Keratotic lesion(s) located [...] with diabetic peripheral angiopathy without gangrene - E11.51???Specify :Q8???2.?Plantar wart - B07.0 (Primary)???Specify :B/L???3.?Tinea unguium - B35.1???4.?Pain in right toe(s) - M79.674???5.?Pain in left toe(s) - M79.675???6.?Pain in right foot - M79.671???7.?Pain in left foot - M79.672??? Plan: * Treatment: 2.?Type 2 diabetes mellitus with diabetic peripheral angiopathy without gangrene?Procedure: 23641-BEQF SKIN LESIONS, 2 TO 4 3.?Tinea unguium?Procedure: 56138-LSRTNHT NAIL, 6 OR MORE * Procedures:?Debride Nail 6-10:?Nail debridement?Due to the clinical pathology outlined in the exam findings, performance of this nail treatment is medically necessary as its management by an unskilled/untrained nonprofessional would put this patients foot and overall health at risk. Therefore, debridement to affected nail(s), as described in exam ( T1, T2, T3, T4, T6, T7, T8, T9 ), was performed exclusively by the physician of record to reduce/remove overall nail length, girth, thickness, subungual debris, and necrotic tissue, by manual and/or electrical means through the use of a nail nipper and/or dremel-type disk grinder, to a more viable healthy nail [...] to maintain effectiveness in symptomatic relief - 46998.?Keratoma Treatment:?Parring or Cutting of Benign Hyperkeratotic Lesion(s)?(-56) 2-4 Lesions - Due to the at risk nature of the patients medical condition as documented in the exam findings, performance of this keratoderma treatment is medically necessary as its management by an unskilled/untrained nonprofessional would put this patients foot and overall health at risk. Therefore, the benign hyperkeratotic lesions, (4) in total, locations as stated and described in the exam ( Medial plantar, IPJ, TA, Medial plantar, IPJ, T5, SUB MTH (s), 1, B/L ), were pared, and/or cut utilizing a sterile 15 blade, tissue nippers, and/or power dremel instrumentation by the physician of record - 99498, Q8.?Wart Treatment:?Procedure?Verruca, as described in exam, were debrided to pin-point bleeding margins with sterile 15 surgical blade, silver nitrate chemocautery applied, recomm. immune-boosting meds such as zinc, recomm. follow up with topical chemosurgical agents, Pt defers any other forms of tx - 65555.? * Procedure Codes:?36155 DEBRI DE NAIL, 6 OR MORE, Modifiers: XS 74560 Wart Destruction, 1-14, Modifiers: XS 74720 TRIM SKIN LESIONS, 2 TO 4, Modifiers: XS , Q8 * Follow Up:?prn * Images: * Sign off status: Completed true * Provider:?Sandeep Buckley DPM Date:?2024 Generated for Shekhar mata/[place]/eTransmitting on:?11/26/2024 08:40 AM EDT History and Physical Notes * [...] Heel, B/L Ophthalmology Referral DIABETES EYE EXAM Procedure Perform ed:: Yes ?Date of Exam Performed: 09/29/2024 Diabetic Retinopathy Screening:: Yes Retinal Screening Performed:: [...]
--- OUTSIDE RECORDS SUMMARY | 2024-11-26 08:40 | XMS_ITS ---
Author Organization [facility] Address [address] [place] [address] Care Team Providers Care Boat Engines Installer Name Role Phone Stan THOMPSON, [place] Primary Care Provider Sandeep Lees Unavailable [phone] Allergies Allergen (clinical drug ingredient) Drug/Non Drug [...] Blood pressure systolic 120 mm Hg 10/22/19 25 Blood pressure diastolic 70 mm Hg 025 Procedures Procedure Date Ordered Date Performed Result Body Sit e 24489-Eujo Destruction, 1-14 10/21/2024 N/A Encounters Encounter Location Date Provider Diagnosis [facility] [address] [address] 10/21/2024 Sandeep Buckley Right foot pain M79.671 ; Plantar wart B07.0 and Left foot pain M79.672 Assessments Encounter Date Diagnosis (ICD Code) Assessment Notes Treatment Notes Treatment Clinical Notes Section Notes 10/21/2024 Right foot pain (ICD-10 - M79.671) 10/21/2024 Plantar wart (ICD-10 - B07.0) 10/21/2024 Left foot pain (ICD-10 - M79.672) 10/21/2024 Other Plan Of Treatment Pending Test Test Name Order Date 58834-Iine Destruction, -10/21/2024 Next Appt Details Follow Up: prn, Reason: Provider Name:Sandeep Buckley , 01/06/2025 08:30:00 AM, [address] [place] [address], [phone], Provider Name:Sandeep Buckley , 02/10/2025 08:30:00 AM, [address] [place] [address], [phone], Procedure Notes * Category Sub-Category Detail Notes Wart Treatment Procedure Verruca, as desc ribed in exam, were debrided to pin- point bleeding margins with sterile 15 surgical blade, silver nitrate chemocautery applied, recomm. immune-boosting meds such as zinc, recomm. follow up with topical chemosurgical agents, Pt defers any other forms of tx - 19510 Progress Notes * Otis MUNOZDOB: [birth year] (74 yo M)Acc No.[id number]:10/21/2024 Progress Notes Patient:Otis HOPE Provider:?Sandeep Buckley DPM :1950???Age:74 Y???Sex:Male Adolfo e:10/21/2024 Address:[address] [place], [place] [address], [id number] Subjective: * Chief Complaints: * ???Wart(s) * [...] & 05/22/18Cellulitis on lt leg 09/16/2018-09/18/2018BM- covid 07/17-08/03BM admitted for nine days 10/2021[facility] [place]- kidney stone - pneumonia, 3 day stay - Kidney Stones 03/04/24-03/07/24[facility] [place] - Infection 03/12/24 * Family History:?Mother: dece [...] defers any other forms of tx - 58361.? * Procedure Codes:?21288 Wart Destruction, 1-14 * Follow Up:?prn * Images: * Sign off status: Completed true * Provider:?Sandeep Buckley DPM Date:?2024 Generated for Shekhar mata/Adelaide/eTannabelle on:?11/26/2024 08:40 AM EDT History and Physical [...]
--- OUTSIDE RECORDS SUMMARY | 2024-11-26 08:41 | XMS_ITS ---
Author Organization [facility] Address [address] [place] [address] Care Team Providers Care Production Line Welder Name Role Phone Stan THOMPSON, [place] Primary Care Provider Sandeep Lees Unavailable [phone] Allergies Allergen (clinical drug ingredient) Drug/Non Drug [...] Ordered Date Performed Result Body Sit e 63869-DWZBOLG NAIL, 6 OR MORE 09/16/2024 N/A 79216-Pmab Destruction, 1-14 09/16/2024 N/A 01554-YRXY SKIN LESIONS, 2 TO 4 09/16/2024 N/A Encounters Encounter Location Date Provider Diagnosis [facility] [place] [address] [place] [phone] 09/16/2024 Sandeep Buckley Type 2 diabetes mellitus [...] Treatment Pending Test Test Name Order Date 51505-QTJRQJM NAIL, 6 OR MORE 09/16/2024 26388-Kdpw Destruction, 1-14 09/16/2024 84245-VKSE SKIN LESIONS, 2 TO 4 09/16/19 Next Appt Details Follow Up: prn, Reason: Provider Name:Sandeep Buckley , 01/06/2025 08:30:00 AM, [facility], [address], [phone], Provider Name:Sandeep Buckley , 02/10/2025 08:30:00 AM, [facility], [address], [phone], Procedure Notes * Category Sub-Category Detail Notes Wart Treatment Procedure Verruca, as desc ribed in exam, were debrided to pin-point bleeding margins with sterile 15 surgical blade, silver nitrate chemocautery applied, recomm. immune-boosting meds such as zinc, recomm. follow up with topical chemosurgical agents, Pt defers any other forms of tx - 10692 Debride Nail 6-10 Nail debridement Due to [...] to maintain effectiveness in symptomatic relief - 87944 Keratoma Treatment Parring or Cutting o f [...] instrumentation by the physician of record - 03783, Q8 Progress Notes * Otis MUNOZDOB: [birth year] (73 yo M)Acc No.[id number]:09/16/2024 Progress Notes Patient:?Otis MUNOZ Provider:?Sandeep Buckley DPM :1950???Age:73 Y???Sex:Male Adolfo e:09/16/2024 Address:[address] [place] [id number] Pcp:Jonathan Campoverde MD Subjective: * Chief Complaints: [...] & 05/22/18Cellulitis on lt leg 09/16/2018-09/18/2018BM- covid 07/17-08/03[facility] [place] admitted for nine days 10/2021[facility] [place] stone - pneumonia, 3 day stay [...] mellitus with diabetic peripheral angiopathy without gangrene?Procedure: 95642-KBCG SKIN LESIONS, 2 TO 4 3.?Tinea unguium?Procedure: 73000-AUAASST NAIL, 6 OR MORE * Procedures:?Debride Nail [...] to maintain effectiveness in symptomatic relief - 24769.?Keratoma Treatment:?Parring or Cutting of Benign Hyperkeratotic Lesion(s)?(-56) [...] instrumentation by the physician of record - 81023, Q8.?Wart Treatment:?Procedure?Verruca, as described in exam, were debrided to pin-point bleeding margins with sterile 15 surgical blade, silver nitrate chemocautery applied, recomm. immune-boosting meds such as zinc, recomm. follow up with topical chemosurgical agents, Pt defers any other forms of tx - 03036.? * Procedure Codes:?06184 DEBRI DE NAIL, 6 OR MORE, Modifiers: XS 19787 Wart Destruction, 1-14, Modifiers: XS 07365 TRIM SKIN LESIONS, 2 TO 4, Modifiers: [...] Buckley DPM Date:?2024 Generated for Shekhar mata/Adelaide/Jerrod on:?11/26/2024 08:40 AM EDT History and Physical [...] diameter, plantar Forefoot, Midfoot, Heel, B/L Orthopedic FOOTWEAR EVALUATION: good condit ion, exhibit proper fit and accommodation for pedal [...]
--- OUTSIDE RECORDS SUMMARY | 2024-11-26 08:41 | XMS_ITS | Clinical Summary ---
Author Organization [facility] it Address [address] [place] [address] Care Team Providers Care Costing Manager Name Role Phone Unavailable Primary Care Provider [...] DTaP,Tdap,and Td Vaccines (1 - Tdap) 1970 Zoster Vaccines (1 of 2) 2001 Pneumococcal Vaccine: 50+ Years (2 of 2 - PCV) 03/28/2018 03/28/2017, 02/07/2010 COVID-19 Vaccine ( season) 2024 11/29/2021, 07/09/2021, 11/09/2020, Additional history exists Influenza Vaccine (Season Ended) 2025 04/25/2021, 05/19/2019, 05/11/2018, Additional history exists RSV Immunization Adult Patients Completed 10/27/2023 HIB Vaccines Aged Out No longer eligi [...] to complete this topic RSV Immunization Patients Under 20 months Aged Out No longer eligible based on patient's age to complete this topic Varicella Vaccines Aged Out No longer eligible based on patient's age to complete this topic
--- NOTE | 2024-11-26 08:51 | MHC.OFFVISCO ---
Intake Intake Visit Reasons: Anticoagulation Allergies nicotine Allergy (Intermediate, Verified 11/26/24 08:38) Rash fish derived [FISH] Allergy (Unknown, Verified 11/26/24 08:38) ANGIOEDEMA tamsulosin [Flomax] Adverse Reaction (Intermediate, Verified 11/26/24 08:38) nightmares Medication List - Last Reconciled 11/26/24 by Yakelin Jenkins RN albuterol sulfate mg inhalation Q6H PRN albuterol sulfate 90 mcg/actuation inhalation blood sugar diagnostic (FreeStyle Lite Strips) daily blood-glucose meter (FreeStyle [place] Lite kit) As directed [custom heat molded multidensity innersoles wear 3 pairs of custom heat molded multidensity innersoles wear] diclofenac sodium 1% 2 grams topical QID docusate sodium (Stool Softener) 100 mg PO DAILY [extra depth orthopedic shoes with 3 pairs of custom heat molded multidensity innersoles wear] fluticasone propionate 50 mcg/actuation 1 spray intranasal DAILY kohmkeqrqov-uylvvntku-vbbnyaxi 100-62.5-25 mcg (Trelegy Ellipta) 1 ea inhalation DAILY furosemide 40 mg PO QAM glimepiride 1 mg PO DAILY hydrocortisone 2.5% appl topical lancets (FreeStyle Lancets) test daily metformin 1,000 mg PO BID metoprolol succinate ER 50 mg PO DAILY omeprazole 40 mg PO DAILY polyethylene glycol 3350 (Miralax) 17 grams PO DAILY saw palmetto 450 mg PO BID solifenacin 10 mg PO DAILY triamcinolone acetonide 0.1% 1 appl topical BID-TID vitamins A,C,G-iqcd-ihmzvy 2,148 mcg-113 mg-45 mg-17.4mg (PreserVision AREDS) 1 tab PO BID warfarin 7.5 mg See Protocol PO DAILY MDD 1.5 tablets daily Nursing Note INR: 2.3 in therapeutic range Medications and supplements reviewed No changes in health, diet, medications, or supplements, Denies any signs and symptoms of bleeding or bruising or clotting. Bleeding, bruising, clotting discussed Nutritional guidance given Dose: 11.25MG MWF/ 7.5MG X 4 DAYS F/U INR: 3 WEEKS OR SOONER PRN Pt health Patient verbalizes understanding of instructions given Anti-Coag Initial Assessment Social Hx Patient Tobacco Use Status: Former Tobacco user Tobacco use type: Cigarette alcohol intake: current Alcohol intake frequency: holidays/special occasions only Cardiovascular Hx: HTN, CHF and Cardiomyopathy Lung Disease HX: Asthma, COPD and DVT/PE Endocrine Hx: Diabetes Blood Disorder Hx: Other GI Hx: Other Cancer HX: No Coding Level of Care Code Est Patient Level 1 Diagnoses Current use of anticoagulant therapy Z79.01 Results AMB INR Fingerstick AMB INR Fingerstick 2.3 Last Edit by Yakelin Jenkins RN on 11/26/24 08:48 MANUAL ENTRY Assessment & Plan Assessment & Plan (1) Current use of anticoagulant therapy: Code(s): Z79.01 - USP (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
[2024-11-26 09:12] LABS: Prothrombin Time Whole Bld POC 27.4 sec (11.1-13.5); ~PT, ~INR - Anti Coag Clinic 2.3 (0.9-1.1)
== END 2024-11-26 08:54 | disposition home or self-care (01) ==
LOC: HO.ACS 08:38
PROVIDERS: PCP Internal Medicine; Visit Provider Internal Medicine Medical Oncology
DX: Z79.01 Long term (current) use of anticoagulants (principal)

== ENCOUNTER → 2024-11-26 08:38 | Outpatient (BNVA) | payer MEDICARE, OTHER, SELFPAY | PROVIDERS: PCP Internal Medicine; Visit Provider Internal Medicine Medical Oncology | DX: I26.99 Other pulmonary embolism without acute cor pulmonale (principal); Z79.01 Long term (current) use of anticoagulants; Z51.81 Encounter for therapeutic drug level monitoring | CPT/HCPCS: 85610; 99211 ==

== ENCOUNTER 2024-12-06 13:34 | Outpatient (AMB) | payer MEDICARE, OTHER, SELFPAY ==
--- OUTSIDE RECORDS SUMMARY | 2024-12-06 15:03 | XMS_ITS | Clinical Summary ---
Author Organization [facility] it Address [address] [place] [address] Care Team Providers Care Inventory Control Analyst Name Role Phone Unavailable Primary Care Provider [...]
--- NOTE | 2024-12-06 15:04 | MHC.OFFVISCO ---
Intake Intake Visit Reasons: Anticoagulation Allergies nicotine Allergy (Intermediate, Verified 12/06/24 13:34) Rash fish derived [FISH] Allergy (Unknown, Verified 12/06/24 13:34) ANGIOEDEMA tamsulosin [Flomax] Adverse Reaction (Intermediate, Verified 12/06/24 13:34) nightmares Medication List - Last Reconciled 12/06/24 by Yakelin Jenkins RN albuterol sulfate mg inhalation Q6H PRN albuterol sulfate 90 mcg/actuation inhalation blood sugar diagnostic (FreeStyle Lite Strips) daily blood-glucose meter (FreeStyle [place] Lite kit) As directed [custom heat molded multidensity innersoles wear 3 pairs of custom heat molded multidensity innersoles wear] diclofenac sodium 1% 2 grams topical QID docusate sodium (Stool Softener) 100 mg PO DAILY [extra depth orthopedic shoes with 3 pairs of custom heat molded multidensity innersoles wear] fluticasone propionate 50 mcg/actuation 1 spray intranasal DAILY yamsfjixqwx-yweeahcel-wyusylxs 100-62.5-25 mcg (Trelegy Ellipta) 1 ea inhalation DAILY furosemide 40 mg PO QAM glimepiride 1 mg PO DAILY hydrocortisone 2.5% appl topical lancets (FreeStyle Lancets) test daily levofloxacin 750 mg PO DAILY metformin 1,000 mg PO BID metoprolol succinate ER 50 mg PO DAILY omeprazole 40 mg PO DAILY polyethylene glycol 3350 (Miralax) 17 grams PO DAILY prednisone mg PO saw palmetto 450 mg PO BID solifenacin 10 mg PO DAILY triamcinolone acetonide 0.1% 1 appl topical BID-TID vitamins A,C,E-symh-xqkhwd 2,148 mcg-113 mg-45 mg-17.4mg (PreserVision AREDS) 1 tab PO BID warfarin 7.5 mg See Protocol PO DAILY MDD 1.5 tablets daily Nursing Note t/c from pt today that he has URI and started on Antbx Levofloxacin x 5 days and Prednisone tappering high dose x 10days on Friday12/03/2024 He at extra greens over the weekend to help prevent INR from going to high ( blood becoming to thin) INR: 2.6 in therapeutic range Medications and supplements reviewed No changes in health, diet, medications, or supplements, Denies any signs and symptoms of bleeding or bruising or clotting. Bleeding, bruising, clotting discussed Nutritional guidance given- make sure to have a serving of greens over the weekend Dose: decrease this weeks dose to 11.25mg x 2 days then next week resume 11.25mg mwf/ 7.5mg x 4 days F/U INR: 12/17/24 Patient verbalizes understanding of instructions given with accurate read back Anti-Coag Initial Assessment Social Hx Patient Tobacco Use Status: Former Tobacco user Tobacco use type: Cigarette alcohol intake: current Alcohol intake frequency: holidays/special occasions only Cardiovascular Hx: HTN, CHF and Cardiomyopathy Lung Disease HX: Asthma, COPD and DVT/PE Endocrine Hx: Diabetes Blood Disorder Hx: Other GI Hx: Other Cancer HX: No Coding Level of Care Code Est Patient Level 1 Diagnoses Current use of anticoagulant therapy Z79.01 Comment pt came in for INR check due to antbx effecting INR Results AMB INR Fingerstick AMB INR Fingerstick 2.6 Last Edit by Yakelin Jenkins RN on 12/06/24 14:58 Assessment & Plan Assessment & Plan (1) Current use of anticoagulant therapy: Code(s): Z79.01 - [facility] (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
[2024-12-06 15:47] LABS: Prothrombin Time Whole Bld POC 30.7 sec (11.1-13.5); ~PT, ~INR - Anti Coag Clinic 2.6 (0.9-1.1)
== END 2024-12-06 15:15 | disposition home or self-care (01) ==
LOC: HO.ACS 13:34
PROVIDERS: PCP Internal Medicine; Visit Provider Internal Medicine Medical Oncology
DX: Z79.01 Long term (current) use of anticoagulants (principal)

== ENCOUNTER → 2024-12-06 13:34 | Outpatient (BNVA) | payer MEDICARE, OTHER, SELFPAY | PROVIDERS: PCP Internal Medicine; Visit Provider Internal Medicine Medical Oncology | DX: I26.99 Other pulmonary embolism without acute cor pulmonale (principal); Z51.81 Encounter for therapeutic drug level monitoring; Z79.01 Long term (current) use of anticoagulants | CPT/HCPCS: 85610; 99211 ==

== ENCOUNTER 2024-12-17 08:18 | Outpatient (AMB) | payer MEDICARE, OTHER, SELFPAY ==
--- OUTSIDE RECORDS SUMMARY | 2024-12-17 08:29 | XMS_ITS | Continuity of Care Document ---
Author Organization [facility] Address [address] [place] [address]- Care Team Providers Care Underwriting Director Name Role Phone Stan THOMPSON, Tito Fraser Primary Care Physician [phone] Encounter [facility] [place] [facility] Date(s): 11/11/24 - 12/11/24 [facility] [address] [place], [place] [address] Encounter Type: Triage Allergies, Adverse Reactions, Alerts Substance Criticality Severity Reaction Reaction Severity Status Flomax insomnia Active Nicotine Patch rash,itching Ac tive Magnevist Low criticality Mild patient felt sick/weak after injection Resolved Fish SOB, swelling Active Immunizations Given and Recorded Vaccine Date Status Refusal Reason RSV vaccine preF3, recombinant 10/27/23 Recorded pneumococcal 20-valent conjugate vaccine 08/06/22 Recorded TBTN-EgZ-1uVUK 12y+ bivalent booster vax 08/06/22 Recorded SARS-CoV-2 mRNA (dimgkqk-hnkr-htrcx) vax 11/29/21 Recorded SARS-CoV-2 (COVID-19) mRNA BNT-162b2 [...] Maintenance, 06/22/24 4:21:00 PM EST, [id number], 179, cm, 06/10/24 8:17:00 EST, Height, 111, [...] Quantity: 30.0 Unit: tablet Repeat number: 1 Azithromycin 5 Day Dose Pack 250 mg oral tablet 1 pack/packet, By Mouth, Once, as directed on package labeling, # 6 tablet, 0 Refills, Soft Stop, 11/10/24 4:23:00 PM EDT, Tablet, [facility]/pharmacy #[id number], Partial fill upon patient request if the prescription is for a schedule II opioid drug., 179, cm, 09/09/24 9:38:00 EST, Height, 111, kg, 04/14/24 7:24:00 EDT, Dry Weight Start Date: 11/10/24 Status: Ordered Quantity: 6.0 Unit: tablet Repeat number: 1 Colace sodium 100 mg oral capsule 100 mg, 1, capsule, By Mouth, Daily, PRN, # 90 capsule, Refills 6, Tot. Refills 6, Maintenance, forconstipation, 11/30/24 9:06:00 AM EDT, Route to Pharmacy Electronically, [facility]/pharmacy #[id number], Partialfill upon patient request if the prescription is for a schedule II opioid drug., 179, cm, 11/30/24 8:56:00 EDT, Height, 111, kg, 04/14/24 7:24:00 EDT, Dry Weight Start Date: 11/30/24 Status: Ordered Quantity: 90.0 Unit: capsule Repeat number: 7 Indication: Constipation, unspecified dicyclomine 10 mg oral capsule 1 capsule = 10 mg, By Mouth, 4 times a day, PRN abdominal cramping, # 40 capsule, 1 Refills, Maintenance, 06/01/24 9:42:00 AM EDT, Capsule, [facility]/pharmacy #1026, Partial fill upon patient [...] 0 Refills, Maintenance, 10/22/21 10:29:00 AM EDT, [facility], Partial fill upon patient request [...] Refills, Maintenance, 10/23/21 3:23:00 PM EDT, Tablet, [facility]/pharmacy #1026, Partial fill upon patient [...] 7:32:00 AM EST, Route to Pharmacy Electronically, [id number], 179, cm, 06/10/24 8:17:00 EST, Height, 111, [...] 1.0 Unit: each Repeat number: 12 omeprazole 20 mg oral enteric coated capsule 1 capsule = 20 mg, By Mouth, Daily, # 90 capsule, 6 Refills, Maintenance, 11/30/24 9:07:00 AM EDT, EC Capsule, [facility]/pharmacy #1026, Partial fill upon patient request if the prescription is for a schedule II opioid drug., 179, cm, 11/30/24 8:56:00 EDT, Height, 111, kg, 04/14/24 7:24:00 EDT, Dry Weight Start Date: 11/30/24 Status: Ordered Quantity: 90.0 Unit: capsule Repeat number: 7 Indication: Gastro-esophageal reflux disease without esophagitis predniSONE 10 mg oral tablet 5 tablet = 50 mg, By Mouth, Daily, 5 tablets daily for 2 days, decrease by 1 tablet every 2 days till 1 tablet daily for 2 days and stop, # 30 tablet, 0 Refills, Maintenance, 12/03/24 4:10:00 PM EDT, Tablet, [facility]/pharmacy #1026, Partial fill upon patient request if the prescription is for a schedule II opioid drug., 179, cm, 12/03/24 15:48:00 EDT, Height, 111, kg, 04/14/24 7:24:00 EDT, Dry Weight Start Date: 12/03/24 Stop Date: 12/13/24 Status: Ordered Quantity: 30.0 Unit: tablet Repeat number: 1 PreserVision AREDS oral capsule By Mouth, 2 [...] Refills, Soft Stop, 06/01/24 9:47:00 AM EDT, [facility]/pharmacy #1026, Partial fill upon patient [...] 6 Refills, Maintenance, 08/25/24 5:05:00 PM EST, [facility], 179, cm, 06/10/24 8:17:00 EST, Height, 111, kg, 04/14/24 7:24:00 EDT, Dry Weight Start Date: 08/25/24 Status: Ordered Quantity: 60.0 Unit: Unknown Repeat number: 1 valsartan 40 mg oral tablet 1, tablet, By Mouth, 2 times a day, # 180 tablet, Refills 1, Maintenance, 06/14/24 7:26:00 AM EST, Route to Pharmacy Electronically, [id number], 179, cm, 06/10/24 8:17:00 EST, Height, 111, [...] Refills, Maintenance, 10/22/21 10:11:00 AM EDT, Tablet, [facility], Partial fill upon patient request if the prescription is for a schedule II opioid drug., 180, cm, 10/22/21 6:34:00 EDT, Height, 116, kg, 10/13/21 20:36:00 EST, Dry Weight Start Date: 10/22/21 Status: Ordered Quantity: 30.0 Unit: tablet Repeat number: 1 ZyrTEC 10 mg oral tablet 1 tablet = 10 mg, By Mouth, Daily, PRN for allergy symptoms, # 90 tablet, 0 Refills, Maintenance, 12/09/24 4:55:00 PM EDT, Tablet, [facility], Partial fill upon patient request if the prescription is for a schedule II opioid drug., 179, cm, 12/03/24 15:48:00 EDT, Height, 111, kg, 04/14/24 7:24:00 EDT, Dry Weight Start Date: 12/09/24 Status: Ordered Quantity: 90.0 Unit: tablet Repeat number: 1 Problem List Condition Confirmation Course Effective Dates Status Health St atus Informant Central sleep apnea Confirmed Active Congestive heart failure Confirmed Active Constipation Confirmed Active Enlarged prostate Confirmed Active GERD (gastroesophageal reflux disease) Confirmed Active Nocturnal hypoxemia Confirmed Active Moderate [...] RN Member Role: Primary Care Nurse Name: Tito Pierce MD Position: Reference Physician Member Role: PCP Address: [address] [place] [address] Telecom: Name: Rina Stringer RN Position: S RN [...] Care Nurse Name: Haley Irene RN Position: [facility] RN Member Role: Primary Care Nurse Name: Kaley Feng RN Position: [facility] RN Member Role: Primary Care Nurse Name: Natalya Davis RN Position: [facility] ED RN W/OE and Tasks Member Role: Primary Care Nurse Name: Kaylene Reid RN Position: [facility] RN Member Role: Primary Care Nurse Name: Cedric Dodson RN Position: [facility] RN Member Role: Primary Care Nurse Name: Cory Zhou RN Position: [facility] RN Member Role: Primary Care Nurse Name: Deni Gramajo MD Position: [facility] Outreach Member Role: Lifetime Consulting Physician Address: [address] [facility] [address] Telecom: Name: Brenda Mackenzie RN Position: [facility] RN Member Role: Primary Care Nurse Name: Elsa Hawkins RN Position: [facility] RN Member Role: Primary Care Nurse Name: Malathi Borges RN Position: [facility] RN Member Role: Primary Care Nurse Name: Riley Urias MD Position: [facility] Renal MD Member Role: Lifetime Consulting Physician Address: [address] [facility] [address] Telecom: Name: Heide Carrero RN Position: [facility] RN Member Role: Primary Care Nurse Name: Janett Venegas RN Position: [facility] AMB Nurse Member Role: Primary Care Nurse Name: Jorgito Kim RN Position: [facility] RN Member Role: Primary Care Nurse Name: Alberta Doherty RN Position: [facility] SN RN Member Role: Primary Care Nurse Name: Caprice Hinds RN Position: [facility] RN Member Role: Primary Care Nurse Name: Gillian Uriostegui RN Position: [facility] Hospital Chief Digital Officer Member Role: Primary Care Nurse Name: Heide Soriano RN Position: [facility] RN Member Role: Primary Care Nurse Name: Carie Geiger RN Position: [facility] RN Member Role: Primary Care Nurse [...]
--- OUTSIDE RECORDS SUMMARY | 2024-12-17 08:29 | XMS_ITS | Clinical Summary ---
Author Organization [facility] it Address [address] [place] [address] Care Team Providers Care Oil Heaterman Name Role Phone Unavailable Primary Care Provider [...]
[2024-12-17 08:50] LABS: Prothrombin Time Whole Bld POC 23.8 sec (11.1-13.5)
--- NOTE | 2024-12-17 08:55 | MHC.OFFVISCO ---
Intake Intake Visit Reasons: Anticoagulation Allergies nicotine Allergy (Intermediate, Verified 12/17/24 08:45) Rash fish derived [FISH] Allergy (Unknown, Verified 12/17/24 08:45) ANGIOEDEMA tamsulosin [Flomax] Adverse Reaction (Intermediate, Verified 12/17/24 08:45) nightmares Medication List - Last Reconciled 12/17/24 by Yakelin Jenkins RN albuterol sulfate mg inhalation Q6H PRN albuterol sulfate 90 mcg/actuation inhalation blood sugar diagnostic (FreeStyle Lite Strips) daily blood-glucose meter (FreeStyle [place] Lite kit) As directed cetirizine 10 mg PO DAILY PRN [custom heat molded multidensity innersoles wear 3 pairs of custom heat molded multidensity innersoles wear] diclofenac sodium 1% 2 grams topical QID docusate sodium (Stool Softener) 100 mg PO DAILY [extra depth orthopedic shoes with 3 pairs of custom heat molded multidensity innersoles wear] fluticasone propionate 50 mcg/actuation 1 spray intranasal DAILY vhcjmmhgufz-qxhqelkca-branapjv 100-62.5-25 mcg (Trelegy Ellipta) 1 ea inhalation DAILY furosemide 40 mg PO QAM glimepiride 1 mg PO DAILY hydrocortisone 2.5% appl topical lancets (FreeStyle Lancets) test daily metformin 1,000 mg PO BID metoprolol succinate ER 50 mg PO DAILY omeprazole 40 mg PO DAILY polyethylene glycol 3350 (Miralax) 17 grams PO DAILY saw palmetto 450 mg PO BID solifenacin 10 mg PO DAILY triamcinolone acetonide 0.1% 1 appl topical BID-TID vitamins A,C,J-jbcw-ewgqxf 2,148 mcg-113 mg-45 mg-17.4mg (PreserVision AREDS) 1 tab PO BID warfarin 7.5 mg See Protocol PO DAILY MDD 1.5 tablets daily Nursing Note s/p URI recovered- on antihistamine and seems to be helping INR: 2.0 in therapeutic range Medications and supplements reviewed No changes in health, diet, medications, or supplements, Denies any signs and symptoms of bleeding or bruising or clotting. Bleeding, bruising, clotting discussed Nutritional guidance given Dose: 11.25mg x 3 days/ 7.5mg x 4 days F/U INR: 3 weeks Patient verbalizes understanding of instructions given Anti-Coag Initial Assessment Social Hx Patient Tobacco Use Status: Former Tobacco user Tobacco use type: Cigarette alcohol intake: current Alcohol intake frequency: holidays/special occasions only Cardiovascular Hx: HTN, CHF and Cardiomyopathy Lung Disease HX: Asthma, COPD and DVT/PE Endocrine Hx: Diabetes Blood Disorder Hx: Other GI Hx: Other Cancer HX: No Coding Level of Care Code Est Patient Level 1 Diagnoses Current use of anticoagulant therapy Z79.01 Assessment & Plan Assessment & Plan (1) Current use of anticoagulant therapy: Code(s): Z79.01 - rat exterminator (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
== END 2024-12-17 08:58 | disposition home or self-care (01) ==
LOC: HO.ACS 08:18
PROVIDERS: PCP Internal Medicine; Visit Provider Internal Medicine Medical Oncology
DX: Z79.01 Long term (current) use of anticoagulants (principal)

== ENCOUNTER → 2024-12-17 08:18 | Outpatient (BNVA) | payer MEDICARE, OTHER, SELFPAY | PROVIDERS: PCP Internal Medicine; Visit Provider Internal Medicine Medical Oncology | DX: I26.99 Other pulmonary embolism without acute cor pulmonale (principal); Z79.01 Long term (current) use of anticoagulants; Z51.81 Encounter for therapeutic drug level monitoring | CPT/HCPCS: 85610; 99211 ==

== ENCOUNTER → 2024-12-23 16:56 | Outpatient (BNVA) | payer MEDICARE, OTHER, SELFPAY | PROVIDERS: PCP Internal Medicine; Visit Provider Internal Medicine Medical Oncology ==

== ENCOUNTER 2025-01-03 08:29 | Outpatient (AMB) | payer MEDICARE, OTHER, SELFPAY ==
[2025-01-03 08:36] LABS: ~PT, ~INR - Anti Coag Clinic 1.7 (0.9-1.1)
--- OUTSIDE RECORDS SUMMARY | 2025-01-03 08:40 | XMS_ITS | Clinical Summary ---
Author Organization [facility] it Address [address] [place] [address] Care Team Providers Care Waste Water Treatment Plant Operator Name Role Phone Unavailable Primary Care [...]
--- NOTE | 2025-01-03 08:41 | MHC.OFFVISCO ---
Intake Intake Visit Reasons: Anticoagulation Allergies nicotine Allergy (Intermediate, Verified 01/03/25 08:30) Rash fish derived [FISH] Allergy (Unknown, Verified 01/03/25 08:30) ANGIOEDEMA tamsulosin [Flomax] Adverse Reaction (Intermediate, Verified 01/03/25 08:30) nightmares Medication List - Last Reconciled 01/03/25 by Marie Shaver, RN albuterol sulfate mg inhalation Q6H PRN albuterol sulfate 90 mcg/actuation inhalation blood sugar diagnostic (FreeStyle Lite Strips) daily blood-glucose meter (FreeStyle [place] Lite kit) As directed cetirizine 10 mg PO DAILY PRN [custom heat molded multidensity innersoles wear 3 pairs of custom heat molded multidensity innersoles wear] diclofenac sodium 1% 2 grams topical QID docusate sodium (Stool Softener) 100 mg PO DAILY [extra depth orthopedic shoes with 3 pairs of custom heat molded multidensity innersoles wear] fluticasone propionate 50 mcg/actuation 1 spray intranasal DAILY sacvzkqvbxd-cmvxxwpgm-repzyrpj 100-62.5-25 mcg (Trelegy Ellipta) 1 ea inhalation DAILY furosemide 40 mg PO QAM glimepiride 1 mg PO DAILY hydrocortisone 2.5% appl topical lancets (FreeStyle Lancets) test daily metformin 1,000 mg PO BID metoprolol succinate ER 50 mg PO DAILY omeprazole 40 mg PO DAILY polyethylene glycol 3350 (Miralax) 17 grams PO DAILY prednisone mg PO saw palmetto 450 mg PO BID solifenacin 10 mg PO DAILY triamcinolone acetonide 0.1% 1 appl topical BID-TID vitamins A,C,C-gbea-hothpv 2,148 mcg-113 mg-45 mg-17.4mg (PreserVision AREDS) 1 tab PO BID warfarin 7.5 mg See Protocol PO DAILY MDD 1.5 tablets daily Nursing Note INR: 1.7 out of therapeutic range of 2-3 Medications and supplements reviewed Patient status: well Medications or supplements: no changes Diet: usual diet for pt Denies any signs and symptoms of bleeding or clotting or unusual bruising Bleeding, bruising, clotting discussed Nutritional guidance given: to avoid greens today, then balance foods that raise with foods that lower the INR Dose: increase this weeks warfarin total by 3.75mg then 7.5mg X 4 days and 11.25mg X 3 days F/U INR Date: 2 weeks?? Patient verbalizing understanding of instructions given. Anti-Coag Initial Assessment Social Hx Patient Tobacco Use Status: Former Tobacco user Tobacco use type: Cigarette alcohol intake: current Alcohol intake frequency: holidays/special occasions only Cardiovascular Hx: HTN, CHF and Cardiomyopathy Lung Disease HX: Asthma, COPD and DVT/PE Endocrine Hx: Diabetes Blood Disorder Hx: Other GI Hx: Other Cancer HX: No Coding Level of Care Code Est Patient Level 1 Diagnoses Current use of anticoagulant therapy Z79.01 Assessment & Plan Assessment & Plan (1) Current use of anticoagulant therapy: Code(s): Z79.01 - skilled nursing (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
== END 2025-01-03 08:45 | disposition home or self-care (01) ==
LOC: HO.ACS 08:29
PROVIDERS: PCP Internal Medicine; Visit Provider Internal Medicine Medical Oncology
DX: Z79.01 Long term (current) use of anticoagulants (principal)

== ENCOUNTER → 2025-01-03 08:29 | Outpatient (BNVA) | payer MEDICARE, OTHER, SELFPAY | PROVIDERS: PCP Internal Medicine; Visit Provider Internal Medicine Medical Oncology | DX: I26.99 Other pulmonary embolism without acute cor pulmonale (principal); Z51.81 Encounter for therapeutic drug level monitoring; Z79.01 Long term (current) use of anticoagulants | CPT/HCPCS: 85610; 99211 ==

== ENCOUNTER 2025-01-17 08:17 | Outpatient (AMB) | payer MEDICARE, OTHER, SELFPAY ==
--- OUTSIDE RECORDS SUMMARY | 2025-01-17 08:34 | XMS_ITS | Clinical Summary ---
Author Organization [facility] it Address [address] [place] [address] Care Team Providers Care Bicycle Designer Name Role Phone Unavailable Primary Care Provider [...]
[2025-01-17 08:41] LABS: Prothrombin Time Whole Bld POC 33.6 sec (11.1-13.5); ~PT, ~INR - Anti Coag Clinic 2.8 (0.9-1.1)
--- NOTE | 2025-01-17 08:46 | MHC.OFFVISCO ---
Intake Intake Visit Reasons: Anticoagulation Allergies nicotine Allergy (Intermediate, Verified 01/17/25 08:36) Rash fish derived [FISH] Allergy (Unknown, Verified 01/17/25 08:36) ANGIOEDEMA tamsulosin [Flomax] Adverse Reaction (Intermediate, Verified 01/17/25 08:36) nightmares Medication List - Last Reconciled 01/17/25 by Marie Shaver, RN albuterol sulfate mg inhalation Q6H PRN albuterol sulfate 90 mcg/actuation inhalation blood sugar diagnostic (FreeStyle Lite Strips) daily blood-glucose meter (FreeStyle [place] Lite kit) As directed cetirizine 10 mg PO DAILY PRN [custom heat molded multidensity innersoles wear 3 pairs of custom heat molded multidensity innersoles wear] diclofenac sodium 1% 2 grams topical QID docusate sodium (Stool Softener) 100 mg PO DAILY [extra depth orthopedic shoes with 3 pairs of custom heat molded multidensity innersoles wear] fluticasone propionate 50 mcg/actuation 1 spray intranasal DAILY ylluncqyivc-hylzvugwr-pekfzapd 100-62.5-25 mcg (Trelegy Ellipta) 1 ea inhalation DAILY furosemide 40 mg PO QAM glimepiride 1 mg PO DAILY hydrocortisone 2.5% appl topical lancets (FreeStyle Lancets) test daily metformin 1,000 mg PO BID metoprolol succinate ER 50 mg PO DAILY omeprazole 40 mg PO DAILY polyethylene glycol 3350 (Miralax) 17 grams PO DAILY prednisone mg PO saw palmetto 450 mg PO BID solifenacin 10 mg PO DAILY triamcinolone acetonide 0.1% 1 appl topical BID-TID vitamins A,C,U-syom-gckbsk 2,148 mcg-113 mg-45 mg-17.4mg (PreserVision AREDS) 1 tab PO BID warfarin 7.5 mg See Protocol PO DAILY MDD 1.5 tablets daily Nursing Note INR: 2.8 in therapeutic range of 2-3 Pt has an ear infection and is on doxycycline. Today is last day in the course of treatment. Medications and supplements reviewed No changes in health, diet, medications, or supplements, Denies any signs and symptoms of bleeding or bruising or clotting. Bleeding, bruising, clotting discussed Nutritional guidance given Dose: 7.5mg X 4 days and 11.25mg X 3 days (M/W/F) F/U INR: 01/28/25 Patient verbalizes understanding of instructions given Anti-Coag Initial Assessment Social Hx Patient Tobacco Use Status: Former Tobacco user Tobacco use type: Cigarette alcohol intake: current Alcohol intake frequency: holidays/special occasions only Cardiovascular Hx: HTN, CHF and Cardiomyopathy Lung Disease HX: Asthma, COPD and DVT/PE Endocrine Hx: Diabetes Blood Disorder Hx: Other GI Hx: Other Cancer HX: No Coding Level of Care Code Est Patient Level 1 Diagnoses Current use of anticoagulant therapy Z79.01 Assessment & Plan Assessment & Plan (1) Current use of anticoagulant therapy: Code(s): 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
== END 2025-01-17 08:48 | disposition home or self-care (01) ==
LOC: HO.ACS 08:17
PROVIDERS: PCP Internal Medicine; Visit Provider Internal Medicine Medical Oncology
DX: Z79.01 Long term (current) use of anticoagulants (principal)

== ENCOUNTER → 2025-01-17 08:17 | Outpatient (BNVA) | payer MEDICARE, OTHER, SELFPAY | PROVIDERS: PCP Internal Medicine; Visit Provider Internal Medicine Medical Oncology | DX: I26.99 Other pulmonary embolism without acute cor pulmonale (principal); Z79.01 Long term (current) use of anticoagulants; Z51.81 Encounter for therapeutic drug level monitoring | CPT/HCPCS: 85610; 99211 ==

== ENCOUNTER 2025-01-28 08:15 | Outpatient (AMB) | payer MEDICARE, OTHER, SELFPAY ==
--- OUTSIDE RECORDS SUMMARY | 2025-01-22 23:59 | XMS_ITS | Continuity of Care Document ---
Author Organization [facility] Address [address] [address]- Care Team Providers Care Top Waddy Name Role Phone Stan THOMPSON, Tito Fraser Primary Care Physician Encounter [facility] [place] Date(s): 12/23/24 - 01/22/25 [facility] [address] [address] Attending Physician: Alejandro Dunaway Admitting Physician: Alejandro Dunaawy Referring Physician: AdmtrAlejandro Encounter Type: Triage Allergies, Adverse Reactions, Alerts Substance Criticality Severity Reaction Reaction Severity Status Flomax insomnia Active Fish SOB, swelling Active Nicotine Patch rash,itching Ac tive Magnevist Low criticality Mild patient felt sick/weak after injection Resolved Immunizations Given and Recorded Vaccine Date Status Refusal Reason RSV vaccine preF3, recombinant 10/27/23 Recorded pneumococcal 20-valent conjugate vaccine 08/06/22 Recorded [id number] 12y+ bivalent booster vax 08/06/22 Recorded SARS-CoV-2 mRNA ([id number]) vax 11/29/21 Recorded SARS-CoV-2 (COVID-19) mRNA BNT-162b2 [...] Maintenance, 06/22/24 4:21:00 PM EST, [id number], 179, cm, 06/10/24 8:17:00 EST, Height, 111, [...] Quantity: 30.0 Unit: tablet Repeat number: 1 azithromycin 250 mg oral tablet See Instructions, 2 tabs po x 1day, then 1 tab po x 4 days., # 6 each, 0 Refills, Acute 02/20/26 9:41:00 AM EDT, 12/23/24 9:40:00 AM EDT, Tablet, [facility]/pharmacy #[id number], Partial fill upon patient request if the prescription is for a schedule II opioid drug., 179, cm, 12/23/24 8:45:00 EDT, Height, 111, kg, 04/14/24 7:24:00 EDT, Dry Weight Start Date: 12/23/24 Stop Date: 02/20/26 Status: Ordered Quantity: 6.0 Unit: each Repeat number: 1 azithromycin 250 mg oral tablet See Instructions, 1 tablet po Friday, Friday and Friday. Please start after completing 5 day course., # 36 each, 0 Refills, Acute 02/06/26 9:58:00 AM EDT, 12/23/24 9:57:00 AM EDT, Tablet, [facility]/pharmacy #[id number], Partial fill upon patient request if the prescription is for a schedule II opioid drug., 179, cm, 12/23/24 8:45:00 EDT, Height, 111, kg, 04/14/24 7:24:00 EDT, Dry Weight Start Date: 12/23/24 Stop Date: 02/06/26 Status: Ordered Quantity: 36.0 Unit: each Repeat number: 1 Colace sodium 100 mg oral capsule 100 mg, 1, capsule, By Mouth, Daily, PRN, # 90 capsule, Refills 6, Tot. Refills 6, Maintenance, forconstipation, 11/30/24 9:06:00 AM EDT, Route to Pharmacy Electronically, [facility]/pharmacy #[id number], Partialfill upon patient request if the prescription is for a schedule II opioid drug., 179, cm, 11/30/24 8:56:00 EDT, Height, 111, kg, 04/14/24 7:24:00 EDT, Dry Weight Start Date: 11/30/24 Status: Ordered Quantity: 90.0 Unit: capsule Repeat number: 7 Indications: Constipation, unspecified; dicyclomine 10 mg oral capsule 1 capsule = 10 mg, By Mouth, 4 times a day, PRN abdominal cramping, # 40 capsule, 1 Refills, Maintenance, 06/01/24 9:42:00 AM EDT, Capsule, [facility]/pharmacy #[id number], Partial fill upon patient request if the prescription is for a schedule II opioid drug., 179, cm, 06/01/24 9:28:00 EDT, Height, 111, kg, 04/14/24 7:24:00 EDT, Dry Weight Start Date: 06/01/24 Status: Ordered Quantity: 40.0 Unit: capsule Repeat number: 2 Indications: Constipation, unspecified; fluticasone 50 mcg/inh nasal spray 0 Refills, [...] 0 Refills, Maintenance, 10/22/21 10:29:00 AM EDT, [facility], Partial fill upon patient request if [...] Refills, Maintenance, 10/23/21 3:23:00 PM EDT, Tablet, [facility]/pharmacy #[id number], Partial fill upon patient request [...] 7:32:00 AM EST, Route to Pharmacy Electronically, [id number], 179, cm, 06/10/24 8:17:00 EST, Height, 111, [...] Maintenance, 11/30/24 9:07:00 AM EDT, EC Capsule, [id number], Partial fill upon patient request if the prescription is for a schedule II opioid drug., 179, cm, 11/30/24 8:56:00 EDT, Height, 111, kg, 04/14/24 7:24:00 EDT, Dry Weight Start Date: 11/30/24 Status: Ordered Quantity: 90.0 Unit: capsule Repeat number: 7 Indications: Gastro-esophageal reflux disease without esophagitis; predniSONE 10 mg oral tablet See Instructions, 4 tabs x 2 days, 3 tabs x 2 days, 2 tabs x 2 days, 1 tab x 2 days and 1/2 tab x 2days., # 21 each, 0 Refills, Maintenance, 12/23/24 9:55:00 AM EDT, [id number], Partial fill upon patient request if the prescription is for a schedule II opioid drug., 179, cm, 12/23/24 8:45:00 EDT, Height, 111, kg, 04/14/24 7:24:00 EDT, Dry Weight Start Date: 12/23/24 Status: Ordered Quantity: 21.0 Unit: each Repeat number: 1 PreserVision AREDS oral capsule [...] Refills, Soft Stop, 06/01/24 9:47:00 AM EDT, [facility]/pharmacy #[id number], Partial fill upon patient request [...] Quantity: 354.0 Unit: mL Repeat number: 1 Indications: Encounter for screening for malignant neoplasm of colon; Trelegy Ellipta 100 mcg-62.5 mcg-25 mcg/inh inhalation powder 1 puffs, Inhalation, Daily, # 60 Unknown, 6 Refills, Maintenance, 08/25/24 5:05:00 PM EST, [facility], 179, cm, 06/10/24 8:17:00 EST, Height, 111, kg, 04/14/24 7:24:00 EDT, Dry Weight Start Date: 08/25/24 Status: Ordered Quantity: 60.0 Unit: Unknown Repeat number: 1 valsartan 40 mg oral tablet 1, tablet, By Mouth, 2 times a day, # 180 tablet, Refills 1, Maintenance, 06/14/24 7:26:00 AM EST, Route to Pharmacy Electronically, [id number], 179, cm, 06/10/24 8:17:00 EST, Height, 111, [...] Refills, Maintenance, 10/22/21 10:11:00 AM EDT, Tablet, [facility] 3, Partial fill upon patient request if [...] Refills, Maintenance, 12/09/24 4:55:00 PM EDT, Tablet, [facility]/pharmacy #[id number], Partial fill upon patient request [...] Position: Reference Physician Member Role: PCP Address: [address] [place] [address] Drive [address] [place], [place] [address] Telecom: Name: Rina Stringer RN Position: S RN Member Role: Primary Care Nurse Name: Natalya Yost RN Position: S RN Member Role: Primary Care Nurse Name: Emily Tapia RN Position: S RN Member Role: Primary Care Nurse Name: Estela Lugo RN Position: [facility] RN Member Role: Primary Care Nurse Name: Matthew Cueto RN Position: S RN Member Role: Primary Care Nurse Name: Haley Irene RN Position: [facility] RN Member Role: Primary Care Nurse Name: Kaley Feng RN Position: [facility] RN Member Role: Primary Care Nurse Name: Natalya Davis RN Position: [facility] RN Member Role: Primary Care Nurse Name: Kaylene Reid RN Position: [facility] RN Member Role: Primary Care Nurse Name: Cedric Dodson RN Position: [facility] RN Member Role: Primary Care Nurse Name: Cory Zhou RN Position: [facility] RN Member Role: Primary Care Nurse Name: Deni Gramajo MD Position: S Outreach Member Role: Lifetime Consulting Physician Address: [address] [facility] [place] [address]- Telecom: Name: Brenda Mackenzie RN Position: [facility] RN Member Role: Primary Care Nurse Name: Elsa Hawkins RN Position: [facility] RN Member Role: Primary Care Nurse Name: Malathi Borges RN Position: [facility] RN Member Role: Primary Care Nurse Name: Riley Urias MD Position: [facility] Renal MD Member Role: Lifetime Consulting Physician Address: [address] [facility] [place], [place] [address] Telecom: Name: Heide Carrero RN Position: [facility] RN Member Role: Primary Care Nurse Name: Janett Venegas RN Position: [facility] AMB Nurse Member Role: Primary Care Nurse Name: Jorgito Kim RN Position: [facility] RN Member Role: Primary Care Nurse Name: Alberta Doherty RN Position: [facility] SN RN Member Role: Primary Care Nurse Name: Caprice Hinds RN Position: [facility] RN Member Role: Primary Care Nurse Name: Gillian Uriostegui RN Position: [facility] Hospital Certified Massage Therapist Member Role: Primary Care Nurse Name: Heide Soriano RN Position: [facility] RN Member Role: Primary Care Nurse Name: Carie Geiger RN Position: [facility] RN Member Role: Primary Care Nurse Care Team Related Persons Name: DELFINA MUNOZ Name: ANMOL MUNOZ Insurance Providers Guarantor name: MATHIEU MUNOZ Health Plan Information #: 1 Payer: MEDICARE B Payer Identifier: Member Number: [id number] Group Number: Subscriber Identifier: [id number] Relationship to Subscriber: self Coverage Type: NA Coverage Verification Date: Telecom: NA Address: Health Plan Information #: 2 Payer: JENNIFER CHAIDEZ Payer Identifier: Member Number: [id number] Group Number: Subscriber Identifier: [id number] Relationship to Subscriber: self Coverage Type: Medicare Other Coverage Verification Date: Telecom: Address:
[2025-01-28 08:50] LABS: Prothrombin Time Whole Bld POC 34.5 sec (11.1-13.5); ~PT, ~INR - Anti Coag Clinic 2.9 (0.9-1.1)
--- NOTE | 2025-01-28 08:54 | MHC.OFFVISCO ---
Intake Intake Visit Reasons: Anticoagulation Allergies nicotine Allergy (Intermediate, Verified 01/28/25 08:45) Rash fish derived (FISH) Allergy (Unknown, Verified 01/28/25 08:45) ANGIOEDEMA tamsulosin (Flomax) Adverse Reaction (Intermediate, Verified 01/28/25 08:45) nightmares Medication List - Last Reconciled 01/28/25 by Marie Shaver, RN albuterol sulfate mg inhalation Q6H PRN albuterol sulfate 90 mcg/actuation inhalation blood sugar diagnostic (FreeStyle Lite Strips) daily blood-glucose meter (FreeStyle [place] Lite kit) As directed cetirizine 10 mg PO DAILY PRN [custom heat molded multidensity innersoles wear 3 pairs of custom heat molded multidensity innersoles wear] diclofenac sodium 1% 2 grams topical QID docusate sodium (Stool Softener) 100 mg PO DAILY [extra depth orthopedic shoes with 3 pairs of custom heat molded multidensity innersoles wear] fluticasone propionate 50 mcg/actuation 1 spray intranasal DAILY gwuiiapyygm-smwwtoikh-pshjnrzi 100-62.5-25 mcg (Trelegy Ellipta) 1 ea inhalation DAILY furosemide 40 mg PO QAM glimepiride 1 mg PO DAILY hydrocortisone 2.5% appl topical lancets (FreeStyle Lancets) test daily metformin 1,000 mg PO BID metoprolol succinate ER 50 mg PO DAILY omeprazole 40 mg PO DAILY polyethylene glycol 3350 (Miralax) 17 grams PO DAILY prednisone mg PO saw palmetto 450 mg PO BID solifenacin 10 mg PO DAILY triamcinolone acetonide 0.1% 1 appl topical BID-TID vitamins A,C,M-udby-qanxlc 2,148 mcg-113 mg-45 mg-17.4mg (PreserVision AREDS) 1 tab PO BID warfarin 7.5 mg See Protocol PO DAILY MDD 1.5 tablets daily Nursing Note INR: 2.9 in therapeutic range 2-3 Medications and supplements reviewed No changes in health, diet, medications, or supplements, Denies any signs and symptoms of bleeding or bruising or clotting. Bleeding, bruising, clotting discussed Nutritional guidance given to have a serving of greens today Dose: 7.5mg X 4 days and 11.25mg X 3 days (M/W/F) F/U INR: 2 week Patient verbalizes understanding of instructions given Anti-Coag Initial Assessment Social Hx Patient Tobacco Use Status: Former Tobacco user Tobacco use type: Cigarette alcohol intake: current Alcohol intake frequency: holidays/special occasions only Cardiovascular Hx: HTN, CHF and Cardiomyopathy Lung Disease HX: Asthma, COPD and DVT/PE Endocrine Hx: Diabetes Blood Disorder Hx: Other GI Hx: Other Cancer HX: No Coding Level of Care Code Est Patient Level 1 Diagnoses Current use of anticoagulant therapy Z79.01 Assessment & Plan Assessment & Plan (1) Current use of anticoagulant therapy: Code(s): Z79.01 - [facility] (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
== END 2025-01-28 08:58 | disposition home or self-care (01) ==
LOC: HO.ACS 08:15
PROVIDERS: PCP Internal Medicine; Visit Provider Internal Medicine Medical Oncology
DX: Z79.01 Long term (current) use of anticoagulants (principal)

== ENCOUNTER → 2025-01-28 08:15 | Outpatient (BNVA) | payer MEDICARE, OTHER, SELFPAY | PROVIDERS: PCP Internal Medicine; Visit Provider Internal Medicine Medical Oncology | DX: I26.99 Other pulmonary embolism without acute cor pulmonale (principal); Z79.01 Long term (current) use of anticoagulants; Z51.81 Encounter for therapeutic drug level monitoring | CPT/HCPCS: 85610; 99211 ==

== ENCOUNTER 2025-02-11 08:31 | Outpatient (AMB) | payer MEDICARE, OTHER, SELFPAY ==
--- OUTSIDE RECORDS SUMMARY | 2025-02-09 23:59 | XMS_ITS | Continuity of Care Document ---
Author Organization [facility] Address [address] [place] [address]- Care Team Providers Care Marking Clerk Name Role Phone Stan THOMPSON, Tito Fraser Primary Care Physician Encounter [facility] Date(s): 01/10/25 - 02/09/25 [facility] [address] [place] [address]- Attending Physician: Alejandro Dunaway Admitting Physician: Alejandro [...] Recorded pneumococcal 20-valent conjugate vaccine 08/06/22 Recorded [id number] 12y+ bivalent booster vax 08/06/22 Recorded SARS-CoV-2 mRNA (yiulaxx-mcaq-wdudo) vax 11/29/21 Recorded SARS-CoV-2 (COVID-19) mRNA BNT-162b2 [...] Maintenance, 06/22/24 4:21:00 PM EST, [id number], 179, cm, 06/10/24 8:17:00 EST, Height, 111, [...] AM EDT, 12/23/24 9:40:00 AM EDT, Tablet, [facility]/pharmacy #[id number], Partial fill upon patient request [...] AM EDT, 12/23/24 9:57:00 AM EDT, Tablet, [facility]/pharmacy #[id number], Partial fill upon patient request [...] 9:06:00 AM EDT, Route to Pharmacy Electronically, [facility]/pharmacy #[id number], Partialfill upon patient request if the [...] Refills, Maintenance, 06/01/24 9:42:00 AM EDT, Capsule, [facility]/pharmacy #[id number], Partial fill upon patient request [...] Refills, Maintenance, 10/22/21 10:29:00 AM EDT, [facility], Partial fill upon patient request if [...] Refills, Maintenance, 10/23/21 3:23:00 PM EDT, Tablet, [facility]/pharmacy #[id number], Partial fill upon patient request [...] 7:32:00 AM EST, Route to Pharmacy Electronically, [id number], 179, cm, 06/10/24 8:17:00 EST, Height, 111, [...] Refills, Soft Stop, 06/01/24 9:47:00 AM EDT, [facility]/pharmacy #[id number], Partial fill upon patient request [...] 6 Refills, Maintenance, 08/25/24 5:05:00 PM EST, [facility], 179, cm, 06/10/24 8:17:00 EST, Height, 111, kg, 04/14/24 7:24:00 EDT, Dry Weight Start Date: 08/25/24 Status: Ordered Quantity: 60.0 Unit: Unknown Repeat number: 1 valsartan 40 mg oral tablet 1, tablet, By Mouth, 2 times a day, # 180 tablet, Refills 1, Maintenance, 06/14/24 7:26:00 AM EST, Route to Pharmacy Electronically, [id number], 179, cm, 06/10/24 8:17:00 EST, Height, 111, [...] Maintenance, 10/22/21 10:11:00 AM EDT, Tablet, [facility], Partial fill upon patient [...] Refills, Maintenance, 12/09/24 4:55:00 PM EDT, Tablet, [facility]/pharmacy #[id number], Partial fill upon patient request [...] disease) Confirmed Active Pulmonary nodules Confirmed Active JAYLON (obstructive sleep apnea) Confirmed Active Severe obesity (BMI 35.0-39.9) with comorbidity Confirmed Active Sleep apnea Confirmed Active History of tobacco use Confirmed Active Type 2 diabetes mellitus with peripheral angiopathy Confirmed Active Social History Social History Type Response Tobacco Use: Former Smoker. Sex Sex Representation Male (finding) Patient Care team information Care Team Personnel Name: Gilda Atkinson RN Position: [facility] RN Member Role: Primary Care Nurse Name: Tito Pierce MD Position: Reference Physician Member Role: PCP Address: [address] [place] [address] [address] [place], [place] [address] Telecom: Name: Rina Stringer RN Position: [facility] RN Member Role: Primary Care Nurse Name: Natalya Yost RN Position: S RN Member Role: Primary Care Nurse Name: Emily Tapia RN Position: [facility] RN Member Role: Primary Care Nurse Name: Estela Lugo RN Position: S RN Member Role: Primary Care Nurse Name: Matthew Cueto RN Position: [facility] RN Member Role: Primary Care Nurse Name: Haley Irene RN Position: [facility] RN Member Role: Primary Care Nurse Name: Kaley Feng RN Position: [facility] RN Member Role: Primary Care Nurse Name: Natalya Davis RN Position: [facility] RN Member Role: Primary Care Nurse Name: Kaylene Reid RN Position: [facility] RN Member Role: Primary Care Nurse Name: Cedric Dodson RN Position: [facility] RN Member Role: Primary Care Nurse Name: Cory Zhou RN Position: [facility] RN Member Role: Primary Care Nurse Name: Deni Gramajo MD Position: S Outreach Member Role: Lifetime Consulting Physician Address: [address] [facility] [place], [place] [address] Telecom: Name: Brenda Mackenzie RN Position: [facility] RN Member Role: Primary Care Nurse Name: Elsa Hawkins RN Position: [facility] RN Member Role: Primary Care Nurse Name: Malathi Borges RN Position: [facility] RN Member Role: Primary Care Nurse Name: Riley Urias MD Position: [facility] Renal MD Member Role: Lifetime Consulting Physician Address: [address] [facility] [place], [place] [address] Telecom: Name: Heide Carrero RN Position: [facility] RN Member Role: Primary Care Nurse Name: Janett Venegas RN Position: [facility] AMB Nurse Member Role: Primary Care Nurse Name: Jorgito Kim RN Position: [facility] RN Member Role: Primary Care Nurse Name: Alberta Doherty RN Position: [facility] SN RN Member Role: Primary Care Nurse Name: Caprice Hinds RN Position: [facility] RN Member Role: Primary Care Nurse Name: Gillian Uriostegui RN Position: [facility] Hospital Train Clerk Member Role: Primary Care Nurse Name: Heide Soriano RN Position: [facility] RN Member Role: Primary Care Nurse Name: Carie Geiger RN Position: [facility] RN Member Role: Primary Care Nurse Care Team Related Persons Name: DELFINA MUNOZ Name: ANMOL MUNOZ Insurance Providers Guarantor name: MATHIEU MUNOZ Health Plan Information #: 1 Payer: MEDICARE B Payer Identifier: Member Number: [id number] Group Number: Subscriber Identifier: [id number] Relationship to Subscriber: self Coverage Type: NA Coverage Verification Date: Telecom: NA Address: Health Plan Information #: 2 Payer: JENNIFER CHAIDEZ Payer Identifier: Member Number: [id number] Group Number: Subscriber Identifier: [id number] Relationship to Subscriber: self Coverage Type: Medicare Other Coverage Verification Date: Telecom: Address:
--- OUTSIDE RECORDS SUMMARY | 2025-02-11 08:36 | XMS_ITS | Clinical Summary ---
Author Organization [facility] it Address [address] [place] [address] Care Team Providers Care Dog Catcher Name Role Phone Unavailable Primary Care Provider [...] 07/09/2021, 11/09/2020, Additional history exists Influenza Vaccine (#1) 2025 , 05/19/2019, 05/11/2018, Additional history exists RSV Immunization [...]
[2025-02-11 08:38] LABS: Prothrombin Time Whole Bld POC 26.8 sec (11.1-13.5); ~PT, ~INR - Anti Coag Clinic 2.2 (0.9-1.1)
--- NOTE | 2025-02-11 08:44 | MHC.OFFVISCO ---
Intake Intake Visit Reasons: Anticoagulation Allergies nicotine Allergy (Intermediate, Verified 02/11/25 08:32) Rash fish derived (FISH) Allergy (Unknown, Verified 02/11/25 08:32) ANGIOEDEMA tamsulosin (Flomax) Adverse Reaction (Intermediate, Verified 02/11/25 08:32) nightmares Medication List - Last Reconciled 02/11/25 by Marie Shaver, RN albuterol sulfate mg inhalation Q6H PRN albuterol sulfate 90 mcg/actuation inhalation blood sugar diagnostic (FreeStyle Lite Strips) daily blood-glucose meter (FreeStyle [place] Lite kit) As directed cetirizine 10 mg PO DAILY PRN [custom heat molded multidensity innersoles wear 3 pairs of custom heat molded multidensity innersoles wear] diclofenac sodium 1% 2 grams topical QID docusate sodium (Stool Softener) 100 mg PO DAILY [extra depth orthopedic shoes with 3 pairs of custom heat molded multidensity innersoles wear] fluticasone propionate 50 mcg/actuation 1 spray intranasal DAILY idwfmvogboo-imxeinpbq-chrxqmqh 100-62.5-25 mcg (Trelegy Ellipta) 1 ea inhalation DAILY furosemide 40 mg PO QAM glimepiride 1 mg PO DAILY hydrocortisone 2.5% appl topical lancets (FreeStyle Lancets) test daily metformin 1,000 mg PO BID metoprolol succinate ER 50 mg PO DAILY omeprazole 40 mg PO DAILY polyethylene glycol 3350 (Miralax) 17 grams PO DAILY prednisone mg PO saw palmetto 450 mg PO BID solifenacin 10 mg PO DAILY triamcinolone acetonide 0.1% 1 appl topical BID-TID vitamins A,C,G-digu-rfhfpf 2,148 mcg-113 mg-45 mg-17.4mg (PreserVision AREDS) 1 tab PO BID warfarin 7.5 mg See Protocol PO DAILY MDD 1.5 tablets daily Nursing Note INR: 2.2 in therapeutic range of 2-3 Medications and supplements reviewed No changes in health, diet, medications, or supplements, Denies any signs and symptoms of bleeding or bruising or clotting. Bleeding, bruising, clotting discussed Nutritional guidance given Dose: 7.5mg X 4 days and 11.25mg X 3 days F/U INR: 3 weeks Patient verbalizes understanding of instructions given Anti-Coag Initial Assessment Social Hx Patient Tobacco Use Status: Former Tobacco user Tobacco use type: Cigarette alcohol intake: current Alcohol intake frequency: holidays/special occasions only Cardiovascular Hx: HTN, CHF and Cardiomyopathy Lung Disease HX: Asthma, COPD and DVT/PE Endocrine Hx: Diabetes Blood Disorder Hx: Other GI Hx: Other Cancer HX: No Coding Level of Care Code Est Patient Level 1 Diagnoses Current use of anticoagulant therapy Z79.01 Assessment & Plan Assessment & Plan (1) Current use of anticoagulant therapy: Code(s): Z79.01 - halfway (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
== END 2025-02-11 09:00 | disposition home or self-care (01) ==
LOC: HO.ACS 08:31
PROVIDERS: PCP Internal Medicine; Visit Provider Internal Medicine Medical Oncology
DX: Z79.01 Long term (current) use of anticoagulants (principal)

== ENCOUNTER → 2025-02-11 08:31 | Outpatient (BNVA) | payer MEDICARE, OTHER, SELFPAY | PROVIDERS: PCP Internal Medicine; Visit Provider Internal Medicine Medical Oncology | DX: I26.99 Other pulmonary embolism without acute cor pulmonale (principal); Z79.01 Long term (current) use of anticoagulants; Z51.81 Encounter for therapeutic drug level monitoring | CPT/HCPCS: 85610; 99211 ==

== ENCOUNTER 2025-02-15 14:44 | Outpatient (AMB) | payer MEDICARE, OTHER, SELFPAY ==
[2025-02-15 14:48] VITALS: BP 120/82; PULSE 90; O2SAT 90; BMI 35.5
--- NOTE | 2025-02-15 14:48 | MHC.PC.OV ---
Vital Signs 02/15/25 14:48 Height 5 ft 10 in Weight 247 lb 4 oz BMI 35.5 BP 120/82 Blood Pressure Location Lt brachial Position Sitting Pulse 90 Pulse Source Pulse Oximeter Pulse Oximetry (%) 90 L Oxygen Delivery Method Room Air Intake Visit Reasons: ANGIE from Dr. Campoverde/ follow up Systems Test Technician Required: No Accompanied by: Self / Same As Patient Allergies nicotine Allergy (Intermediate, Verified 02/15/25 15:31) Rash fish derived (FISH) Allergy (Unknown, Verified 02/15/25 15:31) ANGIOEDEMA tamsulosin (Flomax) Adverse Reaction (Intermediate, Verified 02/15/25 15:31) nightmares Medication List - Last Reconciled 02/15/25 by Tito Pierce MD albuterol sulfate mg inhalation Q6H PRN albuterol sulfate 90 mcg/actuation inhalation blood sugar diagnostic (FreeStyle Lite Strips) daily blood-glucose meter (FreeStyle [place] Lite kit) As directed cetirizine 10 mg PO DAILY PRN [custom heat molded multidensity innersoles wear 3 pairs of custom heat molded multidensity innersoles wear] diclofenac sodium 1% 2 grams topical QID docusate sodium (Stool Softener) 100 mg PO DAILY [extra depth orthopedic shoes with 3 pairs of custom heat molded multidensity innersoles wear] fluticasone propionate 50 mcg/actuation 1 spray intranasal DAILY tlpfkojjltv-iwtthrtme-objeqptw 100-62.5-25 mcg (Trelegy Ellipta) 1 ea inhalation DAILY furosemide 40 mg PO QAM glimepiride 1 mg PO DAILY hydrocortisone 2.5% appl topical lancets (FreeStyle Lancets) test daily metformin 1,000 mg PO BID metoprolol succinate ER 50 mg PO DAILY omeprazole 40 mg PO DAILY polyethylene glycol 3350 (Miralax) 17 grams PO DAILY prednisone mg PO saw palmetto 450 mg PO BID solifenacin 10 mg PO DAILY triamcinolone acetonide 0.1% 1 appl topical BID-TID vitamins A,C,K-ybms-kwkkcj 2,148 mcg-113 mg-45 mg-17.4mg (PreserVision AREDS) 1 tab PO BID warfarin 7.5 mg See Protocol PO DAILY MDD 1.5 tablets daily Tobacco use date assessed: 02/15/25 Fall risk assessment: No Falls in past year Last assessed Fall Risk: 02/15/25 Dental Screening Dental Screen Date: 02/15/25 Did you have a dental visit in the last 12 months?: No Did you have a dental problem in the last 6 months where you did not have access to dental care?: No Was dental information given to patient?: No HPI ANGIE from Dr. Campoverde/ follow up HPI Details Patient comes in today for his follow-up visit - is transferring over from Dr. Campoverde, who retired from the practice a few months ago Patient states that he currently feels okay States that he has been taking Coumadin for many years now and is wondering if there are any better alternatives and if the newer anticoagulants like Eliquis would be appropriate for him or not He denies any headaches or dizziness Denies any chest pains, no increased shortness of breath No nausea/vomiting, no abdominal pain No change in bowel habits noted PFSH Medical History (Updated 02/21/25 @ 02:46 by Tito Pierce MD) Overactive bladder History of prostate cancer Allergic rhinitis Asthma-COPD overlap syndrome Coronary artery disease Diabetes mellitus Essential hypertension Severe obesity (BMI 35.0-35.9 with comorbidity) Screening for diabetes mellitus Obesity Hypertension Cardiomyopathy COVID-19 Asthma Surgical History (Updated 02/21/25 @ 02:26 by Tito Pierce MD) History of surgery History of colonoscopy History of transurethral resection of prostate History of cystoscopy Status post orchiopexy History of eye surgery History of tonsillectomy Family History Father Heart disease Mother Colon cancer Brother No problems noted. Brother No problems noted. Sister No problems noted. Social History Housing: House Alcohol intake: current Alcohol intake frequency: holidays/special occasions only Patient Tobacco Use Status: Former Tobacco user Tobacco use type: Cigarette Years Smoked: 50 e-Cigarette/Vaping Use: Never Used Second Hand Smoke Exposure: Yes service: No Current occupational status: employed and retired Current occupation: retired Cognitive needs: No Hearing needs: No Vision needs: Yes Questionnaire PHQ-9 Over the last 2 weeks, how often have you been bothered by any of the following problems? 1. Little interest or pleasure in doing things: not at all 2. Feeling down, depressed, or hopeless: not at all 3. Trouble falling or staying asleep, or sleeping too much: not at all 4. Feeling tired or having little energy: several days 5. Poor appetite or overeating: not at all 6. Feeling bad about yourself - or that you are a failure or have let yourself or your family down: not at all 7. Trouble concentrating on things, such as reading the newspaper or watching television: not at all 8. Moving or speaking so slowly that other people could have noticed. Or the opposite - being so fidgety or restless that you have been moving around a lot more than usual: not at all 9. Thoughts that you would be better off or of hurting yourself in some way: not at all Total score: 1 Depression Screening Interpretation: Negative Depression Screening Done: Yes 29108 - PHQ-9 Billing: Yes Source: Developed by Drs. Arnoldo Sarah, Julita Uriostegui, Vega Miller and colleagues, with an educational marisa from [employer]. Thrive Questionnaire Date Thrive assessed: 02/15/25 I am a: Patient What is your living situation today?: I have a steady place to live Within the past 12 months, did the food you bought not last and you didn't have the money to get more?: Never true Within the past 12 months, did you worry whether your food would run out before you got money to buy more?: Never true Do you have trouble paying for medicines?: No Do you have trouble getting transportation to medical appointments?: No Do you have trouble paying your heating and electricity bill?: No Do you have trouble taking care of your child, family member or friend?: No Do you have trouble with day-to-day activities such as bathing, preparing meals, shopping, managing finances, etc.?: No Are you currently unemployed and looking for a job?: No Are you interested in more education?: No Please select the resources that you would like help with: None Currently or been in a relationship where the following occur: No concerns reported THRIVE Score: 0 AUDIT C Alcohol Use Questionnaire (AUDIT-C) 1. How often do you have a drink containing alcohol?: Monthly or less 2. How many drinks containing alcohol do you have on a typical day when you are drinking?: 1 or 2 3. How often do you have six or more drinks on one occasion?: Never Total Score: 1 Score Reviewed/Action Taken: Yes CAYDEN-7 AMB Questionnaire CAYDEN-7 Date CAYDEN - 7 assessed: 02/15/25 Feeling nervous, anxious, or on edge: 0 = Not at all Not being able to stop or control worryin = Not at all Worrying too much about different things: 0 = Not at all Trouble relaxin = Not at all Being so restless that it is hard to sit still: 0 = Not at all Becoming easily annoyed or irritable: 0 = Not at all Feeling afraid as if something awful might happen: 0 = Not at all Total CAYDEN-7 score (0-4 normal; 5-9 mild; 10-14 moderate; 15-21 severe): 0 Source: Developed by Drs. Arnoldo Sarah, Julita Uriostegui, Vega Miller and colleagues, with an educational marisa from [employer]. Review of Systems Const Denies chills, Denies fatigue, Denies fever(s) and Denies headache(s) ENT Denies dysphagia, Denies dizziness, Denies otalgia, Denies headache(s), Denies neck pain, Denies odynophagia and Denies sore throat Card Denies chest pain, Denies palpitations and Denies dyspnea Resp Denies chest congestion, Denies cough and Denies dyspnea GI Denies abdominal pain, Denies constipation, Denies dysphagia, Denies heartburn, Denies diarrhea, Denies nausea, Denies odynophagia and Denies vomiting Denies difficulty urinating, Denies dysuria, Denies nocturia and Denies urinary frequency Musc Denies back pain and Denies neck pain Skin/Breast Denies rash Neuro Denies dizziness and Denies headache(s) Endo Denies fatigue and Denies palpitations Physical exam (Primary Care) Vital Signs: Last Vital Signs Pulse 90 02/15/25 14:48 BP 120/82 02/15/25 14:48 Pulse Ox 90 L 02/15/25 14:48 Oxygen Delivery Method Room Air 02/15/25 14:48 BMI result Body Mass Index 35.5 Tobacco/Smoking Status: Tobacco use Status Tobacco use date assessed 02/15/25 02/15/25 14:53 Patient Tobacco Use Status Former Tobacco user 02/15/25 14:53 Tobacco use type Cigarette 02/15/25 14:53 e-Cigarette/Vaping Use Never Used 02/15/25 14:53 PHQ-9: PHQ-9 Score PHQ-9: Total score 1 02/15/25 15:42 Depression Screening Interpretation: Negative Thrive Assessment: Date of Thrive Assessment Date Thrive assessed 02/15/25 02/15/25 14:53 Currently or been in a relationship where the following occur: No concerns reported Const General: no acute distress and alert HENMT Ears: TM's normal bilaterally and EAC's normal Throat: Yes posterior oropharynx normal and Yes tonsils normal (no TP congestion) Neck Neck: Yes supple and No lymphadenopathy Thyroid: Thyroid normal Resp Auscultation: clear to auscultation bilaterally, no rales and no wheezes Cardio Rate: regular rate Rhythm: regular rhythm Heart sounds: no murmurs GI Palpation (GI): Soft to palpation and nontender Auscultation: normal bowel sounds General: Yes no CVA tenderness Back/Spine/Pelvis Back: no CVA tenderness Thoracic/Lumbar Spine: No lumbar spinal tenderness Skin Rashes: no rashes Extrem General: Yes no clubbing, cyanosis or edema Coding Level of Care Code Est Pt Level 4 (38471) Diagnoses Chronic congestive heart failure, unspecified heart failure type I50.9 Heart failure type: unspecified Heart failure chronicity: chronic Type 2 diabetes mellitus without complication, without long-term current use of insulin E11.9 Diabetes mellitus type: type 2 Diabetes mellitus termite 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 insulin use: without fdc use Diabetes mellitus complication status: without complication Chronic pulmonary embolism without acute cor pulmonale, unspecified pulmonary embolism type I27.82 Pulmonary embolism type: unspecified Chronicity: chronic Acute cor pulmonale presence: without acute cor pulmonale Asthma-COPD overlap syndrome J44.89 Gastroesophageal reflux disease without esophagitis K21.9 Esophagitis presence: without esophagitis Allergic rhinitis, unspecified seasonality, unspecified trigger J30.9 Allergic rhinitis trigger: unspecified Allergic rhinitis seasonality: unspecified History of prostate cancer Z85.46 Overactive bladder N32.81 Additional Codes PHQ-9 - 18138 - PHQ-9 Billing: Yes ([id number]) Assessment & Plan Assessment & Plan (1) Congestive heart failure: Code(s): I50.9 - Heart failure, unspecified Category: Medical Qualifiers: Heart failure type: unspecified Heart failure chronicity: chronic Qualified Code(s): I50.9 - Heart failure, unspecified Plan: Compensated Continue Furosemide 40 mg Q AM and Metoprolol ER 50 mg QD Follow up with cardiology as scheduled (2) Diabetes mellitus: Code(s): E11.9 - Type 2 diabetes mellitus without complications Category: Medical Qualifiers: Diabetes mellitus type: type 2 Diabetes mellitus termite 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 insulin use: without fdc use Diabetes mellitus complication status: without complication Qualified Code(s): E11.9 - Type 2 diabetes mellitus without complications Plan: His HgbA1c was at 6.3% when it was most recently checked in October 2024 - goal is at least <7.0% but ideally <6.5% Reinforced diabetic diet Continue Glimepiride 1 mg QD and Metformin 1000 mg BID Will recheck his labs and HgbA1c in 3 months for follow up (3) Pulmonary embolism: Code(s): I26.99 - Other pulmonary embolism without acute cor pulmonale Category: Medical Qualifiers: Pulmonary embolism type: unspecified Chronicity: chronic Acute cor pulmonale presence: without acute cor pulmonale Qualified Code(s): I27.82 - Chronic pulmonary embolism Plan: Continue Coumadin 7.5 mg QD Per request, will try starting him instead on Eliquis 5 mg BID but patient is advised that if his insurance does not cover this or if this is too expensive for him, then he should continue on his current dose of Counadin daily (4) Asthma-COPD overlap syndrome: Code(s): J44.89 - Other specified chronic obstructive pulmonary disease Category: Medical Plan: Continue Trelegy Ellipta 100-62.5-25 mcg 1 inhalation QD and Albuterol HFA 2 inhalations Q 6 hours PRN Follow up with pulmonary as scheduled (5) GERD (gastroesophageal reflux disease): Code(s): K21.9 - Gastro-esophageal reflux disease without esophagitis Category: Medical Qualifiers: Esophagitis presence: without esophagitis Qualified Code(s): K21.9 - Gastro-esophageal reflux disease without esophagitis Plan: Dietary restrictions reinforced Continue Omeprazole 40 mg QD (6) Allergic rhinitis: Code(s): J30.9 - Allergic rhinitis, unspecified Category: Medical Qualifiers: Allergic rhinitis trigger: unspecified Allergic rhinitis seasonality: unspecified Qualified Code(s): J30.9 - Allergic rhinitis, unspecified Plan: Continue Cetirizine 10 mg QD PRN and Fluticasone 50 mcg nasal spray QD PRN (7) History of prostate cancer: Code(s): Z85.46 - Personal history of malignant neoplasm of prostate Category: Medical Plan: Follow-up with urology as scheduled for continuing surveillance (8) Overactive bladder: Code(s): N32.81 - Overactive bladder Category: Medical Plan: Continue Solifenacin 10 mg QD Follow up with urology as scheduled Plan Follow up in 3 months Orders: Orders Complete Blood Count Auto Diff 3 Months D64.9 - Anemia, unspecified Comprehensive Meally. Panel Fast 3 Months E78.00 - Pure hypercholesterolemia, unspecified Vitamin B12 and Folate 3 Months E53.8 - Deficiency of other specified B group vitamins Lipid Panel 3 Months E78.00 - Pure hypercholesterolemia, unspecified Microalbumin, Random (w Creat) 3 Months E11.9 - Type 2 diabetes mellitus without complications Hemoglobin A1c 3 Months E11.9 - Type 2 diabetes mellitus without complications UA CC w/rflx Micro + Cult 3 Months R30.0 - Dysuria TSH reflex Free T4 3 Months E78.00 - Pure hypercholesterolemia, unspecified Vitamin D 25-OH Total 3 Months E55.9 - Vitamin D deficiency, unspecified Medications: New apixaban (Eliquis) 5 mg PO BID 180 tabs 1RF 90 days
--- OUTSIDE RECORDS SUMMARY | 2025-02-15 16:05 | XMS_ITS | Clinical Summary ---
Author Organization [facility] it Address [address] [place] [address] Care Team Providers [facility] Director Name Role Phone Unavailable Primary Care Provider [...]
== END 2025-02-15 15:44 | disposition home or self-care (01) ==
LOC: HO.HMCH 14:45
PROVIDERS: PCP Internal Medicine; Visit Provider Internal Medicine
DX: I50.9 Heart failure, unspecified (principal); E11.9 Type 2 diabetes mellitus without complications; I27.82 Chronic pulmonary embolism; J44.89 Other specified chronic obstructive pulmonary disease; K21.9 Gastro-esophageal reflux disease without esophagitis; J30.9 Allergic rhinitis, unspecified; Z85.46 Personal history of malignant neoplasm of prostate; N32.81 Overactive bladder

== ENCOUNTER → 2025-02-15 14:44 | Outpatient (BNVA) | payer MEDICARE, OTHER, SELFPAY | PROVIDERS: PCP Internal Medicine; Visit Provider Internal Medicine | DX: I50.9 Heart failure, unspecified (principal); E11.9 Type 2 diabetes mellitus without complications; I27.82 Chronic pulmonary embolism; J44.89 Other specified chronic obstructive pulmonary disease; K21.9 Gastro-esophageal reflux disease without esophagitis; N32.81 Overactive bladder; Z85.46 Personal history of malignant neoplasm of prostate | CPT/HCPCS: 96127; 99212 ==

== ENCOUNTER 2025-03-04 07:59 | Outpatient (AMB) | payer MEDICARE, OTHER, SELFPAY ==
--- OUTSIDE RECORDS SUMMARY | 2025-03-04 08:01 | XMS_ITS | Clinical Summary ---
Author Organization [facility] Address [address] [address] Phone Care Team Providers Care Ad Operations Associate Name Role Phone Jonathan Campoverde MD Primary Care Provider [phone] Allergies Active Allergy Reactions Criticality Noted Date Comments Other Bronchospasm 01/25/2025 fish Medications predniSONE (DELTASONE) 10 MG tablet Take 10 mg by mouth as directed. Active albuterol 2.5 mg /3 mL (0.083 %) nebulizer solution Take 2.5 mg by nebulization 4 (four) times a day as needed. Active furosemide (LASIX) 40 MG tablet Take 40 mg by mouth every morning. Active glimepiride (AMARYL) 1 MG tablet Take 1 tablet by mouth every morning. Active metFORMIN (GLUCOPHAGE) 1000 MG tablet Take 1 tablet by mouth 2 (two) times a day. 5 Active metoprolol succinate (TOPROL-XL) 50 MG 24 hr tablet Take 1 tablet by mouth every morning. 5 Active omeprazole (PRILOSEC) 40 MG capsule Take 1 capsule by mouth every morning. Active warfarin (COUMADIN) 7.5 MG tablet Take 7.5 mg by mouth daily. 5 Active TRELEGY ELLIPTA 100-62.5-25 mcg inhalation powder Inhale 1 puff into the lungs daily. 5 Active Encounters Date Type Department Care Team Description 01/25/2025 10:00 AM EDT Office Visit [address] [address] Yovani Covarrubias MD, PhD Reticular pseudodrusen (Primary Dx); Intermediate stage nonexudative age-related macular degeneration of both eyes from Last 3 Months Social History Tobacco Use Types Packs/Day Years Used Date Smoking Tobacco: Some Days Cigarettes Tobacco Cessation:Ready to Q uit: Not Asked; Counseling Given: Not Answered Education Answer Date Recorded Are you interested in more education? Not on beverly e 06/03/2024 Are you concerned about learning? Not on file 06/03/2024 No 06/03/2024 No 06/03/2024 Digital Access Answer Date Recorded No 06/03/2024 No 06/03/2024 Reliable internet access at home? Not on file 06/03/2024 Device with a working camera? Not on file Sex and Gender Information Value Date Recorded Sex Assigned at Not on file Legal Sex Male 10:00 PM EDT Gender Identity Not on file Sexual Orientation Not on file Plan of Treatment Health Maintenance Due Date Last Done Comments Adult Td,Tdap Booster 1951 CREATININE LEVEL 1951 LIPID PANEL 1951 DEPRESSION SCREENING 1963 SMOKING Hx and SMOKELESS TOB ACCO SCREENING 1964 HEPATITIS C SCREENING 1969 PNEUMOCOCCAL VACCINES (50+ y ears) (1 of 2 - PCV) 1970 COLOGUARD 1996 COLONOSCOPY 1996 COLORECTAL CANCER SCREENING 1996 FIT TEST 1996 FOBT 1996 SIGMOIDOSCOPY 1996 VIRTUAL COLONOSCOPY 1996 ZOSTER VACCINES (1 of 2) 2001 ABDOMINAL AORTIC ANEURYSM (A AA) SCREENING 2016 COVID-19 VACCINE ( - 2023-2 5 season) 2024 RSV VACCINE (1 - 1-dose 75+ series) 2026 HEPATITIS A VACCINES Aged Out No long er eligible based on patient's age to complete this topic HIB VACCINES Aged Out No longer eligi ble based on patient's age to complete this topic MENINGOCOCCAL VACCINES (ACWY) Aged Out No longer eligible based on patient's age to complete this topic MENINGOCOCCAL VACCINES (B) Aged Out N o longer eligible based on patient's age to complete this topic Medical Devices Not on file Procedures Procedure Name Priority Date/Time Associated Diagnosis Comments ELECTRORETINOGRAPHY (ERG) - OU - BOTH EYES Routine 01/25/2025 1:29 PM EDT Reticular pseudodrusen AUTOFLUORESCENCE - OU - BOTH EYES Routine 01/25/2025 11:24 AM EDT Reticular pseudodrusen FUNDUS PHOTOS - OU - BOTH EYES Routine 01/25/2025 11:24 AM EDT Reticular pseudodrusen OCT, RETINA - OU - BOTH EYES Routine 01/25/2025 11:24 AM EDT Reticular pseudodrusen GOLDMANN PERIMETRY, EXTENDED - OU - BOTH EYES Routine 01/25/2025 10:54 AM EDT Reticular pseudodrusen from Last 3 Months Results * Electroretinography (ERG) - OU - Both Eyes (01/25/2025 1:29 PM EDT) Pathologist [facility] ERG Implicit Time (OS) - Left Eye 33 25 - 32 msec HARMONY ERG Implicit Time (OD) - Right Eye 33 25 - 32 msec HARMONY ERG Amplitude White 8 - 30 Hz (OS) - Left Eye 49 50 - 125 mcV HARMONY ERG Amplitude White 8 - 30 Hz (OD) - Right Eye 51 50 - 125 mcV HARMONY ERG Amplitude White 8 - 0.5 Hz (OS) - Left Eye 248 350 - 700 mcV HARMONY ERG Amplitude White 8 - 0.5 Hz (OD) - Right Eye 324 350 - 700 mcV HARMONY ERG Amplitude Blue 8 - 0.5 Hz (OS) - Left Eye 60 100 - 275 mcV HARMONY ERG Amplitude Blue 8 - 0.5 Hz (OD) - Right Eye 103 100 - 275 mcV HARMONY Anatomical Region Laterality Modality Head Other Narrative 01/26/2025 10:14 PM EDT Tech comments: yc/1:05pm. Right Eye Lens prep used was: Carboxymethylcellulose sodium 1%. Blue 8 0.5 Hz (uV): 103 mcV. White 8 0.5 Hz (uV): 324 mcV. White 8 30 Hz (uV): 51 mcV. White 8 Implicit Time (uV) 33 msec. At the time of the exam, pupils were dilated to a size of 9 mm. The test was performed using lens number [id number]. Left Eye Lens prep used was: Carboxymethylcellulose sodium 1%. Blue 8 0.5 Hz (uV): 60 mcV. White 8 0.5 Hz (uV): 248 mcV. White 8 30 Hz (uV): 49 mcV. White 8 Implicit Time (uV) 33 msec. At the time of the exam, pupils were dilated to a size of 9 mm. The test was performed using lens number [id number]. General Details Testing performed by: yc. Notes Where applicable, responses are compared to this clinic's internal age- and refraction-based normative ranges. Nilton-isolated response amplitudes are normal in each eye. Mixed nilton-cone response amplitudes are normal in each eye. Cone-isolated 30 Hz flicker responses are normal in amplitude and normal in timing in each eye. Summary: Normal nilton and cone function us Yovani Covarrubias MD, PhD OPHTHALMOLOGY IMAGING F inal Result * Autofluorescence - OU - Both Eyes (01/25/2025 11:24 AM EDT) Anatomical Region Laterality Modality Head Optical Coherenc e Tomography Narrative 01/26/2025 10:15 PM EDT OU slight stippling of macula OS hypoFAF superior to fovea us Yovani Covarrubias MD, PhD OPHTHALMOLOGY IMAGING F inal Result * Fundus Photos - OU - Both Eyes (01/25/2025 11:24 AM EDT) Anatomical Region Laterality Modality Head Photography Narrative 01/26/2025 10:14 PM EDT Normal pattern both eyes with a small parencentral spot of hypoAF in the OS us Yovani Covarrubias MD, PhD OPHTHALMOLOGY IMAGING F inal Result * OCT, RETINA - OU - BOTH EYES - (01/25/2025 11:24 AM EDT) Narrative [facility] - 01/26/2025 10:13 PM EDT OD: reticular pseudodrusen, no fluid OS: reticular pseudodrusen, no fluid, small area of ONL and RPE atrophy in superior perifovea. Yovani Covarrubias MD, PhD OPHTHALMOLOGY IMAGING F inal Result [facility] * Goldmann Perimetry, Extended - OU - Both Eyes (01/25/2025 10:54 AM EDT) Anatomical Region Laterality Modality Head Visual Field Narrative 01/26/2025 10:14 PM EDT Right Eye Reliability/Fixation was good. Testing with the I4e light revealed: normal observations. Testing with the V4e light revealed: normal observations. Left Eye Reliability/Fixation was good. Testing with the I4e light revealed: normal observations. Testing with the V4e light revealed: normal observations. General Details Testing performed by: anastasia. Notes I2e: full field with small paracentral scotoma in both eyes. Small mild relative paracentral scotomas in both eyes. Yovani Cvoarrubias MD, PhD OPHTHALMOLOGY IMAGING F inal Result from Last 3 Months Insurance MEDICARE PART A & B [facility] [employer] ENHANCE SUPPLEMENT MEDICARE PART A & B [facility] MEDICARE ENHANCE SUPPLEMENT MEDICARE PART A & B Member Subscriber Plan / Payer (Ef fective 2017-Present) Name:Sonjapolo Otis Member ID:[id number] Relation to Subscriber:Self Name:Sonjapolo Otis Subscriber ID:[id number] Payer ID:[id number] Group ID:Not on file Type:Medicare Address: [employer] [address] [place] [id number] [facility] MEDICARE ENHANCE SUPPLEMENT MEDICARE PART A & B [facility] MEDICARE ENHANCE SUPPLEMENT MEDICARE PART A & [place] [address] [place] [address] MEDICARE ENHANCE SUPPLEMENT MEDICARE PART A & B [facility] MEDICARE ENHANCE SUPPLEMENT Care Teams Ad Operations Associate Relationship Specialty Start Date End Date Jonathan Campoverde MD [address] [place] [address] [place] [address] PCP - General Internal Medicine 06/03/24 Additional Source Comments The information contained in this document represents components of the legal health record. It is not the complete legal health record.[facility]
--- OUTSIDE RECORDS SUMMARY | 2025-03-04 08:01 | XMS_ITS | Clinical Summary ---
Author Organization [facility] it Address [address] [place] [address] Care Team Providers Care Manager Filter Name Role Phone Unavailable Primary Care Provider [...] 2024 11/29/2021, 07/09/2021, 11/09/2020, Additional history exists Depression Screening 08/04/2024 Influenza Vaccine (#1) 2025 , 05/19/2019, 05/11/2018, [...]
[2025-03-04 08:16] LABS: Prothrombin Time Whole Bld POC 39.8 sec (11.1-13.5); ~PT, ~INR - Anti Coag Clinic 3.3 (0.9-1.1)
--- NOTE | 2025-03-04 14:20 | MHC.OFFVISCO ---
Intake Intake Visit Reasons: Anticoagulation Allergies nicotine Allergy (Intermediate, Verified 03/04/25 08:09) Rash fish derived (FISH) Allergy (Unknown, Verified 03/04/25 08:09) ANGIOEDEMA tamsulosin (Flomax) Adverse Reaction (Intermediate, Verified 03/04/25 08:09) nightmares Nursing Note INR: 3.3 out of therapeutic range Medications and supplements reviewed No changes in health, diet, medications, or supplements, Denies any signs and symptoms of bleeding or bruising or clotting. Bleeding, bruising, clotting discussed Nutritional guidance given - review food list weekly, eat greens today and weekly Dose: same F/U INR: 3 weeks Patient verbalizes understanding of instructions given Anti-Coag Initial Assessment Social Hx Patient Tobacco Use Status: Former Tobacco user Tobacco use type: Cigarette alcohol intake: current Alcohol intake frequency: holidays/special occasions only Cardiovascular Hx: HTN, CHF and Cardiomyopathy Lung Disease HX: Asthma, COPD and DVT/PE Endocrine Hx: Diabetes Blood Disorder Hx: Other GI Hx: Other Cancer HX: No Coding Level of Care Code Est Patient Level 1 Diagnoses Current use of anticoagulant therapy Z79.01 Results AMB INR Fingerstick AMB INR Fingerstick 3.3 Last Edit by Yakelin Jenkins RN on 03/04/25 08:15 manual entry Assessment & Plan Assessment & Plan (1) Current use of anticoagulant therapy: Code(s): 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
== END 2025-03-04 08:43 | disposition home or self-care (01) ==
LOC: HO.ACS 07:59
PROVIDERS: PCP Internal Medicine; Visit Provider Internal Medicine Medical Oncology
DX: Z79.01 Long term (current) use of anticoagulants (principal)

== ENCOUNTER → 2025-03-04 07:59 | Outpatient (BNVA) | payer MEDICARE, OTHER, SELFPAY | PROVIDERS: PCP Internal Medicine; Visit Provider Internal Medicine Medical Oncology | DX: Z51.81 Encounter for therapeutic drug level monitoring (principal); Z79.01 Long term (current) use of anticoagulants | CPT/HCPCS: 85610; 99211 ==

== ENCOUNTER 2025-03-17 08:04 | Outpatient (AMB) | payer MEDICARE, OTHER, SELFPAY ==
--- OUTSIDE RECORDS SUMMARY | 2025-03-17 08:06 | XMS_ITS | Clinical Summary ---
Author Organization [facility] Address [address] [address] Phone Care Team Providers Care Glass Novelty Maker Name Role Phone Jonathan Campoverde MD Primary Care Provider Allergies Active Allergy Reactions Criticality Noted Date [...] 1 tablet by mouth every morning. Active omeprazole (PRILOSEC) 40 MG capsule Take 1 capsule by mouth every morning. Active warfarin (COUMADIN) 7.5 MG tablet Take 7.5 mg by mouth daily. 5 Active TRELEGY ELLIPTA 100-62.5-25 mcg inhalation powder Inhale 1 puff into the lungs daily. 5 Active Encounters Date Type Department Care Team Description 01/25/2025 10:00 AM EDT Office Visit [address] [address] Yovani Covarrubias MD, PhD Reticular pseudodrusen (Primary [...] Eyes (01/25/2025 1:29 PM EDT) Pathologist [facility] ERG Implicit Time (OS) - Left Eye [...] relative paracentral scotomas in both eyes. Yovani Covarrubias MD, PhD OPHTHALMOLOGY IMAGING F inal Result from Last 3 Months Insurance MEDICARE PART A & B [facility] MEDIC[employer] ENHANCE SUPPLEMENT MEDICARE PART A & B [facility] MEDICARE ENHANCE SUPPLEMENT MEDICARE PART A & B Member Subscriber Plan / Payer (Ef fective 2017-Present) Name:Sonjapolo Otis Member ID:[id number] Relation to Subscriber:Self Name:Sonjapolo Otis Subscriber ID:[id number] Payer ID:[id number] Group ID:Not on file Type:Medicare Address: [employer] [address] [place] [phone] [facility] MEDICARE ENHANCE SUPPLEMENT MEDICARE PART A & B [facility] MEDICARE ENHANCE SUPPLEMENT MEDICARE PART A & [place] [address] MEDICARE ENHANCE SUPPLEMENT MEDICARE PART A & B [facility] MEDICARE ENHANCE SUPPLEMENT Care Teams Glass Novelty Maker Relationship Specialty Start Date End Date Jonathan Campoverde MD [address] [place] [address] [place] [address] PCP - General Internal Medicine 06/03/24 Additional Source Comments The information contained in this document represents components of the legal health record. It is not the complete legal health record.[facility]
--- OUTSIDE RECORDS SUMMARY | 2025-03-17 08:07 | XMS_ITS | Clinical Summary ---
Author Organization [facility] it Address [address] [place] [address] Care Team Providers Care Fleet Administrator Name Role Phone Unavailable Primary Care Provider [...]
[2025-03-17 08:12] LABS: Prothrombin Time Whole Bld POC 32.0 sec (11.1-13.5); ~PT, ~INR - Anti Coag Clinic 2.7 (0.9-1.1)
--- NOTE | 2025-03-17 08:21 | MHC.OFFVISCO ---
Intake Intake Visit Reasons: Anticoagulation Allergies nicotine Allergy (Intermediate, Verified 03/17/25 08:04) Rash fish derived (FISH) Allergy (Unknown, Verified 03/17/25 08:04) ANGIOEDEMA tamsulosin (Flomax) Adverse Reaction (Intermediate, Verified 03/17/25 08:04) nightmares Medication List - Last Reconciled 03/17/25 by Marie Shaver, RN albuterol sulfate mg inhalation Q6H PRN albuterol sulfate 90 mcg/actuation inhalation apixaban (Eliquis) 5 mg PO BID 90 days blood sugar diagnostic (FreeStyle Lite Strips) daily blood-glucose meter (FreeStyle [place] Lite kit) As directed cetirizine 10 mg PO DAILY PRN [custom heat molded multidensity innersoles wear 3 pairs of custom heat molded multidensity innersoles wear] diclofenac sodium 1% 2 grams topical QID docusate sodium (Stool Softener) 100 mg PO DAILY [extra depth orthopedic shoes with 3 pairs of custom heat molded multidensity innersoles wear] fluticasone propionate 50 mcg/actuation 1 spray intranasal DAILY xhlbcerwgft-vdhpffazj-ckwfwjuh 100-62.5-25 mcg (Trelegy Ellipta) 1 ea inhalation DAILY furosemide 40 mg PO QAM glimepiride 1 mg PO DAILY hydrocortisone 2.5% appl topical lancets (FreeStyle Lancets) test daily metformin 1,000 mg PO BID metoprolol succinate ER 50 mg PO DAILY omeprazole 40 mg PO DAILY polyethylene glycol 3350 (Miralax) 17 grams PO DAILY saw palmetto 450 mg PO BID solifenacin 10 mg PO DAILY triamcinolone acetonide 0.1% 1 appl topical BID-TID vitamins A,C,C-wtni-jgbuso 2,148 mcg-113 mg-45 mg-17.4mg (PreserVision AREDS) 1 tab PO BID warfarin 7.5 mg See Protocol PO DAILY MDD 1.5 tablets daily Nursing Note INR: 2.7 in therapeutic range of 2-3 Pt has URI. Called [facility] 03/11/25 to report he was on Prednisone taper 40mg/30mg/20mg/10mg, each dose x 2days. Also Zithromycin X 5days. He was still ill after course of meds and notified his pcp who prescribed a second round of Prednisone (same dose) and Zithro 250mg 3 X/week on Fri, Fri & Fri. Denies any signs and symptoms of bleeding or bruising or clotting. Bleeding, bruising, clotting discussed Nutritional guidance given to increase intake of greens Dose: 7.5mg daily until next INR check on Fri03/23/25 F/U INR: 1 week Patient verbalizes understanding of instructions given Anti-Coag Initial Assessment Social Hx Patient Tobacco Use Status: Former Tobacco user Tobacco use type: Cigarette alcohol intake: current Alcohol intake frequency: holidays/special occasions only Cardiovascular Hx: HTN, CHF and Cardiomyopathy Lung Disease HX: Asthma, COPD and DVT/PE Endocrine Hx: Diabetes Blood Disorder Hx: Other GI Hx: Other Cancer HX: No Coding Level of Care Code Est Patient Level 1 Diagnoses Current use of anticoagulant therapy Z79.01 Assessment & Plan Assessment & Plan (1) Current use of anticoagulant therapy: Code(s): Z79.01 - [facility] (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
== END 2025-03-17 08:28 | disposition home or self-care (01) ==
LOC: HO.ACS 08:04
PROVIDERS: PCP Internal Medicine; Visit Provider Internal Medicine Medical Oncology
DX: Z79.01 Long term (current) use of anticoagulants (principal)

== ENCOUNTER → 2025-03-17 08:04 | Outpatient (BNVA) | payer MEDICARE, OTHER, SELFPAY | PROVIDERS: PCP Internal Medicine; Visit Provider Internal Medicine Medical Oncology | DX: Z51.81 Encounter for therapeutic drug level monitoring (principal); Z79.01 Long term (current) use of anticoagulants | CPT/HCPCS: 85610; 99211 ==

== ENCOUNTER 2025-03-23 08:14 | Outpatient (AMB) | payer MEDICARE, OTHER, SELFPAY ==
--- NOTE | 2025-03-23 08:41 | MHC.OFFVISCO ---
Intake Intake Visit Reasons: Anticoagulation Allergies nicotine Allergy (Intermediate, Verified 03/23/25 08:34) Rash fish derived (FISH) Allergy (Unknown, Verified 03/23/25 08:34) ANGIOEDEMA tamsulosin (Flomax) Adverse Reaction (Intermediate, Verified 03/23/25 08:34) nightmares Medication List - Last Reconciled 03/23/25 by Olimpia Enriquez RN albuterol sulfate mg inhalation Q6H PRN albuterol sulfate 90 mcg/actuation inhalation azithromycin (Zithromax) 250 mg PO 3XW blood sugar diagnostic (FreeStyle Lite Strips) daily blood-glucose meter (FreeStyle [place] Lite kit) As directed cetirizine 10 mg PO DAILY PRN [custom heat molded multidensity innersoles wear 3 pairs of custom heat molded multidensity innersoles wear] diclofenac sodium 1% 2 grams topical QID docusate sodium (Stool Softener) 100 mg PO DAILY [extra depth orthopedic shoes with 3 pairs of custom heat molded multidensity innersoles wear] fluticasone propionate 50 mcg/actuation 1 spray intranasal DAILY pmcyxvqwpjs-tsvqgodeu-agfvnxsj 100-62.5-25 mcg (Trelegy Ellipta) 1 ea inhalation DAILY furosemide 40 mg PO QAM glimepiride 1 mg PO DAILY hydrocortisone 2.5% appl topical lancets (FreeStyle Lancets) test daily metformin 1,000 mg PO BID metoprolol succinate ER 50 mg PO DAILY omeprazole 40 mg PO DAILY polyethylene glycol 3350 (Miralax) 17 grams PO DAILY saw palmetto 450 mg PO BID solifenacin 10 mg PO DAILY triamcinolone acetonide 0.1% 1 appl topical BID-TID vitamins A,C,B-mtpf-rttwue 2,148 mcg-113 mg-45 mg-17.4mg (PreserVision AREDS) 1 tab PO BID warfarin 7.5 mg See Protocol PO DAILY MDD 1.5 tablets daily Nursing Note INR: 2.0- in therapeutic range of 2-3 Medications and supplements reviewed- pt finished prednisone for URI,took zpack last week, now on zithromax 250mg -w- x 3 months No changes in health, diet, medications, or supplements, Denies any signs and symptoms of bleeding or bruising or clotting. Bleeding, bruising, clotting discussed Nutritional guidance given Dose: 11.25mg x 2, 7.5mg x 5 F/U INR: 1 week Patient verbalizes understanding of instructions given Anti-Coag Initial Assessment Social Hx Patient Tobacco Use Status: Former Tobacco user Tobacco use type: Cigarette alcohol intake: current Alcohol intake frequency: holidays/special occasions only Cardiovascular Hx: HTN, CHF and Cardiomyopathy Lung Disease HX: Asthma, COPD and DVT/PE Endocrine Hx: Diabetes Blood Disorder Hx: Other GI Hx: Other Cancer HX: No Coding Level of Care Code Est Patient Level 1 Diagnoses Current use of anticoagulant therapy Z79.01 Results AMB INR Fingerstick AMB INR Fingerstick 2.0 Last Edit by Olimpia Enriquez RN on 03/23/25 08:44 interface delay Assessment & Plan Assessment & Plan (1) Current use of anticoagulant therapy: Code(s): Z79.01 - [facility] (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 Medications: Discontinued apixaban (Eliquis) Discontinued Reason: Patient Refused 5 mg PO BID 90 days 180 tabs 1RF
--- OUTSIDE RECORDS SUMMARY | 2025-03-23 08:42 | XMS_ITS | Clinical Summary ---
Author Organization [facility] it Address [address] [place] [address] Care Team Providers Care Normalizer Name Role Phone Unavailable Primary Care Provider [...]
[2025-03-23 10:01] LABS: Prothrombin Time Whole Bld POC 23.6 sec (11.1-13.5); ~PT, ~INR - Anti Coag Clinic 2.0 (0.9-1.1)
== END 2025-03-23 08:56 | disposition home or self-care (01) ==
LOC: HO.ACS 08:14
PROVIDERS: PCP Internal Medicine; Visit Provider Internal Medicine Medical Oncology
DX: Z79.01 Long term (current) use of anticoagulants (principal)

== ENCOUNTER → 2025-03-23 08:14 | Outpatient (BNVA) | payer MEDICARE, OTHER, SELFPAY | PROVIDERS: PCP Internal Medicine; Visit Provider Internal Medicine Medical Oncology | DX: Z51.81 Encounter for therapeutic drug level monitoring (principal); Z79.01 Long term (current) use of anticoagulants | CPT/HCPCS: 85610; 99211 ==

== ENCOUNTER 2025-03-31 08:11 | Outpatient (AMB) | payer MEDICARE, OTHER, SELFPAY ==
[2025-03-31 08:20] LABS: Prothrombin Time Whole Bld POC 25.6 sec (11.1-13.5); ~PT, ~INR - Anti Coag Clinic 2.1 (0.9-1.1)
--- NOTE | 2025-03-31 08:22 | MHC.OFFVISCO ---
Intake Intake Visit Reasons: Anticoagulation Allergies nicotine Allergy (Intermediate, Verified 03/31/25 08:15) Rash fish derived (FISH) Allergy (Unknown, Verified 03/31/25 08:15) ANGIOEDEMA tamsulosin (Flomax) Adverse Reaction (Intermediate, Verified 03/31/25 08:15) nightmares Medication List - Last Reconciled 03/31/25 by Marie Shaver, RN albuterol sulfate mg inhalation Q6H PRN albuterol sulfate 90 mcg/actuation inhalation azithromycin (Zithromax) 250 mg PO 3XW blood sugar diagnostic (FreeStyle Lite Strips) daily blood-glucose meter (FreeStyle [place] Lite kit) As directed cetirizine 10 mg PO DAILY PRN [custom heat molded multidensity innersoles wear 3 pairs of custom heat molded multidensity innersoles wear] diclofenac sodium 1% 2 grams topical QID docusate sodium (Stool Softener) 100 mg PO DAILY [extra depth orthopedic shoes with 3 pairs of custom heat molded multidensity innersoles wear] fluticasone propionate 50 mcg/actuation 1 spray intranasal DAILY yxaszfahlzw-vfqhgdldo-utacirfc 100-62.5-25 mcg (Trelegy Ellipta) 1 ea inhalation DAILY furosemide 40 mg PO QAM glimepiride 1 mg PO DAILY hydrocortisone 2.5% appl topical lancets (FreeStyle Lancets) test daily metformin 1,000 mg PO BID metoprolol succinate ER 50 mg PO DAILY omeprazole 40 mg PO DAILY polyethylene glycol 3350 (Miralax) 17 grams PO DAILY saw palmetto 450 mg PO BID solifenacin 10 mg PO DAILY triamcinolone acetonide 0.1% 1 appl topical BID-TID vitamins A,C,H-mrbe-tepkuy 2,148 mcg-113 mg-45 mg-17.4mg (PreserVision AREDS) 1 tab PO BID warfarin 7.5 mg See Protocol PO DAILY MDD 1.5 tablets daily Nursing Note INR: 2.1 in therapeutic range 2-3 Medications and supplements reviewed No changes in health, diet, medications, or supplements, Denies any signs and symptoms of bleeding or bruising or clotting. Bleeding, bruising, clotting discussed Nutritional guidance given Dose: 7.5mg X 5 days and 11.25mg X 2 days (Wed & Sat) F/U INR: 2 weeks Patient verbalizes understanding of instructions given Anti-Coag Initial Assessment Social Hx Patient Tobacco Use Status: Former Tobacco user Tobacco use type: Cigarette alcohol intake: current Alcohol intake frequency: holidays/special occasions only Cardiovascular Hx: HTN, CHF and Cardiomyopathy Lung Disease HX: Asthma, COPD and DVT/PE Endocrine Hx: Diabetes Blood Disorder Hx: Other GI Hx: Other Cancer HX: No Coding Level of Care Code Est Patient Level 1 Diagnoses Current use of anticoagulant therapy Z79.01 Assessment & Plan Assessment & Plan (1) Current use of anticoagulant therapy: Code(s): 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
--- OUTSIDE RECORDS SUMMARY | 2025-03-31 08:35 | XMS_ITS | Clinical Summary ---
Author Organization [facility] it Address [address] [place] [address] Care Team Providers Care Fringe Weaver Name Role Phone Unavailable Primary Care Provider [...]
--- OUTSIDE RECORDS SUMMARY | 2025-03-31 08:35 | XMS_ITS | Clinical Summary ---
Author Organization [facility] Address [address] [address] Phone Care Team Providers Care Life Skills Consultant Name Role Phone Jonathan Campoverde MD Primary Care Provider [phone] Allergies Active Allergy Reactions Criticality Noted Date [...] Description 01/25/2025 10:00 AM EDT Office Visit [address] [address] Yovani Covarrubias MD, PhD Reticular pseudodrusen (Primary [...] Both Eyes (01/25/2025 1:29 PM EDT) Pathologist [facility] ERG Implicit Time (OS) - Left Eye [...] ENHANCE SUPPLEMENT MEDICARE PART A & B [facility] MEDICARE ENHANCE SUPPLEMENT MEDICARE PART A & B Member Subscriber Plan / Payer (Ef fective 2017-Present) Name:Sonjapolo Otis Member ID:[id number] Relation to Subscriber:Self Name:Sonjapolo Otis Subscriber ID:[id number] Payer ID:[id number] Group ID:Not on file Type:Medicare Address: [employer] [address] [place] [id number] [facility] MEDICARE ENHANCE SUPPLEMENT MEDICARE PART A & B [facility] MEDICARE ENHANCE SUPPLEMENT MEDICARE PART A & [place] [address] [place] [address] MEDICARE ENHANCE SUPPLEMENT MEDICARE PART A & B [facility] MEDICARE ENHANCE SUPPLEMENT Care Teams Life Skills Consultant Relationship Specialty Start Date End Date Jonathan Campoverde MD [address] [place] [address] [place] [address] PCP - General Internal Medicine 06/03/24 Additional Source Comments The information contained in this document represents components of the legal health record. It is not the complete legal health record.[facility]
== END 2025-03-31 08:25 | disposition home or self-care (01) ==
LOC: HO.ACS 08:11
PROVIDERS: PCP Internal Medicine; Visit Provider Internal Medicine Medical Oncology
DX: Z79.01 Long term (current) use of anticoagulants (principal)

== ENCOUNTER → 2025-03-31 08:11 | Outpatient (BNVA) | payer MEDICARE, OTHER, SELFPAY | PROVIDERS: PCP Internal Medicine; Visit Provider Internal Medicine Medical Oncology | DX: Z51.81 Encounter for therapeutic drug level monitoring (principal); Z79.01 Long term (current) use of anticoagulants | CPT/HCPCS: 85610; 99211 ==

== ENCOUNTER 2025-04-14 08:06 | Outpatient (AMB) | payer MEDICARE, OTHER, SELFPAY ==
[2025-04-14 08:21] LABS: Prothrombin Time Whole Bld POC 37.1 sec (11.1-13.5); ~PT, ~INR - Anti Coag Clinic 3.1 (0.9-1.1)
--- NOTE | 2025-04-14 08:32 | MHC.OFFVISCO ---
Intake Intake Visit Reasons: Anticoagulation Allergies nicotine Allergy (Intermediate, Verified 04/14/25 08:15) Rash fish derived (FISH) Allergy (Unknown, Verified 04/14/25 08:15) ANGIOEDEMA tamsulosin (Flomax) Adverse Reaction (Intermediate, Verified 04/14/25 08:15) nightmares Medication List - Last Reconciled 04/14/25 by Marie Shaver, RN albuterol sulfate mg inhalation Q6H PRN albuterol sulfate 90 mcg/actuation inhalation azithromycin (Zithromax) 250 mg PO 3XW blood sugar diagnostic (FreeStyle Lite Strips) daily blood-glucose meter (FreeStyle [place] Lite kit) As directed cetirizine 10 mg PO DAILY PRN [custom heat molded multidensity innersoles wear 3 pairs of custom heat molded multidensity innersoles wear] diclofenac sodium 1% 2 grams topical QID docusate sodium (Stool Softener) 100 mg PO DAILY [extra depth orthopedic shoes with 3 pairs of custom heat molded multidensity innersoles wear] fluticasone propionate 50 mcg/actuation 1 spray intranasal DAILY wdoarydirtk-jszxivdzn-qgoeekjk 100-62.5-25 mcg (Trelegy Ellipta) 1 ea inhalation DAILY furosemide 40 mg PO QAM glimepiride 1 mg PO DAILY hydrocortisone 2.5% appl topical lancets (FreeStyle Lancets) test daily metformin 1,000 mg PO BID metoprolol succinate ER 50 mg PO DAILY omeprazole 40 mg PO DAILY polyethylene glycol 3350 (Miralax) 17 grams PO DAILY saw palmetto 450 mg PO BID solifenacin 10 mg PO DAILY triamcinolone acetonide 0.1% 1 appl topical BID-TID vitamins A,C,L-cgrg-wsaljd 2,148 mcg-113 mg-45 mg-17.4mg (PreserVision AREDS) 1 tab PO BID warfarin 7.5 mg See Protocol PO DAILY MDD 1.5 tablets daily Nursing Note INR: 3.1 out of therapeutic range of 2-3 INR went from 2.1-3.1 in 2 weeks time. Pt not sure why but will continue to monitor closely as he is on azithromycin 3X/week Medications and supplements reviewed Patient status: feels well Medications or supplements: no changes Diet: usual diet for pt Denies any signs and symptoms of bleeding or clotting or unusual bruising Bleeding, bruising, clotting discussed Nutritional guidance given: to have a serving of greens today Dose: 7.5mg X 5 days and 11.25mg X 2 days F/U INR Date: 2 weeks?? Patient verbalizing understanding of instructions given. Anti-Coag Initial Assessment Social Hx Patient Tobacco Use Status: Former Tobacco user Tobacco use type: Cigarette alcohol intake: current Alcohol intake frequency: holidays/special occasions only Cardiovascular Hx: HTN, CHF and Cardiomyopathy Lung Disease HX: Asthma, COPD and DVT/PE Endocrine Hx: Diabetes Blood Disorder Hx: Other GI Hx: Other Cancer HX: No Coding Level of Care Code Est Patient Level 1 Diagnoses Current use of anticoagulant therapy Z79.01 Assessment & Plan Assessment & Plan (1) Current use of anticoagulant therapy: Code(s): Z79.01 - prison (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
== END 2025-04-14 08:38 | disposition home or self-care (01) ==
LOC: HO.ACS 08:06
PROVIDERS: PCP Internal Medicine; Visit Provider Internal Medicine Medical Oncology
DX: Z79.01 Long term (current) use of anticoagulants (principal)

== ENCOUNTER → 2025-04-14 08:06 | Outpatient (BNVA) | payer MEDICARE, OTHER, SELFPAY | PROVIDERS: PCP Internal Medicine; Visit Provider Internal Medicine Medical Oncology | DX: Z51.81 Encounter for therapeutic drug level monitoring (principal); Z79.01 Long term (current) use of anticoagulants | CPT/HCPCS: 85610; 99211 ==

== ENCOUNTER 2025-04-28 08:06 | Outpatient (AMB) | payer MEDICARE, OTHER, SELFPAY ==
--- OUTSIDE RECORDS SUMMARY | 2025-04-28 08:19 | XMS_ITS | Clinical Summary ---
Author Organization [facility] it Address [address] [place] [address] Care Team Providers Care Wire Border Assembler Name Role Phone Unavailable Primary Care Provider [...] of 2 - PCV) 03/28/2018 03/28/2017, 02/07/2010 Depression Screening 08/04/2024 COVID-19 Vaccine ( season) 2025 11/29/2021, 07/09/2021, 11/09/2020, Additional history exists Influenza [...]
--- OUTSIDE RECORDS SUMMARY | 2025-04-28 08:19 | XMS_ITS | Clinical Summary ---
Author Organization [facility] Address [address] [place] [address] Phone Care Team Providers Care Company Controller Name Role Phone Jonathan Campoverde MD Primary Care Provider [phone] Allergies Active Allergy Reactions Criticality Noted Date Comments Other Bronchospasm 01/25/2025 fish Medications predniSONE (DELTASONE) 10 MG tablet Take 10 mg by mouth as directed. 5 Active albuterol 2.5 mg /3 mL (0.083 %) nebulizer solution Take 2.5 mg by nebulization 4 (four) times a day as needed. Active furosemide (LASIX) 40 MG tablet Take 40 mg by mouth every morning. 5 Active glimepiride (AMARYL) 1 MG tablet Take 1 tablet by mouth every morning. 5 Active metFORMIN (GLUCOPHAGE) 1000 MG tablet Take [...] puff into the lungs daily. 5 Active Social History Tobacco Use Types Packs/Day Years [...] ABDOMINAL AORTIC ANEURYSM (A AA) SCREENING 2016 INFLUENZA VACCINE (#1) 2025 COVID-19 VACCINE (1 - 2023-2 5 season) 2025 RSV VACCINE (1 - 1-dose 75+ series) [...] this topic Medical Devices Not on file Insurance MEDICARE PART A & B MEDICARE ENHANCE SUPPLEMENT MEDICARE PART A & B [facility] MEDICARE ENHANCE SUPPLEMENT MEDICARE PART A & B [facility] MEDICARE ENHANCE SUPPLEMENT MEDICARE PART A & B [facility] MEDICARE ENHANCE SUPPLEMENT MEDICARE PART A & B [facility] MEDICARE ENHANCE SUPPLEMENT MEDICARE PART A & B [facility] MEDICARE ENHANCE SUPPLEMENT Care Teams Company Controller Relationship Specialty Start Date End Date Jonathan Campoverde MD [address] [place] [address] [place] [address] PCP - General Internal Medicine 06/03/24 Additional Source Comments The information contained in this document represents components of the legal health record. It is not the complete legal health record.[facility]
[2025-04-28 08:25] LABS: Prothrombin Time Whole Bld POC 38.5 sec (11.1-13.5); ~PT, ~INR - Anti Coag Clinic 3.2 (0.9-1.1)
--- NOTE | 2025-04-28 08:25 | MHC.OFFVISCO ---
Intake Intake Visit Reasons: Anticoagulation Allergies nicotine Allergy (Intermediate, Verified 04/28/25 08:13) Rash fish derived (FISH) Allergy (Unknown, Verified 04/28/25 08:13) ANGIOEDEMA tamsulosin (Flomax) Adverse Reaction (Intermediate, Verified 04/28/25 08:13) nightmares Medication List - Last Reconciled 04/28/25 by Yakelin Jenkins RN albuterol sulfate mg inhalation Q6H PRN albuterol sulfate 90 mcg/actuation inhalation azithromycin (Zithromax) 250 mg PO 3XW blood sugar diagnostic (FreeStyle Lite Strips) daily blood-glucose meter (FreeStyle [place] Lite kit) As directed cetirizine 10 mg PO DAILY PRN [custom heat molded multidensity innersoles wear 3 pairs of custom heat molded multidensity innersoles wear] diclofenac sodium 1% 2 grams topical QID docusate sodium (Stool Softener) 100 mg PO DAILY [extra depth orthopedic shoes with 3 pairs of custom heat molded multidensity innersoles wear] fluticasone propionate 50 mcg/actuation 1 spray intranasal DAILY ovzxiuyqdyd-jlccthlmp-lbuenzai 100-62.5-25 mcg (Trelegy Ellipta) 1 ea inhalation DAILY furosemide 40 mg PO QAM glimepiride 1 mg PO DAILY hydrocortisone 2.5% appl topical lancets (FreeStyle Lancets) test daily metformin 1,000 mg PO BID metoprolol succinate ER 50 mg PO DAILY omeprazole 40 mg PO DAILY polyethylene glycol 3350 (Miralax) 17 grams PO DAILY saw palmetto 450 mg PO BID solifenacin 10 mg PO DAILY triamcinolone acetonide 0.1% 1 appl topical BID-TID vitamins A,C,I-clku-pefith 2,148 mcg-113 mg-45 mg-17.4mg (PreserVision AREDS) 1 tab PO BID warfarin 7.5 mg See Protocol PO DAILY MDD 1.5 tablets daily Nursing Note INR: 3.2 almost therapeutic range Medications and supplements reviewed- 03/2025 started azithrmycin for prophylatically to prevent lung infections x 3 days/ week- most likely raising his INR No changes in health, diet, medications, or supplements, Denies any signs and symptoms of bleeding or bruising or clotting. Bleeding, bruising, clotting discussed Nutritional guidance given - pt would like to increase greens to keep INR in range and to help his eyes Dose: keep same for now 11.25mg x 2 day/ 7.5mg x 5 days with greens x 4 / week F/U INR: 2 weeks to assess how pt diet keeping INR in range Patient verbalizes understanding of instructions given Anti-Coag Initial Assessment Social Hx Patient Tobacco Use Status: Former Tobacco user Tobacco use type: Cigarette alcohol intake: current Alcohol intake frequency: holidays/special occasions only Cardiovascular Hx: HTN, CHF and Cardiomyopathy Lung Disease HX: Asthma, COPD and DVT/PE Endocrine Hx: Diabetes Blood Disorder Hx: Other GI Hx: Other Cancer HX: No Coding Level of Care Code Est Patient Level 1 Diagnoses Current use of anticoagulant therapy Z79.01 Results AMB INR Fingerstick AMB INR Fingerstick 3.2 Last Edit by Yakelin Jenkins RN on 04/28/25 08:20 MANUAL ENTRY Assessment & Plan Assessment & Plan (1) Current use of anticoagulant therapy: Code(s): Z79.01 - buttermaker helper (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
== END 2025-04-28 08:32 | disposition home or self-care (01) ==
LOC: HO.ACS 08:06
PROVIDERS: PCP Internal Medicine; Visit Provider Internal Medicine Medical Oncology
DX: Z79.01 Long term (current) use of anticoagulants (principal)

== ENCOUNTER → 2025-04-28 08:06 | Outpatient (BNVA) | payer MEDICARE, OTHER, SELFPAY | PROVIDERS: PCP Internal Medicine; Visit Provider Internal Medicine Medical Oncology | DX: Z51.81 Encounter for therapeutic drug level monitoring (principal); Z79.01 Long term (current) use of anticoagulants | CPT/HCPCS: 85610; 99211 ==

== ENCOUNTER 2025-05-12 08:21 | Outpatient (AMB) | payer MEDICARE, OTHER, SELFPAY ==
[2025-05-12 08:49] LABS: Prothrombin Time Whole Bld POC 22.7 sec (11.1-13.5); ~PT, ~INR - Anti Coag Clinic 1.9 (0.9-1.1)
--- NOTE | 2025-05-12 08:50 | MHC.OFFVISCO ---
Intake Intake Visit Reasons: Anticoagulation Allergies nicotine Allergy (Intermediate, Verified 05/12/25 08:44) Rash fish derived (FISH) Allergy (Unknown, Verified 05/12/25 08:44) ANGIOEDEMA tamsulosin (Flomax) Adverse Reaction (Intermediate, Verified 05/12/25 08:44) nightmares Medication List - Last Reconciled 05/12/25 by Marie Shaver, RN albuterol sulfate mg inhalation Q6H PRN albuterol sulfate 90 mcg/actuation inhalation azithromycin (Zithromax) 250 mg PO 3XW blood sugar diagnostic (FreeStyle Lite Strips) daily blood-glucose meter (FreeStyle [place] Lite kit) As directed cetirizine 10 mg PO DAILY PRN [custom heat molded multidensity innersoles wear 3 pairs of custom heat molded multidensity innersoles wear] diclofenac sodium 1% 2 grams topical QID docusate sodium (Stool Softener) 100 mg PO DAILY [extra depth orthopedic shoes with 3 pairs of custom heat molded multidensity innersoles wear] fluticasone propionate 50 mcg/actuation 1 spray intranasal DAILY osmlflrgepv-zomdkgppq-kirarjjg 100-62.5-25 mcg (Trelegy Ellipta) 1 ea inhalation DAILY furosemide 40 mg PO QAM glimepiride 1 mg PO DAILY hydrocortisone 2.5% appl topical lancets (FreeStyle Lancets) test daily metformin 1,000 mg PO BID metoprolol succinate ER 50 mg PO DAILY omeprazole 40 mg PO DAILY polyethylene glycol 3350 (Miralax) 17 grams PO DAILY saw palmetto 450 mg PO BID solifenacin 10 mg PO DAILY triamcinolone acetonide 0.1% 1 appl topical BID-TID vitamins A,C,J-okti-zgkpse 2,148 mcg-113 mg-45 mg-17.4mg (PreserVision AREDS) 1 tab PO BID warfarin 7.5 mg See Protocol PO DAILY MDD 1.5 tablets daily Nursing Note INR: 1.9?out of therapeutic range of 2-3 Medications and supplements reviewed Patient status: feels well Medications or supplements: pt is taking azithromycin 250mg po 3X/week for recurrent COPD/URI flare up's Diet: has increased his greens intake due to antibiotic Denies any signs and symptoms of bleeding or clotting or unusual bruising Bleeding, bruising, clotting discussed Nutritional guidance given: to hold greens X 2 days and to have a serving of foods that raise the INR today Dose: 7.5mg X 5 days and 11.25mg X 2 days (Wed & Sat) F/U INR Date: 2 weeks?? Patient verbalizing understanding of instructions given. Anti-Coag Initial Assessment Social Hx Patient Tobacco Use Status: Former Tobacco user Tobacco use type: Cigarette alcohol intake: current Alcohol intake frequency: holidays/special occasions only Cardiovascular Hx: HTN, CHF and Cardiomyopathy Lung Disease HX: Asthma, COPD and DVT/PE Endocrine Hx: Diabetes Blood Disorder Hx: Other GI Hx: Other Cancer HX: No Coding Level of Care Code Est Patient Level 1 Diagnoses Current use of anticoagulant therapy Z79.01 Assessment & Plan Assessment & Plan (1) Current use of anticoagulant therapy: Code(s): Z79.01 - intermediate (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
== END 2025-05-12 08:56 | disposition home or self-care (01) ==
LOC: HO.ACS 08:21
PROVIDERS: PCP Internal Medicine; Visit Provider Internal Medicine Medical Oncology
DX: Z79.01 Long term (current) use of anticoagulants (principal)

== ENCOUNTER → 2025-05-12 08:21 | Outpatient (BNVA) | payer MEDICARE, OTHER, SELFPAY | PROVIDERS: PCP Internal Medicine; Visit Provider Internal Medicine Medical Oncology | DX: Z51.81 Encounter for therapeutic drug level monitoring (principal); Z79.01 Long term (current) use of anticoagulants | CPT/HCPCS: 85610; 99211 ==

== ENCOUNTER 2025-05-26 08:14 | Outpatient (AMB) | payer MEDICARE, OTHER, SELFPAY ==
[2025-05-26 08:26] LABS: Prothrombin Time Whole Bld POC 25.8 sec (11.1-13.5); ~PT, ~INR - Anti Coag Clinic 2.2 (0.9-1.1)
--- NOTE | 2025-05-26 08:30 | MHC.OFFVISCO ---
Intake Intake Visit Reasons: Anticoagulation Allergies nicotine Allergy (Intermediate, Verified 05/26/25 08:20) Rash fish derived (FISH) Allergy (Unknown, Verified 05/26/25 08:20) ANGIOEDEMA tamsulosin (Flomax) Adverse Reaction (Intermediate, Verified 05/26/25 08:20) nightmares Medication List - Last Reconciled 05/26/25 by Marie Shaver, RN albuterol sulfate mg inhalation Q6H PRN albuterol sulfate 90 mcg/actuation inhalation azithromycin (Zithromax) 250 mg PO 3XW blood sugar diagnostic (FreeStyle Lite Strips) daily blood-glucose meter (FreeStyle [place] Lite kit) As directed cetirizine 10 mg PO DAILY PRN [custom heat molded multidensity innersoles wear 3 pairs of custom heat molded multidensity innersoles wear] diclofenac sodium 1% 2 grams topical QID docusate sodium (Stool Softener) 100 mg PO DAILY [extra depth orthopedic shoes with 3 pairs of custom heat molded multidensity innersoles wear] fluticasone propionate 50 mcg/actuation 1 spray intranasal DAILY ixjhboefhma-kbwocavtd-wbgcbjia 100-62.5-25 mcg (Trelegy Ellipta) 1 ea inhalation DAILY furosemide 40 mg PO QAM glimepiride 1 mg PO DAILY hydrocortisone 2.5% appl topical lancets (FreeStyle Lancets) test daily metformin 1,000 mg PO BID metoprolol succinate ER 50 mg PO DAILY omeprazole 40 mg PO DAILY polyethylene glycol 3350 (Miralax) 17 grams PO DAILY saw palmetto 450 mg PO BID solifenacin 10 mg PO DAILY triamcinolone acetonide 0.1% 1 appl topical BID-TID vitamins A,C,H-gufl-lyfbvp 2,148 mcg-113 mg-45 mg-17.4mg (PreserVision AREDS) 1 tab PO BID warfarin 7.5 mg See Protocol PO DAILY MDD 1.5 tablets daily Nursing Note INR: 2.2 in therapeutic range of 2-3 Medications and supplements reviewed No changes in health, diet, medications, or supplements, Denies any signs and symptoms of bleeding or bruising or clotting. Bleeding, bruising, clotting discussed Nutritional guidance given Dose: 7.5 X 5 days and 11.25mg X 2 days (Wed & Sat) F/U INR: 2 weeks Patient verbalizes understanding of instructions given Anti-Coag Initial Assessment Social Hx Patient Tobacco Use Status: Former Tobacco user Tobacco use type: Cigarette alcohol intake: current Alcohol intake frequency: holidays/special occasions only Cardiovascular Hx: HTN, CHF and Cardiomyopathy Lung Disease HX: Asthma, COPD and DVT/PE Endocrine Hx: Diabetes Blood Disorder Hx: Other GI Hx: Other Cancer HX: No Coding Level of Care Code Est Patient Level 1 Diagnoses Current use of anticoagulant therapy Z79.01 Results AMB INR Fingerstick AMB INR Fingerstick 2.2 Last Edit by Marie Shaver RN on 05/26/25 08:28 interface delay Assessment & Plan Assessment & Plan (1) Current use of anticoagulant therapy: Code(s): Z79.01 - group home (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
--- OUTSIDE RECORDS SUMMARY | 2025-05-26 08:34 | XMS_ITS | Clinical Summary ---
Author Organization [facility] it Address [address] [place] [address] Care Team Providers Care Cow Tester Name Role Phone Unavailable Primary Care Provider [...]
--- OUTSIDE RECORDS SUMMARY | 2025-05-26 08:34 | XMS_ITS | Clinical Summary ---
Author Organization [facility] Address [address] [place] [address] Phone Care Team Providers Care Furniture Repair Technician Name Role Phone Jonathan Campoverde MD Primary Care Provider [phone] Allergies Active Allergy Reactions Criticality Noted Date [...] VACCINE (#1) 2025 COVID-19 VACCINE (1 - 2024-2 6 season) 2025 RSV VACCINE (1 - 1-dose [...] ENHANCE SUPPLEMENT MEDICARE PART A & B [facility] MEDICARE ENHANCE SUPPLEMENT MEDICARE PART A & B [facility] MEDICARE ENHANCE SUPPLEMENT MEDICARE PART A & B [facility] MEDICARE ENHANCE SUPPLEMENT MEDICARE PART A & B [facility] MEDICARE ENHANCE SUPPLEMENT MEDICARE PART A & B [facility] MEDICARE ENHANCE SUPPLEMENT Care Teams Furniture Repair Technician Relationship Specialty Start Date End Date Jonathan Campoverde MD [address] [place] [address] [place] [address] PCP - General Internal Medicine 06/03/24 Additional Source Comments The information contained in this document represents components of the legal health record. It is not the complete legal health record.[facility]
== END 2025-05-26 08:32 | disposition home or self-care (01) ==
LOC: HO.ACS 08:14
PROVIDERS: PCP Internal Medicine; Visit Provider Internal Medicine Medical Oncology
DX: Z79.01 Long term (current) use of anticoagulants (principal)

== ENCOUNTER → 2025-05-26 08:14 | Outpatient (BNVA) | payer MEDICARE, OTHER, SELFPAY | PROVIDERS: PCP Internal Medicine; Visit Provider Internal Medicine Medical Oncology | DX: Z86.711 Personal history of pulmonary embolism (principal); Z51.81 Encounter for therapeutic drug level monitoring; Z79.01 Long term (current) use of anticoagulants | CPT/HCPCS: 85610; 99211 ==

== ENCOUNTER 2025-06-09 08:11 | Outpatient (AMB) | payer MEDICARE, OTHER, SELFPAY ==
[2025-06-09 08:27] LABS: Prothrombin Time Whole Bld POC 19.6 sec (11.1-13.5); ~PT, ~INR - Anti Coag Clinic 1.6 (0.9-1.1)
--- NOTE | 2025-06-09 08:32 | MHC.OFFVISCO ---
Intake Intake Visit Reasons: Anticoagulation Allergies nicotine Allergy (Intermediate, Verified 06/09/25 08:22) Rash fish derived (FISH) Allergy (Unknown, Verified 06/09/25 08:22) ANGIOEDEMA tamsulosin (Flomax) Adverse Reaction (Intermediate, Verified 06/09/25 08:22) nightmares Medication List - Last Reconciled 06/09/25 by Marie Shaver, RN albuterol sulfate mg inhalation Q6H PRN albuterol sulfate 90 mcg/actuation inhalation azithromycin (Zithromax) 250 mg PO 3XW blood sugar diagnostic (FreeStyle Lite Strips) daily blood-glucose meter (FreeStyle [place] Lite kit) As directed cetirizine 10 mg PO DAILY PRN [custom heat molded multidensity innersoles wear 3 pairs of custom heat molded multidensity innersoles wear] diclofenac sodium 1% 2 grams topical QID docusate sodium (Stool Softener) 100 mg PO DAILY [extra depth orthopedic shoes with 3 pairs of custom heat molded multidensity innersoles wear] fluticasone propionate 50 mcg/actuation 1 spray intranasal DAILY iwbwdiclhpf-hyvmcwure-fikxlmxx 100-62.5-25 mcg (Trelegy Ellipta) 1 ea inhalation DAILY furosemide 40 mg PO QAM glimepiride 1 mg PO DAILY hydrocortisone 2.5% appl topical lancets (FreeStyle Lancets) test daily metformin 1,000 mg PO BID metoprolol succinate ER 50 mg PO DAILY omeprazole 40 mg PO DAILY polyethylene glycol 3350 (Miralax) 17 grams PO DAILY saw palmetto 450 mg PO BID solifenacin 10 mg PO DAILY triamcinolone acetonide 0.1% 1 appl topical BID-TID vitamins A,C,C-irgm-ehfqar 2,148 mcg-113 mg-45 mg-17.4mg (PreserVision AREDS) 1 tab PO BID warfarin 7.5 mg See Protocol PO DAILY MDD 1.5 tablets daily Nursing Note INR: 1.6 out of therapeutic range of 2-3 Has a wound on upper left hand which is open, non draining, red and swollen which may be the reason for the low INR. Vaseline dsg applied with tegaderm cover. Pt instructed to keep covered during day and to open to air in evening. Also to contact his MD if it becomes more red and swollen. Medications and supplements reviewed Patient status: no other complaints than above Medications or supplements: no change Diet: no changes Denies any signs and symptoms of bleeding or clotting or unusual bruising Bleeding, bruising, clotting discussed Nutritional guidance given: to avoid greens X 2 days and to have a serving of foods that raise the INR. Food list discussed. Dose: increase today's dose to 11.25mg (7.5mg) then 7.5mg X 5 days and 11.25mg X 2 days (Wed & Fri) F/U INR Date: 2 weeks?? Patient verbalizing understanding of instructions given. Anti-Coag Initial Assessment Social Hx Patient Tobacco Use Status: Former Tobacco user Tobacco use type: Cigarette alcohol intake: current Alcohol intake frequency: holidays/special occasions only Cardiovascular Hx: HTN, CHF and Cardiomyopathy Lung Disease HX: Asthma, COPD and DVT/PE Endocrine Hx: Diabetes Blood Disorder Hx: Other GI Hx: Other Cancer HX: No Coding Level of Care Code Est Patient Level 1 Diagnoses Current use of anticoagulant therapy Z79.01 Assessment & Plan Assessment & Plan (1) Current use of anticoagulant therapy: Code(s): Z79.01 - deliverer outside (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
== END 2025-06-09 08:42 | disposition home or self-care (01) ==
LOC: HO.ACS 08:11
PROVIDERS: PCP Internal Medicine; Visit Provider Internal Medicine Medical Oncology
DX: Z79.01 Long term (current) use of anticoagulants (principal)

== ENCOUNTER → 2025-06-09 08:11 | Outpatient (BNVA) | payer MEDICARE, OTHER, SELFPAY | PROVIDERS: PCP Internal Medicine; Visit Provider Internal Medicine Medical Oncology | DX: I26.99 Other pulmonary embolism without acute cor pulmonale (principal); Z51.81 Encounter for therapeutic drug level monitoring; Z79.01 Long term (current) use of anticoagulants | CPT/HCPCS: 85610; 99211 ==

== ENCOUNTER 2025-06-16 07:05 | Outpatient (REF) | payer MEDICARE, OTHER, SELFPAY ==
--- OUTSIDE RECORDS SUMMARY | 2025-06-16 07:08 | XMS_ITS | Encounter Summary ---
Author Organization [facility] Address [address] [place] [address] Care Team Providers Care Pmo Manager Name Role Phone Physician, Pcp Unknown Primary Care Provider Kaia vailable Encounter Details Date Type Department Care Team (Late st Contact Info) Description 06/10/2025 Lab Requisition [facility] - Main Lab [address] [facility] [place] [address] Jimmy Allen MD [address] [facility] [address] [place] [id number] Gross hematuria Social History Tobacco Use Types Packs/Day Years Used Date Smoking Tobacco: Never Assessed Sex and Gender Information Value Date Recorded Sex Assigned at Not on file Legal Sex Male 6:32 AM EST Gender Identity Not on file Sexual Orientation Not on file documented as of this encounter Plan of Treatment Pending Results Name Type Priority Associated Diagnoses Date /Time Non-gynecologic cytology Pathology and Cytology Routine Gross hematuria 06/02/2025 12:00 AM EDT documented as of this encounter Visit Diagnoses Diagnosis Gross hematuria documented in this encounter Care Teams Pmo Manager Relationship Specialty Start Date End Date Physician, Pcp Unknown PCP - General 06/10/25 documented as of this encounter
--- OUTSIDE RECORDS SUMMARY | 2025-06-16 07:08 | XMS_ITS | Clinical Summary ---
Author Organization [facility] Address [address] [place] [address] Phone Care Team Providers Care Soliciting Freight Agent Name Role Phone Physician, Pcp Unknown Primary Care Provider Kaia vailable Encounters Date Type Department Care Team Description 06/10/[address] [facility] - Main Lab [address] [facility] [place] [address] Jimmy Allen MD Gross hematuria from Last 3 Months Social History Tobacco Use Types Packs/Day Years Used Date Smoking Tobacco: Never Assessed Sex and Gender Information Value Date Recorded Sex Assigned at Not on file Legal Sex Male 6:32 AM EST Gender Identity Not on file Sexual Orientation Not on file Plan of Treatment Health Maintenance Due Date Last Done Comments Colorectal Cancer Screening: Colonoscopy 1951 Diabetes: Annual GFR (Glomerular Filtration Rate) 1951 Diabetes: Annual Foot Exam 1961 Diabetes: Annual Retina Eye Exam 1961 DTaP,Tdap,and Td Vaccines (1 - Tdap) 1970 Zoster Vaccines (1 of 2) 2001 Pneumococcal Vaccine: 50+ Years (2 of 2 - PCV) 03/28/2018 03/28/2017, 02/07/2010 Depression Screening 08/04/2024 COVID-19 Vaccine ( season) 2025 11/29/2021, 07/09/2021, 11/09/2020, Additional history exists Influenza Vaccine (#1) 2025 , 05/19/2019, 05/11/2018, Additional history exists Abdominal Aortic Aneurysm (AAA) Screen 06/10/2025 Cholesterol Screening (Lipid Panel) 06/10/2025 Diabetes: Annual Urine Albumin-Creatinine Ratio (uACR) 06/10/2025 Diabetes: Blood Sugar Control Test (HGBA1C) 06/10/2025 Falls Risk Assessment 06/10/2025 Hepatitis C Screening 06/10/2025 Hypertension/CHF/CAD Annual BMP Blood Test 06/10/2025 Medicare Annual Wellness Visit 06/10/2025 Social Influencers of Health Screening 06/10/2025 RSV Immunization Adult Patients Completed 10/27/2023 HIB [...] on patient's age to complete this topic Insurance MEDICARE Care Teams Soliciting Freight Agent Relationship Specialty Start Date End Date Physician, Pcp Unknown PCP - General 06/10/25
--- OUTSIDE RECORDS SUMMARY | 2025-06-16 07:08 | XMS_ITS | Clinical Summary ---
Author Organization [facility] Address [address] [place] [address] Phone Care Team Providers Care Monitoring And Evaluation Advisor Name Role Phone Jonathan Campoverde MD Primary Care Provider [phone] Allergies Active Allergy Reactions Criticality Noted Date [...] patient's age to complete this topic IPV VACCINES Aged Out No longer eligi ble based on patient's age to complete this topic MENINGOCOCCAL VACCINES (ACWY) Aged Out No longer eligible based on patient's age to complete this topic MENINGOCOCCAL VACCINES (B) Aged Out N o longer eligible based on patient's age to complete this topic Medical Devices Not on file Insurance MEDICARE PART A & B Member Subscriber Plan / Payer (Ef fective 2017-Present) Name:Otis Mullen Member ID:[id number] Relation to Subscriber:Self Name:Otis Mullen Subscriber ID:[id number] Payer ID:[id number] Group ID:Not on file Type:Medicare Address: [employer] [address] [place] [address] [place] [address] MEDICARE ENHANCE SUPPLEMENT MEDICARE PART A & B [facility] MEDICARE ENHANCE SUPPLEMENT MEDICARE PART A & B [facility] MEDICARE ENHANCE SUPPLEMENT MEDICARE PART A & B [facility] MEDICARE ENHANCE SUPPLEMENT MEDICARE PART A & B MEDICARE ENHANCE SUPPLEMENT MEDICARE PART A & B [facility] MEDICARE ENHANCE SUPPLEMENT Care Teams Monitoring And Evaluation Advisor Relationship Specialty Start Date End Date Jonathan Campoverde MD [address] [place] [address] [place] [address] PCP - General Internal Medicine 06/03/24 Additional Source Comments The information contained in this document represents components of the legal health record. It is not the complete legal health record.[facility]
[2025-06-16 07:19] LABS: MANUAL DIFF FLAG NO
[2025-06-16 07:51] LABS: Hematocrit 46.8 % (42.0-52.0); Hemoglobin 15.2 g/dl (14.0-18.0); Imm Gran Abs Auto 0.02 X10*3/uL (0.00-0.03); Imm Gran Pct Auto 0.2 % (0.0-0.4); Lymphocytes Absolute Auto 2.8 X10*3/uL (1.2-4.9); Mean Corpuscular HGB Conc 32.5 g/dl (31.0-36.0); Mean Corpuscular Hemoglobin 28.0 pg (27.0-33.0); Mean Corpuscular Volume 86.2 fL (80.0-98.0); NRBC Abs Auto 0.000 X10*3/uL (0.0-0.012); NRBC Pct Auto 0.0 /100WBC (0.0-0.2); Platelet Count 358 X10*3/uL (160-400); Red Blood Count 5.43 X10*6/uL (4.60-5.80); White Blood Count 9.5 X10*3/uL (4.8-10.8)
[2025-06-16 07:53] LABS: Appearance Urine Clear; Glucose Urine UA Negative (Negative); PH 5.5 (5.0-9.0); Specific Gravity - Urine 1.015 (1.005-1.025); UMIC TRIGGER UACC YES
[2025-06-16 07:53] LABS: Hemoglobin A1C 122.7117 umol/L
[2025-06-16 08:03] LABS: UACC Culture Trigger YES
[2025-06-16 08:09] LABS: Alanine Aminotransferase 26 U/L (0-40); Albumin Level 4.1 g/dL (3.5-5.0); Alkaline Phosphatase 104 U/L (39-117); Anion Gap 11 (12-20); Aspartate Amino Transferase 25 U/L (5-37); Blood Urea Nitrogen 30 mg/dL (9-16); Calcium 9.4 mg/dL (8.4-10.2); Carbon Dioxide 28 mmol/L (22-29); Chloride 111 mmol/L (96-108); Cholesterol 191 mg/dL (<200); Estimated Glomerular Filt Rate > 60; HDL Cholesterol 46 mg/dL (>40); Potassium 3.9 mmol/L (3.3-5.1); Sodium 146 mmol/L (135-145); Total Protein 7.3 g/dL (6.5-8.0); Triglycerides 75 mg/dL (<150)
[2025-06-16 08:26] LABS: Microalbum/Creatinine Ratio Ur 44.9 ug/mg cr (<30)
[2025-06-16 08:38] LABS: Folate 12.2 ng/mL (> or = 4.0); Vitamin B12 649 pg/mL (200-900)
== END 2025-06-16 07:06 | disposition home or self-care (01) ==
LOC: HO.LAB 07:05
PROVIDERS: PCP Internal Medicine; Visit Provider Internal Medicine
DX: E11.9 Type 2 diabetes mellitus without complications (principal); E53.8 Deficiency of other specified B group vitamins; D64.9 Anemia, unspecified; E78.00 Pure hypercholesterolemia, unspecified; E55.9 Vitamin D deficiency, unspecified
CPT/HCPCS: 36415; 80053; 80061; 81001; 81003; 82043; 82306; 82570; 82607; 82746; 83036; 84443; 85025; 87086

== ENCOUNTER 2025-06-22 14:45 | Outpatient (AMB) | payer MEDICARE, OTHER, SELFPAY ==
--- NOTE | 2025-06-22 14:50 | A.OFFPC_ITS ---
Vital Signs 06/22/25 14:51 Height 5 ft 10 in Weight 244 lb BMI 35.0 BP 110/80 Blood Pressure Location Lt brachial Position Sitting Pulse 87 Pulse Source Pulse Oximeter Pulse Oximetry (%) 90 L Oxygen Delivery Method Room Air Intake Visit Reasons: dm,copd,pulmonary embolism Deicer Kit Assembler Required: No Accompanied by: Self / Same As Patient Allergies seafood Allergy (Severe, Verified 06/27/25 04:06) Angioedema, SOB nicotine Allergy (Intermediate, Verified 06/27/25 04:06) Rash fish derived (FISH) Allergy (Unknown, Verified 06/27/25 04:06) ANGIOEDEMA tamsulosin (Flomax) Adverse Reaction (Intermediate, Verified 06/27/25 04:06) nightmares Medication List - Last Reconciled 06/22/25 by Tito Pierce MD albuterol sulfate mg inhalation Q6H PRN albuterol sulfate 90 mcg/actuation inhalation azithromycin (Zithromax) 250 mg PO 3XW blood sugar diagnostic (FreeStyle Lite Strips) daily blood-glucose meter (FreeStyle Petal Lite kit) As directed cetirizine 10 mg PO DAILY PRN [custom heat molded multidensity innersoles wear 3 pairs of custom heat molded multidensity innersoles wear] diclofenac sodium 1% 2 grams topical QID docusate sodium (Stool Softener) 100 mg PO DAILY [extra depth orthopedic shoes with 3 pairs of custom heat molded multidensity innersoles wear] fluticasone propionate 50 mcg/actuation 1 spray intranasal DAILY wgvxloxycpz-rvketijwz-mslcdgps 100-62.5-25 mcg (Trelegy Ellipta) 1 ea inhalation DAILY furosemide 40 mg PO QAM glimepiride 1 mg PO DAILY hydrocortisone 2.5% appl topical lancets (FreeStyle Lancets) test daily metformin 1,000 mg PO BID metoprolol succinate ER 50 mg PO DAILY omeprazole 40 mg PO DAILY polyethylene glycol 3350 (Miralax) 17 grams PO DAILY saw palmetto 450 mg PO BID solifenacin 10 mg PO DAILY triamcinolone acetonide 0.1% 1 appl topical BID-TID vitamins A,C,F-ousc-jjcsga 2,148 mcg-113 mg-45 mg-17.4mg (PreserVision AREDS) 1 tab PO BID warfarin 7.5 mg See Protocol PO DAILY MDD 1.5 tablets daily Tobacco use date assessed: 06/22/25 Fall risk assessment: No Falls in past year Last assessed Fall Risk: 06/22/25 Dental Screening Dental Screen Date: 06/22/25 Did you have a dental visit in the last 12 months?: No Did you have a dental problem in the last 6 months where you did not have access to dental care?: No Was dental information given to patient?: No HPI dm,copd,pulmonary embolism HPI Details Patient comes in today for his follow-up visit States that he feels okay He denies any headaches or dizziness Denies any chest pains, no shortness of breath No nausea/vomiting, no abdominal pain No change in bowel habits noted He had his follow-up labs done last week - to discuss his results FORMERLY [facility], [facility] Medical History (Updated 06/27/25 @ 04:20 by Tito Pierce MD) Obesity (BMI 30-39.9) Overactive bladder History of prostate cancer Allergic rhinitis Asthma-COPD overlap syndrome Coronary artery disease Diabetes mellitus Essential hypertension Severe obesity (BMI 35.0-35.9 with comorbidity) Screening for diabetes mellitus Obesity Hypertension Cardiomyopathy COVID-19 Asthma Surgical History History of surgery History of colonoscopy History of transurethral resection of prostate History of cystoscopy Status post orchiopexy History of eye surgery History of tonsillectomy Family History Father Heart disease Mother Colon cancer Brother No problems noted. Brother No problems noted. Sister No problems noted. Social History Housing: House Alcohol intake: current Alcohol intake frequency: holidays/special occasions only Patient Tobacco Use Status: Former Tobacco user Tobacco use type: Cigarette Years Smoked: 50 e-Cigarette/Vaping Use: Never Used Second Hand Smoke Exposure: Yes service: No Current occupational status: employed and retired Current occupation: retired Cognitive needs: No Hearing needs: No Vision needs: Yes Questionnaire PHQ-9 Over the last 2 weeks, how often have you been bothered by any of the following problems? 1. Little interest or pleasure in doing things: not at all 2. Feeling down, depressed, or hopeless: not at all 3. Trouble falling or staying asleep, or sleeping too much: not at all 4. Feeling tired or having little energy: several days 5. Poor appetite or overeating: not at all 6. Feeling bad about yourself - or that you are a failure or have let yourself or your family down: not at all 7. Trouble concentrating on things, such as reading the newspaper or watching television: not at all 8. Moving or speaking so slowly that other people could have noticed. Or the opposite - being so fidgety or restless that you have been moving around a lot more than usual: not at all 9. Thoughts that you would be better off or of hurting yourself in some way: not at all Total score: 1 Depression Screening Interpretation: Negative Depression Screening Done: Yes 37025 - PHQ-9 Billing: Yes Source: Developed by Drs. Arnoldo Sarah, Julita Uriostegui, Vega Miller and colleagues, with an educational marisa from [employer]. Thrive Questionnaire Date Thrive assessed: 06/22/25 I am a: Patient What is your living situation today?: I have a steady place to live Within the past 12 months, did the food you bought not last and you didn't have the money to get more?: Never true Within the past 12 months, did you worry whether your food would run out before you got money to buy more?: Never true Do you have trouble paying for medicines?: No Do you have trouble getting transportation to medical appointments?: No Do you have trouble paying your heating and electricity bill?: No Do you have trouble taking care of your child, family member or friend?: No Do you have trouble with day-to-day activities such as bathing, preparing meals, shopping, managing finances, etc.?: No Are you currently unemployed and looking for a job?: No Are you interested in more education?: No Please select the resources that you would like help with: None Currently or been in a relationship where the following occur: No concerns reported THRIVE Score: 0 AUDIT C Alcohol Use Questionnaire (AUDIT-C) 1. How often do you have a drink containing alcohol?: Monthly or less 2. How many drinks containing alcohol do you have on a typical day when you are drinking?: 1 or 2 3. How often do you have six or more drinks on one occasion?: Never Total Score: 1 Score Reviewed/Action Taken: Yes CAYDEN-7 AMB Questionnaire CAYDEN-7 Date CAYDEN - 7 assessed: 06/22/25 Feeling nervous, anxious, or on edge: 0 = Not at all Not being able to stop or control worryin = Not at all Worrying too much about different things: 0 = Not at all Trouble relaxin = Not at all Being so restless that it is hard to sit still: 0 = Not at all Becoming easily annoyed or irritable: 0 = Not at all Feeling afraid as if something awful might happen: 0 = Not at all Total CAYDEN-7 score (0-4 normal; 5-9 mild; 10-14 moderate; 15-21 severe): 0 Source: Developed by Drs. Arnoldo Sarah, Julita Uriostegui, Vega Miller and colleagues, with an educational marisa from [employer]. Review of Systems Const Denies chills, Denies fatigue, Denies fever(s) and Denies headache(s) ENT Denies dysphagia, Denies dizziness, Denies otalgia, Denies headache(s), Denies neck pain, Denies odynophagia and Denies sore throat Card Denies chest pain, Denies palpitations and Denies dyspnea Resp Denies chest congestion, Denies cough and Denies dyspnea GI Denies abdominal pain, Denies constipation, Denies dysphagia, Denies heartburn, Denies diarrhea, Denies nausea, Denies odynophagia and Denies vomiting Denies difficulty urinating, Denies dysuria, Denies nocturia and Denies urinary frequency Musc Denies back pain and Denies neck pain Skin/Breast Denies rash Neuro Denies dizziness and Denies headache(s) Endo Denies fatigue and Denies palpitations Physical exam (Primary Care) Vital Signs: Last Vital Signs Pulse 87 06/22/25 14:51 BP 110/80 06/22/25 14:51 Pulse Ox 90 L 06/22/25 14:51 Oxygen Delivery Method Room Air 06/22/25 14:51 BMI result Body Mass Index 35.0 Tobacco/Smoking Status: Tobacco use Status Tobacco use date assessed 06/22/25 06/22/25 14:53 Patient Tobacco Use Status Former Tobacco user 06/22/25 14:53 Tobacco use type Cigarette 06/22/25 14:53 e-Cigarette/Vaping Use Never Used 06/22/25 14:53 PHQ-9: PHQ-9 Score PHQ-9: Total score 1 06/22/25 15:32 Depression Screening Interpretation: Negative Thrive Assessment: Date of Thrive Assessment Date Thrive assessed 06/22/25 06/22/25 14:53 Currently or been in a relationship where the following occur: No concerns reported Const General: no acute distress and alert HENMT Ears: TM's normal bilaterally and EAC's normal Throat: Yes posterior oropharynx normal and Yes tonsils normal (no TP congestion) Neck Neck: Yes supple and No lymphadenopathy Thyroid: Thyroid normal Resp Auscultation: clear to auscultation bilaterally, no rales and no wheezes Cardio Rate: regular rate Rhythm: regular rhythm Heart sounds: no murmurs GI Palpation (GI): Soft to palpation and nontender Auscultation: normal bowel sounds General: Yes no CVA tenderness Back/Spine/Pelvis Back: no CVA tenderness Thoracic/Lumbar Spine: No lumbar spinal tenderness Skin Rashes: no rashes Extrem General: Yes no clubbing, cyanosis or edema Results Reviewed Results Reviewed: Laboratory Tests 06/16/25 06/16/25 07:10 07:18 WBC 9.5 Hgb 15.2 Hct 46.8 Plt Count 358 Sodium 146 H Potassium 3.9 Creatinine 0.74 Estimated GFR > 60 Fasting Glucose 113 H Hemoglobin A1c % 6.4 H Calcium 9.4 AST 25 ALT 26 Triglycerides 75 Cholesterol 191 LDL Cholesterol, Calc 130 H HDL Cholesterol 46 Vitamin B12 649 25-OH Vitamin D Total 25.3 L TSH 1.94 Ur Specific [place] 1.015 Urine Protein Negative Urine Glucose (UA) Negative Urine Blood Trace H Urine Nitrite Negative Ur Leukocyte Esterase Small (1+) H Microalb/Creat Ratio 44.9 H Coding Level of Care Code Est Pt Level 4 (52496) Diagnoses Chronic congestive heart failure, unspecified heart failure type I50.9 Heart failure type: unspecified Heart failure chronicity: chronic Type 2 diabetes mellitus without complication, without long-term current use of insulin E11.9 Diabetes mellitus type: type 2 Diabetes mellitus senior care insulin use: without oysterman use Diabetes mellitus complication status: without complication Chronic pulmonary embolism without acute cor pulmonale, unspecified pulmonary embolism type I27.82 Pulmonary embolism type: unspecified Chronicity: chronic Acute cor pulmonale presence: without acute cor pulmonale Asthma-COPD overlap syndrome J44.89 Gastroesophageal reflux disease without esophagitis K21.9 Esophagitis presence: without esophagitis Allergic rhinitis, unspecified seasonality, unspecified trigger J30.9 Allergic rhinitis trigger: unspecified Allergic rhinitis seasonality: unspecified History of prostate cancer Z85.46 Overactive bladder N32.81 Obesity (BMI 30-39.9) E66.9 Additional Codes PHQ-9 - 75173 - PHQ-9 Billing: Yes ([id number]) Assessment & Plan Assessment & Plan (1) Congestive heart failure: Code(s): I50.9 - Heart failure, unspecified Category: Medical Qualifiers: Heart failure type: unspecified Heart failure chronicity: chronic Qualified Code(s): I50.9 - Heart failure, unspecified Plan: Compensated Continue Furosemide 40 mg Q AM and Metoprolol ER 50 mg QD Follow up with cardiology as scheduled (2) Diabetes mellitus: Code(s): E11.9 - Type 2 diabetes mellitus without complications Category: Medical Qualifiers: Diabetes mellitus type: type 2 Diabetes mellitus oysterman insulin use: without oysterman use Diabetes mellitus complication status: without complication Qualified Code(s): E11.9 - Type 2 diabetes mellitus without complications Plan: His HgbA1c was at 6.4% on his labs done last week (was at 6.3% when it was previously checked in October 2024) - goal is at least <7.0% but ideally <6.5% Reinforced diabetic diet Continue Glimepiride 1 mg QD and Metformin 1000 mg BID Will recheck his labs and HgbA1c in 3 months for follow up (3) Pulmonary embolism: Code(s): I26.99 - Other pulmonary embolism without acute cor pulmonale Category: Medical Qualifiers: Pulmonary embolism type: unspecified Chronicity: chronic Acute cor pulmonale presence: without acute cor pulmonale Qualified Code(s): I27.82 - Chronic pulmonary embolism Plan: Continue Coumadin 7.5 mg QD Per request, we previously tried starting him on Eliquis 5 mg BID but his insurance did not cover the Rx and it was too expensive for him to afford (4) Asthma-COPD overlap syndrome: Code(s): J44.89 - Other specified chronic obstructive pulmonary disease Category: Medical Plan: Controlled Continue Trelegy Ellipta 100-62.5-25 mcg 1 inhalation QD and Albuterol HFA 2 inhalations Q 6 hours PRN Follow up with pulmonary as scheduled (5) GERD (gastroesophageal reflux disease): Code(s): K21.9 - Gastro-esophageal reflux disease without esophagitis Category: Medical Qualifiers: Esophagitis presence: without esophagitis Qualified Code(s): K21.9 - Gastro-esophageal reflux disease without esophagitis Plan: Dietary restrictions reinforced Continue Omeprazole 40 mg QD (6) Allergic rhinitis: Code(s): J30.9 - Allergic rhinitis, unspecified Category: Medical Qualifiers: Allergic rhinitis trigger: unspecified Allergic rhinitis seasonality: unspecified Qualified Code(s): J30.9 - Allergic rhinitis, unspecified Plan: Continue Cetirizine 10 mg QD PRN and Fluticasone 50 mcg nasal spray QD PRN (7) History of prostate cancer: Code(s): Z85.46 - Personal history of malignant neoplasm of prostate Category: Medical Plan: Follow-up with urology as scheduled for continuing surveillance (8) Overactive bladder: Code(s): N32.81 - Overactive bladder Category: Medical Plan: Continue Solifenacin 10 mg QD Follow up with urology as scheduled (9) Obesity (BMI 30-39.9): Code(s): E66.9 - Obesity, unspecified Category: Medical Plan: Reinforced diet/exercise as tolerated/lose weight Plan Follow up in 4 months Orders: Orders Lipid Panel 4 Months E78.00 - Pure hypercholesterolemia, unspecified UA CC w/rflx Micro + Cult 4 Months R30.0 - Dysuria Hemoglobin A1c 4 Months E11.9 - Type 2 diabetes mellitus without complications Microalbumin, Random (w Creat) 4 Months E11.9 - Type 2 diabetes mellitus without complications Complete Blood Count Auto Diff 4 Months D64.9 - Anemia, unspecified Comprehensive [place]. Panel Fast 4 Months E78.00 - Pure hypercholesterolemia, unspecified
[2025-06-22 14:51] VITALS: BP 110/80; PULSE 87; O2SAT 90; BMI 35.0
--- OUTSIDE RECORDS SUMMARY | 2025-06-23 03:19 | XMS_ITS | Patient Health Record ---
Author Organization [facility] Address [address] [place] [address] Care Team Providers Care Manager Fire Name Role Phone Stan THOMPSON, Tito Primary Care Provider Sandeep Lees Unavailable [phone] Allergies Allergen (clinical drug ingredient) Drug/Non Drug Allergy documented on EMR Reaction Allergy Type Onset Date Status povidone-iodine Betadine anaphylaxis- any Fish Drug Allergy Active Fish-EPA Unknown Drug Allergy Active tamsulosin Flomax nightmares Drug Allergy Activ e Results Component Value Reference Range Notes HEMOGLOBIN A1C (GLYCOHEMOGLO BIN) Reviewed date:07/08/2024 08:35:36 [...] (HH) 6.3 HEMOGLOBIN A1C (GLYCOHEMOGLO BIN) Reviewed date:01/06/2025 08:33:12 AM Interpretation: Performing Lab: Notes/Report: HEMOGLOBIN A1C % (HH) 6.3 HEMOGLOBIN A1C (GLYCOHEMOGLO BIN) Reviewed date:03/21/2025 08:33:31 AM Interpretation: Performing Lab: Notes/Report: HEMOGLOBIN A1C % (HH) 6.3 HEMOGLOBIN A1C (GLYCOHEMOGLO BIN) Reviewed date:04/25/2025 08:31:14 AM Interpretation: Performing Lab: Notes/Report: HEMOGLOBIN A1C % (HH) 6.3 HEMOGLOBIN A1C (GLYCOHEMOGLO BIN) Reviewed date:06/13/2025 08:32:33 AM Interpretation: Performing Lab: Notes/Report: HEMOGLOBIN A1C % (HH) 6.3 Reason For Referral No Information Medications Medication SIG (Take, Route, Frequency, Duration) Notes Start Date End Date Status metFORMIN HCl Active Aspirin 325 MG Orally Not-T aking Omeprazole Active PreserVision AREDS 2 Active Solifenacin Succinate 10 MG 1 tablet Once a day Active ProAir HFA 108 (90 Base) MCG/ACT INHALE 2 PUFFS BY MOUTH EVERY 4 HOURS NEEDED Inhalation; Duration: 16 Active Trelegy Ellipta Acti ve predniSONE Active Extra Depth Orthopedic Shoes, (1) Pair With (3) Pair Custom Heat Molded Multidensity Innersoles Dx: 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), Hammertoe Foot Deformity(M20.41,M20.42) , Preulcerative Skin Lesion(s)(L85.1) Wear Daily; Duration: 365 days Active Coumadin Active Aspir-81 Not-Taking Flovent HFA Active Valsartan Not-Taking Furosemide Active oxyBUTYnin Not-Takin g Glimepiride Active amLODIPine Besylate 10 MG TAKE 1 TABLET BY MOUTH EVERY DAY Oral; Duration: 15 Not-Taking Immunizations Vaccine Route Administration Date Status Comme nts Influenza Unknown 05/11/2019 Administered Influenza Unknown 05/04/2024 Administered COVID-19 Pfizer BioNTech Vaccine Unknown 10/19/2020 Adm inistered #2 11/09/20 Social History Tobacco Use: Social History Observation [...] Problem Acquired hammer toe of right foot (1493429156457 105) Other hammer toe(s) (acquired), right foot (M20.41) Active confirmed Response to treatment,I mprovement Problem Type 2 diabetes mellitus with peripheral angiopathy (825830003) Type 2 diabetes mellitus with diabetic peripheral angiopathy without gangrene (E11.51) Active confirmed Problem Acquired hammer toe of left foot (1283876727340 103) Other hammer toe(s) (acquired), left foot (M20.42) Active confirmed Response to treatment,I mprovement Problem Plantar wart (94158883) Plantar wart (B07.0) Active confirmed Chronic Vital Signs Blood pressure diastolic 77 mm Hg 06/13/2025 Height 5ft 10in in 06/13/2025 Blood pressure systolic 127 mm Hg 06/13/2025 Weight 241 lbs 06/13/2025 BMI 34.58 kg/m2 06/13/2025 Procedures Procedure Date Ordered Date Performed Result Body Sit e 23662-CPUPFPE NAIL, 6 OR MORE 07/08/2024 N/A 66512-Lvqk Destruction, 1-14 07/08/2024 N/A 43194-NBVN SKIN LESIONS, 2 TO 4 07/08/2024 N/A 31946-Ecrx Destruction, 1-14 08/12/2024 N/A 17012-AWFBGXQ NAIL, 6 OR MORE 09/16/2024 N/A 28821-Vdfn Destruction, 1-14 09/16/2024 N/A 62958-LHXQ SKIN LESIONS, 2 TO 4 09/16/2024 N/A 16165-Snyt Destruction, 1-14 10/21/2024 N/A 83497-URFVMKF NAIL, 6 OR MORE 11/25/2024 N/A 32011-Fujk Destruction, 1-14 11/25/2024 N/A 76382-LGGX SKIN LESIONS, 2 TO 4 11/25/2024 N/A 94527-Ymff Destruction, 1-14 01/06/2025 N/A 66468-NREMTYL NAIL, 6 OR MORE 02/10/2025 N/A 36380-Vpeh Destruction, 1-14 02/10/2025 N/A 29544-EYKT SKIN LESIONS, 2 TO 4 02/10/2025 N/A 39448-Ztil Destruction, 1-14 03/21/2025 N/A 05156-GKDBPDE NAIL, 6 OR MORE 04/25/2025 N/A 64914-Jqwk Destruction, 1-14 04/25/2025 N/A 54158-CLXV SKIN LESIONS, 2 TO 4 04/25/2025 N/A 50549-Knwn Destruction, 1-14 06/13/2025 N/A Encounters Encounter Location Date Provider Diagnosis [address] [address] 07/08/2024 Sandeep Buckley Type 2 diabetes mellitus with diabetic peripheral angiopathy without gangrene E11.51 ; Plantar wart B07.0 ; Tinea unguium B35.1 ; Pain in right toe(s) M79.674 ; Pain in left toe(s) M79.675 ; Pain in right foot M79.671 and Pain in left foot M79.[address] [address] 08/12/2024 Sandeep Buckley Right foot pain M79.671 ; Plantar wart B07.0 ; Left foot pain M79.672 ; Other hammer toe(s) (acquired), right foot M20.41 and Other hammer toe(s) (acquired), left foot M20.[address] [address] 09/16/2024 Sandeep Buckley Type 2 diabetes mellitus with diabetic peripheral angiopathy without gangrene E11.51 ; Plantar wart B07.0 ; Tinea unguium B35.1 ; Pain in right toe(s) M79.674 ; Pain in left toe(s) M79.675 ; Pain in right foot M79.671 ; Pain in left foot M79.672 ; Other hammer toe(s) (acquired), right foot M20.41 and Other hammer toe(s) (acquired), left foot M20.[address] [address] 10/21/2024 Sandeep Buckley Right foot pain M79.671 ; Plantar wart B07.0 and Left foot pain M79.[address] [address] 11/25/2024 Sandeepsanjana CastIna Type 2 diabetes mellitus with diabetic peripheral angiopathy without gangrene E11.51 ; Plantar wart B07.0 ; Tinea unguium B35.1 ; Pain in right toe(s) M79.674 ; Pain in left toe(s) M79.675 ; Pain in right foot M79.671 and Pain in left foot M79.[address] [address] 01/06/2025 Sandeep Ina Right foot pain M79.671 ; Plantar wart B07.0 and Left foot pain M79.[address] [address] 02/10/2025 Sandeep Ina Type 2 diabetes mellitus with diabetic peripheral angiopathy without gangrene E11.51 ; Plantar wart B07.0 ; Tinea unguium B35.1 ; Pain in right toe(s) M79.674 ; Pain in left toe(s) M79.675 ; Pain in right foot M79.671 and Pain in left foot M79.[address] [address] 03/21/2025 Sandeep Ina Right foot pain M79.671 ; Plantar wart B07.0 and Left foot pain M79.[address] [address] 04/25/2025 Sandeep Ina Type 2 diabetes mellitus with diabetic peripheral angiopathy without gangrene E11.51 ; Plantar wart B07.0 ; Tinea unguium B35.1 ; Pain in right toe(s) M79.674 ; Pain in left toe(s) M79.675 ; Pain in right foot M79.671 and Pain in left foot M79.[address] [address] 06/13/2025 Sandeep Buckley Right foot pain M79.671 ; [...] E11.51) 11/25/2024 Plantar wart (ICD-10 - B07.0) 01/06/2025 Plantar wart (ICD-10 - B07.0) 01/06/2025 Right foot pain (ICD-10 - M79.671) 02/10/2025 Type 2 diabetes mellitus with diabetic peripheral angiopathy without gangrene (ICD-10 - E11.51) 02/10/2025 Plantar wart (ICD-10 - B07.0) 03/21/2025 Plantar wart (ICD-10 - B07.0) 03/21/2025 Right foot pain (ICD-10 - M79.671) 04/25/2025 Type 2 diabetes mellitus with diabetic peripheral angiopathy without gangrene (ICD-10 - E11.51) 04/25/2025 Plantar wart (ICD-10 - B07.0) 06/13/2025 Plantar wart (ICD-10 - B07.0) Chronic 06/13/2025 Right foot pain (ICD-10 - M79.671) 06/13/2025 Left foot pain (ICD-10 - M79.672) 04/25/2025 Tinea unguium (ICD-10 - B35.1) 03/21/2025 Left foot pain (ICD-10 - M79.672) 02/10/2025 Tinea unguium (ICD-10 - B35.1) 01/06/2025 Left foot pain (ICD-10 - M79.672) 11/25/2024 Tinea unguium (ICD-10 - B35.1) 10/21/2024 Left foot pain (ICD-10 - M79.672) 09/16/2024 Tinea unguium (ICD-10 - B35.1) 08/12/2024 Left foot pain (ICD-10 - M79.672) 07/08/2024 Tinea unguium (ICD-10 - B35.1) 07/08/2024 Pain in right toe(s) (ICD-10 - M79.674) 08/12/2024 Other hammer toe(s) (acquired), right foot (ICD-10 - M20.41) Patient Educated with: DIABETIC FOOT CARE INSTRUCTIONS.p df (DIABETIC FOOT CARE INSTRUCTIONS.p df) 09/16/2024 Pain in right toe(s) (ICD-10 - M79.674) 11/25/2024 Pain in right toe(s) (ICD-10 - M79.674) 02/10/2025 Pain in right toe(s) (ICD-10 - M79.674) 04/25/2025 Pain in right toe(s) (ICD-10 - M79.674) 04/25/2025 Pain in left toe(s) (ICD-10 - M79.675) 02/10/2025 Pain in left toe(s) (ICD-10 - M79.675) 11/25/2024 Pain in left toe(s) (ICD-10 - M79.675) 09/16/2024 Pain in left toe(s) (ICD-10 - M79.675) 08/12/2024 Other hammer toe(s) (acquired), left foot (ICD-10 - M20.42) 07/08/2024 Pain in left toe(s) (ICD-10 - M79.675) 07/08/2024 Pain in right foot (ICD-10 - M79.671) 09/16/2024 Pain in right foot (ICD-10 - M79.671) 11/25/2024 Pain in right foot (ICD-10 - M79.671) 02/10/2025 Pain in right foot (ICD-10 - M79.671) 04/25/2025 Pain in right foot (ICD-10 - M79.671) 04/25/2025 Pain in left foot (ICD-10 - M79.672) 02/10/2025 Pain in left foot (ICD-10 - M79.672) 11/25/2024 Pain in left foot (ICD-10 - M79.672) 09/16/2024 Pain in left foot (ICD-10 - M79.672) 07/08/2024 Pain in left foot (ICD-10 - M79.672) 09/16/2024 Other hammer toe(s) (acquired), right foot (ICD-10 - M20.41) Response to treatment,Impro vement 09/16/2024 Other hammer toe(s) (acquired), left foot (ICD-10 - M20.42) Response to treatment,Impro vement 10/21/2024 Other 01/06/2025 Other 03/21/2025 Other 06/13/2025 Other Plan Of Treatment Pending Test Test Name Order Date 33932-XGOTONU NAIL, 6 OR MORE 08/21/2017 06065-MTLTNQX NAIL, 6 OR MORE 10/27/2017 12118-VELLZNC NAIL, 6 OR MORE 01/15/2018 29043-QHPSWDU NAIL, 6 OR MORE 04/13/2018 29883-NMQGFSL NAIL, 6 OR MORE 07/06/2018 96393-AUZIKGI NAIL, 6 OR MORE 2018 63688-CPUHSDJ NAIL, 6 OR MORE 12/31/2018 56566-UCMMMOT NAIL, 6 OR MORE 03/18/2019 22944-ZUUILYM NAIL, 6 OR MORE 05/27/2019 89492-FHJSRED NAIL, 6 OR MORE 08/16/2019 11866-HTNANRO NAIL, 6 OR MORE 10/28/2019 23185-AVXKPYN NAIL, 6 OR MORE 01/17/2020 84126-NUTOZKZ NAIL, 6 OR MORE 04/19/2020 70174-HPDIMRY NAIL, 6 OR MORE 07/05/2020 18860-UGAYVNH NAIL, 6 OR MORE 09/21/2020 62681-NSLEMMS NAIL, 6 OR MORE 12/04/2020 21868-NGWZQRI NAIL, 6 OR MORE 02/15/2021 06764-LJLMESY NAIL, 6 OR MORE 04/25/2021 54741-GGGDNJC NAIL, 6 OR MORE 07/05/2021 23126-LUIKQGM NAIL, 6 OR MORE 09/20/2021 93037-TOIRFWD NAIL, 6 OR MORE 01/09/2022 64244-LSYPOCK NAIL, 6 OR MORE 04/15/2022 90144-QKHSITE NAIL, 6 OR MORE 07/11/2022 10553-PBZGVJK NAIL, 6 OR MORE 10/03/2022 51828-TEWOPYZ NAIL, 6 OR MORE 01/09/2023 31864-OSEOVAJ NAIL, 6 OR MORE 03/27/2023 81977-BSSFTGB NAIL, 6 OR MORE 06/23/2023 46430-TXNBBVM NAIL, 6 OR MORE 09/03/2023 29152-MCQDLZD NAIL, 6 OR MORE 12/01/2023 67798-EQMOTER NAIL, 6 OR MORE 02/16/2024 84625-ROAKCXR NAIL, 6 OR MORE 04/27/2024 01575-RYUDZWB NAIL, 6 OR MORE 07/08/2024 20578-QOIPWWT NAIL, 6 OR MORE 09/16/2024 76382-RUAFVUH NAIL, 6 OR MORE 11/25/2024 92853-QRADPOC NAIL, 6 OR MORE 02/10/2025 33727-DIQZEXB NAIL, 6 OR MORE 04/25/2025 21529-Bdbx Destruction, 1-14 04/25/2025 29418-Rtwf Destruction, -14 02/10/2025 77879-Cjak Destruction, 1-14 06/13/2025 20974-Slyw Destruction, 1-14 03/21/2025 23406-Tcwx Destruction, 1-14 11/25/2024 75440-Jsfj Destruction, 1-14 10/21/2024 40664-Dsxm Destruction, 1-14 01/06/2025 87236-Sdtx Destruction, -14 09/16/2024 80269-Ammv Destruction, -14 06/04/2024 12389-Yfnv Destruction, -14 08/12/2024 29381-Osog Destruction, 14 07/08/2024 16714-Qqmh Destruction, -14 04/27/2024 84719-Gsgf Destruction, 08-1702/16/2024 47132-Pddj Destruction, 08-1701/12/2024 96631-Dgdr Destruction, 08-1703/18/2024 31548-Qzvo Destruction, 14 12/01/2023 15303-Hutv Destruction, 14 07/30/2023 62753-Nvws Destruction, 14 10/27/2023 05952-Jnyb Destruction, 14 09/03/2023 82727-Phyo Destruction, 14 06/23/2023 23108-Lmie Destruction, 08-1703/27/2023 82926-Fess Destruction, 08-1702/20/2023 90695-Qwzp Destruction, 08-1705/05/2023 63983-Thox Destruction, 08-1701/09/2023 56764-Puxu Destruction, 08-1708/22/2022 91814-Pgha Destruction, 08-1711/18/2022 72133-Inkr Destruction, 08-1710/03/2022 21439-Gmve Destruction, 08-1707/11/2022 50838-Aeio Destruction, 08-1704/15/2022 74508-Qrxa Destruction, 08-1705/30/2022 46468-Gkea Destruction, 08-1702/21/2022 36464-Janb Destruction, 14 09/20/2021 47346-Nzub Destruction, 08-1710/29/2021 50802-Eqoc Destruction, 14 12/05/2021 88606-Tvze Destruction, 14 01/09/2022 71710-Jzbv Destruction, 14 07/05/2021 02009-Quji Destruction, 14 04/25/2021 95443-Jres Destruction, 14 05/31/2021 42729-Bcbd Destruction, 08-1702/15/2021 87902-Ptve Destruction, 08-1703/21/2021 01139-Wfse Destruction, 08-1712/04/2020 12335-Hwjo Destruction, 08-1701/11/2021 65502-Ddlh Destruction, 08-1709/21/2020 23686-Hxpp Destruction, 08-1710/30/2020 37849-Bzfq Destruction, 08-1707/05/2020 12118-Nkrz Destruction, 08-1708/14/2020 14890-Pjlm Destruction, 08-1704/19/2020 66145-Yucg Destruction, 08-1706/05/2020 54831-Ybqc Destruction, 08-1701/17/2020 22371-Smoe Destruction, 08-1703/09/2020 31803-Urrh Destruction, 08-1710/28/2019 98167-Sehr Destruction, 08-1712/09/2019 59596-Xmhg Destruction, 08-1708/16/2019 18298-Lloc Destruction, 08-1709/22/2019 11855-Uqce Destruction, 08-1705/27/2019 03790-Jlme Destruction, 08-1706/24/2019 13611-Mztx Destruction, 08-1707/14/2019 86462-Uble Destruction, 08-1703/18/2019 29839-Vqjq Destruction, 08-1704/19/2019 02042-Ewrm Destruction, 08-1712/31/2018 58468-Isje Destruction, 08-1702/15/2019 27451-Utis Destruction, 08-1709/28/2018 03022-Rsxa Destruction, 08-1711/19/2018 51602-Jszf Destruction, 08-1708/17/2018 67127-Hpsd Destruction, 08-1705/25/2018 22777-Cfki Destruction, 08-1707/06/2018 95763-Sggj Destruction, 08-1704/13/2018 15971-Zmrf Destruction, 08-1710/27/2017 05551-Aalq Destruction, 08-1708/21/2017 69682-Ggkn Destruction, 08-1701/15/2018 81363- Debride <25 sq cm 12/24/2017 13372- Debride <25 sq cm 12/31/2017 54648-PBMF SKIN LESIONS, 2 TO 4 07/11/20 22 35404-BVKA SKIN LESIONS, 2 TO 4 10/04/19 23 49016-POOH SKIN LESIONS, 2 TO 4 01/10/20 23 78999-UKEU SKIN LESIONS, 2 TO 4 03/27/20 23 53653-EIQG SKIN LESIONS, 2 TO 4 06/23/20 23 63421-TMWN SKIN LESIONS, 2 TO 4 09/03/19 24 30526-WECA SKIN LESIONS, 2 TO 4 12/01/19 24 71436-CXAF SKIN LESIONS, 2 TO 4 02/16/20 24 74180-XLPR SKIN LESIONS, 2 TO 4 04/27/20 24 69798-SMSS SKIN LESIONS, 2 TO 4 07/08/20 24 38483-ZVXZ SKIN LESIONS, 2 TO 4 09/16/19 25 93831-NNVV SKIN LESIONS, 2 TO 4 11/26/19 25 42172-ZNSA SKIN LESIONS, 2 TO 4 02/11/20 25 97669-LMZW SKIN LESIONS, 2 TO 4 04/25/20 25 HEMOGLOBIN A1C (GLYCOHEMOGLOBIN) 025 22874 - TENOTOMY, OPEN, EXTENSOR 018 Next Appt Details Provider Name:Sandeep Buckley , 07/25/2025 08:30:00 AM, [address] [place] [address], [place], [address], Provider Name:Sandeep Ivette Buckley , 09/05/2025 08:30:00 AM, [address] [place] [address], [place], [address], Insurance Providers Payer Name Payer Address Payer Phone Subscriber Number Group Number Insured Name Patient Relationship to Insured Coverage Start Date Coverage End Date Medicare [facility] [address] [place] [address] [phone] [id number] Otis Mullen Self - patient is the insured [address] SATH[place] Meyer [address] [phone] [id number] Otis Mullen Self - patient is the insured Medical (General) History Medical History History ICD Code asthma Chicken pox Hypertension Measles Mumps Reflux Surgical History Surgery Date(Month/Year) whipple procedure 01/2004 colon 03/22/2015 cataract surgery 06/2018 biopsy prostate 11/2022 lasik 06/20/23 Hospitalization History Reason Date(Month/Year) [facility] - Infection 03[facility]12[facility]24 [facility]- Kidney Stones 03/04/24-03/07/24 [facility]- pneumonia, 3 day stay 11/2023 [facility]- kidney stone 03/2022 [facility] nine days 10/2021 [facility]- covid 07/17-08/03 Cellulitis on lt leg 09/16/2018-09/18/19 19 [facility] Dehydration 05/21/18 & 05/22/18 [facility] 01/07/18-01/10/18
--- OUTSIDE RECORDS SUMMARY | 2025-06-23 03:19 | XMS_ITS | Clinical Summary ---
Author Organization [facility] Address [address] [place] [id number] Phone Care Team Providers Care Candy Vendor Name Role Phone Jonathan Campoverde MD Primary Care Provider [phone] Allergies Active Allergy Reactions Criticality Noted Date [...] ENHANCE SUPPLEMENT MEDICARE PART A & B [facility] MEDICARE ENHANCE SUPPLEMENT MEDICARE PART A & B [facility] MEDICARE ENHANCE SUPPLEMENT MEDICARE PART A & B [facility] MEDICARE ENHANCE SUPPLEMENT MEDICARE PART A & B [facility] MEDICARE ENHANCE SUPPLEMENT MEDICARE PART A & B [facility] MEDICARE ENHANCE SUPPLEMENT Care Teams Candy Vendor Relationship Specialty Start Date End Date Jonathan Campoverde MD [address] [place] [address] [place] [address] PCP - General Internal Medicine 06/03/24 Additional Source Comments The information contained in this document represents components of the legal health record. It is not the complete legal health record.[facility]
== END 2025-06-22 15:43 | disposition home or self-care (01) ==
LOC: HO.HMCH 14:46
PROVIDERS: PCP Internal Medicine; Visit Provider Internal Medicine
DX: I50.9 Heart failure, unspecified (principal); E11.9 Type 2 diabetes mellitus without complications; I27.82 Chronic pulmonary embolism; J44.89 Other specified chronic obstructive pulmonary disease; E66.9 Obesity, unspecified; Z68.35 Body mass index [BMI] 35.0-35.9, adult; K21.9 Gastro-esophageal reflux disease without esophagitis; J30.9 Allergic rhinitis, unspecified; Z85.46 Personal history of malignant neoplasm of prostate; N32.81 Overactive bladder

== ENCOUNTER → 2025-06-22 14:45 | Outpatient (BNVA) | payer MEDICARE, OTHER, SELFPAY | PROVIDERS: PCP Internal Medicine; Visit Provider Internal Medicine | DX: E11.9 Type 2 diabetes mellitus without complications (principal); I50.9 Heart failure, unspecified; I27.82 Chronic pulmonary embolism; J44.89 Other specified chronic obstructive pulmonary disease; K21.9 Gastro-esophageal reflux disease without esophagitis; J30.9 Allergic rhinitis, unspecified; N32.81 Overactive bladder; E66.9 Obesity, unspecified; Z85.46 Personal history of malignant neoplasm of prostate; Z68.35 Body mass index [BMI] 35.0-35.9, adult; Z71.3 Dietary counseling and surveillance | CPT/HCPCS: 96127; 99212 ==

== ENCOUNTER 2025-06-23 08:04 | Outpatient (AMB) | payer MEDICARE, OTHER, SELFPAY ==
[2025-06-23 08:16] LABS: Prothrombin Time Whole Bld POC 24.6 sec (11.1-13.5); ~PT, ~INR - Anti Coag Clinic 2.1 (0.9-1.1)
--- NOTE | 2025-06-23 08:23 | MHC.OFFVISCO ---
Intake Intake Visit Reasons: Anticoagulation Allergies seafood Allergy (Severe, Verified 06/23/25 08:10) Angioedema, SOB nicotine Allergy (Intermediate, Verified 06/23/25 08:10) Rash fish derived (FISH) Allergy (Unknown, Verified 06/23/25 08:10) ANGIOEDEMA tamsulosin (Flomax) Adverse Reaction (Intermediate, Verified 06/23/25 08:10) nightmares Medication List - Last Reconciled 06/23/25 by Marie Shaver RN albuterol sulfate mg inhalation Q6H PRN albuterol sulfate 90 mcg/actuation inhalation azithromycin (Zithromax) 250 mg PO 3XW blood sugar diagnostic (FreeStyle Lite Strips) daily blood-glucose meter (FreeStyle [place] Lite kit) As directed cetirizine 10 mg PO DAILY PRN [custom heat molded multidensity innersoles wear 3 pairs of custom heat molded multidensity innersoles wear] diclofenac sodium 1% 2 grams topical QID docusate sodium (Stool Softener) 100 mg PO DAILY [extra depth orthopedic shoes with 3 pairs of custom heat molded multidensity innersoles wear] fluticasone propionate 50 mcg/actuation 1 spray intranasal DAILY hdkesjxdugi-fnufghhlr-rsudfzde 100-62.5-25 mcg (Trelegy Ellipta) 1 ea inhalation DAILY furosemide 40 mg PO QAM glimepiride 1 mg PO DAILY hydrocortisone 2.5% appl topical lancets (FreeStyle Lancets) test daily metformin 1,000 mg PO BID metoprolol succinate ER 50 mg PO DAILY omeprazole 40 mg PO DAILY polyethylene glycol 3350 (Miralax) 17 grams PO DAILY saw palmetto 450 mg PO BID solifenacin 10 mg PO DAILY triamcinolone acetonide 0.1% 1 appl topical BID-TID vitamins A,C,S-bbgi-russpy 2,148 mcg-113 mg-45 mg-17.4mg (PreserVision AREDS) 1 tab PO BID warfarin 7.5 mg See Protocol PO DAILY MDD 1.5 tablets daily Nursing Note INR: 2.1 in therapeutic range of 2-3 Medications and supplements reviewed No changes in health, diet, medications, or supplements, Denies any signs and symptoms of bleeding or bruising or clotting. Bleeding, bruising, clotting discussed Nutritional guidance given Dose: weekly dose increased as pt has been running low for INR range. Was 1.6 last visit with a boost in dose and still only 2.1. He will now take 7.5mg X 4 days and 11.25mg X 3 days )M/W/F) F/U INR: 2 weeks Patient verbalizes understanding of instructions given Anti-Coag Initial Assessment Social Hx Patient Tobacco Use Status: Former Tobacco user Tobacco use type: Cigarette alcohol intake: current Alcohol intake frequency: holidays/special occasions only Cardiovascular Hx: HTN, CHF and Cardiomyopathy Lung Disease HX: Asthma, COPD and DVT/PE Endocrine Hx: Diabetes Blood Disorder Hx: Other GI Hx: Other Cancer HX: No Coding Level of Care Code Est Patient Level 1 Diagnoses Current use of anticoagulant therapy Z79.01 Results AMB INR Fingerstick AMB INR Fingerstick 2.1 Last Edit by Marie Shaver RN on 06/23/25 08:16 interface delay Assessment & Plan Assessment & Plan (1) Current use of anticoagulant therapy: Code(s): Z79.01 - spear fisher (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
== END 2025-06-23 08:27 | disposition home or self-care (01) ==
LOC: HO.ACS 08:04
PROVIDERS: PCP Internal Medicine; Visit Provider Internal Medicine Medical Oncology
DX: Z79.01 Long term (current) use of anticoagulants (principal)

== ENCOUNTER → 2025-06-23 08:04 | Outpatient (BNVA) | payer MEDICARE, OTHER, SELFPAY | PROVIDERS: PCP Internal Medicine; Visit Provider Internal Medicine Medical Oncology | DX: I26.99 Other pulmonary embolism without acute cor pulmonale (principal); Z51.81 Encounter for therapeutic drug level monitoring; Z79.01 Long term (current) use of anticoagulants | CPT/HCPCS: 85610; 99211 ==

== ENCOUNTER 2025-07-08 08:01 | Outpatient (AMB) | payer MEDICARE, OTHER, SELFPAY ==
[2025-07-08 08:06] LABS: Prothrombin Time Whole Bld POC 26.5 sec (11.1-13.5); ~PT, ~INR - Anti Coag Clinic 2.2 (0.9-1.1)
--- NOTE | 2025-07-08 08:11 | MHC.OFFVISCO ---
Intake Intake Visit Reasons: Anticoagulation Allergies seafood Allergy (Severe, Verified 07/08/25 08:01) Angioedema, SOB nicotine Allergy (Intermediate, Verified 07/08/25 08:01) Rash fish derived (FISH) Allergy (Unknown, Verified 07/08/25 08:01) ANGIOEDEMA tamsulosin (Flomax) Adverse Reaction (Intermediate, Verified 07/08/25 08:01) nightmares Medication List - Last Reconciled 07/08/25 by Marie Shaver RN albuterol sulfate mg inhalation Q6H PRN albuterol sulfate 90 mcg/actuation inhalation azithromycin (Zithromax) 250 mg PO 3XW blood sugar diagnostic (FreeStyle Lite Strips) daily blood-glucose meter (FreeStyle [place] Lite kit) As directed cetirizine 10 mg PO DAILY PRN [custom heat molded multidensity innersoles wear 3 pairs of custom heat molded multidensity innersoles wear] diclofenac sodium 1% 2 grams topical QID docusate sodium (Stool Softener) 100 mg PO DAILY [extra depth orthopedic shoes with 3 pairs of custom heat molded multidensity innersoles wear] fluticasone propionate 50 mcg/actuation 1 spray intranasal DAILY obqvmyadgao-xohyjvbot-yxeobfkw 100-62.5-25 mcg (Trelegy Ellipta) 1 ea inhalation DAILY furosemide 40 mg PO QAM glimepiride 1 mg PO DAILY hydrocortisone 2.5% appl topical lancets (FreeStyle Lancets) test daily metformin 1,000 mg PO BID metoprolol succinate ER 50 mg PO DAILY omeprazole 40 mg PO DAILY polyethylene glycol 3350 (Miralax) 17 grams PO DAILY prednisone mg PO saw palmetto 450 mg PO BID solifenacin 10 mg PO DAILY triamcinolone acetonide 0.1% 1 appl topical BID-TID vitamins A,C,U-kgxn-nuciya 2,148 mcg-113 mg-45 mg-17.4mg (PreserVision AREDS) 1 tab PO BID warfarin 7.5 mg See Protocol PO DAILY MDD 1.5 tablets daily Nursing Note INR: 2.2 in therapeutic range of 2-3 Pt has a URI and called [facility] to inform he was on prednisone and zithromycin. Course of treatment completed. [facility] cut his warfarin dose appropriately. Today he states he is starting another round of prednisone taper. Medications and supplements reviewed No changes in diet or supplements, Denies any signs and symptoms of bleeding or bruising or clotting. Bleeding, bruising, clotting discussed Nutritional guidance given Dose: will decrease dose 1 day over the coming week due to prednisone. See Dose Management sheet. F/U INR: 1 week Patient verbalizes understanding of instructions given Anti-Coag Initial Assessment Social Hx Patient Tobacco Use Status: Former Tobacco user Tobacco use type: Cigarette alcohol intake: current Alcohol intake frequency: holidays/special occasions only Cardiovascular Hx: HTN, CHF and Cardiomyopathy Lung Disease HX: Asthma, COPD and DVT/PE Endocrine Hx: Diabetes Blood Disorder Hx: Other GI Hx: Other Cancer HX: No Coding Level of Care Code Est Patient Level 1 Diagnoses Current use of anticoagulant therapy Z79.01 Results AMB INR Fingerstick AMB INR Fingerstick 2.2 Last Edit by Marie Shaver RN on 07/08/25 08:07 interface delay Assessment & Plan Assessment & Plan (1) Current use of anticoagulant therapy: Code(s): Z79.01 - jail (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
--- OUTSIDE RECORDS SUMMARY | 2025-07-08 08:11 | XMS_ITS | Encounter Summary ---
Author Organization [facility] Address [address] [place] [address] Care Team Providers Care Hand Stripper Name Role Phone Physician, Pcp Unknown Primary Care Provider Kaia vailable Encounter Details Date Type Department Care Team (Late st Contact Info) Description 06/10/[address] [facility] - Main Lab [address] [facility] [place] [address] Jimmy Allen MD [address] [facility] [address] [place] [id number] Gross hematuria Social History Tobacco Use Types Packs/Day Years Used Date Smoking Tobacco: Never Assessed Sex and Gender Information Value Date Recorded Sex Assigned at Not on file Legal Sex Male 6:32 AM EST Gender Identity Not on file Sexual Orientation Not on file documented as of this encounter Plan of Treatment Not on file documented as of this encounter Procedures Procedure Name Priority Date/Time Associated Diagnosis Comments NON-GYNECOLOGIC CYTOLOGY Routine 06/02/2025 12:00 AM EDT Gross hematuria documented in this encounter Results * Non-gynecologic cytology (06/02/2025 12:00 AM EDT) Final Diagnosis A. Urine, Voided, [id number]: Negative for high grade urothelial carcinoma. Results of U[employer]ion fluorescence in situ hybridization (FISH) testing: CEP3: Normal CEP7: Normal CEP17: Normal LSI 9p21: Normal Interpretation: Normal profile Controls stained appropriately. Note: The results are intended as a screening device and should be interpreted in association with other clinical and pathological findings. 06/17/2025 12:12 PM EST [facility] at 1212 EST Specimen A Adequacy Satisfactory for evaluation 06/17/2025 12:12 PM [facility] Clinical Information Gross hematuria R31.0 Urine Cytology/FISH (now) 06/17/2025 12:12 PM [facility] Gross Description A. Urine, Voided, [id number]: Received one ThinPrep slide for cytology and one ThinPrep slide for U[employer] FISH 06/17/2025 12:12 PM [facility] Disclaimer Unless otherwise specified, all tissue is 10% NB formalin fixed and paraffin embedded. Technical pathology services provided by [facility] [address] [facility] [address] [place] [address] (CLIA #[id number]/Iliana Hobson MD, Poultry Trimmer) 06/17/2025 12:12 PM [facility] Urine Urine specimen from urethra / Unknown 06/02/2025 06/10/2025 10:45 AM EST us Jimmy Allen MD LAB CYTOLOGY ORDERABLES Final R esult [facility] [address] [place] [address], documented in this encounter Visit Diagnoses Diagnosis Gross hematuria documented in this encounter Care Teams Hand Stripper Relationship Specialty Start Date End Date Physician, Pcp Unknown PCP - General 06/10/25 documented as of this encounter
--- OUTSIDE RECORDS SUMMARY | 2025-07-08 08:11 | XMS_ITS | Clinical Summary ---
Author Organization [address] [facility] Address [address] [place] [address] Phone Care Team Providers Care Tennis Ball Coverer Hand Name Role Phone Physician, Pcp Unknown Primary Care Provider Kaia vailable Encounters Date Type Department Care Team Description 06/10/2025 Lab Requisition [facility] - Main Lab [address] [facility] [place] [address] Jimmy Allen MD Gross hematuria [...] on patient's age to complete this topic Procedures Procedure Name Priority Date/Time Associated Diagnosis Comments NON-GYNECOLOGIC CYTOLOGY Routine 06/02/2025 12:00 AM EDT Gross hematuria from Last 3 Months Results * Non-gynecologic cytology (06/02/2025 12:00 AM EDT) Final Diagnosis A. Urine, Voided, [id number]: Negative for high grade urothelial carcinoma. Results of UroVysion fluorescence in situ hybridization (FISH) testing: CEP3: Normal CEP7: Normal CEP17: Normal LSI 9p21: Normal Interpretation: Normal profile Controls stained appropriately. Note: The results are intended as a screening device and should be interpreted in association with other clinical and pathological findings. 06/17/2025 12:[address] [facility] at 1212 EST Specimen A Adequacy Satisfactory for evaluation 06/17/2025 12:12 PM [facility] Clinical Information Gross hematuria R31.0 Urine Cytology/FISH (now) 06/17/2025 12:12 PM [facility] Gross Description A. Urine, Voided, [id number]: Received one ThinPrep slide for cytology and one ThinPrep slide for UroVysion FISH 06/17/2025 12:12 PM [facility] Disclaimer Unless otherwise specified, all tissue is 10% NB formalin fixed and paraffin embedded. Technical pathology services provided by [facility] at [address] [facility] [address], [place] [address] (CLIA #[id number]/Iliana Hobson MD, Cooker Sulfate) 06/17/2025 12:12 PM [facility] Urine Urine specimen from urethra / Unknown 06/02/2025 06/10/2025 10:45 AM EST us Jimmy Allen MD LAB CYTOLOGY ORDERABLES Final R esult [facility] [address] [place] [address], from Last 3 Months Insurance MEDICARE Care Teams Tennis Ball Coverer Hand Relationship Specialty Start Date End Date Physician, Pcp Unknown PCP - General 06/10/25
== END 2025-07-08 08:15 | disposition home or self-care (01) ==
LOC: HO.ACS 08:01
PROVIDERS: PCP Internal Medicine; Visit Provider Internal Medicine Medical Oncology
DX: Z79.01 Long term (current) use of anticoagulants (principal)

== ENCOUNTER → 2025-07-08 08:01 | Outpatient (BNVA) | payer MEDICARE, OTHER, SELFPAY | PROVIDERS: PCP Internal Medicine; Visit Provider Internal Medicine Medical Oncology | DX: I26.99 Other pulmonary embolism without acute cor pulmonale (principal); Z51.81 Encounter for therapeutic drug level monitoring; Z79.01 Long term (current) use of anticoagulants | CPT/HCPCS: 85610; 99211 ==

== ENCOUNTER 2025-07-15 08:11 | Outpatient (AMB) | payer MEDICARE, OTHER, SELFPAY ==
[2025-07-15 08:21] LABS: Prothrombin Time Whole Bld POC 16.3 sec (11.1-13.5); ~PT, ~INR - Anti Coag Clinic 1.4 (0.9-1.1)
--- NOTE | 2025-07-15 08:30 | MHC.OFFVISCO ---
Intake Intake Visit Reasons: Anticoagulation Allergies seafood Allergy (Severe, Verified 07/15/25 08:16) Angioedema, SOB nicotine Allergy (Intermediate, Verified 07/15/25 08:16) Rash fish derived (FISH) Allergy (Unknown, Verified 07/15/25 08:16) ANGIOEDEMA tamsulosin (Flomax) Adverse Reaction (Intermediate, Verified 07/15/25 08:16) nightmares Medication List - Last Reconciled 07/15/25 by Marie Shaver RN albuterol sulfate mg inhalation Q6H PRN albuterol sulfate 90 mcg/actuation inhalation azithromycin (Zithromax) 250 mg PO 3XW blood sugar diagnostic (FreeStyle Lite Strips) daily blood-glucose meter (FreeStyle [place] Lite kit) As directed cetirizine 10 mg PO DAILY PRN [custom heat molded multidensity innersoles wear 3 pairs of custom heat molded multidensity innersoles wear] diclofenac sodium 1% 2 grams topical QID docusate sodium (Stool Softener) 100 mg PO DAILY [extra depth orthopedic shoes with 3 pairs of custom heat molded multidensity innersoles wear] fluticasone propionate 50 mcg/actuation 1 spray intranasal DAILY ikzcgqpzeav-atmeqquoa-zynearga 100-62.5-25 mcg (Trelegy Ellipta) 1 ea inhalation DAILY furosemide 40 mg PO QAM glimepiride 1 mg PO DAILY hydrocortisone 2.5% appl topical lancets (FreeStyle Lancets) test daily metformin 1,000 mg PO BID metoprolol succinate ER 50 mg PO DAILY omeprazole 40 mg PO DAILY polyethylene glycol 3350 (Miralax) 17 grams PO DAILY prednisone mg PO saw palmetto 450 mg PO BID solifenacin 10 mg PO DAILY triamcinolone acetonide 0.1% 1 appl topical BID-TID vitamins A,C,U-anuj-kjvzpj 2,148 mcg-113 mg-45 mg-17.4mg (PreserVision AREDS) 1 tab PO BID warfarin 7.5 mg See Protocol PO DAILY MDD 1.5 tablets daily Nursing Note INR: 1.4 out of therapeutic range of 2-3 Pt denies missed dose Medications and supplements reviewed Patient status: states better but not back to normal self. Still has cough Medications or supplements: still on prednisone to complete in 2 days Diet: no changes, states appetite is good Denies any signs and symptoms of bleeding or clotting or unusual bruising Bleeding, bruising, clotting discussed Nutritional guidance given: to avoid greens X 2 days Dose: increase today's dose of 11.25mg to 15mg then increase tomorrow's dose from 7.5mg to 11.25mg then resume usual dose F/U INR Date: 07/20/25?? Patient verbalizing understanding of instructions given. Anti-Coag Initial Assessment Social Hx Patient Tobacco Use Status: Former Tobacco user Tobacco use type: Cigarette alcohol intake: current Alcohol intake frequency: holidays/special occasions only Cardiovascular Hx: HTN, CHF and Cardiomyopathy Lung Disease HX: Asthma, COPD and DVT/PE Endocrine Hx: Diabetes Blood Disorder Hx: Other GI Hx: Other Cancer HX: No Coding Level of Care Code Est Patient Level 1 Diagnoses Current use of anticoagulant therapy Z79.01 Assessment & Plan Assessment & Plan (1) Current use of anticoagulant therapy: Code(s): Z79.01 - terminal superintendent (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
== END 2025-07-15 08:44 | disposition home or self-care (01) ==
LOC: HO.ACS 08:11
PROVIDERS: PCP Internal Medicine; Visit Provider Internal Medicine Medical Oncology
DX: Z79.01 Long term (current) use of anticoagulants (principal)

== ENCOUNTER → 2025-07-15 08:11 | Outpatient (BNVA) | payer MEDICARE, OTHER, SELFPAY | PROVIDERS: PCP Internal Medicine; Visit Provider Internal Medicine Medical Oncology | DX: Z79.01 Long term (current) use of anticoagulants (principal) | CPT/HCPCS: 85610; 99211 ==

== ENCOUNTER 2025-07-19 13:01 | Outpatient (AMB) | payer MEDICARE, OTHER, SELFPAY ==
--- NOTE | 2025-07-19 13:19 | MHC.OFFVISCO ---
Intake Intake Visit Reasons: Anticoagulation Allergies seafood Allergy (Severe, Verified 07/19/25 13:07) Angioedema, SOB nicotine Allergy (Intermediate, Verified 07/19/25 13:07) Rash fish derived (FISH) Allergy (Unknown, Verified 07/19/25 13:07) ANGIOEDEMA tamsulosin (Flomax) Adverse Reaction (Intermediate, Verified 07/19/25 13:07) nightmares Medication List - Last Reconciled 07/19/25 by Yakelin Jenkins RN albuterol sulfate mg inhalation Q6H PRN albuterol sulfate 90 mcg/actuation inhalation amoxicillin-pot clavulanate 875-125 mg 1 tab PO BID azithromycin (Zithromax) 250 mg PO 3XW blood sugar diagnostic (FreeStyle Lite Strips) daily blood-glucose meter (FreeStyle [place] Lite kit) As directed cetirizine 10 mg PO DAILY PRN [custom heat molded multidensity innersoles wear 3 pairs of custom heat molded multidensity innersoles wear] diclofenac sodium 1% 2 grams topical QID docusate sodium (Stool Softener) 100 mg PO DAILY [extra depth orthopedic shoes with 3 pairs of custom heat molded multidensity innersoles wear] fluticasone propionate 50 mcg/actuation 1 spray intranasal DAILY xikehwifobb-argjnktcr-lwazvvct 100-62.5-25 mcg (Trelegy Ellipta) 1 ea inhalation DAILY furosemide 40 mg PO QAM glimepiride 1 mg PO DAILY hydrocortisone 2.5% appl topical lancets (FreeStyle Lancets) test daily metformin 1,000 mg PO BID metoprolol succinate ER 50 mg PO DAILY omeprazole 40 mg PO DAILY polyethylene glycol 3350 (Miralax) 17 grams PO DAILY prednisone mg PO saw palmetto 450 mg PO BID solifenacin 10 mg PO DAILY triamcinolone acetonide 0.1% 1 appl topical BID-TID vitamins A,C,S-akzy-rhqgjp 2,148 mcg-113 mg-45 mg-17.4mg (PreserVision AREDS) 1 tab PO BID warfarin 7.5 mg See Protocol PO DAILY MDD 1.5 tablets daily Nursing Note INR: 2.2 in therapeutic range Medications and supplements reviewed- Prednisone 60mg bladiimr on 50mg now plus augmentin Pt starting to feel better, reports swollen lump right side of neck that he noticed yesterday - enc to discuss with MD Denies any signs and symptoms of bleeding or bruising or clotting. Bleeding, bruising, clotting discussed Nutritional guidance given - eat cooked greens Dose: resume ususal dose for next 3 days due to delayed onset of antbx 11.25mg mwf/ 7.5mg x 4 days F/U INR: 07/22/25 Patient verbalizes understanding of instructions given Anti-Coag Initial Assessment Social Hx Patient Tobacco Use Status: Former Tobacco user Tobacco use type: Cigarette alcohol intake: current Alcohol intake frequency: holidays/special occasions only Cardiovascular Hx: HTN, CHF and Cardiomyopathy Lung Disease HX: Asthma, COPD and DVT/PE Endocrine Hx: Diabetes Blood Disorder Hx: Other GI Hx: Other Cancer HX: No Coding Level of Care Code Est Patient Level 1 Diagnoses Current use of anticoagulant therapy Z79.01 Results AMB INR Fingerstick AMB INR Fingerstick 2.2 Last Edit by Yakelin Jenkins RN on 07/19/25 13:21 Assessment & Plan Assessment & Plan (1) Current use of anticoagulant therapy: Code(s): Z79.01 - care home (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
--- OUTSIDE RECORDS SUMMARY | 2025-07-19 16:54 | XMS_ITS | Encounter Summary ---
Author Organization [facility] Address [address] [place] [address] Care Team Providers Care Pole Framer Machine Name Role Phone Physician, Pcp Unknown Primary Care Provider Kaia vailable Encounter Details Date Type Department Care Team (Late st Contact Info) Description 06/10/2025 Lab Requisition [facility] - Main Lab [address] [facility] [place] [address] Jimmy Allen MD [address] [facility] [address] [place] [phone] Gross hematuria Social History Tobacco Use Types [...] AM EDT) Final Diagnosis A. Urine, Voided, [id number]: Negative for high grade urothelial carcinoma. Results of UroVysion fluorescence in situ hybridization (FISH) testing: CEP3: Normal CEP7: Normal CEP17: Normal LSI 9p21: Normal Interpretation: Normal profile Controls stained appropriately. Note: The results are intended as a screening device and should be interpreted in association with other clinical and pathological findings. 06/17/2025 12:12 PM EST [facility] ([facility]) HOSPITAL LAB at 1212 EST Specimen A Adequacy Satisfactory for evaluation 06/17/2025 12:12 PM [facility] Clinical Information Gross hematuria R31.0 Urine Cytology/FISH (now) 06/17/2025 12:12 PM [facility] Gross Description A. Urine, Voided, [id number]: Received one ThinPrep slide for cytology and one ThinPrep slide for UroVysion FISH 06/17/2025 12:12 PM [facility] Disclaimer Unless otherwise specified, all tissue is 10% NB formalin fixed and paraffin embedded. Technical pathology services provided by [facility] [address] [facility] [address] [place] [address] (CLIA #[id number]/Iliana Hobson MD, Crystallizer Operator) 06/17/2025 12:12 PM [facility] Urine Urine specimen from urethra / Unknown 06/02/2025 06/10/2025 10:45 AM EST us Jimmy Allen MD LAB CYTOLOGY ORDERABLES Final R esult [facility] [address] [place] [address], documented in this encounter Visit Diagnoses Diagnosis Gross hematuria documented in this encounter Care Teams Pole Framer Machine Relationship Specialty Start Date End Date Physician, Pcp Unknown PCP - General 06/10/25 documented as of this encounter
--- OUTSIDE RECORDS SUMMARY | 2025-07-19 16:54 | XMS_ITS | Clinical Summary ---
Author Organization 299 [facility] Address [address] [place] [address] Phone Care Team Providers Care Rfid Analyst Name Role Phone Physician, Pcp Unknown Primary Care Provider Kaia vailable Encounters Date Type Department Care Team Description 06/10/2025 Lab Requisition [facility] - Main Lab 299 [facility] [place] [address] Jimmy Allen MD Gross hematuria [...] AM EDT) Final Diagnosis A. Urine, Voided, [id number]: Negative for high grade urothelial carcinoma. Results of UroVysion fluorescence in situ hybridization (FISH) testing: CEP3: Normal CEP7: Normal CEP17: Normal LSI 9p21: Normal Interpretation: Normal profile Controls stained appropriately. Note: The results are intended as a screening device and should be interpreted in association with other clinical and pathological findings. 06/17/2025 12:12 PM EST [facility] at 1212 EST Specimen A Adequacy Satisfactory for evaluation 06/17/2025 12:[address] [facility] Clinical Information Gross hematuria R31.0 Urine Cytology/FISH (now) 06/17/2025 12:[address] [facility] Gross Description A. Urine, Voided, [id number]: Received one ThinPrep slide for cytology and one ThinPrep slide for UroVysion FISH 06/17/2025 12:12 PM [facility] Disclaimer Unless otherwise specified, all tissue is 10% NB formalin fixed and paraffin embedded. Technical pathology services provided by [facility] at [address] [facility] [address], [place] [address] (CLIA #[id number]/Iliana Hobson MD, Assistant Broker) 06/17/2025 12:12 PM [facility] Urine Urine specimen from urethra / Unknown 06/02/2025 06/10/2025 10:45 AM EST us Jimmy Allen MD LAB CYTOLOGY ORDERABLES Final R esult [facility] [address] [place] [address], from Last 3 Months Insurance MEDICARE [facility] Care Teams Rfid Analyst Relationship Specialty Start Date End Date Physician, Pcp Unknown PCP - General 06/10/25
--- OUTSIDE RECORDS SUMMARY | 2025-07-19 16:54 | XMS_ITS | Clinical Summary ---
Author Organization [facility] Address [address] [place] [address] Phone Care Team Providers Care Tmd Teacher Name Role Phone Jonathan Campoverde MD Primary Care Provider [phone] Allergies Active Allergy Reactions Criticality Noted Date [...] Take 1 capsule by mouth every morning. 5 Active warfarin (COUMADIN) 7.5 MG tablet Take [...] ENHANCE SUPPLEMENT MEDICARE PART A & B [facility] MEDICARE ENHANCE SUPPLEMENT [facility] Address: [address] SATHISH [place] [id number] MEDICARE PART A & B [facility] MEDICARE ENHANCE SUPPLEMENT MEDICARE PART A & B [facility] MEDICARE ENHANCE SUPPLEMENT [facility] Address: [address] [place] [id number] MEDICARE PART A & B [facility] MEDICARE ENHANCE SUPPLEMENT [facility] Address: [facility] [id number] [place] [id number] MEDICARE PART A & B [facility] MEDICARE ENHANCE SUPPLEMENT Care Teams Tmd Teacher Relationship Specialty Start Date End Date Jonathan Campoverde MD [address] [place] [address] [place] [address] PCP - General Internal Medicine 06/03/24 Additional Source Comments The information contained in this document represents components of the legal health record. It is not the complete legal health record.[facility]
[2025-07-20 11:31] LABS: Prothrombin Time Whole Bld POC 26.8 sec (11.1-13.5); ~PT, ~INR - Anti Coag Clinic 2.2 (0.9-1.1)
== END 2025-07-19 13:36 | disposition home or self-care (01) ==
LOC: HO.ACS 13:01
PROVIDERS: PCP Internal Medicine; Visit Provider Internal Medicine Medical Oncology
DX: Z79.01 Long term (current) use of anticoagulants (principal)

== ENCOUNTER → 2025-07-19 13:01 | Outpatient (BNVA) | payer MEDICARE, OTHER, SELFPAY | PROVIDERS: PCP Internal Medicine; Visit Provider Internal Medicine Medical Oncology | DX: I26.99 Other pulmonary embolism without acute cor pulmonale (principal); Z51.81 Encounter for therapeutic drug level monitoring; Z79.01 Long term (current) use of anticoagulants | CPT/HCPCS: 85610; 99211 ==

== ENCOUNTER 2025-07-22 07:59 | Outpatient (AMB) | payer MEDICARE, OTHER, SELFPAY ==
--- OUTSIDE RECORDS SUMMARY | 2025-07-22 08:03 | XMS_ITS | Encounter Summary ---
Author Organization [facility] Address [address] [place] [address] Care Team Providers Care Wire Drawing Setter Name Role Phone Physician, Pcp Unknown Primary Care Provider Kaia vailable Encounter Details Date Type Department Care Team (Late st Contact Info) Description 06/10/2025 Lab Requisition [facility] - Main Lab 299 [facility] [place] [address] Jimmy Allen MD [address] [facility] [address] [place] [phone] Gross hematuria Social History Tobacco Use Types [...] AM EDT) Final Diagnosis A. Urine, Voided, [id number]: Negative for high grade urothelial carcinoma. Results of UroVysion fluorescence in situ hybridization (FISH) testing: CEP3: Normal CEP7: Normal CEP17: Normal LSI 9p21: Normal Interpretation: Normal profile Controls stained appropriately. Note: The results are intended as a screening device and should be interpreted in association with other clinical and pathological findings. 06/17/2025 12:12 PM EST [facility]) HOSPITAL LAB at 1212 EST Specimen A Adequacy Satisfactory for evaluation 06/17/2025 12:12 PM [facility] Clinical Information Gross hematuria R31.0 Urine Cytology/FISH (now) 06/17/2025 12:12 PM [facility] Gross Description A. Urine, Voided, [id number]: Received one ThinPrep slide for cytology and one ThinPrep slide for UroVysion FISH 06/17/2025 12:12 PM [facility] Disclaimer Unless otherwise specified, all tissue is 10% NB formalin fixed and paraffin embedded. Technical pathology services provided by [facility] [address] [facility] [address] [place] [address] (CLIA #[id number]/Iliana Hobson MD, Workgroup Leader) 06/17/2025 12:12 PM [facility] Urine Urine specimen from urethra / Unknown 06/02/2025 06/10/2025 10:45 AM EST us Jimmy Allen MD LAB CYTOLOGY ORDERABLES Final R esult [facility] [address] [place] [address], documented in this encounter Visit Diagnoses Diagnosis Gross hematuria documented in this encounter Care Teams Wire Drawing Setter Relationship Specialty Start Date End Date Physician, Pcp Unknown PCP - General 06/10/25 documented as of this encounter
--- OUTSIDE RECORDS SUMMARY | 2025-07-22 08:03 | XMS_ITS | Clinical Summary ---
Author Organization [facility] Address [address] [place] [address] Phone Care Team Providers Care Mailer Apprentice Name Role Phone Jonathan Campoverde MD Primary Care Provider [phone] Allergies Active Allergy Reactions Criticality Noted Date [...] ENHANCE SUPPLEMENT MEDICARE PART A & B [facility] MEDICARE ENHANCE SUPPLEMENT MEDICARE PART A & B [facility] MEDICARE ENHANCE SUPPLEMENT MEDICARE PART A & B [facility] MEDICARE ENHANCE SUPPLEMENT MEDICARE PART A & B [facility] MEDICARE ENHANCE SUPPLEMENT MEDICARE PART A & B [facility] MEDICARE ENHANCE SUPPLEMENT Care Teams Mailer Apprentice Relationship Specialty Start Date End Date Jonathan Campoverde MD [address] [place] [address] [place] [address] PCP - General Internal Medicine 06/03/24 Additional Source Comments The information contained in this document represents components of the legal health record. It is not the complete legal health record.[facility]
--- OUTSIDE RECORDS SUMMARY | 2025-07-22 08:03 | XMS_ITS | Clinical Summary ---
Author Organization 299 [facility] Address [address] [place] [address] Phone Care Team Providers Care Garment Patternmaker Name Role Phone Physician, Pcp Unknown Primary Care Provider Kaia vailable Encounters Date Type Department Care Team Description 06/10/2025 Lab Requisition [facility] - Main Lab [address] [facility] [place] [address] Jimmy Allen MD Gross hematuria [...] AM EDT) Final Diagnosis A. Urine, Voided, [id number]: Negative for high grade urothelial carcinoma. Results of UroVysion fluorescence in situ hybridization (FISH) testing: CEP3: Normal CEP7: Normal CEP17: Normal LSI 9p21: Normal Interpretation: Normal profile Controls stained appropriately. Note: The results are intended as a screening device and should be interpreted in association with other clinical and pathological findings. 06/17/2025 12:12 PM EST [facility]) [facility] at 1212 EST Specimen A Adequacy Satisfactory for evaluation 06/17/2025 12:12 PM EST [facility] Clinical Information Gross hematuria R31.0 Urine Cytology/FISH (now) 06/17/2025 12:12 PM EST [facility] Gross Description A. Urine, Voided, [id number]: Received one ThinPrep slide for cytology and one ThinPrep slide for UroVysion FISH 06/17/2025 12:12 PM [facility] Disclaimer Unless otherwise specified, all tissue is 10% NB formalin fixed and paraffin embedded. Technical pathology services provided by [facility] at [address] [facility] [address], [place] [address] (CLIA #[id number]/Iliana Hobson MD, Fur Polisher) 06/17/2025 12:12 PM [facility] Urine Urine specimen from urethra / Unknown 06/02/2025 06/10/2025 10:45 AM EST us Jimmy Allen MD LAB CYTOLOGY ORDERABLES Final R esult [facility] [address] [place] [address], from Last 3 Months Insurance MEDICARE [facility] Care Teams Garment Patternmaker Relationship Specialty Start Date End Date Physician, Pcp Unknown PCP - General 06/10/25
[2025-07-22 08:24] LABS: Prothrombin Time Whole Bld POC 23.0 sec (11.1-13.5); ~PT, ~INR - Anti Coag Clinic 1.9 (0.9-1.1)
--- NOTE | 2025-07-22 08:29 | MHC.OFFVISCO ---
Intake Intake Visit Reasons: Anticoagulation Allergies seafood Allergy (Severe, Verified 07/22/25 08:18) Angioedema, SOB nicotine Allergy (Intermediate, Verified 07/22/25 08:18) Rash fish derived (FISH) Allergy (Unknown, Verified 07/22/25 08:18) ANGIOEDEMA tamsulosin (Flomax) Adverse Reaction (Intermediate, Verified 07/22/25 08:18) nightmares Medication List - Last Reconciled 07/22/25 by Marie Shaver RN albuterol sulfate mg inhalation Q6H PRN albuterol sulfate 90 mcg/actuation inhalation amoxicillin-pot clavulanate 875-125 mg 1 tab PO BID azithromycin (Zithromax) 250 mg PO 3XW blood sugar diagnostic (FreeStyle Lite Strips) daily blood-glucose meter (FreeStyle [place] Lite kit) As directed cetirizine 10 mg PO DAILY PRN [custom heat molded multidensity innersoles wear 3 pairs of custom heat molded multidensity innersoles wear] diclofenac sodium 1% 2 grams topical QID docusate sodium (Stool Softener) 100 mg PO DAILY [extra depth orthopedic shoes with 3 pairs of custom heat molded multidensity innersoles wear] fluticasone propionate 50 mcg/actuation 1 spray intranasal DAILY xvhhnzaokua-wsqjaullk-sqbwjosg 100-62.5-25 mcg (Trelegy Ellipta) 1 ea inhalation DAILY furosemide 40 mg PO QAM glimepiride 1 mg PO DAILY hydrocortisone 2.5% appl topical lancets (FreeStyle Lancets) test daily metformin 1,000 mg PO BID metoprolol succinate ER 50 mg PO DAILY omeprazole 40 mg PO DAILY polyethylene glycol 3350 (Miralax) 17 grams PO DAILY prednisone mg PO saw palmetto 450 mg PO BID solifenacin 10 mg PO DAILY triamcinolone acetonide 0.1% 1 appl topical BID-TID vitamins A,C,Q-xqhu-eatdpr 2,148 mcg-113 mg-45 mg-17.4mg (PreserVision AREDS) 1 tab PO BID warfarin 7.5 mg See Protocol PO DAILY MDD 1.5 tablets daily Nursing Note INR: 1.9 out of therapeutic range of 2-3 Medications and supplements reviewed. Pt remains on Augmentin and prednisone for URI. Patient status: still ill with URI with symptoms of cough and congestion. Medications or supplements: no changes Diet: appetite is good Denies any signs and symptoms of bleeding or clotting or unusual bruising Bleeding, bruising, clotting discussed Nutritional guidance given: to avoid greens today Dose: keep same dose of 7.5mg X 4 days and 11.25mg X 3 days (M/W/F) F/U INR Date: 5 days?? Patient verbalizing understanding of instructions given. 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
== END 2025-07-22 08:35 | disposition home or self-care (01) ==
LOC: HO.ACS 07:59
PROVIDERS: PCP Internal Medicine; Visit Provider Internal Medicine Medical Oncology
DX: Z79.01 Long term (current) use of anticoagulants (principal)

== ENCOUNTER → 2025-07-22 07:59 | Outpatient (BNVA) | payer MEDICARE, OTHER, SELFPAY | PROVIDERS: PCP Internal Medicine; Visit Provider Internal Medicine Medical Oncology | DX: I26.99 Other pulmonary embolism without acute cor pulmonale (principal); Z51.81 Encounter for therapeutic drug level monitoring; Z79.01 Long term (current) use of anticoagulants | CPT/HCPCS: 85610; 99211 ==

== ENCOUNTER 2025-07-27 08:12 | Outpatient (AMB) | payer MEDICARE, OTHER, SELFPAY ==
--- OUTSIDE RECORDS SUMMARY | 2025-07-22 23:59 | XMS_ITS | Continuity of Care Document ---
Author Organization [facility] Address [address] [address]- Care Team Providers Care Park Keeper Name Role Phone Stan THOMPSON, Tito Fraser Primary Care Physician Encounter [facility] [place] Date(s): 06/22/25 - 07/22/25 [facility] [address] [id number] Encounter Type: Triage Allergies, Adverse Reactions, Alerts Substance Criticality Severity Reaction Reaction Severity Status Flomax insomnia Active Nicotine Patch rash,itching Ac tive Magnevist Low criticality Mild patient felt sick/weak after injection Resolved Fish SOB, swelling Active Immunizations Given and Recorded Vaccine Date Status Refusal Reason RSV vaccine preF3, recombinant 10/27/23 Recorded pneumococcal 20-valent conjugate vaccine 08/06/22 Recorded [id number] 12y+ bivalent booster vax 08/06/22 Recorded SARS-CoV-2 mRNA ([id number]) vax 11/29/21 Recorded SARS-CoV-2 (COVID-19) mRNA BNT-162b2 [...] Recorded pneumococcal 23-valent vaccine 02/07/10 Given Medications Alcohol Wipes See Instructions, # 60 Unknown, Refills 2, Tot. Refills 2, Maintenance, clean skin each time beforepricking to check blood sugar levels Code: E11.9 Take Blood Sugar Once A day, 10/23/21 3:24:00 PM EDT, Supply, 180, cm, 10/22/21 6:34:00 EDT, Height, 116, kg, 10/13/21 20:36:00 EST, Dry Weight Start Date: 10/23/21 Status: Ordered Medication Dispense Status: Completed Quantity: 60.0 Unit: Unknown Total Allowed Fills: 3 Fills Dispensed: 0 aspirin 81 mg oral delayed release tablet 81 mg, 1, tablet, By Mouth, Daily, # 30 tablet, Refills 0, Maintenance, 04/12/24 2:54:00 PM EDT, Partial fill upon patient request if the prescription is for a schedule II opioid drug. Start Date: 04/12/24 Status: Ordered Medication Dispense Status: Completed Quantity: 30.0 Unit: tablet Total Allowed Fills: 1 Fills Dispensed: 0 Augmentin 875 mg-125 mg oral tablet 1 tablet, By Mouth, Every 12 hours, for 10 days, # 20 tablet, 0 Refills, Acute 07/26/25 9:30:00 AM EST, 07/16/25 9:30:00 AM EST, Tablet, [facility]/pharmacy #[id number], Partial fill upon patient request, 179, cm, 07/16/25 9:00:00 EST, Height, 111, kg, 04/14/24 7:24:00 EDT, Dry Weight Start Date: 07/16/25 Stop Date: 07/26/25 Status: Ordered Medication Dispense Status: Completed Quantity: 20.0 Unit: tablet Total Allowed Fills: 1 Fills Dispensed: 0 Indications: Chronic obstructive pulmonary disease with (acute) exacerbation; Acute upper respiratory infection, unspecified; azithromycin 250 mg oral tablet See Instructions, TAKE 1 TABLET BY MOUTH FRIDAY, FRIDAY AND FRIDAY. PLEASE START AFTER COMPLETING 5 DAY COURSE., # 36 tablet, 0 Refills, Maintenance, 05/30/25 10:07:00 AM EDT, [facility] STORE [id number], 179, cm, 04/07/25 15:04:00 EDT, Height, 111, kg, 04/14/24 7:24:00 EDT, Dry Weight Start Date: 05/30/25 Status: Ordered Medication Dispense Status: Completed Quantity: 36.0 Unit: tablet Total Allowed Fills: 1 Fills Dispensed: 0 cetirizine 10 mg oral tablet 1 tablet, By Mouth, Daily, PRN NEEDED FOR ALLERGIES, # 90 tablet, 3 Refills, Maintenance, 03/01/25 12:02:00 PM EDT, [id number], 179, cm, 02/17/25 8:07:00 EDT, Height, 111, kg, 04/14/24 7:24:00EDT, Dry Weight Start Date: 03/01/25 Status: Ordered Medication Dispense Status: Completed Quantity: 90.0 Unit: tablet Total Allowed Fills: 1 Fills Dispensed: 0 Colace sodium 100 mg oral capsule 100 mg, 1, capsule, By Mouth, Daily, PRN, # 90 capsule, Refills 6, Tot. Refills 6, Maintenance, forconstipation, 11/30/24 9:06:00 AM EDT, Route to Pharmacy Electronically, [facility]/pharmacy #[id number], Partialfill upon patient request if the prescription is for a schedule II opioid drug., 179, cm, 11/30/24 8:56:00 EDT, Height, 111, kg, 04/14/24 7:24:00 EDT, Dry Weight Start Date: 11/30/24 Status: Ordered Medication Dispense Status: Completed Quantity: 90.0 Unit: capsule Total Allowed Fills: 7 Fills Dispensed: 0 Indications: Constipation, unspecified; dicyclomine 10 mg oral capsule 1 capsule = 10 mg, By Mouth, 4 times a day, PRN abdominal cramping, # 40 capsule, 1 Refills, Maintenance, 06/01/24 9:42:00 AM EDT, Capsule, [facility]/pharmacy #[id number], Partial fill upon patient request if the prescription is for a schedule II opioid drug., 179, cm, 06/01/24 9:28:00 EDT, Height, 111, kg, 04/14/24 7:24:00 EDT, Dry Weight Start Date: 06/01/24 Status: Ordered Medication Dispense Status: Completed Quantity: 40.0 Unit: capsule Total Allowed Fills: 2 Fills Dispensed: 0 Indications: Constipation, unspecified; fluticasone 50 mcg/inh nasal spray 0 Refills, Maintenance, 01/23/21 7:46:00 AM EDT, Partial fill upon patient request if the prescription is for a schedule II opioid drug. Start Date: 01/23/21 Status: Ordered Medication Dispense Status: Completed Total Allowed Fills: 1 Fills Dispensed: 0 fluticasone/umeclidinium/vilanterol 200 mcg-62.5 mcg-25 mcg/inh inhalation powder 1 puffs, Inhalation, Daily, at the same time every day, # 1 each, 6 Refills, Maintenance, 06/14/25 10:04:00 AM EST, Powder, [facility], Partial fill upon patient request if the prescription is for a schedule II opioid drug., 1 puffs Inhalation Daily,Instr:at the same time every day, 179, cm, 06/14/25 8:20:00 EST, Height, 111, kg, 04/14/24 7:24:00 EDT, Dry Weight Start Date: 06/14/25 Status: Ordered Medication Dispense Status: Completed Quantity: 1.0 Unit: each Total Allowed Fills: 7 Fills Dispensed: 0 Freestyle Flash Glucose Meter See Instructions, # 1 each, Refills 5, Tot. Refills 5, Maintenance, use as directed for Type 2 Diabetes Mellitus Code: E11.9 Take Blood Sugar Once A day, 10/23/21 3:24:00 PM EDT, Supply, 180, cm, 10/22/21 6:34:00 EDT, Height, 116, kg, 10/13/21 20:36:00 EST, Dry Weight Start Date: 10/23/21 Stop Date: 04/21/22 Status: Ordered Medication Dispense Status: Completed Quantity: 1.0 Unit: each Total Allowed Fills: 6 Fills Dispensed: 0 Freestyle Lite Lancets See Instructions, # 200 each, Refills 5, Tot. Refills 5, Maintenance, use as directed for Type 2 Diabetes Mellitus Code: E11.9 Take Blood Sugar Once A day, 10/23/21 3:25:00 PM EDT, Supply, 180, cm, 10/22/21 6:34:00 EDT, Height, 116, kg, 10/13/21 20:36:00 EST, Dry Weight Start Date: 10/23/21 Stop Date: 04/21/22 Status: Ordered Medication Dispense Status: Completed Quantity: 200.0 Unit: each Total Allowed Fills: 6 Fills Dispensed: 0 Freestyle Lite Monitor See Instructions, # 1 Unknown, Maintenance, Code: E11.9 Take Blood Sugar Once A day May be substituted, 10/24/21 8:56:00 AM EDT, Supply, 180, cm, 10/22/21 6:34:00 EDT, Height, 116, kg, 10/13/21 20:36:00 EST, Dry Weight Start Date: 10/24/21 Status: Ordered Medication Dispense Status: Completed Quantity: 1.0 Unit: Unknown Total Allowed Fills: 1 Fills Dispensed: 0 Freestyle Lite Test Strips See Instructions, # 200 each, Maintenance, use as directed for Type 2 Diabetes Mellitus Code: E11.9Take Blood Sugar Once A day, 10/23/21 3:25:00 PM EDT, Supply, 180, cm, 10/22/21 6:34:00 EDT, Height,116, kg, 10/13/21 20:36:00 EST, Dry Weight Start Date: 10/23/21 Stop Date: 11/22/21 Status: Ordered Medication Dispense Status: Completed Quantity: 200.0 Unit: each Total Allowed Fills: 1 Fills Dispensed: 0 furosemide 40 mg oral tablet TAKE 1 TABLET BY MOUTH EVERY DAY IN THE MORNING Start Date: 07/17/20 Status: Ordered Medication Dispense Status: Completed Total Allowed Fills: 1 Fills Dispensed: 0 glimepiride 1 mg oral tablet See Instructions, Take in AM and PM, # 60 tablet, 0 Refills, Maintenance, 10/22/21 10:29:00 AM EDT, [facility], Partial fill upon patient request if the prescription is for a schedule IIopioid drug., 180, cm, 10/22/21 6:34:00 EDT, Height, 116, kg, 10/13/21 20:36:00 EST, Dry Weight Start Date: 10/22/21 Status: Ordered Medication Dispense Status: Completed Quantity: 60.0 Unit: tablet Total Allowed Fills: 1 Fills Dispensed: 0 Home Blood Pressure Monitor See Instructions, # 1 each, Maintenance, ICD l10 and I50.9, 03/18/19 10:44:42 AM EDT, Compound Start Date: 03/18/19 Status: Ordered Medication Dispense Status: Completed Quantity: 1.0 Unit: each Total Allowed Fills: 1 Fills Dispensed: 0 metFORMIN 1000 mg oral tablet 1 tablet = 1,000 mg, By Mouth, 2 times a day, # 60 tablet, 0 Refills, Maintenance, 10/23/21 3:23:00 PM EDT, Tablet, [facility]/pharmacy #[id number], Partial fill upon patient request if the prescription is for a schedule II opioid drug., 180, cm, 10/22/21 6:34:00 EDT, Height, 116, kg, 10/13/21 20:36:00 EST, Dry Weight Start Date: 10/23/21 Status: Ordered Medication Dispense Status: Completed Quantity: 60.0 Unit: tablet Total Allowed Fills: 1 Fills Dispensed: 0 Metoprolol Succinate ER 50 mg oral tablet, extended release 1, tablet, By Mouth, Daily, # 90 tablet, Refills 3, Maintenance, 08/24/24 7:32:00 AM EST, Route to Pharmacy Electronically, [id number], 179, cm, 06/10/24 8:17:00 EST, Height, 111, kg, 04/14/24 7:24:00 EDT, Dry Weight Start Date: 08/24/24 Status: Ordered Medication Dispense Status: Completed Quantity: 90.0 Unit: tablet Total Allowed Fills: 1 Fills Dispensed: 0 Mucinex DM Max Strength oral tablet, extended release 1 tablet, By Mouth, 2 times a day, PRN Cough and Congestion, # 14 tablet, 0 Refills, Maintenance, 07/16/25 9:31:00 AM EST, ER Tablet, [facility]/pharmacy #[id number], Partial fill upon patient request if the prescription is for a schedule II opioid drug., 1 tablet By Mouth 2 times a day,PRN:Cough and Congestion, 179, cm, 07/16/25 9:00:00 EST, Height, 111, kg, 04/14/24 7:24:00 EDT, Dry Weight Start Date: 07/16/25 Status: Ordered Medication Dispense Status: Completed Quantity: 14.0 Unit: tablet Total Allowed Fills: 1 Fills Dispensed: 0 Indications: Chronic obstructive pulmonary disease with (acute) exacerbation; Acute upper respiratory infection, unspecified; Nebulizer supplies Nebulizer supplies, See Instructions, # 1 each, Refills 11, Tot. Refills 11, Maintenance, NebulizerSupplies A7003 Neb Disp Set A7014 Neb non-Disp Filter A7005 Neb Non-Disp set A7015 Aerosol Mask A7013 Neb Disp Filter Dx: J44.9 Length of need lifetime 99 month, 11/08/19 12:52:00 PM EDT, Supply Start Date: 11/08/19 Status: Ordered Medication Dispense Status: Completed Quantity: 1.0 Unit: each Total Allowed Fills: 12 Fills Dispensed: 0 Nebulizer/Compressor See Instructions, # 1 each, Refills 11, Tot. Refills 11, Maintenance, Nebulizer Machine A7003 Neb Disp Set A7014 Neb non-Disp Filter A7005 Neb Non-Disp set A7015 Aerosol Mask A7013 Neb Disp Filter length of need lifetime 99 months for home use Dx, 06/14/25 11:45:00 AM EST, Supply Start Date: 06/14/25 Status: Ordered Medication Dispense Status: Completed Quantity: 1.0 Unit: each Total Allowed Fills: 12 Fills Dispensed: 0 Nebulizer/Compressor See Instructions, # 1 each, Refills 11, Tot. Refills 11, Maintenance, E0570 Nebulizer A7003 Neb Disp Set A7014 Neb non-Disp Filter A7005 Neb Non-Disp set A7015 Aerosol Mask A7013 Neb Disp Filter length of need lifetime 99 months for home use, 12/22/23 3:08:00 PM EDT, Supply Start Date: 12/22/23 Status: Ordered Medication Dispense Status: Completed Quantity: 1.0 Unit: each Total Allowed Fills: 12 Fills Dispensed: 0 omeprazole 20 mg oral enteric coated capsule 1 capsule = 20 mg, By Mouth, Daily, # 90 capsule, 6 Refills, Maintenance, 11/30/24 9:07:00 AM EDT, EC Capsule, [id number], Partial fill upon patient request if the prescription is for a schedule II opioid drug., 179, cm, 11/30/24 8:56:00 EDT, Height, 111, kg, 04/14/24 7:24:00 EDT, Dry Weight Start Date: 11/30/24 Status: Ordered Medication Dispense Status: Completed Quantity: 90.0 Unit: capsule Total Allowed Fills: 7 Fills Dispensed: 0 Indications: Gastro-esophageal reflux disease without esophagitis; predniSONE 10 mg oral tablet See Instructions, 6 tablet By Mouth Daily x3 days 5 tablet By Mouth Daily x3 days 4 tablet By MouthDaily x3 days 3 tablet By Mouth Daily x3 days 2 tablet By Mouth Daily x3 days 1 tablet By Mouth Daily x3 days with food, # 63 tablet, 0 Refills, Maintenance, 07/16/25 9:30:00 AM EST, Tablet, [id number], Partial fill upon patient request if the prescription is for a schedule II opioid drug.,179, cm, 07/16/25 9:00:00 EST, Height, 111, kg, 04/14/24 7:24:00 EDT, Dry Weight Start Date: 07/16/25 Status: Ordered Medication Dispense Status: Completed Quantity: 63.0 Unit: tablet Total Allowed Fills: 1 Fills Dispensed: 0 Indications: Chronic obstructive pulmonary disease with (acute) exacerbation; Acute upper respiratory infection, unspecified; predniSONE 20 mg oral tablet See Instructions, Take 2 tablets by mouth daily x 5 days, then 1.5 tablets by mouth daily x 2 days,then 1 tablet by mouth daily x 2 days, then 0.5 tablet by mouth daily x 2 days, then stop, # 16 tablet, 0 Refills, Maintenance, 07/07/25 8:39:00 AM EST, [id number], Partial fill upon patient request if the prescription is for a schedule II opioid drug., 179, cm, 07/07/25 8:13:00 EST, Height,111, kg, 04/14/24 7:24:00 EDT, Dry Weight Start Date: 07/07/25 Status: Ordered Medication Dispense Status: Completed Quantity: 16.0 Unit: tablet Total Allowed Fills: 1 Fills Dispensed: 0 PreserVision AREDS oral capsule By Mouth, 2 times a day, 0 Refills, Maintenance, 11/17/23 3:06:00 AM EDT, Partial fill upon patient request if the prescription is for a schedule II opioid drug. Start Date: 11/17/23 Status: Ordered Medication Dispense Status: Completed Total Allowed Fills: 1 Fills Dispensed: 0 solifenacin 10 mg oral tablet 1 tablet = 10 mg, By Mouth, Daily, # 90 tablet, 0 Refills, Maintenance, 12/11/23 10:39:00 AM EDT, Tablet, Partial fill upon patient request if the prescription is for a schedule II opioid drug. Start Date: 12/11/23 Status: Ordered Medication Dispense Status: Completed Quantity: 90.0 Unit: tablet Total Allowed Fills: 1 Fills Dispensed: 0 Suprep Bowel Prep Kit oral liquid See Instructions, Bottle 1: 5pm the night before the procedure Bottle 2: 6 hours before the time ofthe procedure each bottle followed by two 16-ounce cups of water, # 1 kit, 0 Refills, Maintenance, 03/31/25 2:48:00 PM EDT, [facility]/pharmacy #[id number], Partial fill upon patient request if the prescription isfor a schedule II opioid drug., Bottle 1: 5pm the night before the procedure; Bottle 2: 6 hours before the time of the procedure; each bottle followed by two 16-ounce cups of water, 179, cm, :17:00 EDT, Height, 111, kg, 04/14/24 7:24:00 EDT, Dry Weight Start Date: 03/31/25 Status: Ordered Medication Dispense Status: Completed Quantity: 1.0 Unit: kit Total Allowed Fills: 1 Fills Dispensed: 0 Suprep Bowel Prep Kit oral liquid 177 mL, By Mouth, Once, Take the first 6 oz bottle the evening before colonoscopy, and the second 6oz bottle the morning of colonoscopy., # 354 mL, 0 Refills, Soft Stop, 06/01/24 9:47:00 AM EDT, [id number], Partial fill upon patient request if the prescription is for a schedule II opioid drug., 177 mL By Mouth Once,Instr:Take the first 6 oz bottle the evening before colonoscopy, and the second 6 oz bottle the morning of colonoscopy., 179, cm, 06/01/24 9:28:00 EDT, Height, 111, kg, 04/14/24 7:24:00 EDT, Dry Weight Start Date: 06/01/24 Status: Ordered Medication Dispense Status: Completed Quantity: 354.0 Unit: mL Total Allowed Fills: 1 Fills Dispensed: 0 Indications: Encounter for screening for malignant neoplasm of colon; valsartan 40 mg oral tablet 1, tablet, By Mouth, 2 times a day, # 180 tablet, Refills 1, Maintenance, 06/14/24 7:26:00 AM EST, Route to Pharmacy Electronically, [id number], 179, cm, 06/10/24 8:17:00 EST, Height, 111, kg, 04/14/24 7:24:00 EDT, Dry Weight Start Date: 06/14/24 Status: Ordered Medication Dispense Status: Completed Quantity: 180.0 Unit: tablet Total Allowed Fills: 1 Fills Dispensed: 0 Ventolin HFA 108 mcg/inh inhalation aerosol with adapter See Instructions, INHALE 2 PUFFS EVERY 6 HOURS NEEDED WHEEZE/SHORTNESS OF BREATH, # 18 each, 11 Refills, Maintenance, 06/22/25 4:31:00 PM EST, [id number], 179, cm, 06/14/25 8:20:00 EST, Height, 111, kg, 04/14/24 7:24:00 EDT, Dry Weight Start Date: 06/22/25 Status: Ordered Medication Dispense Status: Completed Quantity: 18.0 Unit: each Total Allowed Fills: 1 Fills Dispensed: 0 Vitamin C = 1,000 mg, By Mouth, Daily, 0 Refills, Maintenance, 08/16/20 5:16:00 PM EST, Partial fill upon patient request if the prescription is for a schedule II opioid drug. Start Date: 08/16/20 Status: Ordered Medication Dispense Status: Completed Total Allowed Fills: 1 Fills Dispensed: 0 warfarin 7.5 mg oral tablet 1 tablet = 7.5 mg, By Mouth, Daily, # 30 tablet, 0 Refills, Maintenance, 10/22/21 10:11:00 AM EDT, Tablet, [facility], Partial fill upon patient request if the prescription is for a schedule II opioid drug., 180, cm, 10/22/21 6:34:00 EDT, Height, 116, kg, 10/13/21 20:36:00 EST, Dry Weight Start Date: 10/22/21 Status: Ordered Medication Dispense Status: Completed Quantity: 30.0 Unit: tablet Total Allowed Fills: 1 Fills Dispensed: 0 Zithromax Z-Anurag 250 mg oral tablet 1 pack/packet, By Mouth, Once, # 6 tablet, 0 Refills, Soft Stop, 07/03/25 11:15:00 AM EST, Tablet, [id number], Partial fill upon patient request if the prescription is for a schedule II opioid drug., 179, cm, 07/03/25 10:52:00 EST, Height, 111, kg, 04/14/24 7:24:00 EDT, Dry Weight Start Date: 07/03/25 Status: Ordered Medication Dispense Status: Completed Quantity: 6.0 Unit: tablet Total Allowed Fills: 1 Fills Dispensed: 0 Indications: Bronchitis, not specified as acute or chronic; Problem List Condition Confirmation Course Effective Dates Status Health St atus Informant COPD mixed type Confirmed Active Congestive heart failure Confirmed Active Constipation Confirmed Active Enlarged prostate Confirmed Active GERD (gastroesophageal reflux disease) Confirmed Active Nocturnal hypoxemia Confirmed Active Moderate COPD (chronic obstructive pulmonary disease) Confirmed Active Pulmonary nodules Confirmed Active Obese class I Confirmed Active JAYLON (obstructive sleep apnea) Confirmed Active Sleep apnea Confirmed Active Hypoxemia associated with sleep Confirmed Active History of tobacco use Confirmed Active Type 2 diabetes mellitus with peripheral angiopathy Confirmed Active Social History Social History Type Response Smoking Status Former smoker, quit more than 30 days ago entered on: 07/07/25 Sexual Orientation Self described orien tation: ; Straight or heterosexual Sex Sex Representation Male (finding) Patient Care team information Care Team Personnel Name: Gilda Atkinson RN Position: [facility] RN Member Role: Primary Care Nurse Name: Tito Pierce MD Position: Reference Physician Member Role: PCP Address: [address] [place] [address] Telecom: Name: Rina Stringer RN Position: [facility] RN Member Role: Primary Care Nurse Name: Natalya Yost RN Position: S RN Member Role: Primary Care Nurse Name: Emily Tapia RN Position: S RN Member Role: Primary Care Nurse Name: Estela Lugo RN Position: S RN Member Role: Primary Care Nurse Name: Matthew Cueto RN Position: S RN Member Role: Primary Care Nurse Name: Haley Irene RN Position: S RN Member Role: Primary Care Nurse Name: Kaley Feng RN Position: S RN Member Role: Primary Care Nurse Name: Natalya Davis RN Position: [facility] RN Member Role: Primary Care Nurse Name: Kaylene Reid RN Position: [facility] RN Member Role: Primary Care Nurse Name: Cedric Dodson RN Position: [facility] RN Member Role: Primary Care Nurse Name: Cory Zhou RN Position: [facility] RN Member Role: Primary Care Nurse Name: Deni Gramajo MD Position: [facility] Outreach Member Role: Lifetime Consulting Physician Address: [address] [facility] [address] Telecom: Name: Brenda Mackenzie RN Position: [facility] RN Member Role: Primary Care Nurse Name: Elsa Hawkins RN Position: [facility] RN Member Role: Primary Care Nurse Name: Malathi Borges RN Position: [facility] RN Member Role: Primary Care Nurse Name: Riley Urias MD Position: [facility] Renal MD Member Role: Lifetime Consulting Physician Address: [address] [facility] [address] Telecom: Name: Heide Carrero RN Position: [facility] RN Member Role: Primary Care Nurse Name: Janett Venegas RN Position: [facility] AMB Nurse Member Role: Primary Care Nurse Name: Jorgito Kim RN Position: [facility] RN Member Role: Primary Care Nurse Name: Alberta Doherty RN Position: [facility] RN Member Role: Primary Care Nurse Name: Caprice Hinds RN Position: [facility] RN Member Role: Primary Care Nurse Name: Gillian Uriostegui RN Position: [facility] Spanish Medical Interpreter Member Role: Primary Care Nurse Name: Heide Soriano RN Position: [facility] RN Member Role: Primary Care Nurse Name: Carie Geiger RN Position: [facility] RN Member Role: Primary Care Nurse Care Team Related Persons Name: DELFINA MUNOZ Name: ANMOL MUNOZ Insurance Providers Guarantor name: MATHIEU MUNOZ Health Plan Information #: 1 Payer: MEDICARE B Payer Identifier: ISAAC Member Number: [id number] Group Number: NA Subscriber Identifier: NA Relationship to Subscriber: self Coverage Type: NA Coverage Verification Date: NA Telecom: NA Address: Health Plan Information #: 2 Payer: JENNIFER CHAIDEZ Payer Identifier: NA Member Number: [id number] Group Number: [id number] Subscriber Identifier: NA Relationship to Subscriber: self Coverage Type: Medicare Other Coverage Verification Date: NA Telecom: ISAAC Address: NA
--- OUTSIDE RECORDS SUMMARY | 2025-07-23 23:59 | XMS_ITS | Continuity of Care Document ---
Author Organization [facility] Address [address] [place] [address]- Care Team Providers Care Striper Spray Gun Name Role Phone Stan THOMPSON, Tito Fraser Primary Care Physician [id number] Date(s): 07/16/25 - 07/23/25 [facility] [address] [place] [address]- Encounter Diagnosis COPD exacerbation(Discharge Diagnosis) - 07/16/25 Viral URI with cough(Discharge Diagnosis) - 07/16/25 Attending Physician: Chelsea Schmidt MD Referring Physician: Tito Pierce MD Encounter Type: Office Visit Allergies, Adverse Reactions, Alerts Substance Criticality Severity Reaction Reaction Severity Status Flomax insomnia Active Magnevist Low criticality Mild patient felt sick/weak after injection Resolved Fish SOB, swelling Active Nicotine Patch rash,itching Ac tive Immunizations Given and Recorded Vaccine Date Status Refusal Reason RSV vaccine preF3, recombinant 10/27/23 Recorded pneumococcal 20-valent conjugate vaccine 08/06/22 Recorded [id number] 12y+ bivalent booster vax 08/06/22 Recorded SARS-CoV-2 mRNA ([id number]) vax 11/29/21 Recorded SARS-CoV-2 (COVID-19) mRNA BNT-162b2 [...] AM EST, 07/16/25 9:30:00 AM EST, Tablet, [facility]/pharmacy #[id number], Partial fill upon patient request, 179, [...] 0 Refills, Maintenance, 05/30/25 10:07:00 AM EDT, [facility] STORE [id number], 179, cm, 04/07/25 15:04:00 EDT, Height, 111, kg, 04/14/24 7:24:00 EDT, Dry Weight Start Date: 05/30/25 Status: Ordered Medication Dispense Status: Completed Quantity: 36.0 Unit: tablet Total Allowed Fills: 1 Fills Dispensed: 0 cetirizine 10 mg oral tablet 1 tablet, By Mouth, Daily, PRN NEEDED FOR ALLERGIES, # 90 tablet, 3 Refills, Maintenance, 03/01/25 12:02:00 PM EDT, [facility] STORE [id number], 179, cm, 02/17/25 8:07:00 EDT, Height, 111, [...] AM EDT, Route to Pharmacy Electronically, [facility]/pharmacy #[id number], Partialfill upon patient request if the [...] Maintenance, 06/01/24 9:42:00 AM EDT, Capsule, [facility]/pharmacy #[id number], Partial fill upon patient request if [...] Refills, Maintenance, 06/14/25 10:04:00 AM EST, Powder, [facility], Partial fill upon patient request [...] 0 Refills, Maintenance, 10/22/21 10:29:00 AM EDT, [facility], Partial fill upon patient request if [...] Maintenance, 10/23/21 3:23:00 PM EDT, Tablet, [facility]/pharmacy #[id number], Partial fill upon patient request if [...] AM EST, Route to Pharmacy Electronically, [facility] STORE [id number], 179, cm, 06/10/24 8:17:00 EST, Height, 111, [...] Maintenance, 07/16/25 9:31:00 AM EST, ER Tablet, [facility][id number], Partial fill upon patient [...] Maintenance, 11/30/24 9:07:00 AM EDT, EC Capsule, [facility]/pharmacy #[id number], Partial fill upon patient request if [...] Refills, Maintenance, 07/16/25 9:30:00 AM EST, Tablet, [facility]/pharmacy #[id number], Partial fill upon patient request if [...] 0 Refills, Maintenance, 07/07/25 8:39:00 AM EST, [facility]/pharmacy #[id number], Partial fill upon patient request if [...] 0 Refills, Maintenance, 03/31/25 2:48:00 PM EDT, [id number], Partial fill upon patient [...] 7:26:00 AM EST, Route to Pharmacy Electronically, [facility] ST[facility] 14427, 179, cm, 06/10/24 8:17:00 EST, Height, 111, kg, 04/14/24 7:24:00 EDT, Dry Weight Start Date: 06/14/24 Status: Ordered Medication Dispense Status: Completed Quantity: 180.0 Unit: tablet Total Allowed Fills: 1 Fills Dispensed: 0 Ventolin HFA 108 mcg/inh inhalation aerosol with adapter See Instructions, INHALE 2 PUFFS EVERY 6 HOURS NEEDED WHEEZE/SHORTNESS OF BREATH, # 18 each, 11 Refills, Maintenance, 06/22/25 4:31:00 PM EST, [facility] STORE 31497, 179, cm, 06/14/25 8:20:00 EST, Height, 111, [...] Maintenance, 10/22/21 10:11:00 AM EDT, Tablet, [facility], Partial fill upon patient request if [...] diabetes mellitus with peripheral angiopathy Confirmed Active Diagnosis Diagnosis Type Effective Dates Health Status Clinical Service Informant COPD exacerbation Discharge Diagnosis 07/16/25 Viral URI with cough Discharge Diagnosis 07/16/25 Vital Signs Most recent to oldest [Reference Range]: 1 Height 179 cm (07/16/25 9:00 AM) Oxygen Saturation [94-100 %] 95 % (07/16/25 9:00 AM) Pulse Rate [55-90 bpm] 82 bpm (07/16/25 9:00 AM) Blood Pressure [90-138/55-84 mm Hg] 138/ 98mm Hg (07/16/25 9:00 AM) Respiratory Rate [16-30 br/min] 25 br/mi n (07/16/25 9:00 AM) Temperature [96.8-100.4 DegF] 98.3 DegF (07/16/25 9:00 AM) Mode of Delivery (Oxygen) Room air (07/16/25 9:00 AM) Blood pressure sites Arm, left (07/16/25 9:00 AM) Temperature Route Temporal (07/16/25 9:00 AM) Social History Social History Type Response Smoking Status Former smoker, quit more than 30 days ago entered on: 07/07/25 Sexual Orientation Self described orien tation: ; Straight or heterosexual Sex Sex Representation Male (finding) Note * Nidhi Whipple: PERFORM Event Display: Patient Education/Instruction Authored Date: [id number] Ambulatory Adult Visit Summary [facility] [address] [address] Name: MATHIEU MUNOZ : 1950?? Visit: 07/16/2025 08:19?? Ambulatory Visit Instructions ?? Your Care Team Primary Care Provider Stna THOMPSON, Tito Fraser? This Visit Provider [facility] Your Diagnosis COPD exacerbation Viral URI with cough Vitals Signs Temperature: 98.3 DegF Height: 179 cm Pulse Rate: 82 bpm ?? Respiratory Rate: 25 br/min ?? Systolic Blood Pressure: 138 mm Hg ?? Diastolic Blood Pressure:??98 mm Hg??High ?? Oxygen Saturation: 95 % ?? What to do next Scheduled Follow-Up Appointments Friday2025 8:00 AM EST ?? Type: Return With: Taylor Zavala NP Where: [facility] [address] [place] [address]- Status: Pending Friday2025 9:30 AM EST ?? Type: SN - Endoscopy Where: [facility] Status: Pending Medications The list below reflects the information in our records and provided by you today along with any changes made during this visit. Please continue your medications until treatment is completed or stopped by your provider. If this is different from the information you have or there are other questions,please contact the prescribing provider. What How Much When Why Instructions New Amoxicillin-Clavulanate (Augmentin 875 mg-125 mg oral tablet) 1 tab(s) Oral Every 12 hours COPD exacerbation Viral URI with cough Duration: 10 Days Ordering Physician: Chelsea Schmidt MDup at [facility]/pharmacy #1025 New Guaifenesin/ Dextromethorphan (Mucinex DM Max Strength oral tablet, extended release) 1 tab(s) Oral Twice a day as needed for Cough and Congestion COPD exacerbation Viral URI with cough Ordering Physician: Chelsea Schmidt MD Pickup at [facility]/pharmacy #1026 Changed PredniSONE (predniSONE 10 mg oral tablet) See instructions COPD exacerbation Viral URI with cough Special Instructions: 6 tablet By Mouth Daily ??x3 days 5 tablet By Mouth Daily ??x3 days 4 tablet By Mouth Daily ??x3 days 3 tablet By Mouth Daily ??x3 days 2 tablet By Mouth Daily ??x3 days 1 tablet By Mouth Daily ??x3 days with food Ordering Physician: Chelsea Schmidt MD ?? Pickup at [facility]/pharmacy #1026 Changed PredniSONE (predniSONE 20 mg oral tablet) See instructions Special Instructions: Take 2 tablets by mouth daily x 5 days, then 1.5 tablets by mouth daily x 2 days, then 1 tablet by mouth daily x 2 days, then 0.5 tablet by mouth daily x 2 days, then stop Ordering Physician: Taylor Zavala NP ?? Unchanged Albuterol (Ventolin HFA 108 mcg/ inh inhalation aerosol with adapter) See instructions Special Instructions: INHALE 2 PUFFS EVERY 6 HOURS NEEDED WHEEZE/ SHORTNESS OF BREATH Ordering Physician: Taylor Zavala NP ?? Unchanged Ascorbic Acid (Vitamin C) 1,000 Milligram Oral Daily Unchanged Aspirin (aspirin 81 mg oral delayed release tablet) 1 tab(s) Oral Daily Unchanged Azithromycin (azithromycin 250 mg oral tablet) See instructions Special Instructions: TAKE 1 TABLET BY MOUTH FRIDAY, FRIDAY AND FRIDAY. PLEASE START AFTER COMPLETING 5 DAY COURSE. Ordering Physician: Taylor Zavala NP ?? Unchanged Azithromycin (Zithromax Z-Anurag 250 mg oral tablet) 1 pack/packet Oral Once Bronchitis with wheezing Ordering Physician: Liza Contreras Unchanged Cetirizine (cetirizine 10 mg oral tablet) 1 tab(s) Oral Daily as needed for NEEDED FOR ALLERGIES Ordering Physician: Taylor Zavala NP Unchanged Dicyclomine (dicyclomine 10 mg oral capsule) 1 capsule Oral 4 times a day as needed for abdominal cramping Constipation Ordering Physician: Zeny Sears NP Unchanged Docusate (Colace sodium 100 mg oral capsule) 1 capsule Oral Daily as needed for for constipation Constipation Ordering Physician: Zeny Sears NP Unchanged Durable Medical Equipment (Alcohol Wipes) See instructions Special Instructions: clean skin each time before pricking to check blood sugar levels ? Code: E11.9 Take Blood Sugar Once A day Ordering Physician: Ezra Lowery MD ?? Unchanged Durable Medical Equipment (Freestyle Flash Glucose Meter) See instructions Duration: 30 Days Special Instructions: use as directed for Type 2 Diabetes Mellitus ?? Code: E11.9 Take Blood Sugar Once A day Ordering Physician: Ezra Lowery MD ?? Unchanged Durable Medical Equipment (Freestyle Lite Lancets) See instructions Duration: 30 Days Special Instructions: use as directed for Type 2 Diabetes Mellitus ? Code: E11.9 Take Blood Sugar Once A day Ordering Physician: Ezra Lowery MD ?? Unchanged Durable Medical Equipment (Freestyle Lite Monitor) See instructions Special Instructions: Code: E11.9 Take Blood Sugar Once A day May be substituted Ordering Physician: Kenzie Shetty DO ?? Unchanged Durable Medical Equipment (Freestyle Lite Test Strips) See instructions Duration: 30 Days Special Instructions: use as directed for Type 2 Diabetes Mellitus ? Code: E11.9 Take Blood Sugar Once A day Ordering Physician: Ezra Lowery MD ?? Unchanged Durable Medical Equipment (Home Blood Pressure Monitor) See instructions Special Instructions: ICD l10 and I50.9 Ordering Physician: Liza Veras NP ?? Unchanged Durable Medical Equipment (Nebulizer supplies) See instructions Special Instructions: Nebulizer Supplies A7003 Neb Disp Set ??A7014 Neb non-Disp Filter ??A7005 NebNon-Disp set A7015 Aerosol Mask A7013 Neb Disp Filter ?? Dx: J44.9 Length of need lifetime 99 month Ordering Physician: Diana Tobin NP ?? Unchanged Durable Medical Equipment (Nebulizer/ Compressor) See instructions Special Instructions: E0570 Nebulizer A7003 Neb Disp Set ??A7014 Neb non-Disp Filter ??A7005 Neb Non-Disp set A7015 Aerosol Mask A7013 Neb Disp Filter ??length of need lifetime 99 months ??for home use Ordering Physician: Diana Tobin NP ?? Unchanged Durable Medical Equipment (Nebulizer/ Compressor) See instructions Special Instructions: Nebulizer Machine A7003 Neb Disp Set ??A7014 Neb non-Disp Filter ??A7005 Neb Non-Disp set A7015 Aerosol Mask A7013 Neb Disp Filter ??length of need lifetime 99 months ??for homeuse Dx Ordering Physician: Taylor Zavala NP ?? Unchanged fluticason/ umeclidinium/ vilant (fluticasone/ umeclidinium/ vilanterol 200 mcg-62.5 mcg-25 mcg/ inh inhalation powder) 1 puff(s) Inhalation Daily Special Instructions: at the same time every day Ordering Physician: Taylor Zavala NP ?? Unchanged Fluticasone Nasal (fluticasone 50 mcg/ inh nasal spray) Unchanged Furosemide (furosemide 40 mg oral tablet) Special Instructions: TAKE 1 TABLET BY MOUTH EVERY DAY IN THE MORNING ?? Unchanged Glimepiride (glimepiride 1 mg oral tablet) See instructions Special Instructions: Take in AM and PM Ordering Physician: Ezra Lowery MD ?? Unchanged magnesium/ potassium/ sodium sulfates (Suprep Bowel Prep Kit oral liquid) 177 Milliliter Oral Once Screening for colorectal cancer Special Instructions: Take the first 6 oz bottle the evening before colonoscopy, and the second 6 oz bottle the morning of colonoscopy. Ordering Physician: Zeny Sears NP ?? Unchanged magnesium/ potassium/ sodium sulfates (Suprep Bowel Prep Kit oral liquid) See instructions Special Instructions: Bottle 1: 5pm the night before the procedure Bottle 2: 6 hours before the time of the procedure ?? each bottle followed by two 16-ounce cups of water Ordering Physician: Zeny Sears NP ?? Unchanged Metformin (metFORMIN 1000 mg oral tablet) 1 tab(s) Oral Twice a day Ordering Physician: Ezra Lowery MD Unchanged Metoprolol (Metoprolol Succinate ER 50 mg oral tablet, extended release) 1 tab(s) Oral Daily Ordering Physician: Jamie Longo MD Unchanged Multivitamin With Minerals (PreserVision AREDS oral capsule) Oral Twice a day Unchanged Omeprazole (omeprazole 20 mg oral enteric coated capsule) 1 capsule Oral Daily GERD (gastroesophageal reflux disease) Ordering Physician: Zeny Sears NP Unchanged Solifenacin (solifenacin 10 mg oral tablet) 1 tab(s) Oral Daily Unchanged Valsartan (valsartan 40 mg oral tablet) 1 tab(s) Oral Twice a day Ordering Physician: Jamie Longo MD Unchanged Warfarin (warfarin 7.5 mg oral tablet) 1 tab(s) Oral Daily Ordering Physician: Ezra Lowery MD Pharmacy Information [facility]/pharmacy #[id number]: [address], [place] [phone] Medications and Immunizations Administered Medications Given During Visit No medications given during this visit.?? Allergies (NKA means No Known Allergies) Fish??SOB, swelling Flomax??insomnia Nicotine Patch??rash,itching Common Emergency Awareness Tips IS IT A STROKE? Act FAST and Check for these signs: FACE Does the face look uneven? ARM Does one arm drift down? SPEECH Does their speech sound strange? TIME Call at any sign of stroke ?? Heart Attack Signs Chest discomfort: Most heart attacks involve discomfort in the center of the chest and lasts more than a few minutes, or goes away and comes back. It can feel like uncomfortable pressure, squeezing, fullness or pain. Discomfort in upper body: Symptoms can include pain or discomfort in one or both arms, back, neck, jaw or stomach. Shortness of breath: With or without discomfort. Other signs: Breaking out in a cold sweat, nausea, or lightheaded. Remember, MINUTES DO MATTER. If you experience any of these heart attack warning signs, call to get immediate medical attention! ?? Smoking can increase your chances of developing chronic health problems and can cause harmful effects to other family members in your house. If you smoke, you are strongly encouraged to quit. Please call [facility] at [phone] or [phone] ([phone]) or log in to [email or web address] for referrals to smoking cessation programs. ?? The National Suicide Prevention Hotline is available 24/02 if you or someone you know needs to find a reason to keep living. By calling 5-356-251-Sherpany (3966) you'll be connected to a skilled, trained counselor at a crisis center in your area. [facility] Portal You can view and manage your care through the patient portal or by using a health care sylvester of your choosing. [employer] is a website that allows you to securely view your medical information including your hospital discharge summary, office visit summaries, medications and follow-up visits. You can also request appointments, renew medications, and request access to your medical information using a health care sylvester of your choosing, or just ask a question. You can enroll at [email or web address] or register during your next office visit. [facility], in keeping with [facility] guidance, no longer requires face masks for staff, patientsor visitors in most situations. Similiar to time spent indoors at other locations, there is the chance that you were exposed to repiratory viruses during your time with us (such as flu or COVID-19). If you develop symptoms concerning for a viral respiratory infection, please seek testing (and treatment if indicated) from your medical provider or home test kit. ?? Disclaimer: The information provided is of a general nature and is intended to be used in conjunction with the recommendations and advice of your health care practitioner. Every effort has been made to ensure that the information provided is accurate and complete at the time it is provided to you however, as your needs change, or, as new information becomes available, different or additional instructions may be required. ?? If you have questions, please consult with your primary care provider or pharmacist, as appropriate. This information is not intended to serve as substitution for assessment and evaluation by a qualified health care provider. If you do not have a primary care provider, you may find a [facility] provider by calling [facility] at [phone]. Patient Care team information Care Team Personnel Name: Gilda Atkinson RN Position: [facility] RN Member Role: Primary Care Nurse Name: Tito Pierce MD Position: Reference Physician Member Role: PCP Address: [address] [place] [address] Telecom: Name: Rina Stringer RN Position: [facility] RN Member Role: Primary Care [...] Care Nurse Name: Kaley Feng RN Position: [facility] RN Member Role: Primary Care Nurse Name: Natalya Davis RN Position: [facility] ED RN W/OE and Tasks Member Role: Primary Care Nurse Name: Kaylene Reid RN Position: [facility] RN Member Role: Primary Care Nurse Name: Cedric Dodson RN Position: [facility] RN Member Role: Primary Care Nurse Name: Cory Zhou RN Position: [facility] RN Member Role: Primary Care Nurse Name: Deni Gramajo MD Position: [facility] Outreach Member Role: Lifetime Consulting Physician Address: [address] [facility] [address] Telecom: Name: Brenda Mackenzie RN Position: [facility] RN Member Role: Primary Care Nurse Name: Elsa Hawkins RN Position: [facility] RN Member Role: Primary Care Nurse Name: Malathi Borges RN Position: [facility] RN Member Role: Primary Care Nurse Name: Riley Urias MD Position: [facility] Renal MD Member Role: Lifetime Consulting Physician Address: [address] [facility] [place] [id number] Telecom: Name: Heide Carrero RN Position: [facility] RN Member Role: Primary Care Nurse Name: Janett Venegas RN Position: [facility] AMB Nurse Member Role: Primary Care Nurse Name: Jorgito Kim RN Position: [facility] RN Member Role: Primary Care Nurse Name: Alberta Doherty RN Position: [facility] SN RN Member Role: Primary Care Nurse Name: Caprice Hinds RN Position: [facility] RN Member Role: Primary Care Nurse Name: Gillian Uriostegui RN Position: [facility] Hospital Director Traffic And Planning Member Role: Primary Care Nurse Name: Heide Soriano RN Position: [facility] RN Member Role: Primary Care Nurse Name: Carie Geiger RN Position: [facility] RN Member Role: Primary Care Nurse Care Team Related Persons Name: MARIA A MUNOZLY Name: ANMOL MUNOZ Insurance Providers Guarantor name: MATHIEU MUNOZ [facility] Information #: 1 Payer: MEDICARE B Payer Identifier: ISAAC Member Number: [id number] Group Number: NA Subscriber Identifier: [id number] Relationship to Subscriber: self Coverage Type: NA Coverage Verification Date: NA Telecom: NA Address: Health Plan Information #: 2 Payer: JENNIFER CHAIDEZ Payer Identifier: NA Member Number: [id number] Group Number: ISAAC Subscriber Identifier: [id number] Relationship to Subscriber: self Coverage Type: Medicare Other Coverage Verification Date: NA Telecom: NA Address:
--- OUTSIDE RECORDS SUMMARY | 2025-07-27 08:16 | XMS_ITS | Clinical Summary ---
Author Organization [facility] Address [address] [place] [address] Phone Care Team Providers Care Highway Painter Helper Name Role Phone Jonathan Campoverde MD Primary Care Provider [phone] Allergies Active Allergy Reactions Criticality Noted Date [...] ENHANCE SUPPLEMENT MEDICARE PART A & B [facility] MEDICARE [place] [facility] [place] [facility] [place] Address: [address] [place] [id number] MEDICARE PART A & B [facility] MEDICARE ENHANCE SUPPLEMENT MEDICARE PART A & B [facility] MEDICARE [place] [facility] [place] [facility] [place] Address: [address] [place] [id number] MEDICARE PART A & B [facility] MEDICARE EN[place] [facility] [place] [facility] [place] Address: [facility] [id number] [place] [id number] MEDICARE PART A & B [facility] MEDICARE ENHANCE SUPPLEMENT Care Teams Highway Painter Helper Relationship Specialty Start Date End Date Jonathan Campoverde MD [address] [place] [address] [place] [address] PCP - General Internal Medicine 06/03/24 Additional Source Comments The information contained in this document represents components of the legal health record. It is not the complete legal health record.[facility]
[2025-07-27 08:36] LABS: Prothrombin Time Whole Bld POC 30.4 sec (11.1-13.5); ~PT, ~INR - Anti Coag Clinic 2.5 (0.9-1.1)
--- NOTE | 2025-07-27 08:42 | MHC.OFFVISCO ---
Intake Intake Visit Reasons: Anticoagulation Allergies seafood Allergy (Severe, Verified 07/27/25 08:31) Angioedema, SOB nicotine Allergy (Intermediate, Verified 07/27/25 08:31) Rash fish derived (FISH) Allergy (Unknown, Verified 07/27/25 08:31) ANGIOEDEMA tamsulosin (Flomax) Adverse Reaction (Intermediate, Verified 07/27/25 08:31) nightmares Medication List - Last Reconciled 07/27/25 by Clair Felder RN albuterol sulfate mg inhalation Q6H PRN albuterol sulfate 90 mcg/actuation inhalation amoxicillin-pot clavulanate 875-125 mg 1 tab PO BID azithromycin (Zithromax) 250 mg PO 3XW blood sugar diagnostic (FreeStyle Lite Strips) daily blood-glucose meter (FreeStyle [place] Lite kit) As directed cetirizine 10 mg PO DAILY PRN [custom heat molded multidensity innersoles wear 3 pairs of custom heat molded multidensity innersoles wear] diclofenac sodium 1% 2 grams topical QID docusate sodium (Stool Softener) 100 mg PO DAILY [extra depth orthopedic shoes with 3 pairs of custom heat molded multidensity innersoles wear] fluticasone propionate 50 mcg/actuation 1 spray intranasal DAILY aajijyfygdl-bbeduimpa-jqlhujuo 100-62.5-25 mcg (Trelegy Ellipta) 1 ea inhalation DAILY furosemide 40 mg PO QAM glimepiride 1 mg PO DAILY hydrocortisone 2.5% appl topical lancets (FreeStyle Lancets) test daily metformin 1,000 mg PO BID metoprolol succinate ER 50 mg PO DAILY omeprazole 40 mg PO DAILY polyethylene glycol 3350 (Miralax) 17 grams PO DAILY prednisone mg PO saw palmetto 450 mg PO BID solifenacin 10 mg PO DAILY triamcinolone acetonide 0.1% 1 appl topical BID-TID vitamins A,C,J-runl-winvzn 2,148 mcg-113 mg-45 mg-17.4mg (PreserVision AREDS) 1 tab PO BID warfarin 7.5 mg See Protocol PO DAILY MDD 1.5 tablets daily Nursing Note PT.HAS 5 DAYS REMAINING ON PREDNISONE AND HE IS DONE WITH THE AMOX. PT.STATES THAT HER IS FEELING MUCH BETTER AND HAS RETURNED TO WORK. WILL CONTINUE PRESENT WARFARIN DOSING AND FOLLOW-UP IN 1 WEEK. PT.WILL CONTINUE WITH EXTRA GREENS WHILE STILL ON THE PRED.TAPER. GTOOD UNDERSTANDING OF DOSING INSTR. Anti-Coag Initial Assessment Social Hx Patient Tobacco Use Status: Former Tobacco user Tobacco use type: Cigarette alcohol intake: current Alcohol intake frequency: holidays/special occasions only Cardiovascular Hx: HTN, CHF and Cardiomyopathy Lung Disease HX: Asthma, COPD and DVT/PE Endocrine Hx: Diabetes Blood Disorder Hx: Other GI Hx: Other Cancer HX: No Coding Level of Care Code Est Patient Level 1 Diagnoses Current use of anticoagulant therapy Z79.01 Assessment & Plan Assessment & Plan (1) Current use of anticoagulant therapy: Code(s): Z79.01 - FPC (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
== END 2025-07-27 08:45 | disposition home or self-care (01) ==
LOC: HO.ACS 08:12
PROVIDERS: PCP Internal Medicine; Visit Provider Internal Medicine Medical Oncology
DX: Z79.01 Long term (current) use of anticoagulants (principal)

== ENCOUNTER → 2025-07-27 08:12 | Outpatient (BNVA) | payer MEDICARE, OTHER, SELFPAY | PROVIDERS: PCP Internal Medicine; Visit Provider Internal Medicine Medical Oncology | DX: Z86.711 Personal history of pulmonary embolism (principal); Z51.81 Encounter for therapeutic drug level monitoring; Z79.01 Long term (current) use of anticoagulants | CPT/HCPCS: 85610; 99211 ==

== ENCOUNTER 2025-08-03 08:12 | Outpatient (AMB) | payer MEDICARE, OTHER, SELFPAY ==
--- OUTSIDE RECORDS SUMMARY | 2025-08-03 08:15 | XMS_ITS | Clinical Summary ---
Author Organization [address] [facility] Address [address] [place] [address] Phone Care Team Providers Care Pharmacy Technology Instructor Name Role Phone Physician, Pcp Unknown Primary Care Provider Kaia vailable Encounters Date Type Department Care Team Description 06/10/2025 Lab Requisition [facility] - Main Lab [address] [place] [address] Jimmy Allen MD Gross hematuria [...] AM EDT) Final Diagnosis A. Urine, Voided, [id number]: Negative for high grade urothelial carcinoma. Results of UroVysion fluorescence in situ hybridization (FISH) testing: CEP3: Normal CEP7: Normal CEP17: Normal LSI 9p21: Normal Interpretation: Normal profile Controls stained appropriately. Note: The results are intended as a screening device and should be interpreted in association with other clinical and pathological findings. 06/17/2025 12:12 PM EST [facility] at 1212 EST Specimen A Adequacy Satisfactory for evaluation 06/17/2025 12:12 PM EST [facility] Clinical Information Gross hematuria R31.0 Urine Cytology/FISH (now) 06/17/2025 12:12 PM EST [facility] Gross Description A. Urine, Voided, [id number]: Received one ThinPrep slide for cytology and one ThinPrep slide for UroVysion FISH 06/17/2025 12:12 PM [facility] Disclaimer Unless otherwise specified, all tissue is 10% NB formalin fixed and paraffin embedded. Technical pathology services provided by [facility] at [address] [facility] [address], [place] [address] (CLIA #[id number]/Iliana Hobson MD, Weather Forecaster) 06/17/2025 12:12 PM [facility] Urine Urine specimen from urethra / Unknown 06/02/2025 06/10/2025 10:45 AM EST us Jimmy Allen MD LAB CYTOLOGY ORDERABLES Final R esult [facility] [address] [place] [address], from Last 3 Months Insurance MEDICARE [facility] Care Teams Pharmacy Technology Instructor Relationship Specialty Start Date End Date Physician, Pcp Unknown PCP - General 06/10/25
--- OUTSIDE RECORDS SUMMARY | 2025-08-03 08:15 | XMS_ITS | Clinical Summary ---
Author Organization [facility] Address [address] [place] [address] Phone Care Team Providers Care Property And Casualty Insurance Agent Name Role Phone Jonathan Campoverde MD Primary Care Provider [phone] Allergies Active Allergy Reactions Criticality Noted Date [...] ENHANCE SUPPLEMENT MEDICARE PART A & B [facility] MEDICARE ENHANCE SUPPLEMENT [facility] Address: [address] [place] [id number] MEDICARE PART A & B [facility] MEDICARE ENHANCE SUPPLEMENT MEDICARE PART A & B [facility] MEDICARE ENHANCE SUPPLEMENT [facility] Address: [address] [place] [id number] MEDICARE PART A & B [facility] MEDICARE ENHANCE SUPPLEMENT [facility] Address: [facility] [id number] [place] [id number] MEDICARE PART A & B [facility] MEDICARE ENHANCE SUPPLEMENT Care Teams Property And Casualty Insurance Agent Relationship Specialty Start Date End Date Jonathan Campoverde MD [address] [place] [address] [place] [address] PCP - General Internal Medicine 06/03/24 Additional Source Comments The information contained in this document represents components of the legal health record. It is not the complete legal health record.[facility]
--- OUTSIDE RECORDS SUMMARY | 2025-08-03 08:15 | XMS_ITS | Encounter Summary ---
Author Organization [facility] Address [address] [place] [address] Care Team Providers Care Catalyst Plant Supervisor Name Role Phone Physician, Pcp Unknown Primary Care Provider Kaia vailable Encounter Details Date Type Department Care Team (Late st Contact Info) Description 06/10/2025 Lab Requisition [facility] - Main Lab [address] [facility] [place] [address] Jimmy Allen MD [address] [facility] [address] [place] [id number] Gross hematuria Social History Tobacco Use Types [...] AM EDT) Final Diagnosis A. Urine, Voided, [id number]: Negative for high grade urothelial carcinoma. Results of UroVysion fluorescence in situ hybridization (FISH) testing: CEP3: Normal CEP7: Normal CEP17: Normal LSI 9p21: Normal Interpretation: Normal profile Controls stained appropriately. Note: The results are intended as a screening device and should be interpreted in association with other clinical and pathological findings. 06/17/2025 12:12 PM EST [facility] LAB at 1212 EST Specimen A Adequacy Satisfactory for evaluation 06/17/2025 12:12 PM [facility] Clinical Information Gross hematuria R31.0 Urine Cytology/FISH (now) 06/17/2025 12:12 PM [facility] Gross Description A. Urine, Voided, [id number]: Received one ThinPrep slide for cytology and one ThinPrep slide for UroVysion FISH 06/17/2025 12:12 PM [facility] Disclaimer Unless otherwise specified, all tissue is 10% NB formalin fixed and paraffin embedded. Technical pathology services provided by [facility] at [address] [facility] [address], [place] [address] (CLIA #[id number]/Iliana Hobson MD, Senior Ruby Developer) 06/17/2025 12:12 PM [facility] Urine Urine specimen from urethra / Unknown 06/02/2025 06/10/2025 10:45 AM EST us Jimmy Allen MD LAB CYTOLOGY ORDERABLES Final R esult [facility] [address] [place] [address], documented in this encounter Visit Diagnoses Diagnosis Gross hematuria documented in this encounter Care Teams Catalyst Plant Supervisor Relationship Specialty Start Date End Date Physician, Pcp Unknown PCP - General 06/10/25 documented as of this encounter
[2025-08-03 08:32] LABS: Prothrombin Time Whole Bld POC 35.9 sec (11.1-13.5); ~PT, ~INR - Anti Coag Clinic 3.0 (0.9-1.1)
--- NOTE | 2025-08-03 08:35 | MHC.OFFVISCO ---
Intake Intake Visit Reasons: Anticoagulation Allergies seafood Allergy (Severe, Verified 08/03/25 08:26) Angioedema, SOB nicotine Allergy (Intermediate, Verified 08/03/25 08:26) Rash fish derived (FISH) Allergy (Unknown, Verified 08/03/25 08:26) ANGIOEDEMA tamsulosin (Flomax) Adverse Reaction (Intermediate, Verified 08/03/25 08:26) nightmares Medication List - Last Reconciled 08/03/25 by Yakelin Jenkins RN albuterol sulfate mg inhalation Q6H PRN albuterol sulfate 90 mcg/actuation inhalation amoxicillin-pot clavulanate 875-125 mg 1 tab PO BID azithromycin (Zithromax) 250 mg PO 3XW blood sugar diagnostic (FreeStyle Lite Strips) daily blood-glucose meter (FreeStyle [place] Lite kit) As directed cetirizine 10 mg PO DAILY PRN [custom heat molded multidensity innersoles wear 3 pairs of custom heat molded multidensity innersoles wear] diclofenac sodium 1% 2 grams topical QID docusate sodium (Stool Softener) 100 mg PO DAILY [extra depth orthopedic shoes with 3 pairs of custom heat molded multidensity innersoles wear] fluticasone propionate 50 mcg/actuation 1 spray intranasal DAILY kzohecrwdml-jrlwrmihb-skvnywvy 100-62.5-25 mcg (Trelegy Ellipta) 1 ea inhalation DAILY furosemide 40 mg PO QAM glimepiride 1 mg PO DAILY hydrocortisone 2.5% appl topical lancets (FreeStyle Lancets) test daily metformin 1,000 mg PO BID metoprolol succinate ER 50 mg PO DAILY omeprazole 40 mg PO DAILY polyethylene glycol 3350 (Miralax) 17 grams PO DAILY prednisone mg PO saw palmetto 450 mg PO BID solifenacin 10 mg PO DAILY triamcinolone acetonide 0.1% 1 appl topical BID-TID vitamins A,C,P-rxqd-jafoat 2,148 mcg-113 mg-45 mg-17.4mg (PreserVision AREDS) 1 tab PO BID warfarin 7.5 mg See Protocol PO DAILY MDD 1.5 tablets daily Nursing Note INR: 3.0 in therapeutic range Medications and supplements reviewed- Just completed antbx and prednisone No changes in health, diet, medications, or supplements, Denies any signs and symptoms of bleeding or bruising or clotting. 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 Patient verbalizes understanding of instructions given Anti-Coag Initial Assessment Social Hx Patient Tobacco Use Status: Former Tobacco user Tobacco use type: Cigarette alcohol intake: current Alcohol intake frequency: holidays/special occasions only Cardiovascular Hx: HTN, CHF and Cardiomyopathy Lung Disease HX: Asthma, COPD and DVT/PE Endocrine Hx: Diabetes Blood Disorder Hx: Other GI Hx: Other Cancer HX: No Coding Level of Care Code Est Patient Level 1 Diagnoses Current use of anticoagulant therapy Z79.01 Assessment & Plan Assessment & Plan (1) Current use of anticoagulant therapy: Code(s): Z79.01 - detention (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
== END 2025-08-03 08:39 | disposition home or self-care (01) ==
LOC: HO.ACS 08:12
PROVIDERS: PCP Internal Medicine; Visit Provider Internal Medicine Medical Oncology
DX: Z79.01 Long term (current) use of anticoagulants (principal)

== ENCOUNTER → 2025-08-03 08:12 | Outpatient (BNVA) | payer MEDICARE, OTHER, SELFPAY | PROVIDERS: PCP Internal Medicine; Visit Provider Internal Medicine Medical Oncology | DX: I26.99 Other pulmonary embolism without acute cor pulmonale (principal); Z51.81 Encounter for therapeutic drug level monitoring; Z79.01 Long term (current) use of anticoagulants | CPT/HCPCS: 85610; 99211 ==